=== PATIENT | female | born 1960 | race Caucasian/White ===

== ENCOUNTER 2016-09-16 15:59 | Emergency (ER) | payer BC, OTHER ==
[~2016-09-16] VITALS: Ht 162.6 cm; Wt 90.6 kg
[~2016-09-16 15:59] MED LIST: ACET-1256 PO; ASPI-390 PO; BACL10TA PO; CHOL1000 PO; GABA600T PO; LEVO112T4 PO; LIDO5DIS10 TOP; LINA1CAP2 PO; MISCCAP80 PO; ONDA4TAB46 PO; PANT40TA PO; POLY335025 PO; SERT100T PO; SIMV40TA2 PO
[2016-09-16 16:08] VITALS: TEMP 36.8; Ht 162.6 cm; Wt 90.6 kg
[2016-09-16] MEDS ORDERED: PROCHLORPERAZINE 5 MG/ML 2 ML VIAL IV STA (16:21)
[2016-09-16] MEDS ORDERED: SODIUM CHLORIDE 0.9% 1000ML 1,000 ML IV STA (16:21)
[2016-09-16] MEDS ORDERED: DiphenhydrAMINE HCL 50 MG/ML VIAL IV STA (16:21)
[2016-09-16 16:58] LABS: BASO % 0.4 %; BASO ABS # 0.02 K/uL (0-0.2); COMPLETE YES; EOS % 0.8 %; HEMATOCRIT 42.9 % (37-47); LYMPH % 49.4 %; LYMPH ABS # 2.41 K/uL (1.2-3.4); MEAN CELL VOLUME 85.3 fL (80-100); MEAN CORPUSCULAR HEMOGLOBIN 28.4 pg (25-34); MEAN CORPUSCULAR HGB CONC 33.3 g/dl (32-36); MEAN PLATELET VOLUME 10.4 fL (7.4-10.4); MONO % 5.7 %; NEUT % 43.7 %; PLATELET COUNT 183 K/uL (130-400); RED BLOOD COUNT 5.03 M/uL (4.2-5.4); WHITE BLOOD COUNT 4.88 K/uL (4.8-10.8)
[2016-09-16 17:08] LABS: BUN/CREATININE RATIO 8.7 (10-20); CALCIUM 9.6 mg/dl (8.5-10.1); CREATININE 1.1 mg/dl (0.60-1.20); POTASSIUM 4.1 mmol/L (3.5-5.1)
--- NOTE | 2016-09-16 17:45 | DIAGNOSTIC IMAGING REPORT ---
HEAD CT NONCONTRAST CT DOSE: 638.56 mGycm HISTORY: Headache. Right facial numbness. TECHNIQUE: Multiaxial CT images of the head were performed without the use of intravenous contrast. Automated exposure control was utilized for this study. Comparison: Head CT 03/22/2016. Findings: The paranasal sinuses and mastoid air cells are clear. The calvarium and skull base are intact. The ventricles and sulci are within normal limits. There is no mass, hematoma, midline shift, or acute infarct. Small chronic periventricular white matter lacunar infarcts remain unchanged. Impression: No significant change compared to the prior study. No acute intracranial abnormality. Electronically signed by: Matthew Owens M.D. 09/16/2016 5:44 PM Dictated Date/Time: 09/16/2016 5:41 PM
[2016-09-16] MEDS ORDERED: AMT/50 PO (17:47)
[2016-09-16] MEDS ORDERED: ABL/5 PO (17:47)
[2016-09-16] MEDS ORDERED: NF656 TP (17:47)
[2016-09-16] MEDS ORDERED: METH500T37 PO (17:47)
[2016-09-16] MEDS ORDERED: METO-157 PO (17:47)
[2016-09-16] MEDS ORDERED: CHOL100010 PO (17:47)
[2016-09-16] MEDS ORDERED: SENN-61 PO (17:47)
[2016-09-16] MEDS ORDERED: KETOROLAC TROMETHAMINE 30 MG/ML VIAL IV STA (17:56)
[2016-09-16] MEDS ORDERED: HALOPERIDOL LACTATE 5 MG/ML 1 ML VIAL IV STA (17:56)
[2016-09-16 18:08] VITALS: BP 99/46; PULSE 73; O2SAT 94
--- NOTE | 2016-09-16 19:42 | EMERGENCY ROOM VISIT NOTE ---
History Report prepared by Madyson: Amena Cisneros Under the Supervision of: Dr. Ilan Levine M.D. First contact with patient: 16:13 Chief Complaint: HEADACHE Stated Complaint: PAIN IN HEAD History of Present Illness The patient is a 55 year old female who presents to the Emergency Room with complaints of constant headache for the past 4 days. Her pain is located on the right side of her head. She describes her pain as stabbing and pounding. She rates her pain as a 10/10 in severity. Light exacerbates her pain. The patient is also experiencing nausea. Yesterday she developed numbness and tingling in the right side of her face and in her hands bilaterally. She denies fever and vomiting. She also denies any recent trauma or injury to her head. The patient saw her PCP today for these symptoms and was sent to the ED for a CT scan. The patient has a history of migraine headaches and states that this feels similar to her previous migraines. She tried taking her typical medications including Imitrex and Excedrin, but she has had no relief of her symptoms. Source of History: patient Onset: 4 days ago Position: head Symptom Intensity: 10/10 Quality: stabbing, other (pounding) Timing: constant Modifying Factors (Worsening): other (light) Associated Symptoms: + nausea, + numbness, No fevers, No vomiting Note: She also denies any recent trauma or injury to her head. Review of Systems See HPI for pertinent positives & negatives. A total of 10 systems reviewed and were otherwise negative. Past Medical & Surgical Medical Problems: (1) Constipation (2) Depressive Disorder Nec (3) Esophageal Reflux (4) Gastroparesis (5) Hypertension Nos (6) Migraine Unspecified W/O Intract Mgrn W/O Status Migrainosus (7) Pancreatitis (8) Pure Hypercholesterolem Surgical Problems: (1) Fixation hardware in spine (2) H/O lumbar hemilaminectomy (3) History of bowel resection (4) History of cholecystectomy (5) History of hysterectomy (6) S/P lumbar spinal fusion (7) S/P repair spinal fluid leak Family History Heart disease FATHER (ND, triple bypass) Social History Smoking Status: Never Smoker Marital Status: Housing Status: lives with family Occupation Status: disabled Current/Historical Medications Scheduled Amitriptyline HCl (Amitriptyline HCl), 50 MG PO DAILY Aripiprazole (Abilify), 5 MG PO DAILY Baclofen (Lioresal), 10 MG PO BID Cholecalciferol (Vitamin D), 1,000 MG PO DAILY Gabapentin (Neurontin), 600 MG PO QID Levothyroxine Sodium (Levothyroxine Sodium), 112 MCG PO QAM Lidocaine (Lidoderm Patch 5%), 1 PATCH TP DAILY Linaclotide (Linzess), 290 MCG PO QAM Methocarbamol (Robaxin), 500 MG PO QID Metoclopramide (Reglan), 10 MG PO TID Pantoprazole (Protonix), 40 MG PO QAM Probiotic Product (Probiotic), 4 TAB PO QAM Sertraline Hcl (Zoloft), 200 MG PO QAM Simvastatin (Zocor), 40 MG PO HS Scheduled PRN Acetaminophen (Tylenol), 500 MG PO QID PRN for Pain Ondansetron Hcl (Zofran), 4 MG PO Q6 PRN for Nausea Senna (Senokot), 17.2 MG PO DAILY PRN for Constipation Allergies Coded Allergies: Clarithromycin (Verified Allergy, Intermediate, RASH,DIARRHEA, 08/26/15) Sulfa Antibiotics (Verified Allergy, Intermediate, RASH, 08/26/15) Adhesives (Verified Allergy, Unknown, KBHB-FNRGETN-INEIL TAPE [place] OR COBAN , 08/26/15) Penicillins (Verified Allergy, Unknown, nosebleed,RASH, 08/26/15) Aspirin (Verified Adverse Reaction, Mild, NOSE BLEED, 08/26/15) Erythromycin (Verified Adverse Reaction, Mild, GI UPSET, 08/26/15) Orlistat (Verified Adverse Reaction, Mild, GI UPSET, 08/26/15) Physical Exam Vital Signs Date Time Temp Pulse Resp B/P (MAP) Pulse Ox O2 Delivery O2 Flow Rate FiO2 09/16/16 18:08 73 18 99/46 94 09/16/16 16:08 36.8 64 16 125/71 96 Room Air Physical Exam Constitutional: Vital signs reviewed. Eyes: Pupils are equal round reactive to light. Conjunctiva are noninjected. ENT: Pharynx is clear without erythema or exudate. Mucous membranes are moist. Neck supple without meningeal signs. Respiratory: Clear to auscultation bilaterally. Breath sounds are equal bilaterally. Cardiovascular: Regular rate and rhythm. No rubs or gallops. GI: Soft, nondistended and nontender. Bowel sounds are present. Musculoskeletal: No peripheral edema. No lower extremity tenderness. Integumentary: No cyanosis. Neurological: The patient is awake and alert. Cranial nerves II-XII are intact , except dysesthesia to the right side of her face. Motor is 5 out of 5 all extremities. Sensation is intact to light touch all extremities. Normal speech. No pronator drift. Psychiatric: Normal affect. Medical Decision & Procedures ER Provider Diagnostic Interpretation: Radiology results as stated below per my review and the radiologist's interpretation: HEAD CT NONCONTRAST CT DOSE: 638.56 mGycm HISTORY: Headache. Right facial numbness. TECHNIQUE: Multiaxial CT images of the head were performed without the use of intravenous contrast. Automated exposure control was utilized for this study. Comparison: Head CT 03/22/2016. Findings: The paranasal sinuses and mastoid air cells are clear. The calvarium and skull base are intact. The ventricles and sulci are within normal limits. There is no mass, hematoma, midline shift, or acute infarct. Small chronic periventricular white matter lacunar infarcts remain unchanged. Impression: No significant change compared to the prior study. No acute intracranial abnormality. Electronically signed by: Matthew Owens M.D. 09/16/2016 5:44 PM Dictated Date/Time: 09/16/2016 5:41 PM Laboratory Results 09/16/16 16:40 Red Blood Count 5.03, Mean Corpuscular Volume 85.3, Mean Corpuscular Hemoglobin 28.4, Mean Corpuscular Hemoglobin Concent 33.3, Mean Platelet Volume 10.4, Neutrophils (%) (Auto) 43.7, Lymphocytes (%) (Auto) 49.4, Monocytes (%) (Auto) 5.7, Eosinophils (%) (Auto) 0.8, Basophils (%) (Auto) 0.4, Neutrophils # (Auto) 2.13, Lymphocytes # (Auto) 2.41, Monocytes # (Auto) 0.28, Eosinophils # (Auto) 0.04, Basophils # (Auto) 0.02 09/16/16 16:40 Test 09/16/16 16:40 White Blood Count 4.88 K/uL (4.8-10.8) Red Blood Count 5.03 M/uL (4.2-5.4) Hemoglobin 14.3 g/dL (12.0-16.0) Hematocrit 42.9 % (37-47) Mean Corpuscular Volume 85.3 fL (80-100) Mean Corpuscular Hemoglobin 28.4 pg (25-34) Mean Corpuscular Hemoglobin Concent 33.3 g/dl (32-36) Platelet Count 183 K/uL (130-400) Mean Platelet Volume 10.4 fL (7.4-10.4) Neutrophils (%) (Auto) 43.7 % Lymphocytes (%) (Auto) 49.4 % Monocytes (%) (Auto) 5.7 % Eosinophils (%) (Auto) 0.8 % Basophils (%) (Auto) 0.4 % Neutrophils # (Auto) 2.13 K/uL (1.4-6.5) Lymphocytes # (Auto) 2.41 K/uL (1.2-3.4) Monocytes # (Auto) 0.28 K/uL (0.11-0.59) Eosinophils # (Auto) 0.04 K/uL (0-0.5) Basophils # (Auto) 0.02 K/uL (0-0.2) RDW Standard Deviation 44.3 fL (36.4-46.3) RDW Coefficient of Variation 14.3 % (11.5-14.5) Immature Granulocyte % (Auto) 0.0 % Immature Granulocyte # (Auto) 0.00 K/uL (0.00-0.02) Anion Gap 8.0 mmol/L (3-11) Est Creatinine Clear Calc Drug Dose 63.8 ml/min Estimated GFR () 65.9 Estimated GFR (Non- 56.9 BUN/Creatinine Ratio 8.7 (10-20) Calcium Level 9.6 mg/dl (8.5-10.1) Laboratory results as reviewed by me. Medications Administered Medications (Trade) Dose Ordered Sig/Ophelia Route Start Time Stop Time Status Last Admin Dose Admin Prochlorperazine Edisylate (Compazine Inj) 10 mg NOW STAT IV 09/16/16 16:21 09/16/16 16:23 DC 09/16/16 16:39 10 MG Diphenhydramine HCl (Benadryl Inj) 50 mg NOW STAT IV 09/16/16 16:21 09/16/16 16:23 DC 09/16/16 16:39 50 MG Sodium Chloride 1,000 ml @ 999 mls/hr Q1H1M STAT IV 09/16/16 16:21 09/16/16 17:21 DC 09/16/16 16:21 999 MLS/HR Haloperidol Lactate (Haldol Inj) 1 mg NOW STAT IV 09/16/16 17:56 09/16/16 17:57 DC 09/16/16 18:12 1 MG Ketorolac Tromethamine (Toradol Inj) 10 mg NOW STAT IV 09/16/16 17:56 09/16/16 17:57 DC 09/16/16 18:13 10 MG ED Course 1613: The patient was evaluated in room C7. A complete history and physical exam was performed. 162: NSS 1000 ml @ 999 mls/hr IV, Benadryl 50 mg IV, Compazine 10 mg IV 1754: I updated the patient on her results. She has had no improvement of her headache. 175: Toradol 10 mg IV, Haldol 1 mg IV 1842: I reassessed the patient at this time. She is feeling better and resting comfortably. I discussed the results and treatment plan with the patient. I answered all pertaining questions that she had. She expressed understanding and verbalized agreement. The patient will be discharged home. Medical Decision This is a 55-year-old female who presents with a headache and paresthesias to her fingers and face. Differential diagnosis includes migraine headache, tension headache, intracranial mass, intracranial hemorrhage, metabolic derangement. I did perform a limited focused review of portions of the patient' s old chart on the electronic medical record. The patient had an unremarkable head CT in February 2016. Medication Reconciliation: I attest that I have personally reviewed the patient' s current medication list. Blood Pressure Screening: Patient was found to have an elevated blood pressure and was referred to their primary doctor for recheck and further treatment. I did evaluate the patient as noted above. She is presenting with a migraine headache. She does have some paresthesias to her hands and right-sided her face and so was sent here by her PCP for a CAT scan to rule out stroke or bleed. She does state that the migraine is similar to her prior migraines. IV access was established. I did treat the patient with normal saline, Compazine and Benadryl IV. I did order and review the patient's blood work as noted in the electronic medical record. I did order a CT of the head. I did review the images myself as well as the radiology report as described above. There is no evidence of bleed or stroke. I did reassess the patient. She still has a headache and so I did treat her with IV Haldol and Toradol. On reevaluation the patient states she feels better and wishes to go home. She was advised follow up with her doctor. Impression Primary Impression: Acute headache Additional Impression: Paresthesia Scribe Attestation The scribe's documentation has been prepared under my direct and personally reviewed by me in its entirety. I confirm that the note above accurately reflects all work, treatment, procedures, and medical decision making performed by me. Departure Information Dispostion Home / Self-Care Referrals Keagan Sanchez M.D. Forms HOME CARE DOCUMENTATION FORM, IMPORTANT VISIT INFORMATION Patient Instructions ED Headache Migraine, ED Paraesthesias, My [facility] Additional Instructions You have been examined and treated today on an emergency basis only. This is not a substitute for, or an effort to provide, complete comprehensive medical care. It is impossible to recognize and treat all injuries or illnesses in a single emergency department visit. It is therefore important that you follow up closely with your physician. Call as soon as possible for an appointment. Return for worsening symptoms or if you develop fever, numbness or weakness on one side of your body, difficulties with your speech or walking, or any other concerning symptoms. Problem Qualifiers Primary Impression: Acute headache Headache type: unspecified Intractability: not intractable Qualified Codes : R51 - Headache
[2016-12-24] MEDS ORDERED: IBUP-1459 PO (09:38)
== END 2016-09-16 18:56 | disposition home or self-care (01) ==
LOC: C.EDC 16:26
DX: G43.909 Migraine, unspecified, not intractable, without status migrainosus (principal); R20.9 Unspecified disturbances of skin sensation; K59.00 Constipation, unspecified; F32.9 Major depressive disorder, single episode, unspecified; I10 Essential (primary) hypertension; E78.00 Pure hypercholesterolemia, unspecified; Z90.710 Acquired absence of both cervix and uterus; Z82.49 Family history of ischemic heart disease and other diseases of the circulatory system

== ENCOUNTER → 2016-11-01 | Outpatient (CLI) | payer BC ==
[~2016-11-01] MED LIST changes: +ABL/5 PO; +AMT/50 PO; -ASPI-390 PO; -CHOL1000 PO; +CHOL100010 PO; +IBUP-1459 PO; -LIDO5DIS10 TOP; +METH500T37 PO; +METO-157 PO; +NF656 TP; -POLY335025 PO; +SENN-61 PO
--- NOTE | 2016-11-01 15:15 | DIAGNOSTIC IMAGING REPORT ---
CERVICAL SPINE W/O CT DOSE: 285.65 mGy.cm HISTORY: Pain CERVICAL RADICULOPATHY, DJD, NUMBNESS TINGLING TECHNIQUE: Multiaxial CT images of the cervical spine were performed and reformatted in the sagittal and coronal plane without the use of contrast. A dose lowering technique was utilized adhering to the principles of ALARA. COMPARISON: None. FINDINGS: Straightening of normal cervical curvature. Vertebral body stature is unremarkable. Moderate degenerative disc changes throughout. This is most prominent from C5 through C7. Mild degenerative change of the lateral facets throughout the entire cervical region. No significant compromise of the bony spinal canal. No major neural foraminal narrowing. Moderate degenerative change of the C1-C2 complex. IMPRESSION: 1. Moderate degenerative change of the mid to lower cervical spine. 2. No major compromise of the spinal canal or neural foramina. 3. Moderate degenerative change of the C1-C2 complex The above report was generated using voice recognition software. It may contain grammatical, syntax or spelling errors. Electronically signed by: Sourav Arce M.D. 11/01/2016 3:13 PM Dictated Date/Time: 11/01/2016 3:09 PM
== END | disposition home or self-care (01) ==
LOC: C.CTS 13:22
PROVIDERS: ATTEND Family Medicine
DX: M54.12 Radiculopathy, cervical region (principal); M50.30 Other cervical disc degeneration, unspecified cervical region; R20.0 Anesthesia of skin; R20.2 Paresthesia of skin

== ENCOUNTER → 2017-02-24 | Outpatient (CLI) | payer BC ==
[~2017-02-24] MED LIST changes: -MISCCAP80 PO
--- NOTE | 2017-02-24 09:31 | DIAGNOSTIC IMAGING REPORT ---
THORACIC SPINE 3 VIEWS ROUTINE HISTORY: 56 years-old Female THORACIC FACET SYNDROME acute mid back pain for a few months. No reported trauma. COMPARISON: Lumbar spine radiographs 03/21/2015 TECHNIQUE: 3 views of the thoracic spine FINDINGS: Spinal stimulator leads are seen overlying the region of the central canal with distal tips at the level of T6-T7. The leads appear intact. Multilevel endplate spurring noted throughout the thoracic spine. Schmorl's node is seen involving the superior endplate of what appears to be the L2 vertebral body. No thoracic compression deformity or malalignment. Cholecystectomy clips noted within the right upper abdomen. IMPRESSION: 1. Degenerative changes of the thoracic spine without acute fracture or subluxation. 2. Spinal stimulator leads overlie the central canal with distal tips at the level of T6-T7. The above report was generated using voice recognition software. It may contain grammatical, syntax or spelling errors. Electronically signed by: Rasta Leonard M.D. 02/24/2017 9:30 AM Dictated Date/Time: 02/24/2017 9:28 AM
== END | disposition home or self-care (01) ==
LOC: C.RADBC 08:59
PROVIDERS: ATTEND Physician Assistant Medical
DX: G54.0 Brachial plexus disorders (principal)

== ENCOUNTER 2024-03-04 17:40 | Inpatient (IN) ==
[2024-03-04] MEDS ORDERED: MoRPHine SULFATE 2 MG/ML CARP IV PRN (17:47)
--- NOTE | 2024-03-04 17:52 | Emergency Department Note ---
Impression & Plan Hip fracture, Elbow fracture, Fall ED Provider Note NAME: LORRIANE WILL AGE: 63 SEX: F : 1960 ARRIVES VIA: Ambulance INFORMANT: Patient ED PROVIDER(S): Lm Ruiz DO CHIEF COMPLAINT: Fall HPI: Patient is a 63-year-old female with a past medical history of anxiety, depression, GERD and hyperlipidemia that presents to the ER following a fall. Patient notes that she was walking to his sister's house lost her balance and fell down several steps. She did hit the back of her head. She is complaining of right hip pain. She denies any blood thinners. No chest pain or shortness of breath. She admits to right elbow pain. No tingling numbness. No weakness. No other exacerbating or remitting factors. ADDITIONAL HISTORY OBTAINED: Per HPI Chronic Medical/Social Conditions Affecting Care: Per HPI PAST MEDICAL HISTORY:See Below PAST SURGICAL HISTORY:See Below FAMILY HISTORY:See Below SOCIAL HISTORY:See Below HOME MEDICATIONS:See Below ALLERGIES:See Below VITALS:See Below PHYSICAL EXAMINATION: GENERAL: alert, laying in bed cervical collar in place on [place] HEAD: normal cephalic, atraumatic EYE EXAM: normal conjunctiva, PERRL and EOM's grossly intact OROPHARYNX: no exudate, no erythema, lips, buccal mucosa, and tongue normal and mucous membranes are moist NECK: supple, no nuchal rigidity, no adenopathy, non-tender CHEST: stable to compression anteriorly and posteriorly LUNGS: clear to auscultation. Normal chest wall mechanics HEART: no murmurs, S1 normal and S2 normal ABDOMEN: abdomen soft, non-tender, normo-active bowel sounds, no masses, no rebound or guarding. PELVIS: stable to compression anteriorly and posteriorly BACK: Back is symmetrical on inspection and there is no deformity, no midline tenderness, no CVA tenderness. UPPER EXTREMITIES: full active and passive range of motion of all joints without tenderness to palpation LOWER EXTREMITIES: No tenderness over the left lower extremity with flexion extension of the left hip knee and ankle intact. DPs are 2 out of 4. Gross and station intact. Tenderness over the right hip with the right lower extremity shortened and externally rotated. No tenderness on palpation of distal femur, knee, tib-fib ankle or foot. Gross sensation intact. Skin is intact. NEURO EXAM: Normal sensorium, cranial nerves II-XII grossly intact, normal speech, no gross weakness of arms. GCS: 15. MEDICAL DECISION MAKING: Patient is a 63-year-old female who presents to the ER following a mechanical fall complaining of right elbow and right hip pain. IV was established and blood work was obtained. Labs show mild leukopenia 4.4. Mild anemia 11. INR unremarkable. BMP along with LFTs bilirubin lipase is unremarkable. CT of the head face cervical spine showed no acute pathology. Patient was updated bedside. Discussed case with the hospitalist for further evaluation management treatment. Patient was given IV morphine. Consults/Care Managements Discussions: Per [facility] Triage Nursing notes reviewed. Limited review of prior medical records performed Vital Signs: reviewed and remarkable for no significant abnormalities Differential diagnosis: Differential diagnoses include major intracranial, cervical, spinal, thoracic, abdominal, pelvic and neurologic injury. Fracture, contusion, sprain, strain, laceration, abrasions included as well. ER treatment provided: See below Diagnostics interpreted by me include EKG and cardiac monitoring as listed below: -Cardiac Monitoring: An order was placed for continuous cardiac monitoring. The monitor shows a rate of 80 with sinus rhythm. -ECG: none -Laboratory studies:Interpreted by me as stated above in MDM and shown below. Imaging studies: Xrays: As interpreted by me: Portable AP upright 1 view of the chest shows no focal infiltrate X-rays of the pelvis shows right hip fracture CTs show: CT of the head and cervical spine showed no acute pathologies Procedures:none Critical Care: None Past Med/Surg History Problem List (Updated 03/04/24 @ 21:40 by Lm Ruiz DO) Fall (Acute) Elbow fracture (Acute) Hip fracture (Acute) Fracture of right olecranon process Pathological fracture of right hip due to age-related osteoporosis Fall Battery end of life of spinal cord stimulator Encounter for pre-operative examination Anxiety (Chronic) Depression (Chronic) H/O heart artery stent 2019- stent 2020- stents Hx of myocardial infarction 2019 Hypothyroidism (Chronic) GERD (gastroesophageal reflux disease) (Chronic) Thoracic back pain (Chronic) Cervical facet syndrome (Chronic) Arachnoiditis (Chronic) Entered into PMHX 2018 by pain management Neurogenic bladder (Chronic) Lumbar postlaminectomy syndrome (Chronic) Cervical postlaminectomy syndrome (Chronic) Cervicalgia (Chronic) Lumbar radiculopathy, right (Chronic) Hyperlipidemia (Chronic) Constipation (Chronic) Medical History CAD (coronary artery disease) 2019- stent 2020- stents Follows with [facility] Osteoarthritis Urinary incontinence Anxiety Neuropathy Migraine Surgical History Family history of reaction to anesthesia Mother- slow to wake H/O shoulder replacement right History of esophagogastroduodenoscopy (EGD) History of appendectomy History of tooth extraction History of tonsillectomy and adenoidectomy H/O: hysterectomy S/P insertion of spinal cord stimulator 2014, [place] Patient aware to bring bring remote DOS Fusion of lumbar spine Social History Smoking Status: Never smoker Second Hand Exposure: No; Do You Dip or Chew Tobacco: No; Hx Alcohol Use: No Preferred Language: Ukrainian Communication Ability: Effective Visual Impairment: No Limitations Hearing Ability: Normal Yarder Boss Required: No Beliefs That Will Affect Care: None marital status: Current Living Situation: Spouse current occupational status: disabled Feels Safe at Home: Yes Assistive Devices: Denture - Upper, Denture - Lower and Glasses Allergies Allergies Allergy/AdvReac Type Severity Reaction Status Date / Time clarithromycin Allergy Intermediate Rash, Verified 06/10/23 14:04 diarrhea Sulfa (Sulfonamide Allergy Intermediate Rash Verified 06/10/23 14:04 Antibiotics) adhesive Allergy Unknown Tape- Verified 06/10/23 14:04 redness, paper tape/coban "ok" Penicillins Allergy Unknown Nose Verified 06/10/23 14:04 bleed, rash aspirin AdvReac Mild Nose bleed Verified 06/10/23 14:04 erythromycin base AdvReac Mild GI upset Verified 06/10/23 14:04 orlistat AdvReac Mild GI upset Verified 06/10/23 14:04 Home Meds Home Medications Medication Instructions Recorded Confirmed acetaminophen 500 mg tablet 500 mg PO QID PRN Pain 12/05/17 03/04/24 (Tylenol Extra Strength) levothyroxine 112 mcg capsule 112 mcg PO QAM 12/05/17 03/04/24 metoclopramide HCl 10 mg tablet 10 mg PO TID 12/05/17 03/04/24 (Reglan) ondansetron HCl 4 mg tablet 4 mg PO Q6H PRN Nausea 12/05/17 03/04/24 (Zofran) sertraline 100 mg tablet (Zoloft) 150 mg PO QAM 12/05/17 03/04/24 aspirin 81 mg tablet,delayed 81 mg PO QAM 03/31/23 03/04/24 release (Adult Aspirin Regimen) cholecalciferol (vitamin D3) 25 25 mcg PO QAM 03/31/23 03/04/24 mcg (1,000 unit) capsule tramadol 50 mg tablet 100 mg PO Q6H PRN Moderate Pain 03/31/23 03/04/24 (Scale Score 5-6) amlodipine 5 mg tablet 5 mg PO QAM 05/01/23 03/04/24 atorvastatin 80 mg tablet 80 mg PO QPM 05/01/23 03/04/24 ezetimibe 10 mg tablet 10 mg PO QAM 05/01/23 03/04/24 metoprolol succinate 25 mg 25 mg PO QAM 05/01/23 03/04/24 tablet,extended release 24 hr pantoprazole 40 mg tablet,delayed 40 mg PO QAM 05/01/23 03/04/24 release sucralfate 1 gram tablet 1 g PO BID 05/01/23 03/04/24 topiramate 25 mg sprinkle capsule 50 mg PO HS 05/01/23 03/04/24 baclofen 20 mg tablet 20 mg PO QID 06/03/23 03/04/24 metformin 500 mg tablet 500 mg PO BID 06/03/23 03/04/24 famotidine 20 mg tablet 40 mg PO HS 03/04/24 03/04/24 gabapentin 600 mg tablet 1,200 mg PO TID 03/04/24 03/04/24 Results & Data (ED) Vital Signs Vital Signs - 24 hr 03/04/24 17:52 03/04/24 18:10 Temperature 36.7 C Temperature Source Oral Pulse Rate 74 68 Respiratory Rate 18 Respiratory Effort / Characteristics Non-Labored Spontaneous Respiratory Depth Normal Blood Pressure 155/81 H Blood Pressure Mean 105 Blood Pressure Position Lying Pulse Oximetry 96 Oxygen Delivery Method Room Air Sepsis Recent Fever Within 48 Hours No Sepsis New/Unexplained Change in Mental Status No Sepsis Action Taken by Nursing No Action Required Laboratory Data 03/04/24 18:05 03/04/24 18:05 Lab Results 03/04/24 Range/Units 18:05 WBC 4.43 L (4.8-10.8) K/ul RBC 3.99 L (4.20-5.40) M/uL Hgb 11.1 L (12.0-16.0) g/dl Hct 33.9 L (37.0-47.0) % MCV 85.0 (80.0-100.0) fL MCH 27.8 (25.0-34.0) pg MCHC 32.7 (32.0-36.0) g/dL RDW Std Deviation 45.1 (36.4-46.3) fL RDW Coeff of James 14.5 (11.5-14.5) % Plt Count 172 (130-400) K/uL MPV 9.4 (9.4-12.4) fL Immature Gran % (Auto) 0.5 % Neut % (Auto) 54.5 % Lymph % (Auto) 34.8 % Sharkey % (Auto) 7.9 % Eos % (Auto) 1.6 % Baso % (Auto) 0.7 % Neut # (Auto) 2.42 (1.40-6.50) K/uL Lymph # (Auto) 1.54 (1.20-3.40) K/uL Sharkey # (Auto) 0.35 (0.11-0.59) K/uL Eos # (Auto) 0.07 (0.00-0.50) K/uL Baso # (Auto) 0.03 (0.00-0.20) K/uL Immature Gran # (Auto) 0.02 (0.01-0.20) K/uL PT 10.9 (9.0-12.0) Seconds INR 1.0 (0.9-1.1) APTT 24 (21-31) Seconds PTT Ratio 0.9 Sodium 137 (136-145) mmol/L Potassium 4.0 (3.5-5.1) mmol/L Chloride 105 (98-107) mmol/L Carbon Dioxide 25 (21-32) mmol/L Anion Gap 7 (3-11) BUN 13 (6-23) mg/dl Creatinine 0.90 (0.6-1.2) mg/dl Est Cr Clr Drug Dosing 66.9 ml/min eGFR 72.28 BUN/Creatinine Ratio 14.4 (10-20) Glucose 94 (70-99(Fasting)) mg/dl Calcium 8.7 (8.6-10.3) mg/dl Total Bilirubin 0.4 (0.2-1.0) mg/dl AST 26 (13-39) U/L ALT 25 (7-52) U/L Alkaline Phosphatase 68 (34-104) U/L Total Protein 6.7 (6.0-8.3) gm/dl Albumin 4.6 (3.4-5.0) gm/dl Globulin 2.1 L (2.5-4.0) gm/dl Albumin/Globulin Ratio 2.2 H (0.9-2) Lipase 37 (11-82) U/L Administered Medications Discontinued Medications Morphine Sulfate (Morphine Sulfate 4 Mg/Ml 1 Ml Carp\\Vial) 4 mg IV Q1H PRN PRN Reason: Severe Pain (Rating 7,8,9,10) Stop: 03/18/24 17:46 Last Admin: 03/04/24 18:40 Dose: 4 mg Documented By: Imaging Data Radiologist's Impression: Cervical Spine CT 03/04/24 17:47 EXAM: CT Cervical Spine Without Intravenous Contrast INDICATION: Trauma. TECHNIQUE: Axial computed tomography images of the cervical spine without intravenous contrast. Sagittal and coronal reformatted images were created and reviewed. This CT exam was performed using one or more of the following dose reduction techniques: automated exposure control, adjustment of the mA and/or kV according to patient size, and/or use of iterative reconstruction technique. COMPARISON: 11/01/2016 FINDINGS: Limitations: None. Vertebrae: There is stable mild diffuse facet arthrosis worse on the left. Stable partial anterior bridging C5-C6 and mild asymmetric left uncal spurring. No fracture or subluxation. Discs/spinal canal/neural foramina: Moderate to space narrowing C5-C6. Mild narrowing at other levels. No stenosis. Soft tissues: No significant abnormality noted. Lung apices: No significant abnormality noted. IMPRESSION: Stable mild multilevel degenerative changes without fracture. ACT 112: Negative or not required by law. Electronically signed by Janine Bolton 03-04-2024 6:17 PM Chest X-Ray 03/04/24 17:47 EXAM: Radiograph of the Chest 1 View INDICATION: Fall. TECHNIQUE: Frontal view of the chest. COMPARISON: 03/22/2016 FINDINGS: Lungs and pleural spaces: No consolidation or pulmonary edema. No pleural effusion or pneumothorax. Heart: Shape and configuration within normal limits allowing for technique. Mediastinum: Normal contour. Bones/joints: See below. Soft tissues: No abnormality noted. No radiopaque foreign body noted. Tubes, lines and devices: Stable dorsal column electrode terminating at the mid thoracic level. Visualized right reverse shoulder arthroplasty components well-seated. No acute fracture visible. Upper abdomen: Stable right diaphragmatic eventration and mild chronic interstitial scarring. IMPRESSION: No acute cardiopulmonary disease. ACT 112: Negative or not required by law. Electronically signed by Janine Bolton 03-04-2024 6:[address] 03/04/24 17:47 EXAM: CT Head Without Intravenous Contrast INDICATION: Trauma. TECHNIQUE: Axial computed tomography images of the head/brain without intravenous contrast. Sagittal and/or coronal reformats are provided. Sagittal and coronal reformatted images were created and reviewed. This CT exam was performed using one or more of the following dose reduction techniques: automated exposure control, adjustment of the mA and/or kV according to patient size, and/or use of iterative reconstruction technique. COMPARISON: 09/16/2016 FINDINGS: Limitations: None. Brain and extra-axial spaces: Stable bifrontal foci of encephalomalacia. Chronic appearing small looking noted in the right jeramie. No acute territorial infarct. No extra-axial fluid collection or hydrocephalus. No hemorrhage. Bones/joints: No acute changes. Soft tissues: No significant abnormality noted. Vasculature: No acute abnormality noted. Sinuses: No layering fluid in the visualized portions of the paranasal sinuses. Mastoid air cells: No mastoid effusion. Orbits: No significant abnormality noted. IMPRESSION: Stable chronic changes. No acute disease. ACT 112: Negative or not required by law. Electronically signed by Janine Bolton 03-04-2024 6:13 PM Hip/Pelvis X-Ray 03/04/24 17:47 Study: Pelvis, 1 view, right hip, 2 views History: Pain Comparison: None Findings/ Impression: Right comminuted intertrochanteric fracture with displacement of the greater and lesser trochanters, and foreshortening. The femoral acetabular joint spaces appear intact. No additional acute bony abnormalities are definitely seen. The bones are osteopenic. Left hip appears intact. There are fixation changes of the lumbar spine. Electronically signed by Domenico Cain 03-04-2024 8:07 PM Elbow X-Ray 03/04/24 17:51 Study: Right elbow 4 views History: Pain Comparison: None Findings/ Impression: There is an avulsion fracture of the olecranon process, which has avulsed by approximately 2 cm. There is extensive dorsal elbow soft tissue swelling. An elbow joint effusion is present. The radius and humerus appear intact. The bones are osteopenic. Electronically signed by Domenico Cain 03-04-2024 8:07 PM Discharge Plan Visit Data Chief Complaint: Fall Stated Complaint: INJURY ALERT, FALL ED Provider: Lm Ruiz Discharge Problem: Hip fracture, Elbow fracture, Fall Patient Disposition: Admitted As Inpatient Discharge Instructions Interventions: ED Discharge Assessment Last Done: 03/04/24 21:13 Discharge Problem: Hip fracture Qualifiers: Encounter type: initial encounter Fracture type: closed Laterality: right Q ualified Code(s): S72.001A - Fracture of unspecified part of neck of right femur, initial encounter for closed fracture Elbow fracture Qualifiers: Encounter type: initial encounter Fracture type: closed Laterality: right Q ualified Code(s): S42.401A - Unspecified fracture of lower end of right humerus, initial encounter for closed fracture Fall Qualifiers: Encounter type: initial encounter Qualified Code(s): W19.XXXA - Unspecified fall, initial encounter
--- NOTE | 2024-03-04 18:16 | CT Scan Report ---
EXAM: CT Head Without Intravenous Contrast INDICATION: Trauma. TECHNIQUE: Axial computed tomography images of the head/brain without intravenous contrast. Sagittal and/or coronal reformats are provided. Sagittal and coronal reformatted images were created and reviewed. This CT exam was performed using one or more of the following dose reduction techniques: automated exposure control, adjustment of the mA and/or kV according to patient size, and/or use of iterative reconstruction technique. COMPARISON: 09/16/2016 FINDINGS: Limitations: None. Brain and extra-axial spaces: Stable bifrontal foci of encephalomalacia. Chronic appearing small looking noted in the right jeramie. No acute territorial infarct. No extra-axial fluid collection or hydrocephalus. No hemorrhage. Bones/joints: No acute changes. Soft tissues: No significant abnormality noted. Vasculature: No acute abnormality noted. Sinuses: No layering fluid in the visualized portions of the paranasal sinuses. Mastoid air cells: No mastoid effusion. Orbits: No significant abnormality noted. IMPRESSION: Stable chronic changes. No acute disease. ACT 112: Negative or not required by law. Electronically signed by Janine Bolton 03-04-2024 6:13 PM
--- NOTE | 2024-03-04 18:17 | CT Scan Report ---
EXAM: CT Cervical Spine Without Intravenous Contrast INDICATION: Trauma. TECHNIQUE: Axial computed tomography images of the cervical spine without intravenous contrast. Sagittal and coronal reformatted images were created and reviewed. This CT exam was performed using one or more of the following dose reduction techniques: automated exposure control, adjustment of the mA and/or kV according to patient size, and/or use of iterative reconstruction technique. COMPARISON: 11/01/2016 FINDINGS: Limitations: None. Vertebrae: There is stable mild diffuse facet arthrosis worse on the left. Stable partial anterior bridging C5-C6 and mild asymmetric left uncal spurring. No fracture or subluxation. Discs/spinal canal/neural foramina: Moderate to space narrowing C5-C6. Mild narrowing at other levels. No stenosis. Soft tissues: No significant abnormality noted. Lung apices: No significant abnormality noted. IMPRESSION: Stable mild multilevel degenerative changes without fracture. ACT 112: Negative or not required by law. Electronically signed by Janine Bolton 03-04-2024 6:17 PM
[2024-03-04 18:28] LABS: Basophils # (auto) 0.03 K/uL (0.00-0.20); Basophils % (auto) 0.7 %; Eosinophils # (auto) 0.07 K/uL (0.00-0.50); Eosinophils % (auto) 1.6 %; Hematocrit (blood only) 33.9 % (37.0-47.0); Hemoglobin 11.1 g/dl (12.0-16.0); Immature Granulocytes # (auto) 0.02 K/uL (0.01-0.20); Immature Granulocytes % (auto) 0.5 %; Lymphocytes # (auto) 1.54 K/uL (1.20-3.40); Lymphocytes % (auto) 34.8 %; Mean Corpuscular Hemoglobin 27.8 pg (25.0-34.0); Mean Corpuscular Hgb Conc 32.7 g/dL (32.0-36.0); Mean Platelet Volume 9.4 fL (9.4-12.4); Monocytes # (auto) 0.35 K/uL (0.11-0.59); Monocytes % (auto) 7.9 %; Neutrophils # (auto) 2.42 K/uL (1.40-6.50); Neutrophils % (auto) 54.5 %; Platelet Count 172 K/uL (130-400); RDW Coefficient of Variation 14.5 % (11.5-14.5); RDW Standard Deviation 45.1 fL (36.4-46.3); Red Blood Count 3.99 M/uL (4.20-5.40); White Blood Count 4.43 K/ul (4.8-10.8)
--- NOTE | 2024-03-04 18:29 | XRay Report ---
EXAM: Radiograph of the Chest 1 View INDICATION: Fall. TECHNIQUE: Frontal view of the chest. COMPARISON: 03/22/2016 FINDINGS: Lungs and pleural spaces: No consolidation or pulmonary edema. No pleural effusion or pneumothorax. Heart: Shape and configuration within normal limits allowing for technique. Mediastinum: Normal contour. Bones/joints: See below. Soft tissues: No abnormality noted. No radiopaque foreign body noted. Tubes, lines and devices: Stable dorsal column electrode terminating at the mid thoracic level. Visualized right reverse shoulder arthroplasty components well-seated. No acute fracture visible. Upper abdomen: Stable right diaphragmatic eventration and mild chronic interstitial scarring. IMPRESSION: No acute cardiopulmonary disease. ACT 112: Negative or not required by law. Electronically signed by Janine Bolton 03-04-2024 6:29 PM
[2024-03-04] MEDS: MoRPHine SULFATE 4 MG/ML 1 ML CARP\\VIAL IV PRN ×2 (18:40→21:37)
[2024-03-04 18:43] LABS: Albumin Globulin Ratio 2.2 (0.9-2); Albumin Level 4.6 gm/dl (3.4-5.0); BUN Creatinine Ratio 14.4 (10-20); Bilirubin,Total 0.4 mg/dl (0.2-1.0); Calcium 8.7 mg/dl (8.6-10.3); Creatinine Clr Calc Pharmacy 66.9 ml/min; Globulin 2.1 gm/dl (2.5-4.0); Total Protein 6.7 gm/dl (6.0-8.3)
[2024-03-04 18:53] LABS: Partial Thromboplastin Ratio 0.9; Partial Thromboplastin Time 24 Seconds (21-31); Prothrombin Time 10.9 Seconds (9.0-12.0)
--- NOTE | 2024-03-04 19:02 | History & Physical Report ---
Date of Service March 04, 2024 Assessment & Plan (1) Fall: (2) Pathological fracture of right hip due to age-related osteoporosis: (3) Fracture of right olecranon process: (4) CAD (coronary artery disease): Plan This is a 63 yr old F who has a significant PMH of CAD with hx of coronary stent, HTN, HLD, hx of atrial flutter, Pre DM, Hypothyroidism, Gastroparesis, chronic superficial gastritis, Gerd, Osteoporosis, Depression with anxiety, DDD, neurostimulator device in situ who presents to ED after sustaining a fall. Mechanical Fall Pathologic fx of R hip due to age related osteoporosis Fracture of R olecranon process admit to med/surg consult orthopedics bedrest, ICE TID to elbow/hip, Splint ordered in ED for olecranon fx, currently NVI NPO after midnght EKG, CXR reviewed, medically stable to undergo surgical intervention if required RCRI score of 1, 6% risk of major cardiac event continue ASA and metoprolol uninterrupted CAD hx of LIZBETH x 3 (refer to HPI for details) HTN HLD follows [facility] Cards on asa, statin, metoprolol, amlodipine, statin no CP or SOB, ecg reviewed w/o ischemic change in the pre op setting Chronic Back pain/hx of lumbar surgery/neurostimulator device insitu: chronic pain management Pre DM: a1c 6.0, hold metformin, no indication for ISS at this time Hypothyroidism: continue levothyroxine Gastroparesis/Chronic superficial gastritis: continue PPI, sucralfate, reglan DVT ppx: SCDS for now, recommend chemical prophylaxis when ok with orthopedics FULL CODE PCP: Dr. Keagan Sanchez Dispo: admit to medical Pt was seen and examined in collaboration with Dr. Nails, please see addendum I spent a total of 65 minutes reviewing notes, outpatient records, labs, medication, coordinating, documenting and providing care for this patient excluding time spent in the performance of separately billed services. 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 Hx obtained from pt and outpt chart review. She was going into her sisters house and she has 2 concrete steps. She was trying to go up the steps when she lost footing and fell backwards.She reports hitting her head, back, Right elbow and R leg. She denies LOC or syncope. She reports significant pain to her R elbow, back and R hip. After she fell she instantly knew she broke something. She denies any f/c/s, chest pain, sob, n/v/d. Prior to todays events she denies any cardiopulmonary symptoms with exertion. She reports being able to do a flight of steps w/o chest pain or SOB. PT cardiac hx includes NSTEMI in 2019 resulting in [place]AUFFEUR of pLAD with 1 LIZBETH. 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 August 2020 unstable angina with EKG showing new anterior T wave inversions and underwent cardiac cath. Angiography revealed 80% stenosis of ostial and mid segments of 1st diagonal branch that was treated with 2 LIZBETH. Her last echo was August which showed EF 60-64%, no WMA, and proximal ascending aorta enlarged at 4.0cm. Allergies Allergy/AdvReac Type Severity Reaction Status Date / Time clarithromycin Allergy Intermediate Rash, Verified 06/10/23 14:04 diarrhea Sulfa (Sulfonamide Allergy Intermediate Rash Verified 06/10/23 14:04 Antibiotics) adhesive Allergy Unknown Tape- Verified 06/10/23 14:04 redness, paper tape/coban "ok" Penicillins Allergy Unknown Nose Verified 06/10/23 14:04 bleed, rash aspirin AdvReac Mild Nose bleed Verified 06/10/23 14:04 erythromycin base AdvReac Mild GI upset Verified 06/10/23 14:04 orlistat AdvReac Mild GI upset Verified 06/10/23 14:04 Home Medications Medication Instructions Recorded Confirmed Type acetaminophen 500 mg tablet 500 mg PO QID PRN Pain 12/05/17 03/04/24 History (Tylenol Extra Strength) levothyroxine 112 mcg capsule 112 mcg PO QAM 12/05/17 03/04/24 History metoclopramide HCl 10 mg tablet 10 mg PO TID 12/05/17 03/04/24 History (Reglan) ondansetron HCl 4 mg tablet 4 mg PO Q6H PRN Nausea 12/05/17 03/04/24 History (Zofran) sertraline 100 mg tablet (Zoloft) 150 mg PO QAM 12/05/17 03/04/24 History aspirin 81 mg tablet,delayed 81 mg PO QAM 03/31/23 03/04/24 History release (Adult Aspirin Regimen) cholecalciferol (vitamin D3) 25 25 mcg PO QAM 03/31/23 03/04/24 History mcg (1,000 unit) capsule tramadol 50 mg tablet 100 mg PO Q6H PRN Moderate Pain 03/31/23 03/04/24 History (Scale Score 5-6) amlodipine 5 mg tablet 5 mg PO QAM 05/01/23 03/04/24 History atorvastatin 80 mg tablet 80 mg PO QPM 05/01/23 03/04/24 History ezetimibe 10 mg tablet 10 mg PO QAM 05/01/23 03/04/24 History metoprolol succinate 25 mg 25 mg PO QAM 05/01/23 03/04/24 History tablet,extended release 24 hr pantoprazole 40 mg tablet,delayed 40 mg PO QAM 05/01/23 03/04/24 History release sucralfate 1 gram tablet 1 g PO BID 05/01/23 03/04/24 History topiramate 25 mg sprinkle capsule 50 mg PO HS 05/01/23 03/04/24 History baclofen 20 mg tablet 20 mg PO QID 06/03/23 03/04/24 History metformin 500 mg tablet 500 mg PO BID 06/03/23 03/04/24 History famotidine 20 mg tablet 40 mg PO HS 03/04/24 03/04/24 History gabapentin 600 mg tablet 1,200 mg PO TID 03/04/24 03/04/24 History Past Med/Surg History Problem List (Updated 03/04/24 @ 19:51 by Estela Aguilera PA-C) Fracture of right olecranon process Pathological fracture of right hip due to age-related osteoporosis Fall Battery end of life of spinal cord stimulator Encounter for pre-operative examination Anxiety (Chronic) Depression (Chronic) H/O heart artery stent 2019- stent 2020- stents Hx of myocardial infarction 2019 Hypothyroidism (Chronic) GERD (gastroesophageal reflux disease) (Chronic) Thoracic back pain (Chronic) Cervical facet syndrome (Chronic) Arachnoiditis (Chronic) Entered into PMX 2018 by pain management Neurogenic bladder (Chronic) Lumbar postlaminectomy syndrome (Chronic) Cervical postlaminectomy syndrome (Chronic) Cervicalgia (Chronic) Lumbar radiculopathy, right (Chronic) Hyperlipidemia (Chronic) Constipation (Chronic) Medical History CAD (coronary artery disease) 2019- stent 2020- stents Follows with S cardio Osteoarthritis Urinary incontinence Anxiety Neuropathy Migraine Surgical History Family history of reaction to anesthesia Mother- slow to wake H/O shoulder replacement right History of esophagogastroduodenoscopy (EGD) History of appendectomy History of tooth extraction History of tonsillectomy and adenoidectomy H/O: hysterectomy S/P insertion of spinal cord stimulator 2014, [employer] Patient aware to bring bring remote DOS Fusion of lumbar spine Social History Smoking Status: Never smoker Second Hand Exposure: No; Do You Dip or Chew Tobacco: No; Hx Alcohol Use: No Preferred Language: Ivorian Communication Ability: Effective Visual Impairment: No Limitations Hearing Ability: Normal Software Architect Required: No Beliefs That Will Affect Care: None marital status: Current Living Situation: Spouse current occupational status: disabled Feels Safe at Home: Yes Assistive Devices: Denture - Upper, Denture - Lower and Glasses Review of Systems Review of Systems: All systems reviewed & are unremarkable except as noted in HPI & below Physical Exam Physical Exam: please refer to Dr. Nails addendum for physical exam findings. Results & Data Results & Data Vital Signs (Past 12 Hours) Vital Signs Temp Pulse Resp BP Pulse Ox O2 Del Method 03/04/24 18:10 68 03/04/24 17:52 36.7 C 74 18 155/81 H 96 Room Air Laboratory Results I have independently reviewed and interpreted patient's admitting labs including CBC, CMP, PTT, PT/INR, lipase Diagnostic Findings Cervical Spine CT 03/04/24 17:47 EXAM: CT Cervical Spine Without Intravenous Contrast INDICATION: Trauma. TECHNIQUE: Axial computed tomography images of the cervical spine without intravenous contrast. Sagittal and coronal reformatted images were created and reviewed. This CT exam was performed using one or more of the following dose reduction techniques: automated exposure control, adjustment of the mA and/or kV according to patient size, and/or use of iterative reconstruction technique. COMPARISON: 11/01/2016 FINDINGS: Limitations: None. Vertebrae: There is stable mild diffuse facet arthrosis worse on the left. Stable partial anterior bridging C5-C6 and mild asymmetric left uncal spurring. No fracture or subluxation. Discs/spinal canal/neural foramina: Moderate to space narrowing C5-C6. Mild narrowing at other levels. No stenosis. Soft tissues: No significant abnormality noted. Lung apices: No significant abnormality noted. IMPRESSION: Stable mild multilevel degenerative changes without fracture. ACT 112: Negative or not required by law. Electronically signed by Janine Bolton 03-04-2024 6:17 PM Chest X-Ray 03/04/24 17:47 EXAM: Radiograph of the Chest 1 View INDICATION: Fall. TECHNIQUE: Frontal view of the chest. COMPARISON: 03/22/2016 FINDINGS: Lungs and pleural spaces: No consolidation or pulmonary edema. No pleural effusion or pneumothorax. Heart: Shape and configuration within normal limits allowing for technique. Mediastinum: Normal contour. Bones/joints: See below. Soft tissues: No abnormality noted. No radiopaque foreign body noted. Tubes, lines and devices: Stable dorsal column electrode terminating at the mid thoracic level. Visualized right reverse shoulder arthroplasty components well-seated. No acute fracture visible. Upper abdomen: Stable right diaphragmatic eventration and mild chronic interstitial scarring. IMPRESSION: No acute cardiopulmonary disease. ACT 112: Negative or not required by law. Electronically signed by Janine Bolton 03-04-2024 6:[address] 03/04/24 17:47 EXAM: CT Head Without Intravenous Contrast INDICATION: Trauma. TECHNIQUE: Axial computed tomography images of the head/brain without intravenous contrast. Sagittal and/or coronal reformats are provided. Sagittal and coronal reformatted images were created and reviewed. This CT exam was performed using one or more of the following dose reduction techniques: automated exposure control, adjustment of the mA and/or kV according to patient size, and/or use of iterative reconstruction technique. COMPARISON: 09/16/2016 FINDINGS: Limitations: None. Brain and extra-axial spaces: Stable bifrontal foci of encephalomalacia. Chronic appearing small looking noted in the right [place]am[place]. No acute territorial infarct. No extra-axial fluid collection or hydrocephalus. No hemorrhage. Bones/joints: No acute changes. Soft tissues: No significant abnormality noted. Vasculature: No acute abnormality noted. Sinuses: No layering fluid in the visualized portions of the paranasal sinuses. Mastoid air cells: No mastoid effusion. Orbits: No significant abnormality noted. IMPRESSION: Stable chronic changes. No acute disease. ACT 112: Negative or not required by law. Electronically signed by Janine Bolton 03-04-2024 6:13 PM Medications Administered Medication List Morphine Sulfate (Morphine Sulfate 4 Mg/Ml 1 Ml Carp\\Vial) 4 mg IV Q1H PRN PRN Reason: Severe Pain (Rating 7,8,9,10) Stop: 03/18/24 17:46 Last Admin: 03/04/24 18:40 Dose: 4 mg Documented By: HS ECG Additional Comments: I have independently reviewed and interpreted patient's admitting EKG which revealed: NSR [address] wave changes qtc 446ms COVID-19 Results Results COVID-19 Adm Lab Results: RBC 3.99 M/uL (4.20-5.40) L 03/04/24 WBC 4.43 K/ul (4.8-10.8) L 03/04/24 Hgb 11.1 g/dl (12.0-16.0) L 03/04/24 Hct 33.9 % (37.0-47.0) L 03/04/24 Plt Count 172 K/uL (130-400) 03/04/24 Neutrophils (%) (Auto) 54.5 % 03/04/24 Lymphocytes (%) (Auto) 34.8 % 03/04/24 Monocytes # (Auto) 0.35 K/uL (0.11-0.59) 03/04/24 Eosinophils # (Auto) 0.07 K/uL (0.00-0.50) 03/04/24 Immature Granulocyte % (Auto) 0.5 % 03/04/24 Neutrophils # (Auto) 2.42 K/uL (1.40-6.50) 03/04/24 Lymphocytes # (Auto) 1.54 K/uL (1.20-3.40) 03/04/24 Monocytes # (Auto) 0.35 K/uL (0.11-0.59) 03/04/24 Eosinophils # (Auto) 0.07 K/uL (0.00-0.50) 03/04/24 Basophils # (Auto) 0.03 K/uL (0.00-0.20) 03/04/24 Immature Granulocyte # (Auto) 0.02 K/uL (0.01-0.20) 4 Na 137 mmol/L (136-145) 03/04/24 K 4.0 mmol/L (3.5-5.1) 03/04/24 Cl 105 mmol/L (98-107) 03/04/24 CO2 25 mmol/L (21-32) 03/04/24 Anion Gap 7 (3-11) 03/04/24 BUN 13 mg/dl (6-23) 03/04/24 Creatinine 0.90 mg/dl (0.6-1.2) 03/04/24 BUN/Creatinine Ratio 14.4 (10-20) 03/04/24 Glucose Level 94 mg/dl (70-99(Fasting)) 03/04/24 Ca 8.7 mg/dl (8.6-10.3) 03/04/24 Total Bilirubin 0.4 mg/dl (0.2-1.0) 03/04/24 AST/SGOT 26 U/L (13-39) 03/04/24 ALT/SGPT 25 U/L (7-52) 03/04/24 Alkaline Phosphatase 68 U/L (34-104) 03/04/24 Total Protein 6.7 gm/dl (6.0-8.3) 03/04/24 Albumin 4.6 gm/dl (3.4-5.0) 03/04/24 Globulin 2.1 gm/dl (2.5-4.0) L 03/04/24 Albumin/Globulin Ratio 2.2 (0.9-2) H 03/04/24 PTT 24 Seconds (21-31) 03/04/24 INR 1.0 (0.9-1.1) 03/04/24 Chest X-Ray 03/04/24 Code Status & VTE Plan VTE Prophylaxis Plan VTE Prophylaxis will be ordered: No Supervising Physician Co-Signing Physician Notes Patient is a 63-year-old female with history of coronary artery disease, hypothyroidism, GERD, hyperlipidemia, gastroparesis and other medical problems presents with significant right hip, right elbow, back pain after sustaining a fall. Patient was trying to going to her sister's house and missed a step resulting in the fall backwards. She reports hitting her head but denies any loss of consciousness. She was unable to get up on the floor secondary to significant pain. Please review HPI for complete details of presentation. I personally reviewed blood work and imaging studies. Elbow x-ray suggestive of avulsion fracture of the olecranon process and also showed extensive soft tissue swelling, joint effusion. Hip x-ray suggestive of right comminuted intertrochanteric fracture with displacement of the greater and lesser troc hanters and foreshortening. Physical Exam: Vitals signs as noted above General Appearance: Obese, mild distress secondary to pain Head: normocephalic, Atraumatic Eyes: normal inspection, EOMI Neck: supple, Trachea midline Respiratory/Chest: Normal breath sounds, CTA, No accessory muscle use Cardiovascular: S1, S2, No murmur Abdomen/GI:Soft, Non tender, Bowel sounds present Extremities/Musculoskeletal:normal inspection, Trace, edema, right hip decreased ROM due to pain, tender, swelling, right elbow decreased ROM, swelling, tender Neurologic/Psych:AAOX3, grossly no focal neurological deficits Skin: normal color, warm Right hip comminuted intertrochanteric fracture with displacement Right elbow fracture Secondary to fall Fall precautions Pain control Orthopedics consulted NETWORK AND THREAT SUPPORT SPECIALIST after midnight PT OT when appropriate Bowel regimen to prevent constipation I personally interviewed and examined at bedside. Patient's care is coordinated with Estela Aguilera PA-C. I have reviewed the advanced practitioner's documentation, and I agree with plan of care. Please refer to the documentation above for details of patient's presentation and for discussion of other issues. I spent a total of25 minutes coordinating, documenting, and providing care for this patient excluding time spent in the performance of separately billed services.
--- NOTE | 2024-03-04 20:07 | XRay Report ---
Study: Right elbow 4 views History: Pain Comparison: None Findings/ Impression: There is an avulsion fracture of the olecranon process, which has avulsed by approximately 2 cm. There is extensive dorsal elbow soft tissue swelling. An elbow joint effusion is present. The radius and humerus appear intact. The bones are osteopenic. Electronically signed by Domenico Cain 03-04-2024 8:07 PM
--- NOTE | 2024-03-04 20:07 | XRay Report ---
Study: Pelvis, 1 view, right hip, 2 views History: Pain Comparison: None Findings/ Impression: Right comminuted intertrochanteric fracture with displacement of the greater and lesser trochanters, and foreshortening. The femoral acetabular joint spaces appear intact. No additional acute bony abnormalities are definitely seen. The bones are osteopenic. Left hip appears intact. There are fixation changes of the lumbar spine. Electronically signed by Domenico Cain 03-04-2024 8:07 PM
[2024-03-04] MEDS ORDERED: POLYETHYLENE (MIRALAX) 17 GM PACK PO PRN (21:26)
[2024-03-04] MEDS ORDERED: NALOXONE HCL 0.4 MG/1 ML VIAL/CARP IV PRN (21:26)
[2024-03-04] MEDS ORDERED: bisacodyL 10 MG SUPP PR PRN (21:26)
[2024-03-04] MEDS: ONDANSETRON INJ 2 MG/ML 2 ML VIAL IV PRN (21:37)
[2024-03-04] MEDS: oxyCODONE HCL IR 5 MG TAB (IMMEDIATE RELEASE) PO PRN (22:31)
[2024-03-04] MEDS: MELATONIN 3 MG TAB PO PRN (22:31)
[2024-03-04] MEDS: TOPIRAMATE 50 MG TAB PO SCH (22:34)
[2024-03-04] MEDS: FAMOTIDINE 40 MG TABLET PO SCH (22:35)
[2024-03-04] MEDS: BACLOFEN 20 MG TAB PO SCH (22:35)
[2024-03-04] MEDS: METOCLOPRAMIDE HCL 10 MG TABLET PO SCH (22:35)
[2024-03-04] MEDS: ATORVASTATIN 40 MG TAB PO SCH (22:35)
[2024-03-04] MEDS: SUCRALFATE 1 GM TAB PO SCH (22:35)
[2024-03-04] MEDS: GABAPENTIN 600 MG TAB PO SCH (22:35)
[2024-03-04] MEDS: DOCUSATE SODIUM/SENNA 50/8.6MG TAB PO SCH (22:36)
[2024-03-04] MEDS: POLYETHYLENE (MIRALAX) 17 GM PACK PO SCH (22:36)
--- NOTE | 2024-03-04 23:59 | CT Scan Report ---
Exam(s): CT T SPINE EXAM: CT Thoracic Spine Without Intravenous Contrast CLINICAL HISTORY: Reason for exam: fall pain. TECHNIQUE: Axial computed tomography images of the thoracic spine without intravenous contrast. CTDI is 39.37 mGy and DLP is 2127.36 mGy-cm. Automated exposure control was utilized for the study. A dose lowering technique was utilized adhering to the principles of ALARA. COMPARISON: Prior plain film images of the thoracic spine from May 26, 2018. FINDINGS: Vertebrae: Unremarkable. No acute fracture. Diffuse osteopenia throughout the visualized bones. Discs/spinal canal/neural foramina: No acute findings. There is a spinal cord stimulator with distal electrode array in the dorsal epidural space extending from T6-T9. No spinal canal stenosis. Soft tissues: Unremarkable. IMPRESSION: No evidence of acute thoracic spine pathology. Electronically signed by: Adriana Munguia MD 03/04/24 23:57 PM
--- NOTE | 2024-03-05 00:14 | CT Scan Report ---
Exam(s): CT L SPINE EXAM: CT Lumbar Spine Without Intravenous Contrast CLINICAL HISTORY: Reason for exam: fall, pain. TECHNIQUE: Axial computed tomography images of the lumbar spine without intravenous contrast. CTDI is 39.37 mGy and DLP is 2127.36 mGy-cm. Automated exposure control was utilized for the study. A dose lowering technique was utilized adhering to the principles of ALARA. COMPARISON: Prior plain film images of the lumbar spine from May 26, 2018. FINDINGS: Vertebrae: Remote superior endplate fracture deformities of the L1 and S1 segments. Status post posterior decompression of L3. Status post posterior fusion of L4-S1 with transpedicular screws and connecting rods in place. Diffuse osteopenia throughout the visualized bones. No acute fracture. Discs/spinal canal/neural foramina: There is a cord stimulator electrodes extend into the dorsal epidural space at L1-L2. No acute findings. No spinal canal stenosis. Soft tissues: There is a cord stimulator battery pack in the left subcutaneous tissues at the level of L1 and L2. IMPRESSION: No evidence of acute lumbar spine pathology. Electronically signed by: Adriana Munguia MD 03/05/24 00:13 AM
[2024-03-05] MEDS: oxyCODONE HCL IR 5 MG TAB (IMMEDIATE RELEASE) PO PRN (01:36)
[2024-03-05] MEDS: KETOROLAC TROMETHAMINE 15 MG/ML VIAL IV ONE (01:41)
[2024-03-05] MEDS: HYDROmorphone INJ 1 MG/ML SYRINGE IV PRN (05:07)
[2024-03-05] MEDS: LEVOTHYROXINE SODIUM 112 MCG TABLET PO SCH (05:07)
[2024-03-05 07:04] LABS: Basophils # (auto) 0.02 K/uL (0.00-0.20); Basophils % (auto) 0.4 %; Eosinophils # (auto) 0.02 K/uL (0.00-0.50); Eosinophils % (auto) 0.4 %; Hematocrit (blood only) 29.7 % (37.0-47.0); Hemoglobin 9.8 g/dl (12.0-16.0); Immature Granulocytes # (auto) 0.02 K/uL (0.01-0.20); Immature Granulocytes % (auto) 0.4 %; Lymphocytes # (auto) 1.78 K/uL (1.20-3.40); Lymphocytes % (auto) 32.3 %; Mean Corpuscular Hemoglobin 28.4 pg (25.0-34.0); Mean Corpuscular Volume 86.1 fL (80.0-100.0); Mean Platelet Volume 9.6 fL (9.4-12.4); Monocytes # (auto) 0.56 K/uL (0.11-0.59); Monocytes % (auto) 10.2 %; Neutrophils # (auto) 3.11 K/uL (1.40-6.50); Neutrophils % (auto) 56.3 %; Platelet Count 174 K/uL (130-400); RDW Coefficient of Variation 14.8 % (11.5-14.5); RDW Standard Deviation 46.1 fL (36.4-46.3); Red Blood Count 3.45 M/uL (4.20-5.40); White Blood Count 5.51 K/ul (4.8-10.8)
[2024-03-05 07:12] LABS: BUN Creatinine Ratio 17.7 (10-20); Calcium 8.3 mg/dl (8.6-10.3); Creatinine Clr Calc Pharmacy 77.6 ml/min; Potassium 4.3 mmol/L (3.5-5.1)
--- NOTE | 2024-03-05 07:37 | Orthopedic Consultation ---
Date of Consultation March 05, 2024 Assessment & Plan (1) Fracture of right olecranon process: Discussed the diagnosis and treatment options with the patient. Surgical management is recommended as she will have difficulty walking without surgery for the right femur fracture. Similarly, surgery is recommended for her right olecranon fracture if she would have difficulty supporting herself without a functioning triceps/extensor mechanism for her elbow. I reviewed the risks and benefits of the surgery is, alternatives to surgery, and expected outcomes. Surgical plan would be open reduction internal fixation of the right olecranon fracture and intramedullary jordan for the right intertrochanteric femur fracture. She understands that because of the multiple trauma nature of her injuries that she is at increased risk of complications and particularly we may have difficulty mobilizing her out of bed. After reviewing all of her options she elects to proceed with surgery. All questions were answered. Informed consent was signed. She has been n.p.o. since midnight last night. Plan to proceed to the operating room today. Readmit to internal medicine after surgery. (2) Fracture, subtrochanteric, right femur, closed: (3) S/P lumbar spinal fusion: (4) Obesity: History of Present Illness Attending Physician: James Donohue MD History of Present Illness This is a 63 yr old F who has a significant PMH of CAD with hx of coronary stent, HTN, HLD, hx of atrial flutter, Pre DM, Hypothyroidism, Gastroparesis, chronic superficial gastritis, Gerd, Osteoporosis, Depression with anxiety, DDD, neurostimulator device in situ who presents to ED after sustaining a fall. Hx obtained from pt and outpt chart review. She was going into her sisters house and she has 2 concrete steps. She was trying to go up the steps when she lost footing and fell backwards.She reports hitting her head, back, Right elbow and R leg. She denies LOC or syncope. She reports significant pain to her R elbow, back and R hip. After she fell she instantly knew she broke something. She denies any f/c/s, chest pain, sob, n/v/d. Prior to todays events she denies any cardiopulmonary symptoms with exertion. She reports being able to do a flight of steps w/o chest pain or SOB. She was brought to the emergency room where x-rays of her right hip and right elbow revealed a displaced olecranon fracture in her elbow and a displaced angulated comminuted intertrochanteric femur fracture with subtrochanteric extension. Orthopedics was consulted for evaluation and management. Patient was seen and examined on the floor this morning. Her father recently and the is tomorrow. Her mother is actually in the hospital with a hip fracture as well. This is been obviously difficult for the family who are grieving. Patient denies any numbness or tingling in her right arm or right leg. No prior history of injuries to the right leg. She does have a history of a shoulder replacement on the right side done at [facility]. Allergies Allergy/AdvReac Type Severity Reaction Status Date / Time clarithromycin Allergy Intermediate Rash, Verified 06/10/23 14:04 diarrhea Sulfa (Sulfonamide Allergy Intermediate Rash Verified 06/10/23 14:04 Antibiotics) adhesive Allergy Unknown Tape- Verified 06/10/23 14:04 redness, paper tape/coban "ok" Penicillins Allergy Unknown Nose Verified 06/10/23 14:04 bleed, rash aspirin AdvReac Mild Nose bleed Verified 06/10/23 14:04 erythromycin base AdvReac Mild GI upset Verified 06/10/23 14:04 orlistat AdvReac Mild GI upset Verified 06/10/23 14:04 Home Medications Medication Instructions Recorded Confirmed Type acetaminophen 500 mg tablet 500 mg PO QID PRN Pain 12/05/17 03/04/24 History (Tylenol Extra Strength) levothyroxine 112 mcg capsule 112 mcg PO QAM 12/05/17 03/04/24 History metoclopramide HCl 10 mg tablet 10 mg PO TID 12/05/17 03/04/24 History (Reglan) ondansetron HCl 4 mg tablet 4 mg PO Q6H PRN Nausea 12/05/17 03/04/24 History (Zofran) sertraline 100 mg tablet (Zoloft) 150 mg PO QAM 12/05/17 03/04/24 History aspirin 81 mg tablet,delayed 81 mg PO QAM 03/31/23 03/04/24 History release (Adult Aspirin Regimen) cholecalciferol (vitamin D3) 25 25 mcg PO QAM 03/31/23 03/04/24 History mcg (1,000 unit) capsule tramadol 50 mg tablet 100 mg PO Q6H PRN Moderate Pain 03/31/23 03/04/24 History (Scale Score 5-6) amlodipine 5 mg tablet 5 mg PO QAM 05/01/23 03/04/24 History atorvastatin 80 mg tablet 80 mg PO QPM 05/01/23 03/04/24 History ezetimibe 10 mg tablet 10 mg PO QAM 05/01/23 03/04/24 History metoprolol succinate 25 mg 25 mg PO QAM 05/01/23 03/04/24 History tablet,extended release 24 hr pantoprazole 40 mg tablet,delayed 40 mg PO QAM 05/01/23 03/04/24 History release sucralfate 1 gram tablet 1 g PO BID 05/01/23 03/04/24 History topiramate 25 mg sprinkle capsule 50 mg PO HS 05/01/23 03/04/24 History baclofen 20 mg tablet 20 mg PO QID 06/03/23 03/04/24 History metformin 500 mg tablet 500 mg PO BID 06/03/23 03/04/24 History famotidine 20 mg tablet 40 mg PO HS 03/04/24 03/04/24 History gabapentin 600 mg tablet 1,200 mg PO TID 03/04/24 03/04/24 History Patient History Medical History CAD (coronary artery disease) 2020- 1 stent 2020- stents Follows with [facility] Osteoarthritis Urinary incontinence Anxiety Neuropathy Migraine Surgical History Family history of reaction to anesthesia Mother- slow to wake H/O shoulder replacement right History of esophagogastroduodenoscopy (EGD) History of appendectomy History of tooth extraction History of tonsillectomy and adenoidectomy H/O: hysterectomy S/P insertion of spinal cord stimulator 2014, [employer] Patient aware to bring bring remote DOS Fusion of lumbar spine Social History Smoking Status: Never smoker Second Hand Exposure: No; Do You Dip or Chew Tobacco: No; Hx Alcohol Use: No Hx Substance Use: No Preferred Language: Yemeni Communication Ability: Effective Visual Impairment: No Limitations Hearing Ability: Normal Linux Systems Analyst Required: No Beliefs That Will Affect Care: None marital status: Current Living Situation: Spouse current occupational status: disabled Feels Safe at Home: Yes Safety Concerns: Feels Safe At This Time Assistive Devices: Denture - Upper, Denture - Lower and Glasses Physical Exam Physical Exam: In general she is resting comfortably in bed in no acute distress. Alert and oriented x 3. Right upper extremity exam reveals a well-healed incision for a deltopectoral approach over her anterior right shoulder. She has a splint in place at her right elbow which is flexed to 90 degrees. Her exposed hand is warm and well- perfused. Slight swelling in the hand. 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 Sensory intact to light touch in the median ulnar and radial nerve distributions. Right lower extremity exam reveals the right leg to be shortened and externally rotated. The skin is intact over the lateral aspect of the right hip and thigh. Skin is warm and well-perfused distally. She is sensory intact to light touch over the dorsal and plantar aspects of the foot. Results & Data Vital Signs (Past 12 Hours) Vital Signs Temp Pulse Resp BP Pulse Ox O2 Del Method 03/05/24 07:20 36.6 C 66 16 104/68 92 Room Air 03/04/24 23:00 Room Air 03/04/24 22:52 36.7 C 64 18 124/74 97 Room Air 03/04/24 20:35 70 18 132/74 93 Room Air Diagnostic Findings X-rays done in the emergency room demonstrated displaced olecranon fracture of the right elbow and a displaced angulated comminuted intertrochanteric femur fracture with subtrochanteric extension.
[2024-03-05] MEDS: ASPIRIN 81 MG ECTAB PO SCH (07:48)
[2024-03-05] MEDS: EZETIMIBE 10 MG TAB PO SCH (07:48)
[2024-03-05] MEDS: amLODIPine BESYLATE 5 MG TAB PO SCH (07:49)
[2024-03-05] MEDS: CHOLECALCIFEROL 25 MCG (1000 UNITS) TAB PO SCH (07:49)
[2024-03-05] MEDS: PANTOprazole 40 MG TAB PO SCH (07:49)
[2024-03-05] MEDS: SERTRALINE HCL 50 MG TABLET PO SCH (07:50)
[2024-03-05] MEDS: METOPROLOL SUCC 25MG EXT REL TAB PO SCH (07:50)
--- NOTE | 2024-03-05 08:50 | Electrocardiogram Report ---
Test Reason : Blood Pressure : */* mmHG Vent. Rate : 68 BPM Atrial Rate : 68 BPM P-R Int : 158 ms QRS Dur : 78 ms QT Int : 420 ms P-R-T Axes : 10 -33 37 degrees QTcB Int : 446 ms Normal sinus rhythm Left axis deviation Low voltage QRS Possible Old Anterior infarct (cited on or before 09-Oct-2012) Abnormal ECG When compared with ECG of 22-Mar-2016 20:14, Nonspecific ST and T wave abnormality no longer present Confirmed by Dmitry Mello ([id number]) on 03/05/2024 8:50:20 AM Referred By: REFERRED SELF Confirmed By: Dmitry Mello
[2024-03-05] MEDS: ACETAMINOPHEN 325 MG TAB PO PRN (11:41)
[2024-03-05] MEDS: HYDROmorphone HCL 2 MG TAB PO PRN (11:41)
[2024-03-05] MEDS ORDERED: fentaNYL citrate PF 100 MCG/2 ML VIAL ONE ×2 (13:34→17:01)
[2024-03-05] MEDS ORDERED: DEXAMETHASONE SOD INJ 4 MG/ML VIAL ONE (13:34)
[2024-03-05] MEDS ORDERED: LIDOCAINE 2% 2 ML VIAL/AMP(20MG/ML) INFIL ONE (13:34)
[2024-03-05] MEDS ORDERED: PROPOFOL IV EMULSION 10 MG/ML 20 ML VIAL IV ONE (13:34)
[2024-03-05] MEDS ORDERED: ROCURONIUM BROMIDE 10 MG/ML 5 ML VIAL IV ONE (13:34)
[2024-03-05] MEDS ORDERED: ONDANSETRON INJ 2 MG/ML 2 ML VIAL ONE (13:34)
--- NOTE | 2024-03-05 14:06 | Anesthesiology Consultation ---
Date of Service March 05, 2024 Assessment & Plan (1) Encounter for pre-operative examination: Chart Review Chart Review: Acceptable Risk for Surgery History Surgery Operation Date: 03/05/24 11:05 Proposed Procedures p Trochanteric Nail Right - Chandu Perry MD s Right Open Reduction Internal Fixation Olecranon Fracture - Chandu Perry MD Height/Weight Height: 5 ft 4 in Weight: 84.4 kg Allergies Allergy/AdvReac Type Severity Reaction Status Date / Time clarithromycin Allergy Intermediate Rash, Verified 06/10/23 14:04 diarrhea Sulfa (Sulfonamide Allergy Intermediate Rash Verified 06/10/23 14:04 Antibiotics) adhesive Allergy Unknown Tape- Verified 06/10/23 14:04 redness, paper tape/coban "ok" Penicillins Allergy Unknown Nose Verified 06/10/23 14:04 bleed, rash aspirin AdvReac Mild Nose bleed Verified 06/10/23 14:04 erythromycin base AdvReac Mild GI upset Verified 06/10/23 14:04 orlistat AdvReac Mild GI upset Verified 06/10/23 14:04 Medications Home Medications Medication Instructions Recorded Confirmed Last Taken acetaminophen 500 mg tablet 500 mg PO QID PRN Pain 12/05/17 03/04/24 05/27/23 04:00 (Tylenol Extra Strength) levothyroxine 112 mcg capsule 112 mcg PO QAM 12/05/17 03/04/24 05/27/23 04:00 metoclopramide HCl 10 mg tablet 10 mg PO TID 12/05/17 03/04/24 05/27/23 04:00 (Reglan) ondansetron HCl 4 mg tablet 4 mg PO Q6H PRN Nausea 12/05/17 03/04/24 Unknown (Zofran) sertraline 100 mg tablet (Zoloft) 150 mg PO QAM 12/05/17 03/04/24 05/27/23 04:00 aspirin 81 mg tablet,delayed 81 mg PO QAM 03/31/23 03/04/24 05/27/23 04:00 release (Adult Aspirin Regimen) cholecalciferol (vitamin D3) 25 25 mcg PO QAM 03/31/23 03/04/24 05/26/23 08:00 mcg (1,000 unit) capsule tramadol 50 mg tablet 100 mg PO Q6H PRN Moderate Pain 03/31/23 03/04/24 05/26/23 21:00 (Scale Score 5-6) amlodipine 5 mg tablet 5 mg PO QAM 05/01/23 03/04/24 05/27/23 04:00 atorvastatin 80 mg tablet 80 mg PO QPM 05/01/23 03/04/24 05/26/23 13:00 ezetimibe 10 mg tablet 10 mg PO QAM 05/01/23 03/04/24 05/27/23 04:00 metoprolol succinate 25 mg 25 mg PO QAM 05/01/23 03/04/24 05/27/23 04:00 tablet,extended release 24 hr pantoprazole 40 mg tablet,delayed 40 mg PO QAM 05/01/23 03/04/24 05/27/23 04:00 release sucralfate 1 gram tablet 1 g PO BID 05/01/23 03/04/24 05/26/23 21:00 topiramate 25 mg sprinkle capsule 50 mg PO HS 05/01/23 03/04/24 05/26/23 21:00 baclofen 20 mg tablet 20 mg PO QID 06/03/23 03/04/24 Unknown metformin 500 mg tablet 500 mg PO BID 06/03/23 03/04/24 Unknown famotidine 20 mg tablet 40 mg PO HS 03/04/24 03/04/24 Unknown gabapentin 600 mg tablet 1,200 mg PO TID 03/04/24 03/04/24 Unknown Active Medications Generic Name Dose Route Start Last Admin Trade Name Freq PRN Reason Stop Dose Admin Acetaminophen 650 mg 03/04/24 21:26 03/05/24 11:41 Acetaminophen 325 Mg Tab PO 04/03/24 21:25 650 mg Q4H PRN Administration pain/fever Amlodipine Besylate 5 mg 03/05/24 09:00 03/05/24 07:49 Amlodipine Besylate 5 Mg Tab PO 04/04/24 08:59 5 mg QAM ANNEL Administration Aspirin 81 mg 03/05/24 09:00 03/05/24 07:48 Aspirin 81 Mg Ectab PO 04/04/24 08:59 81 mg QAM ANNEL Administration Atorvastatin Calcium 80 mg 03/04/24 21:26 03/04/24 22:35 Atorvastatin 40 Mg Tab PO 04/03/24 21:25 80 mg QPM ANNEL Administration Baclofen 20 mg 03/04/24 21:26 03/05/24 07:51 Baclofen 20 Mg Tab PO 04/03/24 21:25 20 mg QID ANNEL Administration Ezetimibe 10 mg 03/05/24 09:00 03/05/24 07:48 Ezetimibe 10 Mg Tab PO 04/04/24 08:59 10 mg QAM ANNEL Administration Famotidine 40 mg 03/04/24 21:26 03/04/24 22:35 Famotidine 40 Mg Tablet PO 04/03/24 21:25 40 mg HS ANNEL Administration Gabapentin 1,200 mg 03/04/24 21:26 03/05/24 07:49 Gabapentin 600 Mg Tab PO 04/03/24 21:25 1,200 mg TID ANNEL Administration Hydromorphone HCl 1 mg 03/05/24 01:34 03/05/24 10:28 Hydromorphone Inj 1 Mg/Ml Syringe IV 03/19/24 01:33 1 mg Q4H PRN Administration Pain Hydromorphone HCl 2 mg 03/05/24 11:36 03/05/24 11:41 Hydromorphone Hcl 2 Mg Tab PO 03/19/24 11:35 2 mg Q8H PRN Administration Severe Pain (Scale 7, 8, 9,10) Levothyroxine Sodium 112 mcg 03/05/24 06:30 03/05/24 05:07 Levothyroxine Sodium 112 Mcg Tablet PO 04/04/24 06:29 112 mcg DAILYBB ANNEL Administration Melatonin 6 mg 03/04/24 21:26 03/04/24 22:31 Melatonin 3 Mg Tab PO 04/03/24 21:25 6 mg HS PRN Administration Sleep Metoclopramide HCl 10 mg 03/04/24 21:26 03/05/24 07:51 Metoclopramide Hcl 10 Mg Tablet PO 04/03/24 21:25 10 mg TID ANNEL Administration Metoprolol Succinate 25 mg 03/05/24 09:00 03/05/24 07:50 Metoprolol Succ 25mg Ext Rel Tab PO 04/04/24 08:59 25 mg QAM ANNEL Administration Ondansetron HCl 4 mg 03/04/24 21:26 03/04/24 21:37 Ondansetron Inj 2 Mg/Ml 2 Ml Vial IV 04/03/24 21:25 4 mg Q6H PRN Administration Nausea Oxycodone HCl 5 - 10 mg 03/05/24 01:33 03/05/24 07:53 Oxycodone Hcl Ir 5 Mg Tab (Immediate Release) PO 03/19/24 01:32 10 mg QID PRN Administration Pain Pantoprazole Sodium 40 mg 03/05/24 09:00 03/05/24 07:49 Pantoprazole 40 Mg Tab PO 04/04/24 08:59 40 mg QAM ANNEL Administration Polyethylene Glycol 17 gm 03/04/24 21:26 03/05/24 07:53 Polyethylene (Miralax) 17 Gm Pack PO 04/03/24 21:25 17 gm BID ANNEL Administration Senna/Docusate Sodium 2 tab 03/04/24 21:26 03/04/24 22:36 Docusate Sodium/Senna 50/8.6mg Tab PO 04/03/24 21:25 2 tab HS ANNEL Administration Sertraline HCl 150 mg 03/05/24 09:00 03/05/24 07:50 Sertraline Hcl 50 Mg Tablet PO 04/04/24 08:59 150 mg QAM ANNEL Administration Sucralfate 1 gm 03/04/24 21:26 03/05/24 07:48 Sucralfate 1 Gm Tab PO 04/03/24 21:25 1 gm BID ANNEL Administration Topiramate 50 mg 03/04/24 21:45 03/04/24 22:34 Topiramate 50 Mg Tab PO 04/03/24 21:44 50 mg HS ANNEL Administration Vitamin D 25 mcg 03/05/24 09:00 03/05/24 07:49 Cholecalciferol 25 Mcg (1000 Units) Tab PO 04/04/24 08:59 25 mcg QAM ANNEL Administration NPO Date Last Intake of Fluids: 03/05/24 Time Last Intake of Fluids: 00:00 Date Last Intake of Solids: 03/05/24 Time Last Intake of Solids: 00:00 Past Medical History Medical History (Updated 03/05/24 @ 14:03 by Clifton Peres MD) Hx of myocardial infarction 2019 CAD (coronary artery disease) 2020- 1 stent 2020- 2 stents Follows with [facility] Osteoarthritis Urinary incontinence Anxiety Neuropathy Migraine Past Surgical History Surgical History Family history of reaction to anesthesia Mother- slow to wake H/O shoulder replacement right History of esophagogastroduodenoscopy (EGD) History of appendectomy History of tooth extraction History of tonsillectomy and adenoidectomy H/O: hysterectomy S/P insertion of spinal cord stimulator 2014, [employer] Patient aware to bring bring remote DOS Fusion of lumbar spine Social History Smoking Status: Never smoker Do You Dip or Chew Tobacco: No Hx Alcohol Use: No Hx Substance Use: No substance use type: does not use Physical Exam Vital Signs Last Vital Signs Temp 36.9 C 03/05/24 12:50 Pulse 74 03/05/24 12:50 Resp 20 03/05/24 12:50 BP 119/60 03/05/24 12:50 Pulse Ox 91 03/05/24 12:50 O2 Del Method Room Air 03/05/24 12:50 Testing Laboratory Results 03/05/24 06:43 03/05/24 06:43 PT 10.9 Seconds (9.0-12.0) 03/04/24 18:05 INR 1.0 (0.9-1.1) 03/04/24 18:05 APTT 24 Seconds (21-31) 03/04/24 18:05 Blood Type A Positive 03/04/24 21:34 Antibody Screen NEGATIVE 03/04/24 21:34 Electrocardiogram Date: 03/04/24 Findings: + NSR @ (68) old anterior infarct Echocardiogram Date: 03/30/21 EF: 60-65% LV Function: normal Valvular Disease: + no significant valvular disease Stress Test Date: 01/11/22 No ischemia
[2024-03-05] MEDS ORDERED: ONDANSETRON INJ 2 MG/ML 2 ML VIAL IV PRN (14:14)
[2024-03-05] MEDS ORDERED: KETOROLAC 30 MG/ML VIAL IV PRN (14:14)
[2024-03-05] MEDS ORDERED: HYDROmorphone INJ 1 MG/ML SYRINGE IV PRN (14:14)
[2024-03-05] MEDS ORDERED: PROMETHAZINE HCL 6.25 MG in SODIUM CHLORIDE 0.9% 50 ML IV PRN (14:14)
[2024-03-05] MEDS ORDERED: ATROPINE SULFATE 0.1 MG/ML 10ML SYR IV PRN (14:14)
--- NOTE | 2024-03-05 14:27 | Hospitalist Progress Note ---
Date of Service March 05, 2024 Assessment & Plan (1) Fall: (2) Pathological fracture of right hip due to age-related osteoporosis: (3) Fracture of right olecranon process: (4) CAD (coronary artery disease): Plan 63 yr old F who has a significant PMH of CAD with hx of coronary stent, HTN, HLD, hx of atrial flutter, Pre DM, Hypothyroidism, Gastroparesis, chronic superficial gastritis, Gerd, Osteoporosis, Depression with anxiety, DDD, neurostimulator device in situ who presents to ED after sustaining a fall. Mechanical Fall Pathologic fx of R hip due to age related osteoporosis Fracture of R olecranon process Right elbow x-ray with avulsion fracture of olecranon process. Hip x-ray with right comminuted intertrochanteric fracture with displacement. Continue with pain management, bowel regimen. Patient is n.p.o. for orthopedic surgery today for hip repair. Orthopedics on board, appreciate recommendation. Continue ASA and metoprolol. Resume diet after Sx. CA, hx of LIZBETH x 3 HTN HLD follows [facility] Cards on asa, statin, metoprolol, amlodipine, statin no CP or SOB, admitting ecg reviewed w/o ischemic change Chronic Back pain/hx of lumbar surgery/neurostimulator device insitu: chronic pain management Pre DM: a1c 6.0, hold metformin, no indication for ISS at this time Hypothyroidism: continue levothyroxine Gastroparesis/Chronic superficial gastritis: continue PPI, sucralfate, reglan DVT ppx: SCDS for now, recommend chemical prophylaxis when ok with orthopedics FULL CODE PCP: Dr. Keagan Sanchez Dispo: admit to medical Admission and Anticipated Discharge Date Admission Date: March 04, 2024 Subjective Patient was seen and examined at bedside. Patient was lying in bed, on room air, reports pain at fracture site. Patient is n.p.o. for surgery later today. Patient denies any recent febrile illness or shortness of breath or chest pain or flulike illness. Physical Exam Physical Exam: General Appearance: Obese, mild distress secondary to pain Head: normocephalic, Atraumatic Eyes: normal inspection, EOMI Neck: supple, Trachea midline Respiratory/Chest: Normal breath sounds, CTA, No accessory muscle use Cardiovascular: S1, S2, No murmur Abdomen/GI:Soft, Non tender, Bowel sounds present Extremities/Musculoskeletal:normal inspection, Trace, edema, right hip decreased ROM due to pain, tender, swelling, right elbow in cast, swelling, tender Neurologic/Psych:AAOX3, grossly no focal neurological deficits Skin: normal color, warm Results & Data Results & Data Vital Signs (Past 12 Hours) Vital Signs Temp Pulse Resp BP Pulse Ox O2 Del Method 03/05/24 12:50 36.9 C 74 20 119/60 91 Room Air 03/05/24 07:20 36.6 C 66 16 104/68 92 Room Air
[2024-03-05] MEDS: ceFAZolin 2000MG 2,000 MG/15 ML SYR IV SCH (14:55)
[2024-03-05] MEDS ORDERED: TRANEXAMIC ACID / 0.7% NACL 1000MG/100ML BAG IV ONE (15:25)
[2024-03-05] MEDS: BUPIVACAINE 0.5 % 5 MG/1 ML MPF 30ML VIAL ONE (16:31)
[2024-03-05] MEDS: BUPIVACAINE/EPINEPHRINE 0.5% MPF 1:200,000 30 ML VIAL ONE (16:32)
[2024-03-05] MEDS ORDERED: NEOSTIGMINE METHYLSULFATE 1 MG/ML 10ML VIAL ONE ×2 (17:14)
[2024-03-05] MEDS ORDERED: diphenhydrAMINE 50 MG/ML VIAL ONE (17:23)
--- NOTE | 2024-03-05 18:41 | Operative Report ---
Post Operative Report Pre & Post Diagnosis Operation Date: 03/05/24 11:05 Pre-Op Diagnosis: Right hip fracture Right elbow fracture Post-Op Diagnosis: Right hip fracture Right elbow fracture I identified the patient and participated in the time-out.: Yes Procedure Operation Date: 03/05/24 11:05 Actual Procedures p Intermedullary Shaun for Trochanteric Fracture- Right(Right) - Chandu Perry MD s Right Excision Comminuted Olecranon Fracture, Triceps Tendon Advancement(Right) - Chandu Perry MD Surgeon Chandu Perry MD. Bottom Cager Raven Maria PA-C Estimated Blood Loss 75 Findings Consistent with Post-Op Diagnosis Specimens none Anesthesia Type General Regional Description of Procedure Patient was taken to the operating room, placed under general anesthesia. Time out performed, prepped and draped in routine sterile fashion. She was given 2 gm IV ancef for surgical prophylaxis. She was given 1 gm IV TXA preoperatively. I was present during the entire case, please see Dr. Perry's operative report for further details regarding today's procedure. Patient was awakened and taken to the recovery room in stable condition. I attest to the content of the Intraoperative Record and any orders documented therein. Any exceptions are noted below.
--- NOTE | 2024-03-05 18:55 | Operative Report ---
Post Operative Report Pre & Post Diagnosis Operation Date: 03/05/24 11:05 Pre-Op Diagnosis: Displaced, comminuted right intertrochanteric femur fracture with subtrochanteric extension Displaced, comminuted right olecranon fracture Post-Op Diagnosis: Displaced, comminuted right intertrochanteric femur fracture with subtrochanteric extension Displaced, comminuted right olecranon fracture I identified the patient and participated in the time-out.: Yes Procedure Operation Date: 03/05/24 11:05 Actual Procedures Intramedullary Shaun for displaced, comminuted right intertrochanteric femur fracture with subtrochanteric extension Excision of displaced, comminuted right olecranon fracture, Triceps Tendon Advancement(Right) Surgeon Chandu Perry MD Regulator Assembler Raven Maria PA-C. No resident or fellow was available to assist. Estimated Blood Loss 75 Findings Consistent with Post-Op Diagnosis Specimens None Anesthesia Type General Complications none Disposition Disposition: Recovery Room Indications 63-year-old female, fell backwards walking up steps yesterday landing onto her right side of her body. She had immediate onset of pain in her right elbow and her right hip. She was brought to the emergency room where x-rays were obtained. These demonstrated displaced comminuted right intertrochanteric femur fracture with subtrochanteric extension, and a displaced comminuted right olecranon fracture. She was admitted to the internal medicine service. She was kept n.p.o. after midnight last night. I saw this morning. I discussed the severe nature of these injuries as well as the complicating factor of having multitrauma on the same side of the body. Surgery is the recommended treatment to allow her to mobilize and regain the ability to walk and use her right arm. After reviewing the risks and benefits of surgery, alternatives, and expected outcomes she elected to proceed. All questions were answered. Informed consent was signed. Description of Procedure Patient was identified on the floor where her surgical sites were marked. She is brought down to the operating room where general anesthesia was administered on the hospital bed. She was then carefully transferred onto the fracture table, as we began by fixing her right intertrochanteric femur fracture. The nonoperative left hip was flexed and AB ducted to facilitate fluoroscopic imaging. The right foot was padded then placed into the traction boot. She was positioned against the perineal post. Fluoroscopy was brought in between the legs. Using a combination of traction and internal rotation of the leg I was able to achieve a near anatomic reduction of the intertrochanteric femur fracture. Surgical site was then prepped and draped in the usual sterile fashion. Prior to incision a multidisciplinary timeout was called. All in the room were in agreement. I began by making a 6 cm incision approximately 4 cm above the tip of the greater trochanter. I dissected down to subcutaneous tissues to level the fascia. The guidewire was inserted through the fascia and was optimally positioned on the tip of the greater trochanter under the AP fluoroscopic view. This was then driven down into the femur. Lateral fluoroscopy was checked. I placed a new wire just anterior to this to get a better starting point. Once her starting point was optimized I then incised the fascia on each side of the wire and placed the opening reamer directly down on the tip of the greater trochanter. Opening reamer was then drilled. A ball-tipped guidewire was then placed down the femur all the way to the level of the superior pole of the patella. We took our measurement which was 375 mm. I elected to use a 360 mm nail. We then sequentially reamed out the intramedullary canal with reamers. This was done to just past the isthmus in order to facilitate passage of an 11 mm diameter nail. The nail was opened up on the back table. The nail was then inserted over the top of the guidewire and tapped down under fluoroscopic guidance so that the helical blade would end up in the appropriate position in the femoral head. Once this was complete a small stab incision was made over the lateral aspect of the femur through the outrigger arm. The guide sleeve was placed down onto the bone. A guidewire was then drilled up into the center center position of the femoral head. This measured 97 mm. I elected to use a 90 mm length helical blade. The drill to open the cortex was used followed by the stepped reamer which was set at 95 mm. I then tapped the helical blade up into the femoral head. We slightly compressed the fracture but not a lot was required since we had a near anatomic reduction. I then advanced the setscrew from the top of the nail to statically locked the helical blade. Next, we turned our attention towards the distal cross locking screws. Traction was released off the leg and the leg was AB ducted to facilitate fluoroscopic imaging. Perfect circles technique was used to place to cross locking screws in the distal femur. 1 was placed through the dynamic hole and one was placed through the more proximal static hole. Once this was completed final fluoroscopic images were obtained. I was happy with the reduction of the fracture, position of the hardware, and all of our screw lengths. These images were saved to the system. Wounds were irrigated with copious amounts normal saline. The wound was closed in layers with 0 Vicryl for the fascia and deep subcutaneous layer, 2-0 Vicryl for the deep dermis, and brittanie for the skin. 30 cc of half percent Marcaine was injected in the incisions for postoperative pain control. Sterile dressings were applied. The drapes were completely taken down and the nonoperative leg was placed back down onto the fracture table so she was in the anatomic position with a pillow placed underneath the knees. The operative table was then rotated and we applied a hand table adjacent to the right arm. A nonsterile tourniquet was placed over the right upper arm. The right upper extremity then was prepped and draped in the usual sterile fashion. The right upper extremity was exsanguinated with an Esmarch bandage. Tourniquet was inflated to 250 mmHg. A 10 cm long incision was made centered over the olecranon fracture. She had a previous incision for a ulnar nerve surgery. I treated the incision a little bit more lateral so we had at least a 4 cm skin bridge between the 2 incisions. I dissected down to subcutaneous tissues to the level of the fascia. Significant amount of hematoma was encountered. This was evacuated with irrigation, suction, and a curette. The olecranon fracture was easily visible. This was inspected and was noted to be comminuted into approximately 5 pieces all of which were small. These pieces were unlikely to hold any plate and screw fixation, therefore the decision was made to excise the comminuted fragments and perform a triceps tendon advancement. 15. Blade was used to sharply excise the fragments. Suture tape was then run up and down the tendon x 2 giving us 4 tails of sutures and 2 pairs on each of the medial and lateral aspects of the triceps tendon. A drill was then used to make transosseous tunnels through the fractured end of the proximal ulna. A Hewson suture passer was used to pass the suture tapes through the tunnels. th e elbow was brought in full extension and the sutures were tied down over the bone bridge on the dorsal ulna. Excellent fixation was obtained. At this point 0 Vicryl sutures were used in interrupted fashion to close the remaining fascia over the top of the triceps tendon repair. The fascial split over the dorsal aspect of the ulna at the site of the suture tapes was also repaired. The wound was again irrigated out with copious amounts normal saline. We then tested our repair. I could easily flex her elbow to 90 degrees without any undue gapping at the triceps tendon repair site which I was very happy with. This point the deep dermal layer was closed with interrupted 2-0 Vicryl sutures. 30 cc of quarter percent Marcaine was injected in the subcutaneous tissues for postoperative pain control. The skin was closed with brittanie. The elbow was brought into full extension and a long-arm plaster cast was applied holding the elbow in full extension. Once this was dry the patient was awoke from anesthesia, transferred recovery room in stable condition. Postoperative course: Patient will be readmitted to the internal medicine service. She will be weightbearing as tolerated on the right lower extremity Using a walker and max assist. For her right upper extremity she can partially weight-bear through the right arm with a cast in place. Recommend she begin Lovenox tomorrow for DVT prophylaxis. We will plan on removing her cast 1 week from now and placing her into a hinged elbow brace locked in full extension while ambulating and with range of motion allowed from 0 to 90 degrees. After 6 weeks she will be allowed to flex past 90 degrees to progress towards full elbow flexion. I attest to the content of the Intraoperative Record and any orders documented therein. Any exceptions are noted below.
--- NOTE | 2024-03-05 20:13 | Anesthesiology Progress Note ---
Date of Service March 05, 2024 Anesthesia Post Procedure Vital Signs Vital Signs: Temp Pulse Pulse Resp BP BP Pulse Ox 03/05/24 19:50 97.5 F L 78 16 122/76 91 03/05/24 19:20 98.1 F 80 16 149/77 H 93 03/05/24 19:05 98.1 F 80 16 146/66 H 98 03/05/24 18:55 79 18 152/72 H 99 03/05/24 18:45 79 16 141/67 H 100 03/05/24 18:38 97.2 F L 77 18 143/75 H 99 03/05/24 12:50 98.4 F 74 20 119/60 91 03/05/24 07:20 97.9 F 66 16 104/68 92 03/04/24 23:00 03/04/24 22:52 98.1 F 64 18 124/74 97 03/04/24 20:35 70 18 132/74 93 O2 Del Method O2 Flow Rate 03/05/24 19:50 Room Air 03/05/24 19:20 Room Air 03/05/24 19:05 Nasal Cannula 2 03/05/24 18:55 Oxymask 4 03/05/24 18:45 Oxymask 4 03/05/24 18:38 Oxymask 6 03/05/24 12:50 Room Air 03/05/24 07:20 Room Air 03/04/24 23:00 Room Air 03/04/24 22:52 Room Air 03/04/24 20:35 Room Air Pain Intensity Right Hip: Pain Intensity: 10 Transfer of Care Handoff Completed per policy Notes Mental Status: alert / awake / arousable and participated in evaluation Patient Amnestic to Procedure: Yes Nausea / Vomiting: adequately controlled Pain: adequately controlled Airway Patency, RR, SpO2: stable & adequate BP & HR: stable & adequate Hydration State: stable & adequate Anesthetic Complications: no major complications apparent and Pt Satisfied with anesthetic care
[2024-03-05] MEDS: BUPIVACAINE 0.25% PF 30 ML VIAL ONE (21:18)
[2024-03-06] MEDS: TRANEXAMIC ACID / 0.7% NACL 1,000 MG/100 ML BAG IV SCH (00:58)
[2024-03-06] MEDS: ceFAZolin 2000MG 2,000 MG/15 ML SYR IV SCH (00:58)
[2024-03-06 07:07] LABS: Basophils # (auto) 0.02 K/uL (0.00-0.20); Basophils % (auto) 0.3 %; Eosinophils # (auto) 0.01 K/uL (0.00-0.50); Eosinophils % (auto) 0.1 %; Hematocrit (blood only) 28.2 % (37.0-47.0); Hemoglobin 9.1 g/dl (12.0-16.0); Immature Granulocytes # (auto) 0.02 K/uL (0.01-0.20); Immature Granulocytes % (auto) 0.3 %; Lymphocytes # (auto) 1.57 K/uL (1.20-3.40); Mean Corpuscular Hemoglobin 28.3 pg (25.0-34.0); Mean Corpuscular Hgb Conc 32.3 g/dL (32.0-36.0); Mean Corpuscular Volume 87.9 fL (80.0-100.0); Mean Platelet Volume 9.9 fL (9.4-12.4); Monocytes # (auto) 0.86 K/uL (0.11-0.59); Monocytes % (auto) 10.9 %; Neutrophils # (auto) 5.38 K/uL (1.40-6.50); Neutrophils % (auto) 68.4 %; Platelet Count 173 K/uL (130-400); RDW Coefficient of Variation 14.3 % (11.5-14.5); RDW Standard Deviation 46.7 fL (36.4-46.3); Red Blood Count 3.21 M/uL (4.20-5.40); White Blood Count 7.86 K/ul (4.8-10.8)
[2024-03-06 07:26] LABS: BUN Creatinine Ratio 20.6 (10-20); Calcium 8.4 mg/dl (8.6-10.3); Creatinine Clr Calc Pharmacy 90.2 ml/min; Magnesium 2.2 mg/dl (1.7-2.4); Phosphorus 4.7 mg/dl (2.5-4.9); Potassium 4.7 mmol/L (3.5-5.1)
--- NOTE | 2024-03-06 07:40 | Fluoroscopy Report ---
FL hip RT 2-3V CLINICAL HISTORY: RT TROCH NAIL COMPARISON STUDY: Pelvis and right hip radiographs March 04, 2024. FLUOROSCOPY TIME: 2 minutes and 54 seconds. Ka,r: 34.80 mGy FLUOROSCOPIC IMAGES: 5 FINDINGS: Fluoroscopy was provided during open reduction and internal fixation of the intertrochanter ic fracture of the right femur. Fracture alignment has significantly improved. There are no unexpecte d radiopaque foreign bodies. IMPRESSION: Fluoroscopy provided during open reduction and internal fixation of the intertrochanteri c fracture of the right femur. ACT 112: Negative or not required by law. Electronically signed by: Jamey Last M.D. 03/06/2024 7:39 AM
[2024-03-06] MEDS: ENOXAPARIN INJ 30 MG/0.3 ML SYR SQ SCH (07:42)
--- NOTE | 2024-03-06 07:42 | Fluoroscopy Report ---
FL elbow RT 2V CLINICAL HISTORY: ORIF RT ELBOW COMPARISON STUDY: Right elbow radiographs March 04, 2024. FLUOROSCOPY TIME: 5 seconds. Ka,r: 0.34 mGy FLUOROSCOPIC IMAGES: 2 FINDINGS: Fluoroscopy was provided during excision of the displaced right olecranon fracture with tri ceps tendon enhancement. There are no unexpected radiopaque foreign bodies. IMPRESSION: Fluoroscopy provided during fixation of the displaced right olecranon fracture with tric eps tendon enhancement. ACT 112: Negative or not required by law. Electronically signed by: Jmaey Last M.D. 03/06/2024 7:41 AM
--- OUTSIDE RECORDS SUMMARY | 2024-03-06 12:26 | External Medical Summary | Summary of Care ---
Author Name Unknown Organization [facility] Address [address] [place] [address] Phone [phone] Care Team Providers Care Distribution Analyst Name Role Phone Keagan Sanchez MD Primary Care Provider [phone] Reason for Visit * Reason Onset Date Comments Medication Refill 02/02/2024 Encounter Details Date Type Department Care Team ([facility] st Contact Info) Description 02/02/[address] [phone] Keagan Sanchez MD [address] [place] [id number] DDD (degenerative disc disease), cervical; Postlaminectomy syndrome, lumbar Allergies Active Allergy Reactions Criticality Noted Date Comments Adhesive Tape 03/31/2023 Other Reaction(s): Tape- redness, paper tape/coban "ok", SLEY-[id number] TAPE OK OR COBAN Clarithromycin High 03/31/2023 Other Reaction(s): Rash, diarrhea, RASH,DIARRHEA Duloxetine Hcl Flushing,Nausea/vomi tin g High 10/20/2019 Erythromycin Base Rash 03/14/2004 Orlistat Low 03/31/2023 Other Reaction(s): GI UPSET Penicillins Rash 03/14/2004 Prednisone Other (Please comment) High 10/10/2023 pancreatitis Sulfa Antibiotics Rash 03/14/2004 documented as of this encounter (statuses as of 02/04/2024) Medications Cholecalciferol (VITAMIN D) 1000 UNIT Capsule Take 1 Cap by mouth daily. 30 Cap 11 5 Active Aspirin 81 MG Oral Tablet Chewable Take 1 Tab by mouth daily. 30 Tab 11 0 Active Atorvastatin Calcium 80 MG Oral Tablet (Lipitor) TAKE ONE TABLET BY MOUTH EVERY EVENING 90 Tablet 3 11/29/2023 10:00 AM EDT 3 03/14/20 24 Active Nitroglycerin 0.4 MG Sublingual Tablet Sublingual (Nitrostat) Place 1 Tablet under the tongue every 5 minutes as needed for Pain, Chest. 25 Tablet 1 4 Active Additional Information Patient not taking.Reported on 12/22/2023 amLODIPine Besylate 5 MG Oral Tablet (Norvasc) TAKE ONE TABLET BY MOUTH IN THE MORNING 90 Tablet 3 11/17/2023 3:25 PM EDT 4 05/26/19 25 Active Levalbuterol HCl 1.25 MG/3ML Inhalation Nebulization Solution (Xopenex)Indicat ions:Acute cough,Shortness of breath,Bronchiti s Inhale 1 Ampule via nebulizer every 4 hours as needed for Wheezing. 72 mL 12 4 Active Additional Information Patient not taking.Reported on 01/08/2024 Metoprolol Succinate ER 25 MG Oral Tablet Extended Release 24 Hour (toPROL XL)Indications:A trial flutter, unspecified type (HCC) TAKE ONE TABLET BY MOUTH IN THE MORNING. 90 Tablet 3 11/26/2023 8:37 AM EDT 4 08/28/19 25 Active Levalbuterol Tartrate 45 MCG/ACT Inhalation Aerosol (Xopenex HFA)Indications: Shortness of breath,Bronchiti s, complicated Inhale 2 Puffs by mouth every 4 hours as needed for Wheezing. 15 g 12 4 Active Additional Information Patient not taking.Reported on 01/08/2024 hydrOXYzine HCl 50 MG Oral Tablet Take 1 Tablet by mouth 3 times a day as needed for Anxiety (hyperventilati on). 30 Tablet 4 Active Sertraline HCl 100 MG Oral Tablet (Zoloft) 4 Active metFORMIN HCl 500 MG Oral Tablet (Glucophage) Take 1 Tablet by mouth 2 times a day with morning and evening meals. 60 Tablet 4 4 Active Ezetimibe 10 MG Oral Tablet (Zetia)Indicatio ns:Coronary artery disease involving seneca-cayuga coronary artery of seneca-cayuga heart with unstable angina pectoris (HCC) TAKE ONE TABLET BY MOUTH EVERY MORNING 90 Tablet 3 01/23/2024 9:15 AM EDT 4 11/07/19 25 Active Levothyroxine Sodium 112 MCG Oral Tablet (Levoxyl) TAKE 1 TABLET BY MOUTH DAILY AT LEAST 30 MINUTES PRIOR TO FIRST MEAL OF THE DAY OR OTHER MEDICATIONS 90 Tablet 1 11/21/2023 3:18 PM EDT 4 11/21/19 25 Active Topiramate 25 MG Oral Tablet (topAMAX) Take 2 tablets by mouth nightly 180 Tablet 2 4 Active Amitriptyline HCl 50 MG Oral Tablet (Elavil) Take 1 Tablet by mouth at bedtime. Active Acetaminophen 500 MG Oral Tablet (Tylenol Extra Strength) Take 1 Tablet by mouth every 6 hours as needed. Active Ondansetron ODT 2 MG ON TONGUE TBDP Place 0.5 Tablets on tongue every 8 hours as needed for Nausea. dissolve on tongue. Active tiZANidine HCl 4 MG Oral Tablet (Zanaflex) Take 1 Tablet by mouth in the morning and 1 Tablet at noon and 1 Tablet before bedtime. 90 Tablet 2 4 Active Additional Information Patient not taking.Reported on 12/29/2023 Diclofenac Sodium 50 MG Oral Tablet Delayed Release (Voltaren) Take 1 Tablet by mouth in the morning and 1 Tablet before bedtime. 60 Tablet 2 4 Active Metoclopramide HCl 10 MG Oral Tablet (Reglan) Take 1 Tablet by mouth 3 times a day. 270 Tablet 01/06/2024 11:55 AM EDT 4 Active traMADol HCl 50 MG Oral Tablet (Ultram) Take 1 Tablet by mouth every 6 hours as needed for Pain, Moderate. 15 Tablet 4 Active Baclofen 20 MG Oral Tablet Take 1 Tablet by mouth 4 times a day. 360 Tablet 01/06/2024 11:55 AM EDT 4 Active Sucralfate 1 GM Oral Tablet (Carafate)Indica tions:Left lower quadrant pain,Chronic constipation,Gas troparesis,Gastr oesophageal reflux disease without esophagitis,Christal lcoholic fatty liver disease,Abnormal LFTs,Drug-induce d acute pancreatitis without infection or necrosis,Abdomin al pain, epigastric,Chron ic superficial gastritis without bleeding Take 1 Tablet by mouth in the morning and 1 Tablet at noon and 1 Tablet before bedtime. 180 Tablet 3 01/08/2024 4:35 PM EDT 4 Active Pantoprazole Sodium 40 MG Oral Tablet Delayed Release (Protonix)Indica tions:Left lower quadrant pain,Chronic constipation,Gas troparesis,Gastr oesophageal reflux disease without esophagitis,Christal lcoholic fatty liver disease,Abnormal LFTs,Drug-induce d acute pancreatitis without infection or necrosis,Abdomin al pain, epigastric,Chron ic superficial gastritis without bleeding Take 1 tablet by mouth twice per day for 14 days then reduce to 1 tablet daily 90 Tablet 3 02/02/2024 3:35 PM EST 4 Active Famotidine 20 MG Oral Tablet (Pepcid)Indicati ons:Left lower quadrant pain,Chronic constipation,Gas troparesis,Gastr oesophageal reflux disease without esophagitis,Christal lcoholic fatty liver disease,Abnormal LFTs,Drug-induce d acute pancreatitis without infection or necrosis,Abdomin al pain, epigastric,Chron ic superficial gastritis without bleeding Take 2 tablets by mouth at bedtime. 60 Tablet 11 01/29/2024 9:12 AM EST 4 Active traMADol HCl 50 MG Oral Tablet (Ultram)Indicati ons:Postlaminect stefany syndrome, lumbar Take 2 Tablets by mouth every 6 hours as needed for Pain, Moderate. 240 Tablet 4 Active documented as of this encounter (statuses as of 02/04/2024) Active Problems Problem Noted Date Diagnosed Date Atrial flutter 12/09/2023 Assessment & Plan (12/09/2023 10:51 AM EDT): Metoprolol 25mg daily Drug-induced acute pancreati tis without infection or necrosis 08/24/2023 Assessment & Plan (12/09/2023 10:52 AM EDT): Reglan 10mg daily TID Anxiety and depression 08/24/2023 Assessment & Plan (12/09/2023 10:56 AM EDT): Sertraline 100mg daily Hydroxyzine 50mg TID prn anxiety Coronary artery disease due to lipid rich plaque 08/24/2023 Neurostimulator device in situ 06/30/2023 Essential (primary) hypertension 06/16/2023 Hypothyroidism 06/16/2023 Assessment & Plan (12/09/2023 10:53 AM EDT): Levothyroxine 112mcg daily Prediabetes 03/03/2023 Overview: Per Prediabetes protocol Assessment & Plan (12/09/2023 11:04 AM EDT): Metformin 500mg BID Checks BSG twice per week. Never experiences lows Urinary retention 10/29/2022 Abdominal pain 10/28/2022 Diverticulitis 10/28/2022 Assessment & Plan (12/09/2023 10:57 AM EDT): Has upcoming GI appt Hypokalemia 10/28/2022 S/P reverse total shoulder arthroplasty, right 0 07/16/2022 Age-related osteoporosis wit hout current pathological fracture 03/05/2022 Assessment & Plan (12/09/2023 10:55 AM EDT): Cholecalciferol 1000mg daily Personal history of fall 06/11/2021 Assessment & Plan (06/11/2021 2:50 PM EDT): 60-year-old female who had fallen last week in her home (legs just gave out and was not using her walker at that time, fell on right side.). PCPs office ordered a C-spine thoracic spine and right shoulder imaging. These were all done on the 06 of June. Imaging demonstrated no acute findings. Patient's history is significant for multiple back surgeries and a nerve stimulator. Her PCP ordered an MRI of her lower back and she is scheduled on the of this month for that imaging and then an appointment with her neurosurgeon on the of this month. Patient was question whether not she needed an MRI of the thoracic spine. At this time I see no indication for an MRI of the thoracic spine. Plan: Recommend that the patient get the MRI that is scheduled of her lower lumbar area and follow-up with her neurosurgeon. She can continue to take her medicines of baclofen tramadol gabapentin and extra-strength Tylenol which she should review with her neurosurgeon. Recommend that she uses her walker when walking at all times to help try prevent future falls History of 2019 novel coronavirus disease (COVID -19) 05/01/2021 Other specified hypothyroidism 04/12/2021 Coronary artery disease invo lving seneca-cayuga coronary artery of seneca-cayuga heart without angina pectoris 09/27/2020 Assessment & Plan (12/09/2023 10:51 AM EDT): Has 3 stents (2 in LAD one in diagonal), placed at [facility] [address] Womack Followed by [facility] cardiology, Angela Littlejohn, next appt May 2024 Has current NTG On Metoprolol 25mg daily, Lipitor 80mg daily and ASA 81mg S/P angioplasty with stent 09/27/2020 Status post insertion of chari alvarenga-eluting stent into left anterior descending (LAD) artery 02/26/2020 Gastro-esophageal reflux disease without esophag itis 10/04/2019 Assessment & Plan (12/09/2023 10:54 AM EDT): Protonix 40mg daily Pepcid 20mg daily Carafate 1gm BID Mixed hyperlipidemia 10/04/2019 Major depressive disorder, single episode, unspe cified 10/04/2019 Lumbar radiculopathy 04/23/2019 Spinal stenosis of lumbar region 04/23/2019 MEDICATION USE AGREEMENT 03/01/2019 Chronic superficial gastritis without bleeding 0 06/06/2018 Hypotonic bladder 01/18/2014 Postlaminectomy syndrome, lumbar 07/31/2010 Dyslipidemia, goal to be determined 03/08/2009 Overview (03/08/2009): Per Lipid Taxonomy. Assessment & Plan (12/09/2023 10:52 AM EDT): Lipitor 80mg daily DDD (degenerative disc disease), cervical 2008 Degeneration of lumbosacral intervertebral disc 2008 Thoracic and lumbosacral neuritis 2008 Lumbosacral spondylosis 2008 Displacement of lumbar inter vertebral disc without myelopathy 2008 Gastroparesis 04/04/2008 Other specified gastritis without mention of hem orrhage 03/29/2008 Overview (04/06/2008): mod chronic gastritis Migraine with aura and witho ut status migrainosus, not intractable 03/14/2004 Adjustment disorder with depressed mood Anxiety states Overview (01/14/2017): ICD-10 update of inactive term documented as of this encounter (statuses as of 02/04/2024) Resolved Problems Problem Noted Date Diagnosed Date Resolved Date Dyslipidemia 08/24/2023 10/28/2023 Overview (10/28/2023): duplicate Recurrent major depressive disorder 12/15/2021 04/07/2023 Epigastric pain 05/01/2021 07/16/2022 Unstable angina 09/19/2020 06/16/2023 NSTEMI (non-ST elevated myoc ardial infarction) 02/26/2020 02/26/2020 Acute viral syndrome 06/06/2018 019 Overview (12/17/2018): Acute condition Cauda equina syndrome 06/05/20172019 Myalgia and myositis, unspecified 06/18/2012 07/16/2022 Inflammation of sacroiliac joint 07/31/2010 10/04/2019 Vertebral fracture, pathological 08/30/2009 12/17/2018 Overview (12/17/2018): No longer current Lumbago 2008 07/16/2022 Dyslipidemia, goal LDL below 160 04/04/2008 03/08/2009 Overview (03/08/2009): Per Lipid Taxonomy. Chest pain 02/27/2007 07/16/2022 Overview (12/17/2018): Acute condition ADVANCE DIRECTIVE INFORMATION 08/13/2005 09/27/2020 Overview (08/13/2005): No, Advance Directive brochure offered , patient declined. Mixed dyslipidemia 03/14/2004 9 Overview (02/15/2009): Per Lipid Taxonomy Hypothyroidism 03/14/2004 03/28/2023 Overview (03/28/2023): A more specified Dx is now on the PL Colitis, acute 07/16/2022 Overview (12/17/2018): Acute condition Ulcerative colitis, unspecified 04/21/2008 Herpetic vulvovaginitis 06/23 documented as of this encounter (statuses as of 02/04/2024) Immunizations Name Administration Dates Next Due COVID-19 mRNA, LNP-s, No Pre serve, 2-Dose Series (Moderna) 01/17/2021,05/23/2020,04/17/2020 COVID-19, MRNA-LNP, 24-25, P R, 30MCG/0.3ML, IM, 12YRS AND ABOVE ([facility]) 12/11/2023 COVID-19, mRNA, LNP-s, PF, B ooster, 100mcg/0.5mg (Moderna) 07/11/2021 Covid-19, Mrna, Lnp-s, Pf, B ivalent, 50 Mcg, IM, 12 yrs and above (Moderna) 12/24/2021 Seasonal Influenza Vac., MDV , IM, 0.5 mL (Fluzone) 12/08/2014,01/12/2013,11/26/2011, 011 Seasonal Influenza, MDCK, Tr ivalent, PF, (Flucelvax) 01/14/2014 Seasonal Influenza, PF, 6 M & above, IM , (FluLaval or Fluzone) 01/21/2023,12/03/2021,12/15/2020, 020,12/17/2018,04/28/2018 Seasonal Influenza, Quadriva lent, No Preserve, IM 12/18/2015 Seasonal Influenza, Quadriva lent, No Preserve, Mdck 12/05/2016 Seasonal Influenza, Trivalen t, (IIV3), PF, (Fluzone) 11/25/2023 TDAP (age 10 and older)(Boostrix) 10/10/2016 TDAP, Age 7 and older, IM (Adacel) 10/26/2005 documented as of this encounter Social History Tobacco Use Types Packs/Day Years Used Date Smoking Tobacco: Never Smokeless Tobacco: Never Alcohol Use Standard Drinks/Week Comments No 0 (1 standard drink = 0.6 oz pur e alcohol) PHQ-2 Answer Date Recorded PHQ Adult Total Score 0 03/05/2022 Hunger Vital Sign Answer Date Recorded Within the past 12 months, y ou worried that your food would run out before you got the money to buy more. Patient declined Within the past 12 months, t he food you bought just didn't last and you didn't have money to get more. Patient declined Childcare Answer Date Recorded Do you feel overwhelmed with taking care of a child, family member or friend? No 12/20/2023 Does your family need help f inding childcare? (Household - for ages 0-17 years) Not on file 12/20/2023 Clothing Answer Date Recorded Have you been unable to get clothing when it was really needed? No 12/20/2023 Is your family able to get c lothes or diapers when needed? (Household - for ages 0-17 years) Not on file 12/20/2023 Personal Safety Answer Date Recorded Do you feel unsafe or have concerns for your saf ety? No 12/20/2023 Do you have concerns for you r family's safety? (Household - for ages 0-17 years) Not on file 12/20/2023 Utilities Answer Date Recorded Do you have trouble paying y our heating, water, or electric bill? No 12/20/2023 Is your family able to pay t he heat, water, or electric bill? (Household - for ages 0-17 years) Not on file 12/20/2023 Does your family have access to good internet? (Household - for ages 0-17 years) Not on file 12/20/2023 Employment Status Answer Date Recorded Are you unemployed or without regular income? No 12/20/2023 Does the household have a re gular source of income? (Household - for ages 0-17 years) Not on file 12/20/2023 Social Connections Answer Date Recorded How often do you feel lonely or isolated from th ose around you? Never 12/20/2023 Financial Resource Strain Answer Date R ecorded Do you have any trouble payi ng for your medications, or do you think you might in the future? No 12/20/2023 Does your family have troubl e paying for medicine? (Household - for ages 0-17 years) Not on file 12/20/2023 Transportation Needs Answer Date Record ed READ ONLY Do you have troubl e getting a ride to medical visits or work? Never True 12/20/2023 Does your family have a hard time getting a ride to doctors visits? (Household - for ages 0-17 years) Not on file 12/20/2023 Has lack of transportation k ept you from medical appointments, meetings, work, or from getting things needed for daily living? Check all that apply. No 12/20/2023 Do you (or your family) have trouble finding or paying for a ride (transportation)? (Household - for ages 0-17 years) Not on file 12/20/2023 Housing Stability Answer Date Recorded Do you currently live in a s helter or have no steady place to sleep at night? No 12/20/2023 READ ONLY Do you think you a re at risk of becoming homeless? No 12/20/2023 Does your family worry about paying for your home or becoming homeless? (Household - for ages 0-17 years) Not on file 0 12/20/2023 Are you homeless or worried that you might be in the future? No 12/20/2023 Are you (or your family) jeffrey eless or worried that you might be in the future? (Household - for ages 0-17 years) Not on file Food Insecurity Answer Date Recorded Do you need food for this week? No 12/20/2023 Are you able to get enough f ood for your family? (Household - for ages 0-17 years) Not on file 12/20/2023 Does your family need food t his week? (Household - for ages 0-17 years) Not on file 12/20/2023 Do you always have enough fo od for your family? (Household - for ages 0-17 years) Not on file 12/20/2023 Comments No Sex and Gender Information Value Date Recorded Sex Assigned at Female 05/17/2020 2:50 PM EST Legal Sex Female 7:02 AM EST Gender Identity Female 05/17/2020 2:50 PM EST Sexual Orientation Straight 05/17/2020 2: 50 PM EST documented as of this encounter Functional Status * Are you deaf or do you have serious difficulty hearing? Answer Date of Assessment Author No 08/24/2023 2:26 AM Dejuan Ybarra RN * Are you blind or do you have serious difficulty seeing, even when wearing glasses? Answer Date of Assessment Author No 08/24/2023 2:26 AM Dejuan Ybarra RN * Do you have serious difficulty walking or climbing stairs? (5 years old or older) Answer Date of Assessment Author Yes 08/24/2023 2:26 AM Dejuan Ybarra RN * Do you have difficulty dressing or bathing? (5 years old or older) Answer Date of Assessment Author No 08/24/2023 2:26 AM Dejuan Ybarra RN * Because of a physical, mental, or emotional condition, do you have difficulty doing errands alone such as visiting a doctors office or shopping? (15 years old or older) Answer Date of Assessment Author Yes 08/24/2023 2:26 AM Dejuan Ybarra RN documented as of this encounter Mental Status * Because of a physical, mental, or emotional condition, do you have serious difficulty concentrating, remembering, or making decisions? (5 years old or older) Answer Entry Date Author No 08/24/2023 2:26 AM Dejuan Ybarra RN documented in this encounter Miscellaneous Notes * Telephone Encounter - James Sinclair [facility] - 02/04/2024 11:07 AM EST Refused Prescriptions: Disp Refills Gabapentin 600 MG Oral Tablet (Neurontin) 180 Ta*5 Sig: Take 2 tabs in morning, 2 tabs at lunch and 2 tabs at nightRefused By: JAMES SINCLAIR for Refusal: Duplicate Request documented in this encounter Plan of Treatment Upcoming Encounters Date Type Department Care Team ([facility] Contact Info) Description 06/07/2024 11:00 AM EDT Office Visit Cardiology [facility] [address] [place] [phone] Angela Littlejohn CRNP [address] [place] [address] 06/21/2024 10:40 AM EDT Office Visit Family Practice [facility] [address] [place] [address] Keagan Sanchez MD [address] [place] [address] 08/09/2024 10:00 AM EDT Office Visit Orth[facility]edics [facility] [address] [place] [address] Sami Angelo DO [address] [place] [address] 10/07/2024 2:40 PM EDT Office Visit Dermatology [facility] [address] [place] [phone] Alden Ann PA-C [address] [place] [address] 11/25/2024 11:00 AM EDT Office Visit Neurology [facility] [address] [place] [address] Kelly Waddell PA-C [address] [place] [address] Scheduled Procedures Name Priority Associated Diagnoses Date/Ti me COLONOSCOPY FLEXIBLE PROXIMA L DIAGNOSTIC Recall Family history of colonic polyps Health Maintenance Due Date Last Done Comments HIV Screening 1976 Cologuard 2006 Sigmoidoscopy 2006 Zoster Vaccines (1 of 2) 10/15/2011 Fecal Occult Blood Test 08/03/2014 08/03/2013, 01/06 Depression Monitoring 03/05/2023 03/05/2022 *BISPHONATE OR OTHER ACCEPTABLE MEDICATION NEEDED FOR OSTEOPOROSIS (REFER TO SMARTSET #1146) 07/23/2023 DXA Scan 01/02/2024 01/01/2022, 02/22, 12/09/2011, Additional history exists COVID-19 Vaccine ( season) 2024 12/11/2023, 12/24/2021, 07/11/2021, Additional history exists Mammogram 04/24/2024 04/24/2023, 020 03/2023, 04/24/2023, Additional history exists HbA1c 07/16/2024 07/17/2023, 01/23, 09/20/2020, Additional history exists GFR 01/01/2025 01/02/2024, 10/0 06/2023, 12/24/2023, Additional history exists TSH 01/07/2025 01/08/2024, 100 04/2023, 07/17/2023, Additional history exists DTap/Tdap Vaccines (3 - Td or Tdap) 10/10/2026 10/10/2016, 10/26/2005 Albumin/Creatinine Ratio 12/21/2026 12/22/2023 Colonoscopy 04/18/2027 04/18/2022, 03/25, 08/10/2013, Additional history exists Colorectal Cancer Screening 04/18/2027 VITAMIN D LEVEL ONCE IN A LIFETIME-USE SMARTSET# 95511 Completed 01/28/2022, 02/21/2015, 12/30/2011 RETIRED - COLONOSCOPY-EVERY 5 YRS AGES 18-100 Discontinued 04/18/2022, 04/18/2022, 08/10/2013, Additional history exists Influenza Vaccine (FLU shot) Completed 11/25/2023, 01/21/2023, 12/03/2021, Additional history exists HPV (Gardasil) Vaccine Aged Out No lo nger eligible based on patient's age to complete this topic Hepatitis B Vaccine Aged Out No longe r eligible based on patient's age to complete this topic MENINGOCOCCAL (MENACTRA/MENVEO) Aged Out No longer eligible based on patient's age to complete this topic Pneumococcal Vaccine: Pediatrics (0 to 5 Years) and At-Risk Patients (6 to 64 Years) Aged Out No longer eligible based on patient's age to complete this topic documented as of this encounter Medical Devices Implanted Type Area Vineyard Worker Device Identifier Shelf Expiration Date Model / Serial / Lot Medtronic-05/27/2023 Implanted: (Quantity not on file) Neurostimulator [employer] : NEUROLOGIC PAIN 05/26/2049 [id number] / / [id number] Screw Jami Lacie 3 Ti Set - [id number] Implanted:Qt y: 6 on 03/10/2012 at OR [facility] Bilateral : Spine Lumbar LEVON : SPINE [id number] / / Screw Lacie Pa Ti 6.5x50mm - [id number] Implanted:Qt y: 4 on 03/10/2012 at OR [facility] Bilateral : Spine Lumbar LEVON : SPINE [id number] / / [place] Xia3 7.0 X 40mm Screws Implanted:Qt y: 2 on 03/10/2012 at OR [facility] Bilateral : Spine Lumbar [id number] / / Shaun Lacie 3 Ti 6x70mm - [id number] Implanted:Qt y: 1 on 03/10/2012 at OR [facility] N/A: Spine Lumbar LEVON : SPINE [id number] / / Shaun Lacie 3 Ti Max 6x80mm - [id number] Implanted:Qt y: 1 on 03/10/2012 at OR [facility] N/A: Spine Lumbar LEVON : SPINE [id number] / / 9 X 25 X 4 - 8 Avs Wedge Nose Cage Implanted:Qt y: 1 on 03/10/2012 at OR [facility] N/A: Spine Lumbar [id number] / / Stent Synergy Xd Mr 2.71y78wy - [id number] Implanted:Qt y: 1 on 09/20/2020 at CARDIAC LABS [facility] [employer] [id number] 04/18/2022 [id number] / / [id number] Stent Synergy Xd Mr 2.24w57gh - [id number] Implanted:Qt y: 1 on 09/20/2020 at CARDIAC LABS [facility] [employer] [id number] 04/25/2022 [id number] / / [id number] Screw Locking 4.5mm 15mm - [id number] Implanted:Qt y: 1 on 07/11/2022 by Sami Angelo DO at OR [facility] Right: Shoulder [employer] 11/22/2025 [id number] / / [id number] Bseplate Jasmeet Cmntlss W Scrw - [id number] Implanted:Qt y: 1 on 07/11/2022 by Sami Angelo DO OR [facility] Right: Shoulder [employer] 03/24/2027 105-0029 / / [id number] Glenosphere Rev Thee W Scrw - [id number] Implanted:Qt y: 1 on 07/11/2022 by Sami Angelo DO OR [facility] Right: Shoulder [employer] 04/24/2027 [id number] / / [id number] Screw Locking 4.5mm 15mm - [id number] Implanted:Qt y: 1 on 07/11/2022 by Sami Angelo DO at OR [facility] Right: Shoulder [employer] 03/24/2027 108-4515 / / [id number] Screw Locking 4.5mm 20mm - [id number] Implanted:Qt y: 1 on 07/11/2022 by Sami Angelo DO at OR [facility] Right: Shoulder [employer] 03/24/2027 [id number] / / [id number] [place] Ii Stem Ta6v Size 12 Cementless Implanted:Qt y: 1 on 07/11/2022 by Sami Angelo DO at [place] [facility] Right: Shoulder [employer] 10/22/2026 [id number] / / [id number] Cortical Screw Ta6v, 5mm, L. 24mm Implanted:Qt y: 1 on 07/11/2022 by Sami Aneglo, DO at OR [facility] Right: Shoulder [employer] 09/22/2023 [id number] / / [id number] Humeral Cup 135/145 Degree, Standard, 36/+6 Implanted:Qt y: 1 on 07/11/2022 by Sami Angelo, DO at OR [facility] Right: Shoulder 02/21/2025 [id number] / / [id number] Screw Locking 4.5mm 20mm - [id number] Implanted:Qt y: 1 on 07/11/2022 by Sami Angelo, DO at OR [facility] Right: Shoulder [employer] 03/24/2027 108-4520 / / [id number] documented as of this encounter Visit Diagnoses Diagnosis Personal history of fall- Primary Coronary artery disease involving [place] coronary artery of [place] heart without angina pectoris- Primary Atrial flutter, unspecified type (HCC) Drug-induced acute pancreatitis without infection or necrosis Diverticulitis Diverticulitis of colon (without mention of hemorrhage) DYSLIPIDEMIA, GOAL TO BE DETERMINED Other and unspecified hyperlipidemia Hypothyroidism, unspecified type Gastro-esophageal reflux disease without esophagitis Esophageal reflux Age-related osteoporosis without current pathological fracture Senile osteoporosis Degeneration of lumbosacral intervertebral disc Degeneration of lumbar or lumbosacral intervertebral disc Adjustment disorder with depressed mood Anxiety and depression Dysthymic disorder Prediabetes Other abnormal glucose DDD (degenerative disc disease), cervical Degeneration of cervical intervertebral disc Postlaminectomy syndrome, lumbar Postlaminectomy syndrome, lumbar region documented in this encounter Advance Directives * Full Code (Latest Code Status on File) Date Activated Date Inactivated Comments 08/24/2023 2:03 AM 08/25/2023 2:02 PM This order ref lects the patients wishes and were consensually agreed upon. Question Answer Comments Discussion of Advance Directives occurred with: Patient Does the patient have a Living Will? No Does the patient have Health Care Power of Attor toñito? No * Full Code Date Activated Date Inactivated Comments 10/28/2022 11:04 PM 10/29/2022 9:55 PM This order re flects the patients wishes and were consensually agreed upon. Question Answer Comments Discussion of Advance Directives occurred with: Patient Does the patient have a Living Will? No Does the patient have Health Care Power of Attor toñito? No * Full Code Date Activated Date Inactivated Comments 07/11/2022 3:38 PM 07/13/2022 12:54 PM This order reflects the patients wishes and were consensually agreed upon. Question Answer Comments Discussion of Advance Direct tucker occurred with: Not Discussed due to patient's condition * Full Code Date Activated Date Inactivated Comments 03/29/2021 5:57 PM 04/03/2021 3:12 PM This order re flects the patients wishes and were consensually agreed upon. Question Answer Comments Discussion of Advance Directives occurred with: Patient Does the patient have a Living Will? No Does the patient have Health Care Power of Attor toñito? No * Full Code Date Activated Date Inactivated Comments 09/19/2020 9:11 PM 09/21/2020 4:20 PM This order re flects the patients wishes and were consensually agreed upon. Question Answer Comments Discussion of Advance Directives occurred with: Patient Healthcare Agents on File Name Relationship Healthcare Agent [facility] p Communication Donny Pace Spouse Health Care Agent Care Teams Distribution Analyst Relationship Specialty Start Date End Date Keagan Sanchez MD [address] [place] [address] PCP - General Family Medicine 10/07/23 documented as of this encounter
--- OUTSIDE RECORDS SUMMARY | 2024-03-06 12:26 | External Medical Summary | Summary of Care ---
Author Name Unknown Organization [facility] Address [address] [place] [address] Phone [phone] Care Team Providers Care Timber Grader Name Role Phone Keagan Jalloh MD Primary Care Provider [phone] Reason for Visit * Reason Onset Date Comments Medication Refill 03/02/2024 Encounter Details Date Type Department Care Team ([facility] st Contact Info) Description 03/02/[address] [phone] Shane Morales PA-C [address] [place] [phone] Allergies Active Allergy Reactions Criticality Noted Date Comments Adhesive Tape 03/31/2023 Other Reaction(s): Tape- redness, paper tape/coban "ok", [id number] TAPE OK OR COBAN Clarithromycin High 03/31/2023 Other Reaction(s): Rash, diarrhea, RASH,DIARRHEA Duloxetine Hcl Flushing,Nausea/vomi tin g High 10/20/2019 Erythromycin Base Rash 03/14/2004 Orlistat Low 03/31/2023 Other Reaction(s): GI UPSET Penicillins Rash 03/14/2004 Prednisone Other (Please comment) High 10/10/2023 pancreatitis Sulfa Antibiotics Rash 03/14/2004 documented as of this encounter (statuses as of 03/03/2024) Medications Cholecalciferol (VITAMIN D) 1000 UNIT Capsule Take 1 Cap by mouth daily. 30 Cap 11 03/09/20 15 Active Aspirin 81 MG Oral Tablet Chewable Take 1 Tab by mouth daily. 30 Tab 11 02/27/20 20 Active Atorvastatin Calcium 80 MG Oral Tablet (Lipitor) TAKE ONE TABLET BY MOUTH EVERY EVENING 90 Tablet 3 11/29/2023 10:00 AM EDT 03/15/20 23 024 Active Nitroglycerin 0.4 MG Sublingual Tablet Sublingual (Nitrostat) Place 1 Tablet under the tongue every 5 minutes as needed for Pain, Chest. 25 Tablet 1 03/27/19 24 Active Additional Information Patient not taking.Reported on 12/22/2023 amLODIPine Besylate 5 MG Oral Tablet (Norvasc) TAKE ONE TABLET BY MOUTH IN THE MORNING 90 Tablet 3 02/07/2024 12:31 PM EST 05/26/19 24 025 Active Levalbuterol HCl 1.25 MG/3ML Inhalation Nebulization Solution (Xopenex)Indicat ions:Acute cough,Shortness of breath,Bronchiti s Inhale 1 Ampule via nebulizer every 4 hours as needed for Wheezing. 72 mL 12 08/15/19 24 Active Additional Information Patient not taking.Reported on 01/08/2024 Metoprolol Succinate ER 25 MG Oral Tablet Extended Release 24 Hour (toPROL XL)Indications:A trial flutter, unspecified type (HCC) TAKE ONE TABLET BY MOUTH IN THE MORNING. 90 Tablet 3 03/03/2024 10:54 AM EST 08/28/19 24 025 Active Levalbuterol Tartrate 45 MCG/ACT Inhalation Aerosol (Xopenex HFA)Indications: Shortness of breath,Bronchiti s, complicated Inhale 2 Puffs by mouth every 4 hours as needed for Wheezing. 15 g 12 09/09/19 24 Active Additional Information Patient not taking.Reported on 01/08/2024 hydrOXYzine HCl 50 MG Oral Tablet Take 1 Tablet by mouth 3 times a day as needed for Anxiety (hyperventilati on). 30 Tablet 09/12/19 24 Active Sertraline HCl 100 MG Oral Tablet (Zoloft) 09/23/19 24 Active Ezetimibe 10 MG Oral Tablet (Zetia)Indicatio ns:Coronary artery disease involving [place] coronary artery of [place] heart with unstable angina pectoris (HCC) TAKE ONE TABLET BY MOUTH EVERY MORNING 90 Tablet 3 01/23/2024 9:15 AM EDT 11/07/19 24 025 Active Levothyroxine Sodium 112 MCG Oral Tablet (Levoxyl) TAKE 1 TABLET BY MOUTH DAILY AT LEAST 30 MINUTES PRIOR TO FIRST MEAL OF THE DAY OR OTHER MEDICATIONS 90 Tablet 1 02/24/2024 1:40 PM EST 11/21/19 24 025 Active Topiramate 25 MG Oral Tablet (topAMAX) Take 2 tablets by mouth nightly 180 Tablet 2 02/18/2024 11:49 AM EST 11/25/19 24 Active Amitriptyline HCl 50 MG Oral Tablet [...] 1 Tablet before bedtime. 90 Tablet 2 12/19/19 24 Active Additional Information Patient not taking.Reported on 12/29/2023 Metoclopramide HCl 10 MG Oral Tablet (Reglan) Take 1 Tablet by mouth 3 times a day. 270 Tablet 01/06/2024 11:55 AM EDT 01/04/20 24 Active Baclofen 20 MG Oral Tablet Take 1 Tablet by mouth 4 times a day. 360 Tablet 01/06/2024 11:55 AM EDT 01/04/20 24 Active Sucralfate 1 GM Oral Tablet (Carafate)Indica tions:Left lower quadrant pain,Chronic constipation,Gas troparesis,Gastr oesophageal reflux disease without esophagitis,Christal lcoholic fatty liver disease,Abnormal LFTs,Drug-induce d acute pancreatitis without infection or necrosis,Abdomin al pain, epigastric,Chron ic superficial gastritis without bleeding Take 1 Tablet by mouth in the morning and 1 Tablet at noon and 1 Tablet before bedtime. 180 Tablet 3 01/08/2024 4:35 PM EDT 01/08/20 24 Active Pantoprazole Sodium 40 MG Oral Tablet [...] 90 Tablet 3 02/02/2024 3:35 PM EST 01/08/20 24 Active Famotidine 20 MG Oral Tablet (Pepcid)Indicati ons:Left lower quadrant pain,Chronic constipation,Gas troparesis,Gastr oesophageal reflux disease without esophagitis,Christal lcoholic fatty liver disease,Abnormal LFTs,Drug-induce d acute pancreatitis without infection or necrosis,Abdomin al pain, epigastric,Chron ic superficial gastritis without bleeding Take 2 tablets by mouth at bedtime. 60 Tablet 11 01/29/2024 9:12 AM EST 01/08/20 24 Active traMADol HCl 50 MG Oral Tablet (Ultram)Indicati ons:Postlaminect stefany syndrome, lumbar Take 2 Tablets by mouth every 6 hours as needed for Pain, Moderate. 240 Tablet 01/31/20 24 Active Polyethylene Glycol 3350 17 GM/SCOOP Oral Powder (MiraLax) Take 17 g by mouth in the morning. One cap full in juice, to effect 1 stool per day. .. 02/03/20 24 Active Gabapentin 600 MG Oral Tablet (Neurontin)Indic ations:DDD (degenerative disc disease), cervical,Postlam inectomy syndrome, lumbar Take 2 tabs in morning, 2 tabs at lunch and 2 tabs at night 540 Tablet 02/03/2024 6:01 PM EST 02/03/20 24 Active Diclofenac Sodium 50 MG Oral Tablet Delayed Release (Voltaren) Take 1 Tablet by mouth in the morning and 1 Tablet before bedtime. 60 Tablet 02/24/20 24 Active metFORMIN HCl 500 MG Oral Tablet (Glucophage) Take 1 Tablet by mouth 2 times a day with morning and evening meals. 60 Tablet 4 03/03/20 24 Active metFORMIN HCl 500 MG Oral Tablet (Glucophage) Take 1 Tablet by mouth 2 times a day with morning and evening meals. 60 Tablet 4 11/06/19 24 024 Discontin ued(Refil l) documented as of this encounter (statuses as of 03/03/2024) Active Problems Problem Noted Date Diagnosed Date [...] hypothyroidism 04/12/2021 Coronary artery disease invo lving [place] coronary artery of [place] heart without angina pectoris 09/27/2020 Assessment & Plan (12/09/2023 10:51 AM EDT): Has 3 stents (2 in LAD one in diagonal), [place] [facility] [place] [address] Womack Followed by [facility] cardiology, Angela Littlejohn, next appt May 2024 Has current NTG On Metoprolol 25mg daily, Lipitor 80mg daily and ASA 81mg S/P angioplasty with stent 09/27/2020 Status post insertion of chari g-eluting stent into left anterior descending (LAD) artery [...] as of this encounter (statuses as of 03/03/2024) Resolved Problems Problem Noted Date Diagnosed Date [...] as of this encounter (statuses as of 03/03/2024) Immunizations Name Administration Dates Next Due COVID-19 mRNA, LNP-s, No Pre serve, 2-Dose Series (Moderna) 01/17/2021,05/23/2020,04/17/2020 COVID-19, MRNA-LNP, 24-25, P R, 30MCG/0.3ML, IM, 12YRS AND ABOVE (Pfizer-Comirnaty) 12/11/2023 COVID-19, mRNA, LNP-s, PF, B ooster, [...] No 12/20/2023 Does the household have a [facility] income? (Household - for ages [...] of Assessment Author Yes 08/24/2023 2:26 AM EDT Poust, Al vaughn, RN documented as of this encounter Mental Status * Because of a physical, mental, or emotional condition, do you have serious difficulty concentrating, remembering, or making decisions? (5 years old or older) Answer Entry Date Author No 08/24/2023 2:26 AM EDT Dejuan Rodrigues RN documented in this encounter Miscellaneous Notes * Telephone Encounter - [facility] - 03/03/2024 4:22 PM ESTSigned Prescriptions: Disp Refills metFORMIN HCl 500 MG Oral Tablet (Glucopha*60 Tab*4 Sig: Take 1 Tablet by mouth 2 times a day with morning and evening meals.Authorizing Provider: Amirah JALLOH User: [facility] Electronically signed by [facility] at 03/03/2024 4:22 PM EST documented in this encounter Plan of Treatment Upcoming Encounters Date Type Department Care Team (Late st Contact Info) Description 06/07/2024 11:00 AM EDT Office Visit Cardiology [address] [phone] Angela Littlejohn CRNP [address] [place] [address] 06/21/2024 10:40 AM EDT Office Visit Family Practice [address] [phone] Keagan Jalloh MD [address] [place] [address] 08/09/2024 10:00 AM EDT Office Visit Orthopaedics [facility] [phone] Sami Angelo DO [address] [place] [address] 10/07/2024 2:40 PM EDT Office Visit Dermatology [facility] [address] [place] [phone] Alden Ann PA-C [address] [facility] [place] [address] 11/25/2024 11:00 AM EDT Office Visit Neurology [facility] [place] [address] [place] [address] Kelly Waddell PA-C [address] [place] [phone] Scheduled Procedures Name Priority Associated Diagnoses Date/Ti [...] 07/11/2021, Additional history exists Mammogram 04/24/2024 04/24/2023, 03/2023, 04/24/2023, Additional history exists HbA1c 07/16/2024 07/17/2023, 01/23, 09/20/2020, Additional history exists GFR 01/01/2025 01/02/2024, 06/2023, 12/24/2023, Additional history exists TSH 01/07/2025 01/08/2024, 04/2023, 07/17/2023, Additional history exists DTap/Tdap Vaccines (3 - Td or Tdap) 10/10/2026 10/10/2016, 10/26/2005 Albumin/Creatinine Ratio 12/21/2026 12/22/2023 Colonoscopy 04/18/2027 04/18/2022, 03/25, 08/10/2013, Additional history exists Colorectal Cancer Screening 04/18/2027 VITAMIN D LEVEL ONCE IN A LIFETIME-USE SMARTSET# [id number] Completed 01/28/2022, 02/21/2015, 12/30/2011 RETIRED - COLONOSCOPY-EVERY [...] this encounter Medical Devices Implanted Type Area Solar Systems Designer Device Identifier Shelf Expiration Date Model / Serial / Lot Medtronic-05/27/2023 Implanted: (Quantity not on file) Neurostimulator [employer] : NEUROLOGIC PAIN 05/26/2049 [id number] / / [id number] Screw Jami Lacie 3 Ti Set - [id number] Implanted:Qt y: 6 on 03/10/2012 at [place] [facility] Bilateral : Spine Lumbar LEVON : SPINE [id number] / / Screw Lacie Pa Ti 6.5x50mm - [id number] Implanted:Qt y: 4 on 03/10/2012 at [place] [facility] Bilateral : Spine Lumbar LEVON : SPINE [id number] / / Levon Xia3 7.0 X 40mm Screws Implanted:Qt y: 2 on 03/10/2012 at [place] [facility] Bilateral : Spine Lumbar [id number] / / Shaun Lacie 3 Ti 6x70mm - [id number] Implanted:Qt y: 1 on 03/10/2012 at [place] [facility] N/A: Spine Lumbar LEVON : SPINE [id number] / / Shaun Lacie 3 Ti Max 6x80mm - [id number] Implanted:Qt y: 1 on 03/10/2012 at [place] [facility] N/A: Spine Lumbar LEVON : SPINE [id number] / / 9 X 25 X 4 - 8 Avs Wedge Nose Cage Implanted:Qt y: 1 on 03/10/2012 at [place] [facility] N/A: Spine Lumbar [id number] / / Stent Synergy Xd Mr 2.36t95mp - [id number] Implanted:Qt y: 1 on 09/20/2020 at [facility] [employer] [id number] 04/18/2022 [id number] / / [id number] Stent Synergy Xd Mr 2.27j98pu - [id number] Implanted:Qt y: 1 on 09/20/2020 at [facility] [employer] [id number] 04/25/2022 [id number] / / [id number] Screw Locking 4.5mm 15mm - [id number] Implanted:Qt y: 1 on 07/11/2022 by Sami Angelo DO at [place] [facility] Right: Shoulder [employer] 11/22/2025 108-4515 / / [id number] Bseplate Jasmeet Cmntlss W Scrw - [id number] Implanted:Qt y: 1 on 07/11/2022 by Sami Angelo DO at [place] [facility] Right: Shoulder [employer] 03/24/2027 105-0029 / / [id number] [employer] Rev Thee W Scrw - [id number] Implanted:Qt y: 1 on 07/11/2022 by Sami Angelo DO at [place] [facility] Right: Shoulder [employer] 04/24/2027 105-3610 / / [id number] Screw Locking 4.5mm 15mm - [id number] Implanted:Qt y: 1 on 07/11/2022 by Sami Angelo DO at [place] [facility] Right: Shoulder [employer] 03/24/2027 108-4515 / / [id number] Screw Locking 4.5mm 20mm - [id number] Implanted:Qt y: 1 on 07/11/2022 by Sami Angelo DO at [place] [facility] Right: Shoulder [employer] 03/24/2027 108-4520 / / [id number] Humelock Ii Stem Ta6v Size 12 Cementless Implanted:Qt y: 1 on 07/11/2022 by Sami Angelo DO at [place] [facility] Right: Shoulder [employer] 10/22/2026 [id number] / / [id number] Cortical Screw Ta6v, 5mm, L. 24mm Implanted:Qt y: 1 on 07/11/2022 by Sami Angelo DO at [place] [facility] Right: Shoulder [employer] 09/22/2023 107-4524 / / [id number] Humeral Cup 135/145 Degree, Standard, 36/+6 Implanted:Qt y: 1 on 07/11/2022 by Sami Angelo DO at [place] [facility] Right: Shoulder 02/21/2025 [id number] / / [id number] Screw Locking 4.5mm 20mm - [id number] Implanted:Qt y: 1 on 07/11/2022 by Sami Angelo DO at [place] [facility] Right: Shoulder [employer] 03/24/2027 108-4520 / / [id number] documented as of this encounter Advance Directives * Full Code [...] Agents on File Name Relationship Healthcare Agent Relationshi p Communication Donny Pace Spouse Health Care Agent Care Teams Timber Grader Relationship Specialty Start Date End Date Keagan Jalloh MD [address] [place] [phone] PCP - General Family Medicine 10/07/23 documented as of this encounter
--- OUTSIDE RECORDS SUMMARY | 2024-03-06 12:26 | External Medical Summary | Summary of Care ---
Author Name Unknown Organization [facility] Address [address] [place] [address] Phone [phone] Care Team Providers Care Table Games Supervisor Name Role Phone Keagan Jalloh MD Primary Care Provider [phone] Reason for Visit * Reason Onset Date Comments Med Request 01/29/2024 Sent My G 02/01 Encounter Details Date Type Department Care Team ([facility] Contact Info) Description 01/29/[address] [address] Keagan Jalloh MD [address] [place] [id number] Med Request (Sent My G 02/01) Allergies Active Allergy Reactions Criticality Noted Date Comments Adhesive Tape 03/31/2023 Other Reaction(s): Tape- redness, paper tape/coban "ok", [id number]-[id number]-[id number] TAPE OK OR COBAN Clarithromycin High 03/31/2023 Other Reaction(s): Rash, diarrhea, RASH,DIARRHEA Duloxetine Hcl Flushing,Nausea/vomi tin g High 10/20/2019 Erythromycin Base Rash 03/14/2004 Orlistat Low 03/31/2023 Other Reaction(s): GI UPSET Penicillins Rash 03/14/2004 Prednisone Other (Please comment) High 10/10/2023 pancreatitis Sulfa Antibiotics Rash 03/14/2004 documented as of this encounter (statuses as of 02/02/2024) Medications Cholecalciferol (VITAMIN D) 1000 UNIT Capsule [...] Oral Tablet (Zetia)Indicatio ns:Coronary artery disease involving chefornak coronary 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 60 Tablet 2 4 Active Gabapentin 600 MG Oral Tablet (Neurontin)Indic ations:DDD (degenerative disc disease), cervical,Postlam inectomy syndrome, lumbar Take 2 tabs in morning, 2 tabs at lunch and 2 tabs at night 180 Tablet 5 4 Active Metoclopramide HCl 10 MG Oral [...] 3 01/08/2024 4:35 PM EDT 4 Active Lubiprostone 24 MCG Oral Capsule (Amitiza)Indicat ions:Left lower quadrant pain,Chronic constipation,Gas troparesis,Gastr oesophageal reflux disease without esophagitis,Christal lcoholic fatty liver disease,Abnormal LFTs,Drug-induce d acute pancreatitis without infection or necrosis,Abdomin al pain, epigastric,Chron ic superficial gastritis without bleeding Take 1 Capsule by mouth 2 times a day with morning and evening meals. 200 Capsule 3 01/08/2024 4:35 PM EDT 4 Active [...] to 1 tablet daily 90 Tablet 3 4 Active Famotidine 20 MG Oral Tablet [...] as needed for Pain, Moderate. 240 Tablet Active documented as of this encounter (statuses as of 02/02/2024) Active Problems Problem Noted Date Diagnosed Date [...] hypothyroidism 04/12/2021 Coronary artery disease invo lving chefornak coronary artery of chefornak heart without angina pectoris 09/27/2020 Assessment & Plan (12/09/2023 10:51 AM EDT): Has 3 stents (2 in LAD one in diagonal), placed at [facility] [place] [address] Womack Followed by [facility] cardiology, Angela Littlejohn, next appt May 2024 [...] as of this encounter (statuses as of 02/02/2024) Resolved Problems Problem Noted Date Diagnosed Date [...] as of this encounter (statuses as of 02/02/2024) Immunizations Name Administration Dates Next Due COVID-19 mRNA, LNP-s, No Pre serve, 2-Dose Series (Moderna) 01/17/2021,05/23/2020,04/17/2020 COVID-19, MRNA-LNP, 24-25, P R, 30MCG/0.3ML, IM, 12YRS AND ABOVE ([facility]) 12/11/2023 COVID-19, mRNA, LNP-s, PF, B ooster, [...] 12/20/2023 Does the household have a re lar source of income? (Household - for ages [...] Assessment Author Yes 08/24/2023 2:26 AM EDT Dejuan Rodrigues RN documented as of this encounter Mental Status * Because of a physical, mental, or emotional condition, do you have serious difficulty concentrating, remembering, or making decisions? (5 years old or older) Answer Entry Date Author No 08/24/2023 2:26 AM EDT Dejuan Rodrigues RN documented in this encounter Miscellaneous Notes * Telephone Encounter - Bekah Concepcion MED ASSIST - 02/02/2024 10:53 AM EST Sent pt My G. * Telephone Encounter - Keagan Jalloh MD - 01/31/2024 11:57 AM EST Please call in the prescription to patients pharmacy and close encounter. Signed Prescriptions: Disp Refills traMADol HCl 50 MG Oral Tablet (Ultram) 240 Ta*0 Sig: Take 2 Tablets by mouth every 6 hours as needed for Pain, Moderate. Authorizing Provider: KEAGAN JALLOH * Telephone Encounter - Jyoti Perry OSA - 01/31/2024 11:21 AM EST Patient calling in to check on the status of previous message. Patient Called after 48 hour timeframe and escalation e-mail was sent to clinic leadership. Patient only has 1 pill left and needs script sent to pharmacy. * Telephone Encounter - Bekah Concepcion MED ASSIST - 01/29/2024 4:03 PM EST Please see below and advise. * Telephone Encounter - Hilary Childress CPhT - 01/29/2024 3:49 PM EST Pt is going to be out of medication on Friday. Patient calling requesting refills for traMADol HCl 50 MG Oral Tablet (Ultram) . Upon chart review,medication was last prescribed by emergency room. Pt did not schedule a hospital follow up visit. Please advise if you wish to continue this therapy for the patient. Thank you, Sarah Childress CPhT Senior Mechanical Technician II [facility] 01/29/2024,3:49 PM documented in this encounter Plan of Treatment Upcoming Encounters Date Type Department Care Team (Late st Contact Info) Description 02/02/2024 12:30 PM EST Home Visit [facility] [address] [place] [address] Nika Guevara RN [address] [place] [address] 02/11/2024 10:30 AM EST Telemedicine [facility] [address] [place] [address] Oriana Isaacs PA-C [address] [place] [address] Edith Garcia, Community Health Sales Promotion Coordinator [address] [place] [address] 06/07/2024 11:00 AM EDT Office Visit Cardiology [address] [place] [address] Angela Littlejonh CRNP [address] [place] [address] 06/21/2024 10:40 AM EDT Office Visit Family [address] [phone] Keagan Jalloh MD [address] [place] [address] 08/09/2024 10:00 AM EDT Office Visit Orthopaedics Andrez Alejandre [address] [place] [address] Sami Angelo DO [address] [place] [address] 10/07/2024 2:40 PM EDT Office Visit Dermatology [facility] [address] [place] [phone] Alden Ann PA-C [address] [place], [place] [id number] 11/25/2024 11:00 AM EDT Office Visit Neurology [facility] [address] [place] [address] Kelly Waddell PA-C [address] [place] [address] Scheduled Procedures Name Priority Associated Diagnoses Date/Ti [...] 07/11/2021, Additional history exists Mammogram 04/24/2024 04/24/2023, 0203/2023, 04/24/2023, Additional history exists HbA1c 07/16/2024 07/17/2023, 01/23, 09/20/2020, Additional history exists GFR 01/01/2025 01/02/2024, 06/2023, 12/24/2023, Additional history exists TSH 01/07/2025 01/08/2024, 04/2023, 07/17/2023, Additional history exists DTap/Tdap Vaccines (3 - Td or Tdap) 10/10/2026 10/10/2016, 10/26/2005 Albumin/Creatinine Ratio 12/21/2026 12/22/2023 Colonoscopy 04/18/2027 04/18/2022, 03/25, 08/10/2013, Additional history exists Colorectal Cancer Screening 04/18/2027 VITAMIN D LEVEL ONCE IN A LIFETIME-USE SMARTSET# 92220 Completed 01/28/2022, 02/21/2015, 12/30/2011 RETIRED - COLONOSCOPY-EVERY [...] this encounter Medical Devices Implanted Type Area Radio Tower Technician Device Identifier Shelf Expiration Date Model / Serial / Lot Medtronic-05/27/2023 Implanted: (Quantity not on file) Neurostimulator MEDTRONIC : NEUROLOGIC PAIN 05/26/2049 [id number] / / [id number] Screw Ajmi Lacie 3 Ti Set - [id number] Implanted:Qt y: 6 on 03/10/2012 at OR [facility] Bilateral : Spine Lumbar LEVON : SPINE [id number] / / Screw Lacie Pa Ti 6.5x50mm - [id number] Implanted:Qt y: 4 on 03/10/2012 at OR [facility] Bilateral : Spine Lumbar LEVON : SPINE [id number] / / Galloway Xia3 7.0 X 40mm Screws Implanted:Qt y: 2 on 03/10/2012 at [facility] Bilateral : Spine Lumbar [id number] / / Shaun Lacie 3 Ti 6x70mm - [id number] Implanted:Qt y: 1 on 03/10/2012 at OR [facility] N/A: Spine Lumbar LEVON : SPINE [id number] / / Shaun Lacie 3 Ti Max 6x80mm - [id number] Implanted:Qt y: 1 on 03/10/2012 at OR [facility] N/A: Spine Lumbar LEVON : SPINE [id number] / / 9 X 25 X 4 - 8 Avs Wedge Nose Cage Implanted:Qt y: 1 on 03/10/2012 at OR [facility] N/A: Spine Lumbar [id number] / / Stent Synergy Xd Mr 2.50d74re - [id number] Implanted:Qt y: 1 on 09/20/2020 at [facility] [employer] [id number] 04/18/2022 [id number] / / [id number] Stent Synergy Xd Mr 2.99c04ui - [id number] Implanted:Qt y: 1 on 09/20/2020 at [facility] [employer] [id number] 04/25/2022 [id number] / / [id number] Screw Locking 4.5mm 15mm - [id number] Implanted:Qt y: 1 on 07/11/2022 by Sami Angelo DO at OR [facility] Right: Shoulder [employer] 11/22/2025 108-4515 / / [id number] Bseplate Jasmeet Cmntlss W Scrw - [id number] Implanted:Qt y: 1 on 07/11/2022 by Sami Angelo DO at OR [facility] Right: Shoulder [employer] 03/24/2027 105-0029 / / [id number] Glenosphere Rev Thee W Scrw - [id number] Implanted:Qt y: 1 on 07/11/2022 by Sami Angelo DO at OR [facility] Right: Shoulder [employer] 04/24/2027 105-3610 / / [id number] Screw Locking 4.5mm 15mm - [id number] Implanted:Qt y: 1 on 07/11/2022 by Sami Angelo DO OR [facility] Right: Shoulder [employer] 03/24/2027 108-4515 / / [id number] Screw Locking 4.5mm 20mm - [id number] Implanted:Qt y: 1 on 07/11/2022 by Sami Angelo DO OR [facility] Right: Shoulder [employer] 03/24/2027 108-4520 / / [id number] Humelock Ii Stem Ta6v Size 12 Cementless Implanted:Qt y: 1 on 07/11/2022 by Sami Angelo DO OR [facility] Right: Shoulder [employer] 10/22/2026 311-0212 / / [id number] Cortical Screw Ta6v, 5mm, L. 24mm Implanted:Qt y: 1 on 07/11/2022 by Sami Angelo DO OR [facility] Right: Shoulder [employer] 09/22/2023 107-4524 / / [id number] Humeral Cup 135/145 Degree, Standard, 36/+6 Implanted:Qt y: 1 on 07/11/2022 by Sami Angelo DO OR [facility] Right: Shoulder 02/21/2025 313-0706 / / [id number] Screw Locking 4.5mm 20mm - [id number] Implanted:Qt y: 1 on 07/11/2022 by Sami Angelo DO OR [facility] Right: Shoulder [employer] 03/24/2027 108-4520 / / [id number] documented as of this encounter Visit Diagnoses Diagnosis Personal history of fall- Primary Coronary artery disease involving chefornak coronary artery of chefornak heart without angina pectoris- Primary Atrial flutter, [...] depression Dysthymic disorder Prediabetes Other abnormal glucose Postlaminectomy syndrome, lumbar Postlaminectomy syndrome, lumbar region [...] Agents on File Name Relationship Healthcare Agent [facility] p Communication Donny Pace Spouse Health Care Agent Care Teams Table Games Supervisor Relationship Specialty Start Date End Date Keagan Jalloh MD [address] [place] [address] PCP - General Family Medicine 10/07/23 documented as of this encounter
--- OUTSIDE RECORDS SUMMARY | 2024-03-06 12:26 | External Medical Summary | Summary of Care ---
Author Name Unknown Organization [facility] Address [address] [place] [address] Phone [phone] Care Team Providers Care Rn Shift Mgr Name Role Phone Keagan Sanchez MD Primary Care Provider [phone] Encounter Details Date Type Department Care Team (Late st Contact Info) Description 02/02/2024 12:30 PM [facility] [place] [address] [place] [address] Nika Guevara RN [address] [place] [address] Allergies Active Allergy Reactions Criticality Noted Date Comments Adhesive Tape 03/31/2023 Other Reaction(s): Tape- redness, paper tape/coban "ok", [id number]-OSCOU TAPE OK OR COBAN Clarithromycin High 03/31/2023 [...] Oral Tablet (Zetia)Indicatio ns:Coronary artery disease involving chilkat coronary artery of chilkat heart with unstable angina pectoris (HCC) TAKE [...] day. 360 Tablet 01/06/2024 11:55 AM EDT Active Sucralfate 1 GM Oral Tablet (Carafate)Indica [...] 3 01/08/2024 4:35 PM EDT 4 Active Additional Information Patient not taking.Reported on 02/02/2024 Pantoprazole Sodium 40 MG Oral Tablet Delayed [...] 60 Tablet 11 01/29/2024 9:12 AM EST Active traMADol HCl 50 MG Oral Tablet [...] hypothyroidism 04/12/2021 Coronary artery disease invo lving chilkat coronary artery of chilkat heart without angina pectoris 09/27/2020 Assessment & Plan (12/09/2023 10:51 AM EDT): Has 3 stents (2 in LAD one in diagonal), placed at [facility] [place] [address] Womack Followed by [facility] cardiology, Angela Littlejohn, next appt May 2024 [...] P R, 30MCG/0.3ML, IM, 12YRS AND ABOVE [facility] 12/11/2023 COVID-19, mRNA, LNP-s, PF, B ooster, [...] PM EST documented as of this encounter Last Filed Vital Signs Vital Sign Reading Time Taken Comments Blood Pressure 118/70 02/02/2024 2:47 PM EST Pulse 63 02/02/2024 2:47 PM EST Temperature - - Respiratory Rate - - Oxygen Saturation 96% 02/02/2024 2:47 PM EST room air Inhaled Oxygen Concentration - - Weight - - Height - - Body Mass Index - - documented in this encounter Functional Status * Are you deaf or do you have serious difficulty hearing? Answer Date of Assessment Author No 08/24/2023 2:26 AM EDDejuan Lee RN * Are you blind or do you have serious difficulty seeing, even when wearing glasses? Answer Date of Assessment Author No 08/24/2023 2:26 AM EDDejuan Lee RN * Do you have serious difficulty [...] Dejuan Ybarra RN documented in this encounter Progress Notes * Nika Guevara RN - 02/02/2024 2:30 PM EST Current Concerns: Shalini is a 63 y/o female being seen in her home for a routine [facility] visit. She is sitting at table during visit. No distress. No acute needs. She is in good spirits. She was seen by GI 01.08.24. She does not feel she needs [facility] services any longer r/t feeling better. She is aware to call PCP office for future needs. She wishes to cx up coming [facility] provider on 02.11.24 Physical Exam: Physical Exam Constitutional: General: She is awake. Appearance: Normal appearance. HENT: Mouth/Throat: Mouth: Mucous membranes are moist. Neck: Vascular: No hepatojugular reflux or JVD. Cardiovascular: Rate and Rhythm: Normal rate. Pulmonary: Effort: Pulmonary effort is normal. Breath sounds: Normal breath sounds. Comments: unlabored Abdominal: General: Bowel sounds are normal. Palpations: Abdomen is soft. Musculoskeletal: General: Normal range of motion. Cervical back: Full passive range of motion without pain and normal range of motion. Right lower leg: No edema. Left lower leg: No edema. Right foot: Normal range of motion. Left foot: Normal range of motion. Skin: General: Skin is warm and dry. Neurological: Mental Status: She is alert and oriented to person, place, and time. Mental status is at baseline. GCS: GCS eye subscore is 4. GCS verbal subscore is 5. GCS motor subscore is 6. Psychiatric: Attention and Perception: Attention and perception normal. Mood and Affect: Mood and affect normal. Speech: Speech normal. Behavior: Behavior normal. Behavior is cooperative. Thought Content: Thought content normal. Cognition and Memory: Cognition normal. Judgment: Judgment normal. Review of Systems: Review of Systems HENT: Positive for postnasal drip (at night - chronic). Eyes: Wears glasses Gastrointestinal: Negative for constipation (chronic). Does not tolerate sauces or greasy foods irritate her pancreatitis & gastritis. LBM yesterday Takes miralax every other day Drinks prune juice every other day Genitourinary: Has neurogenic bladder Musculoskeletal: Positive for arthralgias, back pain (chronic) and neck pain. Neuro stimulator implanted in right back above hip follows up with pain management Dr. Esteves & Dr. Daly [facility]. F/u with neurospine Skin: Negative. Care Plan Goal Progress: Patient will remain free of falls. (Progressing) Start: 12/29/23 Expected End: 03/30/24 Goal Note No falls since last visit Orders Placed: No orders of the defined types were placed in this encounter. Medications Given: Care Gaps: Care Gaps Care gaps closed this contact:: Home based procedures (02/02/24 1504) Type of education: Clinical/disease (02/02/24 144) Procedure performed: ([facility] graduation) (02/02/24 1504) Type of medication care gap: Medication adherence;Medication optimization (02/02/24 144) Type of plan of care (POC) care gap: Adjustment of plan of care (POC) and/or Integrated Care Plan (ICP) (02/02/24 1444) documented in this encounter Plan of Treatment Upcoming Encounters Date Type Department Care Team ([facility] Contact Info) Description 06/07/2024 11:00 AM EDT Office Visit Cardiology [facility] [place] [place] [address] Angela Littlejohn CRNP [address] [place] [phone] 06/21/2024 10:40 AM EDT Office Visit Family Practice [facility] [address] [place] [phone] Keagan Sanchez MD [address] [place] [address] 08/09/2024 10:00 AM EDT Office Visit Orthopaedics [facility] [address] [place] [address] Sami Angelo DO [address] [place] [address] 10/07/2024 2:40 PM EDT Office Visit Dermatology [facility] [address] [place] [address] Alden Ann PA-C [address] [place] [address] 11/25/2024 11:00 AM EDT Office Visit Neurology [facility] [address] [place] [address] Kelly Waddell PA-C [address] [place] [address] Scheduled Procedures Name Priority Associated Diagnoses Date/Ti [...] SMARTSET #1146) 07/23/2023 DXA Scan 01/02/2024 01/01/2022, 12/03/2016, 12/09/2011, Additional history exists COVID-19 Vaccine ( [...] D LEVEL ONCE IN A LIFETIME-USE SMARTSET# [id number] Completed 01/28/2022, 02/21/2015, 12/30/2011 RETIRED - COLONOSCOPY-EVERY [...] this encounter Medical Devices Implanted Type Area Final Rail Cutter Device Identifier Shelf Expiration Date Model / Serial / Lot Medtronic-05/27/2023 Implanted: (Quantity not on file) Neurostimulator MEDTRONIC : NEUROLOGIC PAIN 05/26/2049 [id number] / / [id number] Screw Jami Lacie 3 Ti Set - [id number] Implanted:Qt y: 6 on 03/10/2012 at [place] [facility] Bilateral : Spine Lumbar LEVON : SPINE [id number] / / Screw Lacie Pa Ti 6.5x50mm - [id number] Implanted:Qt y: 4 on 03/10/2012 at OR [facility] Bilateral : Spine Lumbar LEVON : SPINE [id number] / / Levon Xia3 7.0 X 40mm Screws Implanted:Qt y: 2 on 03/10/2012 at [facility] Bilateral : Spine Lumbar [id number] / / Shaun Lacie 3 Ti 6x70mm - [id number] Implanted:Qt y: 1 on 03/10/2012 at OR [facility] N/A: Spine Lumbar LEVON : SPINE [id number] / / Shaun Lacie 3 Ti Max 6x80mm - [id number] Implanted:Qt y: 1 on 03/10/2012 at OR [facility] N/A: Spine Lumbar LEVON : SPINE [id number] / / 9 X 25 X 4 - 8 Avs Wedge Nose Cage Implanted:Qt y: 1 on 03/10/2012 at OR [facility] N/A: Spine Lumbar [id number] / / Stent Synergy Xd Mr 2.69n15id - [id number] Implanted:Qt y: 1 on 09/20/2020 at [facility] [employer] [id number] 04/18/2022 [id number] / / [id number] Stent Synergy Xd Mr 2.20n73pg - [id number] Implanted:Qt y: 1 on 09/20/2020 at [facility] [employer] [id number] 04/25/2022 [id number] 2220 / / [id number] Screw Locking 4.5mm 15mm - [id number] Implanted:Qt y: 1 on 07/11/2022 by Sami Angelo DO at [facility] Right: Shoulder [employer] 11/22/2025 108-4515 / / [id number] Bseplate Jasmeet Cmntlss W Scrw - [id number] Implanted:Qt y: 1 on 07/11/2022 by Sami Angelo DO at [facility] Right: Shoulder [employer] 03/24/2027 105-0029 / / [id number] Glenosphere Rev Thee W Scrw - [id number] Implanted:Qt y: 1 on 07/11/2022 by Sami Angelo DO at [facility] Right: Shoulder [employer] 04/24/2027 105-3610 / / [id number] Screw Locking 4.5mm 15mm - [id number] Implanted:Qt y: 1 on 07/11/2022 by Sami Angelo DO at [facility] Right: Shoulder [employer] 03/24/2027 108-4515 / / [id number] Screw Locking 4.5mm 20mm - [id number] Implanted:Qt y: 1 on 07/11/2022 by Sami Angelo DO at [facility] Right: Shoulder [employer] 03/24/2027 108-4520 / / [id number] Humelock Ii Stem Ta6v Size 12 Cementless Implanted:Qt y: 1 on 07/11/2022 by Sami Angelo DO at [facility] Right: Shoulder [employer] 10/22/2026 311-0212 / / [id number] Cortical Screw Ta6v, 5mm, L. 24mm Implanted:Qt y: 1 on 07/11/2022 by Sami Angelo DO at [facility] Right: Shoulder [employer] 09/22/2023 107-4524 / / [id number] Humeral Cup 135/145 Degree, Standard, 36/+6 Implanted:Qt y: 1 on 07/11/2022 by Sami Angelo DO at OR [facility] Right: Shoulder 02/21/2025 313-0706 / / [id number] Screw Locking 4.5mm 20mm - [id number] Implanted:Qt y: 1 on 07/11/2022 by Sami Angelo DO at OR [facility] Right: Shoulder [employer] 03/24/2027 108-4520 [...] Agents on File Name Relationship Healthcare Agent [facility] p Communication Donny Pace Spouse Health Care Agent Care Teams Rn Shift Mgr Relationship Specialty Start Date End Date Keagan Sanchez MD [address] [place] [id number] PCP - General Family Medicine 10/07/23 documented as of this encounter
--- OUTSIDE RECORDS SUMMARY | 2024-03-06 12:26 | External Medical Summary | Summary of Care ---
Author Name Unknown Organization [facility] Address [address] [place] [address] Phone [phone] Care Team Providers Care Counter Intelligence Agent Name Role Phone Keagan Jalloh MD Primary Care Provider [phone] Reason for Visit * Reason Onset Date Comments Med Request 01/29/2024 Sent My G 02/01 Encounter Details Date Type Department Care Team ([facility] Contact Info) Description 01/29/[address] [phone] Keagan Jalloh MD [address] [place] [id number] Med Request (Sent My G 02/01) Allergies Active Allergy Reactions Criticality Noted Date Comments Adhesive Tape 03/31/2023 Other Reaction(s): Tape- redness, paper tape/coban "ok", ENWQ-VOYDONT-WNBEN TAPE OK OR COBAN Clarithromycin High 03/31/2023 [...] Oral Tablet (Zetia)Indicatio ns: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 Womack Followed by [facility] [place] cardiology, Angela Littlejohn, next appt May 2024 [...] P R, 30MCG/0.3ML, IM, 12YRS AND ABOVE ([facility]) 12/11/2023 COVID-19, mRNA, LNP-s, PF, B [...] the patient. Thank you, Sarah Childress CPhT Management Scientist II [facility] ([facility]) 01/29/2024,3:49 PM documented in this encounter Plan of Treatment Upcoming Encounters Date Type Department Care Team (Late st Contact Info) Description 02/02/2024 12:30 PM EST Home Visit [facility] [address] [place] [address] Nika Guevara RN [address] [place] [address] 02/11/2024 10:30 AM EST Telemedicine [facility] [address] [place] [address] Oriana Isaacs PA-C [address] [place] [address] Edith Garcia, Community Health Manufacturing Teacher [address] [place] [address] 06/07/2024 11:00 AM EDT Office Visit Cardiology [address] [place] [address] Angela Littlejohn CRNP [address] [place] [address] 06/21/2024 10:40 AM EDT Office Visit Family [address] [phone] Keagan Jalloh MD [address] [place] [address] 08/09/2024 10:00 AM EDT Office Visit Orthopaedics Andrez Alejandre [address] [place] [address] Sami Angelo DO [address] [place] [address] 10/07/2024 2:40 PM EDT Office Visit Dermatology [facility] [address] [place] [phone] Alden Ann PA-C [address] [place], [place] [phone] 11/25/2024 11:00 AM EDT Office Visit Neurology [facility] [address] [place] [address] Kelly Waddell PA-C [address] [place] [address] Scheduled Procedures Name Priority Associated Diagnoses Date/Ti [...] D LEVEL ONCE IN A LIFETIME-USE SMARTSET# [id number] Completed 01/28/2022, 02/21/2015, 12/30/2011 RETIRED - COLONOSCOPY-EVERY [...] this encounter Medical Devices Implanted Type Area Special Crimes Investigator Device Identifier Shelf Expiration Date Model / Serial / Lot Medtronic-05/27/2023 Implanted: (Quantity not on file) Neurostimulator [employer] : NEUROLOGIC PAIN 05/26/2049 [id number] / / [id number] Screw Jami Lacie 3 Ti Set - [id number] Implanted:Qt y: 6 on 03/10/2012 at [place] [facility] [place] Bilateral : Spine Lumbar LEVON : SPINE [id number] / / Screw Lacie Pa Ti 6.5x50mm - [id number] Implanted:Qt y: 4 on 03/10/2012 at [place] [facility] [place] Bilateral : Spine Lumbar LEVON : SPINE [id number] / / [place] Xia3 7.0 X 40mm Screws Implanted:Qt y: 2 on 03/10/2012 at [facility] Bilateral : Spine Lumbar [id number] / / Shaun Lacie 3 Ti 6x70mm - [id number] Implanted:Qt y: 1 on 03/10/2012 at OR [facility] N/A: Spine Lumbar LEVON : SPINE [id number] / / Shaun Lacie 3 Ti Max 6x80mm - [id number] Implanted:Qt y: 1 on 03/10/2012 at [place] [facility] N/A: Spine Lumbar LEVON : SPINE [id number] / / 9 X 25 X 4 - 8 Avs Wedge Nose Cage Implanted:Qt y: 1 on 03/10/2012 at [place] [facility] [place] [place] N/A: Spine Lumbar [id number] / / Stent Synergy Xd Mr 2.82y94lo - [id number] Implanted:Qt y: 1 on 09/20/2020 at [facility]AC [facility] [employer] [id number] 04/18/2022 [id number] / / [id number] Stent Synergy Xd Mr 2.07o88go - [id number] Implanted:Qt y: 1 on 09/20/2020 at [facility]ARDIAC [facility] [employer] [id number] 04/25/2022 [id number] / / [id number] Screw Locking 4.5mm 15mm - [id number] Implanted:Qt y: 1 on 07/11/2022 by Sami Angelo DO at [place] [facility] [place] Right: Shoulder [employer] 11/22/2025 108-4515 / / [id number] Bseplate Jasmeet Cmntlss W Scrw - [id number] Implanted:Qt y: 1 on 07/11/2022 by Sami Angelo DO at [place] [facility] Right: Shoulder [employer] 03/24/2027 105-0029 / / [id number] [place] Rev Thee W Scrw - [id number] Implanted:Qt y: 1 on 07/11/2022 by Sami Angelo DO at [place] [facility] [place] Right: Shoulder [employer] 04/24/2027 105-3610 / / [id number] Screw Locking 4.5mm 15mm - [id number] Implanted:Qt y: 1 on 07/11/2022 by Sami Angelo DO OR [facility] Right: Shoulder [employer] 03/24/2027 108-4515 / / [id number] Screw Locking 4.5mm 20mm - [id number] Implanted:Qt y: 1 on 07/11/2022 by Sami Angelo DO OR [facility] [place] [place] Right: Shoulder [employer] 03/24/2027 108-4520 / / [id number] [place] Ii Stem Ta6v Size 12 Cementless Implanted:Qt y: 1 on 07/11/2022 by Sami Angelo DO OR [facility] Right: Shoulder [employer] 10/22/2026 [id number] / / [id number] Cortical Screw Ta6v, 5mm, L. 24mm Implanted:Qt y: 1 on 07/11/2022 by Sami Angelo DO OR [facility] [place] Right: Shoulder [employer] 09/22/2023 107-4524 / / [id number] Humeral Cup 135/145 Degree, Standard, 36/+6 Implanted:Qt y: 1 on 07/11/2022 by Sami Angelo DO OR [facility] Right: Shoulder 02/21/2025 [id number] / / [id number] Screw Locking 4.5mm 20mm - [id number] Implanted:Qt y: 1 on 07/11/2022 by Sami Angelo DO OR [facility] Right: Shoulder [employer] 03/24/2027 108-4520 / / [id number] documented as of this encounter Visit Diagnoses Diagnosis Personal history of fall- Primary Coronary artery disease involving chenega coronary artery of chenega heart without angina pectoris- Primary Atrial flutter, [...] Agents on File Name Relationship Healthcare Agent [facility] p Communication Donny Pace Spouse Health Care Agent Care Teams Counter Intelligence Agent Relationship Specialty Start Date End Date Keagan Jalloh MD [address] [place] [address] PCP - General Family Medicine 10/07/23 documented as of this encounter
--- OUTSIDE RECORDS SUMMARY | 2024-03-06 12:27 | External Medical Summary | Summary of Care ---
Author Name Unknown Organization [facility] Address [address] [place] [address] Phone [phone] Care Team Providers Care Supply Planner Name Role Phone Keagan Sanchez MD Primary Care Provider [phone] Reason for Visit * Reason Comments Outpatient Testing Encounter Details Date Type Department Care Team (Late st Contact Info) Description 01/08/2024 2:00 PM EDT Laboratory Laboratory, [facility] [address] [place] [phone] [facility] [address] [place] [address] Left lower quadrant pain; Chronic constipation; Gastroparesis; Gastroesophageal reflux disease without esophagitis; Nonalcoholic fatty liver disease; Abnormal LFTs; Drug-induced acute pancreatitis without infection or necrosis; Abdominal pain, epigastric; Chronic superficial gastritis without bleeding Allergies Active Allergy Reactions Criticality Noted Date Comments Adhesive Tape 03/31/2023 Other Reaction(s): Tape- redness, paper tape/coban "ok", [id number] TAPE OK OR COBAN Clarithromycin High 03/31/2023 Other Reaction(s): Rash, diarrhea, RASH,DIARRHEA Duloxetine Hcl Flushing,Nausea/vomi tin g High 10/20/2019 Erythromycin Base Rash 03/14/2004 Orlistat Low 03/31/2023 Other Reaction(s): GI UPSET Penicillins Rash 03/14/2004 Prednisone Other (Please comment) High 10/10/2023 pancreatitis Sulfa Antibiotics Rash 03/14/2004 documented as of this encounter (statuses as of 01/08/2024) Medications Medication Sig Dispensed Refills Start Date End Date Status Cholecalciferol (VITAMIN D) 1000 UNIT Capsule Take 1 Cap by mouth daily. 30 Cap 11 03/09/2015 Active Aspirin 81 MG Oral Tablet Chewable Take 1 Tab by mouth daily. 30 Tab 11 02/27/2020 Active Atorvastatin Calcium 80 MG Oral Tablet (Lipitor) TAKE ONE TABLET BY MOUTH EVERY EVENING 90 Tablet 3 03/15/2023 03/14/2024 Active Nitroglycerin 0.4 MG Sublingual Tablet Sublingual (Nitrostat) Place 1 Tablet under the tongue every 5 minutes as needed for Pain, Chest. 25 Tablet 1 03/27/2023 Active Additional Information Patient not taking.Reported on 12/22/2023 amLODIPine Besylate 5 MG Oral Tablet (Norvasc) TAKE ONE TABLET BY MOUTH IN THE MORNING 90 Tablet 3 05/26/2023 05/25/2024 Active Levalbuterol HCl 1.25 MG/3ML Inhalation Nebulization Solution (Xopenex)Indicatio ns:Acute cough,Shortness of breath,Bronchitis Inhale 1 Ampule via nebulizer every 4 hours as needed for Wheezing. 72 mL 12 08/15/2023 Active Additional Information Patient not taking.Reported on 01/08/2024 Metoprolol Succinate ER 25 MG Oral Tablet Extended Release 24 Hour (toPROL XL)Indications:Atr ial flutter, unspecified type (HCC) TAKE ONE TABLET BY MOUTH IN THE MORNING. 90 Tablet 3 08/28/2023 08/27/2024 Active Levalbuterol Tartrate 45 MCG/ACT Inhalation Aerosol (Xopenex HFA)Indications:Sh ortness of breath,Bronchitis, complicated Inhale 2 Puffs by mouth every 4 hours as needed for Wheezing. 15 g 12 09/09/2023 Active Additional Information Patient not taking.Reported on 01/08/2024 hydrOXYzine HCl 50 MG Oral Tablet Take 1 Tablet by mouth 3 times a day as needed for Anxiety (hyperventilation ). 30 Tablet 09/12/2023 Active Sertraline HCl 100 MG Oral Tablet (Zoloft) 09/23/2023 Active metFORMIN HCl 500 MG Oral Tablet (Glucophage) Take 1 Tablet by mouth 2 times a day with morning and evening meals. 60 Tablet 4 11/06/2023 Active Ezetimibe 10 MG Oral Tablet (Zetia)Indications :Coronary artery disease involving mashpee coronary artery of mashpee heart with unstable angina pectoris (HCC) TAKE ONE TABLET BY MOUTH EVERY MORNING 90 Tablet 3 11/07/2023 11/06/2024 Active Levothyroxine Sodium 112 MCG Oral Tablet (Levoxyl) TAKE 1 TABLET BY MOUTH DAILY AT LEAST 30 MINUTES PRIOR TO FIRST MEAL OF THE DAY OR OTHER MEDICATIONS 90 Tablet 1 11/21/2023 11/20/2024 Active Topiramate 25 MG Oral Tablet (topAMAX) Take 2 tablets by mouth nightly 180 Tablet 2 11/25/2023 Active Amitriptyline HCl 50 MG Oral Tablet [...] 1 Tablet before bedtime. 90 Tablet 2 12/19/2023 Active Additional Information Patient not taking.Reported on 12/29/2023 Diclofenac Sodium 50 MG Oral Tablet Delayed Release (Voltaren) Take 1 Tablet by mouth in the morning and 1 Tablet before bedtime. 60 Tablet 2 12/19/2023 Active Gabapentin 600 MG Oral Tablet (Neurontin)Indicat ions:DDD (degenerative disc disease), cervical,Postlamin ectomy syndrome, lumbar Take 2 tabs in morning, 2 tabs at lunch and 2 tabs at night 180 Tablet 5 12/25/2023 Active Metoclopramide HCl 10 MG Oral Tablet (Reglan) Take 1 Tablet by mouth 3 times a day. 270 Tablet 01/04/2024 Active traMADol HCl 50 MG Oral Tablet (Ultram) Take 1 Tablet by mouth every 6 hours as needed for Pain, Moderate. 15 Tablet 01/02/2024 Active Baclofen 20 MG Oral Tablet Take 1 Tablet by mouth 4 times a day. 360 Tablet 01/04/2024 Active Sucralfate 1 GM Oral Tablet (Carafate)Indicati ons:Left lower quadrant pain,Chronic constipation,Gastr oparesis,Gastroeso phageal reflux disease without esophagitis,Nonalc oholic fatty liver disease,Abnormal LFTs,Drug-induced acute pancreatitis without infection or necrosis,Abdominal pain, epigastric,Chronic superficial gastritis without bleeding Take 1 Tablet by mouth in the morning and 1 Tablet at noon and 1 Tablet before bedtime. 180 Tablet 3 01/08/2024 Active Lubiprostone 24 MCG Oral Capsule (Amitiza)Indicatio ns:Left lower quadrant pain,Chronic constipation,Gastr oparesis,Gastroeso phageal reflux disease without esophagitis,Nonalc oholic fatty liver disease,Abnormal LFTs,Drug-induced acute pancreatitis without infection or necrosis,Abdominal pain, epigastric,Chronic superficial gastritis without bleeding Take 1 Capsule by mouth 2 times a day with morning and evening meals. 200 Capsule 3 01/08/2024 Active Pantoprazole Sodium 40 MG Oral Tablet Delayed Release (Protonix)Indicati ons:Left lower quadrant pain,Chronic constipation,Gastr oparesis,Gastroeso phageal reflux disease without esophagitis,Nonalc oholic fatty liver disease,Abnormal LFTs,Drug-induced acute pancreatitis without infection or necrosis,Abdominal pain, epigastric,Chronic superficial gastritis without bleeding Take 1 tablet by mouth twice per day for 14 days then reduce to 1 tablet daily 90 Tablet 3 01/08/2024 Active Famotidine 20 MG Oral Tablet (Pepcid)Indication s:Left lower quadrant pain,Chronic constipation,Gastr oparesis,Gastroeso phageal reflux disease without esophagitis,Nonalc oholic fatty liver disease,Abnormal LFTs,Drug-induced acute pancreatitis without infection or necrosis,Abdominal pain, epigastric,Chronic superficial gastritis without bleeding Take 2 Tablets by mouth at bedtime. 60 Tablet 11 01/08/2024 Active documented as of this encounter (statuses as of 01/08/2024) Active Problems Problem Noted Date Diagnosed Date Atrial flutter 12/09/2023 Last Assessment & Plan: Metoprolol 25mg daily Drug-induced acute pancreati tis without infection or necrosis 08/24/2023 Last Assessment & Plan: Reglan 10mg daily TID Anxiety and depression 08/24/2023 Last Assessment & Plan: Sertraline 100mg daily Hydroxyzine 50mg TID prn anxiety Coronary artery disease due to lipid rich plaque 08/24/2023 Neurostimulator device in situ 06/30/2023 Essential (primary) hypertension 06/16/2023 Hypothyroidism 06/16/2023 Last Assessment & Plan: Levothyroxine 112mcg daily Prediabetes 03/03/2023 Overview: Per Prediabetes protocol Last Assessment & Plan: Metformin 500mg BID Checks BSG twice per week. Never experiences lows Urinary retention 10/29/2022 Abdominal pain 10/28/2022 Diverticulitis 10/28/2022 Last Assessment & Plan: Has upcoming GI appt Hypokalemia 10/28/2022 S/P reverse total shoulder arthroplasty, right 0 07/16/2022 Age-related osteoporosis wit hout current pathological fracture 03/05/2022 Last Assessment & Plan: Cholecalciferol 1000mg daily Personal history of fall 06/11/2021 Last Assessment & Plan: 60-year-old female who had fallen last week [...] hypothyroidism 04/12/2021 Coronary artery disease invo lving mashpee coronary artery of mashpee heart without angina pectoris 09/27/2020 Last Assessment & Plan: Has 3 stents (2 in LAD one in diagonal), placed at [facility] [address] Womack Followed by [facility] cardiology, Angela Littlejohn, next appt May 2024 Has current NTG On Metoprolol 25mg daily, Lipitor 80mg daily and ASA 81mg S/P angioplasty with stent 09/27/2020 Status post insertion of chari g-eluting stent into left anterior descending (LAD) artery 02/26/2020 Gastro-esophageal reflux disease without esophag itis 10/04/2019 Last Assessment & Plan: Protonix 40mg daily Pepcid 20mg daily Carafate 1gm BID Mixed hyperlipidemia 10/04/2019 Major depressive disorder, single episode, unspe cified 10/04/2019 Lumbar radiculopathy 04/23/2019 Spinal stenosis of lumbar region 04/23/2019 MEDICATION USE AGREEMENT 03/01/2019 Chronic superficial gastritis without bleeding 0 06/06/2018 Hypotonic bladder 01/18/2014 Postlaminectomy syndrome, lumbar 07/31/2010 Dyslipidemia, goal to be determined 03/08/2009 Overview: Per Lipid Taxonomy. Last Assessment & Plan: Lipitor 80mg daily DDD (degenerative disc disease), cervical 2008 Degeneration of lumbosacral intervertebral disc 2008 Thoracic and lumbosacral neuritis 2008 Lumbosacral spondylosis 2008 Displacement of lumbar inter vertebral disc without myelopathy 2008 Gastroparesis 04/04/2008 Other specified gastritis without mention of hem orrhage 03/29/2008 Overview: mod chronic gastritis Migraine with aura and witho ut status migrainosus, not intractable 03/14/2004 Adjustment disorder with depressed mood Anxiety states Overview: ICD-10 update of inactive term documented as of this encounter (statuses as of 01/08/2024) Resolved Problems Problem Noted Date Diagnosed Date Resolved Date Dyslipidemia 08/24/2023 10/28/2023 Overview: duplicate Recurrent major depressive disorder 12/15/2021 04/07/2023 Epigastric pain 05/01/2021 07/16/2022 Unstable angina 09/19/2020 06/16/2023 NSTEMI (non-ST elevated myoc ardial infarction) 02/26/2020 02/26/2020 Acute viral syndrome 06/06/2018 019 Overview: Acute condition Cauda equina syndrome 06/05/20172019 Myalgia and myositis, unspecified 06/18/2012 07/16/2022 Inflammation of sacroiliac joint 07/31/2010 10/04/2019 Vertebral fracture, pathological 08/30/2009 12/17/2018 Overview: No longer current Lumbago 2008 07/16/2022 Dyslipidemia, goal LDL below 160 04/04/2008 03/08/2009 Overview: Per Lipid Taxonomy. Chest pain 02/27/2007 07/16/2022 Overview: Acute condition ADVANCE DIRECTIVE INFORMATION 08/13/2005 09/27/2020 Overview: No, Advance Directive brochure offered , patient declined. Mixed dyslipidemia 03/14/2004 9 Overview: Per Lipid Taxonomy Hypothyroidism 03/14/2004 03/28/2023 Overview: A more specified Dx is now on the PL Colitis, acute 07/16/2022 Overview: Acute condition Ulcerative colitis, unspecified 04/21/2008 Herpetic vulvovaginitis 06/23 documented as of this encounter (statuses as of 01/08/2024) Immunizations Name Administration Dates Next Due COVID-19 [...] ages 0-17 years) Not on file 12/20/2023 Sex and Gender Information Value Date Recorded Sex Assigned at Female 05/17/2020 2:50 PM EST Gender Identity Female 05/17/2020 2:50 PM EST Sexual Orientation Straight 05/17/2020 2: 50 PM EST Job Start Date Occupation Industry Not on file Not on file Not on file documented as of this encounter Functional Status Functional Status Response Date of Assess ment Are you deaf or do you have serious difficulty hearing? No 08/24/2023 Are you blind or do you have serious difficulty seeing, even when wearing glasses? No 08/24/19 Do you have serious difficul ty walking or climbing stairs? (5 years old or older) Yes-stairs 08/24/2023 Do you have difficulty dress ing or bathing? (5 years old or older) No 08/24/2023 Because of a physical, menta l, or emotional condition, do you have difficulty doing errands alone such as visiting a doctor s office or shopping? (15 years old or older) Yes-pt doesnt drive 08/24/19 24 Cognitive Status Response Date of Assessm ent Because of a physical, menta l, or emotional condition, do you have serious difficulty concentrating, remembering, or making decisions? (5 years old or older) No 08/24/2023 documented as of this encounter Plan of Treatment Upcoming Encounters Date Type Department Care Team (Late st Contact Info) Description 01/14/2024 10:30 AM EDT Appointment Radiology, [facility] [address] [place] [phone] 01/22/2024 1:00 PM EDT Appointment Radiology [address] [place] [address] [address] [place] [address] 02/02/2024 12:30 PM EST Home Visit [facility], [facility] [address] [place] [address] Nika Guevara RN [address] [place] [address] 02/05/2024 1:30 PM EST Office Visit [facility], [facility] [address] [facility] [place] [place] [address] Rachael Tavarez CRNP [address] [place] [address] 02/11/2024 10:30 AM EST Telemedicine [facility], [facility] [address] [place] [address] Oriana Isaacs PA-C [address] [place] [address] Edith Garcia, Community Health Psychology Assistant [address] [place] [address] 06/07/2024 11:00 AM EDT Office Visit Cardiology [facility] [address] [facility] [address] [place] [address] Angela Littlejohn CRNP [address] [place] [address] 06/21/2024 10:40 AM EDT Office Visit Family Practice [facility] [address] [place] [phone] Keagan Sanchez MD [address] [place] [address] 08/09/2024 10:00 AM EDT Office Visit Orthopaedics [facility] [address] [place] [address] Sami Angelo DO [address] [place] [address] 10/07/2024 2:40 PM EDT Office Visit Dermatology [facility] [address] [place] [address] Alden Ann PA-C [address] [place] [address] 11/25/2024 11:00 AM EDT Office Visit Neurology [facility] [address] [place] [address] Kelly Waddell PA-C [address] [facility] [address] [place] [phone] Pending Results Name Type Priority Associated Diagnoses Date /Time MAGNESIUM Lab Routine Left lower quadrant pain Chronic constipation Gastroparesis Gastroesophageal reflux disease without esophagitis Nonalcoholic fatty liver disease Abnormal LFTs Drug-induced acute pancreatitis without infection or necrosis Abdominal pain, epigastric Chronic superficial gastritis without bleeding 01/08/2024 1:51 PM EDT VITAMIN B12 Lab Routine Left lower quadrant pain Chronic constipation Gastroparesis Gastroesophageal reflux disease without esophagitis Nonalcoholic fatty liver disease Abnormal LFTs Drug-induced acute pancreatitis without infection or necrosis Abdominal pain, epigastric Chronic superficial gastritis without bleeding 01/08/2024 1:51 PM EDT TISSUE TRANSGLUTAMINASE IGA ANTIBODY Lab Routine Left lower quadrant pain Chronic constipation Gastroparesis Gastroesophageal reflux disease without esophagitis Nonalcoholic fatty liver disease Abnormal LFTs Drug-induced acute pancreatitis without infection or necrosis Abdominal pain, epigastric Chronic superficial gastritis without bleeding 01/08/2024 1:51 PM EDT IGA Lab Routine Left lower quadrant pain Chronic constipation Gastroparesis Gastroesophageal reflux disease without esophagitis Nonalcoholic fatty liver disease Abnormal LFTs Drug-induced acute pancreatitis without infection or necrosis Abdominal pain, epigastric Chronic superficial gastritis without bleeding 01/08/2024 1:51 PM EDT TSH WITH FREE T4 IF INDICATED Lab Routine Left lower quadrant pain Chronic constipation Gastroparesis Gastroesophageal reflux disease without esophagitis Nonalcoholic fatty liver disease Abnormal LFTs Drug-induced acute pancreatitis without infection or necrosis Abdominal pain, epigastric Chronic superficial gastritis without bleeding 01/08/2024 1:51 PM EDT Scheduled Procedures Name Priority Associated Diagnoses Date/Ti [...] 01/02/2024 01/01/2022, 02/22, 12/09/2011, Additional history exists Mammogram 04/24/2024 04/24/2023, 03/2023, 04/24/2023, Additional history exists HbA1c 07/16/2024 07/17/2023, 01/23, 09/20/2020, Additional history exists TSH 12/23/2024 12/24/2023, 06/23, 10/30/2022, Additional history exists GFR 01/01/2025 01/02/2024, 06/2023, 12/24/2023, Additional history exists DTap/Tdap Vaccines (3 - Td or Tdap) 10/10/2026 10/10/2016, 10/26/2005 Albumin/Creatinine Ratio 12/21/2026 12/22/2023 Colonoscopy 04/18/2027 04/18/2022, 03/25, 08/10/2013, Additional history exists Colorectal Cancer Screening 04/18/2027 VITAMIN D LEVEL ONCE IN A LIFETIME-USE SMARTSET# [id number] Completed 01/28/2022, 02/21/2015, 12/30/2011 RETIRED - COLONOSCOPY-EVERY 5 YRS AGES 18-100 Discontinued 04/18/2022, 04/18/2022, 08/10/2013, Additional history exists Influenza Vaccine (FLU shot) Completed 11/25/2023, 01/21/2023, 12/03/2021, Additional history exists COVID-19 Vaccine Completed 12/11/2023, 05/2021, 07/11/2021, Additional history exists HPV (Gardasil) Vaccine Aged [...] this encounter Medical Devices Implanted Type Area Reliability Specialist Device Identifier Shelf Expiration Date Model / Serial / Lot Medtronic-05/27/2023 Implanted: (Quantity not on file) Neurostimulator [employer] : NEUROLOGIC PAIN 05/26/2049 [id number] / / [id number] Screw Jami Lacie 3 Ti Set - [id number] Implanted:Qt y: 6 on 03/10/2012 at OR [facility] Bilateral : Spine Lumbar LEVON : SPINE [id number] / / Screw Lacie Pa Ti 6.5x50mm - [id number] Implanted:Qt y: 4 on 03/10/2012 at OR [facility] Bilateral : Spine Lumbar LEVON : SPINE [id number] / / [place] Xia3 7.0 X 40mm Screws Implanted:Qt y: 2 on 03/10/2012 at OR [facility] Bilateral : Spine Lumbar [id number] / / Shaun Lacie 3 Ti 6x70mm - [id number] Implanted:Qt y: 1 on 03/10/2012 at OR [facility] N/A: Spine Lumbar LEVON : SPINE [id number] / / Shaun Lacie 3 Ti Max 6x80mm - [id number] Implanted:Qt y: 1 on 03/10/2012 at OR [facility] N/A: Spine Lumbar LEVON : SPINE [id number] / / 9 X 25 X 4 - 8 Avs Wedge Nose Cage Implanted:Qt y: 1 on 03/10/2012 at OR [facility] N/A: Spine Lumbar [id number] / / Stent Synergy Xd Mr 2.95w83mp - [id number] Implanted:Qt y: 1 on 09/20/2020 at CARDIAC LABS [facility] IQuum [id number] 04/18/2022 [id number] / / [id number] Stent Synergy Xd Mr 2.56z83lw - [id number] Implanted:Qt y: 1 on 09/20/2020 at [facility]ARDI[facility]S [facility] IQuum [id number] 04/25/2022 [id number] / / [id number] Screw Locking 4.5mm 15mm - [id number] Implanted:Qt y: 1 on 07/11/2022 by Sami Angelo DO at OR [facility] Right: Shoulder [employer] 11/22/2025 108-4515 / / [id number] Bseplate Jasmeet Cmntlss W Scrw - [id number] Implanted:Qt y: 1 on 07/11/2022 by Sami Angelo DO at OR [facility] Right: Shoulder [employer] 03/24/2027 105-0029 / / [id number] Glenosphere Rev Thee W Scrw - [id number] Implanted:Qt y: 1 on 07/11/2022 by Sami Angelo DO at OR [facility] Right: Shoulder [employer] 04/24/2027 105-3610 / / [id number] Screw Locking 4.5mm 15mm - [id number] Implanted:Qt y: 1 on 07/11/2022 by Sami Angelo DO at OR [facility] Right: Shoulder [employer] 03/24/2027 108-4515 / / [id number] Screw Locking 4.5mm 20mm - [id number] Implanted:Qt y: 1 on 07/11/2022 by Sami Angelo DO at OR [facility] Right: Shoulder [employer] 03/24/2027 108-4520 / / [id number] Humelock Ii Stem Ta6v Size 12 Cementless Implanted:Qt y: 1 on 07/11/2022 by Sami Angelo DO at OR [facility] Right: Shoulder [employer] 10/22/2026 [id number] / / [id number] Cortical Screw Ta6v, 5mm, L. 24mm Implanted:Qt y: 1 on 07/11/2022 by Sami Angelo DO at OR [facility] Right: Shoulder [employer] 09/22/2023 107-4524 / / [id number] Humeral Cup 135/145 Degree, Standard, 36/+6 Implanted:Qt y: 1 on 07/11/2022 by Sami Angelo DO at OR [facility] Right: Shoulder 02/21/2025 313-0706 / / [id number] Screw Locking 4.5mm 20mm - [id number] Implanted:Qt y: 1 on 07/11/2022 by Sami Angelo DO at OR [facility] Right: Shoulder [employer] 03/24/2027 108-4520 / / [id number] documented as of this encounter Visit Diagnoses Diagnosis Left lower quadrant pain Abdominal pain, left lower quadrant Chronic constipation Unspecified constipation Gastroparesis Gastroesophageal reflux disease without esophagitis Esophageal reflux Nonalcoholic fatty liver disease Other chronic nonalcoholic liver disease Abnormal LFTs Other abnormal blood chemistry Drug-induced acute pancreatitis without infection or necrosis Abdominal pain, epigastric Chronic superficial gastritis without bleeding Atrophic gastritis without mention of hemorrhage documented in this encounter Advance Directives * [...] Agents on File Name Relationship Healthcare Agent [facility] p Communication Donny Pace Spouse Health Care Agent Care Teams Supply Planner Relationship Specialty Start Date End Date Keagan Sanchez MD [address] [place] [id number] PCP - General Family Medicine 10/07/23 documented as of this encounter
--- OUTSIDE RECORDS SUMMARY | 2024-03-06 12:27 | External Medical Summary ---
Author Name Unknown Address Unknown Organization [id number]:[facility] [address] [address] Laboratory Report Ordering Provider Test Date Status HILARIA HERNANDEZ 01/08/2024 13:51:32 Final Observation Date Value Abnormality Reference (Units ) Status Tissue transglutaminase IgA Ab [Presence] in Serum by Immunoassay 01/08/2024 13:51:32 Negative Negative Final Tissue transglutaminase IgA Ab [Units/volume] in Serum by Immunoassay 01/08/2024 13:51:32 <0.2 <7 (U/mL) Final Performing Location [facility] [place] [address] [place] [address]
--- OUTSIDE RECORDS SUMMARY | 2024-03-06 12:27 | External Medical Summary ---
Author Name Unknown Address Unknown Organization [id number]:[facility]ORATORY [facility] [place] [address] [place] [address] Laboratory Report Ordering Provider Test Date Status HILARIA HERNANDEZ 01/08/2024 13:51:32 Final Observation Date Value Abnormality Reference (Units ) Status Magnesium 01/08/2024 13:51:32 2.2 1.5-2.6 (m g/dL) Final Performing Location LABORATORY [facility] - [address] [place] [address]
--- OUTSIDE RECORDS SUMMARY | 2024-03-06 12:27 | External Medical Summary ---
Author Name Unknown Address Unknown Organization [id number]:[facility] [place] [address] [place] [address] Laboratory Report Ordering Provider Test Date Status DAVIDHILARIA MARIE 01/08/2024 13:51:32 Final Observation Date Value Abnormality Reference (Units ) Status TSH 01/08/2024 13:51:32 1.82 0.27-4.20 (uIU/mL) Final Performing Location LABORATORY [facility] - [address] [place] [address]
--- OUTSIDE RECORDS SUMMARY | 2024-03-06 12:27 | External Medical Summary ---
Author Name Unknown Address Unknown Organization [id number]:LAB[facility]ATORY [facility] [place] - [address] [place] [address] Laboratory Report Ordering Provider Test Date Status HILARIA HERNANDEZ 01/09/2024 09:29:02 Final Observation Date Value Abnormality Reference (Units) Status Source 01/09/2024 09:29:02 Semi-liquid Final Clostridioides difficile toxin and [id number] strain DNA panel - Stool by JYOTI with probe detection 01/09/2024 09:29:02 Negative. No C. difficile toxin B gene DNA detected by PCR (Amplified Probe). Negative Final Performing Location LAB[facility]ATORY [facility] [place] - [address] [place] [address]
--- OUTSIDE RECORDS SUMMARY | 2024-03-06 12:27 | External Medical Summary | Summary of Care ---
Author Name Unknown Organization [facility] Address [address] [place] [address] Phone [phone] Care Team Providers Care Property Caretaker Name Role Phone Keagan Sanchez MD Primary Care Provider [phone] Reason for Visit * Reason Comments Outpatient Testing Encounter Details Date Type Department Care Team ([facility] st Contact Info) Description 01/09/2024 9:30 AM EDT [facility] [phone] [address] Left lower quadrant pain; Chronic constipation; Gastroparesis; Gastroesophageal reflux disease without esophagitis; Nonalcoholic fatty liver disease; Abnormal LFTs; Drug-induced acute pancreatitis without infection or necrosis; Abdominal pain, epigastric; Chronic superficial gastritis without bleeding Allergies Active Allergy Reactions Criticality Noted Date Comments Adhesive Tape 03/31/2023 Other Reaction(s): Tape- redness, paper tape/coban "ok", DWTW-LALAPVR-YBSOU TAPE OK OR COBAN Clarithromycin High 03/31/2023 Other Reaction(s): Rash, diarrhea, RASH,DIARRHEA Duloxetine Hcl Flushing,Nausea/vomi tin g High 10/20/2019 Erythromycin Base Rash 03/14/2004 Orlistat Low 03/31/2023 Other Reaction(s): GI UPSET Penicillins Rash 03/14/2004 Prednisone Other (Please comment) High 10/10/2023 pancreatitis Sulfa Antibiotics Rash 03/14/2004 documented as of this encounter (statuses as of 01/09/2024) Medications Medication Sig Dispensed Refills Start Date [...] Oral Tablet (Zetia)Indications :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 Womack Followed by [facility] [place]ology, Angela Littlejohn, next appt May 2024 [...] as of this encounter (statuses as of 01/09/2024) Resolved Problems Problem Noted Date Diagnosed Date [...] brochure offered , patient declined. Mixed dyslipidemia 03/14/200402/15/200 9 Overview: Per Lipid Taxonomy Hypothyroidism 03/14/2004 03/28/2023 Overview: A more specified Dx is now on the PL Colitis, acute 07/16/2022 Overview: Acute condition Ulcerative colitis, unspecified 04/21/2008 Herpetic vulvovaginitis 06/23 documented as of this encounter (statuses as of 01/09/2024) Immunizations Name Administration Dates Next Due COVID-19 mRNA, LNP-s, No Pre serve, 2-Dose Series (Moderna) 01/17/2021,05/23/2020,04/17/2020 COVID-19, MRNA-LNP, 24-25, P R, 30MCG/0.3ML, IM, 12YRS AND ABOVE [facility] 12/11/2023 COVID-19, mRNA, LNP-s, PF, B ooster, [...] Description 01/14/2024 10:30 AM EDT Appointment Radiology, [facility] [address] [place] [phone] 01/22/2024 1:00 PM EDT Appointment Radiology [address] [place] [address] [address] [place] [address] 02/02/2024 12:30 PM EST Home Visit [facility] [address] [place] [address] Nika Guevara RN [address] [facility] [place] [address] 02/05/2024 1:30 PM EST Office Visit Gastroenterology, [facility] [address] [facility] [place] [address] Rachael Tavarez CRNP [address] [place] [address] 02/11/2024 10:30 AM EST Telemedicine [facility] [address] [place] [address] Oriana Isaacs PA-C [address] [place] [address] Edith Garcia, Community Health Hides Inspector [address] [facility] [place] [address] 06/07/2024 11:00 AM EDT Office Visit Cardiology [facility] [address] [facility] [address] [place] [phone] Angela Littlejohn CRNP [address] [place] [address] 06/21/2024 10:40 AM EDT Office Visit Family Practice [facility] [address] [place] [phone] Keagan Sanchez MD [address] [place] [address] 08/09/2024 10:00 AM EDT Office Visit Orthopaedics [facility] [address] [place] [address] Sami Angelo DO [address] [place] [address] 10/07/2024 2:40 PM EDT Office Visit Dermatology [facility] [address] [place] [phone] Alden Ann PA-C [address] [place], [place] [id number] 11/25/2024 11:00 AM EDT Office Visit Neurology [facility] [address] [place] [address] Kelly Waddell PA-C [address] [facility] [id number] Pending Results Name Type Priority Associated Diagnoses Date /Time CLOSTRIDIUM DIFFICILE, PCR Lab Routine Left lower quadrant pain Chronic constipation Gastroparesis Gastroesophageal reflux disease without esophagitis Nonalcoholic fatty liver disease Abnormal LFTs Drug-induced acute pancreatitis without infection or necrosis Abdominal pain, epigastric Chronic superficial gastritis without bleeding 01/09/2024 9:29 AM EDT GASTROINTESTINAL PATHOGEN PANEL, STOOL Lab Routine Left lower quadrant pain Chronic constipation Gastroparesis Gastroesophageal reflux disease without esophagitis Nonalcoholic fatty liver disease Abnormal LFTs Drug-induced acute pancreatitis without infection or necrosis Abdominal pain, epigastric Chronic superficial gastritis without bleeding 01/09/2024 9:29 AM EDT GASTROINTESTINAL PATHOGEN PANEL PCR Lab Routine Left lower quadrant pain Chronic constipation Gastroparesis Gastroesophageal reflux disease without esophagitis Nonalcoholic fatty liver disease Abnormal LFTs Drug-induced acute pancreatitis without infection or necrosis Abdominal pain, epigastric Chronic superficial gastritis without bleeding 01/09/2024 9:29 AM EDT GASTROINTESTINAL PATHOGEN PANEL CULTURE Lab Routine Left lower quadrant pain Chronic constipation Gastroparesis Gastroesophageal reflux disease without esophagitis Nonalcoholic fatty liver disease Abnormal LFTs Drug-induced acute pancreatitis without infection or necrosis Abdominal pain, epigastric Chronic superficial gastritis without bleeding 01/09/2024 9:29 AM EDT Scheduled Procedures Name Priority Associated Diagnoses [...] D LEVEL ONCE IN A LIFETIME-USE SMARTSET# [id number] Completed 01/28/2022, 02/21/2015, 12/30/2011 RETIRED - COLONOSCOPY-EVERY [...] this encounter Medical Devices Implanted Type Area Senior Datastage Developer Device Identifier Shelf Expiration Date Model / Serial / Lot Medtronic-05/27/2023 Implanted: (Quantity not on file) Neurostimulator [employer] : NEUROLOGIC PAIN 05/26/2049 [id number] / / [id number] Screw Jami Alcie 3 Ti Set - [id number] Implanted:Qt y: 6 on 03/10/2012 at [facility] Bilateral : Spine Lumbar LEVON : SPINE [id number] / / Screw Lacie Pa Ti 6.5x50mm - [id number] Implanted:Qt y: 4 on 03/10/2012 at [place] [facility] Bilateral : Spine Lumbar LEVON : SPINE [id number] / / [place] Xia3 7.0 X 40mm Screws Implanted:Qt y: 2 on 03/10/2012 at [place] [facility] Bilateral : Spine Lumbar [id number] / / Shaun Lacie 3 Ti 6x70mm - [id number] Implanted:Qt y: 1 on 03/10/2012 at [place] [facility] N/A: Spine Lumbar LEVON : SPINE [id number] / / Shaun Lacie 3 Ti Max 6x80mm - [id number] Implanted:Qt y: 1 on 03/10/2012 at [place] [facility] N/A: Spine Lumbar LEVON : SPINE [id number] / / 9 X 25 X 4 - 8 Avs Wedge Nose Cage Implanted:Qt y: 1 on 03/10/2012 at [place] [facility] N/A: Spine Lumbar [id number] / / Stent Synergy Xd Mr 2.79k88ln - [id number] Implanted:Qt y: 1 on 09/20/2020 at [facility] Vantrix [id number] 04/18/2022 [id number] / / [id number] Stent Synergy Xd Mr 2.17c41bc - [id number] Implanted:Qt y: 1 on 09/20/2020 at [facility] V[employer] [id number] 04/25/2022 [id number] 2220 / / [id number] Screw Locking 4.5mm 15mm - [id number] Implanted:Qt y: 1 on 07/11/2022 by Sami Angelo DO at [facility] Right: Shoulder [employer] 11/22/2025 108-4515 / / [id number] Bseplate Jasmeet Cmntlss W Scrw - [id number] Implanted:Qt y: 1 on 07/11/2022 by Sami Angelo DO at [facility] Right: Shoulder [employer] 03/24/2027 105-0029 / / [id number] Glenosphere Rev Thee W Scrw - [id number] Implanted:Qt y: 1 on 07/11/2022 by Sami Angelo DO at [facility] Right: Shoulder [employer] 04/24/2027 105-3610 / / [id number] Screw Locking 4.5mm 15mm - [id number] Implanted:Qt y: 1 on 07/11/2022 by Sami Angelo DO at [place] [facility] Right: Shoulder [employer] 03/24/2027 108-4515 / / [id number] Screw Locking 4.5mm 20mm - [id number] Implanted:Qt y: 1 on 07/11/2022 by Sami Angelo DO at [facility] Right: Shoulder [employer] 03/24/2027 108-4520 / / [id number] Humelock Ii Stem Ta6v Size 12 Cementless Implanted:Qt y: 1 on 07/11/2022 by Sami Angelo DO at [facility] Right: Shoulder [employer] 10/22/2026 [id number] / / [id number] Cortical Screw Ta6v, 5mm, L. 24mm Implanted:Qt y: 1 on 07/11/2022 by Sami Angelo DO at [place] [facility] Right: Shoulder [employer] 09/22/2023 107-4524 / / [id number] Humeral Cup 135/145 Degree, Standard, 36/+6 Implanted:Qt y: 1 on 07/11/2022 by Sami Angelo DO at [facility] Right: Shoulder 02/21/2025 313-0706 / / [id number] Screw Locking 4.5mm 20mm - [id number] Implanted:Qt y: 1 on 07/11/2022 by Sami Angelo DO at [place] [facility] Right: Shoulder [employer] 03/24/2027 108-4520 [...] mention of hemorrhage documented in this encounter Additional Health Concerns Infection Onset Date Last Indicated Resolved Time C. difficile Rule-Out 01/09/2024 01/09/2024 Gastrointestinal Rule-Out 01/09/2024 01/09/2024 documented as of this encounter Advance Directives [...] Agents on File Name Relationship Healthcare Agent [facility] Communication Donny Pace Spouse Health Care Agent Care Teams Property Caretaker Relationship Specialty Start Date End Date Keagan Sanchez MD [address] [place] [address] PCP - General Family Medicine 10/07/23 documented as of this encounter
--- OUTSIDE RECORDS SUMMARY | 2024-03-06 12:27 | External Medical Summary ---
Author Name Unknown Address Unknown Organization K01:[facility] [address] [place] [address] Laboratory Report Ordering Provider Test Date Status HILARIA HERNANDEZ 01/08/2024 13:51:32 Final Observation Date Value Abnormality Reference (Units ) Status IgA 01/08/2024 13:51:32 116 70-400 (mg /dL) Final Performing Location [facility] [address] [place] [address]
--- OUTSIDE RECORDS SUMMARY | 2024-03-06 12:27 | External Medical Summary ---
Author Name Unknown Address Unknown Organization K01:[facility] [address] [facility] [address] [place] [address] Laboratory Report Ordering Provider Test Date Status CORINNE HERNANDEZISO 01/09/2024 09:29:09 Final Observation Date Value Abnormality Reference (Units) Status Bacteria identified in Specimen by Culture 01/09/2024 09:29:09 No Aeromonas species or Plesiomonas species isolated. Final Test: Gastrointestinal Patho gen Panel Culture
Specimen Source: Stool
Specimen Type: Stool
Specimen Date: 01/09/2024928
Result Date: 01/11/20241321
Result Status: Final result
Resulting Lab: [facility]
[address]
[place] [id number]

CULTURE

No Aeromonas species or Plesiomonas species isolated.

null Performing Location [facility] - [address] [place] [id number]
--- OUTSIDE RECORDS SUMMARY | 2024-03-06 12:27 | External Medical Summary | Summary of Care ---
Author Name Unknown Organization [facility] Address [address] [place] [address] Phone [phone] Care Team Providers Care Attorney Name Role Phone Keagan Sanchez MD Primary Care Provider [phone] Reason for Referral * Precert (Within 10 days (routine)) - Authorized Specialty Diagnoses / Procedures Referred By Lynn helton Referred To Contact Radiology Diagnoses Left lower quadrant pain Chronic constipation Gastroparesis Gastroesophageal reflux disease without esophagitis Nonalcoholic fatty liver disease Abnormal LFTs Drug-induced acute pancreatitis without infection or necrosis Abdominal pain, epigastric Chronic superficial gastritis without bleeding Procedures CT ABD/PELVIS W IV AND W ORAL CONTRAST Rachael Tavarez CRNP [address] [place] [address] Referral ID Status Reason Start Date Expiration Date V isits Requested Visits Authorized [id number] Authorized 01/08/2024 999 999 Reason for Visit * Reason Comments NEW PATIENT New pt ref by Dr Ariel dalal for LLQ pain. Pt states LLQ pain has subsided. Now having epigastric pain. Pt was in ED 11/[address] scan done and was dx with gastritis. Pt also having difficulty moving bowels.No bleeding/straining. Pt has neurogenic bladder. Can't feel when she urinates or has BM's. On Miralax and prune juice daily. Pt recently dx w/ ankylosing spondylitis. Pt currently has 8th R rib fracture due to a fall. * Evaluate & Treat - Unlimited Visits (Within 30 days (routine)) - Authorized Specialty Diagnoses / Procedures Referred By Lynn t Referred To Contact Gastroenterology Diagnoses Left lower quadrant abdominal pain Keagan Sanchez MD [address] [place] [address] Referral ID Status Reason Start Date Expiration Date Visits Requested Visits Authorized [id number] Authorized Specialty Services Required 11/28/2023 999 [id number] Encounter Details Date Type Department Care Team (Late st Contact Info) Description 01/08/2024 1:00 PM EDT Office Visit [facility], [facility] [address] [facility] [place] [id number] Rachael Tavarez CRNP [address] [place] [address] Nonalcoholic fatty liver disease*; Left lower quadrant pain; Chronic constipation; Gastroparesis; Gastroesophageal reflux disease without esophagitis; Abnormal LFTs; Drug-induced acute pancreatitis without infection or necrosis; Abdominal pain, epigastric; Chronic superficial gastritis without bleeding Allergies Active Allergy Reactions Criticality Noted Date Comments Adhesive Tape 03/31/2023 Other Reaction(s): Tape- redness, paper tape/coban "ok", [id number] TAPE OK OR COBAN Clarithromycin High 03/31/2023 [...] BY MOUTH EVERY EVENING 90 Tablet 3 3 03/14/20 24 Active Nitroglycerin 0.4 MG Sublingual Tablet Sublingual (Nitrostat) Place 1 Tablet under the tongue every 5 minutes as needed for Pain, Chest. 25 Tablet 1 4 Active Additional Information Patient not taking.Reported on 12/22/2023 amLODIPine Besylate 5 MG Oral Tablet (Norvasc) TAKE ONE TABLET BY MOUTH IN THE MORNING 90 Tablet 3 4 05/26/19 25 Active Levalbuterol HCl 1.25 [...] MOUTH IN THE MORNING. 90 Tablet 3 4 08/28/19 25 Active Levalbuterol Tartrate 45 MCG/ACT Inhalation Aerosol (Xopenex HFA)Indications: Shortness of breath,Bronchiti s, complicated Inhale 2 Puffs by mouth every 4 hours as needed for Wheezing. 15 g 12 4 Active Additional Information Patient not taking.Reported on 01/08/2024 hydrOXYzine HCl 50 MG Oral Tablet Take 1 Tablet by mouth 3 times a day as needed for Anxiety (hyperventilatio n). 30 Tablet 4 Active Sertraline HCl 100 MG Oral Tablet (Zoloft) 4 Active metFORMIN HCl 500 MG Oral Tablet (Glucophage) Take 1 Tablet by mouth 2 times a day with morning and evening meals. 60 Tablet 4 4 Active Ezetimibe 10 MG Oral Tablet (Zetia)Indicatio ns:Coronary artery disease involving [place] coronary artery of [place] heart with unstable angina pectoris (HCC) TAKE ONE TABLET BY MOUTH EVERY MORNING 90 Tablet 3 4 11/07/19 25 Active Levothyroxine Sodium 112 MCG Oral Tablet (Levoxyl) TAKE 1 TABLET BY MOUTH DAILY AT LEAST 30 MINUTES PRIOR TO FIRST MEAL OF THE DAY OR OTHER MEDICATIONS 90 Tablet 1 4 11/21/19 25 Active Topiramate 25 MG [...] mouth 3 times a day. 270 Tablet 4 Active traMADol HCl 50 MG Oral Tablet (Ultram) Take 1 Tablet by mouth every 6 hours as needed for Pain, Moderate. 15 Tablet 4 Active Baclofen 20 MG Oral Tablet Take 1 Tablet by mouth 4 times a day. 360 Tablet 4 Active Sucralfate 1 GM Oral Tablet (Carafate)Indica tions:Left lower quadrant pain,Chronic constipation,Gas troparesis,Gastr oesophageal reflux disease without esophagitis,Christal lcoholic fatty liver disease,Abnormal LFTs,Drug-induce d acute pancreatitis without infection or necrosis,Abdomin al pain, epigastric,Chron ic superficial gastritis without bleeding Take 1 Tablet by mouth in the morning and 1 Tablet at noon and 1 Tablet before bedtime. 180 Tablet 3 4 Active Lubiprostone 24 MCG Oral Capsule (Amitiza)Indicat ions:Left lower quadrant pain,Chronic constipation,Gas troparesis,Gastr oesophageal reflux disease without esophagitis,Christal lcoholic fatty liver disease,Abnormal LFTs,Drug-induce d acute pancreatitis without infection or necrosis,Abdomin al pain, epigastric,Chron ic superficial gastritis without bleeding Take 1 Capsule by mouth 2 times a day with morning and evening meals. 200 Capsule 3 4 Active Pantoprazole Sodium 40 MG Oral [...] ic superficial gastritis without bleeding Take 2 Tablets by mouth at bedtime. 60 Tablet 11 4 Active Sennosides (SENNA) 8.6 MG Tablet TAKE 2 TABLETS BY MOUTH DAILY NEEDED FOR CONSTIPATION. 60 Tab 5 6 01/08/20 24 Discontinued(Me dication/Dose Changed) Pantoprazole Sodium 40 MG Oral Tablet Delayed Release (Protonix) TAKE ONE TABLET BY MOUTH EVERY DAY 30 MNUTES PRIOR TO FIRST MEAL OF THE DAY, DO NOT CRUSH SPLIT OR CHEW TABLET 90 Tablet 3 3 01/08/20 24 Discontinued(Re fill) Sucralfate 1 GM Oral Tablet (Carafate) TAKE ONE TABLET BY MOUTH IN THE MORNING AND TAKE ONE TABLET BEFORE BEDTIME 180 Tablet 3 4 01/08/20 24 Discontinued Famotidine 20 MG Oral Tablet (Pepcid)Indicati ons:Abdominal pain, epigastric,Chron ic superficial gastritis without bleeding Take 1 Tablet by mouth in the morning and 1 Tablet before bedtime. 60 Tablet 11 4 01/08/20 24 Discontinued Lactulose 10 GM/15ML Oral Solution (Constulose) Take 15 mL by mouth 2 times a day as needed for Constipation. severe constipation 237 mL 1 4 01/08/20 24 Discontinued(Me dication List Clean Up) Polyethylene Glycol 3350 17 GM Oral Packet (MiraLax) Take 1 Packet by mouth in the morning. 01/08/20 24 Discontinued(Me dication/Dose Changed) documented as of this encounter (statuses as [...] hypothyroidism 04/12/2021 Coronary artery disease invo lving [place] coronary artery of [place] heart without angina pectoris 09/27/2020 Last Assessment & Plan: Has 3 stents (2 in LAD one in diagonal), placed at [facility] [address] Womack Followed by [facility] cardiology, Angela Littlejohn, next appt [...] P R, 30MCG/0.3ML, IM, 12YRS AND ABOVE (Pfizer-Comirnat) 12/11/2023 COVID-19, mRNA, LNP-s, PF, B ooster, [...] on file documented as of this encounter Last Filed Vital Signs Vital Sign Reading Time Taken Comments Blood Pressure 130/72 01/08/2024 12:46 PM EDT Pulse 60 01/08/2024 12:46 PM EDT Temperature 36.7 C (98.1 F) 01/08/2024 12:46 PM E DT Respiratory Rate - - Oxygen Saturation - - Inhaled Oxygen Concentration - - Weight 81.2 kg (179 lb) 01/08/2024 12:46 PM EDT Height 162.6 cm (5' 4") 01/08/2024 12:46 PM EDT Body Mass Index 30.73 01/08/2024 12:46 PM EDT documented in this encounter Functional Status Functional Status Response [...] old or older) Yes-pt doesnt drive 08/24/19 Cognitive Status Response Date of Assessm ent Because of a physical, menta l, or emotional condition, do you have serious difficulty concentrating, remembering, or making decisions? (5 years old or older) No 08/24/2023 documented as of this encounter Patient Instructions * Patient Instructions* Rachael Tavarez CRNP - 01/08/2024 12:46 PM EDT MED CHANGES STOP Miralax STOP Senna STOP Prune Juice Start Amitiza 24 mcg (1 tablet) twice per day Pantoprazole: Take 1 tablet twice per day x14 days then reduce to 1 tablet daily. Okay to continue Pepcid -- Switch to 40 mg nightly Okay to continue Carafate twice per day Lifestyle and dietary modification: Selective limitation of dietary triggers - Common dietary triggers include carbonated beverages, spicy foods, fatty or fried foods, excess coffee, and peppermint Behavioral changes for nocturnal symptoms Avoid late meals - Patients with symptoms when recumbent should maintain a three-hour interval between a meal and lying down. Sleeping in the left side moves the puddle of gastric contents away from the gastroesophageal junction and may minimize reflux that occurs while supine Elevation of the head of the bed - Elevation of the head end of the bed may improve nocturnal reflux-like symptoms.Patients can use six- to eight-inch blocks under the legs at the head of the bed or a foam wedge under the mattress. Weight loss - We encourage weight loss for individuals with overweight or obesity and those who have recently gained weight. Evidence suggests that weight loss reduces reflux-like symptoms Smoking cessation - We encourage all individuals who smoke tobacco to quit. Tobacco smoking increases the risk of reflux-like symptoms by reducing lower esophageal sphincter pressure, triggering coughing, and diminishing salivation. Avoidance of alcohol-- which reduces lower esophageal sphincter pressure Avoidance of tight-fitting garments to prevent increases in intragastric pressure and the gastroesophageal pressure gradient (see "Pathophysiology of gastroesophageal reflux disease", section on 'Theantireflux barrier') documented in this encounter Progress Notes * Rachael Tavarez CRNP - 01/08/2024 1:00 PM EDT Gastroenterology Outpatient Visit 01/08/2024 Referring physician:Keagan Sanchez MD PCP: Keagan Sanchez MD Past medical history: History of drug-induced/steroid-induced pancreatitis, 08/24/2023 (CTAP) Gastroparesis GERD Fatty liver disease History of cholecystectomy Spinal stenosis with chronic low back pain Status post multiple lumbar spine surgeries by Neurosurgery Spinal cord stimulator implanted Coronary artery disease History of NSTEMI status post PCI to pLAD, 02/2020 Repeat catheterization due to T-wave changes, Status post PCI to the ostial and mid 1st diagonal branches, x2 LIZBETH, 08/2020 Hyperlipidemia Type 2 diabetes Hypothyroidism CC: Left lower quadrant pain HPI: Very pleasant 63-year-old female presents today to the gastroenterology office as a new patient. Referred by her PCP following an emergency department visit at [facility] with ongoing symptoms of left-sided groin/abdominal pain, bloating, and acid reflux. Patient was seen at the [facility] on 11/21/2023 due to back and abdominal pain primarily in the epigastric region. Blood work showed mild stable anemia, mild leukopenia. LFTs were mildly abnormal but appeared to be at baseline. Renal function was stable with moderate hyponatremia. CT of the abdomen/pelvis was unremarkable. Since this visit at the end of October she had was seen in the emergency department an additional 2 times. 12/24/2023: Concerns with dizziness, lethargy, and weakness. Presyncopal episodes. Symptoms were felt to be due to tizanidine which was a new medication prescribed by her orthopedic doctor. She was also found to have a UTI and was treated with Keflex. 01/02/2024: Back and neck pain after a fall. Found to have a closed rib fracture- treated with tramadol and discharged. Today the patient presents with her main concern being epigastric discomfort. She has 2 separate types: Epigastric pain at the end of her esophagus described as a burning sensation. Occurs if she eats ordrinks too fast. Symptoms are intermittent. She did have an episode of dysphagia yesterday while eating. Coughed up undigested food. Was not able to drink any liquids. Similar location/slightly lower epigastric area-- becomes swollen and hard. Radiates to the right upper quadrant. Described as sharp and stabbing. Lasts about 10 minutes and goes away on own. Takes breath away. Sometimes has to lay down. Questioning if it was due to constipation. Previously had left lower quadrant pain which has resolved after being treated with antibiotics fora UTI. Stools are described as loose/diarrhea. Takes MiraLax, prune juice, and Senokot daily. If she does not take these medications she does not have a bowel movement. Can go upwards of one-week and has significant bloating because of it. Denies any blood in the stool. Patient is compliant with all medications, and offers no side effects. Wondering if she is on too many medications- and would like to consolidate. Notes that she eat a diet high in fatty/fried foods as well as acidic foods. Previous GI workup: Colonoscopy: 03/2022--end-to-side colocolonic anastomosis with healthy mucosa, diverticulosis of the sigmoid colon. No specimens collected. Repeat due 03/2027 Endoscopy: 06/26/2023--gastritis, multiple fundic polyps (benign); biopsies unremarkable CT: 10/2023--fatty infiltration, status post cholecystectomy. Fecal loading without obstruction. Pancreas unremarkable. Appendix unremarkable. Overall no acute findings Social history: Tobacco use: None ETOH use: None Illicit drug use: None Family Hx: No known family history of inflammatory bowel disease or colorectal cancer. Current Outpatient Medications Medication Sig Dispense Refill Cholecalciferol (VITAMIN D) 1000 UNIT Capsule Take 1 Cap by mouth daily. 30 Cap 11 Aspirin 81 MG Oral Tablet Chewable Take 1 Tab by mouth daily. 30 Tab 11 Atorvastatin Calcium 80 MG Oral Tablet (Lipitor) TAKE ONE TABLET BY MOUTH EVERY EVENING 90 Tablet 3 amLODIPine Besylate 5 MG Oral Tablet (Norvasc) TAKE ONE TABLET BY MOUTH IN THE MORNING 90 Tablet 3 Metoprolol Succinate ER 25 MG Oral Tablet Extended Release 24 Hour (toPROL XL) TAKE ONE TABLET BY MOUTH IN THE MORNING. 90 Tablet 3 hydrOXYzine HCl 50 MG Oral Tablet Take 1 Tablet by mouth 3 times a day as needed for Anxiety (hyperventilation). 30 Tablet 0 Sertraline HCl 100 MG Oral Tablet (Zoloft) metFORMIN HCl 500 MG Oral Tablet (Glucophage) Take 1 Tablet by mouth 2 times a day with morning andevening meals. 60 Tablet 4 Ezetimibe 10 MG Oral Tablet (Zetia) TAKE ONE TABLET BY MOUTH EVERY MORNING 90 Tablet 3 Levothyroxine Sodium 112 MCG Oral Tablet (Levoxyl) TAKE 1 TABLET BY MOUTH DAILY AT LEAST 30 MINUTESPRIOR TO FIRST MEAL OF THE DAY OR OTHER MEDICATIONS 90 Tablet 1 Topiramate 25 MG Oral Tablet (topAMAX) Take 2 tablets by mouth nightly 180 Tablet 2 Amitriptyline HCl 50 MG Oral Tablet (Elavil) Take 1 Tablet by mouth at bedtime. Ondansetron ODT 2 MG ON TONGUE TBDP Place 0.5 Tablets on tongue every 8 hours as needed for Nausea.dissolve on tongue. Diclofenac Sodium 50 MG Oral Tablet Delayed Release (Voltaren) Take 1 Tablet by mouth in the morning and 1 Tablet before bedtime. 60 Tablet 2 Gabapentin 600 MG Oral Tablet (Neurontin) Take 2 tabs in morning, 2 tabs at lunch and 2 tabs at night 180 Tablet 5 Metoclopramide HCl 10 MG Oral Tablet (Reglan) Take 1 Tablet by mouth 3 times a day. 270 Tablet 0 traMADol HCl 50 MG Oral Tablet (Ultram) Take 1 Tablet by mouth every 6 hours as needed for Pain, Moderate. 15 Tablet 0 Baclofen 20 MG Oral Tablet Take 1 Tablet by mouth 4 times a day. 360 Tablet 0 Sucralfate 1 GM Oral Tablet (Carafate) Take 1 Tablet by mouth in the morning and 1 Tablet at noon and 1 Tablet before bedtime. 180 Tablet 3 Lubiprostone 24 MCG Oral Capsule (Amitiza) Take 1 Capsule by mouth 2 times a day with morning and evening meals. 200 Capsule 3 Pantoprazole Sodium 40 MG Oral Tablet Delayed Release (Protonix) Take 1 tablet twice per day x14 days then reduce to 1 tablet daily 90 Tablet 3 Famotidine 20 MG Oral Tablet (Pepcid) Take 2 Tablets by mouth at bedtime. 60 Tablet 11 Nitroglycerin 0.4 MG Sublingual Tablet Sublingual (Nitrostat) Place 1 Tablet under the tongue every5 minutes as needed for Pain, Chest. (Patient not taking: Reported on 12/22/2023) 25 Tablet 1 Levalbuterol HCl 1.25 MG/3ML Inhalation Nebulization Solution (Xopenex) Inhale 1 Ampule via nebulizer every 4 hours as needed for Wheezing. (Patient not taking: Reported on 01/08/2024) 72 mL 12 Levalbuterol Tartrate 45 MCG/ACT Inhalation Aerosol (Xopenex HFA) Inhale 2 Puffs by mouth every 4 hours as needed for Wheezing. (Patient not taking: Reported on 01/08/2024) 15 g 12 Comirnaty 30 MCG/0.3ML Intramuscular Suspension Prefilled Syringe (COVID-19 mRNA Vaccine 12 years and above Share Some Style) Inject into a large muscle. (Patient not taking: Reported on 12/22/2023) 0.3 mL 0 Acetaminophen 500 MG Oral Tablet (Tylenol Extra Strength) Take 1 Tablet by mouth every 6 hours as needed. tiZANidine HCl 4 MG Oral Tablet (Zanaflex) Take 1 Tablet by mouth in the morning and 1 Tablet at noon and 1 Tablet before bedtime. (Patient not taking: Reported on 12/29/2023) 90 Tablet 2 No current facility-administered medications for this visit. Past Medical History: Diagnosis Date Acute viral syndrome 06/06/2018 Acute condition Adjustment disorder with depressed mood Ankylosing spondylitis (HCC) Colitis, acute Acute condition Diverticulitis of colon Epigastric pain 05/01/2021 Family history of colonic polyps Gastritis Herpetic vulvovaginitis Hypothyroidism Lumbago 2008 Migraine with aura Mixed dyslipidemia Myalgia and myositis, unspecified 06/18/2012 Other anxiety states Other chest pain 02/27/2007 Acute condition Other specified gastritis without mention of hemorrhage 03/29/2008 mod chronic gastritis Vertebral fracture, pathological 08/30/2009 No longer current Past Surgical History: Procedure Laterality Date ABD/PELVIS CT W/ IV AND W/ PO CONTRAST 03/27/2008 ANORECTAL EXAM ,DIAG, REQUIRING ANESTHESIA N/A 10/20/2015 ANORECTAL EXAM UNDER ANESTHESIA performed by Domenico Barraza DO at OR [facility] AUTOGRAFT, SPINE SURGERY, LOCAL 03/10/2012 OBTAIN BONE GRAFT FOR SPINE SURGERY LOCAL performed by Norm Billings DO at OR [facility] CHEMODENERVATION INTERNAL ANAL SPHINCTER N/A 10/20/2015 CHEMODENERVATION INTERNAL ANAL SPHINCTER performed by Domenico Barraza DO at OR [facility] COLONOSCOPY, DIAGNOSTIC (RECTUM) 01/19/2007 COLONOSCOPY, DIAGNOSTIC (RECTUM) 08/10/2013 normal, repeat 5 yrs/COLONOSCOPY FLEXIBLE PROXIMAL DIAGNOSTIC performed by Tete Cr DO at ENDOSCOPY [facility] COLONOSCOPY, DIAGNOSTIC (RECTUM) 04/18/2022 end to end colo-colonic anastomosis, diverticulosis in sigmoid / no specimens collected / 5 year recall / COLONOSCOPY FLEXIBLE PROXIMAL DIAGNOSTIC performed by Tete Cr DO at [facility]COPY [facility] CORONARY ANGIOGRAPHY W/LEFT HEART CATH Left 02/25/2020 CORONARY ANGIOGRAPHY W/LEFT HEART CATH performed by Ilan Plascencia DO at [facility]ARDI[facility]S [facility] CORONARY ANGIOGRAPHY W/LEFT HEART CATH Right 02/25/2020 CORONARY ANGIOGRAPHY W/LEFT HEART CATH performed by Jerrica Barboza MD at [facility] CORONARY ANGIOGRAPHY W/LEFT HEART CATH Right 09/20/2020 CORONARY ANGIOGRAPHY W/LEFT HEART CATH performed by Kelton Womack MD at [facility] EGD, FLEXIBLE, DIAGNOSTIC 07/21/2014 mild gastritis/ESOPHAGOGASTRODUODENOSCOPY (EGD), FLEXIBLE, TRANSORAL, DIAGNOSTIC performed by Lalitha Cr DO at [facility] EGD, FLEXIBLE, DIAGNOSTIC 04/17/2021 fundic gastric polyp / ESOPHAGOGASTRODUODENOSCOPY (EGD), FLEXIBLE, TRANSORAL, DIAGNOSTIC performed by Rosario Pope DO at [facility]COPY [facility] EGD, FLEXIBLE, DIAGNOSTIC N/A 06/26/2023 gastritis/multiple gastric polyps/biopsies show fundic polyps/EGD EGD, FLEXIBLE, DIAGNOSTIC 06/26/2023 ESOPHAGOGASTRODUODENOSCOPY (EGD), FLEXIBLE, TRANSORAL, DIAGNOSTIC performed by Rosario Pope DOat [facility]OSCOPY [facility] EGD, FLEXIBLE, W/BIOPSY 03/29/2008 mod chronic gastritis EXCLUSION SM.BOWEL FROM PELVIS 03/24/2001 13 inches removed INFORMATION 10/15/2011 laparoscopic ventral hernia repair with mesh [facility] - Dr. Sourav Wood INJECT DX/THER SUBSTANCE INTERLAMINAR CERVICAL/THORACIC W IMAGE GUIDE 04/08/2022 INJECTION SPINE LUMBAR CERVICAL OR THORACIC performed by Anuj Pierce DO at [facility] LUMBAR HEMILAMINECTOMY 03/13/2009 LAMINOTOMY DECOMPRESSION NERVE ROOT LUMBAR performed by NORM BILLINGS [facility] LUMBAR SPINE FUSION, POST INTERBODY 03/10/2012 ARTHRODESIS SPINE POSTERIOR INTERBODY WITH LAMINECTOMY LUMBAR performed by Norm Billings DO [facility] LUMBAR SPINE FUSION, POSTEROLATERAL 03/10/2012 ARTHRODESIS SPINE POSTERIOR LUMBAR performed by Norm Billings DO at OR [facility] MICROSURGERY ADD-ON 07/06/2012 MICROSURGICAL SURGERY REQUIRING MICROSCOPE LISTED SEPARATELY performed by Norm Billings DO at OR [facility] NM GASTRIC EMPTYING STUDY SOLID 03/31/2008 T 1/2= 103 minutes REMOVE ADDED SPINE LAMINA, 1 SEG 03/10/2012 LAMINECTOMY FACETECTOMY AND FORAMINOTOMY ADDITIONAL LEVELS performed by Norm Billings DO at [facility] REMOVE GALLBLADDER REMOVE LUMBAR SPINE LAMINA, 1 SEG 03/10/2012 LAMINECTOMY FACETECTOMY AND FORAMINOTOMY POSTERIOR LUMBAR performed by Norm Billings DO at OR [facility] REMOVE LUMBAR SPINE LAMINA, 1 SEG N/A 04/23/2019 LAMINECTOMY FACETECTOMY AND FORAMINOTOMY LUMBAR performed by Lm Valle MD at OR [facility] REPAIR SPINAL FLUID LEAK,W/LAMINECT 07/06/2012 REPAIR SPINAL CEREBROSPINAL FLUID LEAK WITH POSTERIOR LAMINECTOMY performed by Norm Billings DO at OR [facility] REVERSE TOTAL SHOULDER ARTHROPLASTY Right 07/11/2022 REVERSE TOTAL SHOULDER ARTHROPLASTY performed by Sami Angelo DO at OR [facility] REVISION OF ULNAR NERVE AT ELBOW SPINE FIXATION, POSTERIOR, (ELDER) 03/10/2012 POSTERIOR SPINE INSTRUMENTATION NON SEGMENTAL performed by Norm Billings DO at OR [facility] TOTAL HYSTERECTOMY 03/24/1981 Social History Tobacco Use Smoking status: Never Smokeless tobacco: Never Vaping Use Vaping status: Never Used Substance Use Topics Alcohol use: No Drug use: Never Review of patient's allergies indicates: Allergen Reactions Clarithromycin Other Reaction(s): Rash, diarrhea, RASH,DIARRHEA Duloxetine Hcl Flushing and Nausea/vomiting Prednisone Other (Please comment) pancreatitis Adhesive Tape Other Reaction(s): Tape- redness, paper tape/coban "ok", [id number] TAPE OK OR COBAN Erythromycin Base Rash Penicillins Rash Sulfa Antibiotics Rash Orlistat Other Reaction(s): GI UPSET Review of Systems: See HPI for pertinent positives. All others negative, other than those noted in HPI. Physical Exam: BP 130/72 | Pulse 60 | Temp 36.7 C (98.1 F) | Ht 1.626 m (5' 4") | Wt 81.2 kg (179 lb) | BMI 30.73 kg/m | BSA 1.92 m GENERAL: Well developed and well nourished in no acute distress. SKIN: No rashes, ulcers, jaundice or spider angiomata. HEENT: Normocephalic, sclera clear, pharynx normal. NECK: Supple, no lymphadenopathy, no masses or thyroid enlargement. LUNGS: Clear to auscultation bilaterally, no respiratory distress or accessory muscles used. HEART: Regular rate & rhythm, no murmurs and no gallops. ABDOMEN: Normal bowel sounds, soft. Epigastric sensitivity. no masses or hepatosplenomegaly. EXTREMITIES: No palmar erythema, no ankle edema, no skin discoloration, no clubbing, no cyanosis. NEURO: No lateralizing findings. Sensory/Motor grossly normal. Lab data/imaging study review: EGD 06/2023 Impression: - Normal esophagus. - Z-line regular, 35 cm from the incisors. - Gastritis. Biopsied. - Multiple gastric polyps. Biopsied. - Normal examined duodenum. Colonoscopy 03/2022 Impression: - Patent end-to-side colo-colonic anastomosis, characterized by healthy appearing mucosa. - Diverticulosis in the sigmoid colon. - The distal rectum and anal verge are normal on retroflexion view. - No specimens collected. Recommendation: - Repeat colonoscopy in 5 years for screening purposes. Impression/Plan: This is a(n) 63 year old female who is being evaluated in the office for ongoing care/risk management for the below diagnoses. 1. Left lower quadrant pain 2. Chronic constipation Left lower quadrant pain has since resolved however she has been having issues with constipation. Symptoms likely exacerbated due to chronic back pain and immobility. Takes multiple medications including MiraLax, prune juice, and Senokot. Because of this she has diarrhea daily. He does not take these medications she can go upwards of one-week without a bowel movement. I am wondering if her diarrhea is the cause of her hyponatremia. Stool viral studies + CDIFF rule out to rule out infection Blood work ordered including: TTG and IGA (rule out celiacs), repeat TSH plus free T4, recent TSH was elevated. CTAP with IV and oral contrast ordered for further assessment. Stop MiraLax, prune juice, and Senokot. Start Amitiza 24 mcg twice daily, may need to reduce dose. If ineffective consider re-trialing of Linzess. If symptoms persist or worsen despite medication adjustments may need to consider repeat colonoscopy. 2. Gastroparesis On Reglan 10 mg three times daily 3. Gastroesophageal reflux disease without esophagitis + Gastritis on recent imaging. Patient with epigastric discomfort. Gastritis confirmed on EGD 06/2023 Recommend dietary and lifestyle modifications: Avoid dietary triggers. Typical triggers include: carbonated beverages, spicy foods, fatty or friedfoods, excess coffee, and peppermint. Encouraged weight loss. Patient should try elevating the head of the bed some, refrain from lying flat after meals and avoid meals 2-3 hours before bedtime. Recommend smoking cessation and avoidance of alcohol. Peppermint can also make reflux symptoms worse. These substances reduce lower esophageal sphincter pressure. Discontinue/avoid all NSAID use Encouraged strict compliance with PPI therapy. Currently on pantoprazole 40 mg daily, will increaseto twice daily. Medication should be taking 30 minutes prior to 1st meal of the day and 30 minutes prior to dinner-- she is to do this for 14 days and reduced back down to 40 mg daily thereafter. Continue Pepcid 20 mg daily. Mag and B12 level ordered. Continue Carafate twice daily. Given recent dysphagia will obtain a barium swallow. Future considerations for manometry. 4. Nonalcoholic fatty liver disease 5. Abnormal LFTs Fatty infiltration noted on recent CTAP 10/2023 Mild elevation in LFTs (AST/ALT) FIB-4 Calculation: 2.12 at 01/02/2024 9:53 AM Calculated from: SGOT/AST: 43 U/L at 01/02/2024 9:53 AM SGPT/ALT: 65 U/L at 01/02/2024 9:53 AM Platelets: 156 K/uL at 01/02/2024 9:53 AM Age: 63 years Advised lifestyle modifications w dietary changes, exercise for healthy weight loss (at least 10% body weight), tight control of blood sugar, cholesterol especially triglyceride levels, maintain healthy BP. No ETOH >1 serving a day, APAP no more than 2g a day We will need to consider further blood work +/- FibroScan. Can discuss at follow up 6. Drug-induced acute pancreatitis without infection or necrosis History of drug-induced/steroid-induced pancreatitis, 08/24/2023 (CTAP) The patient agrees to the above plan and will call with additional questions or concerns. ER with all emergencies advised. Follow-up: Return in about 4 weeks (around 02/05/2024). | Check-out note: - Schedule CT scan -Schedule Barium swallow -Labs today -Print instructions I spent a total of Greater than 55 mins (exact time 60 mins) on the date of service in preparation,delivery, and documentation of the care provided to Shalini Pace excluding any time spent in the performance of separately billed services or time spent by another provider/QHP. SHEN De Guzman [facility] Gastroenterology, [facility] This chart was completed in part utilizing [employer] Speech Voice Recognition Software. Grammatical errors, random word insertions, prounoun errors, and incomplete sentences are an occasional consequence of this system due to software limitations, ambient noise, and hardware issues. Any formal questions or concerns about the content, text, or information contained within the body of this dictation should be directly addressed to the provider for clarification. documented in this encounter Nursing Notes * Brook Noguera CMA - 01/08/2024 12:49 PM EDT Chief Complaint Patient presents with NEW PATIENT New pt ref by Dr Sanchez for LLQ pain. Pt states LLQ pain has subsided. Now having epigastric pain. Pt was in ED 11/[address] scan done and was dx with gastritis. Pt also having difficulty moving bowels.No bleeding/straining. Pt has neurogenic bladder. Can't feel when she urinates or has BM's. On Miralax and prune juice daily. Pt recently dx w/ ankylosing spondylitis. Pt currently has 8th R rib fracture due to a fall. documented in this encounter Plan of Treatment Upcoming Encounters Date Type Department Care Team (Late st Contact Info) Description 01/08/2024 2:00 PM EDT Laboratory Laboratory, [facility] [address] [place] [id number] [facility] [address] [place] [address] Left lower quadrant pain; Chronic constipation; Gastroparesis; Gastroesophageal reflux disease without esophagitis; Nonalcoholic fatty liver disease; Abnormal LFTs; Drug-induced acute pancreatitis without infection or necrosis; Abdominal pain, epigastric; Chronic superficial gastritis without bleeding 01/14/2024 10:30 AM EDT Appointment Radiology, [facility] [address] [place] [address] 01/22/2024 1:00 PM EDT Appointment Radiology [facility], [address] [address] 02/02/2024 12:30 PM EST Home Visit [facility] [address] [place] [address] Nika Guevara RN [address] [place] [address] 02/05/2024 1:30 PM EST Office Visit [facility]astroenterology, [facility] [address] [facility] [place] [address] Rachael Tavarez CRNP [address] [facility] [place] [address] 02/11/2024 10:30 AM EST Telemedicine [facility] [address] [place] [address] Oriana Isaacs PA-C [address] [place] [address] Edith Garcia, [facility] [address] [place] [address] 06/07/2024 11:00 AM EDT Office Visit Cardiology [facility] [address] [phone] Angela Littlejohn CRNP [facility] [place] [address] 06/21/2024 10:40 AM EDT Office Visit Family Practice [facility] [address] [place] [phone] Keagan Sanchez MD [address] [place] [address] 08/09/2024 10:00 AM EDT Office Visit Orthopaedics [facility] [address] [place] [address] Sami Angelo, DO [address] [place] [address] 10/07/2024 2:40 PM EDT Office Visit Dermatology [facility] [address] [place] [phone] Alden Ann PA-C [address] [place] [address] 11/25/2024 11:00 AM EDT Office Visit Neurology [facility] [address] [place] [address] Kelly Waddell PA-C [address] [place] [address] Pending Results Name Type Priority Associated Diagnoses [...] without bleeding 01/08/2024 1:51 PM EDT Scheduled Orders Name Type Priority Associated Diagnoses Orde r Schedule MAGNESIUM Lab Routine Left lower quadrant pain Chronic constipation Gastroparesis Gastroesophageal reflux disease without esophagitis Nonalcoholic fatty liver disease Abnormal LFTs Drug-induced acute pancreatitis without infection or necrosis Abdominal pain, epigastric Chronic superficial gastritis without bleeding Expected: 01/08/2024, Expires: 01/07/2025 VITAMIN B12 Lab Routine Left lower quadrant pain Chronic constipation Gastroparesis Gastroesophageal reflux disease without esophagitis Nonalcoholic fatty liver disease Abnormal LFTs Drug-induced acute pancreatitis without infection or necrosis Abdominal pain, epigastric Chronic superficial gastritis without bleeding Expected: 01/08/2024, Expires: 01/07/2025 CT ABD/PELVIS W IV AND W ORAL CONTRAST Medical Imaging Routine Left lower quadrant pain Chronic constipation Gastroparesis Gastroesophageal reflux disease without esophagitis Nonalcoholic fatty liver disease Abnormal LFTs Drug-induced acute pancreatitis without infection or necrosis Abdominal pain, epigastric Chronic superficial gastritis without bleeding Expected: 01/08/2024, Expires: 02/07/2025 FLUORO ESOPHAGRAM ENTIRE Medical Imaging Routine Left lower quadrant pain Chronic constipation Gastroparesis Gastroesophageal reflux disease without esophagitis Nonalcoholic fatty liver disease Abnormal LFTs Drug-induced acute pancreatitis without infection or necrosis Abdominal pain, epigastric Chronic superficial gastritis without bleeding Ordered: 01/08/2024 GASTROINTESTINAL PATHOGEN PANEL, STOOL Lab Routine Left lower quadrant pain Chronic constipation Gastroparesis Gastroesophageal reflux disease without esophagitis Nonalcoholic fatty liver disease Abnormal LFTs Drug-induced acute pancreatitis without infection or necrosis Abdominal pain, epigastric Chronic superficial gastritis without bleeding Expected: 01/08/2024, Expires: 01/07/2025 CLOSTRIDIUM DIFFICILE, PCR Lab Routine Left lower quadrant pain Chronic constipation Gastroparesis Gastroesophageal reflux disease without esophagitis Nonalcoholic fatty liver disease Abnormal LFTs Drug-induced acute pancreatitis without infection or necrosis Abdominal pain, epigastric Chronic superficial gastritis without bleeding Expected: 01/08/2024, Expires: 01/07/2025 TISSUE TRANSGLUTAMINASE IGA ANTIBODY Lab Routine Left lower quadrant pain Chronic constipation Gastroparesis Gastroesophageal reflux disease without esophagitis Nonalcoholic fatty liver disease Abnormal LFTs Drug-induced acute pancreatitis without infection or necrosis Abdominal pain, epigastric Chronic superficial gastritis without bleeding Expected: 01/08/2024, Expires: 01/07/2025 IGA Lab Routine Left lower quadrant pain Chronic constipation Gastroparesis Gastroesophageal reflux disease without esophagitis Nonalcoholic fatty liver disease Abnormal LFTs Drug-induced acute pancreatitis without infection or necrosis Abdominal pain, epigastric Chronic superficial gastritis without bleeding Expected: 01/08/2024, Expires: 01/07/2025 TSH WITH FREE T4 IF INDICATED Lab Routine Left lower quadrant pain Chronic constipation Gastroparesis Gastroesophageal reflux disease without esophagitis Nonalcoholic fatty liver disease Abnormal LFTs Drug-induced acute pancreatitis without infection or necrosis Abdominal pain, epigastric Chronic superficial gastritis without bleeding Expected: 01/08/2024, Expires: 01/07/2025 Scheduled Procedures Name Priority Associated Diagnoses Date/Ti [...] D LEVEL ONCE IN A LIFETIME-USE SMARTSET# [id number] Completed 01/28/2022, 02/21/2015, 12/30/2011 RETIRED - COLONOSCOPY-EVERY [...] this encounter Medical Devices Implanted Type Area Workgroup Leader Device Identifier Shelf Expiration Date Model / Serial / Lot Medtronic-05/27/2023 Implanted: (Quantity not on file) Neurostimulator [employer] : NEUROLOGIC PAIN 05/26/2049 [id number] / / [id number] Screw Jami Lacie 3 Ti Set - [id number] Implanted:Qt y: 6 on 03/10/2012 at [place] [facility] Bilateral : Spine Lumbar LEVON : SPINE [id number] / / Screw Lacie Pa Ti 6.5x50mm - [id number] Implanted:Qt y: 4 on 03/10/2012 at [place] [facility] Bilateral : Spine Lumbar LEVON : SPINE [id number] / / Levon Xia3 7.0 X 40mm Screws Implanted:Qt y: 2 on 03/10/2012 at [place] [facility] Bilateral : Spine Lumbar [id number] / / Shaun Lacie 3 Ti 6x70mm - [id number] Implanted:Qt y: 1 on 03/10/2012 at [place] [facility] N/A: Spine Lumbar LEVON : SPINE [id number] / / Shaun Lacie 3 Ti Max 6x80mm - [id number] Implanted:Qt y: 1 on 03/10/2012 at [place] [facility] N/A: Spine Lumbar LEVON : SPINE [id number] / / 9 X 25 X 4 - 8 Avs Wedge Nose Cage Implanted:Qt y: 1 on 03/10/2012 at [place] [facility] N/A: Spine Lumbar [id number] / / Stent Synergy Xd Mr 2.21k64fi - [id number] Implanted:Qt y: 1 on 09/20/2020 at [facility] [email or web address] [id number] 04/18/2022 [id number] / / [id number] Stent Synergy Xd Mr 2.84i14rp - [id number] Implanted:Qt y: 1 on 09/20/2020 at [facility] [email or web address] [id number] 04/25/2022 [id number] / / [id number] Screw Locking 4.5mm 15mm - [id number] Implanted:Qt y: 1 on 07/11/2022 by Sami Angleo DO at [place] [facility] Right: Shoulder [employer] 11/22/2025 108-4515 / / [id number] Bseplate Jasmeet Cmntlss W Scrw - [id number] Implanted:Qt y: 1 on 07/11/2022 by Sami Angelo DO at [place] [facility] Right: Shoulder [employer] 03/24/2027 105-0029 / / [id number] Glenosphere Rev Thee W Scrw - [id number] Implanted:Qt y: 1 on 07/11/2022 by Sami Angelo DO at [place] [facility] Right: Shoulder [employer] 04/24/2027 105-3610 / / [id number] Screw Locking 4.5mm 15mm - [id number] Implanted:Qt y: 1 on 07/11/2022 by Sami Angelo DO at [place] [facility] Right: Shoulder [employer] 03/24/2027 108-4515 / / [id number] Screw Locking 4.5mm 20mm - [id number] Implanted:Qt y: 1 on 07/11/2022 by Sami Angelo DO at [place] [facility] Right: Shoulder [employer] 03/24/2027 108-4520 / / [id number] Humelock Ii Stem Ta6v Size 12 Cementless Implanted:Qt y: 1 on 07/11/2022 by Sami Angelo, DO at [place] [facility] Right: Shoulder [employer] 10/22/2026 [id number] / / [id number] Cortical Screw Ta6v, 5mm, L. 24mm Implanted:Qt y: 1 on 07/11/2022 by Sami Angelo, DO at [place] [facility] Right: Shoulder [employer] 09/22/2023 107-4524 / / [id number] Humeral Cup 135/145 Degree, Standard, 36/+6 Implanted:Qt y: 1 on 07/11/2022 by Sami Angelo DO at [place] [facility] Right: Shoulder 02/21/2025 [id number] / / [id number] Screw Locking 4.5mm 20mm - [id number] Implanted:Qt y: 1 on 07/11/2022 by Sami Angelo, DO at [place] [facility] Right: Shoulder [employer] 03/24/2027 108-4520 / / [id number] documented as of this encounter Visit Diagnoses Diagnosis Nonalcoholic fatty liver disease- Primary Other chronic nonalcoholic liver disease Left lower quadrant pain Abdominal pain, left lower quadrant Chronic constipation Unspecified constipation Gastroparesis Gastroesophageal reflux disease without esophagitis Esophageal reflux Abnormal LFTs Other abnormal blood chemistry Drug-induced acute pancreatitis without infection or necrosis Abdominal pain, epigastric Chronic superficial gastritis without bleeding Atrophic gastritis without mention of hemorrhage Left lower quadrant pain Abdominal pain, left [...] Pace Spouse Health Care Agent Care Teams Attorney Relationship Specialty Start Date End Date Keagan Sanchez MD [address] [place] [id number] PCP - General Family Medicine 10/07/23 documented as of this encounter
--- OUTSIDE RECORDS SUMMARY | 2024-03-06 12:27 | External Medical Summary | Summary of Care ---
Author Name Unknown Organization [facility] Address [address] [place] [address] Phone [phone] Care Team Providers Care Health Science Instructor Name Role Phone Keagan Sanchez MD Primary Care Provider [phone] Reason for Referral * Precert (Within 10 [...] CONTRAST Rachael Tavarez CRNP [address] [place] [address] Referral ID Status Reason Start Date Expiration Date V isits Requested Visits Authorized [id number] Authorized 01/08/2024 999 999 Reason for Visit [...] quadrant abdominal pain Keagan Sanchez MD [address] [place] [address] Referral ID Status Reason Start Date Expiration Date Visits Requested Visits Authorized [id number] Authorized Specialty Services Required 11/28/2023 999 999 Encounter Details Date Type Department Care Team (Late st Contact Info) Description 01/08/2024 1:00 PM EDT Office Visit [facility]astroenterology, [facility] [place] [address] Rachael Tavarez CRNP [address] [place] [address] Nonalcoholic fatty liver disease*; Left lower quadrant pain; Chronic constipation; Gastroparesis; Gastroesophageal reflux disease without esophagitis; Abnormal LFTs; Drug-induced acute pancreatitis without infection or necrosis; Abdominal pain, epigastric; Chronic superficial gastritis without bleeding Allergies Active Allergy Reactions Criticality Noted Date Comments Adhesive Tape 03/31/2023 Other Reaction(s): Tape- redness, paper tape/coban "ok", [id number] TAPE OK OR COBAN Clarithromycin High 03/31/2023 [...] Oral Tablet (Zetia)Indicatio ns:Coronary artery disease involving [place] coronary artery of [place] heart with unstable angina pectoris (HCC) TAKE [...] superficial gastritis without bleeding Take 1 tablet twice per day x14 [...] hypothyroidism 04/12/2021 Coronary artery disease invo lving [place] coronary artery of [place] heart without angina pectoris 09/27/2020 Last Assessment & Plan: Has 3 stents (2 in LAD one in diagonal), placed at [facility] [place] [address] Womack Followed by [facility] cardiology, Angela Littlejohn, next appt May 2024 [...] PCP following an emergency department visit at [facility] with ongoing symptoms of left-sided groin/abdominal pain, bloating, and acid reflux. Patient was seen at the [facility] Emergency Department on 11/21/2023 due to back [...] (COVID-19 mRNA Vaccine 12 years and above Photofy) Inject into a large muscle. (Patient not [...] performed by Domenico Barraza DO at OR [facility] AUTOGRAFT, SPINE SURGERY, LOCAL 03/10/2012 OBTAIN BONE GRAFT FOR SPINE SURGERY LOCAL performed by Norm Billings DO at OR [facility] CHEMODENERVATION INTERNAL ANAL SPHINCTER N/A 10/20/2015 CHEMODENERVATION INTERNAL ANAL SPHINCTER performed by Domenico Barraza DO at OR [facility] COLONOSCOPY, DIAGNOSTIC (RECTUM) 01/19/2007 COLONOSCOPY, DIAGNOSTIC (RECTUM) 08/10/2013 normal, repeat 5 yrs/COLONOSCOPY FLEXIBLE PROXIMAL DIAGNOSTIC performed by Tete Cr DO at ENDOSCOPY [facility] COLONOSCOPY, DIAGNOSTIC (RECTUM) 04/18/2022 end to end colo-colonic anastomosis, diverticulosis in sigmoid / no specimens collected / 5 year recall / COLONOSCOPY FLEXIBLE PROXIMAL DIAGNOSTIC performed by Tete Cr DO at ENDOSCOPY [facility] CORONARY ANGIOGRAPHY W/LEFT HEART CATH Left 02/25/2020 CORONARY ANGIOGRAPHY W/LEFT HEART CATH performed by Ilan Plascencia DO at CARDIAC LABS [facility] CORONARY ANGIOGRAPHY W/LEFT HEART CATH Right 02/25/2020 CORONARY ANGIOGRAPHY W/LEFT HEART CATH performed by Jerrica Barboza MD at CARDIAC LABS [facility] CORONARY ANGIOGRAPHY W/LEFT HEART CATH Right 09/20/2020 CORONARY ANGIOGRAPHY W/LEFT HEART CATH performed by Kelton Womack MD at CARDIAC LABS [facility] EGD, FLEXIBLE, DIAGNOSTIC 07/21/2014 mild gastritis/ESOPHAGOGASTRODUODENOSCOPY (EGD), FLEXIBLE, TRANSORAL, DIAGNOSTIC performed by Lalitha Cr DO at ENDOSCOPY [facility] EGD, FLEXIBLE, DIAGNOSTIC 04/17/2021 fundic gastric polyp / ESOPHAGOGASTRODUODENOSCOPY (EGD), FLEXIBLE, TRANSORAL, DIAGNOSTIC performed by Rosario Pope DO at ENDOSCOPY [facility] EGD, FLEXIBLE, DIAGNOSTIC N/A 06/26/2023 gastritis/multiple gastric polyps/biopsies show fundic polyps/EGD EGD, FLEXIBLE, DIAGNOSTIC 06/26/2023 ESOPHAGOGASTRODUODENOSCOPY (EGD), FLEXIBLE, TRANSORAL, DIAGNOSTIC performed by Rosario Pope DOat ENDOSCOPY [facility] EGD, FLEXIBLE, W/BIOPSY 03/29/2008 mod chronic gastritis EXCLUSION SM.BOWEL FROM PELVIS 03/24/2001 13 inches removed INFORMATION 10/15/2011 laparoscopic ventral hernia repair with mesh [facility] - Dr. Sourav Wood INJECT DX/THER SUBSTANCE INTERLAMINAR CERVICAL/THORACIC W IMAGE GUIDE 04/08/2022 INJECTION SPINE LUMBAR CERVICAL OR THORACIC performed by Anuj Pierce DO at [facility] LUMBAR HEMILAMINECTOMY 03/13/2009 LAMINOTOMY DECOMPRESSION NERVE ROOT LUMBAR performed by NORM BILLINGS [facility] LUMBAR SPINE FUSION, POST INTERBODY 03/10/2012 ARTHRODESIS SPINE POSTERIOR INTERBODY WITH LAMINECTOMY LUMBAR performed by Norm Billings DO atOR [facility] LUMBAR SPINE FUSION, POSTEROLATERAL 03/10/2012 ARTHRODESIS SPINE POSTERIOR LUMBAR performed by Norm Billings DO at OR [facility] MICROSURGERY ADD-ON 07/06/2012 MICROSURGICAL SURGERY REQUIRING MICROSCOPE LISTED SEPARATELY performed by Norm Billings DO at OR [facility] NM GASTRIC EMPTYING STUDY SOLID 03/31/2008 T 1/2= 103 minutes REMOVE ADDED SPINE LAMINA, 1 SEG 03/10/2012 LAMINECTOMY FACETECTOMY AND FORAMINOTOMY ADDITIONAL LEVELS performed by Norm Billings DO at [facility] REMOVE GALLBLADDER REMOVE LUMBAR SPINE LAMINA, 1 SEG 03/10/2012 LAMINECTOMY FACETECTOMY AND FORAMINOTOMY POSTERIOR LUMBAR performed by Norm Billings DO at OR [facility] REMOVE LUMBAR SPINE LAMINA, 1 SEG N/A 04/23/2019 LAMINECTOMY FACETECTOMY AND FORAMINOTOMY LUMBAR performed by Lm Valle MD at OR [facility] REPAIR SPINAL FLUID LEAK,W/LAMINECT 07/06/2012 REPAIR SPINAL CEREBROSPINAL FLUID LEAK WITH POSTERIOR LAMINECTOMY performed by Norm Billings DO at [facility] REVERSE TOTAL SHOULDER ARTHROPLASTY Right 07/11/2022 REVERSE TOTAL SHOULDER ARTHROPLASTY performed by Sami Angelo DO at OR [facility] REVISION OF ULNAR NERVE AT ELBOW SPINE FIXATION, POSTERIOR, (ELDER) 03/10/2012 POSTERIOR SPINE INSTRUMENTATION NON SEGMENTAL performed by Norm Billings DO at OR [facility] TOTAL HYSTERECTOMY 03/24/1981 Social History Tobacco Use Smoking status: Never Smokeless tobacco: Never Vaping Use Vaping status: Never Used Substance Use Topics Alcohol use: No Drug use: Never Review of patient's allergies indicates: Allergen Reactions Clarithromycin Other Reaction(s): Rash, diarrhea, RASH,DIARRHEA Duloxetine Hcl Flushing and Nausea/vomiting Prednisone Other (Please comment) pancreatitis Adhesive Tape Other Reaction(s): Tape- redness, paper tape/coban "ok", [id number] TAPE OK OR COBAN Erythromycin Base Rash [...] spent by another provider/QHP. SHEN De Guzman [facility] Gastroenterology, [facility] This chart was completed in part utilizing [employer] Speech Voice Recognition Software. Grammatical errors, random [...] Description 01/08/2024 2:00 PM EDT Laboratory Laboratory, [facility] [address] [facility] [place] [phone] [facility] 132 [place] [address] 01/14/2024 10:30 AM EDT Appointment Radiology, [facility] [address] [place] [address] 01/22/2024 1:00 PM EDT Appointment Radiology [facility], [facility] [address] [place] [address] 02/02/2024 12:30 PM EST Home Visit [facility] at [address] [phone] Nika Guevara RN [address] [place] [address] 02/05/2024 1:30 PM EST Office Visit Gastroenterology, [facility] [address] [place] [address] Rachael Tavarez CRNP [address] [place] [address] 02/11/2024 10:30 AM EST Telemedicine [facility] [place] [address] [place] [address] Oriana Isaacs PA-C [address] [place] [address] Edith Garcia, Community [facility] [employer] [address] [place] [address] 06/07/2024 11:00 AM EDT Office Visit Cardiology [address] [place] [phone] Angela Littlejohn CRNP [address] [place] [address] 06/21/2024 10:40 AM EDT Office Visit Family Practice [facility] [address] [place] [address] Keagan Sanchez MD [address] [place] [address] 08/09/2024 10:00 AM EDT Office Visit Orthopaedics [facility] [address] [place] [phone] Sami Angelo DO [address] [place] [address] 10/07/2024 2:40 PM EDT Office Visit Dermatology [facility] [address] [place] [phone] Alden Ann PA-C [address] [place] [address] 11/25/2024 11:00 AM EDT Office Visit Neurology [facility] Katherine Baskin [address] [place] [address] Kelly Waddell PA-C [address] [facility] [place] [address] Scheduled Orders Name Type Priority Associated Diagnoses [...] D LEVEL ONCE IN A LIFETIME-USE SMARTSET# 26103 Completed 01/28/2022, 02/21/2015, 12/30/2011 RETIRED - COLONOSCOPY-EVERY [...] this encounter Medical Devices Implanted Type Area Ceramic Mold Designer Device Identifier Shelf Expiration Date Model / Serial / Lot Medtronic-05/27/2023 Implanted: (Quantity not on file) Neurostimulator MEDTRONIC : NEUROLOGIC PAIN 05/26/2049 [id number] / / [id number] Screw Jami Lacie 3 Ti Set - [id number] Implanted:Qt y: 6 on 03/10/2012 at OR [facility] Bilateral : Spine Lumbar LEVON : SPINE [id number] / / Screw Lacie Pa Ti 6.5x50mm - [id number] Implanted:Qt y: 4 on 03/10/2012 at OR [facility] Bilateral : Spine Lumbar LEVON : SPINE [id number] / / Levon Xia3 7.0 X 40mm Screws Implanted:Qt y: 2 on 03/10/2012 at [facility] Bilateral : Spine Lumbar [id number] / / Shaun Lacie 3 Ti 6x70mm - [id number] Implanted:Qt y: 1 on 03/10/2012 at OR [facility] N/A: Spine Lumbar LEVON : SPINE [id number] / / Shaun Lacie 3 Ti Max 6x80mm - [id number] Implanted:Qt y: 1 on 03/10/2012 at OR [facility] N/A: Spine Lumbar LEVON : SPINE [id number] / / 9 X 25 X 4 - 8 Avs Wedge Nose Cage Implanted:Qt y: 1 on 03/10/2012 at OR [facility] N/A: Spine Lumbar [id number] / / Stent Synergy Xd Mr 2.00u43di - [id number] Implanted:Qt y: 1 on 09/20/2020 at CARDIAC LABS [facility] [employer] [id number] 04/18/2022 [id number] / / [id number] Stent Synergy Xd Mr 2.66g57iz - [id number] Implanted:Qt y: 1 on 09/20/2020 at CARDIAC LABS [facility] [employer] [id number] 04/25/2022 [id number] 2220 / / [id number] Screw Locking 4.5mm 15mm - [id number] Implanted:Qt y: 1 on 07/11/2022 by Sami Angelo DO at OR [facility] Right: Shoulder [employer] 11/22/2025 108-4515 / / [id number] Bseplate Jasmeet Cmntlss W Scrw - [id number] Implanted:Qt y: 1 on 07/11/2022 by Sami Angelo DO at [facility] Right: Shoulder [employer] 03/24/2027 105-0029 / / [id number] Glenosphere Rev Thee W Scrw - [id number] Implanted:Qt y: 1 on 07/11/2022 by Sami Angelo DO at [facility] Right: Shoulder [employer] 04/24/2027 105-3610 / / [id number] Screw Locking 4.5mm 15mm - [id number] Implanted:Qt y: 1 on 07/11/2022 by Sami Angelo DO at OR [facility] Right: Shoulder [employer] 03/24/2027 108-4515 / / [id number] Screw Locking 4.5mm 20mm - [id number] Implanted:Qt y: 1 on 07/11/2022 by Sami Angelo DO at OR [facility] Right: Shoulder [employer] 03/24/2027 108-4520 / / [id number] Humelock Ii Stem Ta6v Size 12 Cementless Implanted:Qt y: 1 on 07/11/2022 by Sami Angelo DO at OR [facility] Right: Shoulder [employer] 10/22/2026 311-0212 / / [id number] Cortical Screw Ta6v, 5mm, L. 24mm Implanted:Qt y: 1 on 07/11/2022 by Sami Angelo DO at OR [facility] Right: Shoulder [employer] 09/22/2023 107-4524 / / [id number] Humeral Cup 135/145 Degree, Standard, 36/+6 Implanted:Qt y: 1 on 07/11/2022 by Sami Angelo DO at OR [facility] Right: Shoulder 02/21/2025 313-0706 / / [id number] Screw Locking 4.5mm 20mm - [id number] Implanted:Qt y: 1 on 07/11/2022 by Sami Angelo DO at OR [facility] Right: Shoulder [employer] 03/24/2027 108-4520 [...] Agents on File Name Relationship Healthcare Agent [facility] p Communication Donny Pace Spouse Health Care Agent Care Teams Health Science Instructor Relationship Specialty Start Date End Date Keagan Sanchez MD [address] [place] [id number] PCP - General Family Medicine 10/07/23 documented as of this encounter
--- OUTSIDE RECORDS SUMMARY | 2024-03-06 12:27 | External Medical Summary ---
Author Name Unknown Address Unknown Organization K01:[facility] [place] [address] [address] [facility] [address] Laboratory Report Ordering Provider Test Date Status HIALRIA HERNANDEZ 01/09/2024 09:29:09 Final Observation Date Value Abnormality Reference (Units ) Status Campylobacter sp DNA.diarrheagenic [Presence] in Stool by JYOTI with probe detection 01/09/2024 09:29:09 Negative Negative Final Salmonella sp rpoD gene [Presence] in Stool by JYOTI with probe detection 01/09/2024 09:29:09 Negative Negative Final Shigella species+EIEC invasion plasmid antigen H ipaH gene [Presence] in Stool by JYOTI with probe detection 01/09/2024 09:29:09 Negative Negative Final Vibrio sp DNA [Identifier] in Specimen by JYOTI with probe detection 01/09/2024 09:29:09 Negative Negative Final Yersinia enterocolitica recN gene [Presence] in Stool by JYOTI with probe detection 01/09/2024 09:29:09 Negative Negative Final Escherichia coli Stx1 toxin stx1 gene [Presence] in Stool by JYOTI with probe detection 01/09/2024 09:29:09 Negative Negative Final Escherichia coli Stx2 toxin stx2 gene [Presence] in Stool by JYOTI with probe detection 01/09/2024 09:29:09 Negative Negative Final Norovirus genogroups I and II RNA panel - Stool by JYOTI with probe detection 01/09/2024 09:29:09 Negative Negative Final Rotavirus A RNA [Presence] in Stool by JYOTI with probe detection 01/09/2024 09:29:09 Negative Negative Final Performing Location [facility] [place] [address] [address] [facility] [address]
--- OUTSIDE RECORDS SUMMARY | 2024-03-06 12:27 | External Medical Summary | Summary of Care ---
Author Name Unknown Organization [facility] Address [address] [place] [address] Phone [phone] Care Team Providers Care Channel Director Name Role Phone Keagan Sanchez MD Primary Care Provider [phone] Reason for Visit * Reason Onset Date Comments Appointment 01/08/2024 Barium swallow Encounter Details Date Type Department Care Team (Late st Contact Info) Description 01/08/2024 Telephone Gastroenterology, [address] [address] Specified, Zz No Resource [address] [place] [address] Appointment (Barium swallow ) Allergies Active Allergy Reactions Criticality Noted Date Comments Adhesive Tape 03/31/2023 Other Reaction(s): Tape- redness, paper tape/coban "ok", [id number] TAPE OK OR COBAN Clarithromycin High 03/31/2023 [...] Oral Tablet (Zetia)Indications :Coronary artery disease involving [place] coronary artery of [place] heart with unstable angina pectoris (HCC) TAKE [...] hypothyroidism 04/12/2021 Coronary artery disease invo lving [place] coronary artery of [place] heart without angina pectoris 09/27/2020 Last Assessment & Plan: Has 3 stents (2 in LAD one in diagonal), placed at [facility] [address] Womack Followed by [facility] cardiology, Angela Littlejohn, next appt May 2024 [...] brochure offered , patient declined. Mixed dyslipidemia 03/14/200402/15/ 9 Overview: Per Lipid Taxonomy Hypothyroidism 03/14/2004 [...] No 12/20/2023 Does the household have a [facility] source of income? (Household - for ages [...] No 08/24/2023 documented as of this encounter Miscellaneous Notes * Telephone Encounter - Melissa Moore OSA - 01/08/2024 1:41 PM EDT Pt saw leonard tavarez in the office today and ordered a barium swallow please call pt to schedule [place]. documented in this encounter Plan of Treatment Upcoming Encounters Date Type Department Care Team (Late st Contact Info) Description 01/08/2024 2:00 PM EDT Laboratory Laboratory, [facility] [address] [place] [phone] [facility] [address] [place] [address] Left lower quadrant pain; Chronic constipation; Gastroparesis; Gastroesophageal reflux disease without esophagitis; Nonalcoholic fatty liver disease; Abnormal LFTs; Drug-induced acute pancreatitis without infection or necrosis; Abdominal pain, epigastric; Chronic superficial gastritis without bleeding 01/14/2024 10:30 AM EDT Appointment Radiology, [facility] [address] [place] [address] 01/22/2024 1:00 PM EDT Appointment Radiology [facility], [facility] [address] [place], [place] [phone] 02/02/2024 12:30 PM EST Home Visit [facility] [address] [place] [address] Nika Guevara RN [address] [place] [address] 02/05/2024 1:30 PM EST Office Visit Gastroenterology, [facility] [address] [place] [address] Leonard Tavarez CRNP [address] [place] [address] 02/11/2024 10:30 AM EST Telemedicine [facility] [place] [facility] [address] [place] [address] Oriana Isaacs PA-C [address] [place] [address] Edith Garcia, Community Health Demolition Worker [address] [place] [address] 06/07/2024 11:00 AM EDT Office Visit Cardiology [address] [place] [phone] Angela Littlejohn CRNP [address] [place] [address] 06/21/2024 10:40 AM EDT Office Visit Family Practice [facility] [address] [place] [phone] Keagan Sanchez MD [address] [place] [address] 08/09/2024 10:00 AM EDT Office Visit Orthopaedics [place] [facility] [address] [place] [address] Sami Angelo DO [address] [place] [address] 10/07/2024 2:40 PM EDT Office Visit Dermatology [facility] [address] [place] [phone] Alden Ann PA-C [address] [place] [address] 11/25/2024 11:00 AM EDT Office Visit Neurology [facility] [place] [address] [place] [address] Kelly Waddell PA-C [address] [place] [address] Scheduled Procedures Name Priority Associated Diagnoses Date/Ti [...] D LEVEL ONCE IN A LIFETIME-USE SMARTSET# 90652 Completed 01/28/2022, 02/21/2015, 12/30/2011 RETIRED - COLONOSCOPY-EVERY [...] this encounter Medical Devices Implanted Type Area Desktop Analyst Device Identifier Shelf Expiration Date Model / Serial / Lot Medtronic-05/27/2023 Implanted: (Quantity not on file) Neurostimulator MEDTR[employer]IC : NEUROLOGIC PAIN 05/26/2049 [id number] / / [id number] Screw Jami Lacie 3 Ti Set - [id number] Implanted:Qt y: 6 on 03/10/2012 at OR [facility] Bilateral : Spine Lumbar LEVON : SPINE [id number] / / Screw Lacie Pa Ti 6.5x50mm - [id number] Implanted:Qt y: 4 on 03/10/2012 at OR [facility] Bilateral : Spine Lumbar LEVON : SPINE [id number] / / Levon Xia3 7.0 X 40mm Screws Implanted:Qt y: 2 on 03/10/2012 at OR [facility] Bilateral : Spine Lumbar [id number] / / Shaun Lacie 3 Ti 6x70mm - [id number] Implanted:Qt y: 1 on 03/10/2012 at OR [facility] N/A: Spine Lumbar LEVON : SPINE [id number] / / Shaun Lacie 3 Ti Max 6x80mm - [id number] Implanted:Qt y: 1 on 03/10/2012 at OR [facility] N/A: Spine Lumbar LEVON : SPINE [id number] / / 9 X 25 X 4 - 8 Avs Wedge Nose Cage Implanted:Qt y: 1 on 03/10/2012 at OR [facility] N/A: Spine Lumbar [id number] / / Stent Synergy Xd Mr 2.12r44cn - [id number] Implanted:Qt y: 1 on 09/20/2020 at CARDIAC LABS [facility] [employer] Options [id number] 04/18/2022 [id number] / / [id number] Stent Synergy Xd Mr 2.10f75uh - [id number] Implanted:Qt y: 1 on 09/20/2020 at CARDIAC LABS [facility] [employer] [id number] 04/25/2022 [id number] 2220 / / [id number] Screw Locking 4.5mm 15mm - [id number] Implanted:Qt y: 1 on 07/11/2022 by Sami Angelo DO at OR [facility] Right: Shoulder [employer] 11/22/2025 108-4515 / / [id number] Bseplate Jasmeet Cmntlss W Scrw - [id number] Implanted:Qt y: 1 on 07/11/2022 by Sami Angelo DO at OR [facility] Right: Shoulder [employer] 03/24/2027 105-0029 / / [id number] Glenosphere Rev Thee W Scrw - [id number] Implanted:Qt y: 1 on 07/11/2022 by Sami Angelo DO at OR [facility] Right: Shoulder [employer] 04/24/2027 105-3610 / / [id number] Screw Locking 4.5mm 15mm - [id number] Implanted:Qt y: 1 on 07/11/2022 by Sami Angelo DO at OR [facility] Right: Shoulder [employer] 03/24/2027 108-4515 / / [id number] Screw Locking 4.5mm 20mm - [id number] Implanted:Qt y: 1 on 07/11/2022 by Sami Angelo DO at OR [facility] Right: Shoulder [employer] 03/24/2027 108-4520 / / [id number] Humelock Ii Stem Ta6v Size 12 Cementless Implanted:Qt y: 1 on 07/11/2022 by Sami Angelo, DO at OR [facility] Right: Shoulder [employer] 10/22/2026 311-0212 / / [id number] Cortical Screw Ta6v, 5mm, L. 24mm Implanted:Qt y: 1 on 07/11/2022 by Sami Angelo, DO at OR [facility] Right: Shoulder [employer] 09/22/2023 107-4524 / / [id number] Humeral Cup 135/145 Degree, Standard, 36/+6 Implanted:Qt y: 1 on 07/11/2022 by Sami Angelo, DO at OR [facility] Right: Shoulder 02/21/2025 313-0706 / / [id number] Screw Locking 4.5mm 20mm - [id number] Implanted:Qt y: 1 on 07/11/2022 by Sami Angelo, DO at OR [facility] Right: Shoulder [employer] 03/24/2027 108-4520 [...] Agents on File Name Relationship Healthcare Agent [facility] Communication Donny Pace Spouse Health Care Agent Care Teams Channel Director Relationship Specialty Start Date End Date Keagan Sanchez MD [address] [place] [address] PCP - General Family Medicine 10/07/23 documented as of this encounter
--- OUTSIDE RECORDS SUMMARY | 2024-03-06 12:27 | External Medical Summary ---
Author Name Unknown Address Unknown Organization K01:[facility] [address] [place] [address] Laboratory Report Ordering Provider Test Date Status HILARIA HERNANDEZ 01/08/2024 13:51:32 Final Observation Date Value Abnormality Reference (Units ) Status Vitamin B12 01/08/2024 13:51:32 [phone] (pg/mL) Final Performing Location [facility] [address] [place] [address]
--- OUTSIDE RECORDS SUMMARY | 2024-03-06 12:27 | External Medical Summary | Summary of Care ---
Author Name Unknown Organization [facility] Address [address] [place] [address] Phone [phone] Care Team Providers Care Materials Planning Manager Name Role Phone Keagan Jalloh MD Primary Care Provider [phone] Reason for Visit * Reason Comments eRx-Medication Refill Encounter Details Date Type Department Care Team ([facility] st Contact Info) Description 01/31/[address] [address] Keagan Jalloh MD [address] [place] [address] Allergies Active Allergy Reactions Criticality Noted Date Comments Adhesive Tape 03/31/2023 Other Reaction(s): Tape- redness, paper tape/coban "ok", [id number] TAPE OK OR COBAN Clarithromycin High 03/31/2023 Other Reaction(s): Rash, diarrhea, RASH,DIARRHEA Duloxetine Hcl Flushing,Nausea/vomi tin g High 10/20/2019 Erythromycin Base Rash 03/14/2004 Orlistat Low 03/31/2023 Other Reaction(s): GI UPSET Penicillins Rash 03/14/2004 Prednisone Other (Please comment) High 10/10/2023 pancreatitis Sulfa Antibiotics Rash 03/14/2004 documented as of this encounter (statuses as of 01/31/2024) Medications Cholecalciferol (VITAMIN D) 1000 UNIT Capsule [...] Oral Tablet (Zetia)Indicatio ns:Coronary artery disease involving [place] coronary artery of [place] heart with unstable angina pectoris (HCC) TAKE [...] 11 01/29/2024 9:12 AM EST 4 Active documented as of this encounter (statuses as of 01/31/2024) Active Problems Problem Noted Date Diagnosed Date [...] help try prevent future falls History of 2018 novel coronavirus disease (COVID -19) 05/01/2021 Other specified hypothyroidism 04/12/2021 Coronary artery disease invo lving [place] coronary artery of [place] heart without angina pectoris 09/27/2020 Assessment & Plan (12/09/2023 10:51 AM EDT): Has 3 stents (2 in LAD one in diagonal), placed at [facility] [address] Womack Followed by [facility] cardiology, Angela Littlejohn, next [...] as of this encounter (statuses as of 01/31/2024) Resolved Problems Problem Noted Date Diagnosed Date [...] as of this encounter (statuses as of 01/31/2024) Immunizations Name Administration Dates Next Due COVID-19 [...] encounter Miscellaneous Notes * Telephone Encounter - Keagan Jalloh MD - 01/31/2024 11:55 AM ESTRefused Prescriptions: Disp Refills traMADol HCl 50 MG Oral Tablet [Pharmacy M*90 Tab*0 Sig: Take 2Tablets by mouth every 6 hours as needed for moderate painRefused By: Tray JALLOH for Refusal: Other (comment below) documented in this encounter Plan of Treatment Upcoming Encounters Date Type Department Care Team (Late st Contact Info) Description 02/02/2024 12:30 PM EST [facility] Visit [facility], [facility] [address] [place] [address] Nika Guevara RN [address] [place] [address] 02/11/2024 10:30 AM EST Telemedicine [facility] [place], [facility] [address] [place] [address] Oriana Isaacs PA-C [address] [place] [address] Edith Garcia, Community Health Art Director [address], [place] [id number] 06/07/2024 11:00 AM EDT Office Visit Cardiology [facility], [address] [place] [address] Angela Littlejohn CRNP [address] [place] [address] 06/21/2024 10:40 AM EDT Office Visit Family Practice [facility] [address] [place] [phone] Keagan Jalloh MD [address] [place] [address] 08/09/2024 10:00 AM EDT Office Visit Orthopaedics [facility] [address] [place] [address] Sami Angelo DO [address] [place] [address] 10/07/2024 2:40 PM EDT Office Visit Dermatology [address] [phone] Alden Ann PA-C [address] [place] [address] 11/25/2024 11:00 AM EDT Office Visit Neurology [facility] [address] [place] [address] Kelly Waddell PA-C 21 [facility] [place] [address] Scheduled Procedures Name Priority Associated Diagnoses Date/Ti [...] SMARTSET #1146) 07/23/2023 DXA Scan 01/02/2024 01/01/2022, 1203/2016, 12/09/2011, Additional history exists COVID-19 Vaccine ( season) 2024 12/11/2023, 12/24/2021, 07/11/2021, Additional history exists Mammogram 04/24/2024 04/24/2023, 03/2023, 04/24/2023, Additional history exists HbA1c 07/16/2024 07/17/2023, 01/23, 09/20/2020, Additional history exists GFR 01/01/2025 01/02/2024, 0 06/2023, 12/24/2023, Additional history exists TSH 01/07/2025 01/08/2024, 04/2023, 07/17/2023, Additional history exists DTap/Tdap Vaccines (3 - Td or Tdap) 10/10/2026 10/10/2016, 10/26/2005 Albumin/Creatinine Ratio 12/21/2026 12/22/2023 Colonoscopy 04/18/2027 04/18/2022, 03/25, 08/10/2013, Additional history exists Colorectal Cancer Screening 04/18/2027 VITAMIN D LEVEL ONCE IN A LIFETIME-USE SMARTSET# [id number] Completed 01/28/2022, 02/21/2015, 12/30/2011 RETIRED - COLONOSCOPY-EVERY [...] this encounter Medical Devices Implanted Type Area Boom Pump Operator Device Identifier Shelf Expiration Date Model / Serial / Lot Medtronic-05/27/2023 Implanted: (Quantity not on file) Neurostimulator MEDTRONIC : NEUROLOGIC PAIN 05/26/2049 [id number] / / [id number] Screw Jami Lacie 3 Ti Set - [id number] Implanted:Qt y: 6 on 03/10/2012 at [place] [facility] Bilateral : Spine Lumbar LEVON : SPINE [id number] / / Screw Lacie Pa Ti 6.5x50mm - [id number] Implanted:Qt y: 4 on 03/10/2012 at OR [facility] Bilateral : Spine Lumbar LEVON : SPINE [id number] / / Levon Xia3 7.0 X 40mm Screws Implanted:Qt y: 2 on 03/10/2012 at OR [facility] Bilateral : Spine Lumbar [id number] / / Shaun Lacie 3 Ti 6x70mm - [id number] Implanted:Qt y: 1 on 03/10/2012 at OR [facility] N/A: Spine Lumbar LEVON : SPINE [id number] / / Shaun Lacie 3 Ti Max 6x80mm - [id number] Implanted:Qt y: 1 on 03/10/2012 at OR [facility] N/A: Spine Lumbar LEVON : SPINE [id number] / / 9 X 25 X 4 - 8 Avs Wedge Nose Cage Implanted:Qt y: 1 on 03/10/2012 at OR [facility] N/A: Spine Lumbar [id number] / / Stent Synergy Xd Mr 2.34j09hm - [id number] Implanted:Qt y: 1 on 09/20/2020 at [facility] GHash.IO [id number] 04/18/2022 [id number] 6220 / / [id number] Stent Synergy Xd Mr 2.78f76bn - [id number] Implanted:Qt y: 1 on 09/20/2020 at [facility] GHash.IO [id number] 04/25/2022 [id number] 2220 / / [id number] Screw Locking 4.5mm 15mm - [id number] Implanted:Qt y: 1 on 07/11/2022 by Sami Angelo DO at OR [facility] Right: Shoulder [employer] 11/22/2025 108-4515 / / [id number] Bseplate Jasmeet Cmntlss W Scrw - [id number] Implanted:Qt y: 1 on 07/11/2022 by Sami Angelo DO at OR [facility] Right: Shoulder [employer] 03/24/2027 105-0029 / / [id number] Glenosphere Rev Thee W Scrw - [id number] Implanted:Qt y: 1 on 07/11/2022 by Sami Angelo DO at OR [facility] Right: Shoulder [employer] 04/24/2027 105-3610 / / [id number] Screw Locking 4.5mm 15mm - [id number] Implanted:Qt y: 1 on 07/11/2022 by Sami Angelo DO at OR [facility] Right: Shoulder [employer] 03/24/2027 108-4515 / / [id number] Screw Locking 4.5mm 20mm - [id number] Implanted:Qt y: 1 on 07/11/2022 by Sami Angelo DO at OR [facility] Right: Shoulder [employer] 03/24/2027 108-4520 / / [id number] Humelock Ii Stem Ta6v Size 12 Cementless Implanted:Qt y: 1 on 07/11/2022 by Sami Angelo DO at OR [facility] Right: Shoulder [employer] 10/22/2026 [id number] / / [id number] Cortical Screw Ta6v, 5mm, L. 24mm Implanted:Qt y: 1 on 07/11/2022 by Sami Angelo DO at OR [facility] Right: Shoulder [employer] 09/22/2023 107-4524 / / [id number] Humeral Cup 135/145 Degree, Standard, 36/+6 Implanted:Qt y: 1 on 07/11/2022 by Sami Angelo DO at OR [facility] Right: Shoulder 02/21/2025 313-0706 / / [id number] Screw Locking 4.5mm 20mm - [id number] Implanted:Qt y: 1 on 07/11/2022 by Sami Angelo DO at OR [facility] Right: Shoulder FX SOLUTIONS [...] Agents on File Name Relationship Healthcare Agent [facility] p Communication Donny Pace Spouse Health Care Agent Care Teams Materials Planning Manager Relationship Specialty Start Date End Date Keagan Jalloh MD [address] [place] [address] PCP - General Family Medicine 10/07/23 documented as of this encounter
--- OUTSIDE RECORDS SUMMARY | 2024-03-06 12:28 | External Medical Summary | Summary of Care ---
Author Name Unknown Organization [facility] Address [address] [facility] [place] [address] Phone [phone] Care Team Providers Care Refrigerator Tester Name Role Phone Keagan Sanchez MD Primary Care Provider [phone] Reason for Visit * Reason Onset Date Comments [facility]: Maintenance 01/03/2024 Encounter Details Date Type Department Care Team (Late st Contact Info) Description 01/03/2024 12:00 PM EDT Scheduled Telephone [facility], [facility] [address] [place] [address] [facility], Nurse [address] [address] Allergies Active Allergy Reactions Criticality Noted Date Comments Adhesive Tape 03/31/2023 Other Reaction(s): Tape- redness, paper tape/coban "ok", [id number] TAPE OK OR COBAN Clarithromycin High 03/31/2023 Other Reaction(s): Rash, diarrhea, RASH,DIARRHEA Duloxetine Hcl Flushing,Nausea/vomi tin g High 10/20/2019 Erythromycin Base Rash 03/14/2004 Orlistat Low 03/31/2023 Other Reaction(s): GI UPSET Penicillins Rash 03/14/2004 Prednisone Other (Please comment) High 10/10/2023 pancreatitis Sulfa Antibiotics Rash 03/14/2004 documented as of this encounter (statuses as of 01/03/2024) Medications Medication Sig Dispensed Refills Start Date End Date Status Cholecalciferol (VITAMIN D) 1000 UNIT Capsule Take 1 Cap by mouth daily. 30 Cap 11 03/09/2015 Active Sennosides (SENNA) 8.6 MG Tablet TAKE 2 TABLETS BY MOUTH DAILY NEEDED FOR CONSTIPATION. 60 Tab 5 02/13/2016 Active Aspirin 81 MG Oral Tablet Chewable Take 1 Tab by mouth daily. 30 Tab 11 02/27/2020 Active Pantoprazole Sodium 40 MG Oral Tablet Delayed Release (Protonix) TAKE ONE TABLET BY MOUTH EVERY DAY 30 MNUTES PRIOR TO FIRST MEAL OF THE DAY, DO NOT CRUSH SPLIT OR CHEW TABLET 90 Tablet 3 03/07/2023 03/06/2024 Active Atorvastatin Calcium 80 MG Oral Tablet [...] MORNING 90 Tablet 3 05/26/2023 05/25/2024 Active Sucralfate 1 GM Oral Tablet (Carafate) TAKE ONE TABLET BY MOUTH IN THE MORNING AND TAKE ONE TABLET BEFORE BEDTIME 180 Tablet 3 07/25/2023 07/24/2024 Active Levalbuterol HCl 1.25 MG/3ML Inhalation Nebulization Solution (Xopenex)Indicatio ns:Acute cough,Shortness of breath,Bronchitis Inhale 1 Ampule via nebulizer every 4 hours as needed for Wheezing. 72 mL 12 08/15/2023 Active Metoprolol Succinate ER 25 MG Oral Tablet Extended Release 24 Hour (toPROL XL)Indications:Atr ial flutter, unspecified type (HCC) TAKE ONE TABLET BY MOUTH IN THE MORNING. 90 Tablet 3 08/28/2023 08/27/2024 Active Levalbuterol Tartrate 45 MCG/ACT Inhalation Aerosol (Xopenex HFA)Indications:Sh ortness of breath,Bronchitis, complicated Inhale 2 Puffs by mouth every 4 hours as needed for Wheezing. 15 g 12 09/09/2023 Active hydrOXYzine HCl 50 MG Oral Tablet Take 1 Tablet by mouth 3 times a day as needed for Anxiety (hyperventilation) . 30 Tablet 09/12/2023 Active Baclofen 20 MG Oral Tablet TAKE ONE TABLET BY MOUTH FOUR TIMES A DAY (MORNING, NOON, EVENING AND BEDTIME) 360 Tablet 09/26/2023 Active Metoclopramide HCl 10 MG Oral Tablet (Reglan) TAKE ONE TABLET BY MOUTH THREE TIMES A DAY THIRTY MINUTES BEFORE MEALS 270 Tablet 09/26/2023 09/25/2024 Active Sertraline HCl 100 MG Oral Tablet (Zoloft) 09/23/2023 Active Famotidine 20 MG Oral Tablet (Pepcid)Indication s:Abdominal pain, epigastric,Chronic superficial gastritis without bleeding Take 1 Tablet by mouth in the morning and 1 Tablet before bedtime. 60 Tablet 11 10/10/2023 Active Lactulose 10 GM/15ML Oral Solution (Constulose) Take 15 mL by mouth 2 times a day as needed for Constipation. severe constipation 237 mL 1 11/03/2023 Active metFORMIN HCl 500 MG Oral Tablet (Glucophage) Take 1 Tablet by mouth 2 times a day with morning and evening meals. 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 15 Tablet 01/02/2024 Active documented as of this encounter (statuses as of 01/03/2024) Active Problems Problem Noted Date Diagnosed Date [...] shoulder arthroplasty, right 0 07/16/2022 Age-related osteoporosis jorge van current pathological fracture 03/05/2022 Last Assessment & [...] hypothyroidism 04/12/2021 Coronary artery disease invo lving [place] coronary artery of [place] heart without angina pectoris 09/27/2020 Last Assessment & Plan: Has 3 stents (2 in LAD one in diagonal), placed [place] [facility] [place] [address] Womack Followed by [facility] cardiology, Angela Littlejohn, next appt May 2024 [...] as of this encounter (statuses as of 01/03/2024) Resolved Problems Problem Noted Date Diagnosed Date [...] offered , patient declined. Mixed dyslipidemia 03/14/2004 Overview: Per Lipid Taxonomy Hypothyroidism 03/14/2004 03/28/2023 Overview: A more specified Dx is now on the PL Colitis, acute 07/16/2022 Overview: Acute condition Ulcerative colitis, unspecified 04/21/2008 Herpetic vulvovaginitis 06/23 documented as of this encounter (statuses as of 01/03/2024) Immunizations Name Administration Dates Next Due COVID-19 mRNA, LNP-s, No Pre serve, 2-Dose Series (Moderna) 01/17/2021,05/23/2020,04/17/2020 COVID-19, MRNA-LNP, 24-25, P R, 30MCG/0.3ML, IM, 12YRS AND ABOVE (Pfizer-Comirnaty) 12/11/2023 COVID-19, mRNA, LNP-s, PF, B ooster, 100mcg/0.5mg (Moderna) 07/11/2021 Covid-19, Mrna, Lnp-s, Pf, B ivalent, 50 Mcg, IM, 12 yrs and above (Moderna) 12/24/2021 Seasonal Influenza Vac., MDV , IM, 0.5 mL (Fluzone) 12/08/2014,01/12/2013,11/26/2011,10/19/2 011 Seasonal Influenza, MDCK, Tr ivalent, PF, [...] encounter Miscellaneous Notes * Telephone Encounter - Nika Guevara RN - 01/03/2024 10:23 AM EDT F/u ED PC; LMOM to call [facility] with any urgent concerns documented in this encounter Plan of Treatment Upcoming Encounters Date Type Department Care Team (Late st Contact Info) Description 01/08/2024 1:00 PM EDT Office Visit Gastroenterology, [facility] [address] [place] [address] Rachael Tavarez CRNP [address] [place] [address] 02/02/2024 12:30 PM EST [facility] Visit [facility], [facility] [address] [place] [address] Nika Guevara RN [address] [place] [address] 02/11/2024 10:30 AM EST Telemedicine [facility], [facility] [address] [place] [address] Oriana Isaacs PA-C [address] [place] [address] Edith Garcia, Community Health Dipper And Drier [address] [place] [address] 06/07/2024 11:00 AM EDT Office Visit Cardiology [address] [address] Angela Littlejohn CRNP [address] [place] [address] 06/21/2024 10:40 AM EDT Office Visit Family Practice [facility] [address] [place] [address] Keagan Sanchez MD [address] [place] [address] 08/09/2024 10:00 AM EDT Office Visit Orthopaedics [facility] [address] [place] [address] Sami Angelo DO [address] [place], [place] [address] 10/07/2024 2:40 PM EDT Office Visit Dermatology [facility] [address] [place] [phone] Alden Ann PA-C [address] [place], [place] [phone] 11/25/2024 11:00 AM EDT Office Visit Neurology [facility] [address] [place] [address] Kelly Waddell PA-C [address] [place] [address] Scheduled Procedures Name Priority Associated Diagnoses Date/Ti [...] D LEVEL ONCE IN A LIFETIME-USE SMARTSET# [id number] Completed 01/28/2022, 02/21/2015, 12/30/2011 RETIRED - COLONOSCOPY-EVERY [...] this encounter Medical Devices Implanted Type Area Network Support Specialist Device Identifier Shelf Expiration Date Model / Serial / Lot Medtronic-05/27/2023 Implanted: (Quantity not on file) Neurostimulator MEDTRONIC : NEUROLOGIC PAIN 05/26/2049 [id number] / / [id number] Screw Jami Lacie 3 Ti Set - [id number] Implanted:Qt y: 6 on 03/10/2012 at [place] [facility] Bilateral : Spine Lumbar LEVON : SPINE [id number] / / Screw Lacie Pa Ti 6.5x50mm - [id number] Implanted:Qt y: 4 on 03/10/2012 at OR [facility] Bilateral : Spine Lumbar LEVON : SPINE [id number] / / [place] Xia3 7.0 X 40mm Screws Implanted:Qt y: 2 on 03/10/2012 at OR [facility] Bilateral : Spine Lumbar [id number] / / Shaun Lacie 3 Ti 6x70mm - [id number] Implanted:Qt y: 1 on 03/10/2012 at [place] [facility] N/A: Spine Lumbar LEVON : SPINE [id number] / / Shaun Lacie 3 Ti Max 6x80mm - [id number] Implanted:Qt y: 1 on 03/10/2012 at OR [facility] N/A: Spine Lumbar LEVON : SPINE [id number] / / 9 X 25 X 4 - 8 Avs Wedge Nose Cage Implanted:Qt y: 1 on 03/10/2012 at OR [facility] N/A: Spine Lumbar [id number] / / Stent Synergy Xd Mr 2.87l76rj - [id number] Implanted:Qt y: 1 on 09/20/2020 at [facility] Spunkmobile [id number] 04/18/2022 [id number] / / [id number] Stent Synergy Xd Mr 2.67r24ix - [id number] Implanted:Qt y: 1 on 09/20/2020 at [facility] [employer] [id number] 04/25/2022 [id number] 2220 / / [id number] Screw Locking 4.5mm 15mm - [id number] Implanted:Qt y: 1 on 07/11/2022 by Sami Angelo DO at [place] [facility] Right: Shoulder [employer] 11/22/2025 108-4515 / / [id number] Bseplate Jasmeet Cmntlss W Scrw - [id number] Implanted:Qt y: 1 on 07/11/2022 by Sami Angelo DO at OR [facility] Right: Shoulder [employer] 03/24/2027 105-0029 / / [id number] [place] Rev Thee W Scrw - [id number] Implanted:Qt y: 1 on 07/11/2022 by Sami Angelo DO at [facility] Right: Shoulder [employer] 04/24/2027 105-3610 / / [id number] Screw Locking 4.5mm 15mm - [id number] Implanted:Qt y: 1 on 07/11/2022 by Sami Angelo DO at [place] [facility] Right: Shoulder [employer] 03/24/2027 108-4515 / / [id number] Screw Locking 4.5mm 20mm - [id number] Implanted:Qt y: 1 on 07/11/2022 by Sami Angelo DO at [place] [facility] Right: Shoulder [employer] 03/24/2027 108-4520 / / [id number] Humelock Ii Stem Ta6v Size 12 Cementless Implanted:Qt y: 1 on 07/11/2022 by Sami Angelo DO at [place] [facility] Right: Shoulder [employer] 10/22/2026 311-0212 / / [id number] Cortical Screw Ta6v, 5mm, L. 24mm Implanted:Qt y: 1 on 07/11/2022 by Sami Angelo DO at [place] [facility] Right: Shoulder [employer] 09/22/2023 107-4524 / / [id number] Humeral Cup 135/145 Degree, Standard, 36/+6 Implanted:Qt y: 1 on 07/11/2022 by Sami Angelo DO at [place] [facility] Right: Shoulder 02/21/2025 313-0706 / / [id number] Screw Locking 4.5mm 20mm - [id number] Implanted:Qt y: 1 on 07/11/2022 by Sami Angelo DO at [place] [facility] Right: Shoulder [employer] 03/24/2027 108-4520 [...] File Name Relationship Healthcare Agent [facility] p Communication Donny Pace Spouse Health Care Agent Care Teams Refrigerator Tester Relationship Specialty Start Date End Date Keagan Sanchez MD [address] [place] [phone] PCP - General Family Medicine 10/07/23 documented as of this encounter
--- OUTSIDE RECORDS SUMMARY | 2024-03-06 12:28 | External Medical Summary | Summary of Care ---
Author Name Unknown Organization [facility] Address [address] [place] [address] Phone [phone] Care Team Providers Care Rn Mobile Name Role Phone Keagan Sanchez MD Primary Care Provider [phone] Encounter Details Date Type Department Care Team (Late st Contact Info) Description 01/05/2024 Population Health External Data Unspecified Department Allergies Active Allergy Reactions Criticality Noted Date Comments Adhesive Tape 03/31/2023 Other Reaction(s): Tape- redness, paper tape/coban "ok", [id number] TAPE OK OR COBAN Clarithromycin High 03/31/2023 Other Reaction(s): Rash, diarrhea, RASH,DIARRHEA Duloxetine Hcl Flushing,Nausea/vomi tin g High 10/20/2019 Erythromycin Base Rash 03/14/2004 Orlistat Low 03/31/2023 Other Reaction(s): GI UPSET Penicillins Rash 03/14/2004 Prednisone Other (Please comment) High 10/10/2023 pancreatitis Sulfa Antibiotics Rash 03/14/2004 documented as of this encounter (statuses as of 01/05/2024) Medications Medication Sig Dispensed Refills Start Date [...] Anxiety (hyperventilation) . 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 Womack Followed by [facility] cardiology, Angela Littlejohn, next appt May 2024 [...] as of this encounter (statuses as of 01/05/2024) Resolved Problems Problem Noted Date Diagnosed Date [...] as of this encounter (statuses as of 01/05/2024) Immunizations Name Administration Dates Next Due COVID-19 [...] 01/08/2024 1:00 PM EDT Office Visit Gastroenterology, [facility] [address] [address] Rachael Tavarez CRNP [address] [address] 02/02/2024 12:30 PM EST Home Visit [facility] [place], [facility] [address] [place] [address] Nika Guevara RN [address] [place] [address] 02/11/2024 10:30 AM EST Telemedicine [facility] [place] [address] [place] [address] Oriana Isaacs PA-C [address] [place] [address] Edith Garcia, [facility] [address] [place] [address] 06/07/2024 11:00 AM EDT Office Visit Cardiology [facility] [address] [facility] [address] [place] [phone] Angela Littlejohn CRNP [address] [place] [address] 06/21/2024 10:40 AM EDT Office Visit Family [facility] [address] [place] [phone] Keagan Sanchez MD [address] [place] [address] 08/09/2024 10:00 AM EDT Office Visit Orthopaedics [facility] [address] [place] [phone] Sami Angelo DO [address] [place] [address] 10/07/2024 2:40 PM EDT Office Visit Dermatology [facility] [address] [place] [phone] Alden Ann PA-C [address] [place] [address] 11/25/2024 11:00 AM EDT Office Visit Neurology [facility] [place] [address] [facility] [place] [address] Kelly Waddell PA-C [address] [facility] [address] [place] [address] Scheduled Procedures Name Priority Associated Diagnoses Date/Ti [...] D LEVEL ONCE IN A LIFETIME-USE SMARTSET# [id number] Completed 01/28/2022, 02/21/2015, 12/30/2011 RETIRED - COLONOSCOPY-EVERY [...] this encounter Medical Devices Implanted Type Area Distillery Miller Device Identifier Shelf Expiration Date Model / Serial / Lot Medtronic-05/27/2023 Implanted: (Quantity not on file) Neurostimulator MED[employer] : NEUROLOGIC PAIN 05/26/2049 [id number] / / [id number] Screw Jami Lacie 3 Ti Set - [id number] Implanted:Qt y: 6 on 03/10/2012 at [facility] Bilateral : Spine Lumbar LEVON : SPINE [id number] / / Screw Lacie Pa Ti 6.5x50mm - [id number] Implanted:Qt y: 4 on 03/10/2012 at [facility] Bilateral : Spine Lumbar LEVON : SPINE [id number] / / [place] Xia3 7.0 X 40mm Screws Implanted:Qt y: 2 on 03/10/2012 at OR [facility] Bilateral : Spine Lumbar [id number] / / Shaun Lacie 3 Ti 6x70mm - [id number] Implanted:Qt y: 1 on 03/10/2012 at [facility] N/A: Spine Lumbar LEVON : SPINE [id number] / / Shaun Lacie 3 Ti Max 6x80mm - [id number] Implanted:Qt y: 1 on 03/10/2012 at OR [facility] N/A: Spine Lumbar LEVON : SPINE [id number] / / 9 X 25 X 4 - 8 Avs Wedge Nose Cage Implanted:Qt y: 1 on 03/10/2012 at OR [facility] N/A: Spine Lumbar [id number] / / Stent Synergy Xd Mr 2.63c15qw - [id number] Implanted:Qt y: 1 on 09/20/2020 at [facility] [employer] [id number] 04/18/2022 [id number] / / [id number] Stent Synergy Xd Mr 2.44v08vm - [id number] Implanted:Qt y: 1 on 09/20/2020 at [facility] [employer] [id number] 04/25/2022 [id number] / / [id number] Screw Locking 4.5mm 15mm - [id number] Implanted:Qt y: 1 on 07/11/2022 by Sami Angelo DO at OR [facility] Right: Shoulder [employer] 11/22/2025 108-4515 / / [id number] Bseplate Jasmeet Cmntlss W Scrw - [id number] Implanted:Qt y: 1 on 07/11/2022 by Sami Angelo DO at OR [facility] Right: Shoulder [employer] 03/24/2027 105-0029 / / [id number] Glenosphere Rev Thee W Scrw - [id number] Implanted:Qt y: 1 on 07/11/2022 by Sami Angelo DO at OR [facility] Right: Shoulder [employer] 04/24/2027 105-3610 / / [id number] Screw Locking 4.5mm 15mm - [id number] Implanted:Qt y: 1 on 07/11/2022 by Sami Angelo DO at OR [facility] Right: Shoulder [employer] 03/24/2027 108-4515 / / [id number] Screw Locking 4.5mm 20mm - [id number] Implanted:Qt y: 1 on 07/11/2022 by Sami Angelo DO at OR [facility] Right: Shoulder [employer] 03/24/2027 108-4520 / / [id number] [place] Ii Stem Ta6v Size 12 Cementless Implanted:Qt y: 1 on 07/11/2022 by Sami Angelo DO at OR [facility] Right: Shoulder [employer] 10/22/2026 [id number] / / [id number] Cortical Screw Ta6v, 5mm, L. 24mm Implanted:Qt y: 1 on 07/11/2022 by aSmi Angelo DO at OR [facility] Right: Shoulder [employer] 09/22/2023 107-4524 / / [id number] Humeral Cup 135/145 Degree, Standard, 36/+6 Implanted:Qt y: 1 on 07/11/2022 by Sami Angelo, at [facility] Right: Shoulder 02/21/2025 [id number] / / [id number] Screw Locking 4.5mm 20mm - [id number] Implanted:Qt y: 1 on 07/11/2022 by Sami Angelo, at OR [facility] Right: Shoulder [employer] 03/24/2027 108-4520 [...] 5:57 PM 04/03/2021 3:12 PM This order r eflects the patients wishes and were consensually agreed upon. Question Answer Comments Discussion of Advance Directives occurred with: Patient Does the patient have a Living Will? No Does the patient have Health Care Power of Attor toñito? No * Full Code Date Activated Date Inactivated Comments 09/19/2020 9:11 PM 09/21/2020 4:20 PM This order r eflects the patients wishes and were consensually agreed upon. Question Answer Comments Discussion of Advance Directives occurred with: Patient Healthcare Agents on File Name Relationship Healthcare Agent Relationshi p Communication Donny Pace Spouse Health Care Agent Care Teams Rn Mobile Relationship Specialty Start Date End Date Keagan Sanchez MD [address] [place] [id number] PCP - General Family Medicine 10/07/23 documented as of this encounter
--- OUTSIDE RECORDS SUMMARY | 2024-03-06 12:28 | External Medical Summary | Summary of Care ---
Author Name Unknown Organization [facility] Address [address] [place] [address] Phone [phone] Care Team Providers Care Gold Miner Name Role Phone Keagan Sanchez MD Primary Care Provider [phone] Reason for Visit * Reason Comments Pain Fell Friday afternoo n * Auth/Cert Specialty Diagnoses / Procedures Referred By Lynn t Referred To Contact [facility] [address] [place] [address] Phone: [phone] Emergency Medicine [facility] [address] [place] [address] Referral ID Status Reason Start Date Expiration Date Visits Re quested Visits Authorized [id number] Encounter Details Date Type Department Care Team (Late st Contact Info) Description 01/02/2024 9:33 AM EDT - 01/02/2024 11:54 AM EDT Emergency [facility] ([facility]) [address] [place] [address] Mario Mckeon MD [address] [place] [id number] Closed fracture of one rib, unspecified laterality, initial encounter (Primary Dx) Discharge Disposition: Home - Self Care Allergies Active Allergy Reactions Criticality Noted Date Comments Adhesive Tape 03/31/2023 Other Reaction(s): Tape- redness, paper tape/coban "ok", [id number] TAPE OK OR COBAN Clarithromycin High 03/31/2023 Other Reaction(s): Rash, diarrhea, RASH,DIARRHEA Duloxetine Hcl Flushing,Nausea/vomi tin g High 10/20/2019 Erythromycin Base Rash 03/14/2004 Orlistat Low 03/31/2023 Other Reaction(s): GI UPSET Penicillins Rash 03/14/2004 Prednisone Other (Please comment) High 10/10/2023 pancreatitis Sulfa Antibiotics Rash 03/14/2004 documented as of this encounter (statuses as of 01/02/2024) Medications Medication Sig Dispensed Refills Start Date [...] OR CHEW TABLET 90 Tablet 3 03/07/2023 4 Active Atorvastatin Calcium 80 MG Oral Tablet (Lipitor) TAKE ONE TABLET BY MOUTH EVERY EVENING 90 Tablet 3 03/15/2023 4 Active Nitroglycerin 0.4 MG Sublingual Tablet Sublingual (Nitrostat) Place 1 Tablet under the tongue every 5 minutes as needed for Pain, Chest. 25 Tablet 1 03/27/2023 Active Additional Information Patient not taking.Reported on 12/22/2023 amLODIPine Besylate 5 MG Oral Tablet (Norvasc) TAKE ONE TABLET BY MOUTH IN THE MORNING 90 Tablet 3 05/26/2023 5 Active Sucralfate 1 GM Oral Tablet (Carafate) TAKE ONE TABLET BY MOUTH IN THE MORNING AND TAKE ONE TABLET BEFORE BEDTIME 180 Tablet 3 07/25/2023 5 Active Levalbuterol HCl 1.25 MG/3ML Inhalation Nebulization Solution (Xopenex)Indicati ons:Acute cough,Shortness of breath,Bronchitis Inhale 1 Ampule via nebulizer every 4 hours as needed for Wheezing. 72 mL 12 08/15/2023 Active Metoprolol Succinate ER 25 MG Oral Tablet Extended Release 24 Hour (toPROL XL)Indications:At rial flutter, unspecified type (HCC) TAKE ONE TABLET BY MOUTH IN THE MORNING. 90 Tablet 3 08/28/2023 5 Active Levalbuterol Tartrate 45 MCG/ACT Inhalation Aerosol (Xopenex HFA)Indications:S hortness of breath,Bronchitis , complicated Inhale 2 Puffs by mouth every 4 hours as needed for Wheezing. 15 g 12 09/09/2023 Active hydrOXYzine HCl 50 MG Oral Tablet Take 1 Tablet by mouth 3 times a day as needed for Anxiety (hyperventilation ). 30 Tablet 09/12/2023 Active Baclofen 20 MG Oral Tablet TAKE ONE TABLET BY MOUTH FOUR TIMES A DAY (MORNING, NOON, EVENING AND BEDTIME) 360 Tablet 09/26/2023 Active Metoclopramide HCl 10 MG Oral Tablet (Reglan) TAKE ONE TABLET BY MOUTH THREE TIMES A DAY THIRTY MINUTES BEFORE MEALS 270 Tablet 09/26/2023 5 Active Sertraline HCl 100 MG Oral Tablet (Zoloft) 09/23/2023 Active Famotidine 20 MG Oral Tablet (Pepcid)Indicatio ns:Abdominal pain, epigastric,Chroni c superficial gastritis without bleeding Take 1 Tablet [...] 11/06/2023 Active Ezetimibe 10 MG Oral Tablet (Zetia)Indication s:Coronary artery disease involving [place] coronary artery of [place] heart with unstable angina pectoris (HCC) TAKE ONE TABLET BY MOUTH EVERY MORNING 90 Tablet 3 11/07/2023 5 Active Levothyroxine Sodium 112 MCG Oral Tablet (Levoxyl) TAKE 1 TABLET BY MOUTH DAILY AT LEAST 30 MINUTES PRIOR TO FIRST MEAL OF THE DAY OR OTHER MEDICATIONS 90 Tablet 1 11/21/2023 5 Active Topiramate 25 MG Oral Tablet (topAMAX) [...] 12/19/2023 Active Gabapentin 600 MG Oral Tablet (Neurontin)Indica tions:DDD (degenerative disc disease), cervical,Postlami nectomy syndrome, lumbar Take 2 tabs in morning, 2 tabs at lunch and 2 tabs at night 180 Tablet 5 12/25/2023 Active traMADol HCl 50 MG Oral Tablet (Ultram) Take 1 Tablet by mouth every 6 hours as needed for Pain, Moderate. 15 Tablet 01/02/2024 Active traMADol HCl 50 MG Oral Tablet (Ultram)Indicatio ns:Postlaminectom y syndrome, lumbar Take 2 Tablets by mouth every 6 hours as needed for moderate pain. Refill on or after 12/30/2023 240 Tablet 12/22/2023 Discontinue d(Refill) documented as of this encounter (statuses as of 01/02/2024) Active Problems Problem Noted Date Diagnosed Date [...] hypothyroidism 04/12/2021 Coronary artery disease invo lving [place] coronary artery of [place] heart without angina pectoris 09/27/2020 Last Assessment & Plan: Has 3 stents (2 in LAD one in diagonal), placed at [facility] [address] Womack Followed by [facility] cardiology, Angela Littlejohn, [...] as of this encounter (statuses as of 01/02/2024) Resolved Problems Problem Noted Date Diagnosed Date [...] as of this encounter (statuses as of 01/02/2024) Immunizations Name Administration Dates Next Due COVID-19 [...] No 12/20/2023 Does the household have a [facility] source of income? (Household - for ages [...] Sign Reading Time Taken Comments Blood Pressure 125/60 01/02/2024 11:00 AM EDT Pulse 53 01/02/2024 11:00 AM EDT Temperature 37 C (98.6 F) 01/02/2024 9:35 AM EDT Respiratory Rate 12 01/02/2024 11:00 AM EDT Oxygen Saturation 97% 01/02/2024 11:00 AM EDT Inhaled Oxygen Concentration - - Weight 78.9 kg (174 lb) 01/02/2024 9:35 AM EDT Height 162.6 cm (5' 4") 01/02/2024 9:35 AM EDT Body Mass Index 29.87 01/02/2024 9:35 AM EDT documented in this encounter Functional Status [...] No 08/24/2023 documented as of this encounter ED Notes * Mario Mckeon MD - 01/02/2024 9:50 AM EDT HISTORY OF PRESENT ILLNESS Shalini Pace is a 63 year old female who presents to the ED for evaluation of Pain (). The patient was seen at 01/02/24 0944. Patient had a fall 2 days ago complaining of back neck and side pain has gotten progressively worse over the last few days Back Pain Location: Thoracic spine and lumbar spine Quality: Aching Pain severity: Moderate Onset quality: Gradual Timing: Constant Chronicity: New Relieved by: Being still Worsened by: Movement Ineffective treatments: None tried Review of Systems Musculoskeletal: Positive for back pain. All other systems reviewed and are negative. The patient's allergies, past history, and medications were reviewed. PHYSICAL EXAM Initial Vitals (see all): BP 130/68 | Pulse 55 | Resp 18 | Temp 98.6 | O2 99 %Weight 78.93 kg | Height 162.6 cm | BMI 29.87 kg/m2 Initial Pain Assessment (see all): 10 (severe pain)/10, Stabbing , Sharp, location: right side ([facility] Scale 0-10) Physical Exam Vitals and nursing note reviewed. Constitutional: General: She is not in acute distress. Appearance: She is well-developed. HENT: Head: Normocephalic and atraumatic. Eyes: Conjunctiva/sclera: Conjunctivae normal. Cardiovascular: Rate and Rhythm: Normal rate and regular rhythm. Heart sounds: No murmur heard. Pulmonary: Effort: Pulmonary effort is normal. No respiratory distress. Breath sounds: Normal breath sounds. Abdominal: Palpations: Abdomen is soft. Tenderness: There is no abdominal tenderness. Musculoskeletal: General: Swelling and tenderness present. Cervical back: Neck supple. Skin: General: Skin is warm and dry. Capillary Refill: Capillary refill takes less than 2 seconds. Neurological: Mental Status: She is alert. Psychiatric: Mood and Affect: Mood normal. PROCEDURES AND TREATMENTS ED Orders | ED Results MEDICAL DECISION MAKING Nursing notes and vital signs were reviewed. Amount and/or Complexity of Data Reviewed External Data Reviewed: labs. Labs: ordered. Radiology: ordered. Risk Prescription drug management. Clinical Impressions Closed fracture of one rib, unspecified laterality, initial encounter Disposition Discharged. The patient's condition at disposition was: stable. Discharge Medications Disp Refills Start End traMADol HCl 50 MG Oral Tablet (Ultram) 15 Tablet 0 01/02/2024 -- Sig - Route: Take 1 Tablet by mouth every 6 hours as needed for Pain, Moderate. - Oral Class: No Print Notes to Pharmacy: Discharge Order: No prior authorization was found for this prescription. Found prior authorization for another prescription for the same medication: Closed - Prior Authorization not required for patient/medication Renewals Renewal requests to authorizing provider (Mario Mckeon MD) <b>prohibited</b> Mario Mckeon * Char Ortega RN - 01/02/2024 9:36 AM EDT Patient A&Ox4, arrived after trying to get in to see PCP today but no appointments today and sent here for evaluation. Patient stated she fell Friday, was dusting, stood on the bed to dust the ceiling fan, lost balance, and fell backwards onto right side. Known if she LOC. Since has been havinglower back pain, right side pain, right shoulder pain, lower neck pain, increased numbness in b/l arms but does have a history of neuropathy. documented in this encounter Miscellaneous Notes * Pt Handout (on AVS) - Mario Mckeon MD - 01/02/2024 11:30 AM EDT Images from the original note were not included. [id number] Rib Fracture You broke 1 or more ribs. This is called a rib fracture. Rib fractures don't need a cast like otherbones. They will heal by themselves in about 4 to 6 weeks. The first 3 to 4 weeks will be the most painful. During this time deep breathing, coughing, or changing position from sitting to lying down,may cause the broken ends to move slightly. Home care Rest. Don't do any heavy lifting or strenuous exertion until the pain goes away. It hurts to breathe when you have a broken rib. This puts you at risk of getting pneumonia from poor airflow through your lungs. To prevent this: o Take a few very deep breaths once an hour while you're awake. Breathe out through pursed lips as if you are blowing up a balloon. If possible, actually blow up a balloon or a rubber glove. This exercise builds up pressure inside the lung and prevents collapse of the small air sacs of the lung. This exercise may cause some pain at the site of injury. This is normal. o You may have gotten a breathing exercise device called an incentive spirometer. Use it at least 4times a day, or as directed. Apply an ice pack over the injured area for 15 to 20 minutes every 1 to 2 hours. Do this for thefirst 24 to 48 hours. To make an ice pack, put ice cubes in a plastic bag that seals at the top. Wrap the bag in a clean, thin towel or cloth. Never put ice or an ice pack directly on your skin. Keepusing ice packs as needed to ease pain and swelling. You may use mkan-xwz-hdwcikc pain medicine to control pain, unless another pain medicine was prescribed. If you have chronic liver or kidney disease or ever had a stomach ulcer, gastrointestinal bleeding, or take a blood thinner, talk with your healthcare provider before using these medicines. If your pain is not controlled, contact your provider. Sometimes a stronger pain medicine may beneeded. A nerve block can be done in case of severe pain. It will numb the nerve between the ribs. Follow-up care Follow up with your healthcare provider, or as advised. In rare cases, a broken rib will cause complications in the first few days that may not be clearly seen during your initial exam. This can include collapsed lung, bleeding around the lung or into the belly (abdomen), or pneumonia. So watch forthe signs below. If X-rays were taken, you will be told of any new findings that may affect your care. Call 911 Call 911 if you have: Dizziness, weakness or fainting Shortness of breath with or without chest discomfort New or worsening abdominal pain Discomfort in other areas of your upper body such as your shoulders, jaw, neck, or arms When to get medical advice Call your healthcare provider right away if any of these occur: Increasing chest pain with breathing Fever of 100.4F (38C) or above, or as directed by your provider Chills Congested cough, nausea, or vomiting Last Reviewed Date: 2021 00:00:00 [id number] [employer]. All rights reserved. This information is not intended as a substitute for professional medical care. Always follow your healthcare professional's instructions. documented in this encounter Plan of Treatment Upcoming Encounters Date Type Department Care Team (Late st Contact Info) Description 01/03/2024 12:00 PM EDT Scheduled Telephone [facility] [address] [place] [address] [facility], Nurse [facility] [address] [place] [address] 01/08/2024 1:00 PM EDT Office Visit Gastroenterology, [address] [place] [address] Rachael Tavarez CRNP [address] [facility] [address] 02/02/2024 12:30 PM EST Home Visit [facility] [address] [place] [address] Nika Guevara RN [address] [place] [address] 02/11/2024 10:30 AM EST Telemedicine [facility] [address] [place] [address] Oriana Isaacs PA-C [address] [place] [address] Edith Garcia, [facility] Liaison [address] [place] [address] 06/07/2024 11:00 AM EDT Office Visit Cardiology [address] [place] [phone] Angela Littlejohn CRNP [address] [place] [address] 06/21/2024 10:40 AM EDT Office Visit Family Practice [facility] [address] [place] [address] Keagan Sanchez MD [address] [place] [address] 08/09/2024 10:00 AM EDT Office Visit Orthopaedics [facility] [address] [place] [phone] Sami Angelo DO [address] [place] [address] 10/07/2024 2:40 PM EDT Office Visit Dermatology [facility] [address] [place] [phone] Alden Ann PA-C [address] [place] [address] 11/25/2024 11:00 AM EDT Office Visit Neurology [facility] [address] [place] [address] Kelly Waddell PA-C [address] [place] [address] Scheduled Procedures Name Priority Associated Diagnoses Date/Ti [...] D LEVEL ONCE IN A LIFETIME-USE SMARTSET# 61006 Completed 01/28/2022, 02/21/2015, 12/30/2011 RETIRED - COLONOSCOPY-EVERY [...] this encounter Medical Devices Implanted Type Area Pneumatic Riveter Device Identifier Shelf Expiration Date Model / Serial / Lot Medtronic-05/27/2023 Implanted: (Quantity not on file) Neurostimulator MED[employer] : NEUROLOGIC PAIN 05/26/2049 [id number] / / [id number] Screw Jami Lacie 3 Ti Set - [id number] Implanted:Qt y: 6 on 03/10/2012 at [facility] Bilateral : Spine Lumbar LEVON : SPINE [id number] / / Screw Lacie Pa Ti 6.5x50mm - [id number] Implanted:Qt y: 4 on 03/10/2012 at OR [facility] Bilateral : Spine Lumbar LEVON : SPINE [id number] / / Levon Xia3 7.0 X 40mm Screws Implanted:Qt y: 2 on 03/10/2012 at OR [facility] Bilateral : Spine Lumbar [id number] / / Shaun Lacie 3 Ti 6x70mm - [id number] Implanted:Qt y: 1 on 03/10/2012 at OR [facility] N/A: Spine Lumbar LEVON : SPINE [id number] / / Shaun Lacie 3 Ti Max 6x80mm - [id number] Implanted:Qt y: 1 on 03/10/2012 at OR [facility] N/A: Spine Lumbar LEVON : SPINE [id number] / / 9 X 25 X 4 - 8 Avs Wedge Nose Cage Implanted:Qt y: 1 on 03/10/2012 at OR [facility] N/A: Spine Lumbar [id number] / / Stent Synergy Xd Mr 2.74d54xg - [id number] Implanted:Qt y: 1 on 09/20/2020 at CARDIAC LABS [facility] Bookmate [id number] 04/18/2022 [id number] / / [id number] Stent Synergy Xd Mr 2.40v11sf - [id number] Implanted:Qt y: 1 on 09/20/2020 at CARDIAC LABS [facility] Bookmate [id number] 04/25/2022 [id number] / / [id number] Screw Locking 4.5mm 15mm - [id number] Implanted:Qt y: 1 on 07/11/2022 by Sami Angelo DO at OR [facility] Right: Shoulder [employer] 11/22/2025 108-4515 / / [id number] Bseplate Jasmeet Cmntlss W Scrw - [id number] Implanted:Qt y: 1 on 07/11/2022 by Sami Angelo DO at OR [facility] Right: Shoulder [employer] 03/24/2027 105-0029 / / [id number] Glenosphere Rev Thee W Scrw - [id number] Implanted:Qt y: 1 on 07/11/2022 by Sami Angelo DO at OR [facility] Right: Shoulder [employer] 04/24/2027 105-3610 / / [id number] Screw Locking 4.5mm 15mm - [id number] Implanted:Qt y: 1 on 07/11/2022 by Sami Angelo DO at OR [facility] Right: Shoulder [employer] 03/24/2027 108-4515 / / [id number] Screw Locking 4.5mm 20mm - [id number] Implanted:Qt y: 1 on 07/11/2022 by Sami Angelo DO at OR [facility] Right: Shoulder [employer] 03/24/2027 108-4520 / / [id number] Humelock Ii Stem Ta6v Size 12 Cementless Implanted:Qt y: 1 on 07/11/2022 by Sami Angelo DO at OR [facility] Right: Shoulder [employer] 10/22/2026 [id number] / / [id number] Cortical Screw Ta6v, 5mm, L. 24mm Implanted:Qt y: 1 on 07/11/2022 by Sami Angelo DO at OR [facility] Right: Shoulder [employer] 09/22/2023 107-4524 / / [id number] Humeral Cup 135/145 Degree, Standard, 36/+6 Implanted:Qt y: 1 on 07/11/2022 by Sami Angelo DO at OR [facility] Right: Shoulder 02/21/2025 [id number] / / [id number] Screw Locking 4.5mm 20mm - [id number] Implanted:Qt y: 1 on 07/11/2022 by Sami Angelo DO at OR [facility] Right: Shoulder [employer] 03/24/2027 108-4520 / / [id number] documented as of this encounter Procedures Procedure Name Priority Date/Time Associated Diagnosis Comments CT CHEST/ABDOMEN/PELVIS WITHOUT IV CONTRAST WITHOUT ORAL CONTRAST Routine 01/02/2024 10:[address] C SPINE WO CONTRAST STAT 10:[address] HEAD/BRAIN WO CONTRAST STAT 01/02/2024 10:11 AM EDT XR SHOULDER, 2 OR MORE VIEWS STAT 01/02/2024 10:08 AM EDT DIFFERENTIAL, AUTOMATED STAT 01/02/2024 9:53 AM EDT COMPREHENSIVE METABOLIC PANEL STAT 01/02/2024 9:53 AM EDT CBC STAT 01/02/2024 9:53 AM EDT CBC STAT 01/02/2024 9:53 AM EDT documented in this encounter Results * CT CHEST/ABDOMEN/PELVIS WO IV CONTRAST WO ORAL CONTRAST (01/02/2024 10:16 AM EDT) Anatomical Region Laterality Modality Body, Chest, Abdomen, Pelvis, Cardio Computed Tomography 01/02/2024 10:1 1 AM EDT Impressions 01/02/2024 11:03 AM EDT IMPRESSION: 1. No evidence of intrathoracic injury. 2. Acute nondisplaced right lateral 8th rib fracture. PROCEDURE INFORMATION: Exam: CT Abdomen And Pelvis Without Contrast Exam date and time: 01/02/2024 10:11 AM Age: 63 years old Clinical indication: Injury or trauma; Fall; Additional info: Tra TECHNIQUE: Imaging protocol: Computed tomography of the abdomen and pelvis without contrast. 3D rendering (Not supervised by radiologist): MIP and/or 3D reconstructed images were created by the technologist. Radiation optimization: All CT scans at this facility use at least one of these dose optimization techniques: automated exposure control; mA and/or kV adjustment per patient size (includes targeted exams where dose is matched to clinical indication); or iterative reconstruction. COMPARISON: CT ABD/PELVIS W IV CONTRAST - WO ORAL CONTRAST 11/21/2023 5:45 PM FINDINGS: Liver: Unremarkable and intact. No cystic or solid lesion is identified on this limited study without intravenous contrast. Gallbladder and biliary ducts: There has been prior cholecystectomy. There is no intra or extrahepatic biliary ductal dilatation. Pancreas: Unremarkable. The main pancreatic duct is not dilated. Spleen: Unremarkable and intact. No splenomegaly. Adrenal glands: Unremarkable. Kidneys and ureters: Unremarkable. No hydronephrosis or renal calculi. Stomach and bowel: No abnormal bowel wall thickening or enhancement is seen. Moderate amount of fecal material is seen in the colon, particularly on the right. There is no evidence bowel obstruction. Appendix: No evidence of acute appendicitis. Intraperitoneal space: No free fluid or free intraperitoneal air. Vasculature: Very mild vascular calcifications are seen. No abdominal aortic aneurysm. Lymph nodes: No enlarged lymph nodes are seen. Urinary bladder: Unremarkable as visualized. Reproductive: Unremarkable as visualized. Bones/joints: There is stable mild compression deformity of the superior endplate the L1 vertebral body, with associated Schmorl's node. Surgical hardware is visualized within the L4 through S1 levels, in appropriate alignment, with no evidence of hardware failure. Degenerative changes are seen in the spine. Soft tissues: Unremarkable. IMPRESSION: No evidence of intra-abdominal or pelvic injury. THIS DOCUMENT HAS BEEN ELECTRONICALLY SIGNED BY FRANCISCO JAVIER MANUEL DO Narrative 01/02/2024 11:03 AM EDT PROCEDURE INFORMATION: Exam: CT Chest Without Contrast; Diagnostic Exam date and time: 01/02/2024 10:11 AM Age: 63 years old Clinical indication: Injury or trauma; Fall; Additional info: Tra TECHNIQUE: Imaging protocol: Diagnostic computed tomography of the chest without contrast. 3D rendering (Not supervised by radiologist): MIP and/or 3D reconstructed images were created by the technologist. Radiation optimization: All CT scans at this facility use at least one of these dose optimization techniques: automated exposure control; mA and/or kV adjustment per patient size (includes targeted exams where dose is matched to clinical indication); or iterative reconstruction. COMPARISON: CT CHEST WO CONTRAST 09/12/2023 9:57 AM FINDINGS: Lungs: No interval focal consolidation, mass, or new discrete pulmonary nodule is seen. The 0.5 cm nodule in the left lower lobe on image 68, series 2 is stable. Pleural spaces: No pleural effusion or pneumothorax. Heart: No cardiomegaly. No pericardial effusion. Moderate coronary artery calcifications are seen. Lymph nodes: No enlarged mediastinal or hilar lymph nodes. Vasculature: Mild calcification is seen in the thoracic aorta. No aortic aneurysm. Bones/joints: There is an acute nondisplaced lateral right 8th rib fracture. Degenerative changes are seen in the spine. Neuro lung in the stimulating leads are visualized within the thoracic spine. Right shoulder arthroplasty is partially included. Soft tissues: Unremarkable. Procedure Note Francisco Javier Manuel DO - 01/02/2024 PROCEDURE INFORMATION: Exam: CT Chest Without Contrast; Diagnostic Exam date and time: 01/02/2024 10:11 AM Age: 63 years old Clinical indication: Injury or trauma; Fall; Additional info: Tra TECHNIQUE: Imaging protocol: Diagnostic computed tomography of the chest withoutcontrast. 3D rendering (Not supervised by radiologist): MIP and/or 3D reconstructed images were created by the technologist. Radiation optimization: All CT scans at this facility use at least one ofthese dose optimization techniques: automated exposure control; mA and/or kV adjustment per patient size (includes targeted exams where dose is matchedto clinical indication); or iterative reconstruction. COMPARISON: CT CHEST WO CONTRAST 09/12/2023 9:57 AM FINDINGS: Lungs: No interval focal consolidation, mass, or new discrete pulmonarynodule is seen. The 0.5 cm nodule in the left lower lobe on image 68, series 2is stable. Pleural spaces: No pleural effusion or pneumothorax. Heart: No cardiomegaly. No pericardial effusion. Moderate coronaryartery calcifications are seen. Lymph nodes: No enlarged mediastinal or hilar lymph nodes. Vasculature: Mild calcification is seen in the thoracic aorta. No aortic aneurysm. Bones/joints: There is an acute nondisplaced lateral right 8th ribfracture. Degenerative changes are seen in the spine. Neuro lung in the stimulatingleads are visualized within the thoracic spine. Right shoulder arthroplasty is partially included. Soft tissues: Unremarkable. IMPRESSION IMPRESSION: 1. No evidence of intrathoracic injury. 2. Acute nondisplaced right lateral 8th rib fracture. PROCEDURE INFORMATION: Exam: CT Abdomen And Pelvis Without Contrast Exam date and time: 01/02/2024 10:11 AM Age: 63 years old Clinical indication: Injury or trauma; Fall; Additional info: Tra TECHNIQUE: Imaging protocol: Computed tomography of the abdomen and pelvis without contrast. 3D rendering (Not supervised by radiologist): MIP and/or 3D reconstructed images were created by the technologist. Radiation optimization: All CT scans at this facility use at least one ofthese dose optimization techniques: automated exposure control; mA and/or kV adjustment per patient size (includes targeted exams where dose is matchedto clinical indication); or iterative reconstruction. COMPARISON: CT ABD/PELVIS W IV CONTRAST - WO ORAL CONTRAST 11/21/2023 5:45 PM FINDINGS: Liver: Unremarkable and intact. No cystic or solid lesion is identified onthis limited study without intravenous contrast. Gallbladder and biliary ducts: There has been prior cholecystectomy.There is no intra or extrahepatic biliary ductal dilatation. Pancreas: Unremarkable. The main pancreatic duct is not dilated. Spleen: Unremarkable and intact. No splenomegaly. Adrenal glands: Unremarkable. Kidneys and ureters: Unremarkable. No hydronephrosis or renal calculi. Stomach and bowel: No abnormal bowel wall thickening or enhancement isseen. Moderate amount of fecal material is seen in the colon, particularly onthe right. There is no evidence bowel obstruction. Appendix: No evidence of acute appendicitis. Intraperitoneal space: No free fluid or free intraperitoneal air. Vasculature: Very mild vascular calcifications are seen. No abdominalaortic aneurysm. Lymph nodes: No enlarged lymph nodes are seen. Urinary bladder: Unremarkable as visualized. Reproductive: Unremarkable as visualized. Bones/joints: There is stable mild compression deformity of the superior endplate the L1 vertebral body, with associated Schmorl's node. Surgical hardware is visualized within the L4 through S1 levels, in appropriate alignment, with no evidence of hardware failure. Degenerative changes areseen in the spine. Soft tissues: Unremarkable. IMPRESSION: No evidence of intra-abdominal or pelvic injury. THIS DOCUMENT HAS BEEN ELECTRONICALLY SIGNED BY FRANCISCO JAVIER MANUEL DO Mario Mckeon MD RAD CT * CT C SPINE WO CONTRAST (01/02/2024 10:13 AM EDT) Anatomical Region Laterality Modality Cspine, Spine, Neck, Vertebra Co mputed Tomography 01/02/2024 10:0 8 AM EDT Impressions 01/02/2024 10:42 AM EDT IMPRESSION: No acute cervical spine pathology. THIS DOCUMENT HAS BEEN ELECTRONICALLY SIGNED BY DAVONTE RICHARDSON MD Narrative 01/02/2024 10:42 AM EDT PROCEDURE INFORMATION: Exam: CT Cervical Spine Without Contrast Exam date and time: 01/02/2024 10:08 AM Age: 63 years old Clinical indication: Injury or trauma; Fall; Additional info: Tr TECHNIQUE: Imaging protocol: Computed tomography of the cervical spine without contrast. Total images: 1646 Radiation optimization: All CT scans at this facility use at least one of these dose optimization techniques: automated exposure control; mA and/or kV adjustment per patient size (includes targeted exams where dose is matched to clinical indication); or iterative reconstruction. COMPARISON: MRI C SPINE WO CONTRAST 02/12/2022 12:02 PM FINDINGS: Bones: Mild scattered degenerative changes of the spine. Vertebral body heights are maintained. No evidence of spondylolisthesis. Prevertebral and retropharyngeal spaces: No prevertebral soft tissue swelling. Lungs: Lung apices are normal. Soft tissues: Unremarkable. Other findings: Posterior elements are unremarkable. Procedure Note Davonte Richardson III, MD - 01/02/2024 PROCEDURE INFORMATION: Exam: CT Cervical Spine Without Contrast Exam date and time: 01/02/2024 10:08 AM Age: 63 years old Clinical indication: Injury or trauma; Fall; Additional info: Tr TECHNIQUE: Imaging protocol: Computed tomography of the cervical spine withoutcontrast. Total images: 1646 Radiation optimization: All CT scans at this facility use at least one ofthese dose optimization techniques: automated exposure control; mA and/or kV adjustment per patient size (includes targeted exams where dose is matchedto clinical indication); or iterative reconstruction. COMPARISON: MRI C SPINE WO CONTRAST 02/12/2022 12:02 PM FINDINGS: Bones: Mild scattered degenerative changes of the spine. Vertebral bodyheights are maintained. No evidence of spondylolisthesis. Prevertebral and retropharyngeal spaces: No prevertebral soft tissueswelling. Lungs: Lung apices are normal. Soft tissues: Unremarkable. Other findings: Posterior elements are unremarkable. IMPRESSION IMPRESSION: No acute cervical spine pathology. THIS DOCUMENT HAS BEEN ELECTRONICALLY SIGNED BY DAVONTE RICHARDSON MD Mario Mckeon MD RAD CT * CT HEAD/BRAIN WO CONTRAST (01/02/2024 10:11 AM EDT) Anatomical Region Laterality Modality Head Computed Tomogra phy 01/02/2024 10:0 6 AM EDT Impressions 01/02/2024 10:22 AM EDT IMPRESSION: No acute intracranial pathology detected. THIS DOCUMENT HAS BEEN ELECTRONICALLY SIGNED BY DAVONTE RICHARDSON MD Narrative 01/02/2024 10:22 AM EDT PROCEDURE INFORMATION: Exam: CT Head Without Contrast Exam date and time: 01/02/2024 10:06 AM Age: 63 years old Clinical indication: Injury or trauma; Fall; Blunt trauma (contusions or hematomas); Additional info: Tr TECHNIQUE: Imaging protocol: Computed tomography of the head without contrast. Total images: 587 Radiation optimization: All CT scans at this facility use at least one of these dose optimization techniques: automated exposure control; mA and/or kV adjustment per patient size (includes targeted exams where dose is matched to clinical indication); or iterative reconstruction. COMPARISON: CTA HEAD/CTA NECK 12/24/2023 6:26 PM FINDINGS: Brain: Chronic white matter ischemic changes are present. Cerebral ventricles: No ventriculomegaly. Paranasal sinuses: Visualized sinuses are unremarkable. No fluid levels. Mastoid air cells: Visualized mastoid air cells are well aerated. Bones: Unremarkable. No acute fracture. Soft tissues: Unremarkable. Procedure Note Davonte Richardson III, MD - 01/02/2024 PROCEDURE INFORMATION: Exam: CT Head Without Contrast Exam date and time: 01/02/2024 10:06 AM Age: 63 years old Clinical indication: Injury or trauma; Fall; Blunt trauma (contusions or hematomas); Additional info: Tr TECHNIQUE: Imaging protocol: Computed tomography of the head without contrast. Total images: 587 Radiation optimization: All CT scans at this facility use at least one ofthese dose optimization techniques: automated exposure control; mA and/or kV adjustment per patient size (includes targeted exams where dose is matchedto clinical indication); or iterative reconstruction. COMPARISON: CTA HEAD/CTA NECK 12/24/2023 6:26 PM FINDINGS: Brain: Chronic white matter ischemic changes are present. Cerebral ventricles: No ventriculomegaly. Paranasal sinuses: Visualized sinuses are unremarkable. No fluid levels. Mastoid air cells: Visualized mastoid air cells are well aerated. Bones: Unremarkable. No acute fracture. Soft tissues: Unremarkable. IMPRESSION IMPRESSION: No acute intracranial pathology detected. THIS DOCUMENT HAS BEEN ELECTRONICALLY SIGNED BY DAVONTE RICHARDSON MD Mario Mckeon MD RAD CT * XR SHOULDER, 2 OR MORE VIEWS (01/02/2024 10:08 AM EDT) Anatomical Region Laterality Modality Upper Extremity, Shoulder Comput ed Radiography 01/02/2024 10:0 3 AM EDT Impressions 01/02/2024 11:04 AM EDT IMPRESSION: 1. Acute nondisplaced right lateral 8th rib fracture. 2. Right shoulder arthroplasty which is in stable alignment, with no evidence of hardware failure. THIS DOCUMENT HAS BEEN ELECTRONICALLY SIGNED BY DO Marci VALLES 01/02/2024 11:04 AM EDT PROCEDURE INFORMATION: Exam: XR Right Shoulder Exam date and time: 01/02/2024 10:03 AM Age: 63 years old Clinical indication: Injury or trauma; Fall; Blunt trauma (contusions or hematomas); Right; Prior surgery; Surgery date: 6+ months; Patient HX: Total shoulder years ago, fell 5 days ago, ongoing pain in shoulder and RT ribs. TECHNIQUE: Imaging protocol: Radiologic exam of the right shoulder. Views: 2 or more views. COMPARISON: DX XR SHOULDER, 2 OR MORE VIEWS 08/11/2023 10:40 AM FINDINGS: Bones/joints: There is an acute fracture of the right lateral 8th rib. Right shoulder arthroplasty is visualized, in near anatomic alignment, with no evidence of hardware failure or loosening. No dislocation. Mild degenerative changes are seen within the right acromioclavicular joint. Soft tissues: No significant soft tissue swelling. Procedure Note Francisco Javier Manuel DO - 01/02/2024 PROCEDURE INFORMATION: Exam: XR Right Shoulder Exam date and time: 01/02/2024 10:03 AM Age: 63 years old Clinical indication: Injury or trauma; Fall; Blunt trauma (contusions or hematomas); Right; Prior surgery; Surgery date: 6+ months; Patient HX:Total shoulder years ago, fell 5 days ago, ongoing pain in shoulder and RT ribs. TECHNIQUE: Imaging protocol: Radiologic exam of the right shoulder. Views: 2 or more views. COMPARISON: DX XR SHOULDER, 2 OR MORE VIEWS 08/11/2023 10:40 AM FINDINGS: Bones/joints: There is an acute fracture of the right lateral 8th rib.Right shoulder arthroplasty is visualized, in near anatomic alignment, with no evidence of hardware failure or loosening. No dislocation. Milddegenerative changes are seen within the right acromioclavicular joint. Soft tissues: No significant soft tissue swelling. IMPRESSION IMPRESSION: 1. Acute nondisplaced right lateral 8th rib fracture. 2. Right shoulder arthroplasty which is in stable alignment, with noevidence of hardware failure. THIS DOCUMENT HAS BEEN ELECTRONICALLY SIGNED BY FRANCISCO JAVIER MANUEL DO Mario Mckeon MD RADIOLOGY ([facility]) * DIFFERENTIAL, AUTOMATED (01/02/2024 9:53 AM EDT) WBC 5.50 4.00 - 10.80 K/uL 01/02/2024 10:11 AM EDT [facility] Neutrophils % 50.8 40.0 - 75.0 % 01/02/2024 10:11 AM EDT [facility] Lymphocytes % 37.6 18.0 - 42.0 % 01/02/2024 10:11 AM EDT [facility] Monocytes % 8.9 1.0 - 11.0 % 01/02/2024 10:11 AM EDT [facility] Eosinophils % 2.5 0.0 - 6.0 % 01/02/2024 10:11 AM EDT [facility] Basophils % 0.2 0.0 - 2.0 % 01/02/2024 10:11 AM EDT [facility] Absolute Neutrophils 2.79 1.80 - 7.70 K/uL 01/02/2024 10:11 AM EDT [facility] Absolute Lymphocytes 2.07 1.00 - 4.80 K/ul 01/02/2024 10:11 AM EDT [facility] Absolute Monocytes 0.49 0.00 - 1.10 K/uL 01/02/2024 10:11 AM EDT [facility] Absolute Eosinophils 0.14 0.00 - 0.70 K/uL 01/02/2024 10:11 AM EDT [facility] Absolute Basophils 0.01 0.00 - 0.20 K/uL 01/02/2024 10:11 AM EDT [facility] Blood Venous blood specimen / Unknown Venipuncture / Unknown 01/02/2024 9:53 AM EDT 01/02/2024 10:09 AM EDT Mario Mckeon MD LAB BLOOD ORDERABLES [facility] [id number] [place] [address] * (ABNORMAL) CBC (01/02/2024 9:53 AM EDT) WBC 5.50 4.00 - 10.80 K/uL 01/02/2024 10:11 AM EDT [facility] RBC 3.94 3.85 - 5.15 M/uL 01/02/2024 10:11 AM EDT [facility] HGB 11.1(L) 12.0 - 15.3 g/dL 01/02/2024 10:11 AM EDT [facility] HCT 34.7(L) 36.0 - 45.2 % 01/02/2024 10:11 AM EDT [facility] MCV 88.1 81.5 - 97.5 fL 01/02/2024 10:11 AM EDT [facility] MCH 28.2 27.0 - 34.0 pg 01/02/2024 10:11 AM EDT [facility] MCHC 32.0 32.0 - 36.0 g/dL 01/02/2024 10:11 AM EDT [facility] RDW 15.8 11.5 - 15.5 % 01/02/2024 10:11 AM EDT [facility] PLT 156 140 - 400 K/uL 01/02/2024 10:11 AM EDT [facility] MPV 9.4 6.6 - 11.1 fL 01/02/2024 10:11 AM EDT [facility] Blood Venous blood specimen / Unknown Venipuncture / Unknown 01/02/2024 9:53 AM EDT 01/02/2024 10:09 AM EDT Mario Mckeon MD LAB BLOOD ORDERABLES LABORATORY [address] [address] * (ABNORMAL) COMPREHENSIVE METABOLIC PANEL (01/02/2024 9:53 AM EDT) BUN 13 6 - 20 mg/dL 01/02/2024 10:30 AM EDT [facility] CREATININE 0.9 0.5 - 1.0 mg/dL 01/02/2024 10:30 AM EDT [facility] EGFR 74 >=60 mL/min 01/02/2024 10:30 AM EDT [facility] Comment:eGFR is calculated b ased on the CKD-EPI 2020 equation. SODIUM 130(L) 135 - 146 mmol/L 01/02/2024 10:30 AM EDT [facility] POTASSIUM 4.3 3.5 - 5.1 mmol/L 01/02/2024 10:30 AM EDT [facility] CHLORIDE 96(L) 98 - 107 mmol/L 01/02/2024 10:30 AM EDT [facility] CO2 24 22 - 32 mmol/L 01/02/2024 10:30 AM EDT [facility] ANION GAP 10 7 - 15 mmol/L 01/02/2024 10:30 AM EDT [facility] GLUCOSE 89 70 - 120 mg/dL 01/02/2024 10:30 AM EDT [facility] Albumin 4.2 3.8 - 5.0 g/dL 01/02/2024 10:30 AM EDT [facility] AST 43(H) 10 - 35 U/L 01/02/2024 10:30 AM EDT [facility] Alkaline Phosphatase 62 35 - 130 U/L 01/02/2024 10:30 AM EDT [facility] Bilirubin, Total 0.2 <=1.2 mg/dL 01/02/2024 10:30 AM EDT [facility] CALCIUM 8.9 8.4 - 10.2 mg/dL 01/02/2024 10:30 AM EDT [facility] Protein 6.8 6.0 - 8.3 g/dL 01/02/2024 10:30 AM EDT [facility] ALT 65(H) 10 - 35 U/L 01/02/2024 10:30 AM EDT [facility] Blood Venous blood specimen / Unknown Venipuncture / Unknown 01/02/2024 9:53 AM EDT 01/02/2024 10:09 AM EDT Mario Mckeon MD LAB BLOOD ORDERABLES Performing Organization Address City/State/[facility] Co de Phone Number [facility] [id number] [place] [address] documented in this encounter Visit Diagnoses Diagnosis Closed fracture of one rib, unspecified laterality, initial encounter- Primary documented in this encounter Administered Medications Inactive Administered Medications - up to 3 most recent administrations Medication Order MAR Action Action Date Dose Rate Site morphine sulfate inj 2 mg 2 mg, Intravenous, ONCE, On Fri01/02/24 at 1030, For 1 dose Given 01/02/2024 9:58 AM EDT 2 mg ondansetron (Zofran) inj 4 mg 4 mg, IV Push, ONCE, On Fri01/02/24 at 1030, For 1 dose Given 01/02/2024 9:58 AM EDT 4 mg documented in this encounter Active and Recently Administered Medications Times are shown in EDT. Scheduled Medication Order 12/31/2023 01/01/2024 01/02/2024 morphine sulfate inj 2 mg (COMPLETED) 2 mg, Intravenous, ONCE, On Fri01/02/24 at 1030, For 1 dose 0958 (Given - Provid er: Antwan Quinones RN) ondansetron (Zofran) inj 4 mg (COMPLETED) 4 mg, IV Push, ONCE, On Fri01/02/24 at 1030, For 1 dose 0958 (Given - Provid er: Antwan Quinones RN) documented in this encounter Advance Directives * [...] Agents on File Name Relationship Healthcare Agent [facility] p Communication Donny Pace Spouse Health Care Agent Care Teams Gold [employer]er Relationship Specialty Start Date End Date Keagan Sanchez MD [address] [place] [address] PCP - General Family Medicine 10/07/23 documented as of this encounter
--- OUTSIDE RECORDS SUMMARY | 2024-03-06 12:28 | External Medical Summary | Summary of Care ---
Author Name Unknown Organization [facility] Address [address] [place] [address] Phone [phone] Care Team Providers Care Director Of Sustainable Design Name Role Phone Keagan Sanchez MD Primary Care Provider [phone] Reason for Visit * Reason Onset Date Comments Medication Refill Status Check 01/02/2024 Encounter Details Date Type Department Care Team ([facility] Contact Info) Description 12/24/[address] [address] Keagan Sanchez MD [address] [place] [address] [phone] Allergies Active Allergy Reactions Criticality Noted Date Comments Adhesive Tape 03/31/2023 Other Reaction(s): Tape- redness, paper tape/coban "ok", [id number] TAPE OK OR COBAN Clarithromycin High 03/31/2023 [...] Oral Tablet (Zetia)Indication s: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 Do all this for 5 days. 10 Capsule 12/24/2023 4 documented as of this encounter (statuses as [...] hypothyroidism 04/12/2021 Coronary artery disease invo lving knik coronary artery of knik heart without angina pectoris 09/27/2020 Last Assessment & Plan: Has 3 stents (2 in LAD one in diagonal), placed at [facility] [place] [address] Womack Followed by [facility] cardiology, Angela Littlejohn, [...] P R, 30MCG/0.3ML, IM, 12YRS AND ABOVE ([facility] 12/11/2023 COVID-19, mRNA, LNP-s, PF, B ooster, [...] encounter Miscellaneous Notes * Telephone Encounter - Brian Bucio LPN - 01/03/2024 8:54 AM EDTPending Prescriptions: Disp Refills Metoclopramide HCl 10 MG Oral Tablet (Regl*270 Ta*0 Sig: Take 1Tablet by mouth 3 times a day. Baclofen 20 MG Oral Tablet 360 Ta*0 Sig: Take 1 Tablet by mouth 4 times a day. * Addendum Note - Brian Bucio LPN - 01/03/2024 8:54 AM EDTAddended by: BRIAN BUCIO on: 01/03/2024 08:54 AM Modules accepted: Orders * Telephone Encounter - Alber Rogers it infrastructure consultant - 01/02/2024 1:10 PM EDT Patient calling to check on status of refill request. Pt will be out of medication after tomorrow. Thank you, Alber Rogers Data Analysis Manager [facility]) 01/02/2024,1:10 PM * Addendum Note - Earnestine Mckeon CPhT - 12/29/2023 8:45 AM EDTAddended by: EARNESTINE MCKEON on: 12/29/2023 08:45 AM Modules accepted: Orders * Telephone Encounter - Earnestine Mckeon CPhT - 12/29/2023 8:44 AM EDT Did you pend patient's preferred pharmacy and medication before forwarding?yes Pharmacy: [facility] Pending Prescriptions: Disp Refills Metoclopramide HCl 10 MG Oral Tablet (Reg*270 Ta*0 Sig: Take 1 Tablet by mouth 3 times a day. Last Visit: 12/22/2023 (in office), 10/31/2023 (telemedicine) Next Visit: 06/21/2024 If no future appointments scheduled, and last appointment is greater than a year ago, please schedule patient for a follow-up appointment Last date the medication was ordered: 09/26/23 Is this request for a controlled substance?No Urine Drug Screen: Results for orders placed or performed in visit on 12/22/23 PAIN MANAGEMENT DRUG PANEL, URINE W/ INTERPRETATION Result Value Compliance Interpretation Based on the medication information provided: The presence of tramadol and o-desmethyltramadol is CONSISTENT with tramadol use. Amphetamines Screen, U Negative Benzodiazepines Screen, U Negative Cannabinoids Screen, U Negative Cocaine Metabolite Screen, U Negative Fentanyl Screen, U Negative Hydrocodone Screen, U Negative Methadone Metabolite Screen, U Negative Morphine/Codeine Screen, U Negative Oxycodone Screen, U Negative Valid Interpretation Normal Creatinine, U 33 Narrative Cutoff Concentrations: Drug Level Amphetamines 500 ng/mL Benzodiazepines 100 ng/mL Cannabinoids 50 ng/mL Cocaine Metabolite 150 ng/mL Fentanyl 1 ng/mL Hydrocodone / Hydromorphone 300 ng/mL Methadone Metabolite 100 ng/mL Morphine / Codeine 300 ng/mL Oxycodone / Oxymorphone 100 ng/mL Screening results are presumptive and can only be used for medical purposes. Confirmatory testing is available upon request. *Note: Due to a large number of results and/or encounters for the requested time period, some results have not been displayed. A complete set of results can be found in Results Review. Patient Phone Numbers Labs: Lab Results Component Value Date/Time CREAT 0.9 12/26/2023 10:01 AM CREAT 1.0 02/26/2020 09:17 AM POTASSIUM 4.8 12/26/2023 10:01 AM POTASSIUM 3.9 02/26/2020 09:17 AM TSH 5.00 (H) 12/24/2023 06:19 PM TSH 2.74 10/20/2019 08:59 AM LDL 40 08/24/2023 12:22 AM LDL 120 10/20/2019 08:59 AM LDL NOT APPLICABLE 10/20/2019 08:59 AM ALT 76 (H) 12/26/2023 10:01 AM ALT 32 10/20/2019 08:59 AM HGBA1C 6.0 (H) 07/17/2023 09:07 AM HGBA1C 5.2 06/23/2014 09:27 AM * Telephone Encounter - Earnestine Mckeon CPhT - 12/29/2023 8:43 AM EDTNo prescriptions requested or ordered in this encounter * Telephone Encounter - Earnestine Mckeon CPhT - 12/29/2023 8:43 AM EDTNo prescriptions requested or ordered in this encounter * Telephone Encounter - Pati Roberts, it infrastructure consultant - 12/25/2023 12:03 PM EDT Did you pend patient's preferred pharmacy and medication before forwarding?yes Pharmacy: [facility] Pending Prescriptions: Disp Refills Metoclopramide HCl 10 MG Oral Tablet (Reg*270 Ta*0 Sig: TAKE ONE TABLET BY MOUTH THREE TIMES A DAY THIRTY MINUTES BEFORE MEALS Last Visit: 12/22/2023 (in office), 10/31/2023 (telemedicine) Next Visit: 06/21/2024 If no future appointments scheduled, and last appointment is greater than a year ago, please schedule patient for a follow-up appointment Last date the medication was ordered: 09/26/23 Is this request for a controlled substance?No Urine Drug Screen: Results for orders placed or performed in visit on 12/22/23 PAIN MANAGEMENT DRUG PANEL, URINE W/ INTERPRETATION Result Value Compliance Interpretation Amphetamines Screen, U Negative Benzodiazepines Screen, U Negative Cannabinoids Screen, U Negative Cocaine Metabolite Screen, U Negative Fentanyl Screen, U Negative Hydrocodone Screen, U Negative Methadone Metabolite Screen, U Negative Morphine/Codeine Screen, U Negative Oxycodone Screen, U Negative Valid Interpretation Normal Creatinine, U 33 Narrative Cutoff Concentrations: Drug Level Amphetamines 500 ng/mL Benzodiazepines 100 ng/mL Cannabinoids 50 ng/mL Cocaine Metabolite 150 ng/mL Fentanyl 1 ng/mL Hydrocodone / Hydromorphone 300 ng/mL Methadone Metabolite 100 ng/mL Morphine / Codeine 300 ng/mL Oxycodone / Oxymorphone 100 ng/mL Screening results are presumptive and can only be used for medical purposes. Confirmatory testing is available upon request. *Note: Due to a large number of results and/or encounters for the requested time period, some results have not been displayed. A complete set of results can be found in Results Review. Patient Phone Numbers Labs: Lab Results Component Value Date/Time CREAT 1.0 12/24/2023 06:19 PM CREAT 1.0 02/26/2020 09:17 AM POTASSIUM 3.4 (L) 12/24/2023 06:19 PM POTASSIUM 3.9 02/26/2020 09:17 AM TSH 5.00 (H) 12/24/2023 06:19 PM TSH 2.74 10/20/2019 08:59 AM LDL 40 08/24/2023 12:22 AM LDL 120 10/20/2019 08:59 AM LDL NOT APPLICABLE 10/20/2019 08:59 AM ALT 83 (H) 12/24/2023 06:19 PM ALT 32 10/20/2019 08:59 AM HGBA1C 6.0 (H) 07/17/2023 09:07 AM HGBA1C 5.2 06/23/2014 09:27 AM * Telephone Encounter - HussainAlma - 12/24/2023 11:05 PM EDTPending Prescriptions: Disp Refills Metoclopramide HCl 10 MG Oral Tablet (Regl*270 Ta*0 Sig: TAKE ONE TABLET BY MOUTH THREE TIMES A DAY THIRTY MINUTES BEFORE MEALS documented in this encounter Plan of Treatment Upcoming Encounters Date Type Department Care Team (Late st Contact Info) Description 01/03/2024 12:00 PM EDT Scheduled Telephone [facility], [facility] [address] [place] [address] [facility], Nurse [facility] [address] [place] [address] 01/08/2024 1:00 PM EDT Office Visit Gastroenterology, [facility] [address] [facility] [place] [address] Rachael Tavarez CRNP [address] [facility] [place] [address] 02/02/2024 12:30 PM EST Home Visit [facility], [facility] [address] [place] [address] Nika Guevara RN [address] [place] [address] 02/11/2024 10:30 AM EST Telemedicine [facility], [facility] [address] [place] [address] Oriana Isaacs PA-C [address] [place] [address] Edith Garcia, Community Health Electrical Unit Rebuilder [address] [place] [address] 06/07/2024 11:00 AM EDT Office Visit Cardiology [facility] 68 [facility] [address] [place] [address] Angela Littlejohn CRNP [address] [place] [address] 06/21/2024 10:40 AM EDT Office Visit Family Practice [facility] [address] [place] [address] Keagan Sanchez MD 68 [place] [address] 08/09/2024 10:00 AM EDT [facility] [address] [place] [address] Sami Angelo DO 16 [place] [address] 10/07/2024 2:40 PM EDT Office Visit Dermatology [facility] [address] [place] [address] Alden Ann PA-C 68 [place] [address] 11/25/2024 11:00 AM EDT Office Visit Neurology [facility] [address] [facility] [place] [address] Kelly Waddell PA-C [address] [place] [address] Scheduled Procedures Name Priority Associated Diagnoses Date/Ti [...] D LEVEL ONCE IN A LIFETIME-USE SMARTSET# [id number] Completed 01/28/2022, 02/21/2015, 12/30/2011 RETIRED - COLONOSCOPY-EVERY [...] this encounter Medical Devices Implanted Type Area Microbiology Technician Device Identifier Shelf Expiration Date Model / Serial / Lot Medtronic-05/27/2023 Implanted: (Quantity not on file) Neurostimulator MEDTRONIC : NEUROLOGIC PAIN 05/26/2049 [id number] / / [id number] Screw Jami Lacie 3 Ti Set - [id number] Implanted:Qt y: 6 on 03/10/2012 at [place] [facility] Bilateral : Spine Lumbar LEVON : SPINE [id number] / / Screw Lacie Pa Ti 6.5x50mm - [id number] Implanted:Qt y: 4 on 03/10/2012 at [facility] Bilateral : Spine Lumbar LEVON : SPINE [id number] / / [place] Xia3 7.0 X 40mm Screws Implanted:Qt y: 2 on 03/10/2012 at OR [facility] Bilateral : Spine Lumbar [id number] / / Shaun Lacie 3 Ti 6x70mm - [id number] Implanted:Qt y: 1 on 03/10/2012 at OR [facility] N/A: Spine Lumbar LEVON : SPINE [id number] / / Shaun Lacie 3 Ti Max 6x80mm - [id number] Implanted:Qt y: 1 on 03/10/2012 at OR [facility] N/A: Spine Lumbar LEVON : SPINE [id number] / / 9 X 25 X 4 - 8 Avs Wedge Nose Cage Implanted:Qt y: 1 on 03/10/2012 at [facility] N/A: Spine Lumbar [id number] / / Stent Synergy Xd Mr 2.11m13nr - [id number] Implanted:Qt y: 1 on 09/20/2020 at [facility] MAINtag [id number] 04/18/2022 [id number] / / [id number] Stent Synergy Xd Mr 2.06f28fg - [id number] Implanted:Qt y: 1 on 09/20/2020 at [facility] MAINtag [id number] 04/25/2022 [id number] 2220 / / [id number] Screw Locking 4.5mm 15mm - [id number] Implanted:Qt y: 1 on 07/11/2022 by Sami Angelo DO at OR [facility] Right: Shoulder [employer] 11/22/2025 108-4515 / / [id number] Bseplate Jasmeet Cmntlss W Scrw - [id number] Implanted:Qt y: 1 on 07/11/2022 by Sami Angelo DO at OR [facility] Right: Shoulder [employer] 03/24/2027 105-0029 / / [id number] Glenosphere Rev Thee W Scrw - [id number] Implanted:Qt y: 1 on 07/11/2022 by Sami Angelo DO at [place] [facility] Right: Shoulder [employer] 04/24/2027 105-3610 / / [id number] Screw Locking 4.5mm 15mm - [id number] Implanted:Qt y: 1 on 07/11/2022 by Sami Angelo DO at [place] [facility] Right: Shoulder [employer] 03/24/2027 108-4515 / / [id number] Screw Locking 4.5mm 20mm - [id number] Implanted:Qt y: 1 on 07/11/2022 by Sami Angelo DO at [place] [facility] Right: Shoulder [employer] 03/24/2027 108-4520 / / [id number] Humelock Ii Stem Ta6v Size 12 Cementless Implanted:Qt y: 1 on 07/11/2022 by Sami Angelo DO at [place] [facility] Right: Shoulder [employer] 10/22/2026 311-0212 / / [id number] Cortical Screw Ta6v, 5mm, L. 24mm Implanted:Qt y: 1 on 07/11/2022 by Sami Angelo DO at [place] [facility] Right: Shoulder [employer] 09/22/2023 107-4524 / / [id number] Humeral Cup 135/145 Degree, Standard, 36/+6 Implanted:Qt y: 1 on 07/11/2022 by Sami Angelo DO at OR [facility] Right: Shoulder 02/21/2025 313-0706 / / [id number] Screw Locking 4.5mm 20mm - [id number] Implanted:Qt y: 1 on 07/11/2022 by Sami Angelo DO at [place] [facility] Right: Shoulder FX [...] Agents on File Name Relationship Healthcare Agent [facility] p Communication Donny Pace Spouse Health Care Agent [phone] (Mobile) Care Teams Director Of Sustainable Design Relationship Specialty Start Date End Date Keagan Sanchez MD [address] [place] [phone] PCP - General Family Medicine 10/07/23 documented as of this encounter
--- OUTSIDE RECORDS SUMMARY | 2024-03-06 12:28 | External Medical Summary | Summary of Care ---
Author Name Unknown Organization [facility] Address [address] [place] [address] Phone [phone] Care Team Providers Care Supervisor Coke Handling Name Role Phone Keagan Sanchez MD Primary Care Provider [phone] Reason for Visit * Reason Onset Date Comments Medication Refill Status Check 01/02/2024 Encounter Details Date Type Department Care Team ([facility] Contact Info) Description 12/24/[address] [address] Keagan Sanchez MD [address] [place] [address] [phone] Allergies Active Allergy Reactions Criticality Noted Date Comments Adhesive Tape 03/31/2023 Other Reaction(s): Tape- redness, paper tape/coban "ok", [id number] TAPE OK OR COBAN Clarithromycin High 03/31/2023 [...] Oral Tablet (Zetia)Indication s:Coronary artery disease involving [place] coronary artery of [place] heart with unstable angina pectoris (HCC) TAKE [...] hypothyroidism 04/12/2021 Coronary artery disease invo lving [place] coronary artery of [place] heart without angina pectoris 09/27/2020 Last Assessment & Plan: Has 3 stents (2 in LAD one in diagonal), placed at [facility] [place] [address] Womack Followed by [facility] cardiology, Angela Littlejohn, next appt May 2024 [...] P R, 30MCG/0.3ML, IM, 12YRS AND ABOVE ([facility] 12/11/2023 COVID-19, mRNA, LNP-s, PF, B ooster, [...] encounter Miscellaneous Notes * Telephone Encounter - Alber Rogers, coroner/medical examiner - 01/02/2024 1:10 PM EDT Patient calling to check on status of refill request. Pt will be out of medication after tomorrow. Thank you, Alber Rogers Postmaster [facility] 01/02/2024,1:10 PM * Addendum Note - Earnestine Mckeon CPhT - 12/29/2023 8:45 AM EDTAddended by: EARNESTINE MCKEON on: 12/29/2023 08:45 AM Modules accepted: Orders * Telephone Encounter - Earnestine Mckeon CPhT - 12/29/2023 8:44 AM EDT Did you pend patient's preferred pharmacy and medication before forwarding?yes Pharmacy: [facility] Pending Prescriptions: Disp Refills [...] encounter * Telephone Encounter - Pati Roberts, coroner/medical examiner - 12/25/2023 12:03 PM EDT Did you pend patient's preferred pharmacy and medication before forwarding?yes Pharmacy: [facility] Pending Prescriptions: Disp Refills [...] 06/23/2014 09:27 AM * Telephone Encounter - Alma Nixon - 12/24/2023 11:05 PM EDTPending Prescriptions: Disp Refills Metoclopramide HCl 10 MG Oral Tablet (Regl*270 Ta*0 Sig: TAKE ONE TABLET BY MOUTH THREE TIMES A DAY THIRTY MINUTES BEFORE MEALS documented in this encounter Plan of Treatment Upcoming Encounters Date Type Department Care Team (Late st Contact Info) Description 01/03/2024 12:00 PM EDT Scheduled Telephone [facility], [facility] [address] [place] [address] [facility], Nurse [facility] [address] [phone] 01/08/2024 1:00 PM EDT Office Visit Gastroenterology, [facility] [address] [facility] [place] [address] Rachael Tavarez CRNP [address] [place] [address] 02/02/2024 12:30 PM EST Home Visit [facility], [facility] [address] [place] [address] Nika Guevara RN [address] [place] [address] 02/11/2024 10:30 AM EST Telemedicine [facility], [facility] [address] [place] [address] Oriana Isaacs PA-C [address] [place] [address] Edith Garcia, Community Health Engineering Recruiter [address] [place] [address] 06/07/2024 11:00 AM EDT Office Visit Cardiology [facility] [address] [address] Angela Littlejohn CRNP [address] [place] [address] 06/21/2024 10:40 AM EDT Office Visit Family Practice [facility] [address] [place] [address] Keagan Sanchez MD [address] [place] [address] 08/09/2024 10:00 AM EDT Office Visit [place] [place] 16 [place] [address] Sami Angelo DO [address] [place] [address] 10/07/2024 2:40 PM EDT Office Visit Dermatology [facility] [address] [place] [address] Alden Ann PA-C 68 [place] [address] 11/25/2024 11:00 AM EDT Office Visit Neurology [facility] [address] [place] [address] Kelly Waddell PA-C [address] [place] [address] Scheduled Procedures Name Priority Associated Diagnoses Date/Ti [...] D LEVEL ONCE IN A LIFETIME-USE SMARTSET# [id number] Completed 01/28/2022, 02/21/2015, 12/30/2011 RETIRED - COLONOSCOPY-EVERY [...] this encounter Medical Devices Implanted Type Area Asbestos Siding Mechanic Device Identifier Shelf Expiration Date Model / Serial / Lot Medtronic-05/27/2023 Implanted: (Quantity not on file) Neurostimulator MEDTRONIC : NEUROLOGIC PAIN 05/26/2049 [id number] / / [id number] Screw Jami Lacie 3 Ti Set - [id number] Implanted:Qt y: 6 on 03/10/[address] [facility] Bilateral : Spine Lumbar LEVON : SPINE [id number] / / Screw Lacie Pa Ti 6.5x50mm - [id number] Implanted:Qt y: 4 on 03/10/[address] [facility] Bilateral : Spine Lumbar LEVON : SPINE [id number] / / Levon Xia3 7.0 X 40mm Screws Implanted:Qt y: 2 on 03/10/[address] [facility] Bilateral : Spine Lumbar [id number] / / Shaun Lacie 3 Ti 6x70mm - [id number] Implanted:Qt y: 1 on 03/10/[address] [facility] N/A: Spine Lumbar LEVON : SPINE [id number] / / Shaun Lacie 3 Ti Max 6x80mm - [id number] Implanted:Qt y: 1 on 03/10/[address] [facility] N/A: Spine Lumbar LEVON : SPINE [id number] / / 9 X 25 X 4 - 8 Avs Wedge Nose Cage Implanted:Qt y: 1 on 03/10/[address] [facility] N/A: Spine Lumbar [id number] / / Stent Synergy Xd Mr 2.41w02hi - [id number] Implanted:Qt y: 1 on 09/20/[address] [facility] OX FACTORY [id number] 04/18/2022 [id number] 6220 / / [id number] Stent Synergy Xd Mr 2.20f24ws - [id number] Implanted:Qt y: 1 on 09/20/[address] [facility] OX FACTORY [id number] 04/25/2022 [id number] 2220 / / [id number] Screw Locking 4.5mm 15mm - [id number] Implanted:Qt y: 1 on 07/11/2022 by Sami Angelo DO at OR [facility] Right: Shoulder [employer] 11/22/2025 108-4515 / / [id number] Bseplate Jasmeet Cmntlss W Scrw - [id number] Implanted:Qt y: 1 on 07/11/2022 by Sami Angelo DO at OR [facility] Right: Shoulder [employer] 03/24/2027 105-0029 / / [id number] Glenosphere Rev Thee W Scrw - [id number] Implanted:Qt y: 1 on 07/11/2022 by Sami Angelo DO at OR [facility] Right: Shoulder [employer] 04/24/2027 105-3610 / / [id number] Screw Locking 4.5mm 15mm - [id number] Implanted:Qt y: 1 on 07/11/2022 by Sami Angelo DO at OR [facility] Right: Shoulder [employer] 03/24/2027 108-4515 / / [id number] Screw Locking 4.5mm 20mm - [id number] Implanted:Qt y: 1 on 07/11/2022 by Sami Angelo DO at OR [facility] Right: Shoulder [employer] 03/24/2027 108-9820 / / [id number] Humelock Ii Stem Ta6v Size 12 Cementless Implanted:Qt y: 1 on 07/11/2022 by Sami Angelo DO at OR [facility] Right: Shoulder [employer] 10/22/2026 311-0212 / / [id number] Cortical Screw Ta6v, 5mm, L. 24mm Implanted:Qt y: 1 on 07/11/2022 by Sami Angelo DO at OR [facility] Right: Shoulder [employer] 09/22/2023 107-4524 / / [id number] Humeral Cup 135/145 Degree, Standard, 36/+6 Implanted:Qt y: 1 on 07/11/2022 by Sami Angelo DO at OR [facility] Right: Shoulder 02/21/2025 313-0706 / / [id number] Screw Locking 4.5mm 20mm - [id number] Implanted:Qt y: 1 on 07/11/2022 by Sami Angelo DO at OR [facility] Right: Shoulder [employer] 03/24/2027 108-4520 [...] Pace Spouse Health Care Agent Care Teams Supervisor Coke Handling Relationship Specialty Start Date End Date Keagan Sanchez MD [address] [place] [phone] PCP - General Family Medicine 10/07/23 documented as of this encounter
--- OUTSIDE RECORDS SUMMARY | 2024-03-06 12:28 | External Medical Summary | Summary of Care ---
Author Name Unknown Organization [facility] Address [address] [place] [address] Phone [phone] Care Team Providers Care Health Information Administrator Name Role Phone Keagan Sanchez MD Primary Care Provider [phone] Reason for Visit * Reason Onset Date Comments Medication Refill Status Check 01/02/2024 Encounter Details Date Type Department Care Team ([facility] Contact Info) Description 12/28/[address] [address] Keagan Sanchez MD [address] [place] [address] [phone] Allergies Active Allergy Reactions Criticality Noted Date Comments Adhesive Tape 03/31/2023 Other Reaction(s): Tape- redness, paper tape/coban "ok", [id number] TAPE OK OR COBAN Clarithromycin High 03/31/2023 [...] Oral Tablet (Zetia)Indication s: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 Womack Followed by [facility] cardiology, Angela Littlejohn, next appt May 2024 [...] P R, 30MCG/0.3ML, IM, 12YRS AND ABOVE ([facility]) 12/11/2023 COVID-19, mRNA, LNP-s, PF, B ooster, [...] encounter Miscellaneous Notes * Telephone Encounter - Pretty Bucio LPN - 01/03/2024 9:20 AM EDTNo prescriptions requested or ordered in this encounter * Telephone Encounter - Alber Rogers furnace room supervisor - 01/02/2024 1:08 PM EDT Patient calling to check on status of refill request. Thank you, Alber Rogers Solar Energy Advisor [facility]) 01/02/2024,1:08 PM * Addendum Note - Earnestine Mckeon CPhT - 12/29/2023 8:45 AM EDTAddended by: EARNESTINE MCKEON on: 12/29/2023 08:45 AM Modules accepted: Orders * Telephone Encounter - Earnestine Mckeon CPhT - 12/29/2023 8:45 AM EDT Did you pend patient's preferred pharmacy and medication before forwarding?yes Pharmacy: [facility] Pending Prescriptions: Disp Refills Baclofen 20 MG Oral Tablet 360 Ta*0 Sig: Take 1 Tablet by mouth 4 times a day. Last Visit: 12/22/2023 (in [...] in this encounter * Telephone Encounter - Alma Nixon - 12/28/2023 10:15 PM EDTPending Prescriptions: Disp Refills Baclofen 20 MG Oral Tablet 360 Ta*0 Sig: TAKE ONE TABLET BY MOUTH FOUR TIMES A DAY (MORNING, NOON, EVENING AND BEDTIME) documented in this encounter Plan of Treatment Upcoming Encounters Date Type Department Care Team (Late st Contact Info) Description 01/03/2024 12:00 PM EDT Scheduled Telephone [facility], [facility] [address] [place] [address] Region, Nurse [facility] [address] [place] [address] 01/08/2024 1:00 PM EDT Office Visit Gastroenterology, [facility] [address] [address] Rachael Tavarez CRNP [address] [place] [address] 02/02/2024 12:30 PM EST Home Visit [facility], [facility] [address] [place] [address] Nika Guevara RN [address] [place] [address] 02/11/2024 10:30 AM EST Telemedicine [facility] [address] [place] [address] Oriana Isaacs PA-C [address] [place] [address] Edith Garcia, Community Health It Security Analyst [address] [place] [address] 06/07/2024 11:00 AM EDT Office Visit Cardiology [facility] [address] [facility] [address] [place] [address] Angela Littlejohn CRNP [address] [place] [address] 06/21/2024 10:40 AM EDT Office Visit Family Practice [facility] [address] [place] [address] Keagan Sanchez MD 68 [place] [address] 08/09/2024 10:00 AM EDT Office Visit Orthopaedics [facility] 16 [place] [address] Sami Angelo DO 16 [place] [address] 10/07/2024 2:40 PM EDT Office Visit Dermatology [facility] [address] [place] [address] Alden Ann PA-C [address] [place] [address] 11/25/2024 11:00 AM EDT Office Visit Neurology [facility] [place] [address] [place] [address] Kelly Waddell PA-C [address] [place] [address] Scheduled Procedures Name Priority Associated Diagnoses Date/Ti [...] D LEVEL ONCE IN A LIFETIME-USE SMARTSET# 49128 Completed 01/28/2022, 02/21/2015, 12/30/2011 RETIRED - COLONOSCOPY-EVERY [...] this encounter Medical Devices Implanted Type Area Fish Stringer Assembler Device Identifier Shelf Expiration Date Model / Serial / Lot Medtronic-05/27/2023 Implanted: (Quantity not on file) Neurostimulator MEDTRONIC : NEUROLOGIC PAIN 05/26/2049 [id number] / / [id number] Screw Jami Lacie 3 Ti Set - [id number] Implanted:Qt y: 6 on 03/10/2012 at OR [facility] Bilateral : Spine Lumbar LEVON : SPINE [id number] / / Screw Lacie Pa Ti 6.5x50mm - [id number] Implanted:Qt y: 4 on 03/10/2012 at OR [facility] Bilateral : Spine Lumbar LEVON : SPINE [id number] / / Rew Xia3 7.0 X 40mm Screws Implanted:Qt y: 2 on 03/10/2012 at OR [facility] Bilateral : Spine Lumbar [id number] / / Shaun Lacie 3 Ti 6x70mm - [id number] Implanted:Qt y: 1 on 03/10/2012 at OR [facility] N/A: Spine Lumbar LEVON : SPINE [id number] / / Shaun Lacie 3 Ti Max 6x80mm - [id number] Implanted:Qt y: 1 on 03/10/2012 at OR [facility] N/A: Spine Lumbar LEVON : SPINE [id number] / / 9 X 25 X 4 - 8 Avs Wedge Nose Cage Implanted:Qt y: 1 on 03/10/2012 at OR [facility] N/A: Spine Lumbar [id number] / / Stent Synergy Xd Mr 2.93v17zl - [id number] Implanted:Qt y: 1 on 09/20/2020 at [facility] [employer] [id number] 04/18/2022 [id number] / / [id number] Stent Synergy Xd Mr 2.22z28mg - [id number] Implanted:Qt y: 1 on 09/20/2020 at [facility] [employer] [id number] 04/25/2022 [id number] 2220 / / [id number] Screw Locking 4.5mm 15mm - [id number] Implanted:Qt y: 1 on 07/11/2022 by Sami Angelo DO at OR [facility] Right: Shoulder [employer] 11/22/2025 108-4515 / / [id number] Bseplate Jasmeet Cmntlss W Scrw - [id number] Implanted:Qt y: 1 on 07/11/2022 by Sami Angelo DO at OR [facility] Right: Shoulder [employer] 03/24/2027 105-0029 / / [id number] Glenosphere Rev Thee W Scrw - [id number] Implanted:Qt y: 1 on 07/11/2022 by Sami Angelo DO OR [facility] Right: Shoulder [employer] 04/24/2027 105-3610 / / [id number] Screw Locking 4.5mm 15mm - [id number] Implanted:Qt y: 1 on 07/11/2022 by Sami Angelo DO at OR [facility] Right: Shoulder [employer] 03/24/2027 108-4515 / / [id number] Screw Locking 4.5mm 20mm - [id number] Implanted:Qt y: 1 on 07/11/2022 by Sami Angelo DO at OR [facility] Right: Shoulder [employer] 03/24/2027 108-4520 / / [id number] Humelock Ii Stem Ta6v Size 12 Cementless Implanted:Qt y: 1 on 07/11/2022 by Sami Angelo DO at OR [facility] Right: Shoulder [employer] 10/22/2026 311-0212 / / [id number] Cortical Screw Ta6v, 5mm, L. 24mm Implanted:Qt y: 1 on 07/11/2022 by Sami Angelo, DO at OR [facility] Right: Shoulder [employer] 09/22/2023 107-4524 / / [id number] Humeral Cup 135/145 Degree, Standard, 36/+6 Implanted:Qt y: 1 on 07/11/2022 by Sami Angelo, DO at OR [facility] Right: Shoulder 02/21/2025 313-0706 / / [id number] Screw Locking 4.5mm 20mm - [id number] Implanted:Qt y: 1 on 07/11/2022 by Sami Angelo, DO at OR [facility] Right: Shoulder [employer] 03/24/2027 108-4520 [...] Agents on File Name Relationship Healthcare Agent [employer] p Communication Donny Pace Spouse Health Care Agent Care Teams Health Information Administrator Relationship Specialty Start Date End Date Keagan Sanchez MD [address] [place] [address] PCP - General Family Medicine 10/07/23 documented as of this encounter
--- OUTSIDE RECORDS SUMMARY | 2024-03-06 12:28 | External Medical Summary | Summary of Care ---
Author Name Unknown Organization [facility] Address [address] [place] [address] Phone [phone] Care Team Providers Care Machine Crater Name Role Phone Keagan Sanchez MD Primary Care Provider [phone] Reason for Visit * Reason Onset Date Comments Medication Refill Status Check 01/02/2024 Encounter Details Date Type Department Care Team ([facility] Contact Info) Description 12/28/[address] [address] Keagan Sanchez MD [address] [place] [address] [phone] Allergies Active Allergy Reactions Criticality Noted Date Comments Adhesive Tape 03/31/2023 Other Reaction(s): Tape- redness, paper tape/coban "ok", SCED-[id number]-[id number] TAPE OK OR COBAN Clarithromycin High 03/31/2023 [...] Oral Tablet (Zetia)Indication s:Coronary artery disease involving [place] coronary artery of [place] heart with unstable angina pectoris (HCC) TAKE [...] 04/12/2021 Coronary artery disease invo lving [place] coronary artery of [place] heart without angina pectoris 09/27/2020 Last Assessment & Plan: Has 3 stents (2 in LAD one in diagonal), placed at [facility] [place] [address] Womack Followed by [facility] cardiology, Angela Littlejohn, next appt May 2024 [...] P R, 30MCG/0.3ML, IM, 12YRS AND ABOVE ([facility]) 12/11/2023 COVID-19, mRNA, LNP-s, PF, B [...] Notes * Telephone Encounter - Alber Rogers, market manager - 01/02/2024 1:08 PM EDT Patient calling to check on status of refill request. Thank you, Alber Rogers Cardiology Consultant [facility]) 01/02/2024,1:08 PM * Addendum Note - Earnestine Barney CPhT - 12/29/2023 8:45 AM EDTAddended by: EARNESTINE BARNEY on: 12/29/2023 08:45 AM Modules accepted: Orders * Telephone Encounter - Earnestine Barney CPhT - 12/29/2023 8:45 AM EDT Did you pend patient's preferred pharmacy and medication before forwarding?yes Pharmacy: [facility] Pending Prescriptions: Disp Refills [...] 09:27 AM * Telephone Encounter - Earnestine Barney CPhT - 12/29/2023 8:43 AM EDTNo prescriptions [...] PM EDT Scheduled Telephone [facility], [facility] [address] [place] [address] [facility], Nurse [facility] [address] [place] [address] 01/08/2024 1:00 PM EDT Office Visit Gastroenterology, [facility] [address] [place] [address] Rachael Tavarez CRNP [address] [facility] [place] [address] 02/02/2024 12:30 PM EST Home Visit [facility], [facility] [address] [place] [address] Nika Guevara RN [address] [place] [address] 02/11/2024 10:30 AM EST Telemedicine [facility], [facility] [address] [place] [address] Oriana Isaacs PA-C [address] [place] [address] Edith Garcia, Community Health Pressure Tester [facility] [address] [place], [place] [phone] 06/07/2024 11:00 AM EDT Office Visit Cardiology [facility] [address] [facility] [address] [place] [address] Angela Littlejohn CRNP [address] [place] [address] 06/21/2024 10:40 AM EDT Office Visit Family Practice [facility] [address] [place] [address] Keagan Sanchez MD 68 [place] [address] 08/09/2024 10:00 AM EDT Office Visit Orthopaedics [facility] 16 [place] [address] Sami Angelo DO 16 [place] [address] 10/07/2024 2:40 PM EDT Office Visit Dermatology [facility] [address] [place] [address] Alden Ann PA-C 68 [place], [place] [phone] 11/25/2024 11:00 AM EDT Office Visit Neurology [facility] [address] [place] [address] Kelly Waddell PA-C [address] [place] [address] Scheduled Procedures Name Priority Associated Diagnoses Date/Ti [...] D LEVEL ONCE IN A LIFETIME-USE SMARTSET# 25522 Completed 01/28/2022, 02/21/2015, 12/30/2011 RETIRED - COLONOSCOPY-EVERY [...] this encounter Medical Devices Implanted Type Area Technical Communicator Device Identifier Shelf Expiration Date Model / Serial / Lot Medtronic-05/27/2023 Implanted: (Quantity not on file) Neurostimulator MEDTRONIC : NEUROLOGIC PAIN 05/26/2049 19793 / / [id number] Screw Jami Lacie 3 Ti Set - [id number] Implanted:Qt y: 6 on 03/10/2012 at OR [facility] Bilateral : Spine Lumbar LEVON : SPINE [id number] / / Screw Lacie Pa Ti 6.5x50mm - [id number] Implanted:Qt y: 4 on 03/10/2012 at [facility] Bilateral : Spine Lumbar LEVON : SPINE [id number] / / Vulcan Xia3 7.0 X 40mm Screws Implanted:Qt y: 2 on 03/10/2012 at [facility] Bilateral : Spine Lumbar [id number] / / Shaun Lacie 3 Ti 6x70mm - [id number] Implanted:Qt y: 1 on 03/10/2012 at OR [facility] N/A: Spine Lumbar LEVON : SPINE [id number] / / Shaun Lacie 3 Ti Max 6x80mm - [id number] Implanted:Qt y: 1 on 03/10/2012 at OR [facility] N/A: Spine Lumbar LEVON : SPINE [id number] / / 9 X 25 X 4 - 8 Avs Wedge Nose Cage Implanted:Qt y: 1 on 03/10/2012 at OR [facility] N/A: Spine Lumbar [id number] / / Stent Synergy Xd Mr 2.75r77vl - [id number] Implanted:Qt y: 1 on 09/20/2020 at [facility] [employer] [id number] 04/18/2022 [id number] 6220 / / [id number] Stent Synergy Xd Mr 2.65m98cf - [id number] Implanted:Qt y: 1 on 09/20/2020 at [facility] [employer] [id number] 04/25/2022 [id number] 2220 / / [id number] Screw Locking 4.5mm 15mm - [id number] Implanted:Qt y: 1 on 07/11/2022 by Sami Angelo DO at OR [facility] Right: Shoulder [employer] 11/22/2025 108-4515 / / [id number] Bseplate Jasmeet Cmntlss W Scrw - [id number] Implanted:Qt y: 1 on 07/11/2022 by Sami Angelo DO at OR [facility] Right: Shoulder [employer] 03/24/2027 105-0029 / / [id number] Glenosphere Rev Thee W Scrw - [id number] Implanted:Qt y: 1 on 07/11/2022 by Sami Angelo DO at OR [facility] Right: Shoulder [employer] 04/24/2027 105-3610 / / [id number] Screw Locking 4.5mm 15mm - [id number] Implanted:Qt y: 1 on 07/11/2022 by Sami Angelo DO at OR [facility] Right: Shoulder [employer] 03/24/2027 108-4515 / / [id number] Screw Locking 4.5mm 20mm - [id number] Implanted:Qt y: 1 on 07/11/2022 by Sami Angelo DO at OR [facility] Right: Shoulder [employer] 03/24/2027 108-4520 / / [id number] Humelock Ii Stem Ta6v Size 12 Cementless Implanted:Qt y: 1 on 07/11/2022 by Sami Angelo DO at OR [facility] Right: Shoulder [employer] 10/22/2026 311-0212 / / [id number] Cortical Screw Ta6v, 5mm, L. 24mm Implanted:Qt y: 1 on 07/11/2022 by Sami Angelo DO at OR [facility] Right: Shoulder [employer] 09/22/2023 107-4524 / / [id number] Humeral Cup 135/145 Degree, Standard, 36/+6 Implanted:Qt y: 1 on 07/11/2022 by Sami Angelo DO at OR [facility] Right: Shoulder 02/21/2025 313-0706 / / [id number] Screw Locking 4.5mm 20mm - [id number] Implanted:Qt y: 1 on 07/11/2022 by Sami Angelo DO at OR [facility] Right: Shoulder [employer] 03/24/2027 108-4520 [...] Agents on File Name Relationship Healthcare Agent [facility] p Communication Donny Pace Spouse Health Care Agent Care Teams Machine Crater Relationship Specialty Start Date End Date Keagan Sanchez MD [address] [place] [address] PCP - General Family Medicine 10/07/23 documented as of this encounter
--- OUTSIDE RECORDS SUMMARY | 2024-03-06 12:29 | External Medical Summary ---
Author Name Unknown Address Unknown Organization K1G:[facility] - [address] [place] [phone] Laboratory Report Ordering Provider Test Date Status ALAN PAINTING 01/02/2024 09:53:24 Final Observation Date Value Abnormality Reference (Units ) Status SYNC LEUKOCYTES IN BLOOD BY AUTOMATED COUNT 01/02/2024 09:53:24 5.50 4.00-10.80 (K/uL) Final Segs 01/02/2024 09:53:24 50.8 40.0-75.0 (%) Final Lymphs % 01/02/2024 09:53:24 37.6 18.0-42.0 (%) Final Monos 01/02/2024 09:53:24 8.9 1.0-11.0 (%) Final Eosinophils 01/02/2024 09:53:24 2.5 0.0-6.0 (%) Final Basos 01/02/2024 09:53:24 0.2 0.0-2.0 (%) Final Absolute Segs 01/02/2024 09:53:24 2.79 1.80-7.70 (K/uL) Final Lymphs, absolute 01/02/2024 09:53:24 2.07 1.00-4.80 (K/ul) Final Monos, Abs 01/02/2024 09:53:24 0.49 0.00-1.10 (K/uL) Final Eos, Abs 01/02/2024 09:53:24 0.14 0.00-0.70 (K/uL) Final Basos, Abs 01/02/2024 09:53:24 0.01 0.00-0.20 (K/uL) Final Performing Location [facility] - [address] [facility] [phone]
--- OUTSIDE RECORDS SUMMARY | 2024-03-06 12:29 | External Medical Summary | Summary of Care ---
Author Name Unknown Organization [facility] Address [address] [place] [facility] [place] [address] Phone [phone] Care Team Providers Care Quartz Orientator Name Role Phone Keagan Sanchez MD Primary Care Provider [phone] Reason for Visit * Reason Onset Date Comments [facility]: Maintenance 01/02/2024 Encounter Details Date Type Department Care Team (Late st Contact Info) Description 01/02/2024 Telephone [facility] [address] [facility] [place] [address] Brenda Smith, [place] [address] [place] [facility] [place] [address] [facility]: Maintenance Allergies Active Allergy Reactions Criticality Noted Date Comments Adhesive Tape 03/31/2023 Other Reaction(s): Tape- redness, paper tape/coban "ok", [id number] TAPE OK OR COBAN Clarithromycin High 03/31/2023 [...] Oral Tablet (Zetia)Indication s:Coronary artery disease involving duckwater coronary artery of duckwater heart with unstable angina pectoris (HCC) TAKE [...] hypothyroidism 04/12/2021 Coronary artery disease invo lving duckwater coronary artery of duckwater heart without angina pectoris 09/27/2020 Last Assessment & Plan: Has 3 stents (2 in LAD one in diagonal), placed at [facility] [place] [address] Womack Followed by [facility] cardiology, Angela Littlejohn, next appt May 2024 [...] encounter Miscellaneous Notes * Telephone Encounter - Gaviota Barry RN - 01/02/2024 11:59 AM EDT [facility] ED [facility] Notification Date: 01/02/2024 Time: 11:59 AM [facility] Subprogram: Short-Term Management (less than 3 months) [facility] Episode Start Date: No linked episodes [facility] Enrollment Status: Currently Enrolled Action Taken on [employer] Alert and Outcome of ED Visit: Review ONLY: Phone Call Follow Up ONLY Scheduled Gaviota Barry RN * Telephone Encounter - Brenda Smith RN - 01/02/2024 9:33 AM EDT TT alert for pt arrival to ED. No diagnosis or disposition at this time. F/u call scheduled. documented in this encounter Plan of Treatment Upcoming Encounters Date Type Department Care Team (Late st Contact Info) Description 01/03/2024 12:00 PM EDT Scheduled Telephone [facility], [facility] [address] [place] [address] Region, Nurse [facility] [address] [place] [address] 01/08/2024 1:00 PM EDT Office Visit Gastroenterology, [facility] [address] [facility] [place] [address] Rachael Tavarez CRNP [address] [facility] [place] [address] 02/02/2024 12:30 PM EST Home Visit [facility], [facility] [address] [place] [address] Nika Guevara RN [address] [place] [address] 02/11/2024 10:30 AM EST Telemedicine [facility], [facility] [address] [place] [address] Oriana Isaacs PA-C [address] [place] [address] Edith Garcia, Community Health Manager Ethics [address] [place] [address] 06/07/2024 11:00 AM EDT Office Visit Cardiology [facility] [address] [facility] [address] [place] [phone] Angela Littlejohn CRNP [address] [place] [address] 06/21/2024 10:40 AM EDT Office Visit Family [facility] [address] [place] [phone] Keagan Sanchez MD [address] [place] [address] 08/09/2024 10:00 AM EDT Office Visit Orthopaedics [facility] [address] [place] [phone] Sami Angelo DO [address] [place] [address] 10/07/2024 2:40 PM EDT Office Visit Dermatology [facility] [address] [place] [phone] Alden Ann PA-C [address] [place] [address] 11/25/2024 11:00 AM EDT Office Visit [facility] [address] [facility] [address] Kelyl Waddell PA-C [address] [facility] [place] [address] Scheduled Procedures Name Priority Associated Diagnoses Date/Ti [...] D LEVEL ONCE IN A LIFETIME-USE SMARTSET# [id number] Completed 01/28/2022, 02/21/2015, 12/30/2011 RETIRED - COLONOSCOPY-EVERY [...] this encounter Medical Devices Implanted Type Area Sheet Layer Device Identifier Shelf Expiration Date Model / Serial / Lot Medtronic-05/27/2023 Implanted: (Quantity not on file) Neurostimulator [employer] : NEUROLOGIC PAIN 05/26/2049 [id number] / / [id number] Screw Jami Lacie 3 Ti Set - [id number] Implanted:Qt y: 6 on 03/10/2012 at [place] [facility] Bilateral : Spine Lumbar LEVON : SPINE [id number] / / Screw Lacie Pa Ti 6.5x50mm - [id number] Implanted:Qt y: 4 on 03/10/2012 at OR [facility] Bilateral : Spine Lumbar LEVON : SPINE [id number] / / Levon Xia3 7.0 X 40mm Screws Implanted:Qt y: 2 on 03/10/2012 at OR [facility] Bilateral : Spine Lumbar [id number] / / Shaun Lacie 3 Ti 6x70mm - [id number] Implanted:Qt y: 1 on 03/10/2012 at OR [facility] N/A: Spine Lumbar LEVON : SPINE [id number] / / Shaun Lacie 3 Ti Max 6x80mm - [id number] Implanted:Qt y: 1 on 03/10/2012 at OR [facility] N/A: Spine Lumbar LEVON : SPINE [id number] / / 9 X 25 X 4 - 8 Avs Wedge Nose Cage Implanted:Qt y: 1 on 03/10/2012 at OR [facility] N/A: Spine Lumbar [id number] / / Stent Synergy Xd Mr 2.09a53dw - [id number] Implanted:Qt y: 1 on 09/20/2020 at [facility] Focus IP [id number] 04/18/2022 [id number] / / [id number] Stent Synergy Xd Mr 2.92n26yp - [id number] Implanted:Qt y: 1 on 09/20/2020 at [facility] Focus IP [id number] 04/25/2022 [id number] / / [id number] Screw Locking 4.5mm 15mm - [id number] Implanted:Qt y: 1 on 07/11/2022 by Sami Angelo DO at OR [facility] Right: Shoulder [employer] 11/22/2025 108-4515 / / [id number] Bseplate Jasmeet Cmntlss W Scrw - [id number] Implanted:Qt y: 1 on 07/11/2022 by Sami Angelo DO at OR [facility] Right: Shoulder [employer] 03/24/2027 105-0029 / / [id number] Glenosphere Rev Thee W Scrw - [id number] Implanted:Qt y: 1 on 07/11/2022 by Sami Angelo DO at OR [facility] Right: Shoulder [employer] 04/24/2027 105-3610 / / [id number] Screw Locking 4.5mm 15mm - [id number] Implanted:Qt y: 1 on 07/11/2022 by Sami Angelo DO at OR [facility] Right: Shoulder [employer] 03/24/2027 108-4515 / / [id number] Screw Locking 4.5mm 20mm - [id number] Implanted:Qt y: 1 on 07/11/2022 by Sami Angelo DO at OR [facility] Right: Shoulder [employer] 03/24/2027 108-4520 / / [id number] Humelock Ii Stem Ta6v Size 12 Cementless Implanted:Qt y: 1 on 07/11/2022 by Sami Angelo DO at OR [facility] Right: Shoulder [employer] 10/22/2026 [id number] / / [id number] Cortical Screw Ta6v, 5mm, L. 24mm Implanted:Qt y: 1 on 07/11/2022 by Sami Angelo DO at OR [facility] Right: Shoulder [employer] 09/22/2023 107-4524 / / [id number] Humeral Cup 135/145 Degree, Standard, 36/+6 Implanted:Qt y: 1 on 07/11/2022 by Sami Angelo, DO at OR [facility] Right: Shoulder 02/21/2025 [id number] / / [id number] Screw Locking 4.5mm 20mm - [id number] Implanted:Qt y: 1 on 07/11/2022 by Sami Angelo, DO at OR [facility] Right: Shoulder [employer] 03/24/2027 108-4520 [...] Agents on File Name Relationship Healthcare Agent [facility] p Communication Donny Wecristysloan Spouse Health Care Agent Care Teams Quartz Orientator Relationship Specialty Start Date End Date Keagan Sanchez MD [address] [place] [id number] PCP - General Family Medicine 10/07/23 documented as of this encounter
--- OUTSIDE RECORDS SUMMARY | 2024-03-06 12:29 | External Medical Summary | Summary of Care ---
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 Role Phone Keagan Sanchez MD Primary Care Provider [phone] Reason for Referral * Evaluate & Treat - Unlimited Visits (Within 30 days (routine)) - Authorized Specialty Diagnoses / Procedures Referred By Lynn helton Referred To Contact Urology Diagnoses Osteoarthritis of spine with radiculopathy, lumbosacral region Niranjan Brown MD [address] [place] [address] Referral ID Status Reason Start Date Expiration Date Visits Requested Visits Authorized [id number] Authorized Specialty Services Required 12/30/[phone] Question Answer Referral Priority Within 30 days (routine) Where should this appointment be scheduled[facility] What is the patient being referred for? Urinary Concerns Reason for Visit * Evaluate & Treat - Unlimited Visits (Within 10 days (routine)) - Authorized Specialty Diagnoses / Procedures Referred By Contvon t Referred To Contact Neuro/Ortho Surgery - Spine. / Neurological Surgery Diagnoses Low back pain, unspecified back pain laterality, unspecified chronicity, unspecified whether sciatica present DDD (degenerative disc disease), lumbar Lumbar radiculopathy Failed back syndrome Kosta Thomas MD [address] [place] [address] Josesito Martinez MD [address] [place] [address] Referral ID Status Reason Start Date Expiration Date Visits Requested Visits Authorized [id number] Authorized Specialty Services Required 12/19/[phone] Encounter Details Date Type Department Care Team (Latest Contact Info) Description 12/30/2023 10:00 AM EDT Office Visit Neurosurgery, [place] [address] [place] [address] Niranjan Borwn MD [address] [place] [address] Osteoarthritis of spine with radiculopathy, lumbosacral region* Allergies Active Allergy Reactions Criticality Noted Date Comments Adhesive Tape 03/31/2023 Other Reaction(s): Tape- redness, paper tape/coban "ok", [id number] TAPE OK OR COBAN Clarithromycin High 03/31/2023 Other Reaction(s): Rash, diarrhea, RASH,DIARRHEA Duloxetine Hcl Flushing,Nausea/vomi tin g High 10/20/2019 Erythromycin Base Rash 03/14/2004 Orlistat Low 03/31/2023 Other Reaction(s): GI UPSET Penicillins Rash 03/14/2004 Prednisone Other (Please comment) High 10/10/2023 pancreatitis Sulfa Antibiotics Rash 03/14/2004 documented as of this encounter (statuses as of 12/30/2023) Medications Medication Sig Dispensed Refills Start Date [...] Oral Tablet (Zetia)Indications :Coronary artery disease involving [place] coronary artery of [place] heart with unstable angina pectoris (HCC) TAKE [...] before bedtime. 60 Tablet 2 12/19/2023 Active traMADol HCl 50 MG Oral Tablet (Ultram)Indication s:Postlaminectomy syndrome, lumbar Take 2 Tablets by mouth every 6 hours as needed for moderate pain. Refill on or after 12/30/2023 240 Tablet 12/22/2023 Active Gabapentin 600 MG Oral Tablet (Neurontin)Indicat ions:DDD (degenerative disc disease), cervical,Postlamin ectomy syndrome, lumbar Take 2 tabs in morning, 2 tabs at lunch and 2 tabs at night 180 Tablet 5 12/25/2023 Active documented as of this encounter (statuses as of 12/30/2023) Active Problems Problem Noted Date Diagnosed Date [...] hypothyroidism 04/12/2021 Coronary artery disease invo lving [place] coronary artery of [place] heart without angina pectoris 09/27/2020 Last Assessment & Plan: Has 3 stents (2 in LAD one in diagonal), placed at [facility] [address] Womack Followed by [facility] cardiology, Angela Littlejohn, next appt May 2024 [...] as of this encounter (statuses as of 12/30/2023) Resolved Problems Problem Noted Date Diagnosed Date [...] as of this encounter (statuses as of 12/30/2023) Immunizations Name Administration Dates Next Due COVID-19 [...] No 08/24/2023 documented as of this encounter Progress Notes * Niranjan Brown MD - 12/30/2023 10:56 AM EDT PROGRESS NOTE - Neurosurgery [facility] [place] [address] Name: Shalini Pace Date: 12/30/2023 Time: 10:57 AM 63-year-old woman I am meeting for the 1st time. She has had multiple previous lumbar surgeries culminating in an L4-S1 fusion. She also has a spinal cord stimulator. 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 She has been having years of bladder dysfunction. She has been evaluated by a urologistwho diagnosed her with a neurogenic bladder. She has never followed up. She has ongoing radiculopathies down the legs, worse on the left, sounds like L5. On exam I do not detect any weakness. She does ambulate with a limp and a cane. On exam there was no weakness or pathologic reflexes. Gait is antalgic. MRI demonstrates widely decompressed central canal, I do not see any active compression of any neural element all there is some adjacent segment degenerative changes effacing the left L3 foramen. Clinically she has no left L3 radiculopathy. There is some clumping of the roots centrally interpreted as potential arachnoiditis which may be the cause of the bladder stuff. Right now I do not see any role for additional surgery. She says she had a recent fall and the backpain has been a little bit more than typical. Plan to get EMG of the bilateral lower extremities, Iwould like to have a re-engage with Urology, we will also get a DEXA scan as she has relatively lowHounsfield units diffusely an old compression fractures. I think she probably has osteoporosis. I do not think she would benefit from any additional surgery at [place] of these are chronic issues and arachnoiditis. I will follow up with her once all these additional tests are complete. She voices understanding requests to proceed. All questions answered. PAST MEDICAL HISTORY: Past Medical History: Diagnosis Date Acute viral syndrome 06/06/2018 Acute condition Adjustment disorder with depressed mood Colitis, acute Acute condition Diverticulitis of colon Epigastric pain 05/01/2021 Family history of colonic polyps Herpetic vulvovaginitis Hypothyroidism Lumbago 2008 Migraine with aura Mixed dyslipidemia Myalgia and myositis, unspecified 06/18/2012 Other anxiety states Other chest pain 02/27/2007 Acute condition Other specified gastritis without mention of hemorrhage 03/29/08 mod chronic gastritis Vertebral fracture, pathological 08/30/2009 No longer current PAST SURGICAL HISTORY: Past Surgical History: Procedure Laterality Date ABD/PELVIS CT W/ IV AND W/ PO CONTRAST 03/27/2008 ANORECTAL EXAM ,DIAG, REQUIRING ANESTHESIA N/A 10/20/2015 ANORECTAL EXAM UNDER ANESTHESIA performed by Domenico Barraza DO at OR [facility] AUTOGRAFT, SPINE SURGERY, LOCAL 03/10/2012 OBTAIN BONE GRAFT FOR SPINE SURGERY LOCAL performed by Norm Billings DO at OR [facility] CHEMODENERVATION INTERNAL ANAL SPHINCTER N/A 10/20/2015 CHEMODENERVATION INTERNAL ANAL SPHINCTER performed by Domenico Barraza DO at OR [facility] COLONOSCOPY, DIAGNOSTIC (RECTUM) 01/19/2007 COLONOSCOPY, DIAGNOSTIC (RECTUM) 08/10/2013 normal, repeat 5 yrs/COLONOSCOPY FLEXIBLE PROXIMAL DIAGNOSTIC performed by Tete Cr DO at ENDOSCOPY [facility] COLONOSCOPY, DIAGNOSTIC (RECTUM) 04/18/2022 end to end colo-colonic anastomosis, diverticulosis in sigmoid / no specimens collected / 5 year recall / COLONOSCOPY FLEXIBLE PROXIMAL DIAGNOSTIC performed by Tete Cr DO at ENDOSCOPY [facility] CORONARY ANGIOGRAPHY W/LEFT HEART CATH Left 02/25/2020 CORONARY ANGIOGRAPHY W/LEFT HEART CATH performed by Ilan Plascencia DO at [facility]ARDIAC LABS [facility] CORONARY ANGIOGRAPHY W/LEFT HEART CATH Right 02/25/2020 CORONARY ANGIOGRAPHY W/LEFT HEART CATH performed by Jerrica Barboza MD at [facility] CORONARY ANGIOGRAPHY W/LEFT HEART CATH Right 09/20/2020 CORONARY ANGIOGRAPHY W/LEFT HEART CATH performed by Kelton Womack MD at [facility] EGD, FLEXIBLE, DIAGNOSTIC 07/21/2014 mild gastritis/ESOPHAGOGASTRODUODENOSCOPY (EGD), FLEXIBLE, TRANSORAL, DIAGNOSTIC performed by Lalitha Cr DO at ENDOSCOPY [facility] EGD, FLEXIBLE, DIAGNOSTIC 04/17/2021 fundic gastric polyp / ESOPHAGOGASTRODUODENOSCOPY (EGD), FLEXIBLE, TRANSORAL, DIAGNOSTIC performed by Rosario Pope DO at ENDOSCOPY [facility] EGD, FLEXIBLE, DIAGNOSTIC N/A 06/26/2023 gastritis/multiple gastric polyps/biopsies show fundic polyps/EGD EGD, FLEXIBLE, DIAGNOSTIC 06/26/2023 ESOPHAGOGASTRODUODENOSCOPY (EGD), FLEXIBLE, TRANSORAL, DIAGNOSTIC performed by Rosario Pope DOat ENDOSCOPY [facility] EGD, FLEXIBLE, W/BIOPSY 03/29/2008 mod chronic gastritis EXCLUSION SM.BOWEL FROM PELVIS 03/24/2001 13 inches removed INFORMATION 10/15/2011 laparoscopic ventral hernia repair with mesh [facility] - Dr. Sourav Wood INJECT DX/THER SUBSTANCE INTERLAMINAR CERVICAL/THORACIC W IMAGE GUIDE 04/08/2022 INJECTION SPINE LUMBAR CERVICAL OR THORACIC performed by Anuj Pierce DO at OR [facility] LUMBAR HEMILAMINECTOMY 03/13/2009 LAMINOTOMY DECOMPRESSION NERVE ROOT LUMBAR performed by NORM BILLINGS at [facility] LUMBAR SPINE FUSION, POST INTERBODY 03/10/2012 ARTHRODESIS SPINE POSTERIOR INTERBODY WITH LAMINECTOMY LUMBAR performed by Norm Billings DO [facility] LUMBAR SPINE FUSION, POSTEROLATERAL 03/10/2012 ARTHRODESIS SPINE POSTERIOR LUMBAR performed by Norm Billings DO at [facility] MICROSURGERY ADD-ON 07/06/2012 MICROSURGICAL SURGERY REQUIRING MICROSCOPE LISTED SEPARATELY performed by Norm Billings DO at [facility] NM GASTRIC EMPTYING STUDY SOLID 03/31/2008 T 1/2= 103 minutes REMOVE ADDED SPINE LAMINA, 1 SEG 03/10/2012 LAMINECTOMY FACETECTOMY AND FORAMINOTOMY ADDITIONAL LEVELS performed by Norm Billings DO at [facility] REMOVE GALLBLADDER REMOVE LUMBAR SPINE LAMINA, 1 SEG 03/10/2012 LAMINECTOMY FACETECTOMY AND FORAMINOTOMY POSTERIOR LUMBAR performed by Norm Billings DO at [facility] REMOVE LUMBAR SPINE LAMINA, 1 SEG N/A 04/23/2019 LAMINECTOMY FACETECTOMY AND FORAMINOTOMY LUMBAR performed by Lm Valle MD at [facility] REPAIR SPINAL FLUID LEAK,W/LAMINECT 07/06/2012 REPAIR SPINAL CEREBROSPINAL FLUID LEAK WITH POSTERIOR LAMINECTOMY performed by Norm Billings DO at [facility] REVERSE TOTAL SHOULDER ARTHROPLASTY Right 07/11/2022 REVERSE TOTAL SHOULDER ARTHROPLASTY performed by Sami Angelo DO at [facility] REVISION OF ULNAR NERVE AT ELBOW SPINE FIXATION, POSTERIOR, (ELDER) 03/10/2012 POSTERIOR SPINE INSTRUMENTATION NON SEGMENTAL performed by Norm Billings DO at [facility] TOTAL HYSTERECTOMY 03/24/1981 FAMILY HISTORY: Family History Problem Relation Name Age of Onset Heart Disorder Father NC--triple bipass SOCIAL HISTORY: Social History Tobacco Use Smoking status: Never Smokeless tobacco: Never Vaping Use Vaping status: Never Used Substance Use Topics Alcohol use: No Drug use: Never Current Outpatient Medications: Gabapentin 600 MG Oral Tablet (Neurontin), Take 2 tabs in morning, 2 tabs at lunch and 2 tabs at night, Disp: 180 Tablet, Rfl: 5 traMADol HCl 50 MG Oral Tablet (Ultram), Take 2 Tablets by mouth every 6 hours as needed for moderate pain. Refill on or after 12/30/2023, Disp: 240 Tablet, Rfl: 0 Acetaminophen 500 MG Oral Tablet (Tylenol Extra Strength), Take 1 Tablet by mouth every 6 hours as needed., Disp: , Rfl: Amitriptyline HCl 50 MG Oral Tablet (Elavil), Take 1 Tablet by mouth at bedtime., Disp: , Rfl: Diclofenac Sodium 50 MG Oral Tablet Delayed Release (Voltaren), Take 1 Tablet by mouth in the morning and 1 Tablet before bedtime., Disp: 60 Tablet, Rfl: 2 Ondansetron ODT 2 MG ON TONGUE TBDP, Place 0.5 Tablets on tongue every 8 hours as needed for Nausea. dissolve on tongue., Disp: , Rfl: tiZANidine HCl 4 MG Oral Tablet (Zanaflex), Take 1 Tablet by mouth in the morning and 1 Tablet at noon and 1 Tablet before bedtime. (Patient not taking: Reported on 12/29/2023), Disp: 90 Tablet, Rfl: 2 Comirnaty 30 MCG/0.3ML Intramuscular Suspension Prefilled Syringe (COVID-19 mRNA Vaccine 12 years and above [employer]), Inject into a large muscle. (Patient not taking: Reported on 12/22/2023), Disp: 0.3mL, Rfl: 0 Topiramate 25 MG Oral Tablet (topAMAX), Take 2 tablets by mouth nightly, Disp: 180 Tablet, Rfl: 2 Levothyroxine Sodium 112 MCG Oral Tablet (Levoxyl), TAKE 1 TABLET BY MOUTH DAILY AT LEAST 30 MINUTES PRIOR TO FIRST MEAL OF THE DAY OR OTHER MEDICATIONS, Disp: 90 Tablet, Rfl: 1 Ezetimibe 10 MG Oral Tablet (Zetia), TAKE ONE TABLET BY MOUTH EVERY MORNING, Disp: 90 Tablet, Rfl: 3 metFORMIN HCl 500 MG Oral Tablet (Glucophage), Take 1 Tablet by mouth 2 times a day with morning and evening meals., Disp: 60 Tablet, Rfl: 4 Lactulose 10 GM/15ML Oral Solution (Constulose), Take 15 mL by mouth 2 times a day as needed for Constipation. severe constipation, Disp: 237 mL, Rfl: 1 Famotidine 20 MG Oral Tablet (Pepcid), Take 1 Tablet by mouth in the morning and 1 Tablet before bedtime., Disp: 60 Tablet, Rfl: 11 Sertraline HCl 100 MG Oral Tablet (Zoloft), , Disp: , Rfl: Baclofen 20 MG Oral Tablet, TAKE ONE TABLET BY MOUTH FOUR TIMES A DAY (MORNING, NOON, EVENING AND BEDTIME), Disp: 360 Tablet, Rfl: 0 Metoclopramide HCl 10 MG Oral Tablet (Reglan), TAKE ONE TABLET BY MOUTH THREE TIMES A DAY THIRTY MINUTES BEFORE MEALS, Disp: 270 Tablet, Rfl: 0 hydrOXYzine HCl 50 MG Oral Tablet, Take 1 Tablet by mouth 3 times a day as needed for Anxiety (hyperventilation)., Disp: 30 Tablet, Rfl: 0 Levalbuterol Tartrate 45 MCG/ACT Inhalation Aerosol (Xopenex HFA), Inhale 2 Puffs by mouth every 4 hours as needed for Wheezing., Disp: 15 g, Rfl: 12 Metoprolol Succinate ER 25 MG Oral Tablet Extended Release 24 Hour (toPROL XL), TAKE ONE TABLET BY MOUTH IN THE MORNING., Disp: 90 Tablet, Rfl: 3 Levalbuterol HCl 1.25 MG/3ML Inhalation Nebulization Solution (Xopenex), Inhale 1 Ampule via nebulizer every 4 hours as needed for Wheezing., Disp: 72 mL, Rfl: 12 Sucralfate 1 GM Oral Tablet (Carafate), TAKE ONE TABLET BY MOUTH IN THE MORNING AND TAKE ONE TABLETBEFORE BEDTIME, Disp: 180 Tablet, Rfl: 3 amLODIPine Besylate 5 MG Oral Tablet (Norvasc), TAKE ONE TABLET BY MOUTH IN THE MORNING, Disp: 90 Tablet, Rfl: 3 Nitroglycerin 0.4 MG Sublingual Tablet Sublingual (Nitrostat), Place 1 Tablet under the tongue every 5 minutes as needed for Pain, Chest. (Patient not taking: Reported on 12/22/2023), Disp: 25 Tablet,Rfl: 1 Atorvastatin Calcium 80 MG Oral Tablet (Lipitor), TAKE ONE TABLET BY MOUTH EVERY EVENING, Disp: 90 Tablet, Rfl: 3 Pantoprazole Sodium 40 MG Oral Tablet Delayed Release (Protonix), TAKE ONE TABLET BY MOUTH EVERY DAY 30 MNUTES PRIOR TO FIRST MEAL OF THE DAY, DO NOT CRUSH SPLIT OR CHEW TABLET, Disp: 90 Tablet, Rfl:3 Aspirin 81 MG Oral Tablet Chewable, Take 1 Tab by mouth daily., Disp: 30 Tab, Rfl: 11 Sennosides (SENNA) 8.6 MG Tablet, TAKE 2 TABLETS BY MOUTH DAILY NEEDED FOR CONSTIPATION., Disp: 60 Tab, Rfl: 5 Cholecalciferol (VITAMIN D) 1000 UNIT Capsule, Take 1 Cap by mouth daily., Disp: 30 Cap, Rfl: 11 ALLERGIES: Clarithromycin, Duloxetine hcl, Prednisone, Adhesive tape, Erythromycin base, Penicillins, Sulfa antibiotics, and Orlistat VITALS: There were no vitals taken for this visit. Niranjan Gorman Neurosurgery This document was dictated using voice recognition software. Please excuse any errors. documented in this encounter Plan of Treatment Upcoming Encounters Date Type Department Care Team (Late st Contact Info) Description 01/08/2024 1:00 PM EDT Office Visit Gastroenterology, [facility] [address] [facility] [place] [address] Rachael Tavarez CRNP [address] [facility] [place] [address] 02/02/2024 12:30 PM EST Home Visit [facility] [address] [place] [address] Nika Guevara RN [address] [place] [address] 02/11/2024 10:30 AM EST Telemedicine [facility] [address] [place] [address] Oriana Isaacs PA-C [address] [place] [address] Edith Garcia, [facility] Photo [employer]orer [address] [place] [address] 06/07/2024 11:00 AM EDT Office Visit Cardiology [address] [place] [address] Angela Littlejohn CRNP [address] [place] [address] 06/21/2024 10:40 AM EDT Office Visit Family Practice [address] [phone] Keagan Sanchez MD [address] [place] [address] 08/09/2024 10:00 AM EDT [facility] [address] [place] [address] Sami Angelo DO [address] [place] [address] 10/07/2024 2:40 PM EDT Office Visit Dermatology [facility] [address] [place] [phone] Alden Ann PA-C [address] [place] [address] 11/25/2024 11:00 AM EDT Office Visit Neurology [facility] [address] [place] [address] Kelly Waddell PA-C [address] [place] [address] Scheduled Orders Name Type Priority Associated Diagnoses Orde r Schedule DEXA SCAN/BONE MINERAL AXIAL Medical Imaging Routine Osteoarthritis of spine with radiculopathy, lumbosacral region Ordered: 12/30/2023 XR SPINE SCOLIOSIS T AND L 1 VIEW Medical Imaging Routine Osteoarthritis of spine with radiculopathy, lumbosacral region Ordered: 12/30/2023 Scheduled Procedures Name Priority Associated Diagnoses Date/Ti me COLONOSCOPY FLEXIBLE PROXIMA L DIAGNOSTIC Recall Family history of colonic polyps Scheduled Referrals Name Type Priority Associated Diagnoses Orde r Schedule ADULT/PEDS UROLOGY REFERRAL OP Referral Within 30 days (routine) Osteoarthritis of spine with radiculopathy, lumbosacral region Ordered: 12/30/2023 Health Maintenance Due Date Last Done Comments [...] 12/24/2023, 06/23, 10/30/2022, Additional history exists GFR 12/25/2024 12/26/2023, 04/2023, 12/22/2023, Additional history exists DTap/Tdap Vaccines (3 - Td or Tdap) 10/10/2026 10/10/2016, 10/26/2005 Albumin/Creatinine Ratio 12/21/2026 12/22/2023 Colonoscopy 04/18/2027 04/18/2022, 03/25, 08/10/2013, Additional history exists Colorectal Cancer Screening 04/18/2027 VITAMIN D LEVEL ONCE IN A LIFETIME-USE SMARTSET# 11595 Completed 01/28/2022, 02/21/2015, 12/30/2011 RETIRED - COLONOSCOPY-EVERY [...] this encounter Medical Devices Implanted Type Area Business Mail Entry Clerk Device Identifier Shelf Expiration Date Model / Serial / Lot Medtronic-05/27/2023 Implanted: (Quantity not on file) Neurostimulator [employer] : NEUROLOGIC PAIN 05/26/2049 [id number] / / [id number] Screw Jami Lacie 3 Ti Set - [id number] Implanted:Qt y: 6 on 03/10/2012 at [place] [facility] Bilateral : Spine Lumbar LEVON : SPINE [id number] / / Screw Lacie Pa Ti 6.5x50mm - [id number] Implanted:Qt y: 4 on 03/10/2012 at [facility] Bilateral : Spine Lumbar LEVON : SPINE [id number] / / Levon Xia3 7.0 X 40mm Screws Implanted:Qt y: 2 on 03/10/2012 at OR [facility] Bilateral : Spine Lumbar [id number] / / Shaun Lacie 3 Ti 6x70mm - [id number] Implanted:Qt y: 1 on 03/10/2012 at OR [facility] N/A: Spine Lumbar LEVON : SPINE [id number] / / Shaun Lacie 3 Ti Max 6x80mm - [id number] Implanted:Qt y: 1 on 03/10/2012 at OR [facility] N/A: Spine Lumbar LEVON : SPINE [id number] / / 9 X 25 X 4 - 8 Avs Wedge Nose Cage Implanted:Qt y: 1 on 03/10/2012 at OR [facility] N/A: Spine Lumbar [id number] / / Stent Synergy Xd Mr 2.53l20lz - [id number] Implanted:Qt y: 1 on 09/20/2020 at [facility] wali [id number] 04/18/2022 [id number] / / [id number] Stent Synergy Xd Mr 2.42v89vc - [id number] Implanted:Qt y: 1 on 09/20/2020 at [facility] wali [id number] 04/25/2022 [id number] / / [id number] Screw Locking 4.5mm 15mm - [id number] Implanted:Qt y: 1 on 07/11/2022 by Sami Angelo DO at [facility] Right: Shoulder [employer] 11/22/2025 [id number] / / [id number] Bseplate Jasmeet Cmntlss W Scrw - [id number] Implanted:Qt y: 1 on 07/11/2022 by Sami Angelo DO at OR [facility] Right: Shoulder [employer] 03/24/2027 105-0029 / / [id number] Glenosphere Rev Thee W Scrw - [id number] Implanted:Qt y: 1 on 07/11/2022 by Sami Angelo DO at OR [facility] Right: Shoulder [employer] 04/24/2027 105-3610 / / [id number] Screw Locking 4.5mm 15mm - [id number] Implanted:Qt y: 1 on 07/11/2022 by Sami Angelo DO at [facility] Right: Shoulder [employer] 03/24/2027 108-4515 / / [id number] Screw Locking 4.5mm 20mm - [id number] Implanted:Qt y: 1 on 07/11/2022 by Sami Angelo DO at OR [facility] Right: Shoulder [employer] 03/24/2027 [id number] / / [id number] Humelock Ii Stem Ta6v Size 12 Cementless Implanted:Qt y: 1 on 07/11/2022 by Sami Angelo DO at [facility] Right: Shoulder [employer] 10/22/2026 [id number] / / [id number] Cortical Screw Ta6v, 5mm, L. 24mm Implanted:Qt y: 1 on 07/11/2022 by Sami Angelo DO at [facility] Right: Shoulder [employer] 09/22/2023 107-4524 / / [id number] Humeral Cup 135/145 Degree, Standard, 36/+6 Implanted:Qt y: 1 on 07/11/2022 by Sami Angelo DO at OR [facility] Right: Shoulder 02/21/2025 [id number] / / [id number] Screw Locking 4.5mm 20mm - [id number] Implanted:Qt y: 1 on 07/11/2022 by Sami Angelo DO at OR [facility] Right: Shoulder [employer] 03/24/2027 108-4520 / / [id number] documented as of this encounter Visit Diagnoses Diagnosis Osteoarthritis of spine with radiculopathy, lumbosacral region- Primary documented in this encounter Advance Directives * [...] Agents on File Name Relationship [facility] Donny Pace Spouse Health Care Agent Care Teams 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
--- OUTSIDE RECORDS SUMMARY | 2024-03-06 12:29 | External Medical Summary | Summary of Care ---
Author Name Unknown Organization [facility] Address [address] [place] [address] Phone [phone] Care Team Providers Care Application Trainer Name Role Phone Keagan Sanchez MD Primary Care Provider [phone] Reason for Visit * Reason Onset Date Comments Appointment 12/30/2023 I called to sche pamelae emg appt, patient is not sure she wants to have testing done. Will call if she decides to have it completed. Encounter Details Date Type Department Care Team (Late st Contact Info) Description 12/30/2023 Telephone Neurophysiology [address] [place] [address] Ced Ross No Resource [address] [place] [address] Appointment (I called to schedule emg appt... Allergies Active Allergy Reactions Criticality Noted Date Comments Adhesive Tape 03/31/2023 Other Reaction(s): Tape- redness, paper tape/coban "ok", [id number] TAPE OK OR COBAN Clarithromycin High 03/31/2023 [...] Oral Tablet (Zetia)Indications :Coronary artery disease involving ass[place] and sioux coronary artery of assiniboine and sioux heart with unstable angina pectoris (HCC) TAKE [...] hypothyroidism 04/12/2021 Coronary artery disease invo lving ass[place] and sioux coronary artery of assiniboine and sioux heart without angina pectoris 09/27/2020 Last Assessment & Plan: Has 3 stents (2 in LAD one in diagonal), placed at [facility] [address] Womack Followed by [facility] cardiology, Angela Littlejohn, next appt May 2024 [...] P R, 30MCG/0.3ML, IM, 12YRS AND ABOVE (Pf[facility]) 12/11/2023 COVID-19, mRNA, LNP-s, PF, B ooster, [...] encounter Miscellaneous Notes * Telephone Encounter - Oriana Hernandez OSA - 12/30/2023 11:13 AM EDT I called to schedule emg appt, patient is not sure she wants to have testing done. Will call if shedecides to have it completed. documented in this encounter Plan of Treatment Upcoming Encounters Date Type Department Care Team (Late st Contact Info) Description 01/08/2024 1:00 PM EDT Office Visit Gastroenterology, [facility] [address] [facility] [place] [address] Rachael Tavarez CRNP [address] [place] [address] 02/02/2024 12:30 PM EST [facility] [address] [place] [address] Nika Guevara RN [address] [place] [address] 02/11/2024 10:30 AM EST Telemedicine [facility] [address] [place] [address] Oriana Isaacs PA-C [address] [place] [address] Edith Garcia, Community Health Forming Machine Adjuster [address] [place] [address] 06/07/2024 11:00 AM EDT Office Visit Cardiology [address] [place] [address] Angela Littlejohn CRNP [address] [place] [address] 06/21/2024 10:40 AM EDT Office Visit Family Practice [address] [address] Keagan Sanchez MD [address] [place] [address] 08/09/2024 10:00 AM EDT Office Visit Orthopaedics Andrez Alejandre [address] [place] [address] Sami Angelo DO [address] [place] [address] 10/07/2024 2:40 PM EDT Office Visit Dermatology [facility] [address] [place] [address] Alden Ann PA-C [address] [place] [address] 11/25/2024 11:00 AM EDT Office Visit Neurology [facility] [address] [facility] [place] [address] Kelly Waddell PA-C [address] [place] [address] Scheduled Procedures Name Priority Associated Diagnoses Date/Ti [...] 12/09/2011, Additional history exists Mammogram 04/24/2024 04/24/2023, 02/0 03/2023, 04/24/2023, Additional history exists HbA1c 07/16/2024 07/17/2023, 01/23, 09/20/2020, Additional history exists TSH 12/23/2024 12/24/2023, 06/23, 10/30/2022, Additional history exists GFR 12/25/2024 12/26/2023, 04/2023, 12/22/2023, Additional history exists DTap/Tdap Vaccines (3 - Td or Tdap) 10/10/2026 10/10/2016, 10/26/2005 Albumin/Creatinine Ratio 12/21/2026 12/22/2023 Colonoscopy 04/18/2027 04/18/2022, 03/25, 08/10/2013, Additional history exists Colorectal Cancer Screening 04/18/2027 VITAMIN D LEVEL ONCE IN A LIFETIME-USE SMARTSET# 95394 Completed 01/28/2022, 02/21/2015, 12/30/2011 RETIRED - COLONOSCOPY-EVERY [...] this encounter Medical Devices Implanted Type Area Pipe And Test Supervisor Device Identifier Shelf Expiration Date Model / Serial / Lot Medtronic-05/27/2023 Implanted: (Quantity not on file) Neurostimulator MEDTRONIC : NEUROLOGIC PAIN 05/26/2049 [id number] / / [id number] Screw Jami Lacie 3 Ti Set - [id number] Implanted:Qt y: 6 on 03/10/2012 at OR [facility] Bilateral : Spine Lumbar LEVON : SPINE [id number] / / Screw Lacie Pa Ti 6.5x50mm - [id number] Implanted:Qt y: 4 on 03/10/2012 at OR [facility] Bilateral : Spine Lumbar LEVON : SPINE [id number] / / Levon Xia3 7.0 X 40mm Screws Implanted:Qt y: 2 on 03/10/2012 at OR [facility] Bilateral : Spine Lumbar [id number] / / Shaun Lacie 3 Ti 6x70mm - [id number] Implanted:Qt y: 1 on 03/10/2012 at OR [facility] N/A: Spine Lumbar LEVON : SPINE [id number] / / Shaun Lacie 3 Ti Max 6x80mm - [id number] Implanted:Qt y: 1 on 03/10/2012 at OR [facility] N/A: Spine Lumbar LEVON : SPINE [id number] / / 9 X 25 X 4 - 8 Avs Wedge Nose Cage Implanted:Qt y: 1 on 03/10/2012 at OR [facility] N/A: Spine Lumbar [id number] / / Stent Synergy Xd Mr 2.02n74nw - [id number] Implanted:Qt y: 1 on 09/20/2020 at [facility] Neonode [id number] 04/18/2022 [id number] / / [id number] Stent Synergy Xd Mr 2.83g50gb - [id number] Implanted:Qt y: 1 on 09/20/2020 at [facility] Neonode [id number] 04/25/2022 [id number] 2220 / / [id number] Screw Locking 4.5mm 15mm - [id number] Implanted:Qt y: 1 on 07/11/2022 by Sami Angelo DO at OR [facility] Right: Shoulder [employer] 11/22/2025 108-4515 / / [id number] Bseplate Jasmeet Cmntlss W Scrw - [id number] Implanted:Qt y: 1 on 07/11/2022 by Sami Angelo DO at OR [facility] Right: Shoulder [employer] 03/24/2027 105-0029 / / [id number] Glenosphere Rev Thee W Scrw - [id number] Implanted:Qt y: 1 on 07/11/2022 by Sami Angelo DO at OR [facility] Right: Shoulder [employer] 04/24/2027 105-3610 / / [id number] Screw Locking 4.5mm 15mm - [id number] Implanted:Qt y: 1 on 07/11/2022 by Sami Angelo DO at OR [facility] Right: Shoulder [employer] 03/24/2027 108-4515 / / [id number] Screw Locking 4.5mm 20mm - [id number] Implanted:Qt y: 1 on 07/11/2022 by Sami Angelo DO at OR [facility] Right: Shoulder [employer] 03/24/2027 108-4520 / / [id number] Humelock Ii Stem Ta6v Size 12 Cementless Implanted:Qt y: 1 on 07/11/2022 by Sami Angelo DO at OR [facility] Right: Shoulder [employer] 10/22/2026 311-0212 / / [id number] Cortical Screw Ta6v, 5mm, L. 24mm Implanted:Qt y: 1 on 07/11/2022 by Sami Angelo DO at OR [facility] Right: Shoulder [employer] 09/22/2023 107-4524 / / [id number] Humeral Cup 135/145 Degree, Standard, 36/+6 Implanted:Qt y: 1 on 07/11/2022 by Sami Angelo DO at OR [facility] Right: Shoulder 02/21/2025 313-0706 / / [id number] Screw Locking 4.5mm 20mm - [id number] Implanted:Qt y: 1 on 07/11/2022 by Sami Angelo DO at OR [facility] Right: Shoulder [employer] 03/24/2027 108-4520 [...] Pace Spouse Health Care Agent Care Teams Application Trainer Relationship Specialty Start Date End Date Keagan Sanchez MD [address] [place] [phone] PCP - General Family Medicine 10/07/23 documented as of this encounter
--- OUTSIDE RECORDS SUMMARY | 2024-03-06 12:29 | External Medical Summary | Summary of Care ---
Author Name Unknown Organization [facility] Address [address] [place] [address] Phone [phone] Care Team Providers Care Trailer Technician Name Role Phone Keagan Sanchez MD Primary Care Provider Encounter Details Date Type Department Care Team (Late st Contact Info) Description 12/29/2023 12:30 PM EDT [facility] [place] [facility] [address] [place] [address] Nika Guevara RN [address] [place] [address] Allergies Active Allergy Reactions Criticality Noted Date Comments Adhesive Tape 03/31/2023 Other Reaction(s): Tape- redness, paper tape/coban "ok", [id number] TAPE OK OR COBAN Clarithromycin High 03/31/2023 Other Reaction(s): Rash, diarrhea, RASH,DIARRHEA Duloxetine Hcl Flushing,Nausea/vomi tin g High 10/20/2019 Erythromycin Base Rash 03/14/2004 Orlistat Low 03/31/2023 Other Reaction(s): GI UPSET Penicillins Rash 03/14/2004 Prednisone Other (Please comment) High 10/10/2023 pancreatitis Sulfa Antibiotics Rash 03/14/2004 documented as of this encounter (statuses as of 12/29/2023) Medications Medication Sig Dispensed Refills Start Date [...] Oral Tablet (Zetia)Indications :Coronary artery disease involving [place] coronary artery of [place] heart with unstable angina pectoris (HCC) TAKE [...] or after 12/30/2023 240 Tablet 12/22/2023 Active Cephalexin 500 MG Oral Capsule (Keflex) Take 1 Capsule by mouth in the morning and 1 Capsule before bedtime. Do all this for 5 days. 10 Capsule 12/24/2023 12/29/2023 Active Gabapentin 600 MG Oral Tablet (Neurontin)Indicat ions:DDD (degenerative disc disease), cervical,Postlamin ectomy syndrome, lumbar Take 2 tabs in morning, 2 tabs at lunch and 2 tabs at night 180 Tablet 5 12/25/2023 Active documented as of this encounter (statuses as of 12/29/2023) Active Problems Problem Noted Date Diagnosed Date [...] hypothyroidism 04/12/2021 Coronary artery disease invo lving [place] coronary artery of [place] heart without angina pectoris 09/27/2020 Last Assessment & Plan: Has 3 stents (2 in LAD one in diagonal), placed at [facility] [place] [address] Womack Followed by [facility] cardiology, Angela Littlejohn, next appt [...] as of this encounter (statuses as of 12/29/2023) Resolved Problems Problem Noted Date Diagnosed Date [...] as of this encounter (statuses as of 12/29/2023) Immunizations Name Administration Dates Next Due COVID-19 mRNA, LNP-s, No Pre serve, 2-Dose Series (Moderna) 01/17/2021,05/23/2020,04/17/2020 COVID-19, MRNA-LNP, 24-25, P R, 30MCG/0.3ML, IM, 12YRS AND ABOVE ([facility]) 12/11/2023 COVID-19, mRNA, LNP-s, PF, B [...] as of this encounter Progress Notes * Nika Guevara RN - 12/29/2023 1:40 PM EDT Current Concerns: Shalini is a 63 yo female being seen in her home for routine [facility] visit. Pt sitting at table. No distress today Reports last abx dose is this evening. Reports yesterday she was standing on bed cleaning ceiling fan & her legs gave out & she fell. She fell onto her right side. She is mobile today & wearing back brace. She has chronic neck & back pain. She has a neuorstimulator in her lower back. She has ROM in her extremities. Sent TT to Oriana Isaacs PA-C; pt sees neurospine tomorrow ok to see what they say Physical Exam: Physical Exam Constitutional: General: She is awake. Appearance: Normal appearance. HENT: Mouth/Throat: Mouth: Mucous membranes are moist. Neck: Vascular: No hepatojugular reflux or JVD. Cardiovascular: Rate and Rhythm: Normal rate. Pulmonary: Effort: Pulmonary effort is normal. Breath sounds: Normal breath sounds. Comments: unlabored Abdominal: General: Bowel sounds are normal. Palpations: Abdomen is soft. Musculoskeletal: General: Tenderness (lower back, neck & right arm pain) present. Normal range of motion. Cervical back: Full [...] pancreatitis & gastritis. LBM yesterday Takes miralax Drinks prune juice Genitourinary: Urinating without issues Musculoskeletal: Positive for arthralgias, back pain (Complained pain back & radiated around toher groin & down her leg. reports this has been going on since eusebio - she thinks it happened when she lifted a basket of tomatoes. she reports she was told before September her discs are bad.) and neck pain. Wearing back brace today Taking tramadol every 4 hours. Neuro stimulator implanted in right back above hip follows up with pain management Dr. Esteves & Dr. Daly [facility]. F/u with neurospine Skin: Negative. Neurological: Positive for headaches. Care Plan Goal Progress: Patient will remain free of falls. (Progressing) Start: 12/29/23 Expected End: 03/30/24 Orders Placed: No orders of the defined types were placed in this encounter. Medications Given: Care Gaps: Care Gaps Care gaps closed this contact:: Education;Medications;Plan of Care (POC) (12/29/23 1358) Type of education: Clinical/disease (12/29/23 1358) Type of plan of care (POC) care gap: Creation of plan of care (POC) and/or Integrated Care Plan (ICP) (12/29/23 1358) documented in this encounter Plan of Treatment Upcoming Encounters Date Type Department Care Team (Late st Contact Info) Description 12/30/2023 10:00 AM EDT Office Visit Neurosurgery, [place] [address] [place] [address] Niranjan Brown MD [address] [place] [address] 01/08/2024 1:00 PM EDT Office Visit Gastroenterology, [facility] [address] [place] [address] Rachael Tavarez CRNP [address] [place] [address] 02/02/2024 12:30 PM EST Home Visit [facility] [place] [address] [place] [address] Nika Guevara RN [address] [place] [address] 02/11/2024 10:30 AM EST Telemedicine [facility] [address] [place] [address] Oriana Isaacs PA-C [address] [place] [address] Edith Garcia, Community Health Employment Service Specialist [address] [place] [address] 06/07/2024 11:00 AM EDT Office Visit Cardiology [facility] [address] [facility] [address] [place] [address] Angela Littlejohn CRNP [address] [place] [address] 06/21/2024 10:40 AM EDT Office Visit Family Practice [facility] [address] [place] [address] Keagan Sanchez MD [address] [place] [address] 08/09/2024 10:00 AM EDT Office Visit Orthopaedics [facility] [address] [place] [address] Sami Angelo DO [address] [place] [address] 10/07/2024 2:40 PM EDT Office Visit Dermatology [facility] [address] [place] [address] Alden Ann PA-C [address] [place] [address] 11/25/2024 11:00 AM EDT Office Visit Neurology [facility] [place] [address] [place] [address] Kelly Waddell PA-C [address] [place] [address] Scheduled Procedures Name Priority Associated Diagnoses Date/Ti [...] D LEVEL ONCE IN A LIFETIME-USE SMARTSET# [id number] Completed 01/28/2022, 02/21/2015, 12/30/2011 RETIRED - COLONOSCOPY-EVERY [...] this encounter Medical Devices Implanted Type Area Nicker And Breaker Device Identifier Shelf Expiration Date Model / Serial / Lot Medtronic-05/27/2023 Implanted: (Quantity not on file) Neurostimulator MEDTRONIC : NEUROLOGIC PAIN 05/26/2049 [id number] / / [id number] Screw Jami Lacie 3 Ti Set - [id number] Implanted:Qt y: 6 on 03/10/2012 at OR [facility] Bilateral : Spine Lumbar LEVON : SPINE [id number] / / Screw Lacie Pa Ti 6.5x50mm - [id number] Implanted:Qt y: 4 on 03/10/2012 at OR [facility] Bilateral : Spine Lumbar LEVON : SPINE [id number] / / [place] Xia3 7.0 X 40mm Screws Implanted:Qt y: 2 on 03/10/2012 at OR [facility] Bilateral : Spine Lumbar [id number] / / Shaun Lacie 3 Ti 6x70mm - [id number] Implanted:Qt y: 1 on 03/10/2012 at OR [facility] N/A: Spine Lumbar LEVON : SPINE [id number] / / Shaun Lacie 3 Ti Max 6x80mm - [id number] Implanted:Qt y: 1 on 03/10/2012 at OR [facility] N/A: Spine Lumbar LEVON : SPINE [id number] / / 9 X 25 X 4 - 8 Avs Wedge Nose Cage Implanted:Qt y: 1 on 03/10/2012 at OR [facility] N/A: Spine Lumbar [id number] / / Stent Synergy Xd Mr 2.87t64sh - [id number] Implanted:Qt y: 1 on 09/20/2020 at [facility] SourceDNA [id number] 04/18/2022 [id number] / / [id number] Stent Synergy Xd Mr 2.95y50yz - [id number] Implanted:Qt y: 1 on 09/20/2020 at [facility] Source[employer] [id number] 04/25/2022 [id number] 2220 / / [id number] Screw Locking 4.5mm 15mm - [id number] Implanted:Qt y: 1 on 07/11/2022 by Sami Angelo DO at OR [facility] Right: Shoulder [employer] 11/22/2025 108-4515 / / [id number] Bseplate Jasmeet Cmntlss W Scrw - [id number] Implanted:Qt y: 1 on 07/11/2022 by Sami Angelo DO at OR [facility] Right: Shoulder [employer] 03/24/2027 105-0029 / / [id number] Glenosphere Rev Thee W Scrw - [id number] Implanted:Qt y: 1 on 07/11/2022 by Sami Angelo DO OR [facility] Right: Shoulder [employer] 04/24/2027 105-3610 / / [id number] Screw Locking 4.5mm 15mm - [id number] Implanted:Qt y: 1 on 07/11/2022 by Sami Angelo DO at OR [facility] Right: Shoulder [employer] 03/24/2027 108-4515 / / [id number] Screw Locking 4.5mm 20mm - [id number] Implanted:Qt y: 1 on 07/11/2022 by Sami Angelo DO at OR [facility] Right: Shoulder [employer] 03/24/2027 108-4520 / / [id number] Humelock Ii Stem Ta6v Size 12 Cementless Implanted:Qt y: 1 on 07/11/2022 by Sami Angelo DO at OR [facility] Right: Shoulder [employer] 10/22/2026 311-0212 / / [id number] Cortical Screw Ta6v, 5mm, L. 24mm Implanted:Qt y: 1 on 07/11/2022 by Sami Angelo, DO at OR [facility] Right: Shoulder [employer] 09/22/2023 107-4524 / / [id number] Humeral Cup 135/145 Degree, Standard, 36/+6 Implanted:Qt y: 1 on 07/11/2022 by Sami Angelo, DO at OR [facility] Right: Shoulder 02/21/2025 313-0706 / / [id number] Screw Locking 4.5mm 20mm - [id number] Implanted:Qt y: 1 on 07/11/2022 by Sami Angelo, DO at OR [facility] Right: Shoulder [employer] [...] patient have Health Care Power of Attor tñoito? No * Full Code Date Activated Date Inactivated Comments 09/19/2020 9:11 PM 09/21/2020 4:20 PM This order re flects the patients wishes and were consensually agreed upon. Question Answer Comments Discussion of Advance Directives occurred with: Patient Healthcare Agents on File Name Relationship Healthcare Agent [facility] p Communication Donny Pace Spouse Health Care Agent Care Teams Trailer Technician Relationship Specialty Start Date End Date Keagan Sanchez MD [address] [place] [address] PCP - General Family Medicine 10/07/23 documented as of this encounter
--- OUTSIDE RECORDS SUMMARY | 2024-03-06 12:29 | External Medical Summary | Summary of Care ---
Author Name Unknown Organization [facility] Address [address] [place] [address] Phone [phone] Care Team Providers Care Yard Assistant Name Role Phone Keagan Sanchez MD Primary Care Provider [phone] Reason for Visit * Reason Comments Medication Refill Encounter Details Date Type Department Care Team ([facility] Contact Info) Description 12/28/[address] [address] Keagan Sanchez MD [address] [place] [address] Allergies Active Allergy Reactions Criticality Noted Date Comments Adhesive Tape 03/31/2023 Other Reaction(s): Tape- redness, paper tape/coban "ok", [id number] TAPE OK OR COBAN Clarithromycin High 03/31/2023 [...] Oral Tablet (Zetia)Indications :Coronary artery disease involving tejon coronary artery of tejon heart with unstable angina pectoris (HCC) TAKE [...] before bedtime. 90 Tablet 2 12/19/2023 Active Diclofenac Sodium 50 MG Oral Tablet [...] hypothyroidism 04/12/2021 Coronary artery disease invo lving tejon coronary artery of tejon heart without angina pectoris 09/27/2020 Last Assessment & Plan: Has 3 stents (2 in LAD one in diagonal), placed at [facility] [place] [address] Womack Followed by [facility] cardiology, Angela Littlejohn, next appt May 2024 [...] as of this encounter Miscellaneous Notes * Addendum Note - Earnestine Barney CPhT - 12/29/2023 8:45 AM EDTAddended by: EARNESTINE BARNEY on: 12/29/2023 08:45 AM Modules accepted: Orders * Telephone Encounter - Earnestine Barney CPhT - 12/29/2023 8:45 AM EDT Did you pend patient's preferred pharmacy and medication before forwarding?yes Pharmacy: [facility] Pending Prescriptions: Disp Refills Baclofen [...] Description 12/29/2023 12:30 PM EDT [facility] Visit [facility] [address] [place] [address] Nika Guevara RN [address] [place] [address] 12/30/2023 10:00 AM EDT Office Visit Neurosurgery, [facility] [address] [place] [address] Niranjan Brown MD [address] [place] [address] 01/08/2024 1:00 PM EDT Office Visit Gastroenterology, [facility] 132 [place] [address] Rachael Tavarez CRNP 132 [facility] [address] 02/11/2024 10:30 AM EST Telemedicine [facility] [address] [place] [address] Oriana Isaacs PA-C [address] [place] [address] Edith Garcia, Community Health Electric Range Assembler [address] [place] [address] 06/07/2024 11:00 AM EDT Office Visit Cardiology [address] [place] [address] Angela Littlejohn CRNP [address] [place] [address] 06/21/2024 10:40 AM EDT Office Visit Family Practice [facility] [address] [place] [address] Keagan Sanchez MD [address] [place] [address] 08/09/2024 10:00 AM EDT Office [facility] [address] Sami Angelo DO 16 [place] [address] 10/07/2024 2:40 PM EDT Office Visit Dermatology [facility] [address] [place] [address] Alden Ann PA-C [address] [place] [address] 11/25/2024 11:00 AM EDT Office Visit Neurology [facility] [address] [facility] [place] [address] Kelly Waddell PA-C [address] [place] [address] Scheduled Procedures Name Priority Associated Diagnoses Date/Ti [...] D LEVEL ONCE IN A LIFETIME-USE SMARTSET# 57713 Completed 01/28/2022, 02/21/2015, 12/30/2011 RETIRED - COLONOSCOPY-EVERY [...] this encounter Medical Devices Implanted Type Area Reheater Helper Device Identifier Shelf Expiration Date Model / Serial / Lot Medtronic-05/27/2023 Implanted: (Quantity not on file) Neurostimulator MEDTRONIC : NEUROLOGIC PAIN 05/26/2049 [id number] / / [id number] Screw Jami Lacie 3 Ti Set - [id number] Implanted:Qt y: 6 on 03/10/2012 at [place] [facility] Bilateral : Spine Lumbar LEVON : SPINE [id number] / / Screw Lacie Pa Ti 6.5x50mm - [id number] Implanted:Qt y: 4 on 03/10/2012 at OR [facility] Bilateral : Spine Lumbar LEVON : SPINE [id number] / / Levon Xia3 7.0 X 40mm Screws Implanted:Qt y: 2 on 03/10/2012 at [facility] Bilateral : Spine Lumbar [id number] / / Shaun Lacie 3 Ti 6x70mm - [id number] Implanted:Qt y: 1 on 03/10/2012 at OR [facility] N/A: Spine Lumbar LEVON : SPINE [id number] / / Shaun Lacie 3 Ti Max 6x80mm - [id number] Implanted:Qt y: 1 on 03/10/2012 at OR [facility] N/A: Spine Lumbar LEVON : SPINE [id number] / / 9 X 25 X 4 - 8 Avs Wedge Nose Cage Implanted:Qt y: 1 on 03/10/2012 at OR [facility] N/A: Spine Lumbar [id number] / / Stent Synergy Xd Mr 2.89j26yd - [id number] Implanted:Qt y: 1 on 09/20/2020 at [facility] [employer] [id number] 04/18/2022 [id number] / / [id number] Stent Synergy Xd Mr 2.03g56gn - [id number] Implanted:Qt y: 1 on 09/20/2020 at [facility] [employer] [id number] 04/25/2022 [id number] 2220 / / [id number] Screw Locking 4.5mm 15mm - [id number] Implanted:Qt y: 1 on 07/11/2022 by Sami Angelo DO at OR [facility] Right: Shoulder [employer] 11/22/2025 108-4515 / / [id number] Bseplate Jasmeet Cmntlss W Scrw - [id number] Implanted:Qt y: 1 on 07/11/2022 by Sami Angelo DO at [facility] Right: Shoulder [employer] 03/24/2027 105-0029 / / [id number] Glenosphere Rev Thee W Scrw - [id number] Implanted:Qt y: 1 on 07/11/2022 by Sami Angelo DO at [facility] Right: Shoulder [employer] 04/24/2027 105-3610 / / [id number] Screw Locking 4.5mm 15mm - [id number] Implanted:Qt y: 1 on 07/11/2022 by Saim Angelo DO at OR [facility] Right: Shoulder [employer] 03/24/2027 108-4515 / / [id number] Screw Locking 4.5mm 20mm - [id number] Implanted:Qt y: 1 on 07/11/2022 by Sami Angelo DO at OR [facility] Right: Shoulder [employer] 03/24/2027 108-4520 / / [id number] Humelock Ii Stem Ta6v Size 12 Cementless Implanted:Qt y: 1 on 07/11/2022 by Sami Angelo DO at OR [facility] Right: Shoulder [employer] 10/22/2026 311-0212 / / [id number] Cortical Screw Ta6v, 5mm, L. 24mm Implanted:Qt y: 1 on 07/11/2022 by Sami Angelo DO at OR [facility] Right: Shoulder [employer] 09/22/2023 107-4524 / / [id number] Humeral Cup 135/145 Degree, Standard, 36/+6 Implanted:Qt y: 1 on 07/11/2022 by Sami Angelo DO at OR [facility] Right: Shoulder 02/21/2025 313-0706 / / [id number] Screw Locking 4.5mm 20mm - [id number] Implanted:Qt y: 1 on 07/11/2022 by Sami Angelo DO at OR [facility] Right: Shoulder [employer] 03/24/2027 108-4520 [...] Pace Spouse Health Care Agent Care Teams Yard Assistant Relationship Specialty Start Date End Date Keagan Sanchez MD [address] [place] [address] PCP - General Family Medicine 10/07/23 documented as of this encounter
--- OUTSIDE RECORDS SUMMARY | 2024-03-06 12:29 | External Medical Summary ---
Author Name Unknown Address Unknown Organization K1G:[facility] - [address] [place] [id number] Laboratory Report Ordering Provider Test Date Status ALAN PAINTING 01/02/2024 09:53:24 Final Observation Date Value Abnormality Reference (Units ) Status BUN 01/02/2024 09:53:24 13 6-20 (mg/dL) Final Creatinine 01/02/2024 09:53:24 0.9 0.5-1.0 (mg/dL) Final Glomerular filtration rate/1.73 sq M.predicted [Volume Rate/Area] in Serum, Plasma or Blood by Creatinine-based formula (CKD-EPI) 01/02/2024 09:53:24 74 >=60 (mL/min) Final eGFR is calculated based on the CKD-EPI 2020 equation. Sodium 01/02/2024 09:53:24 130 Below low normal 135 -146 (mmol/L) Final Potassium 01/02/2024 09:53:24 4.3 3.5-5.1 (m mol/L) Final Cl 01/02/2024 09:53:24 96 Below low normal 98- 107 (mmol/L) Final CO2 01/02/2024 09:53:24 24 22-32 (mmo l/L) Final Anion gap 01/02/2024 09:53:24 10 7-15 (mmol /L) Final Glucose 01/02/2024 09:53:24 89 70-120 (mg /dL) Final Albumin 01/02/2024 09:53:24 4.2 3.8-5.0 (g /dL) Final AST (Aspartate aminotransferase) 01/02/2024 09:53:24 43 Above high normal 10-35 (U/L) Final Alk Phos 01/02/2024 09:53:24 62 35-130 (U/ L) Final Bilirubin, Total 01/02/2024 09:53:24 0.2 <=1 .2 (mg/dL) Final Calcium 01/02/2024 09:53:24 8.9 8.4-10.2 ( mg/dL) Final Protein 01/02/2024 09:53:24 6.8 6.0-8.3 (g /dL) Final ALT (Alanine aminotransferase) 01/02/2024 09:53:24 65 Above high normal 10-35 (U/L) Final Performing Location [facility] - [address] [place] [phone]
--- OUTSIDE RECORDS SUMMARY | 2024-03-06 12:29 | External Medical Summary | Summary of Care ---
Author Name Unknown Organization [facility] Address [address] [place] [address] Phone [phone] Care Team Providers Care Rope Cleaner Name Role Phone Keagan Sanchez MD Primary Care Provider [phone] Reason for Visit * Reason Comments Medication Refill Encounter Details Date Type Department Care Team (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 Womack Followed by [facility] cardiology, Angela Littlejohn, next appt [...] Miscellaneous Notes * Addendum Note - Earnestine Mckeon CPhT - 12/29/2023 8:45 AM EDTAddended by: EARNESTINE MCKEON on: 12/29/2023 08:45 AM Modules accepted: Orders * Telephone Encounter - Earnestine Mckeon CPhT - 12/29/2023 8:44 AM EDT Did you pend patient's preferred pharmacy and medication before forwarding?yes Pharmacy: [facility] Pending Prescriptions: Disp Refills [...] encounter * Telephone Encounter - Pati Roberts, business relations manager - 12/25/2023 12:03 PM EDT Did you [...] Description 12/29/2023 12:30 PM EDT Home Visit [facility], [facility] [address] [place] [address] Nika Guevara RN [address] [facility] [place] [address] 12/30/2023 10:00 AM EDT Office Visit Neurosurgery, [place] [address] [place] [address] Niranjan Brown MD [address] [place] [address] 01/08/2024 1:00 PM EDT Office Visit Gastroenterology, [facility] [address] [address] Rachael Tavarez CRNP [address] [place] [address] 02/11/2024 10:30 AM EST Telemedicine [facility] [address] [place] [address] Oriana Isaacs PA-C [address] [place] [address] Edith Garcia, Community Health Cigarette Packing Machine Operator [address] [place] [address] 06/07/2024 11:00 AM EDT Office Visit Cardiology [facility] [address] [facility] [address] [place] [address] Angela Littlejohn CRNP [address] [place] [address] 06/21/2024 10:40 AM EDT Office Visit Family Practice [facility] [address] [place] [address] Keagan Sanchez MD [address] [place] [address] 08/09/2024 10:00 AM EDT Office Visit Orthopaedics [facility] [address] [place] [phone] Sami Angelo DO 16 [place] [address] 10/07/2024 2:40 PM EDT Office Visit Dermatology [facility] [address] [place] [address] Alden Ann PA-C [address] [place], [place] [address] 11/25/2024 11:00 AM EDT Office Visit Neurology [facility] [place] 200 [place] [address] Kelly Waddell PA-C [address] [place] [address] Scheduled Procedures Name Priority Associated Diagnoses Date/Ti [...] D LEVEL ONCE IN A LIFETIME-USE SMARTSET# 94074 Completed 01/28/2022, 02/21/2015, 12/30/2011 RETIRED - COLONOSCOPY-EVERY [...] this encounter Medical Devices Implanted Type Area Physical Sciences Instructor Device Identifier Shelf Expiration Date Model / Serial / Lot Medtronic-05/27/2023 Implanted: (Quantity not on file) Neurostimulator MED[employer] : NEUROLOGIC PAIN 05/26/2049 [id number] / / [id number] Screw Jami Lacie 3 Ti Set - [id number] Implanted:Qt y: 6 on 03/10/2012 at [place] [facility] Bilateral : Spine Lumbar LEVON : SPINE [id number] / / Screw Lacie Pa Ti 6.5x50mm - [id number] Implanted:Qt y: 4 on 03/10/2012 at [place] [facility] Bilateral : Spine Lumbar LEVON : SPINE [id number] / / [place] Xia3 7.0 X 40mm Screws Implanted:Qt y: 2 on 03/10/2012 at [place] [facility] Bilateral : Spine Lumbar [id number] / / Shaun Lacie 3 Ti 6x70mm - [id number] Implanted:Qt y: 1 on 03/10/2012 at [place] [facility] N/A: Spine Lumbar LEVON : SPINE [id number] / / Shaun Lacie 3 Ti Max 6x80mm - [id number] Implanted:Qt y: 1 on 03/10/2012 at [place] [facility] N/A: Spine Lumbar LEVON : SPINE [id number] / / 9 X 25 X 4 - 8 Avs Wedge Nose Cage Implanted:Qt y: 1 on 03/10/2012 at [place] [facility] N/A: Spine Lumbar [id number] / / Stent Synergy Xd Mr 2.39e62am - [id number] Implanted:Qt y: 1 on 09/20/2020 at [facility] C-nario [id number] 04/18/2022 [id number] 6220 / / [id number] Stent Synergy Xd Mr 2.45g85ne - [id number] Implanted:Qt y: 1 on 09/20/2020 at [facility] C-nario [id number] 04/25/2022 [id number] 2220 / / [id number] Screw Locking 4.5mm 15mm - [id number] Implanted:Qt y: 1 on 07/11/2022 by Sami Angelo DO at [place] [facility] Right: Shoulder [employer] 11/22/2025 108-4515 / / [id number] Bseplate Jasmeet Cmntlss W Scrw - [id number] Implanted:Qt y: 1 on 07/11/2022 by Sami Angelo DO OR [facility] Right: Shoulder [employer] 03/24/2027 105-0029 / / [id number] Glenosphere Rev Thee W Scrw - [id number] Implanted:Qt y: 1 on 07/11/2022 by Sami Angelo DO OR [facility] Right: Shoulder [employer] 04/24/2027 105-3610 / / T1980 Screw Locking 4.5mm 15mm - [id number] Implanted:Qt y: 1 on 07/11/2022 by Sami Angelo DO OR [facility] Right: Shoulder [employer] 03/24/2027 108-4515 / / [id number] Screw Locking 4.5mm 20mm - [id number] Implanted:Qt y: 1 on 07/11/2022 by Sami Angelo DO OR [facility] Right: Shoulder [employer] 03/24/2027 108-4520 / / [id number] Humelock Ii Stem Ta6v Size 12 Cementless Implanted:Qt y: 1 on 07/11/2022 by Sami Angelo DO OR [facility] Right: Shoulder [employer] 10/22/2026 311-0212 / / [id number] Cortical Screw Ta6v, 5mm, L. 24mm Implanted:Qt y: 1 on 07/11/2022 by Sami Angelo DO at [place] [facility] Right: Shoulder [employer] 09/22/2023 107-4524 / / [id number] Humeral Cup 135/145 Degree, Standard, 36/+6 Implanted:Qt y: 1 on 07/11/2022 by Sami Angelo, DO at [place] [facility] Right: Shoulder 02/21/2025 313-0706 / / [id number] Screw Locking 4.5mm 20mm - [id number] Implanted:Qt y: 1 on 07/11/2022 by Sami Angelo DO at [place] [facility] Right: Shoulder [employer] [...] Pace Spouse Health Care Agent Care Teams Rope Cleaner Relationship Specialty Start Date End Date Keagan Sanchez MD [address] [place] [address] PCP - General Family Medicine 10/07/23 documented as of this encounter
--- OUTSIDE RECORDS SUMMARY | 2024-03-06 12:29 | External Medical Summary ---
Author Name Unknown Address Unknown Organization K1G:[facility] - [address] [place] [id number] Laboratory Report Ordering Provider Test Date Status ALAN PAINTING 01/02/2024 09:53:24 Final Observation Date Value Abnormality Reference (Units ) Status WBC, Total 01/02/2024 09:53:24 5.50 4.00-10.8 0 (K/uL) Final RBC 01/02/2024 09:53:24 3.94 3.85-5.15 (M/uL) Final Hemoglobin 01/02/2024 09:53:24 11.1 Below low normal 12 .0-15.3 (g/dL) Final HCT 01/02/2024 09:53:24 34.7 Below low normal 36. 0-45.2 (%) Final MCV 01/02/2024 09:53:24 88.1 81.5-97.5 (fL) Final MCH 01/02/2024 09:53:24 28.2 27.0-34.0 (pg) Final MCHC 01/02/2024 09:53:24 32.0 32.0-36.0 (g/dL) Final RDW 01/02/2024 09:53:24 15.8 11.5-15.5 (%) Final Platelets 01/02/2024 09:53:24 156 140-400 (K /uL) Final MPV 01/02/2024 09:53:24 9.4 6.6-11.1 ( fL) Final Performing Location [facility] - [address] [place] [phone]
--- OUTSIDE RECORDS SUMMARY | 2024-03-06 12:29 | External Medical Summary | Summary of Care ---
Author Name Unknown Organization [facility] Address [address] [facility] [place] [address] Phone [phone] Care Team Providers Care Curriculum Consultant Name Role Phone Keagan Sanchez MD Primary Care Provider [phone] Reason for Visit * Reason Onset Date Comments [facility]: Maintenance 01/02/2024 Encounter Details Date Type Department Care Team (Late st Contact Info) Description 01/02/2024 Telephone [facility] [address] [facility] [place] [address] Brenda Smith, [place] [address] [place] [facility] [place] [address] [facility]: Maintenance Allergies Active Allergy Reactions Criticality Noted Date Comments Adhesive Tape 03/31/2023 Other Reaction(s): Tape- redness, paper tape/coban "ok", [id number] TAPE OK OR COBAN Clarithromycin High 03/31/2023 [...] Oral Tablet (Zetia)Indications :Coronary artery disease involving crow coronary artery of crow heart with unstable angina pectoris (HCC) TAKE [...] hypothyroidism 04/12/2021 Coronary artery disease invo lving crow coronary artery of crow heart without angina pectoris 09/27/2020 Last Assessment & Plan: Has 3 stents (2 in LAD one in diagonal), placed at [facility] [place] [address] Womack Followed by [facility] cardiology, Angela Littlejohn, next appt May 2024 [...] encounter Miscellaneous Notes * Telephone Encounter - Brenda Smith RN - 01/02/2024 9:33 AM EDT TT alert for pt arrival to ED. No diagnosis or disposition at this time. F/u call scheduled. documented in this encounter Plan of Treatment Upcoming Encounters Date Type Department Care Team ([facility] st Contact Info) Description 01/03/2024 12:00 PM EDT Scheduled Telephone [facility], [facility] [address] [place] [address] [facility], Nurse [facility] [address] [place] [address] 01/08/2024 1:00 PM EDT Office Visit Gastroenterology, [facility] [address] [address] Rachael Tavarez CRNP [address] [place] [address] 02/02/2024 12:30 PM EST Home Visit [facility], [facility] [address] [place] [address] Nika Guevara RN [address] [address] 02/11/2024 10:30 AM EST Telemedicine [facility], [facility] [address] [place] [address] Oriana Isaacs PA-C [address] [place] [address] Edith Garcia, Community Health Nuclear Medicine Technologist [address] [place] [address] 06/07/2024 11:00 AM EDT Office Visit Cardiology [facility], [address] [place] [address] Angela Littlejohn CRNP [facility] [place] [address] 06/21/2024 10:40 AM EDT Office Visit Family Practice [facility] [address] [place] [address] Keagan Sanchez MD 68 [place] [address] 08/09/2024 10:00 AM EDT Office Visit Orthopaedics [facility] [place] 16 [place] [address] Sami Angelo DO 16 [place], [place] [address] 10/07/2024 2:40 PM EDT Office Visit Dermatology [facility] [address] [place] [address] Alden Ann PA-C [address] [place] [address] 11/25/2024 11:00 AM EDT Office Visit Neurology [facility] 200 [place] [address] Kelly Waddell PA-C 21 [place] [address] Scheduled Procedures Name Priority Associated Diagnoses Date/Ti [...] D LEVEL ONCE IN A LIFETIME-USE SMARTSET# 59730 Completed 01/28/2022, 02/21/2015, 12/30/2011 RETIRED - COLONOSCOPY-EVERY [...] this encounter Medical Devices Implanted Type Area Wood Piler Device Identifier Shelf Expiration Date Model / Serial / Lot Medtronic-05/27/2023 Implanted: (Quantity not on file) Neurostimulator MEDTRONIC : NEUROLOGIC PAIN 05/26/2049 [id number] / / [id number] Screw Jami Lacie 3 Ti Set - [id number] Implanted:Qt y: 6 on 03/10/2012 at [place] [facility] Bilateral : Spine Lumbar LEVON : SPINE [id number] / / Screw Lacie Pa Ti 6.5x50mm - [id number] Implanted:Qt y: 4 on 03/10/2012 at [facility] Bilateral : Spine Lumbar LEVON : SPINE [id number] / / Levon Xia3 7.0 X 40mm Screws Implanted:Qt y: 2 on 03/10/2012 at OR [facility] Bilateral : Spine Lumbar [id number] / / Shaun Lacie 3 Ti 6x70mm - [id number] Implanted:Qt y: 1 on 03/10/2012 at OR [facility] N/A: Spine Lumbar LEVON : SPINE [id number] / / Shaun Lacie 3 Ti Max 6x80mm - [id number] Implanted:Qt y: 1 on 03/10/2012 at OR [facility] N/A: Spine Lumbar LEVON : SPINE [id number] / / 9 X 25 X 4 - 8 Avs Wedge Nose Cage Implanted:Qt y: 1 on 03/10/2012 at OR [facility] N/A: Spine Lumbar [id number] / / Stent Synergy Xd Mr 2.87g11hl - [id number] Implanted:Qt y: 1 on 09/20/2020 at [facility] [employer] [id number] 04/18/2022 [id number] / / [id number] Stent Synergy Xd Mr 2.81p52gd - [id number] Implanted:Qt y: 1 on 09/20/2020 at [facility] [employer] [id number] 04/25/2022 [id number] 2220 / / [id number] Screw Locking 4.5mm 15mm - [id number] Implanted:Qt y: 1 on 07/11/2022 by Sami Angelo DO at OR [facility] Right: Shoulder [employer] 11/22/2025 108-4515 / / [id number] Bseplate Jasmeet Cmntlss W Scrw - [id number] Implanted:Qt y: 1 on 07/11/2022 by Sami Angelo DO at OR [facility] Right: Shoulder [employer] 03/24/2027 105-0029 / / [id number] Glenosphere Rev Thee W Scrw - [id number] Implanted:Qt y: 1 on 07/11/2022 by Sami Angelo DO at OR [facility] Right: Shoulder [employer] 04/24/2027 105-3610 / / [id number] Screw Locking 4.5mm 15mm - [id number] Implanted:Qt y: 1 on 07/11/2022 by Sami Angelo DO at OR [facility] Right: Shoulder [employer] 03/24/2027 108-4515 / / [id number] Screw Locking 4.5mm 20mm - [id number] Implanted:Qt y: 1 on 07/11/2022 by Sami Angelo DO at OR [facility] Right: Shoulder [employer] 03/24/2027 108-4520 / / [id number] Humelock Ii Stem Ta6v Size 12 Cementless Implanted:Qt y: 1 on 07/11/2022 by Sami Angelo DO at OR [facility] Right: Shoulder [employer] 10/22/2026 311-0212 / / [id number] Cortical Screw Ta6v, 5mm, L. 24mm Implanted:Qt y: 1 on 07/11/2022 by Sami Angelo DO at OR [facility] Right: Shoulder [employer] 09/22/2023 107-4524 / / [id number] Humeral Cup 135/145 Degree, Standard, 36/+6 Implanted:Qt y: 1 on 07/11/2022 by Sami Angelo DO at OR [facility] Right: Shoulder 02/21/2025 313-0706 / / [id number] Screw Locking 4.5mm 20mm - [id number] Implanted:Qt y: 1 on 07/11/2022 by Sami Angelo DO at OR [facility] Right: Shoulder [employer] 03/24/2027 108-4520 [...] File Name Relationship [facility] Communication Donny Pace Spouse Health Care Agent Care Teams Curriculum Consultant Relationship Specialty Start Date End Date Keagan Sanchez MD [address] [place] [address] PCP - General Family Medicine 10/07/23 documented as of this encounter
--- OUTSIDE RECORDS SUMMARY | 2024-03-06 12:30 | External Medical Summary | Summary of Care ---
Author Name Unknown Organization [facility] Address [address] [place] [address] Phone [phone] Care Team Providers Care Complaint Investigator Name Role Phone Keagan Sanchez MD Primary Care Provider [phone] Reason for Visit * Reason Comments Outpatient Testing Encounter Details Date Type Department Care Team ([facility] st Contact Info) Description 12/26/2023 10:10 AM EDT Laboratory [facility] [phone] [place], Lab [address] [address] Serum phosphate elevated; Elevated liver enzymes Allergies Active Allergy Reactions Criticality Noted Date Comments Adhesive Tape 03/31/2023 Other Reaction(s): Tape- redness, paper tape/coban "ok", [id number] TAPE OK OR COBAN Clarithromycin High 03/31/2023 Other Reaction(s): Rash, diarrhea, RASH,DIARRHEA Duloxetine Hcl Flushing,Nausea/vomi tin g High 10/20/2019 Erythromycin Base Rash 03/14/2004 Orlistat Low 03/31/2023 Other Reaction(s): GI UPSET Penicillins Rash 03/14/2004 Prednisone Other (Please comment) High 10/10/2023 pancreatitis Sulfa Antibiotics Rash 03/14/2004 documented as of this encounter (statuses as of 12/26/2023) Medications Medication Sig Dispensed Refills Start Date [...] Oral Tablet (Zetia)Indications :Coronary artery disease involving iqugmiut coronary artery of iqugmiut heart with unstable angina pectoris (HCC) TAKE [...] as of this encounter (statuses as of 12/26/2023) Active Problems Problem Noted Date Diagnosed Date [...] hypothyroidism 04/12/2021 Coronary artery disease invo lving iqugmiut coronary artery of iqugmiut heart without angina pectoris 09/27/2020 Last Assessment & Plan: Has 3 stents (2 in LAD one in diagonal), placed at [facility] [address] Womack Followed by [facility] cardiology, Angela Littlejohn, next [...] as of this encounter (statuses as of 12/26/2023) Resolved Problems Problem Noted Date Diagnosed Date [...] as of this encounter (statuses as of 12/26/2023) Immunizations Name Administration Dates Next Due COVID-19 [...] Description 12/29/2023 12:30 PM EDT Home Visit [facility], [place] [facility] [address] [place] [address] Nika Guevara RN [address] [place] [address] 12/30/2023 10:00 AM EDT Office Visit Neurosurgery, [place] [address] [place] [address] Niranjan Brown MD [address] [place] [address] 01/08/2024 1:00 PM EDT Office Visit Gastroenterology, [facility] [address] [facility] [place] [address] Rachael Tavarez CRNP 132 [place] [address] 02/11/2024 10:30 AM EST Telemedicine [facility], [facility] [address] [place] [address] Oriana Isaacs PA-C [address] [place] [address] Edith Garcia, Community Health Sociology Instructor [address] [place] [address] 06/07/2024 11:00 AM EDT Office Visit Cardiology [address] [place] [address] Angela Littlejohn CRNP [address] [place] [address] 06/21/2024 10:40 AM EDT Office Visit Family Practice [address] [address] Keagan Sanchez MD [address] [place] [address] 08/09/2024 10:00 AM EDT Office Visit Orthopaedics Andrez Alejandre 16 [facility] [place] [address] Sami Angelo DO 16 [place] [address] 10/07/2024 2:40 PM EDT Office Visit Dermatology [facility] 68 [place] [address] Alden Ann PA-C 68 [place] [address] 11/25/2024 11:00 AM EDT Office Visit Neurology [facility] 200 [place] [address] Kelly Waddell PA-C 21 [place] [address] Pending Results Name Type Priority Associated Diagnoses Date /Time RENAL FUNCTION PANEL Lab Routine Serum phosphate elevated 12/26/2023 10:01 AM EDT PTH Lab Routine Serum phosphate elevated 12/26/2023 10:01 AM EDT HEPATIC FUNCTION PANEL Lab Routine Elevated liver enzymes 12/26/2023 10:01 AM EDT Scheduled Procedures Name Priority Associated [...] 12/09/2011, Additional history exists Mammogram 04/24/2024 04/24/2023, 0203/2023, 04/24/2023, Additional history exists HbA1c 07/16/2024 07/17/2023, 01/23, 09/20/2020, Additional history exists GFR 12/23/2024 12/24/2023, 11/24, 11/21/2023, Additional history exists TSH 12/23/2024 12/24/2023, 06/23, 10/30/2022, Additional history exists DTap/Tdap Vaccines (3 - Td or Tdap) 10/10/2026 10/10/2016, 10/26/2005 Albumin/Creatinine Ratio 12/21/2026 12/22/2023 Colonoscopy 04/18/2027 04/18/2022, 03/25, 08/10/2013, Additional history exists Colorectal Cancer Screening 04/18/2027 VITAMIN D LEVEL ONCE IN A LIFETIME-USE SMARTSET# [id number] Completed 01/28/2022, 02/21/2015, 12/30/2011 RETIRED - COLONOSCOPY-EVERY [...] this encounter Medical Devices Implanted Type Area Department Operations Manager Device Identifier Shelf Expiration Date Model / Serial / Lot Medtronic-05/27/2023 Implanted: (Quantity not on file) Neurostimulator MED[employer] : NEUROLOGIC PAIN 05/26/2049 [id number] / / [id number] Screw Jami Lacie 3 Ti Set - [id number] Implanted:Qt y: 6 on 03/10/2012 at OR [facility] Bilateral : Spine Lumbar LEVON : SPINE [id number] / / Screw Lacie Pa Ti 6.5x50mm - [id number] Implanted:Qt y: 4 on 03/10/2012 at [facility] [address] [address] [address] Bilateral : Spine Lumbar LEVON : SPINE [id number] / / [place] Xia3 7.0 X 40mm Screws Implanted:Qt y: 2 on 03/10/2012 at [facility] [address] [address] [address] Bilateral : Spine Lumbar [id number] / / Shaun Lacie 3 Ti 6x70mm - [id number] Implanted:Qt y: 1 on 03/10/2012 at OR [facility] N/A: Spine Lumbar LEVON : SPINE [id number] / / Shaun Lacie 3 Ti Max 6x80mm - [id number] Implanted:Qt y: 1 on 03/10/2012 at OR [facility] N/A: Spine Lumbar LEVON : SPINE [id number] / / 9 X 25 X 4 - 8 Avs Wedge Nose Cage Implanted:Qt y: 1 on 03/10/2012 at OR [facility] N/A: Spine Lumbar [id number] / / Stent Synergy Xd Mr 2.80n43gu - [id number] Implanted:Qt y: 1 on 09/20/2020 at [facility] [employer]@ [id number] 04/18/2022 [id number] 6220 / / [id number] Stent Synergy Xd Mr 2.03i24ta - [id number] Implanted:Qt y: 1 on 09/20/2020 at [facility] [employer]@ [id number] 04/25/2022 [id number] 2220 / / [id number] Screw Locking 4.5mm 15mm - [id number] Implanted:Qt y: 1 on 07/11/2022 by Sami Angelo DO at OR [facility] Right: Shoulder [employer] 11/22/2025 108-4515 / / [id number] Bseplate Jasmeet Cmntlss W Scrw - [id number] Implanted:Qt y: 1 on 07/11/2022 by Sami Angelo DO at OR [facility] Right: Shoulder [employer] 03/24/2027 105-0029 / / [id number] Glenosphere Rev Thee W Scrw - [id number] Implanted:Qt y: 1 on 07/11/2022 by Sami Angelo DO at OR [facility] Right: Shoulder [employer] 04/24/2027 105-3610 / / T1980 Screw Locking 4.5mm 15mm - [id number] Implanted:Qt y: 1 on 07/11/2022 by Sami Angelo DO at OR [facility] Right: Shoulder [employer] 03/24/2027 108-4515 / / [id number] Screw Locking 4.5mm 20mm - [id number] Implanted:Qt y: 1 on 07/11/2022 by Sami Angelo DO at OR [facility] Right: Shoulder [employer] 03/24/2027 108-4520 / / [id number] Humelock Ii Stem Ta6v Size 12 Cementless Implanted:Qt y: 1 on 07/11/2022 by Sami Angelo DO at OR [facility] Right: Shoulder [employer] 10/22/2026 311-0212 / / [id number] Cortical Screw Ta6v, 5mm, L. 24mm Implanted:Qt y: 1 on 07/11/2022 by Sami Angelo DO at OR [facility] Right: Shoulder [employer] 09/22/2023 107-4524 / / [id number] Humeral Cup 135/145 Degree, Standard, 36/+6 Implanted:Qt y: 1 on 07/11/2022 by Sami Angelo DO at OR [facility] Right: Shoulder 02/21/2025 313-0706 / / [id number] Screw Locking 4.5mm 20mm - [id number] Implanted:Qt y: 1 on 07/11/2022 by Sami Angelo DO at OR [facility] Right: Shoulder [employer] 03/24/2027 108-4520 / / [id number] documented as of this encounter Visit Diagnoses Diagnosis Serum phosphate elevated Disorders of phosphorus metabolism Elevated liver enzymes Nonspecific elevation of levels of transaminase or lactic acid dehydrogenase (LDH) documented in this encounter Advance Directives * [...] Pace Spouse Health Care Agent Care Teams Complaint Investigator Relationship Specialty Start Date End Date Keagan Sanchez MD [address] [place] [address] PCP - General Family Medicine 10/07/23 documented as of this encounter
--- OUTSIDE RECORDS SUMMARY | 2024-03-06 12:30 | External Medical Summary | Summary of Care ---
Author Name Unknown Organization [facility] Address [address] [facility] [place] [address] Phone [phone] Care Team Providers Care Electronic Semiconductor Processor Name Role Phone Keagan Sanchez MD Primary Care Provider [phone] Encounter Details Date Type Department Care Team (Late st Contact Info) Description 12/26/2023 Orders Only PATIENT PORTAL DO NOT DELETE THIS DEPT USED BY LEIA DEE [id number] Allergies Active Allergy Reactions Criticality Noted Date Comments Adhesive Tape 03/31/2023 Other Reaction(s): Tape- redness, paper tape/coban "ok", [id number] TAPE OK OR COBAN Clarithromycin High 03/31/2023 [...] Oral Tablet (Zetia)Indications :Coronary artery disease involving [place] coronary artery of [place] heart with unstable angina pectoris (HCC) TAKE [...] hypothyroidism 04/12/2021 Coronary artery disease invo lving [place] coronary artery of [place] heart without angina pectoris 09/27/2020 Last Assessment [...] Care Team (Late st Contact Info) Description 12/26/2023 10:10 AM EDT Laboratory Laboratory Patient Service [place], [address] [address] [place], Lab Lock [address] [place] [address] 12/29/2023 12:30 PM EDT [facility] Visit [facility] [place] [facility] [address] [place] [address] Nika Guevara RN [address] [place] [address] 12/30/2023 10:00 AM EDT Office Visit Neurosurgery, [place] [address] [place] [address] Niranjan Brown MD [address] [place] [address] 01/08/2024 1:00 PM EDT Office Visit Gastroenterology, [facility] 132 [place] [address] Rachael Tavarez CRNP 132 [place] [address] 02/11/2024 10:30 AM EST Telemedicine [facility], [facility] [address] [place] [address] Oriana Isaacs PA-C [address] [place] [address] Edith Garcia, Community Health Manager In Home [address] [place] [address] 06/07/2024 11:00 AM EDT Office Visit Cardiology [address] [place] [address] Angela Littlejohn CRNP [address] [place], [place] [address] 06/21/2024 10:40 AM EDT Office Visit Family Practice [facility] 68 [place] [address] Keagan Sanchez MD [address] [place] [address] 08/09/2024 10:00 AM EDT Office Visit Orthopaedics Andrez Alejandre 16 [place] [address] JuanSami alcantar DO 16 [place] [address] 10/07/2024 2:40 PM EDT Office Visit Dermatology [facility] 68 [place] [address] Alden Ann PA-C 68 [place] [address] 11/25/2024 11:00 AM EDT Office Visit Neurology [facility] 200 [place] [address] Kelly Waddell PA-C [facility] [place] [address] Scheduled Procedures Name Priority Associated Diagnoses Date/Ti [...] D LEVEL ONCE IN A LIFETIME-USE SMARTSET# 49003 Completed 01/28/2022, 02/21/2015, 12/30/2011 RETIRED - COLONOSCOPY-EVERY [...] this encounter Medical Devices Implanted Type Area Wholesaler Device Identifier Shelf Expiration Date Model / Serial / Lot Medtronic-05/27/2023 Implanted: (Quantity not on file) Neurostimulator MEDTR[employer] : NEUROLOGIC PAIN 05/26/2049 00654 / / [id number] Screw Jami Lacie 3 Ti Set - [id number] Implanted:Qt y: 6 on 03/10/2012 at OR [facility] Bilateral : Spine Lumbar LEVON : SPINE [id number] / / Screw Lacie Pa Ti 6.5x50mm - [id number] Implanted:Qt y: 4 on 03/10/2012 at OR [facility] Bilateral : Spine Lumbar LEVON : SPINE [id number] / / Levon Xia3 7.0 X 40mm Screws Implanted:Qt y: 2 on 03/10/2012 at [facility] Bilateral : Spine Lumbar [id number] / / Shaun Lacie 3 Ti 6x70mm - [id number] Implanted:Qt y: 1 on 03/10/2012 at OR [facility] N/A: Spine Lumbar LEVON : SPINE [id number] / / Shaun Lacie 3 Ti Max 6x80mm - [id number] Implanted:Qt y: 1 on 03/10/2012 at OR [facility] N/A: Spine Lumbar LEVON : SPINE [id number] / / 9 X 25 X 4 - 8 Avs Wedge Nose Cage Implanted:Qt y: 1 on 03/10/2012 at OR [facility] N/A: Spine Lumbar [id number] / / Stent Synergy Xd Mr 2.17o28kt - [id number] Implanted:Qt y: 1 on 09/20/2020 at [facility] [employer] [id number] 04/18/2022 [id number] 6220 / / [id number] Stent Synergy Xd Mr 2.79g48ek - [id number] Implanted:Qt y: 1 on 09/20/2020 at [facility] [employer] [id number] 04/25/2022 [id number] 2220 / / [id number] Screw Locking 4.5mm 15mm - [id number] Implanted:Qt y: 1 on 07/11/2022 by Sami Angelo DO at OR [facility] Right: Shoulder [employer] 11/22/2025 108-4515 / / [id number] Bseplate Jasmeet Cmntlss W Scrw - [id number] Implanted:Qt y: 1 on 07/11/2022 by Sami Angelo DO at [facility] Right: Shoulder [employer] 03/24/2027 105-0029 / / [id number] Glenosphere Rev Thee W Scrw - [id number] Implanted:Qt y: 1 on 07/11/2022 by Sami Angelo DO at [facility] Right: Shoulder [employer] 04/24/2027 105-3610 / / T1980 Screw Locking 4.5mm 15mm - [id number] Implanted:Qt y: 1 on 07/11/2022 by Sami Angelo DO at OR [facility] Right: Shoulder [employer] 03/24/2027 108-4515 / / [id number] Screw Locking 4.5mm 20mm - [id number] Implanted:Qt y: 1 on 07/11/2022 by Sami [...] / [id number] Screw Locking 4.5mm 20mm - [id number] Implanted:Qt y: 1 on 07/11/2022 by Sami [...] Agents on File Name Relationship Healthcare Agent [facility] p Communication Donny Pace Spouse Health Care Agent Care Teams Electronic Semiconductor Processor Relationship Specialty Start Date End Date Keagan Sanchez MD [address] [place] [address] PCP - General Family Medicine 10/07/23 documented as of this encounter
--- OUTSIDE RECORDS SUMMARY | 2024-03-06 12:30 | External Medical Summary | Summary of Care ---
Author Name Unknown Organization [facility] Address [address] [place] [address] Phone [phone] Care Team Providers Care Mortgage Loan Assistant Name Role Phone Keagan Sanchez MD Primary Care Provider [phone] Reason for Visit * Reason Comments Medication Refill Encounter Details Date Type Department Care Team ([facility] Contact Info) Description 12/24/[address] [address] Keagan Sanchez MD [address] [place] [address] Allergies Active Allergy Reactions Criticality Noted Date Comments Adhesive Tape 03/31/2023 Other Reaction(s): Tape- redness, paper tape/coban "ok", FTXB-STIITHG-XEOCN TAPE OK OR COBAN Clarithromycin High 03/31/2023 [...] Oral Tablet (Zetia)Indications :Coronary artery disease involving kake coronary artery of kake heart with unstable angina pectoris (HCC) TAKE [...] hypothyroidism 04/12/2021 Coronary artery disease invo lving kake coronary artery of kake heart without angina pectoris 09/27/2020 Last Assessment & Plan: Has 3 stents (2 in LAD one in diagonal), [place] [facility] [place] [address] Womack Followed by [facility] cardiology, Angela Littlejohn, next appt May 2024 [...] preferred pharmacy and medication before forwarding?yes [facility] Pending Prescriptions: Disp Refills [...] encounter * Telephone Encounter - Pati Roberts, furnace setter - 12/25/2023 12:03 PM EDT Did you [...] Description 12/29/2023 12:30 PM EDT Home Visit [facility], [facility] [address] [place] [address] Nika Guevara RN [address] [facility] [place] [address] 12/30/2023 10:00 AM EDT Office Visit Neurosurgery, [place] [address] [place] [address] Niranjan Brown MD [address] [place] [address] 01/08/2024 1:00 PM EDT Office Visit Gastroenterology, [facility] [address] [address] Rachael Tavarez CRNP [address] [place] [address] 02/11/2024 10:30 AM EST Telemedicine [facility] [address] [place] [address] Oriana Isaacs PA-C [address] [place] [address] Edith Garcia, Community Health Vrt Mechanic [address] [place] [address] 06/07/2024 11:00 AM EDT Office Visit Cardiology [facility] [address] [facility] [address] [place] [address] Angela Littlejohn CRNP [address] [place] [address] 06/21/2024 10:40 AM EDT Office Visit Family Practice [facility] [address] [place] [address] Keagan Sanchez MD [address] [place] [address] 08/09/2024 10:00 AM EDT Office Visit Orthopaedics [facility] [address] [place] [phone] Sami Angelo DO 16 [place] [address] 10/07/2024 2:40 PM EDT Office Visit Dermatology [facility] 68 [place] [address] lAden Ann PA-C [address] [place], [place] [id number] 11/25/2024 11:00 AM EDT Office Visit Neurology [facility] Katherine Guilford [address] [place] [address] Kelly Waddell PA-C [address] [place] [address] Scheduled Procedures Name Priority Associated Diagnoses Date/Ti [...] D LEVEL ONCE IN A LIFETIME-USE SMARTSET# 48315 Completed 01/28/2022, 02/21/2015, 12/30/2011 RETIRED - COLONOSCOPY-EVERY [...] this encounter Medical Devices Implanted Type Area Admissions Specialist Device Identifier Shelf Expiration Date Model / Serial / Lot Medtronic-05/27/2023 Implanted: (Quantity not on file) Neurostimulator MEDTRONIC : NEUROLOGIC PAIN 05/26/2049 [id number] / / [id number] Screw Jami Lacie 3 Ti Set - [id number] Implanted:Qt y: 6 on 03/10/2012 at [place] [facility] Bilateral : Spine Lumbar LEVON : SPINE [id number] / / Screw Lacie Pa Ti 6.5x50mm - [id number] Implanted:Qt y: 4 on 03/10/2012 at [place] [facility] Bilateral : Spine Lumbar LEVON : SPINE [id number] / / [place] Xia3 7.0 X 40mm Screws Implanted:Qt y: 2 on 03/10/2012 at [place] [facility] Bilateral : Spine Lumbar [id number] / / Shaun Lacie 3 Ti 6x70mm - [id number] Implanted:Qt y: 1 on 03/10/2012 at [place] [facility] N/A: Spine Lumbar LEVON : SPINE [id number] / / Shaun Lacie 3 Ti Max 6x80mm - [id number] Implanted:Qt y: 1 on 03/10/2012 at [place] [facility] N/A: Spine Lumbar LEVON : SPINE [id number] / / 9 X 25 X 4 - 8 Avs Wedge Nose Cage Implanted:Qt y: 1 on 03/10/2012 at [place] [facility] N/A: Spine Lumbar [id number] / / Stent Synergy Xd Mr 2.42k11zu - [id number] Implanted:Qt y: 1 on 09/20/2020 at [facility] [email or web address] [id number] 04/18/2022 [id number] 6220 / / [id number] Stent Synergy Xd Mr 2.81c48ww - [id number] Implanted:Qt y: 1 on 09/20/2020 at [facility] [email or web address] [id number] 04/25/2022 [id number] 2220 / / [id number] Screw Locking 4.5mm 15mm - [id number] Implanted:Qt y: 1 on 07/11/2022 by Sami Angelo DO at [place] [facility] Right: Shoulder [employer] 11/22/2025 108-4515 / / [id number] Bseplate Jasmeet Cmntlss W Scrw - [id number] Implanted:Qt y: 1 on 07/11/2022 by Sami Angelo DO OR [facility] Right: Shoulder [employer] 03/24/2027 105-0029 / / [id number] Glenosphere Rev Thee W Scrw - [id number] Implanted:Qt y: 1 on 07/11/2022 by Sami Angelo DO OR [facility] Right: Shoulder [employer] 04/24/2027 105-3610 / / [id number] Screw Locking 4.5mm 15mm - [id number] Implanted:Qt y: 1 on 07/11/2022 by Sami Angelo DO OR [facility] Right: Shoulder [employer] 03/24/2027 108-4515 / / [id number] Screw Locking 4.5mm 20mm - [id number] Implanted:Qt y: 1 on 07/11/2022 by Sami Angelo DO OR [facility] Right: Shoulder [employer] 03/24/2027 [id number] / / [id number] [place] Ii Stem Ta6v Size 12 Cementless Implanted:Qt y: 1 on 07/11/2022 by Sami Angelo DO [facility] Right: Shoulder [employer] 10/22/2026 [id number] / / [id number] Cortical Screw Ta6v, 5mm, L. 24mm Implanted:Qt y: 1 on 07/11/2022 by Sami Angelo DO at [place] [facility] Right: Shoulder [employer] 09/22/2023 [id number] / / [id number] Humeral Cup 135/145 Degree, Standard, 36/+6 Implanted:Qt y: 1 on 07/11/2022 by Sami Angelo, DO at [place] [facility] Right: Shoulder 02/21/2025 [id number] / / [id number] Screw Locking 4.5mm 20mm - [id number] Implanted:Qt y: 1 on 07/11/2022 by Sami Angelo DO at [place] [facility] Right: Shoulder [employer] 03/24/2027 108-4520 [...] Pace Spouse Health Care Agent Care Teams Mortgage Loan Assistant Relationship Specialty Start Date End Date Keagan Sanchez MD [address] [place] [address] PCP - General Family Medicine 10/07/23 documented as of this encounter
--- OUTSIDE RECORDS SUMMARY | 2024-03-06 12:30 | External Medical Summary | Summary of Care ---
Author Name Unknown Organization [facility] Address [address] [place] [address] Phone [phone] Care Team Providers Care Ict Sales Representative Name Role Phone Keagan Sanchez MD Primary Care Provider [phone] Reason for Referral * Evaluate & Treat - Unlimited Visits (Within 10 days (routine)) - Authorized Specialty Diagnoses / Procedures Referred By Lynn t Referred To Contact Neuro/Ortho Surgery - Spine. / Neurological Surgery Diagnoses Low back pain, unspecified back pain laterality, unspecified chronicity, unspecified whether sciatica present DDD (degenerative disc disease), lumbar Lumbar radiculopathy Failed back syndrome Kosta Thomas MD [address] [place] [address] Josesito Martinez MD [address] [place] [address] Referral ID Status Reason Start Date Expiration Date Visits Requested Visits Authorized [id number] Authorized Specialty Services Required 12/19/[phone] Question Answer Referral Priority Within 10 days (routine) Where should this appointment be scheduled? [facility]: Back - Thoracic/Lumbar Do you have any recent complete loss of bladder or bowel function? No Comments Per Dr Thomas, pt needs to see either Dr Martinez, Dr Marcus, or Dr Tom. This pt is a past Dr Concepcion/Dr Valle pt. Reason for Visit * Reason Comments NEW PATIENT Low back pain * Evaluate & Treat - Unlimited Visits (Within 3 days (urgent)) - Authorized Specialty Diagnoses / Procedures Referred By Lynn t Referred To Contact Neuro/Ortho Surgery - Spine. / Neurological Surgery Diagnoses Postlaminectomy syndrome, lumbar Abnormal MRI, lumbar spine Jamarcus Carreno PA-C [address] [place] [address] Referral ID Status Reason Start Date Expiration Date Visits Requested Visits Authorized [id number] Authorized Specialty Services Required 12/05/2023 999 999 Encounter Details Date Type Department Care Team (Late st Contact Info) Description 12/19/2023 10:30 AM EDT Office Visit Orthopaedics Spine Surgery, [facility] [address] [place] [address] Kosta Thomas MD [address] [place], [place] [phone] Low back pain, unspecified back pain laterality, unspecified chronicity, unspecified whether sciatica present*; DDD (degenerative disc disease), lumbar; Lumbar radiculopathy; Failed back syndrome Allergies Active Allergy Reactions Criticality Noted Date Comments Adhesive Tape 03/31/2023 Other Reaction(s): Tape- redness, paper tape/coban "ok", [id number] TAPE OK OR COBAN Clarithromycin High 03/31/2023 Other Reaction(s): Rash, diarrhea, RASH,DIARRHEA Duloxetine Hcl Flushing,Nausea/vomi tin g High 10/20/2019 Erythromycin Base Rash 03/14/2004 Orlistat Low 03/31/2023 Other Reaction(s): GI UPSET Penicillins Rash 03/14/2004 Prednisone Other (Please comment) High 10/10/2023 pancreatitis Sulfa Antibiotics Rash 03/14/2004 documented as of this encounter (statuses as of 12/28/2023) Medications Medication Sig Dispensed Refills Start Date End Date Status Cholecalciferol (VITAMIN D) 1000 UNIT Capsule Take 1 Cap by mouth daily. 30 Cap 11 5 Active Sennosides (SENNA) 8.6 MG Tablet TAKE 2 TABLETS BY MOUTH DAILY NEEDED FOR CONSTIPATION. 60 Tab 5 6 Active Aspirin 81 MG Oral Tablet Chewable Take 1 Tab by mouth daily. 30 Tab 11 0 Active Pantoprazole Sodium 40 MG Oral Tablet Delayed Release (Protonix) TAKE ONE TABLET BY MOUTH EVERY DAY 30 MNUTES PRIOR TO FIRST MEAL OF THE DAY, DO NOT CRUSH SPLIT OR CHEW TABLET 90 Tablet 3 3 03/06/20 24 Active Atorvastatin Calcium 80 MG Oral Tablet [...] 90 Tablet 3 4 05/26/19 25 Active Sucralfate 1 GM Oral Tablet (Carafate) TAKE ONE TABLET BY MOUTH IN THE MORNING AND TAKE ONE TABLET BEFORE BEDTIME 180 Tablet 3 4 07/25/19 25 Active Levalbuterol HCl 1.25 MG/3ML Inhalation Nebulization Solution (Xopenex)Indicat ions:Acute cough,Shortness of breath,Bronchiti s Inhale 1 Ampule via nebulizer every 4 hours as needed for Wheezing. 72 mL 12 4 Active Metoprolol Succinate ER 25 MG Oral [...] for Wheezing. 15 g 12 4 Active hydrOXYzine HCl 50 MG Oral Tablet Take 1 Tablet by mouth 3 times a day as needed for Anxiety (hyperventilatio n). 30 Tablet 4 Active Baclofen 20 MG Oral Tablet TAKE ONE TABLET BY MOUTH FOUR TIMES A DAY (MORNING, NOON, EVENING AND BEDTIME) 360 Tablet 4 Active Metoclopramide HCl 10 MG Oral Tablet (Reglan) TAKE ONE TABLET BY MOUTH THREE TIMES A DAY THIRTY MINUTES BEFORE MEALS 270 Tablet 4 09/26/19 25 Active Sertraline HCl 100 MG Oral Tablet (Zoloft) 4 Active Famotidine 20 MG Oral Tablet (Pepcid)Indicati ons:Abdominal pain, epigastric,Chron ic superficial gastritis without bleeding Take 1 Tablet by mouth in the morning and 1 Tablet before bedtime. 60 Tablet 11 4 Active Lactulose 10 GM/15ML Oral Solution (Constulose) Take 15 mL by mouth 2 times a day as needed for Constipation. severe constipation 237 mL 1 4 Active metFORMIN HCl 500 MG Oral Tablet (Glucophage) Take 1 Tablet by mouth 2 times a day with morning and evening meals. 60 Tablet 4 4 Active Ezetimibe 10 MG Oral Tablet (Zetia)Indicatio ns:Coronary artery disease involving [place] coronary artery of [place] heart with unstable angina pectoris (HCC) TAKE [...] before bedtime. 90 Tablet 2 4 Active Diclofenac Sodium 50 MG Oral Tablet Delayed Release (Voltaren) Take 1 Tablet by mouth in the morning and 1 Tablet before bedtime. 60 Tablet 2 4 Active Gabapentin 800 MG Oral Tablet (Neurontin)Indic ations:DDD (degenerative disc disease), cervical Take 1 Tablet by mouth in the morning and 1 Tablet at noon and 1 Tablet before bedtime. 270 Tablet 1 4 12/25/19 24 Discontinued traMADol HCl 50 MG Oral Tablet (Ultram)Indicati ons:Postlaminect stefany syndrome, lumbar Take 2 Tablets by mouth every 6 hours as needed for Pain, Moderate. 90 Tablet 4 12/22/19 24 Discontinued(Re fill) documented as of this encounter (statuses as of 12/28/2023) Active Problems Problem Noted Date Diagnosed Date [...] hypothyroidism 04/12/2021 Coronary artery disease invo lving [place] coronary artery of [place] heart without angina pectoris 09/27/2020 Last Assessment [...] as of this encounter (statuses as of 12/28/2023) Resolved Problems Problem Noted Date Diagnosed Date [...] as of this encounter (statuses as of 12/28/2023) Immunizations Name Administration Dates Next Due COVID-19 [...] Sign Reading Time Taken Comments Blood Pressure - - Pulse - - Temperature - - Respiratory Rate - - Oxygen Saturation - - Inhaled Oxygen Concentration - - Weight 82.7 kg (182 lb 6.4 oz) 12/19/2023 10:22 AM EDT Height 165.1 cm (5' 5") 12/19/2023 10:22 AM EDT Body Mass Index 30.35 12/19/2023 10:22 AM EDT documented in this encounter Functional [...] as of this encounter Progress Notes * Kosta Thomas MD - 12/28/2023 3:15 PM EDT Please see dictated note for documentation on this encounter. [facility] Kosta Thomas MD 12/28/2023 3:15 PM CLINIC NOTES Orthopaedics Spine Surgery, [address] [address] NAME: Shalini Pace : 1960 ORTHOPAEDIC SURGERY OUTPATIENT NOTE 12/19/2023 CHIEF COMPLAINT: Low back and bilateral leg pain HISTORY: The patient is a 63-year-old retired woman who is here for evaluation of her back and legs. She has had a total of 4 low back surgeries by Neurosurgery by Dr. Hurt and Dr. Valle. The mostrecent surgery was a spinal cord stimulator implantation. She had it adjusted about 3 months ago. Patient rates her pain as 10 excruciating at its best and worst. It is primarily a stabbing pain inthe low back with pins and needles and numbness down the left leg. She has some numbness in both feet. CURRENT MEDICATIONS: Per [facility] ALLERGIES: Clarithromycin, Duloxetine hcl, Prednisone, Adhesive tape, Erythromycin base, Penicillins, Sulfa antibiotics, and Orlistat REVIEW OF SYSTEMS: A 10 system review of systems was done. Her problem list was displayed in her Epic snapshot FAMILY AND SOCIAL HISTORY: The patient is retired. She is not a smoker. She does not drink any alcoholic beverages. PHYSICAL EXAM: The patient is a well-developed well-nourished woman in no apparent distress. She is5 ft 5 in tall and weighs 182 lb. Her BMI is 29. Examination of the lumbar spine reveals well-healed surgical scars. She has a scar from her spinal cord stimulator implantation. She has decreased range of motion secondary to low back pain. She has nondermatomal numbness on the left side. She has some decreased sensation in both feet. LABORATORY AND XRAY DATA: MRI of the lumbar spine from 12/03/2023 was reviewed by me personally along with the report. I showed the patient the images. My interpretation is that her upper lumbar spine has only minor degenerative changes. At L3-4 thereare pars defects on the right and left. IMPRESSION: 1. Lumbago 2. Lumbar degenerative disc disease 3. Bilateral lumbar radiculopathy 4. Failed back syndrome 5. Chronic arachnoiditis RECOMMENDATIONS: Based on her current condition I feel patient has chronic back and leg pain problems in his association with multiple surgeries that were done by Neurosurgery. At this time from the symptomatic standpoint I gave her tizanidine 4 mg 1 p.o. TID with her pain medicine to see if it would work better. I gave her Cataflam 50 mg 1 p.o. TID after food. I gave her 2 refills but if these medicines are helpful she can get them from her PCP. I put in a Neurosurgery referral to 1 of the Neurosurgery spine specialists for ongoing continuing care for this patient who has had f4 Neurosurgeries Kosta Thomas MD 12/28/2023 3:16 PM * Kosta Thomas MD - 12/19/2023 11:18 AM EDT Please see dictated note for documentation on this encounter. [facility] Kosta Thomas MD 12/19/2023 11:18 AM documented in this encounter Plan of Treatment Upcoming Encounters Date Type Department Care Team (Late st Contact Info) Description 12/29/2023 12:30 PM EDT [facility] [place] [address] [address] Nika Guevara RN [address] [facility] [place] [address] 12/30/2023 10:00 AM EDT [facility] [address] [facility] [place] [address] Niranjan Brown MD [address] [facility] [place] [address] 01/08/2024 1:00 PM EDT Office Visit Gastroenterology, [facility] [address] [place] [address] Rachael Tavarez CRNP [address] [place] [address] 02/11/2024 10:30 AM EST Telemedicine [facility] [address] [place] [address] Oriana Isaacs PA-C [address] [place] [address] Edith Garcia, Community Health Fur Blowing Machine Attendant [address] [place] [address] 06/07/2024 11:00 AM EDT Office Visit Cardiology [facility] [address] [address] Angela Littlejohn CRNP [address] [place] [address] 06/21/2024 10:40 AM EDT Office Visit Family Practice [address] [phone] Keagan Sanchez MD [address] [place] [address] 08/09/2024 10:00 AM EDT Office Visit Orthopaedics [facility] 16 [place] [phone] Sami Angelo DO 16 [place] [address] 10/07/2024 2:40 PM EDT Office Visit Dermatology [facility] [address] [place] [address] Alden Ann PA-C [address] [place] [address] 11/25/2024 11:00 AM EDT Office Visit Neurology [facility] [place] [address] [facility], [place] [address] Kelly Waddell PA-C [address] [place] [address] Scheduled Procedures Name Priority Associated Diagnoses Date/Ti me COLONOSCOPY FLEXIBLE PROXIMA L DIAGNOSTIC Recall Family history of colonic polyps Scheduled Referrals Name Type Priority Associated Diagnoses Orde r Schedule SPINE SURGERY REFERRAL OP Referral Within 10 days (routine) Low back pain, unspecified back pain laterality, unspecified chronicity, unspecified whether sciatica present DDD (degenerative disc disease), lumbar Lumbar radiculopathy Failed back syndrome Ordered: 12/19/2023 Health Maintenance Due Date Last Done Comments [...] D LEVEL ONCE IN A LIFETIME-USE SMARTSET# 57322 Completed 01/28/2022, 02/21/2015, 12/30/2011 RETIRED - COLONOSCOPY-EVERY [...] this encounter Medical Devices Implanted Type Area Spud Grader Device Identifier Shelf Expiration Date Model / Serial / Lot Medtronic-05/27/2023 Implanted: (Quantity not on file) Neurostimulator [employer] : NEUROLOGIC PAIN 05/26/2049 [id number] / / [id number] Screw Jami Lacie 3 Ti Set - [id number] Implanted:Qt y: 6 on 03/10/2012 at [place] [facility] Bilateral : Spine Lumbar LEVON : SPINE [id number] / / Screw Lacie Pa Ti 6.5x50mm - [id number] Implanted:Qt y: 4 on 03/10/2012 at [place] [facility] Bilateral : Spine Lumbar LEVON : SPINE [id number] / / Browns Xia3 7.0 X 40mm Screws Implanted:Qt y: 2 on 03/10/2012 at [place] [facility] Bilateral : Spine Lumbar [id number] / / Shaun Lacie 3 Ti 6x70mm - [id number] Implanted:Qt y: 1 on 03/10/2012 at [place] [facility] N/A: Spine Lumbar LEVON : SPINE [id number] / / Shaun Lacie 3 Ti Max 6x80mm - [id number] Implanted:Qt y: 1 on 03/10/2012 at [place] [facility] N/A: Spine Lumbar LEVON : SPINE [id number] / / 9 X 25 X 4 - 8 Avs Wedge Nose Cage Implanted:Qt y: 1 on 03/10/2012 at [place] [facility] N/A: Spine Lumbar [id number] / / Stent Synergy Xd Mr 2.49c39dx - [id number] Implanted:Qt y: 1 on 09/20/2020 at [facility] Tencent [id number] 04/18/2022 [id number] / / [id number] Stent Synergy Xd Mr 2.22m67kt - [id number] Implanted:Qt y: 1 on 09/20/2020 at [facility] [employer] [id number] 04/25/2022 [id number] 2220 / / [id number] Screw Locking 4.5mm 15mm - [id number] Implanted:Qt y: 1 on 07/11/2022 by Sami Angelo DO at [place] [facility] Right: Shoulder [employer] 11/22/2025 108-4515 / / [id number] Bseplate Jasmeet Cmntlss W Scrw - [id number] Implanted:Qt y: 1 on 07/11/2022 by Sami Angelo DO at [place] [facility] Right: Shoulder [employer] 03/24/2027 105-0029 / / [id number] Glenosphere Rev Thee W Scrw - [id number] Implanted:Qt y: 1 on 07/11/2022 by Sami Angelo DO at [facility] Right: Shoulder [employer] 04/24/2027 105-3610 / / [id number] Screw Locking 4.5mm 15mm - [id number] Implanted:Qt y: 1 on 07/11/2022 by Sami Angelo DO at [facility] Right: Shoulder [employer] 03/24/2027 108-4515 / / [id number] Screw Locking 4.5mm 20mm - [id number] Implanted:Qt y: 1 on 07/11/2022 by Sami [...] [facility] Right: Shoulder 02/21/2025 313-0706 / / [id number] Screw Locking 4.5mm 20mm - [id number] Implanted:Qt y: 1 on 07/11/2022 by Sami Angelo DO at [facility] Right: Shoulder [employer] 03/24/2027 108-4520 / / [id number] documented as of this encounter Visit Diagnoses Diagnosis Low back pain, unspecified back pain laterality, unspecified chronicity, unspecified whether sciatica present- Primary DDD (degenerative disc disease), lumbar Degeneration of lumbar or lumbosacral intervertebral disc Lumbar radiculopathy Thoracic or lumbosacral neuritis or radiculitis, unspecified Failed back syndrome Other unspecified back disorder documented in this encounter Advance Directives * [...] Agents on File Name Relationship Healthcare Agent [facility] Communication Donny Pace Spouse Health Care Agent Care Teams Ict Sales Representative Relationship Specialty Start Date End Date Keagan Sanchez MD [address] [place] [address] PCP - General Family Medicine 10/07/23 documented as of this encounter
--- OUTSIDE RECORDS SUMMARY | 2024-03-06 12:30 | External Medical Summary | Summary of Care ---
Author Name Unknown Organization [facility] Address [address] [place] [address] Phone [phone] Care Team Providers Care Analysis Director Name Role Phone Keagan Sanchez MD Primary Care Provider [phone] Reason for Visit * Reason Comments Medication Refill Encounter Details Date Type Department Care Team ([facility] Contact Info) Description 12/28/[address] [address] Keagan Sanchez MD [address] [place] [address] Allergies Active Allergy Reactions Criticality Noted Date Comments Adhesive Tape 03/31/2023 Other Reaction(s): Tape- redness, paper tape/coban "ok", [id number] TAPE OK OR COBAN Clarithromycin High 03/31/2023 [...] Oral Tablet (Zetia)Indications :Coronary artery disease involving [place] coronary artery of [place]vak heart with unstable angina pectoris (HCC) TAKE [...] hypothyroidism 04/12/2021 Coronary artery disease invo lving chev[place] coronary artery of chevak heart without angina pectoris 09/27/2020 Last Assessment & Plan: Has 3 stents (2 in LAD one in diagonal), placed at [facility] [place] [address] Womack Followed by [facility] cardiology, Angela Littlejohn, next appt May 2024 [...] preferred pharmacy and medication before forwarding?yes Pharmacy: [email or web address] Pending Prescriptions: Disp Refills Baclofen [...] 12:30 PM EDT [facility] Visit [facility] [address] [place] [address] Nika Guevara RN [address] [place] [address] 12/30/2023 10:00 AM EDT Office Visit Neurosurgery, [place] [address] [place] [address] Niranjan Brown MD [address] [place] [address] 01/08/2024 1:00 PM EDT Office Visit Gastroenterology, [facility] 132 [place] [address] Rachael Tavarez CRNP 132 [place] [address] 02/11/2024 10:30 AM EST Telemedicine [facility] [address] [place] [address] Oraina Isaacs PA-C [address] [place] [address] Edith Garcia, Community Health Campus Supervisor [address] [place] [address] 06/07/2024 11:00 AM EDT Office Visit Cardiology [address] [place] [address] Angela Littlejohn CRNP [address] [place] [address] 06/21/2024 10:40 AM EDT Office Visit Family Practice [facility] [address] [place] [address] Keagan Sanchez MD [address] [place] [address] 08/09/2024 10:00 AM EDT Office Visit [facility]ed[facility] [address] Sami Angelo DO 16 [place] [address] 10/07/2024 2:40 PM EDT Office Visit Dermatology [facility] [address] [place] [address] Alden Ann PA-C [address] [place] [address] 11/25/2024 11:00 AM EDT Office Visit Neurology [facility] [address] [facility] [place] [address] Kelly Waddell PA-C [address] [place] [address] Scheduled Procedures Name Priority Associated Diagnoses Date/Ti [...] D LEVEL ONCE IN A LIFETIME-USE SMARTSET# 45663 Completed 01/28/2022, 02/21/2015, 12/30/2011 RETIRED - COLONOSCOPY-EVERY [...] this encounter Medical Devices Implanted Type Area Timekeeper Supervisor Device Identifier Shelf Expiration Date Model / Serial / Lot Medtronic-05/27/2023 Implanted: (Quantity not on file) Neurostimulator MEDTRONIC : NEUROLOGIC PAIN 05/26/2049 [id number] / / [id number] Screw Jami Lacie 3 Ti Set - [id number] Implanted:Qt y: 6 on 03/10/2012 at [place] [facility] Bilateral : Spine Lumbar ELVON : SPINE [id number] / / Screw Lacie Pa Ti 6.5x50mm - [id number] Implanted:Qt y: 4 on 03/10/2012 at OR [facility] Bilateral : Spine Lumbar LEVON : SPINE [id number] / / Levon Xia3 7.0 X 40mm Screws Implanted:Qt y: 2 on 03/10/2012 at [facility] Bilateral : Spine Lumbar [id number] / / Shaun Lacie 3 Ti 6x70mm - [id number] Implanted:Qt y: 1 on 03/10/2012 at OR [facility] N/A: Spine Lumbar LEVON : SPINE [id number] / / Shaun Lacie 3 Ti Max 6x80mm - [id number] Implanted:Qt y: 1 on 03/10/2012 at OR [facility] N/A: Spine Lumbar LEVON : SPINE [id number] / / 9 X 25 X 4 - 8 Avs Wedge Nose Cage Implanted:Qt y: 1 on 03/10/2012 at OR [facility] N/A: Spine Lumbar [id number] / / Stent Synergy Xd Mr 2.08h33sc - [id number] Implanted:Qt y: 1 on 09/20/2020 at [facility] [employer] [id number] 04/18/2022 [id number] / / [id number] Stent Synergy Xd Mr 2.17z77an - [id number] Implanted:Qt y: 1 on 09/20/2020 at [facility] [employer] [id number] 04/25/2022 [id number] 2220 / / [id number] Screw Locking 4.5mm 15mm - [id number] Implanted:Qt y: 1 on 07/11/2022 by Sami Angelo DO at OR [facility] Right: Shoulder [employer] 11/22/2025 108-4515 / / [id number] Bseplate Jasmeet Cmntlss W Scrw - [id number] Implanted:Qt y: 1 on 07/11/2022 by Sami Angelo DO at [facility] Right: Shoulder [employer] 03/24/2027 105-0029 / / [id number] Glenosphere Rev Thee W Scrw - [id number] Implanted:Qt y: 1 on 07/11/2022 by Sami Angelo DO at [facility] Right: Shoulder [employer] 04/24/2027 105-3610 / / [id number] Screw Locking 4.5mm 15mm - [id number] Implanted:Qt y: 1 on 07/11/2022 by Sami Angelo DO at OR [facility] Right: Shoulder [employer] 03/24/2027 108-4515 / / [id number] Screw Locking 4.5mm 20mm - [id number] Implanted:Qt y: 1 on 07/11/2022 by Sami Angelo DO at OR [facility] Right: Shoulder [employer] 03/24/2027 108-4520 / / [id number] Humelock Ii Stem Ta6v Size 12 Cementless Implanted:Qt y: 1 on 07/11/2022 by Sami Angelo DO at OR [facility] Right: Shoulder [employer] 10/22/2026 [id number] / / [id number] Cortical Screw Ta6v, 5mm, L. 24mm Implanted:Qt y: 1 on 07/11/2022 by Sami Angelo DO at OR [facility] Right: Shoulder [employer] 09/22/2023 107-4524 / / [id number] Humeral Cup 135/145 Degree, Standard, 36/+6 Implanted:Qt y: 1 on 07/11/2022 by Sami Angelo DO at OR [facility] Right: Shoulder 02/21/2025 [id number] / / [id number] Screw Locking 4.5mm 20mm - [id number] Implanted:Qt y: 1 on 07/11/2022 by Sami Angelo DO at OR [facility] Right: Shoulder [employer] 03/24/2027 108-4520 [...] Pace Spouse Health Care Agent Care Teams Analysis Director Relationship Specialty Start Date End Date Keagan Sanchez MD [address] [place] [address] PCP - General Family Medicine 10/07/23 documented as of this encounter
--- OUTSIDE RECORDS SUMMARY | 2024-03-06 12:30 | External Medical Summary | Summary of Care ---
Author Name Unknown Organization [facility] Address [address] [place] [address] Phone [phone] Care Team Providers Care Director Process Name Role Phone Keagan Sanchez MD Primary Care Provider [phone] Reason for Visit * Reason Comments Follow Up Patient is here toda y for a 6 month follow upPatient would like to discuss left sided painShe is also completely numb in her crotch area and has no idea when she goes to the bathroomStates she also doesn't have the sensation to goStates she sees neurosurgery on the 8thAlso having back pain that goes down into her legs and causes numbness sometimesNo other concerns today Encounter Details Date Type Department Care Team (Latest Contact Info) Description 12/22/2023 1:40 PM EDT Office Visit [address] [address] Keagan Sanchez MD [address] [place] [address] Postlaminectomy syndrome, lumbar*; Abnormal MRI, lumbar spine; Elevated liver enzymes; Coronary artery disease involving [place] coronary artery of [place] heart without angina pectoris Allergies Active Allergy Reactions Criticality Noted Date Comments Adhesive Tape 03/31/2023 Other Reaction(s): Tape- redness, paper tape/coban "ok", [id number] TAPE OK OR COBAN Clarithromycin High 03/31/2023 [...] Oral Tablet (Zetia)Indicatio ns:Coronary artery disease involving [place] coronary artery of [place] heart with unstable angina pectoris (HCC) TAKE [...] before bedtime. 60 Tablet 2 4 Active traMADol HCl 50 MG Oral Tablet (Ultram)Indicati ons:Postlaminect stefany syndrome, lumbar Take 2 Tablets by mouth every 6 hours as needed for moderate pain. Refill on or after 12/30/2023 240 Tablet 4 Active Gabapentin 800 MG Oral Tablet [...] hypothyroidism 04/12/2021 Coronary artery disease invo lving [place] coronary artery of [place]ag[place] heart without angina pectoris 09/27/2020 Last Assessment & Plan: Has 3 stents (2 in LAD one in diagonal), placed at [facility] [address] Womack Followed by [facility] cardiology, Angela Littlejohn, next appt May 2024 [...] No 12/20/2023 Does the household have a [facility] hospital[facility] source of income? (Household - for [...] Sign Reading Time Taken Comments Blood Pressure 104/68 12/22/2023 1:34 PM EDT Pulse 68 12/22/2023 1:34 PM EDT Temperature 37.1 C (98.7 F) 12/22/2023 1:34 PM ED T Respiratory Rate 18 12/22/2023 1:34 PM EDT Oxygen Saturation 95% 12/22/2023 1:34 PM EDT Inhaled Oxygen Concentration - - Weight 84.5 kg (186 lb 3.2 oz) 12/22/2023 1:34 P M EDT Height - - Body Mass Index 30.99 12/19/2023 10:22 AM EDT documented in this [...] as of this encounter Progress Notes * Keagan Sanchez MD - 12/28/2023 3:08 PM EDT Images from the original note were not included. History of Present Illness Shalini Pace is a 63 year old female that presents for Follow Up (Patient is here today for a 6month follow up/Patient would like to discuss left sided pain/She is also completely numb in her crotch area and has no idea when she goes to the bathroom/States she also doesn't have the sensation to go/States she sees neurosurgery on the /Also having back pain that goes down into her legs and causes numbness sometimes/No other concerns today) Seen with She continues to have moderate to severe lower back pain radiating to left abdominal region/left hip region She vero any urinary or bowel incontinence-says she has good control over them but does mention decreased sensation in the "crotch:" region Reviewed last labs,medications,vaccinations,MRI lumbar spine in detail CT abdomen and pelvis from 11/21/23 reviewed I have had a lengthy discussion with patient that if she ever has any incontinence symptoms she needs to call 911 immediately. She was recently seen by orthopedic spine surgery and has neurosurgery appointment coming up on 12/30/23 To help with pain control she is taking tramadol max 6-8/day-we can also increase gabapentin to 1200 mg TID is needed-max doze-she will send me a message on what she is taking and then we can adjust the dose CAD stable-medications compliant no fever,cough vomiting diarrhea,rash,neck stiffness,chest pain,pnd,orthopnea,pedal edema,shortnessof breath,abdominal pain,dysuria,hematuria or melena She is also followed by [facility] Liver enzymes noted-needs follow up labs to monitor this Physical Exam Vitals: 12/22/23 1334 Temp: 37.1 C (98.7 F) Pulse: 68 Resp: 18 SpO2: 95% BP: 104/68 Ht Readings from Last 3 Encounters: 12/19/23 1.651 m (5' 5") 11/19/23 1.626 m (5' 4") 10/03/23 1.626 m (5' 4") Physical Exam Constitutional: Comments: Chronic pain Cardiovascular: Rate and Rhythm: Normal rate and regular rhythm. Pulses: Normal pulses. Heart sounds: Normal heart sounds. Pulmonary: Effort: Pulmonary effort is normal. Breath sounds: Normal breath sounds. Musculoskeletal: General: Tenderness (chronic b/l lower back pain radiating to left lower back,abdominal region) present. Cervical back: Normal range of motion. Neurological: Mental Status: She is alert and oriented to person, place, and time. Psychiatric: Comments: Anxiety + I have reviewed the following results: MRI lumbar spine, CMP, and CBC Ct abdomen and pelvis Assessment and Plan Postlaminectomy syndrome, lumbar - traMADol HCl 50 MG Oral Tablet (Ultram); Take 2 Tablets by mouth every 6 hours as needed for moderate pain. Refill on or after 12/30/2023 - PAIN MANAGEMENT DRUG PANEL, URINE W/ INTERPRETATION; Future Abnormal MRI, lumbar spine Reviewed MRI Lumbar spine Elevated liver enzymes - HEPATIC FUNCTION PANEL; Future Coronary artery disease involving [place] coronary artery of [place] heart without angina pectoris Compliant with metoprolol,atorvastatin Call back if symptoms worsen 911 if any incontinence Wrap-Up Follow Up: Return in about 6 months (around 06/20/2024), or if symptoms worsen or fail to improve, for Return with Physician. | For: Return with Physician | Check-out note: See romaine 3 months Labs today Urine tox today Time: I spent a total of 40-54 minutes (exact time 46 mins) on the date of service in preparation, delivery, and documentation of the care provided to Shalini Pace excluding any time spent in the performance of separately billed services. documented in this encounter Nursing Notes * Zhane Brice CCMA - 12/22/2023 1:33 PM EDT The patient has been properly identified by confirmation of name and date of . Chief Complaint Patient presents with Follow Up Patient is here today for a 6 month follow up Patient would like to discuss left sided pain She is also completely numb in her crotch area and has no idea when she goes to the bathroom States she also doesn't have the sensation to go States she sees neurosurgery on the Also having back pain that goes down into her legs and causes numbness sometimes No other concerns today documented in this encounter Plan of Treatment Upcoming Encounters Date Type Department Care Team (Late st Contact Info) Description 12/29/2023 12:30 PM EDT Home Visit [facility] at [place] [place] [address] [place] [address] Nika Guevara RN [address] [place] [address] 12/30/2023 10:00 AM EDT Office Visit Neurosurgery, [place] [address] [place] [address] Niranjan Brown MD [address] [place] [address] 01/08/2024 1:00 PM EDT Office Visit [facility]enterology, [facility] [place] [address] Rachael Tavarez CRNP 132 [facility] [place] [address] 02/11/2024 10:30 AM EST Telemedicine [facility] [place] [address] [place] [address] Oriana Isaacs PA-C [address] [place] [address] Edith Garcia, Community Health Customs Appraiser [address] [place] [address] 06/07/2024 11:00 AM EDT Office Visit Cardiology [facility] [address] [address] Angela Littlejohn CRNP [address] [place] [address] 06/21/2024 10:40 AM EDT Office Visit Family Practice [facility] [address] [place] [address] Keagan Sanchez MD 68 [place] [address] 08/09/2024 10:00 AM EDT Office Visit Orthopaedics [facility] 16 [place] [address] Sami Angelo DO 16 [place] [address] 10/07/2024 2:40 PM EDT Office Visit Dermatology [facility] [address] [place] [address] Alden Ann PA-C [address] [place], [place] [address] 11/25/2024 11:00 AM EDT Office Visit Neurology [facility] 200 [facility] [place] [address] Kelly Waddell PA-C [facility] [place] [address] Scheduled Procedures Name Priority Associated Diagnoses Date/Ti [...] D LEVEL ONCE IN A LIFETIME-USE SMARTSET# 51452 Completed 01/28/2022, 02/21/2015, 12/30/2011 RETIRED - COLONOSCOPY-EVERY [...] this encounter Medical Devices Implanted Type Area Sales Team Leader Device Identifier Shelf Expiration Date Model / Serial / Lot Medtronic-05/27/2023 Implanted: (Quantity not on file) Neurostimulator [employer] : NEUROLOGIC PAIN 05/26/2049 [id number] / / [id number] Screw Jami Lacie 3 Ti Set - [id number] Implanted:Qt y: 6 on 03/10/2012 at OR [facility] Bilateral : Spine Lumbar LEVON : SPINE [id number] / / Screw Lacie Pa Ti 6.5x50mm - [id number] Implanted:Qt y: 4 on 03/10/2012 at OR [facility] Bilateral : Spine Lumbar LEVON : SPINE [id number] / / Levon Xia3 7.0 X 40mm Screws Implanted:Qt y: 2 on 03/10/2012 at OR [facility] Bilateral : Spine Lumbar [id number] / / Shaun Lacie 3 Ti 6x70mm - [id number] Implanted:Qt y: 1 on 03/10/2012 at OR [facility] N/A: Spine Lumbar LEVON : SPINE [id number] / / Shaun Lacie 3 Ti Max 6x80mm - [id number] Implanted:Qt y: 1 on 03/10/2012 at OR [facility] N/A: Spine Lumbar LEVON : SPINE [id number] / / 9 X 25 X 4 - 8 Avs Wedge Nose Cage Implanted:Qt y: 1 on 03/10/2012 at OR [facility] N/A: Spine Lumbar [id number] / / Stent Synergy Xd Mr 2.36y85yo - [id number] Implanted:Qt y: 1 on 09/20/2020 at [facility] [employer] [id number] 04/18/2022 [id number] / / [id number] Stent Synergy Xd Mr 2.15w86qm - [id number] Implanted:Qt y: 1 on 09/20/2020 at [facility] [employer] [id number] 04/25/2022 [id number] 2220 / / [id number] Screw Locking 4.5mm 15mm - [id number] Implanted:Qt y: 1 on 07/11/2022 by Sami Angelo DO at OR [facility] Right: Shoulder [employer] 11/22/2025 108-4515 / / [id number] Bseplate Jasmeet Cmntlss W Scrw - [id number] Implanted:Qt y: 1 on 07/11/2022 by Sami Angelo DO OR [facility] Right: Shoulder [employer] 03/24/2027 105-0029 / / [id number] Glenosphere Rev Thee W Scrw - [id number] Implanted:Qt y: 1 on 07/11/2022 by Sami Angelo DO OR [facility] Right: Shoulder [employer] 04/24/2027 105-3610 / / [id number] Screw Locking 4.5mm 15mm - [id number] Implanted:Qt y: 1 on 07/11/2022 by Sami Angelo DO at OR [facility] Right: Shoulder [employer] 03/24/2027 108-4515 / / [id number] Screw Locking 4.5mm 20mm - [id number] Implanted:Qt y: 1 on 07/11/2022 by Sami Angelo DO at OR [facility] Right: Shoulder [employer] 03/24/2027 108-4520 / / [id number] Humelock Ii Stem Ta6v Size 12 Cementless Implanted:Qt y: 1 on 07/11/2022 by Sami Angelo DO at OR [facility] Right: Shoulder [employer] 10/22/2026 311-0212 / / [id number] Cortical Screw Ta6v, 5mm, L. 24mm Implanted:Qt y: 1 on 07/11/2022 by Sami Angelo DO at OR [facility] Right: Shoulder [employer] 09/22/2023 107-4524 / / [id number] Humeral Cup 135/145 Degree, Standard, 36/+6 Implanted:Qt y: 1 on 07/11/2022 by Sami Angelo DO at OR [facility] Right: Shoulder 02/21/2025 313-0706 / / [id number] Screw Locking 4.5mm 20mm - [id number] Implanted:Qt y: 1 on 07/11/2022 by Sami Angelo DO at OR [facility] Right: Shoulder [employer] 03/24/2027 108-4520 / / [id number] documented as of this encounter Results * PAIN MANAGEMENT DRUG PANEL, URINE W/ INTERPRETATION (12/22/2023 2:27 PM EDT) Compliance Interpretation Based on the medication information provided: The presence of tramadol and o-desmethyltra madol is CONSISTENT with tramadol use. 12/25/2023 2:35 PM EDT LABORATORY [facility] Comment:Changed Report: Prev iously reported on 12/23/2023 at 1557 EDT. See Results History in [facility] for previous versions of the report. Amphetamines Screen, U Negative Negative 12/25/2023 2:35 PM EDT LABORATORY [facility] Benzodiazepines Screen, U Negative Negative 12/25/2023 2:35 PM EDT LABORATORY C Cannabinoids Screen, U Negative Negative 12/25/2023 2:35 PM EDT LABORATORY C Cocaine Metabolite Screen, U Negative Negative 12/25/2023 2:35 PM EDT LABORATORY C Fentanyl Screen, U Negative Negative 2023 2:35 PM EDT LABORATORY [facility] Hydrocodone Screen, U Negative Negative 12/25/2023 2:35 PM EDT LABORATORY [facility] Methadone Metabolite Screen, U Negative Negative 12/25/2023 2:35 PM EDT LABORATORY [facility] Morphine/Codeine Screen, U Negative Negative 12/25/2023 2:35 PM EDT LABORATORY [facility] Oxycodone Screen, U Negative Negative 12/25/2023 2:35 PM EDT LABORATORY C Valid Interpretation Normal 12/25/2023 2:35 PM EDT LABORATORY [facility] Creatinine, U 33 mg/dL 12/25/2023 2:35 PM EDT LABORATORY [facility] Urine Urine specimen obtained by clean catch procedure / Unknown Non-blood Collection / Unknown 12/22/2023 2:27 PM EDT 12/22/2023 2:27 PM EDT Narrative LABORATORY [facility] - 12/25/2023 2:35 PM EDT Cutoff Concentrations: Drug Level Amphetamines 500 ng/mL Benzodiazepines 100 ng/mL Cannabinoids 50 ng/mL Cocaine Metabolite 150 ng/mL Fentanyl 1 ng/mL Hydrocodone / Hydromorphone 300 ng/mL Methadone Metabolite 100 ng/mL Morphine / Codeine 300 ng/mL Oxycodone / Oxymorphone 100 ng/mL Screening results are presumptive and can only be used for medical purposes. Confirmatory testing is available upon request. Keagan Sanchez MD LAB URINE ORDERABLES LABORATORY [facility] [address] [place] [address] * (ABNORMAL) HEPATIC FUNCTION PANEL (12/22/2023 2:27 PM EDT) [facility] Albumin 4.7 3.8 - 5.0 g/dL 12/23/2023 3:50 AM EDT LABORATORY [facility] AST 54(H) 10 - 35 U/L 12/23/2023 3:50 AM EDT LABORATORY [facility] Alkaline Phosphatase 62 35 - 130 U/L 12/23/2023 3:50 AM EDT LABORATORY [facility] ALT 73(H) 10 - 35 U/L 12/23/2023 3:50 AM EDT LAB[facility]ATORY [facility] Bilirubin, Total 0.3 <=1.2 mg/dL 12/23/2023 3:50 AM EDT LAB[facility]ATORY [facility] Bilirubin, Direct <0.2 0.0 - 0.3 mg/dL 12/23/2023 3:50 AM EDT LAB[facility]ATORY [facility] Protein 6.4 6.0 - 8.3 g/dL 12/23/2023 3:50 AM EDT LABORATORY [facility] Blood Venous blood specimen / Unknown Venipuncture / Unknown 12/22/2023 2:27 PM EDT 12/22/2023 2:27 PM EDT Keagan Sanchez MD LAB BLOOD ORDERABLES LABORATORY [facility] [address] [place] [address] documented in this encounter Visit Diagnoses Diagnosis Postlaminectomy syndrome, lumbar- Primary Postlaminectomy syndrome, lumbar region Abnormal MRI, lumbar spine Nonspecific (abnormal) findings on radiological and other examination of musculoskeletal system Elevated liver enzymes Nonspecific elevation of levels of transaminase or lactic acid dehydrogenase (LDH) Coronary artery disease involving [place] coronary artery of [place] heart without angina pectoris documented in this encounter Advance Directives * [...] on File Name Relationship Healthcare Agent [facility] Communication Donny Pace Spouse Health Care Agent Care Teams Director Process Relationship Specialty Start Date End Date Keagan Sanchez MD [address] [place] [address] PCP - General Family Medicine 10/07/23 documented as of this encounter
--- OUTSIDE RECORDS SUMMARY | 2024-03-06 12:30 | External Medical Summary ---
Author Name Unknown Address Unknown Organization K01:LABORATORY [facility] - [address] [place] [id number] Laboratory Report Ordering Provider Test Date Status YEIMI NICHOLS 12/26/2023 10:01:13 Final Observation Date Value Abnormality Reference (Units ) Status BUN 12/26/2023 10:01:13 10 6-20 (mg/dL) Final Creatinine 12/26/2023 10:01:13 0.9 0.5-1.0 (mg/dL) Final Glomerular filtration rate/1.73 sq M.predicted [Volume Rate/Area] in Serum, Plasma or Blood by Creatinine-based formula (CKD-EPI) 12/26/2023 10:01:13 77 >=60 (mL/min) Final eGFR is calculated based on the CKD-EPI 2020 equation. Sodium 12/26/2023 10:01:13 134 Below low normal 135 -146 (mmol/L) Final Potassium 12/26/2023 10:01:13 4.8 3.5-5.1 (m mol/L) Final Cl 12/26/2023 10:01:13 100 98-107 (mm ol/L) Final CO2 12/26/2023 10:01:13 27 22-32 (mmo l/L) Final Anion gap 12/26/2023 10:01:13 7 7-15 (mmol /L) Final Glucose 12/26/2023 10:01:13 100 70-120 (mg /dL) Final Calcium 12/26/2023 10:01:13 9.0 8.4-10.2 ( mg/dL) Final Albumin 12/26/2023 10:01:13 4.5 3.8-5.0 (g /dL) Final Phosphate 12/26/2023 10:01:13 3.8 2.5-4.8 (m g/dL) Final Performing Location LABORATORY C - [address] [place] [address]
--- OUTSIDE RECORDS SUMMARY | 2024-03-06 12:31 | External Medical Summary ---
Author Name Unknown Address Unknown Organization K01:[facility] [place] - [address] [address] Laboratory Report Ordering Provider Test Date Status YEIMI NICHOLS 12/26/2023 10:01:44 Final Observation Date Value Abnormality Reference (Units ) Status Albumin 12/26/2023 10:01:44 4.5 3.8-5.0 (g/dL) Final AST (Aspartate aminotransferase) 12/26/2023 10:01:44 51 Above high normal 10-35 (U/L) Final Alk Phos 12/26/2023 10:01:44 59 35-130 (U/L) Final ALT (Alanine aminotransferase) 12/26/2023 10:01:44 76 Above high normal 10-35 (U/L) Final Bilirubin, Total 12/26/2023 10:01:44 0.2 <=1.2 (mg/dL) Final Bilirubin, Direct 12/26/2023 10:01:44 <0.2 0.0-0.3 (mg/dL) Final Protein 12/26/2023 10:01:44 6.4 6.0-8.3 (g/dL) Final Performing Location [facility] [place] - [address] [address]
--- OUTSIDE RECORDS SUMMARY | 2024-03-06 12:31 | External Medical Summary | Summary of Care ---
Author Name Unknown Organization [facility] Address [address] [facility] [place] [address] Phone [phone] Care Team Providers Care Him Tech Name Role Phone Keagan Sanchez MD Primary Care Provider [phone] Reason for Visit * Reason Onset Date Comments [facility]: Maintenance 12/25/2023 Encounter Details Date Type Department Care Team (Late st Contact Info) Description 12/25/2023 12:15 PM EDT Scheduled Telephone [facility], [place] [address] [place] [address] Coordinator, [facility] [address] [place] [address] Allergies Active Allergy Reactions Criticality Noted Date Comments Adhesive Tape 03/31/2023 Other Reaction(s): Tape- redness, paper tape/coban "ok", [id number] TAPE OK OR COBAN Clarithromycin High 03/31/2023 Other Reaction(s): Rash, diarrhea, RASH,DIARRHEA Duloxetine Hcl Flushing,Nausea/vomi tin g High 10/20/2019 Erythromycin Base Rash 03/14/2004 Orlistat Low 03/31/2023 Other Reaction(s): GI UPSET Penicillins Rash 03/14/2004 Prednisone Other (Please comment) High 10/10/2023 pancreatitis Sulfa Antibiotics Rash 03/14/2004 documented as of this encounter (statuses as of 12/25/2023) Medications Medication Sig Dispensed Refills Start Date [...] Oral Tablet (Zetia)Indications :Coronary artery disease involving [place] coronary artery of [place] heart with unstable angina pectoris (HCC) TAKE [...] as of this encounter (statuses as of 12/25/2023) Active Problems Problem Noted Date Diagnosed Date [...] hypothyroidism 04/12/2021 Coronary artery disease invo lving [place] coronary artery of [place] heart without angina pectoris 09/27/2020 Last Assessment & Plan: Has 3 stents (2 in LAD one in diagonal), placed at [facility] [place] [address] Womack Followed by [facility] cardiology, Angela Littlejohn, next appt May 2024 [...] as of this encounter (statuses as of 12/25/2023) Resolved Problems Problem Noted Date Diagnosed Date [...] as of this encounter (statuses as of 12/25/2023) Immunizations Name Administration Dates Next Due COVID-19 [...] encounter Miscellaneous Notes * Telephone Encounter - Rachna Gama RN - 12/25/2023 10:49 AM EDT [facility] ED Follow Up Patient Overview: Patient Name: Shalini Pace Discharging Facility: [facility] Current [facility] Status: Currently Enrolled - Short Term Management Outpatient Risk of Hospital Admission and ED Visit: 26 % ED Clinical Background: ED Discharge Diagnosis: Other: Dizziness/lethargy related to adverse effect of drug Objective Data 12/24/2023 8:30 PM 12/24/2023 7:30 PM 12/24/2023 7:00 PM 12/24/2023 6:44 PM 12/24/2023 6:38 PM VITALS ACROSS ENCOUNTERS BP 131/67 118/65 118/61 112/63 126/66 Pulse 56 72 59 56 56 Disposition Overview: Remote Patient Monitoring Given: NO Remote Patient Monitoring Oxygen Requirements: NO supplemental oxygen needs identified with status of: NO DME needs identified DME Needs: NO DME needs identified with status of: NO DME needs identified Medication Review: New medication(s) added: Keflex BID Current Concerns: Received VM.Message left to call back [facility]. Scheduled follow-up includes: ED to Home follow up complete with appropriate follow up scheduled. Future Visits Scheduled: Future Appointments-next 60 days Date/Time Provider Specialty Dept Phone 12/25/2023 12:15 PM Coordinator, [facility] [phone] 12/29/2023 12:30 PM Nika Guevara RN [facility] [phone] 12/30/2023 10:00 AM (Arrive by 9:45 AM) Niranjan Brown MD Neurological Surgery [phone] 01/08/2024 1:00 PM (Arrive by 12:45 PM) Rachael Tavarez CRNP Gastroenterology [phone] 02/11/2024 10:30 AM Edith Garcia [facility] Health Topographical Engineer; Oriana Isaacs PA-C [facility] Arrive at: Patient's Home [phone] 06/07/2024 11:00 AM (Arrive by 10:45 AM) Angela Littlejohn CRNP Cardiology [phone] 06/21/2024 10:40 AM (Arrive by 10:25 AM) Keagan Sanchez MD Family Medicine [phone] 08/09/2024 10:00 AM Sami Angelo DO Orthopedics [phone] 10/07/2024 2:40 PM (Arrive by 2:25 PM) Alden Ann PA-C Dermatology [phone] 11/25/2024 11:00 AM (Arrive by 10:45 AM) Kelly Waddell PA-C Neurology [phone] Rachna Gama RN Telehealth Scheduling Guidelines Current Health Monitor Ordering Guidelines documented in this encounter Plan of Treatment Upcoming Encounters Date Type Department Care Team (Late st Contact Info) Description 12/29/2023 12:30 PM EDT Home Visit [facility], [facility] [address] [place] [address] Nika Guevara RN [address] [place] [address] 12/30/2023 10:00 AM EDT Office Visit Neurosurgery, [place] [address] [facility] [place] [address] Niranjan Brown MD [address] [place] [address] 01/08/2024 1:00 PM EDT Office Visit Gastroenterology, [facility] [address] [facility] [place] [address] Rachael Tavarez CRNP [address] [place] [address] 02/11/2024 10:30 AM EST Telemedicine [facility], [facility] [address] [place] [address] Oriana Isaacs PA-C [address] [place] [address] Edith Garcia, Community Health Topographical Engineer [address] [place] [address] 06/07/2024 11:00 AM EDT Office Visit Cardiology [facility] [address] [facility] [address] [place] [address] Angela Littlejohn CRNP [address] [place] [address] 06/21/2024 10:40 AM EDT Office Visit Family Practice [facility] [address] [place] [address] Keagan Sanchez MD [address] [place] [address] 08/09/2024 10:00 AM EDT Office [place] [facility] [place] [address] [place] [address] Sami Angelo DO [address] [place] [address] 10/07/2024 2:40 PM EDT Office Visit Dermatology [facility] [address] [place] [address] Alden Ann PA-C [address] [place] [address] 11/25/2024 11:00 AM EDT Office Visit Neurology [facility] [address] [facility] [place] [address] Kelly Waddell PA-C [address] [place] [address] Scheduled Procedures Name Priority Associated Diagnoses Date/Ti [...] D LEVEL ONCE IN A LIFETIME-USE SMARTSET# [id number] Completed 01/28/2022, 02/21/2015, 12/30/2011 RETIRED - COLONOSCOPY-EVERY [...] this encounter Medical Devices Implanted Type Area Pan Reclaim Processor Device Identifier Shelf Expiration Date Model / Serial / Lot Medtronic-05/27/2023 Implanted: (Quantity not on file) Neurostimulator MEDTRONIC : NEUROLOGIC PAIN 05/26/2049 [id number] / / [id number] Screw Jami Lacie 3 Ti Set - [id number] Implanted:Qt y: 6 on 03/10/2012 at OR [facility] Bilateral : Spine Lumbar LEVON : SPINE [id number] / / Screw Lacie Pa Ti 6.5x50mm - [id number] Implanted:Qt y: 4 on 03/10/2012 at OR [facility] Bilateral : Spine Lumbar LEVON : SPINE [id number] / / Dover Xia3 7.0 X 40mm Screws Implanted:Qt y: 2 on 03/10/2012 at OR [facility] Bilateral : Spine Lumbar [id number] / / Shaun Lacie 3 Ti 6x70mm - [id number] Implanted:Qt y: 1 on 03/10/2012 at OR [facility] N/A: Spine Lumbar LEVON : SPINE [id number] / / Shaun Lacie 3 Ti Max 6x80mm - [id number] Implanted:Qt y: 1 on 03/10/2012 at OR [facility] N/A: Spine Lumbar LEVON : SPINE [id number] / / 9 X 25 X 4 - 8 Avs Wedge Nose Cage Implanted:Qt y: 1 on 03/10/2012 at OR [facility] N/A: Spine Lumbar [id number] / / Stent Synergy Xd Mr 2.93i81rg - [id number] Implanted:Qt y: 1 on 09/20/2020 at CARDIAC LABS [facility] [employer] [id number] 04/18/2022 [id number] / / [id number] Stent Synergy Xd Mr 2.30d15rk - [id number] Implanted:Qt y: 1 on 09/20/2020 at [facility]S [facility] [employer] [id number] 04/25/2022 [id number] 2220 / / [id number] Screw Locking 4.5mm 15mm - [id number] Implanted:Qt y: 1 on 07/11/2022 by Sami Angelo DO at OR [facility] Right: Shoulder [employer] 11/22/2025 108-4515 / / [id number] Bseplate Jasmeet Cmntlss W Scrw - [id number] Implanted:Qt y: 1 on 07/11/2022 by Sami Angelo DO at OR [facility] Right: Shoulder [employer] 03/24/2027 105-0029 / / [id number] Glenosphere Rev Thee W Scrw - [id number] Implanted:Qt y: 1 on 07/11/2022 by Sami Angelo DO OR [facility] Right: Shoulder [employer] 04/24/2027 105-3610 / / [id number] Screw Locking 4.5mm 15mm - [id number] Implanted:Qt y: 1 on 07/11/2022 by Sami Angelo DO at OR [facility] Right: Shoulder [employer] 03/24/2027 108-4515 / / [id number] Screw Locking 4.5mm 20mm - [id number] Implanted:Qt y: 1 on 07/11/2022 by Sami Angelo DO OR [facility] Right: Shoulder [employer] 03/24/2027 108-4520 / / [id number] Humelock Ii Stem Ta6v Size 12 Cementless Implanted:Qt y: 1 on 07/11/2022 by Sami Angelo DO at OR [facility] Right: Shoulder [employer] 10/22/2026 311-0212 / / [id number] Cortical Screw Ta6v, 5mm, L. 24mm Implanted:Qt y: 1 on 07/11/2022 by Sami Angelo DO at OR [facility] Right: Shoulder [employer] 09/22/2023 107-4524 / / [id number] Humeral Cup 135/145 Degree, Standard, 36/+6 Implanted:Qt y: 1 on 07/11/2022 by Sami Angelo DO at OR [facility] Right: Shoulder 02/21/2025 313-0706 / / [id number] Screw Locking 4.5mm 20mm - [id number] Implanted:Qt y: 1 on 07/11/2022 by Sami Angelo DO at OR [facility] Right: Shoulder [employer] 03/24/2027 108-4520 [...] Pace Spouse Health Care Agent Care Teams Him Tech Relationship Specialty Start Date End Date Keagan Sanchez MD [address] [place] [address] PCP - General Family Medicine 10/07/23 documented as of this encounter
--- OUTSIDE RECORDS SUMMARY | 2024-03-06 12:31 | External Medical Summary | Summary of Care ---
Author Name Unknown Organization [facility] Address [address] [place] [address] Phone [phone] Care Team Providers [facility] Director Name Role Phone Keagan Sanchez MD Primary Care Provider [phone] Reason for Visit * Reason Onset Date Comments [facility]: Maintenance 12/24/2023 Encounter Details Date Type Department Care Team (Late st Contact Info) Description 12/24/2023 Telephone [facility], [place] [address] [place] [address] Raven Velazco RN [address] [place] [address] [facility]: Maintenance Allergies Active Allergy Reactions Criticality Noted Date Comments Adhesive Tape 03/31/2023 Other Reaction(s): Tape- redness, paper tape/coban "ok", [id number] TAPE OK OR COBAN Clarithromycin High 03/31/2023 [...] BEFORE MEALS 270 Tablet 09/26/2023 09/25/2024 Active Gabapentin 800 MG Oral Tablet (Neurontin)Indicat ions:DDD (degenerative disc disease), cervical Take 1 Tablet by mouth in the morning and 1 Tablet at noon and 1 Tablet before bedtime. 270 Tablet 1 10/07/2023 Active Sertraline HCl 100 MG Oral Tablet [...] Oral Tablet (Zetia)Indications :Coronary artery disease involving chilkoot coronary artery of chilkoot heart with unstable angina pectoris (HCC) TAKE [...] or after 12/30/2023 240 Tablet 12/22/2023 Active documented as of this encounter (statuses [...] hypothyroidism 04/12/2021 Coronary artery disease invo lving chilkoot coronary artery of chilkoot heart without angina pectoris 09/27/2020 Last Assessment & Plan: Has 3 stents (2 in LAD one in diagonal), placed at [facility] [place] [address] Womack Followed by [facility] cardiology, Angela Littlejohn, next appt May [...] encounter Miscellaneous Notes * Telephone Encounter - Lawanda Otoole, FLOR - 12/25/2023 6:53 AM EDT [facility] ED [facility] Notification Date: 12/25/2023 Time: 6:53 AM Ga Subprogram: Short-Term Management (less than 3 months) Ga Episode Start Date: No linked episodes [facility] Enrollment Status: Currently Enrolled Action Taken on [employer] Alert and Outcome of ED Visit: Review ONLY: Phone Call Follow Up ONLY Scheduled Lawanda Otoole, RN * Telephone Encounter - Raven Velazco RN - 12/24/2023 5:15 PM EDT TT ED notification received Patient currently in ED No disposition or notes at this time Scheduled follow up calls Raven Velazco RN [facility] Psychiatric Orderly documented in this encounter Plan of Treatment Upcoming Encounters Date Type Department Care Team (Late st Contact Info) Description 12/25/2023 12:15 PM EDT Scheduled Telephone [facility], [place] [id number] [place] [address] Coordinator, [facility] [address] [place] [address] 12/29/2023 12:30 PM EDT Home Visit [facility], [facility] [address] [place] [address] Nika Guevara RN [address] [place] [address] 12/30/2023 10:00 AM EDT Office Visit Neurosurgery, [place] [address] [place] [address] Niranjan Brown MD [address] [place] [address] 01/08/2024 1:00 PM EDT Office Visit Gastroenterology, [facility] [address] [place] [address] Rachael Tavarez CRNP [address] [place] [address] 02/11/2024 10:30 AM EST Telemedicine [facility] [place] [address] [place] [address] Oriana Isaacs PA-C [address] [place] [address] Edith Garcia, [facility] Health Aide [address] [place] [address] 06/07/2024 11:00 AM EDT Office Visit Cardiology [facility] [address] [place] [address] Angela Littlejohn CRNP [address] [place] [address] 06/21/2024 10:40 AM EDT Office Visit Family Practice [facility] [address] [place] [address] Keagan Sanchez MD [address] [place] [address] 08/09/2024 10:00 AM EDT Office Visit Orthopaedics [facility] [address] [place] [address] Sami Angelo DO [address] [place] [address] 10/07/2024 2:40 PM EDT Office Visit Dermatology [facility] [address] [place] [address] Alden Ann PA-C [address] [place] [address] 11/25/2024 11:00 AM EDT Office Visit [facility]rology [facility] [place] [address] [facility] [address] Kelly Waddell PA-C [address] [place] [address] Scheduled Procedures Name Priority Associated Diagnoses Date/Ti [...] D LEVEL ONCE IN A LIFETIME-USE SMARTSET# [id number] Completed 01/28/2022, 02/21/2015, 12/30/2011 RETIRED - COLONOSCOPY-EVERY [...] this encounter Medical Devices Implanted Type Area Coal Washer Device Identifier Shelf Expiration Date Model / Serial / Lot Medtronic-05/27/2023 Implanted: (Quantity not on file) Neurostimulator MED[employer] : NEUROLOGIC PAIN 05/26/2049 [id number] / / [id number] Screw Jami Lacie 3 Ti Set - [id number] Implanted:Qt y: 6 on 03/10/2012 at OR [facility] Bilateral : Spine Lumbar LEVON : SPINE [id number] / / Screw Lacie Pa Ti 6.5x50mm - [id number] Implanted:Qt y: 4 on 03/10/2012 at OR [facility] Bilateral : Spine Lumbar LEVON : SPINE [id number] / / Micanopy Xia3 7.0 X 40mm Screws Implanted:Qt y: 2 on 03/10/2012 at OR [facility] Bilateral : Spine Lumbar [id number] / / Shaun Lacie 3 Ti 6x70mm - [id number] Implanted:Qt y: 1 on 03/10/2012 at OR [facility] N/A: Spine Lumbar LEVON : SPINE [id number] / / Shaun Lacie 3 Ti Max 6x80mm - [id number] Implanted:Qt y: 1 on 03/10/2012 at OR [facility] N/A: Spine Lumbar LEVON : SPINE [id number] / / 9 X 25 X 4 - 8 Avs Wedge Nose Cage Implanted:Qt y: 1 on 03/10/2012 at OR [facility] N/A: Spine Lumbar [id number] / / Stent Synergy Xd Mr 2.59d49va - [id number] Implanted:Qt y: 1 on 09/20/2020 at [facility]ARD[facility]S [facility] Compario [id number] 04/18/2022 [id number] / / [id number] Stent Synergy Xd Mr 2.13n25gw - [id number] Implanted:Qt y: 1 on 09/20/2020 at [facility] Compario [id number] 04/25/2022 [id number] 2220 / / [id number] Screw Locking 4.5mm 15mm - [id number] Implanted:Qt y: 1 on 07/11/2022 by Sami Angelo DO at OR [facility] Right: Shoulder [employer] 11/22/2025 108-4515 / / [id number] Bseplate Jasmeet Cmntlss W Scrw - [id number] Implanted:Qt y: 1 on 07/11/2022 by Sami Angelo DO OR [facility] Right: Shoulder [employer] 03/24/2027 105-0029 / / [id number] Glenosphere Rev Thee W Scrw - [id number] Implanted:Qt y: 1 on 07/11/2022 by Sami Angelo DO OR [facility] Right: Shoulder [employer] 04/24/2027 105-3610 / / [id number] Screw Locking 4.5mm 15mm - [id number] Implanted:Qt y: 1 on 07/11/2022 by Sami Angelo DO at OR [facility] Right: Shoulder [employer] 03/24/2027 108-4515 / / [id number] Screw Locking 4.5mm 20mm - [id number] Implanted:Qt y: 1 on 07/11/2022 by Sami Angelo DO at OR [facility] Right: Shoulder [employer] 03/24/2027 108-4520 / / [id number] Humelock Ii Stem Ta6v Size 12 Cementless Implanted:Qt y: 1 on 07/11/2022 by Sami Angelo DO at OR [facility] Right: Shoulder [employer] 10/22/2026 311-0212 / / [id number] Cortical Screw Ta6v, 5mm, L. 24mm Implanted:Qt y: 1 on 07/11/2022 by Sami Angelo, DO at OR [facility] Right: Shoulder [employer] 09/22/2023 107-4524 / / [id number] Humeral Cup 135/145 Degree, Standard, 36/+6 Implanted:Qt y: 1 on 07/11/2022 by Sami Angelo, DO at OR [facility] Right: Shoulder 02/21/2025 313-0706 / / [id number] Screw Locking 4.5mm 20mm - [id number] Implanted:Qt y: 1 on 07/11/2022 by Sami Angelo, DO at OR [facility] Right: Shoulder [employer] 03/24/2027 108-4520 / / [id number] documented as of this encounter Advance Directives * Full Code (Latest Code Status on File) Date Activated Date Inactivated Comments 08/24/2023 2:03 AM 08/25/2023 2:02 PM This order re flects the patients [...] Agents on File Name Relationship [facility] Donny Pace Spouse Health Care Agent Care Teams Medical Center Director Relationship Specialty Start Date End Date Keagan Sanchez MD [address] [place] [address] PCP - General Family Medicine 10/07/23 documented as of this encounter
--- OUTSIDE RECORDS SUMMARY | 2024-03-06 12:31 | External Medical Summary | Summary of Care ---
Author Name Unknown Organization [facility] Address [address] [place] [address] Phone [phone] Care Team Providers Care Patient Account Liaison Name Role Phone Keagan Sanchez MD Primary Care Provider [phone] Reason for Visit * Reason Comments Dizziness * Auth/Cert Specialty Diagnoses / Procedures Referred By Lynn helton Referred To Contact [facility] [address] [place] [address] Phone: [phone] Emergency Medicine [facility] [address] [id number] Referral ID Status Reason Start Date Expiration Date Visits Re quested Visits Authorized [id number] Encounter Details Date Type Department Care Team (Late st Contact Info) Description 12/24/2023 5:58 PM EDT - 12/24/2023 8:31 PM EDT Emergency [facility] Emergency Department ([facility]) [address] [place] [address] Kenya Meek [address] [place] [address] Dizziness (Primary Dx); Screening for cardiovascular condition; Adverse effect of drug, initial encounter Discharge Disposition: Home - Self Care Allergies Active Allergy Reactions Criticality Noted Date Comments Adhesive Tape 03/31/2023 Other Reaction(s): Tape- redness, paper tape/coban "ok", [id number] TAPE OK OR COBAN Clarithromycin High 03/31/2023 [...] Oral Tablet (Zetia)Indications :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 10 Capsule 12/24/2023 12/29/2023 Active documented as of this encounter (statuses [...] hypothyroidism 04/12/2021 Coronary artery disease invo lving pit river coronary artery of pit river heart without angina pectoris 09/27/2020 Last Assessment [...] Sign Reading Time Taken Comments Blood Pressure 131/67 12/24/2023 8:30 PM EDT Pulse 56 12/24/2023 8:30 PM EDT Temperature 35.6 C (96.1 F) 12/24/2023 5:55 PM ED T Respiratory Rate 16 12/24/2023 8:30 PM EDT Oxygen Saturation 96% 12/24/2023 8:30 PM EDT Inhaled Oxygen Concentration - - Weight 78.9 kg (174 lb) 12/24/2023 5:55 PM EDT Height - - Body Mass Index 28.96 12/19/2023 10:22 AM EDT documented in this encounter Functional Status Functional Status Response Date of Assess ment Are you deaf or do you have serious difficulty hearing? No 08/24/2023 Are you blind or do you have serious difficulty seeing, even when wearing glasses? No 08/24/19 24 Do you have serious difficul ty walking [...] No 08/24/2023 documented as of this encounter Discharge Instructions * Discharge Instructions* Arthur Hernandez PA-C - 12/24/2023 8:21 PM EDT You have been seen and evaluated in the Emergency Department of [facility]. Please readthe discharge instructions below regarding your care. Summary Of Today's Visit: You were seen today for an evaluation of dizziness and generalized fatigue. Your workup was overall reassuring against any acute findings. However you did appear that you weremildly dehydrated. It appears most likely that the tizanidine is causing your increased drowsiness/dizziness present. Your urine was also slightly suspicious for infection. You will be prescribed Keflex for this possible infection. If your urine culture does not show any significant growth you may discontinue the antibiotic. New Prescriptions/Medication Changes: Please discontinue tizanidine as this is likely causing your drowsiness/dizziness. Discharge Medications Disp Refills Start End Cephalexin 500 MG Oral Capsule (Keflex) 10 Capsule 0 12/24/2023 12/29/2023 Sig - Route: Take 1 Capsule by mouth in the morning and 1 Capsule before bedtime. Do all this for 5days. - Oral Class: ePrescribing Renewals Renewal requests to authorizing provider (Arthur Hernandez PA-C) <b>prohibited</b> Follow Up/Continuation Of Care: Follow up with your family doctor as needed. Thank you for allowing us to care for you. Our goal is to provide you the best care. If you have any emergency needs in the future we will be glad to help you again. We are here to serve you! documented in this encounter ED Notes * Wanda Armstrong RN - 12/24/2023 5:59 PM EDT Patient states that around 2pm today she started feeling dizzy and out of it. She was also having some low blood pressures. documented in this encounter Plan of Treatment Upcoming Encounters Date Type Department Care Team (Late st Contact Info) Description 12/25/2023 12:15 PM EDT Scheduled Telephone [facility] [address] [place] [address] Coordinator, [facility] [address] [place] [address] 12/29/2023 12:30 PM EDT Home Visit [facility] [address] [place] [address] Nika Guevara RN [address] [place] [address] 12/30/2023 10:00 AM EDT Office Visit Neurosurgery, [facility] [address] [place] [address] Niranjan Brown MD [address], [place] [id number] 01/08/2024 1:00 PM EDT Office Visit Gastroenterology, [facility] [address] [facility] [place] [address] Rachael Tavarez CRNP [address] [place] [address] 02/11/2024 10:30 AM EST Telemedicine [facility] [address] [place] [address] Oriana Isaacs PA-C [address] [place] [address] Edith Garcia, Community Health Inspector [employer] [address] [place] [address] 06/07/2024 11:00 AM EDT Office Visit Cardiology [facility] [address] [address] Angela Littlejohn CRNP [address] [place] [address] 06/21/2024 10:40 AM EDT Office Visit Family Practice [facility] [address] [place] [phone] Keagan Sanchez MD [address] [place] [id number] 08/09/2024 10:00 AM EDT Office Visit Orthopaedics [facility] [address] [place] [address] Sami Angelo DO [address] [place] [address] 10/07/2024 2:40 PM EDT Office Visit Dermatology [facility] [address] [place] [phone] Alden Ann PA-C [address] [place] [address] 11/25/2024 11:00 AM EDT Office Visit Neurology [facility] [address] [facility] [place] [address] Kelly Waddell PA-C [address] [place] [address] Pending Results Name Type Priority Associated Diagnoses Date /Time CULTURE, URINE, QUANTITATIVE Lab Add-on 12/24/2023 7:10 PM EDT Scheduled Orders Name Type Priority Associated Diagnoses Orde r Schedule CULTURE, URINE, QUANTITATIVE Lab Add-on Perform Now for 1 Occurrences starting 12/24/2023 until 12/24/2023 EKG EKG STAT Screening for cardiovascular condition Perform Now for 1 Occurrences starting 12/24/2023 until 12/24/2023 Scheduled Procedures Name Priority Associated Diagnoses Date/Ti [...] D LEVEL ONCE IN A LIFETIME-USE SMARTSET# [id number] Completed 01/28/2022, 02/21/2015, 12/30/2011 RETIRED - COLONOSCOPY-EVERY [...] this encounter Medical Devices Implanted Type Area Associate Director Financial Aid Device Identifier Shelf Expiration Date Model / Serial / Lot Medtronic-05/27/2023 Implanted: (Quantity not on file) Neurostimulator [employer] : NEUROLOGIC PAIN 05/26/2049 [id number] / / [id number] Screw Jami Lacie 3 Ti Set - [id number] Implanted:Qt y: 6 on 03/10/2012 at [place] [facility] Bilateral : Spine Lumbar LEVON : SPINE [id number] / / Screw Lacie Pa Ti 6.5x50mm - [id number] Implanted:Qt y: 4 on 03/10/2012 at [place] [facility] Bilateral : Spine Lumbar LEVON : SPINE [id number] / / Levon Xia3 7.0 X 40mm Screws Implanted:Qt y: 2 on 03/10/2012 at [place] [facility] Bilateral : Spine Lumbar [id number] / / Shaun Lacie 3 Ti 6x70mm - [id number] Implanted:Qt y: 1 on 03/10/2012 at [place] [facility] N/A: Spine Lumbar LEVON : SPINE [id number] / / Shaun Lacie 3 Ti Max 6x80mm - [id number] Implanted:Qt y: 1 on 03/10/2012 at [place] [facility] N/A: Spine Lumbar LEVON : SPINE [id number] / / 9 X 25 X 4 - 8 Avs Wedge Nose Cage Implanted:Qt y: 1 on 03/10/2012 at [place] [facility] N/A: Spine Lumbar [id number] / / Stent Synergy Xd Mr 2.82i99wh - [id number] Implanted:Qt y: 1 on 09/20/2020 at [facility] Metabar [id number] 04/18/2022 [id number] / / [id number] Stent Synergy Xd Mr 2.97r59kf - [id number] Implanted:Qt y: 1 on 09/20/2020 at [facility] Metabar [id number] 04/25/2022 [id number] / / [id number] Screw Locking 4.5mm 15mm - [id number] Implanted:Qt y: 1 on 07/11/2022 by Sami Angelo DO at [place] [facility] Right: Shoulder [employer] 11/22/2025 [id number] / / [id number] Bseplate Jasmeet Cmntlss W Scrw - [id number] Implanted:Qt y: 1 on 07/11/2022 by Sami Angelo DO at [place] [facility] Right: Shoulder [employer] 03/24/2027 105-0029 / / [id number] Glenosphere Rev Thee W Scrw - [id number] Implanted:Qt y: 1 on 07/11/2022 by Sami Angelo DO at [place] [facility] Right: Shoulder [employer] 04/24/2027 105-3610 / / [id number] Screw Locking 4.5mm 15mm - [id number] Implanted:Qt y: 1 on 07/11/2022 by Sami Angelo DO at [place] [facility] Right: Shoulder [employer] 03/24/2027 108-4515 / / [id number] Screw Locking 4.5mm 20mm - [id number] Implanted:Qt y: 1 on 07/11/2022 by Sami [...] / [id number] Screw Locking 4.5mm 20mm - [id number] Implanted:Qt y: 1 on 07/11/2022 by Sami Angelo DO at [place] [facility] Right: Shoulder [employer] 03/24/2027 108-4520 / / [id number] documented as of this encounter Procedures Procedure Name Priority Date/Time Associated Diagnosis Comments EXTRA URINE FAIR TOP Routine 12/24/2023 7:10 PM EDT EXTRA TUBES Routine 12/24/2023 7:10 PM EDT URINALYSIS WITH MICROSCOPIC EXAM STAT 12/24/2023 7:10 PM EDT CTA HEAD/CTA NECK Routine 12/24/2023 6:3 1 PM EDT DIFFERENTIAL, AUTOMATED STAT 12/24/2023 6:19 PM EDT TROPONIN T, HIGH SENSITIVITY STAT 12/24/2023 6:19 PM EDT COMPREHENSIVE METABOLIC PANEL STAT 12/24/2023 6:19 PM EDT CBC STAT 12/24/2023 6:19 PM EDT LACTATE,WHOLE BLOOD Routine 12/24/2023 6 :19 PM EDT CBC STAT 12/24/2023 6:19 PM EDT TSH STAT 12/24/2023 6:19 PM EDT documented in this encounter Results * EXTRA URINE FAIR TOP (12/24/2023 7:10 PM EDT) Urine Urine specimen / Unknown 12/24/2023 7:10 PM EDT 12/24/2023 7:17 PM EDT Kenya Meek DO LAB URINE ORDERABL ES LAB[facility]AT[facility] [address] [place] [address] * (ABNORMAL) URINALYSIS WITH MICROSCOPIC EXAM (12/24/2023 7:10 PM EDT) Color, Urine Yellow Light Yellow, Yellow, Dark Yellow 12/24/2023 7:25 PM EDT LABORATORY [facility] Clarity, Urine Clear Clear 12/24/2023 7:25 PM EDT LABORATORY [facility] Glucose, Urine Negative Negative mg/dL 12/24/2023 7:25 PM EDT LABORATORY [facility] Bilirubin, Urine Negative Negative 12/24/2023 7:25 PM EDT LABORATORY [facility] Ketone, Urine Negative Negative mg/dL 12/24/2023 7:25 PM EDT LABORATORY [facility] Specific [place], Urine 1.012 1.003 - 1.030 12/24/2023 7:25 PM EDT LABORATORY [facility] Blood, Urine Negative Negative 12/24/2023 7:25 PM EDT LABORATORY [facility] pH, Urine 6.0 5.0 - 7.5 Units 12/24/2023 7:25 PM EDT LABORATORY [facility] Protein, Urine Negative Negative mg/dL 12/24/2023 7:25 PM EDT LABORATORY [facility] Urobilinogen, Urine 0.2 0.2, 1.0 mg/dL 12/24/2023 7:25 PM EDT LABORATORY [facility] Nitrite, Urine Negative Negative 12/24/2023 7:25 PM EDT LABORATORY [facility] Esterase, Urine Trace(A) Negative 12/24/2023 7:25 PM EDT LABORATORY [facility] RBC, Urine 0-2 0 - 2 /HPF 12/24/2023 7:25 PM EDT LABORATORY [facility] WBC, Urine 3-5(A) 0 - 2 /HPF 12/24/2023 7:25 PM EDT LABORATORY [facility] Bacteria, Urine 151-200(A) 0 - 25 /HPF 12/24/2023 7:25 PM EDT LABORATORY [facility] Urine Non-blood Collection / Unknown 12/24/2023 7:10 PM EDT 12/24/2023 7:17 PM EDT Arthur Hernandez PA-C LAB URINE ORDERA BLES [facility] [address] [place] [address] * CTA HEAD/CTA NECK (12/24/2023 6:31 PM EDT) Anatomical Region Laterality Modality Neck, Head, Cspine, Spine Comput ed Tomography 12/24/2023 6:26 PM EDT Impressions 12/24/2023 7:09 PM EDT IMPRESSION: No acute findings identified. PROCEDURE INFORMATION: Exam: CTA Neck Without And With Contrast Exam date and time: 12/24/2023 6:26 PM Age: 63 years old Clinical indication: Dizziness and giddiness TECHNIQUE: Imaging protocol: Computed tomographic angiography of the neck without and with contrast. Exam focused on the cervical segments of the vasculature. 3D rendering (Not supervised by radiologist): MIP and/or 3D reconstructed images were created by the technologist. Radiation optimization: All CT scans at this facility use at least one of these dose optimization techniques: automated exposure control; mA and/or kV adjustment per patient size (includes targeted exams where dose is matched to clinical indication); or iterative reconstruction. Contrast material: ISOVUE 370; Contrast volume: 80 ml; Contrast route: INTRAVENOUS (IV); COMPARISON: MRI C SPINE WO CONTRAST 02/12/2022 12:02 PM FINDINGS: Right common carotid artery: No stenosis. No dissection or occlusion. Right internal carotid artery: No stenosis of the extracranial segment. No dissection or occlusion. Right external carotid artery: No occlusion or stenosis of the origin. Left common carotid artery: No stenosis. No dissection or occlusion. Left internal carotid artery: No stenosis of the extracranial segment. No dissection or occlusion. Left external carotid artery: No occlusion or stenosis of the origin. Right vertebral artery: No stenosis. No dissection or occlusion. Left vertebral artery: No stenosis. No dissection or occlusion. Thyroid: Nonspecific heterogeneous density of the thyroid gland is noted. Soft tissues: Normal. No significant soft tissue swelling. Bones/joints: No acute fracture. Other findings: Minimal plaque carotid bulbs without stenosis. IMPRESSION: No acute findings identified. REFERENCES: NASCET CRITERIA. The degree of stenosis in the cervical segment of the internal carotid artery is based on NASCET criteria. Normal is no stenosis. Mild is less than 50% stenosis. Moderate is 50-69% stenosis. Severe is 70% to 99% stenosis. Total occlusion is no detectable patent lumen. THIS DOCUMENT HAS BEEN ELECTRONICALLY SIGNED BY BOBO MENCHACA MD Narrative 12/24/2023 7:09 PM EDT PROCEDURE INFORMATION: Exam: CTA Head Without And With Contrast, Arteriography Exam date and time: 12/24/2023 6:26 PM Age: 63 years old Clinical indication: Dizziness and giddiness TECHNIQUE: Imaging protocol: Computed tomographic angiography of the head without and with contrast. Exam focused on the arteries. 3D rendering (Not supervised by radiologist): MIP and/or 3D reconstructed images were created by the technologist. Radiation optimization: All CT scans at this facility use at least one of these dose optimization techniques: automated exposure control; mA and/or kV adjustment per patient size (includes targeted exams where dose is matched to clinical indication); or iterative reconstruction. Contrast material: ISOVUE 370; Contrast volume: 80 ml; Contrast route: INTRAVENOUS (IV); COMPARISON: MRI BRAIN W WO CONTRAST 11/02/2019 7:34 AM FINDINGS: ANTERIOR CIRCULATION: Right internal carotid artery: Intracranial segment is patent with no significant stenosis or occlusion. No aneurysm. Right middle cerebral artery: No occlusion or significant stenosis. No aneurysm. Right anterior cerebral artery: No occlusion or significant stenosis. No aneurysm. Left internal carotid artery: Intracranial segment is patent with no significant stenosis. No aneurysm. Left middle cerebral artery: No occlusion or significant stenosis. No aneurysm. Left anterior cerebral artery: No occlusion or significant stenosis. No aneurysm. POSTERIOR CIRCULATION: Right vertebral artery: No occlusion or significant stenosis. No aneurysm. Left vertebral artery: No occlusion or significant stenosis. No aneurysm. Basilar artery: No occlusion or significant stenosis. No aneurysm. Right posterior cerebral artery: No occlusion or significant stenosis. No aneurysm. Left posterior cerebral artery: No occlusion or significant stenosis. No aneurysm. Other arteries: Small amount of atherosclerotic plaque carotid siphons. HEAD: Brain: Normal. No hemorrhage. Unremarkable white matter. No mass effect. Cerebral ventricles: Normal. No ventriculomegaly. Bones: Unremarkable. No acute fracture. Paranasal sinuses: Visualized sinuses are normal. No fluid levels. Mastoid air cells: Visualized mastoids are normal. No mastoid effusion. Soft tissues: Unremarkable. Procedure Note Bobo Menchaca MD - 12/24/2023 PROCEDURE INFORMATION: Exam: CTA Head Without And With Contrast, Arteriography Exam date and time: 12/24/2023 6:26 PM Age: 63 years old Clinical indication: Dizziness and giddiness TECHNIQUE: Imaging protocol: Computed tomographic angiography of the head without andwith contrast. Exam focused on the arteries. 3D rendering (Not supervised by radiologist): MIP and/or 3D reconstructed images were created by the technologist. Radiation optimization: All CT scans at this facility use at least one ofthese dose optimization techniques: automated exposure control; mA and/or kV adjustment per patient size (includes targeted exams where dose is matchedto clinical indication); or iterative reconstruction. Contrast material: ISOVUE 370; Contrast volume: 80 ml; Contrast route: INTRAVENOUS (IV); COMPARISON: MRI BRAIN W WO CONTRAST 11/02/2019 7:34 AM FINDINGS: ANTERIOR CIRCULATION: Right internal carotid artery: Intracranial segment is patent with no significant stenosis or occlusion. No aneurysm. Right middle cerebral artery: No occlusion or significant stenosis. No aneurysm. Right anterior cerebral artery: No occlusion or significant stenosis. No aneurysm. Left internal carotid artery: Intracranial segment is patent with no significant stenosis. No aneurysm. Left middle cerebral artery: No occlusion or significant stenosis. Noaneurysm. Left anterior cerebral artery: No occlusion or significant stenosis. No aneurysm. POSTERIOR CIRCULATION: Right vertebral artery: No occlusion or significant stenosis. No aneurysm. Left vertebral artery: No occlusion or significant stenosis. No aneurysm. Basilar artery: No occlusion or significant stenosis. No aneurysm. Right posterior cerebral artery: No occlusion or significant stenosis. No aneurysm. Left posterior cerebral artery: No occlusion or significant stenosis. No aneurysm. Other arteries: Small amount of atherosclerotic plaque carotid siphons. HEAD: Brain: Normal. No hemorrhage. Unremarkable white matter. No mass effect. Cerebral ventricles: Normal. No ventriculomegaly. Bones: Unremarkable. No acute fracture. Paranasal sinuses: Visualized sinuses are normal. No fluid levels. Mastoid air cells: Visualized mastoids are normal. No mastoid effusion. Soft tissues: Unremarkable. IMPRESSION IMPRESSION: No acute findings identified. PROCEDURE INFORMATION: Exam: CTA Neck Without And With Contrast Exam date and time: 12/24/2023 6:26 PM Age: 63 years old Clinical indication: Dizziness and giddiness TECHNIQUE: Imaging protocol: Computed tomographic angiography of the neck without andwith contrast. Exam focused on the cervical segments of the vasculature. 3D rendering (Not supervised by radiologist): MIP and/or 3D reconstructed images were created by the technologist. Radiation optimization: All CT scans at this facility use at least one ofthese dose optimization techniques: automated exposure control; mA and/or kV adjustment per patient size (includes targeted exams where dose is matchedto clinical indication); or iterative reconstruction. Contrast material: ISOVUE 370; Contrast volume: 80 ml; Contrast route: INTRAVENOUS (IV); COMPARISON: MRI C SPINE WO CONTRAST 02/12/2022 12:02 PM FINDINGS: Right common carotid artery: No stenosis. No dissection or occlusion. Right internal carotid artery: No stenosis of the extracranial segment. No dissection or occlusion. Right external carotid artery: No occlusion or stenosis of the origin. Left common carotid artery: No stenosis. No dissection or occlusion. Left internal carotid artery: No stenosis of the extracranial segment. No dissection or occlusion. Left external carotid artery: No occlusion or stenosis of the origin. Right vertebral artery: No stenosis. No dissection or occlusion. Left vertebral artery: No stenosis. No dissection or occlusion. Thyroid: Nonspecific heterogeneous density of the thyroid gland is noted. Soft tissues: Normal. No significant soft tissue swelling. Bones/joints: No acute fracture. Other findings: Minimal plaque carotid bulbs without stenosis. IMPRESSION: No acute findings identified. REFERENCES: NASCET CRITERIA. The degree of stenosis in the cervical segment of theinternal carotid artery is based on NASCET criteria. Normal is no stenosis. Mild isless than 50% stenosis. Moderate is 50-69% stenosis. Severe is 70% to 99%stenosis. Total occlusion is no detectable patent lumen. THIS DOCUMENT HAS BEEN ELECTRONICALLY SIGNED BY BOBO MENCHACA MD Arthur DUPREE-Bianca RAD CT * (ABNORMAL) DIFFERENTIAL, AUTOMATED (12/24/2023 6:19 PM EDT) WBC 4.54 4.00 - 10.80 K/uL 12/24/2023 6:28 PM EDT LABORATORY [facility] Neutrophils % 34.8(L) 40.0 - 75.0 % 12/24/2023 6:28 PM EDT LABORATORY [facility] Lymphocytes % 52.4(H) 18.0 - 42.0 % 12/24/2023 6:28 PM EDT LABORATORY [facility] Monocytes % 11.5(H) 1.0 - 11.0 % 12/24/2023 6:28 PM EDT LABORATORY [facility] Eosinophils % 1.1 0.0 - 6.0 % 12/24/2023 6:28 PM EDT LABORATORY [facility] Basophils % 0.2 0.0 - 2.0 % 12/24/2023 6:28 PM EDT LABORATORY [facility] Absolute Neutrophils 1.58(L) 1.80 - 7.70 K/uL 12/24/2023 6:28 PM EDT LABORATORY [facility] Absolute Lymphocytes 2.38 1.00 - 4.80 K/ul 12/24/2023 6:28 PM EDT LABORATORY [facility] Absolute Monocytes 0.52 0.00 - 1.10 K/uL 12/24/2023 6:28 PM EDT LABORATORY [facility] Absolute Eosinophils 0.05 0.00 - 0.70 K/uL 12/24/2023 6:28 PM EDT LABORATORY [facility] Absolute Basophils 0.01 0.00 - 0.20 K/uL 12/24/2023 6:28 PM EDT LABORATORY [facility] Blood Venous blood specimen / Unknown Venipuncture / Unknown 12/24/2023 6:19 PM EDT 12/24/2023 6:24 PM EDT Arthur Hernandez PA-C LAB BLOOD ORDERA BLES Performing Organization Address City/[facility]/ZIP Co de Phone Number LABORATORY [address] [address] * (ABNORMAL) CBC (12/24/2023 6:19 PM EDT) [facility] WBC 4.54 4.00 - 10.80 K/uL 12/24/2023 6:28 PM EDT LABORATORY [facility] RBC 4.18 3.85 - 5.15 M/uL 12/24/2023 6:28 PM EDT LABORATORY [facility] HGB 11.7(L) 12.0 - 15.3 g/dL 12/24/2023 6:28 PM EDT LABORATORY [facility] HCT 36.0 36.0 - 45.2 % 12/24/2023 6:28 PM EDT LABORATORY [facility] MCV 86.1 81.5 - 97.5 fL 12/24/2023 6:28 PM EDT LABORATORY [facility] MCH 28.0 27.0 - 34.0 pg 12/24/2023 6:28 PM EDT LABORATORY [facility] MCHC 32.5 32.0 - 36.0 g/dL 12/24/2023 6:28 PM EDT LABORATORY [facility] RDW 15.7 11.5 - 15.5 % 12/24/2023 6:28 PM EDT LABORATORY [facility] PLT 168 140 - 400 K/uL 12/24/2023 6:28 PM EDT LABORATORY [facility] MPV 9.3 6.6 - 11.1 fL 12/24/2023 6:28 PM EDT LABORATORY [facility] Blood Venous blood specimen / Unknown Venipuncture / Unknown 12/24/2023 6:19 PM EDT 12/24/2023 6:24 PM EDT Arthur Hernandez PA-C LAB BLOOD ORDERA BLES LABORATORY [address] [address] * (ABNORMAL) LACTATE,WHOLE BLOOD (12/24/2023 6:19 PM EDT) Pathologist [facility] Lactate, Whole Blood 2.6(H) 0.4 - 2.0 mmol/L 12/24/2023 6:25 PM EDT LABORATORY [facility] Blood Venous blood specimen / Unknown Venipuncture / Unknown 12/24/2023 6:19 PM EDT 12/24/2023 6:24 PM EDT Arthur Arzolader PA-C LAB BLOOD ORDERA BLES Performing Organization Address City/[facility]/ZIP Co de Phone Number LABORATORY [address] [address] * (ABNORMAL) TSH (12/24/2023 6:19 PM EDT) [facility] TSH 5.00(H) 0.27 - 4.20 uIU/mL 12/24/2023 6:55 PM EDT LABORATORY [facility] Blood Venous blood specimen / Unknown Venipuncture / Unknown 12/24/2023 6:19 PM EDT 12/24/2023 6:24 PM EDT Arthur Hernandez PA-C LAB BLOOD ORDERA BLES Performing Organization Address [facility] Co de Phone Number LABORATORY [address] [address] [address] * TROPONIN T, HIGH SENSITIVITY (12/24/2023 6:19 PM EDT) [facility] Troponin T, High Sensitivity 11 <=14 ng/L 12/24/2023 6:55 PM EDT LABORATORY [facility] Blood Venous blood specimen / Unknown Venipuncture / Unknown 12/24/2023 6:19 PM EDT 12/24/2023 6:24 PM EDT Arthur Kush Mary PA-C LAB BLOOD ORDERA BLES Performing Organization Address City/[facility]/ZIP Co de Phone Number LABORATORY [address] [address] * (ABNORMAL) COMPREHENSIVE METABOLIC PANEL (12/24/2023 6:19 PM EDT) [facility] BUN 12 6 - 20 mg/dL 12/24/2023 6:57 PM EDT LABORATORY [facility] CREATININE 1.0 0.5 - 1.0 mg/dL 12/24/2023 6:57 PM EDT LABORATORY [facility] EGFR 66 >=60 mL/min 12/24/2023 6:57 PM EDT LABORATORY [facility] Comment:eGFR is calculated b ased on the CKD-EPI 2020 equation. SODIUM 128(L) 135 - 146 mmol/L 12/24/2023 6:57 PM EDT LABORATORY [facility] POTASSIUM 3.4(L) 3.5 - 5.1 mmol/L 12/24/2023 6:57 PM EDT LABORATORY [facility] CHLORIDE 93(L) 98 - 107 mmol/L 12/24/2023 6:57 PM EDT LABORATORY [facility] CO2 21(L) 22 - 32 mmol/L 12/24/2023 6:57 PM EDT LABORATORY [facility] ANION GAP 14 7 - 15 mmol/L 12/24/2023 6:57 PM EDT LABORATORY [facility] GLUCOSE 74 70 - 120 mg/dL 12/24/2023 6:57 PM EDT LAB[facility]ATORY [facility] Albumin 4.4 3.8 - 5.0 g/dL 12/24/2023 6:57 PM EDT LAB[facility]ATORY [facility] AST 63(H) 10 - 35 U/L 12/24/2023 6:57 PM EDT LABORATORY [facility] Alkaline Phosphatase 64 35 - 130 U/L 12/24/2023 6:57 PM EDT LABORATORY [facility] Bilirubin, Total 0.3 <=1.2 mg/dL 12/24/2023 6:57 PM EDT LABORATORY [facility] CALCIUM 8.6 8.4 - 10.2 mg/dL 12/24/2023 6:57 PM EDT LABORATORY [facility] Protein 6.8 6.0 - 8.3 g/dL 12/24/2023 6:57 PM EDT LABORATORY [facility] ALT 83(H) 10 - 35 U/L 12/24/2023 6:57 PM EDT LAB[facility]ATORY [facility] Blood Venous blood specimen / Unknown Venipuncture / Unknown 12/24/2023 6:19 PM EDT 12/24/2023 6:24 PM EDT Arthur Hernandez PA-C LAB BLOOD ORDERA BLES LABORATORY [place] [address] [place] [address] documented in this encounter Visit Diagnoses Diagnosis Dizziness- Primary Dizziness and giddiness Screening for cardiovascular condition Screening for other and unspecified cardiovascular conditions Adverse effect of drug, initial encounter documented in this encounter Administered Medications Inactive Administered Medications - up to 3 most recent administrations Medication Order MAR Action Action Date Dose Rate Site Cephalexin (Keflex) cap 500 mg 500 mg, Oral, ONCE, On Fri12/24/23 at 2015, For 1 dose Given 12/24/2023 7:40 PM EDT 500 mg droPERidol (Inapsine) inj 2.5 mg 2.5 mg, IV Push, ONCE, On Fri12/24/23 at 1900, For 1 dose Given 12/24/2023 6:38 PM EDT 2.5 mg Iopamidol (Isovue 370) inj 80 mL 80 mL, Intravenous, ONCE, On Fri12/24/23 at 1915, For 1 dose, Radiology Medication Routing (Non-IR) Given 12/24/2023 6:31 PM EDT 80 mL NSS 0.9% 1,000 mL bolus infusion Intravenous, at 1,000 mL/hr Administer over 60 Minutes, Administer entire volume within 60 minutes or less., ONCE, 1 dose, On Fri12/24/23 at 1900 Rate Verify 12/24/2023 7:36 PM EDT 1000 mL/hr Restarted 12/24/2023 7:09 PM EDT 1000 mL/hr New Bag 12/24/2023 6:38 PM EDT 1,000 mL 1000 mL/hr ondansetron (Zofran) inj 4 mg 4 mg, IV Push, ONCE, On Fri12/24/23 at 2000, For 1 dose Given 12/24/2023 7:42 PM EDT 4 mg potassium chloride ER tab 20 mEq 20 mEq, Oral, ONCE, On Fri12/24/23 at 1945, For 1 dose, This med should NOT be Crushed or Chewed Given 12/24/2023 7:09 PM EDT 20 mEq documented in this encounter Active and Recently Administered Medications Times are shown in EDT. Scheduled Medication Order 12/22/2023 12/23/2023 12/24/2023 Cephalexin (Keflex) cap 500 mg (COMPLETED) 500 mg, Oral, ONCE, On Fri12/24/23 at 2015, For 1 dose 1940 (Given - Provid er: Sheri Tenorio LPN) droPERidol (Inapsine) inj 2.5 mg (COMPLETED) 2.5 mg, IV Push, ONCE, On Fri12/24/23 at 1900, For 1 dose 183 (Given - Provid er: Talia Álvarez RN) Iopamidol (Isovue 370) inj 80 mL (COMPLETED) 80 mL, Intravenous, ONCE, On Fri12/24/23 at 1915, For 1 dose, Radiology Medication Routing (Non-IR) 183 (Given - Provid er: Power Melissa, RT (R)) NSS 0.9% 1,000 mL bolus infusion (COMPLETED) Intravenous, at 1,000 mL/hr Administer over 60 Minutes, Administer entire volume within 60 minutes or less., ONCE, 1 dose, On Fri12/24/23 at 1900 183 (New Bag - Prov ider: Talia Álvarez RN)190 (Paused - Provider: Sheri Tenorio LPN)190 (Restarted - Provider: Sheri Tenorio LPN)193 (Rate Verify - Provider: Sheri Tenorio LPN)194 (Stopped - Provider: Sheri Tenorio LPN) ondansetron (Zofran) inj 4 mg (COMPLETED) 4 mg, IV Push, ONCE, On Fri12/24/23 at 2000, For 1 dose 194 (Given - Provid er: Raúl Briseno RN) potassium chloride ER tab 20 mEq (COMPLETED) 20 mEq, Oral, ONCE, On Fri12/24/23 at 194, For 1 dose, This med should NOT be Crushed or Chewed 1908 (Given - Provid er: Sheri Tenorio LPN) documented in this encounter Advance Directives * [...] Pace Spouse Health Care Agent Care Teams Patient Account Liaison Relationship Specialty Start Date End Date Keagan Sanchez MD [address] [place] [address] PCP - General Family Medicine 10/07/23 documented as of this encounter
--- OUTSIDE RECORDS SUMMARY | 2024-03-06 12:31 | External Medical Summary ---
Author Name Unknown Address Unknown Organization K01:LABORATORY [facility] - [facility] [address] [place] [id number] Laboratory Report Ordering Provider Test Date Status YEIMI NICHOLS 12/26/2023 10:01:13 Final Observation Date Value Abnormality Reference (Units ) Status Parathyrin.intact [Mass/volume] in Serum or Plasma 12/26/2023 10:01:13 33 15-65 (pg/mL) Final Performing Location LABORATORY [facility] - [address] [place] [address]
--- OUTSIDE RECORDS SUMMARY | 2024-03-06 12:31 | External Medical Summary | Summary of Care ---
Author Name Unknown Organization [facility] Address [address] [place] [facility] [place] [address] Phone [phone] Care Team Providers Care Machine Cage Maker Name Role Phone Keagan Sanchez MD Primary Care Provider [phone] Reason for Visit * Reason Onset Date Comments [facility]: Acute 12/24/2023 Encounter Details Date Type Department Care Team (Late st Contact Info) Description 12/24/2023 Telephone [facility], [facility] [address] [facility] [place] [address] Berta Gurrola, [place] [address] [facility] [place] [address] [facility]: Acute Allergies Active Allergy Reactions Criticality Noted Date Comments Adhesive Tape 03/31/2023 Other Reaction(s): Tape- redness, paper tape/coban "ok", [id number] TAPE OK OR COBAN Clarithromycin High 03/31/2023 Other Reaction(s): Rash, diarrhea, RASH,DIARRHEA Duloxetine Hcl Flushing,Nausea/vomi tin g High 10/20/2019 Erythromycin Base Rash 03/14/2004 Orlistat Low 03/31/2023 Other Reaction(s): GI UPSET Penicillins Rash 03/14/2004 Prednisone Other (Please comment) High 10/10/2023 pancreatitis Sulfa Antibiotics Rash 03/14/2004 documented as of this encounter (statuses as of 12/24/2023) Medications Medication Sig Dispensed Refills Start Date [...] Oral Tablet (Zetia)Indications :Coronary artery disease involving [place] coronary artery of [place] heart with unstable angina pectoris (HCC) [...] as of this encounter (statuses as of 12/24/2023) Active Problems Problem Noted Date Diagnosed Date [...] hypothyroidism 04/12/2021 Coronary artery disease invo lving [place] coronary artery of [place] heart without angina pectoris 09/27/2020 Last Assessment & Plan: Has 3 stents (2 in LAD one in diagonal), placed at [facility] [address] Womack Followed by [facility] cardiology, Angela Littlejohn, next appt May 2024 [...] as of this encounter (statuses as of 12/24/2023) Resolved Problems Problem Noted Date Diagnosed Date [...] as of this encounter (statuses as of 12/24/2023) Immunizations Name Administration Dates Next Due COVID-19 [...] encounter Miscellaneous Notes * Telephone Encounter - Berta Gurrola RN - 12/24/2023 4:23 PM EDT Communication Note Name: Shalini Pace Situation: 63 yo female in [place] Background: LAD stent, CAD, HTN, Aflutter Assessment: The pt is reporting low BP on and off for the past week. Today and yesterday it has been worse. She c/o being lightheaded and dizzy. Her chin is numb. BP at time of call is 72/40 left armP 56, right arm 80/41 P 54.m She has been taking all medications as prescribed. New meds: Voltaren and Tizanidine. Denies chest pain. She reports "a little heaviness" with breathing. C/o weakness andfatigue. C/o a little nausea. Denies recent vomiting or diarrhea. Denies URI symptoms. Recommendation: acute HV Care team availability: TT sent Janes Shah RN- not able to accommodate- not in vicinity - Joanne Bonilla [facility]- not able to accommodate- not in vicinity 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 HPI: Shalini Pace is a 63 year old female that is calling [employer] [facility] to report hypotension, dizziness. Nursing Assessment: Patient's chief complaint for this call: Weakness/dizziness The pt is reporting low BP on and off for the past week. Today and yesterday it has been worse. She c/o being lightheaded and dizzy.She states that she feels 'out of it'. Her chin is numb. BP at time of call is 72/40 left arm P 56, right arm 80/41 P 54.m She has been taking all medications as prescribed. New meds: Voltaren and Tizanidine. Denies chest pain. She reports "a little heaviness" with breathing. C/o weakness and fatigue. C/o a little nausea. Denies recent vomiting or diarrhea. Denies URI symptoms. BP earlier today was 67/41 P 53. Pain Denies pain Baseline Assessment Able to performing ADLs at baseline (walking, daily tasks, etc.): No Chief Complaint is related to a chronic condition: Unknown Patient prescribed oxygen? No Patient has been ordered DME equipment (assistive devices, respiratory equipment, etc.): Unknown Medication Reconciliation: (See medication list) Received flu shot this season: Unknown Taking medication as ordered: Yes Medications ordered/taking to treat reason for call: Unknown Heart failure symptoms: No COPD exacerbation symptoms: No Reinforcement Education: Drink 2 glasses of water now Lie down now and elevate feet higher than heart level Call 911, have EMS transport to the ED. This import/export freight forwarder did offer to call 911 for the pt- she declined. Pt declines calling 911, states that she will have her daughter drive her in the car. Advised that is not [place] as she can become worse and in need of medical attention during the ride which her daughter would not be able to help. Advised if she worsens at all between now and the time that her dtr comes to pick her up then to call 911 as it is the safest option for her. Treatment/Plan: (need to report) TT to Dr Arauz about pt's status, he replied: "ED would be safest disposition given the cardiac hxand vague possible anginal equivalent sx and hypotension". Level of call: Emergent, EMS contacted EMS not contacted as the pt declined Outgoing call to transfer center, gave verbal report to Dr Meek Call back instructions provided to patient. Berta RAPP, RN [facility] Intake Nurse Navigator Triage documented in this encounter Plan of Treatment Upcoming Encounters Date Type Department Care Team (Late st Contact Info) Description 12/25/2023 12:15 PM EDT Scheduled Telephone [facility] [place], [facility] [address] [place] [address] Coordinator, [facility] [address] [place] [address] 12/29/2023 12:30 PM EDT Home Visit [facility], [facility] [address] [place] [address] Nika Guevara RN [address] [place] [address] 12/30/2023 10:00 AM EDT [address] [address] Niranjan Brown MD [address] [place] [address] 01/08/2024 1:00 PM EDT Office Visit Gastroenterology, [facility] [address] [place] [place] [address] Rachael Tavarez CRNP [address] [place] [address] 02/11/2024 10:30 AM EST Telemedicine [facility], [place] [facility] [address] [place] [address] Oriana Isaacs PA-C [address] [place] [address] Edith Garcia, [employer] Technology Manager [address] [place] [address] 06/07/2024 11:00 AM EDT Office Visit Cardiology [facility] [address] [address] Angela Littlejohn CRNP [address] [place] [address] 06/21/2024 10:40 AM EDT Office Visit Family Practice [facility] [address] [place] [address] Keagan Sanchez MD [address] [place] [address] 08/09/2024 10:00 AM EDT Office Visit Orthopaedics [facility] [address] [place] [id number] Sami Angelo DO [address] [place] [address] 10/07/2024 2:40 PM EDT Office Visit Dermatology [facility] [address] [place] [address] Alden Ann PA-C [address] [facility] [place] [address] 11/25/2024 11:00 AM EDT Office Visit Neurology [facility] [address] [place] [address] Kelly Waddell PA-C [address] [place] [address] Scheduled Procedures Name Priority Associated Diagnoses Date/Ti [...] 07/17/2023, 01/23, 09/20/2020, Additional history exists TSH 07/16/2024 07/17/2023, 080 11/2022, 09/10/2022, Additional history exists GFR 12/21/2024 12/22/2023, 10/24, 10/31/2023, Additional history exists DTap/Tdap Vaccines (3 - Td or Tdap) 10/10/2026 10/10/2016, 10/26/2005 Albumin/Creatinine Ratio 12/21/2026 12/22/2023 Colonoscopy 04/18/2027 04/18/2022, 03/25, 08/10/2013, Additional history exists Colorectal Cancer Screening 04/18/2027 VITAMIN D LEVEL ONCE IN A LIFETIME-USE SMARTSET# [id number] Completed 01/28/2022, 02/21/2015, 12/30/2011 RETIRED - COLONOSCOPY-EVERY [...] this encounter Medical Devices Implanted Type Area Director Of Casework Services Device Identifier Shelf Expiration Date Model / Serial / Lot Medtronic-05/27/2023 Implanted: (Quantity not on file) Neurostimulator [employer] : NEUROLOGIC PAIN 05/26/2049 13615 / / [id number] Screw Jami Lacie 3 Ti Set - [id number] Implanted:Qt y: 6 on 03/10/2012 at OR [facility] Bilateral : Spine Lumbar LEVON : SPINE [id number] / / Screw Lacie Pa Ti 6.5x50mm - [id number] Implanted:Qt y: 4 on 03/10/2012 at OR [facility] Bilateral : Spine Lumbar LEVON : SPINE [id number] / / Levon Xia3 7.0 X 40mm Screws Implanted:Qt y: 2 on 03/10/2012 at OR [facility] Bilateral : Spine Lumbar [id number] / / Shaun Lacie 3 Ti 6x70mm - [id number] Implanted:Qt y: 1 on 03/10/2012 at OR [facility] N/A: Spine Lumbar LEVON : SPINE [id number] / / Shaun Lacie 3 Ti Max 6x80mm - [id number] Implanted:Qt y: 1 on 03/10/2012 at OR [facility] N/A: Spine Lumbar LVEON : SPINE [id number] / / 9 X 25 X 4 - 8 Avs Wedge Nose Cage Implanted:Qt y: 1 on 03/10/2012 at OR [facility] N/A: Spine Lumbar [id number] / / Stent Synergy Xd Mr 2.89b39ld - [id number] Implanted:Qt y: 1 on 09/20/2020 at [facility] [employer] [id number] 04/18/2022 [id number] / / [id number] Stent Synergy Xd Mr 2.72p03tl - [id number] Implanted:Qt y: 1 on 09/20/2020 at [facility] [employer] [id number] 04/25/2022 [id number] 2220 / / [id number] Screw Locking 4.5mm 15mm - [id number] Implanted:Qt y: 1 on 07/11/2022 by Sami Angelo DO at OR [facility] Right: Shoulder [employer] 11/22/2025 108-4515 / / [id number] Bseplate Jasmeet Cmntlss W Scrw - [id number] Implanted:Qt y: 1 on 07/11/2022 by Sami Angelo DO at OR [facility] Right: Shoulder [employer] 03/24/2027 105-0029 / / [id number] Glenosphere Rev Thee W Scrw - [id number] Implanted:Qt y: 1 on 07/11/2022 by Sami Angelo DO at OR [facility] Right: Shoulder [employer] 04/24/2027 105-3610 / / [id number] Screw Locking 4.5mm 15mm - [id number] Implanted:Qt y: 1 on 07/11/2022 by Sami Angelo DO at OR [facility] Right: Shoulder [employer] 03/24/2027 108-4515 / / [id number] Screw Locking 4.5mm 20mm - [id number] Implanted:Qt y: 1 on 07/11/2022 by Sami Angelo, DO at OR [facility] Right: Shoulder [employer] 03/24/2027 108-4520 / / [id number] Humelock Ii Stem Ta6v Size 12 Cementless Implanted:Qt y: 1 on 07/11/2022 by Sami Angelo, DO at OR [facility] Right: Shoulder [employer] 10/22/2026 [id number] / / [id number] Cortical Screw Ta6v, 5mm, L. 24mm Implanted:Qt y: 1 on 07/11/2022 by Sami Angelo DO at OR [facility] Right: Shoulder [employer] 09/22/2023 107-4524 / / [id number] Humeral Cup 135/145 Degree, Standard, 36/+6 Implanted:Qt y: 1 on 07/11/2022 by Sami Angelo DO at OR [facility] Right: Shoulder 02/21/2025 313-0706 / / [id number] Screw Locking 4.5mm 20mm - [id number] Implanted:Qt y: 1 on 07/11/2022 by Sami Angelo DO at OR [facility] Right: Shoulder [employer] 03/24/2027 108-4520 [...] Agents on File Name Relationship Healthcare [facility] Communication Donny Pace Spouse Health Care Agent Care Teams Machine Cage Maker Relationship Specialty Start Date End Date Keagan Sanchez MD [address] [place] [address] PCP - General Family Medicine 10/07/23 documented as of this encounter
--- OUTSIDE RECORDS SUMMARY | 2024-03-06 12:31 | External Medical Summary | Summary of Care ---
Author Name Unknown Organization [facility] Address [address] [place] [address] Phone [phone] Care Team Providers Care Concrete Technician Name Role Phone Keagan Sanchez MD Primary Care Provider [phone] Encounter Details Date Type Department Care Team (Late st Contact Info) Description 12/25/2023 Population Health External Data Unspecified Department Allergies Active Allergy Reactions Criticality Noted Date Comments Adhesive Tape 03/31/2023 Other Reaction(s): Tape- redness, paper tape/coban "ok", IDFU-TZTLPVY-DUEHT TAPE OK OR COBAN Clarithromycin High 03/31/2023 [...] Oral Tablet (Zetia)Indications :Coronary artery disease involving ute coronary artery of ute heart with unstable angina pectoris (HCC) TAKE [...] hypothyroidism 04/12/2021 Coronary artery disease invo lving ute coronary artery of ute heart without angina pectoris 09/27/2020 Last Assessment & Plan: Has 3 stents (2 in LAD one in diagonal), placed at [facility] [place] [address] Womack Followed by [facility] cardiology, Angela Littlejohn, next appt May 2024 [...] EDT Scheduled Telephone [facility], [facility] [address] [place] [address] Coordinator, [facility] [address] [place] [address] 12/29/2023 12:30 PM EDT Home Visit [facility], [facility] [address] [place] [address] Nika Guevara RN [address] [place] [address] 12/30/2023 10:00 AM EDT Office Visit Neurosurgery, [place] [address] [place] [address] Niranjan Brown MD [address] [place] [address] 01/08/2024 1:00 PM EDT Office Visit Gastroenterology, [facility] [address] [facility] [place] [address] Rachael Tavarez CRNP [address] [place] [address] 02/11/2024 10:30 AM EST Telemedicine [facility], [facility] [address] [place] [address] Oriana Isaacs PA-C [address] [place] [address] Edith Garcia, Community [facility] Automation Test Engineer [address] [place] [address] 06/07/2024 11:00 AM EDT Office Visit Cardiology [address] [place] [address] Angela Littlejohn CRNP [address] [place] [address] 06/21/2024 10:40 AM EDT Office Visit Family Practice [address] [address] Keagan Sanchez MD [address] [place] [address] 08/09/2024 10:00 AM EDT Office Visit Orthopaedics Andrez Alejandre [address] [place], [place] [address] Sami Angelo DO 16 [place] [address] 10/07/2024 2:40 PM EDT Office Visit Dermatology [facility] 68 [place] [phone] lAden Ann PA-C 68 [place] [address] 11/25/2024 11:00 AM EDT Office Visit Neurology [facility] [address] [place] [address] Kelly Waddell PA-C [address] [facility] [place] [address] Scheduled Procedures Name Priority Associated Diagnoses Date/Ti [...] D LEVEL ONCE IN A LIFETIME-USE SMARTSET# 56693 Completed 01/28/2022, 02/21/2015, 12/30/2011 RETIRED - COLONOSCOPY-EVERY [...] this encounter Medical Devices Implanted Type Area Matzo Forming Machine Operator Device Identifier Shelf Expiration Date Model / Serial / Lot Medtronic-05/27/2023 Implanted: (Quantity not on file) Neurostimulator MEDTRONIC : NEUROLOGIC PAIN 05/26/2049 [id number] / / [id number] Screw Jami Lacie 3 Ti Set - [id number] Implanted:Qt y: 6 on 03/10/2012 at [place] [facility] Bilateral : Spine Lumbar LEVON : SPINE [id number] / / Screw Lacie Pa Ti 6.5x50mm - [id number] Implanted:Qt y: 4 on 03/10/2012 at OR [facility] Bilateral : Spine Lumbar LEVON : SPINE [id number] / / Levon Xia3 7.0 X 40mm Screws Implanted:Qt y: 2 on 03/10/2012 at OR [facility] Bilateral : Spine Lumbar [id number] / / Shaun Lacie 3 Ti 6x70mm - [id number] Implanted:Qt y: 1 on 03/10/2012 at OR [facility] N/A: Spine Lumbar LEVON : SPINE [id number] / / Shaun Lacie 3 Ti Max 6x80mm - [id number] Implanted:Qt y: 1 on 03/10/2012 at OR [facility] N/A: Spine Lumbar LEVON : SPINE [id number] / / 9 X 25 X 4 - 8 Avs Wedge Nose Cage Implanted:Qt y: 1 on 03/10/2012 at OR [facility] N/A: Spine Lumbar [id number] / / Stent Synergy Xd Mr 2.70z39pc - [id number] Implanted:Qt y: 1 on 09/20/2020 at [facility] [employer] [id number] 04/18/2022 [id number] / / [id number] Stent Synergy Xd Mr 2.57d99zr - [id number] Implanted:Qt y: 1 on 09/20/2020 at [facility] [employer] [id number] 04/25/2022 [id number] 2220 / / [id number] Screw Locking 4.5mm 15mm - [id number] Implanted:Qt y: 1 on 07/11/2022 by Sami Angelo DO at OR [facility] Right: Shoulder [employer] 11/22/2025 108-4515 / / [id number] Bseplate Jasmeet Cmntlss W Scrw - [id number] Implanted:Qt y: 1 on 07/11/2022 by Sami Angelo DO at OR [facility] Right: Shoulder [employer] 03/24/2027 105-0029 / / [id number] Glenosphere Rev Thee W Scrw - [id number] Implanted:Qt y: 1 on 07/11/2022 by Sami Angelo DO at OR [facility] Right: Shoulder [employer] 04/24/2027 105-3610 / / [id number] Screw Locking 4.5mm 15mm - [id number] Implanted:Qt y: 1 on 07/11/2022 by Sami Angelo DO at OR [facility] Right: Shoulder [employer] 03/24/2027 108-4515 / / [id number] Screw Locking 4.5mm 20mm - [id number] Implanted:Qt y: 1 on 07/11/2022 by Sami Angelo DO at OR [facility] Right: Shoulder [employer] 03/24/2027 108-4520 / / [id number] Humelock Ii Stem Ta6v Size 12 Cementless Implanted:Qt y: 1 on 07/11/2022 by Sami Angelo DO at OR [facility] Right: Shoulder [employer] 10/22/2026 311-0212 / / [id number] Cortical Screw Ta6v, 5mm, L. 24mm Implanted:Qt y: 1 on 07/11/2022 by Sami Angelo DO at OR [facility] Right: Shoulder [employer] 09/22/2023 107-4524 / / [id number] Humeral Cup 135/145 Degree, Standard, 36/+6 Implanted:Qt y: 1 on 07/11/2022 by Sami Angelo DO at OR [facility] Right: Shoulder 02/21/2025 313-0706 / / [id number] Screw Locking 4.5mm 20mm - [id number] Implanted:Qt y: 1 on 07/11/2022 by Sami Angelo DO at OR [facility] Right: Shoulder [employer] 03/24/2027 108-4520 [...] Agents on File Name Relationship Healthcare [facility] Communication Donny Pace Spouse Health Care Agent Care Teams Concrete Technician Relationship Specialty Start Date End Date Keagan Sanchez MD [address] [place] [address] PCP - General Family Medicine 10/07/23 documented as of this encounter
--- OUTSIDE RECORDS SUMMARY | 2024-03-06 12:31 | External Medical Summary | Summary of Care ---
Author Name Unknown Organization [facility] Address [address] [place] [address] Phone [phone] Care Team Providers Care Air Conditioning Supervisor Name Role Phone Keagan Sanchez MD Primary Care Provider [phone] Reason for Visit * Reason Onset Date Comments [facility]: Maintenance 12/24/2023 Encounter Details Date Type Department Care Team (Late st Contact Info) Description 12/24/2023 Telephone [facility], [place] [address] [place] [address] Raven Velazco RN [address] [place] [address] [facility]: Maintenance Allergies Active Allergy Reactions Criticality Noted Date Comments Adhesive Tape 03/31/2023 Other Reaction(s): Tape- redness, paper tape/coban "ok", UFMC-COCWCXD-ISQNS TAPE OK OR COBAN Clarithromycin High 03/31/2023 [...] Oral Tablet (Zetia)Indications :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 (HCC) [...] hypothyroidism 04/12/2021 Coronary artery disease invo lving skull valley coronary artery of skull valley heart without angina pectoris 09/27/2020 Last [...] encounter Miscellaneous Notes * Telephone Encounter - Raven Velazco RN - 12/24/2023 5:15 PM EDT TT ED notification received Patient currently in ED No disposition or notes at this time Scheduled follow up calls Raven Velazco RN [facility] Senior Qa Automation Engineer documented in this encounter Plan of Treatment Upcoming Encounters Date Type Department Care Team (Late st Contact Info) Description 12/25/2023 12:15 PM EDT Scheduled Telephone [facility], [facility] [address] [place] [address] Coordinator, [facility] [address] [facility] [place] [address] 12/29/2023 12:30 PM EDT Home Visit [facility], [facility] [address] [place] [address] Nika Guevara RN [address] [place] [address] 12/30/2023 10:00 AM EDT Office Visit Neurosurgery, [place] [address] [place] [address] Niranjan Brown MD [address] [place] [address] 01/08/2024 1:00 PM EDT Office Visit Gastroenterology, [facility] [address] [facility] [place] [address] Rachael Tavarez CRNP [address] [place] [address] 02/11/2024 10:30 AM EST Telemedicine [facility], [facility] [address] [place] [address] Oriana Isaacs PA-C [address] [facility] [place] [address] Edith Garcia, Community [facility] Enamel Buffer [address] [place] [address] 06/07/2024 11:00 AM EDT Office Visit Cardiology [facility] [address] [facility] [address] [place] [phone] Angela Littlejohn CRNP [address] [place] [address] 06/21/2024 10:40 AM EDT Office Visit Family Practice [facility] [address] [place] [phone] Keagan Sanchez MD 68 [place] [address] 08/09/2024 10:00 AM EDT Office Visit Orthopaedics [facility] 16 [place] [address] Sami Angelo DO 16 [place], [place] [address] 10/07/2024 2:40 PM EDT Office Visit Dermatology [facility] [address] [place] [phone] Alden Ann PA-C [address] [place] [address] 11/25/2024 11:00 AM EDT Office Visit Neurology [facility] [address] [place] [address] Kelly Waddell PA-C [address] [facility] [place] [address] Scheduled Procedures Name Priority Associated Diagnoses Date/Ti [...] 09/20/2020, Additional history exists TSH 07/16/2024 07/17/2023, 08/0 11/2022, 09/10/2022, Additional history exists GFR 12/21/2024 12/22/2023, 10/24, 10/31/2023, Additional history exists DTap/Tdap Vaccines (3 - Td or Tdap) 10/10/2026 10/10/2016, 10/26/2005 Albumin/Creatinine Ratio 12/21/2026 12/22/2023 Colonoscopy 04/18/2027 04/18/2022, 03/25, 08/10/2013, Additional history exists Colorectal Cancer Screening 04/18/2027 VITAMIN D LEVEL ONCE IN A LIFETIME-USE SMARTSET# [id number] Completed 01/28/2022, 02/21/2015, 12/30/2011 RETIRED - COLONOSCOPY-EVERY [...] this encounter Medical Devices Implanted Type Area Permit Agent Device Identifier Shelf Expiration Date Model / Serial / Lot Medtronic-05/27/2023 Implanted: (Quantity not on file) Neurostimulator MEDTRONIC : NEUROLOGIC PAIN 05/26/2049 [id number] / / [id number] Screw Jami Lacie 3 Ti Set - [id number] Implanted:Qt y: 6 on 03/10/2012 at OR [facility] Bilateral : Spine Lumbar LEVON : SPINE [id number] / / Screw Lacie Pa Ti 6.5x50mm - [id number] Implanted:Qt y: 4 on 03/10/2012 at [facility] Bilateral : Spine Lumbar LEVON : SPINE [id number] / / Levon Xia3 7.0 X 40mm Screws Implanted:Qt y: 2 on 03/10/2012 at OR [facility] Bilateral : Spine Lumbar [id number] / / Shaun Lacie 3 Ti 6x70mm - [id number] Implanted:Qt y: 1 on 03/10/2012 at OR [facility] N/A: Spine Lumbar LEVON : SPINE [id number] / / Shaun Lacie 3 Ti Max 6x80mm - [id number] Implanted:Qt y: 1 on 03/10/2012 at OR [facility] N/A: Spine Lumbar LEVON : SPINE [id number] / / 9 X 25 X 4 - 8 Avs Wedge Nose Cage Implanted:Qt y: 1 on 03/10/2012 at OR [facility] N/A: Spine Lumbar [id number] / / Stent Synergy Xd Mr 2.83a58km - [id number] Implanted:Qt y: 1 on 09/20/2020 at [facility] [employer] [id number] 04/18/2022 [id number] 6220 / / [id number] Stent Synergy Xd Mr 2.82x46qj - [id number] Implanted:Qt y: 1 on 09/20/2020 at [facility] [employer] [id number] 04/25/2022 [id number] 2220 / / [id number] Screw Locking 4.5mm 15mm - [id number] Implanted:Qt y: 1 on 07/11/2022 by Sami Angelo DO at OR [facility] Right: Shoulder [employer] 11/22/2025 108-4515 / / [id number] Bseplate Jasmeet Cmntlss W Scrw - [id number] Implanted:Qt y: 1 on 07/11/2022 by Sami Angelo DO at OR [facility] Right: Shoulder [employer] 03/24/2027 105-0029 / / [id number] Glenosphere Rev Thee W Scrw - [id number] Implanted:Qt y: 1 on 07/11/2022 by Sami Angelo DO at OR [facility] Right: Shoulder [employer] 04/24/2027 105-3610 / / [id number] Screw Locking 4.5mm 15mm - [id number] Implanted:Qt y: 1 on 07/11/2022 by Sami Angelo DO at OR [facility] Right: Shoulder [employer] 03/24/2027 108-4515 / / [id number] Screw Locking 4.5mm 20mm - [id number] Implanted:Qt y: 1 on 07/11/2022 by Sami [...] / [id number] Screw Locking 4.5mm 20mm - [id number] Implanted:Qt y: 1 on 07/11/2022 by Sami [...] Spouse Health Care Agent Care Teams Air Conditioning Supervisor Relationship Specialty Start Date End Date Keagan Sanchez MD [address] [place] [id number] PCP - General Family Medicine 10/07/23 documented as of this encounter
--- OUTSIDE RECORDS SUMMARY | 2024-03-06 12:32 | External Medical Summary | Summary of Care ---
Author Name Unknown Organization [facility] Address [address] [place] [address] Phone [phone] Care Team Providers Care Photonics Engineer Name Role Phone Keagan Sanchez MD Primary Care Provider [phone] Reason for Visit * Reason Comments Outpatient Testing Encounter Details Date Type Department Care Team ([facility] st Contact Info) Description 12/22/2023 2:30 PM EDT Laboratory [facility] [phone] [address] Essential (primary) hypertension; Elevated liver enzymes; Postlaminectomy syndrome, lumbar; Shortness of breath Allergies Active Allergy Reactions Criticality Noted Date Comments Adhesive Tape 03/31/2023 Other Reaction(s): Tape- redness, paper tape/coban "ok", KICL-BRPDROD-TEMTK TAPE OK OR COBAN Clarithromycin High 03/31/2023 Other Reaction(s): Rash, diarrhea, RASH,DIARRHEA Duloxetine Hcl Flushing,Nausea/vomi tin g High 10/20/2019 Erythromycin Base Rash 03/14/2004 Orlistat Low 03/31/2023 Other Reaction(s): GI UPSET Penicillins Rash 03/14/2004 Prednisone Other (Please comment) High 10/10/2023 pancreatitis Sulfa Antibiotics Rash 03/14/2004 documented as of this encounter (statuses as of 12/22/2023) Medications Medication Sig Dispensed Refills Start Date [...] Oral Tablet (Zetia)Indications :Coronary artery disease involving klawock coronary artery of klawock heart with unstable angina pectoris (HCC) TAKE [...] as of this encounter (statuses as of 12/22/2023) Active Problems Problem Noted Date Diagnosed Date [...] arthroplasty, right 0 07/16/2022 Age-related osteoporosis wit rehan current pathological fracture 03/05/2022 Last Assessment & [...] hypothyroidism 04/12/2021 Coronary artery disease invo lving klawock coronary artery of klawock heart without angina pectoris 09/27/2020 Last Assessment & Plan: Has 3 stents (2 in LAD one in diagonal), placed [place] [facility] [address] Womack Followed by [facility] cardiology, Angela Littlejohn, next appt May 2024 [...] as of this encounter (statuses as of 12/22/2023) Resolved Problems Problem Noted Date Diagnosed Date [...] as of this encounter (statuses as of 12/22/2023) Immunizations Name Administration Dates Next Due COVID-19 mRNA, LNP-s, No Pre serve, 2-Dose Series (Moderna) 01/17/2021,05/23/2020,04/17/2020 COVID-19, MRNA-LNP, 24-25, P R, 30MCG/0.3ML, IM, 12YRS AND ABOVE (Pfizer-Comirnat) 12/11/2023 COVID-19, mRNA, LNP-s, PF, B ooster, 100mcg/0.5mg (Moderna) 07/11/2021 Covid-19, Mrna, Lnp-s, Pf, Bivalent, 50 Mcg, IM, 12 yrs and above (Moderna) 12/24/2021 Seasonal Influenza, MDCK, Trivalent, PF, (Flucelvax) 01/14/2014 Seasonal Influenza, PF, 6 M & above, IM , (FluLaval or Fluzone) 01/21/2023,12/03/2021,12/15/2020, 0 20,12/17/2018,04/28/2018 Seasonal Influenza, Quadriva lent, No Preserve, IM 12/18/2015 Seasonal Influenza, Quadriva lent, No Preserve, Mdck 12/05/2016 Seasonal Influenza, Trivalen t, (IIV3), PF, (Fluzone) 11/25/2023 Seasonal Influenza, Trivalen t, (IIV3), with Preserv, (Fluzone) 12/08/2014,01/12/2013,11/26/2011, 0 11 TDAP (age 10 and older)(Boostrix) 10/10/2016 TDAP, [...] PM EDT Home Visit [facility], [place] [address] [place] [address] Nika Guevara RN [address] [place] [address] 12/30/2023 10:00 AM EDT Office Visit Neurosurgery, [place] [address] [place] [address] Niranjan Brown MD [address] [place] [address] 01/08/2024 1:00 PM EDT Office Visit Gastroenterology, [facility] [address] [facility] [address] Rachael Tavarez CRNP [address] [place] [address] 02/11/2024 10:30 AM EST Telemedicine [facility], [place] [address] [place] [address] Oriana Isaacs PA-C [address] [place] [address] Edith Garcia, Community Health Dye Mixer [address] [place] [address] 06/07/2024 11:00 AM EDT Office Visit Cardiology [facility] [address] [phone] Angela Littlejohn CRNP [address] [place] [address] 06/21/2024 10:40 AM EDT Office Visit Family Practice [facility] [address] [place] [address] Keagan Sanchez MD [address] [place] [address] 08/09/2024 10:00 AM EDT Office Visit Orthopaedics [facility] 16 [place] [address] Sami Angelo DO [address] [place], [place] [address] 10/07/2024 2:40 PM EDT Office Visit Dermatology [facility] [address] [place] [phone] Alden Ann PA-C [address] [place] [address] 11/25/2024 11:00 AM EDT Office Visit Neurology [facility] [address] [place] [address] Kelly Waddell PA-C [address] [place] [address] Pending Results Name Type Priority Associated Diagnoses Date /Time ALBUMIN / CREATININE RATIO, URINE Lab Routine Essential (primary) hypertension 12/22/2023 2:27 PM EDT HEPATIC FUNCTION PANEL Lab Routine Elevated liver enzymes 12/22/2023 2:27 PM EDT PAIN MANAGEMENT DRUG PANEL, URINE W/ INTERPRETATION Lab Routine Postlaminectomy syndrome, lumbar 12/22/2023 2:27 PM EDT RENAL FUNCTION PANEL Lab Routine Shortness of breath 12/22/2023 2:27 PM EDT Scheduled Procedures Name Priority Associated Diagnoses Date/Ti me COLONOSCOPY FLEXIBLE PROXIMA L DIAGNOSTIC Recall Family history of colonic polyps Health Maintenance Due Date Last Done Comments HIV Screening 1976 Albumin/Creatinine Ratio 10/15/1979 Cologuard 2006 Sigmoidoscopy 2006 Zoster Vaccines (1 of 2) 10/15/2011 Fecal Occult Blood Test 08/03/2014 08/03/2013, 01/06 Depression Monitoring 03/05/2023 03/05/2022 *BISPHONATE OR OTHER ACCEPTABLE MEDICATION NEEDED FOR OSTEOPOROSIS (REFER TO SMARTSET #1146) 07/23/2023 DXA Scan 01/02/2024 01/01/2022, 1203/2016, 12/09/2011, Additional history exists Mammogram 04/24/2024 04/24/2023, 2024, 04/24/2023, Additional history exists HbA1c 07/16/2024 07/17/2023, 01/23, 09/20/2020, Additional history exists TSH 07/16/2024 07/17/2023, 08/0 11/2022, 09/10/2022, Additional history exists GFR 11/20/2024 11/21/2023, 08/0 11/2023, 08/25/2023, Additional history exists DTap/Tdap Vaccines (3 - Td or Tdap) 10/10/2026 10/10/2016, 10/26/2005 Colonoscopy 04/18/2027 04/18/2022, 03/25, 08/10/2013, Additional history exists Colorectal Cancer Screening 04/18/2027 VITAMIN D LEVEL ONCE IN A LIFETIME-USE SMARTSET# 99737 Completed 01/28/2022, 02/21/2015, 12/30/2011 RETIRED - COLONOSCOPY-EVERY [...] this encounter Medical Devices Implanted Type Area Rn Team Leader Device Identifier Shelf Expiration Date Model / Serial / Lot Medtronic-05/27/2023 Implanted: (Quantity not on file) Neurostimulator [employer] : NEUROLOGIC PAIN 05/26/2049 [id number] / / [id number] Screw Jami Lacie 3 Ti Set - [id number] Implanted:Qt y: 6 on 03/10/2012 at [place] [facility] Bilateral : Spine Lumbar LEVON : SPINE [id number] / / Screw Lacie Pa Ti 6.5x50mm - [id number] Implanted:Qt y: 4 on 03/10/2012 at [facility] Bilateral : Spine Lumbar LEVON : SPINE [id number] / / [place] Xia3 7.0 X 40mm Screws Implanted:Qt y: 2 on 03/10/2012 at [place] [facility] Bilateral : Spine Lumbar [id number] / / Shaun Lacie 3 Ti 6x70mm - [id number] Implanted:Qt y: 1 on 03/10/2012 at [place] [facility] N/A: Spine Lumbar LEVON : SPINE [id number] / / Shaun Lacie 3 Ti Max 6x80mm - [id number] Implanted:Qt y: 1 on 03/10/2012 at [place] [facility] N/A: Spine Lumbar LEVON : SPINE [id number] / / 9 X 25 X 4 - 8 Avs Wedge Nose Cage Implanted:Qt y: 1 on 03/10/2012 at OR [facility] N/A: Spine Lumbar [id number] / / Stent Synergy Xd Mr 2.27t16zw - [id number] Implanted:Qt y: 1 on 09/20/2020 at [facility] [employer] [id number] 04/18/2022 [id number] 6220 / / [id number] Stent Synergy Xd Mr 2.34y74sp - [id number] Implanted:Qt y: 1 on 09/20/2020 at [facility] [employer] [id number] 04/25/2022 [id number] 2220 / / [id number] Screw Locking 4.5mm 15mm - [id number] Implanted:Qt y: 1 on 07/11/2022 by Sami Angelo DO at [place] [facility] Right: Shoulder [employer] 11/22/2025 108-4515 / / [id number] Bseplate Jasmeet Cmntlss W Scrw - [id number] Implanted:Qt y: 1 on 07/11/2022 by Sami Angelo DO at [place] [facility] Right: Shoulder [employer] 03/24/2027 105-0029 / / [id number] Glenosphere Rev Thee W Scrw - [id number] Implanted:Qt y: 1 on 07/11/2022 by Sami Angelo DO at [place] [facility] Right: Shoulder [employer] 04/24/2027 105-3610 / / [id number] Screw Locking 4.5mm 15mm - [id number] Implanted:Qt y: 1 on 07/11/2022 by Sami Angelo DO at [place] [facility] Right: Shoulder [employer] 03/24/2027 108-4515 / / [id number] Screw Locking 4.5mm 20mm - [id number] Implanted:Qt y: 1 on 07/11/2022 by Sami Angelo DO at [place] [facility] Right: Shoulder [employer] 03/24/2027 108-4520 / / [id number] Humelock Ii Stem Ta6v Size 12 Cementless Implanted:Qt y: 1 on 07/11/2022 by Sami Angelo DO at [place] [facility] Right: Shoulder [employer] 10/22/2026 311-0212 / / [id number] Cortical Screw Ta6v, 5mm, L. 24mm Implanted:Qt y: 1 on 07/11/2022 by Sami Angelo DO at [place] [facility] Right: Shoulder [employer] 09/22/2023 107-4524 / / [id number] Humeral Cup 135/145 Degree, Standard, 36/+6 Implanted:Qt y: 1 on 07/11/2022 by Sami Angelo DO at [place] [facility] Right: Shoulder 02/21/2025 313-0706 / / [id number] Screw Locking 4.5mm 20mm - [id number] Implanted:Qt y: 1 on 07/11/2022 by Sami Angelo DO at OR [facility] Right: Shoulder [employer] 03/24/2027 108-4520 / / [id number] documented as of this encounter Visit Diagnoses Diagnosis Essential (primary) hypertension Unspecified essential hypertension Elevated liver enzymes Nonspecific elevation of levels of transaminase or lactic acid dehydrogenase (LDH) Postlaminectomy syndrome, lumbar Postlaminectomy syndrome, lumbar region Shortness of breath documented in this encounter Advance Directives * [...] File Name Relationship Healthcare Agent [facility] p Communication Donny Pace Spouse Health Care Agent Care Teams Photonics Engineer Relationship Specialty Start Date End Date Keagan Sanchez MD [address] [place] [address] PCP - General Family Medicine 10/07/23 documented as of this encounter
--- OUTSIDE RECORDS SUMMARY | 2024-03-06 12:32 | External Medical Summary ---
Author Name Unknown Address Unknown Organization [id number]:[facility] [place] [facility] [address] [place] [address] Laboratory Report Ordering Provider Test Date Status SIMONE,YEIMI 12/22/2023 14:27:04 Final Cutoff Concentrations:
D rug \X09\\X09\ Level
Tramadol 50 ng/mL
O- Desmethyltramadol 50 ng/mL

This test was developed and its performance characteristics determined by [employer]. It has not been cleared or approved by the [place] Food and Drug Administration.
null Observation Date Value Abnormality Reference (Units ) Status METHODOLOGY 12/22/2023 14:27:04 LC-MS/MS Final traMADol [Mass/volume] in Urine by Confirmatory method 12/22/2023 14:27:04 >4000 Above high normal Negative (ng/mL) Final O-nortramadol [Mass/volume] in Urine by Confirmatory method 12/22/2023 14:27:04 >50 Above high normal Negative (ng/mL) Final Performing Location [facility] [place] [facility] [address] [place] [address]
--- OUTSIDE RECORDS SUMMARY | 2024-03-06 12:32 | External Medical Summary ---
Author Name Unknown Address Unknown Organization K1G:LABORATORY [facility] - [address] [place] [id number] Laboratory Report Ordering Provider Test Date Status MERRILL ZARATE 12/24/2023 18:19:04 Final Observation Date Value Abnormality Reference (Units ) Status SYNC LEUKOCYTES IN BLOOD BY AUTOMATED COUNT 12/24/2023 18:19:04 4.54 4.00-10.80 (K/uL) Final Segs 12/24/2023 18:19:04 34.8 Below low normal 40.0-75.0 (%) Final Lymphs % 12/24/2023 18:19:04 52.4 Above high normal 18.0-42.0 (%) Final Monos 12/24/2023 18:19:04 11.5 Above high normal 1.0-11.0 (%) Final Eosinophils 12/24/2023 18:19:04 1.1 0.0-6.0 (%) Final Basos 12/24/2023 18:19:04 0.2 0.0-2.0 (%) Final Absolute Segs 12/24/2023 18:19:04 1.58 Below low normal 1.80-7.70 (K/uL) Final Lymphs, absolute 12/24/2023 18:19:04 2.38 1.00-4.80 (K/ul) Final Monos, Abs 12/24/2023 18:19:04 0.52 0.00-1.10 (K/uL) Final Eos, Abs 12/24/2023 18:19:04 0.05 0.00-0.70 (K/uL) Final Basos, Abs 12/24/2023 18:19:04 0.01 0.00-0.20 (K/uL) Final Performing Location LABORATORY [facility] - [address] [facility] [address]
--- OUTSIDE RECORDS SUMMARY | 2024-03-06 12:32 | External Medical Summary ---
Author Name Unknown Address Unknown Organization K01:LABORATORY [facility] [place] [address] [place] [address] Laboratory Report Ordering Provider Test Date Status YEIMI NICHOLS 12/22/2023 14:27:04 Final Observation Date Value Abnormality Reference (Units ) Status Albumin 12/22/2023 14:27:04 4.7 3.8-5.0 (g/dL) Final AST (Aspartate aminotransferase) 12/22/2023 14:27:04 54 Above high normal 10-35 (U/L) Final Alk Phos 12/22/2023 14:27:04 62 35-130 (U/L) Final ALT (Alanine aminotransferase) 12/22/2023 14:27:04 73 Above high normal 10-35 (U/L) Final Bilirubin, Total 12/22/2023 14:27:04 0.3 <=1.2 (mg/dL) Final Bilirubin, Direct 12/22/2023 14:27:04 <0.2 0.0-0.3 (mg/dL) Final Protein 12/22/2023 14:27:04 6.4 6.0-8.3 (g/dL) Final Performing Location LABORATORY [facility] [place] - [address] [place] [address]
--- OUTSIDE RECORDS SUMMARY | 2024-03-06 12:32 | External Medical Summary | Summary of Care ---
Author Name Unknown Organization [facility] Address [address] [place] [address] Phone [phone] Care Team Providers Care Prime Minister Name Role Phone Keagan Sanchez MD Primary Care Provider [phone] Reason for Visit * Reason Comments Outpatient Testing Encounter Details Date Type Department Care Team ([facility] st Contact Info) Description 12/22/2023 2:30 PM EDT Laboratory [facility] [phone] [address] Essential (primary) hypertension; Elevated liver enzymes; Postlaminectomy syndrome, lumbar; Shortness of breath Allergies Active Allergy Reactions Criticality Noted Date Comments Adhesive Tape 03/31/2023 Other Reaction(s): Tape- redness, paper tape/coban "ok", [id number] TAPE OK OR COBAN Clarithromycin High 03/31/2023 Other Reaction(s): Rash, diarrhea, RASH,DIARRHEA Duloxetine Hcl Flushing,Nausea/vomi tin g High 10/20/2019 Erythromycin Base Rash 03/14/2004 Orlistat Low 03/31/2023 Other Reaction(s): GI UPSET Penicillins Rash 03/14/2004 Prednisone Other (Please comment) High 10/10/2023 pancreatitis Sulfa Antibiotics Rash 03/14/2004 documented as of this encounter (statuses as of 12/23/2023) Medications Medication Sig Dispensed Refills Start Date [...] Oral Tablet (Zetia)Indications :Coronary artery disease involving [place] coronary artery of [place] heart with unstable angina pectoris (HCC) TAKE [...] as of this encounter (statuses as of 12/23/2023) Active Problems Problem Noted Date Diagnosed Date [...] hypothyroidism 04/12/2021 Coronary artery disease invo lving [place] coronary artery of [place] heart without angina pectoris 09/27/2020 Last Assessment & Plan: Has 3 stents (2 in LAD one in diagonal), placed at [facility] [address] Womack Followed by [facility] cardiology, Angela Littlejohn, next appt May 2024 [...] as of this encounter (statuses as of 12/23/2023) Resolved Problems Problem Noted Date Diagnosed Date [...] as of this encounter (statuses as of 12/23/2023) Immunizations Name Administration Dates Next Due COVID-19 [...] encounter Miscellaneous Notes * Addendum Note - Heriberto Whitfield MT - 12/23/2023 3:57 PM EDTAddended by: HERIBERTO WHITFIELD on: 12/23/2023 03:57 PM Modules accepted: Orders documented in this encounter Plan of Treatment Upcoming Encounters Date Type Department Care Team (Late st Contact Info) Description 12/29/2023 12:30 PM EDT Home Visit [facility] [address] [place] [address] Nika Guevara RN [address] [place] [address] 12/30/2023 10:00 AM EDT Office Visit Neurosurgery, [facility] [address] [place] [address] Niranjan Brown MD [address] [place] [address] 01/08/2024 1:00 PM EDT Office Visit Gastroenterology, [facility] [address] [facility] [address] Rachael Tavarez CR[facility] [address] 02/11/2024 10:30 AM EST Telemedicine [facility] [address] [place] [address] Oriana Isaacs PA-C [address] [place] [address] Edith Garcia, [facility] Glycerin Operator [address] [place] [address] 06/07/2024 11:00 AM EDT Office Visit Cardiology [address] [place] [phone] Angela Littlejohn CRNP [address] [place] [address] 06/21/2024 10:40 AM EDT Office Visit Family Practice [facility] [address] [place] [phone] Keagan Sanchez MD [address] [place] [address] 08/09/2024 10:00 AM EDT Office Visit [place] [facility] [place] [address] [place] [phone] Sami Angelo DO [address] [place], [place] [phone] 10/07/2024 2:40 PM EDT Office Visit Dermatology [facility] [address] [place] [phone] Alden Ann PA-C [address] [place], [place] [phone] 11/25/2024 11:00 AM EDT Office Visit Neurology [facility] [address] [place] [address] Kelly Waddell PA-C [address] [place] [address] Pending Results Name Type Priority Associated Diagnoses Date /Time PAIN MANAGEMENT DRUG PANEL, URINE W/ INTERPRETATION Lab Routine Postlaminectomy syndrome, lumbar 12/22/2023 2:27 PM EDT TRAMADOL, URINE CONFIRMATION Lab Routine Postlaminectomy syndrome, lumbar 12/22/2023 2:27 PM EDT Scheduled Orders Name Type Priority Associated Diagnoses Orde r Schedule TRAMADOL, URINE CONFIRMATION Lab Routine Postlaminectomy syndrome, lumbar Expected: 12/23/2023, Expires: 12/22/2024 Scheduled Procedures Name Priority Associated Diagnoses Date/Ti [...] D LEVEL ONCE IN A LIFETIME-USE SMARTSET# [id number] Completed 01/28/2022, 02/21/2015, 12/30/2011 RETIRED - COLONOSCOPY-EVERY [...] this encounter Medical Devices Implanted Type Area Painter Chassis Device Identifier Shelf Expiration Date Model / Serial / Lot Medtronic-05/27/2023 Implanted: (Quantity not on file) Neurostimulator [employer] : NEUROLOGIC PAIN 05/26/2049 [id number] / / [id number] Screw Jami Lacie 3 Ti Set - [id number] Implanted:Qt y: 6 on 03/10/2012 at OR [facility] Bilateral : Spine Lumbar LEVON : SPINE [id number] / / Screw Lacie Pa Ti 6.5x50mm - [id number] Implanted:Qt y: 4 on 03/10/2012 at OR [facility] Bilateral : Spine Lumbar LEVON : SPINE [id number] / / Levon Xia3 7.0 X 40mm Screws Implanted:Qt y: 2 on 03/10/2012 at OR [facility] Bilateral : Spine Lumbar [id number] / / Shaun Lacie 3 Ti 6x70mm - [id number] Implanted:Qt y: 1 on 03/10/2012 at OR [facility] N/A: Spine Lumbar LEVON : SPINE [id number] / / Shaun Lacie 3 Ti Max 6x80mm - [id number] Implanted:Qt y: 1 on 03/10/2012 at OR [facility] N/A: Spine Lumbar LEVON : SPINE [id number] / / 9 X 25 X 4 - 8 Avs Wedge Nose Cage Implanted:Qt y: 1 on 03/10/2012 at OR [facility] N/A: Spine Lumbar [id number] / / Stent Synergy Xd Mr 2.83h02aa - [id number] Implanted:Qt y: 1 on 09/20/2020 at CARDIAC LABS [facility] Trigence [id number] 04/18/2022 [id number] / / [id number] Stent Synergy Xd Mr 2.53d88ry - [id number] Implanted:Qt y: 1 on 09/20/2020 at CARDIAC LABS [facility] Trigence [id number] 04/25/2022 [id number] / / [id number] Screw Locking 4.5mm 15mm - [id number] Implanted:Qt y: 1 on 07/11/2022 by Sami Angelo DO at OR [facility] Right: Shoulder [employer] 11/22/2025 108-4515 / / [id number] Bseplate Jasmeet Cmntlss W Scrw - [id number] Implanted:Qt y: 1 on 07/11/2022 by Sami Angelo DO at [facility] Right: Shoulder [employer] 03/24/2027 105-0029 / / [id number] Glenosphere Rev Thee W Scrw - [id number] Implanted:Qt y: 1 on 07/11/2022 by Sami Angelo DO OR [facility] Right: Shoulder [employer] 04/24/2027 105-3610 / / [id number] Screw Locking 4.5mm 15mm - [id number] Implanted:Qt y: 1 on 07/11/2022 by Sami Angelo DO at OR [facility] Right: Shoulder [employer] 03/24/2027 108-4515 / / [id number] Screw Locking 4.5mm 20mm - [id number] Implanted:Qt y: 1 on 07/11/2022 by Sami Angelo DO OR [facility] Right: Shoulder [employer] 03/24/2027 108-4520 / / [id number] Humelock Ii Stem Ta6v Size 12 Cementless Implanted:Qt y: 1 on 07/11/2022 by Sami Angelo DO OR [facility] Right: Shoulder [employer] 10/22/2026 [id number] / / [id number] Cortical Screw Ta6v, 5mm, L. 24mm Implanted:Qt y: 1 on 07/11/2022 by Sami Angelo DO at OR [facility] Right: Shoulder [employer] 09/22/2023 107-4524 / / [id number] Humeral Cup 135/145 Degree, Standard, 36/+6 Implanted:Qt y: 1 on 07/11/2022 by Sami Angelo DO at OR [facility] Right: Shoulder 02/21/2025 313-0706 / / [id number] Screw Locking 4.5mm 20mm - [id number] Implanted:Qt y: 1 on 07/11/2022 by Sami Angelo DO at OR [facility] Right: Shoulder [employer] 03/24/2027 108-4520 / / [id number] documented as of this encounter Procedures Procedure Name Priority Date/Time Associated Diagnosis Comments RENAL FUNCTION PANEL Routine 12/22/2023 2:27 PM EDT Shortness of breath HEPATIC FUNCTION PANEL Routine 12/22/2023 2:27 PM EDT Elevated liver enzymes ALBUMIN / CREATININE RATIO, URINE Routine 12/22/2023 2:27 PM EDT Essential (primary) hypertension documented in this encounter Results * (ABNORMAL) RENAL FUNCTION PANEL (12/22/2023 2:27 PM EDT) BUN 13 6 - 20 mg/dL 12/23/2023 3:47 AM EDT [facility] CREATININE 0.9 0.5 - 1.0 mg/dL 12/23/2023 3:47 AM EDT [facility] EGFR 71 >=60 mL/min 12/23/2023 3:47 AM EDT [facility] Comment:eGFR is calculated b ased on the CKD-EPI 2020 equation. SODIUM 132(L) 135 - 146 mmol/L 12/23/2023 3:47 AM EDT [facility] POTASSIUM 4.3 3.5 - 5.1 mmol/L 12/23/2023 3:47 AM EDT [facility] CHLORIDE 95(L) 98 - 107 mmol/L 12/23/2023 3:47 AM EDT [facility] CO2 24 22 - 32 mmol/L 12/23/2023 3:47 AM EDT [facility] ANION GAP 13 7 - 15 mmol/L 12/23/2023 3:47 AM EDT [facility] GLUCOSE 84 70 - 120 mg/dL 12/23/2023 3:47 AM EDT [facility] CALCIUM 9.0 8.4 - 10.2 mg/dL 12/23/2023 3:47 AM EDT [facility] Albumin 4.5 3.8 - 5.0 g/dL 12/23/2023 3:47 AM EDT [facility] Phosphorus 5.8(H) 2.5 - 4.8 mg/dL 12/23/2023 3:47 AM EDT [facility] Blood Venous blood specimen / Unknown Venipuncture / Unknown 12/22/2023 2:27 PM EDT 12/22/2023 2:27 PM EDT Keagan Sanchez MD LAB BLOOD ORDERABLES Performing Organization Address [facility] Co de Phone Number LABORATORY [facility] [address] [place] [address] * (ABNORMAL) HEPATIC FUNCTION PANEL (12/22/2023 2:27 PM EDT) Albumin 4.7 3.8 - 5.0 g/dL 12/23/2023 3:50 AM EDT [facility] AST 54(H) 10 - 35 U/L 12/23/2023 [...] 8.3 g/dL 12/23/2023 3:50 AM EDT LABORATORY C Blood Venous blood specimen / Unknown Venipuncture / Unknown 12/22/2023 2:27 PM EDT 12/22/2023 2:27 PM EDT Keagan Sanchez MD LAB BLOOD ORDERABLES Performing Organization Address [facility]/ZIP Co de Phone Number LABORATORY [facility] [address] [place] [address] * ALBUMIN / CREATININE RATIO, URINE (12/22/2023 2:27 PM EDT) Albumin, Random Urine <1.20 mg/dL 12/22/2023 10:55 PM EDT [facility] Creatinine, Random Urine 32 mg/dL 12/22/2023 10:55 PM EDT [facility] Albumin / Creatinine Ratio, Urine Uninterpretable Albumin/Creatinine ratio due to very low albumin and creatinine values. <30 mg/g Creat 12/22/2023 10:55 PM EDT LABORATORY [facility] Urine Urine specimen / Unknown Non-blood Collection / Unknown 12/22/2023 2:27 PM EDT 12/22/2023 2:27 PM EDT Narrative LABORATORY [facility] - 12/22/2023 10:55 PM EDT Normal: <30 mg/g creatinine High: 30-300 mg/g creatinine Very High: >300 mg/g creatinine Nephrotic: >2200 mg/g creatinine Keagan Sanchez MD LAB URINE ORDERABLES LABORATORY [facility] [address] [place] [address] documented in this encounter Visit Diagnoses Diagnosis Essential (primary) [...] Pace Spouse Health Care Agent Care Teams Prime Minister Relationship Specialty Start Date End Date Keagan Sanchez MD [address] [place] [id number] PCP - General Family Medicine 10/07/23 documented as of this encounter
--- OUTSIDE RECORDS SUMMARY | 2024-03-06 12:32 | External Medical Summary ---
Author Name Unknown Address Unknown Organization K1G:LABORATORY [facility] - [address] [place] [id number] Laboratory Report Ordering Provider Test Date Status TESSAMERRILL 12/24/2023 18:19:04 Final Observation Date Value Abnormality Reference (Units ) Status TSH 12/24/2023 18:19:04 5.00 Above high normal 0. 27-4.20 (uIU/mL) Final Performing Location [facility] [address] [facility] [address]
--- OUTSIDE RECORDS SUMMARY | 2024-03-06 12:32 | External Medical Summary ---
Author Name Unknown Address Unknown Organization K1G:LABORATORY [facility] - [address] [place] [phone] Laboratory Report Ordering Provider Test Date Status MERRILL ZARATE 12/24/2023 19:10:51 Final Observation Date Value Abnormality Reference (Units ) Status Color of Urine by Auto 12/24/2023 19:10:51 Yellow Light Yellow, Yellow, Dark Yellow Final Clarity, Urine 12/24/2023 19:10:51 Clear Clear Final Glucose [Mass/volume] in Urine by Automated test strip 12/24/2023 19:10:51 Negative Negative (mg/dL) Final Bilirubin.total [Presence] in Urine by Automated test strip 12/24/2023 19:10:51 Negative Negative Final Ketones [Mass/volume] in Urine by Automated test strip 12/24/2023 19:10:51 Negative Negative (mg/dL) Final Specific gravity, Urine 12/24/2023 19:10:51 1.012 1.003-1.030 Final Hemoglobin [Presence] in Urine by Automated test strip 12/24/2023 19:10:51 Negative Negative Final pH, Urine 12/24/2023 19:10:51 6.0 5.0-7.5 (Units) Final Protein [Mass/volume] in Urine by Automated test strip 12/24/2023 19:10:51 Negative Negative (mg/dL) Final Urobilinogen [Mass/volume] in Urine by Automated test strip 12/24/2023 19:10:51 0.2 0.2, 1.0 (mg/dL) Final Nitrite [Presence] in Urine by Automated test strip 12/24/2023 19:10:51 Negative Negative Final Leukocyte esterase [Presence] in Urine by Automated test strip 12/24/2023 19:10:51 Trace Abnormal Negative Final RBC, Urine 12/24/2023 19:10:51 0-2 0-2 (/HPF) Final WBC, Urine 12/24/2023 19:10:51 3-5 Abnormal 0-2 (/HPF) Final Bacteria [#/area] in Urine sediment by Microscopy high power field 12/24/2023 19:10:51 151-200 Abnormal 0-25 (/HPF) Final Performing Location LABORATORY [facility] - [address] [facility] [phone]
--- OUTSIDE RECORDS SUMMARY | 2024-03-06 12:32 | External Medical Summary | Summary of Care ---
Author Name Unknown Organization [facility] Address [address] [place] [address] Phone [phone] Care Team Providers Care Machine Lay Out Worker Name Role Phone Keagan Sanchez MD Primary Care Provider [phone] Reason for Visit * Reason Onset Date Comments Advice 12/19/2023 Encounter Details Date Type Department Care Team (Late st Contact Info) Description 12/19/2023 Telephone [facility], [place] [address] [place] [address] Services, [facility] [address] [place] [address] Advice Allergies Active Allergy Reactions Criticality Noted Date Comments Adhesive Tape 03/31/2023 Other Reaction(s): Tape- redness, paper tape/coban "ok", [id number] TAPE OK OR COBAN Clarithromycin High 03/31/2023 Other Reaction(s): Rash, diarrhea, RASH,DIARRHEA Duloxetine Hcl Flushing,Nausea/vomi tin g High 10/20/2019 Erythromycin Base Rash 03/14/2004 Orlistat Low 03/31/2023 Other Reaction(s): GI UPSET Penicillins Rash 03/14/2004 Prednisone Other (Please comment) High 10/10/2023 pancreatitis Sulfa Antibiotics Rash 03/14/2004 documented as of this encounter (statuses as of 12/19/2023) Medications Medication Sig Dispensed Refills Start Date [...] Pain, Chest. 25 Tablet 1 03/27/2023 Active amLODIPine Besylate 5 MG Oral Tablet (Norvasc) [...] Active Additional Information Patient not taking.Reported on 12/19/2023 Metoprolol Succinate ER 25 MG Oral Tablet [...] Active Additional Information Patient not taking.Reported on 12/19/2023 hydrOXYzine HCl 50 MG Oral Tablet Take 1 Tablet by mouth 3 times a day as needed for Anxiety (hyperventilation) . 30 Tablet 09/12/2023 Active Additional Information Patient not taking.Reported on 12/19/2023 Baclofen 20 MG Oral Tablet TAKE ONE [...] severe constipation 237 mL 1 11/03/2023 Active Additional Information Patient not taking.Reported on 11/19/2023 metFORMIN HCl 500 MG Oral Tablet (Glucophage) Take 1 Tablet by mouth 2 times a day with morning and evening meals. 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 90 Tablet 12/19/2023 Active Amitriptyline HCl 50 MG Oral Tablet [...] before bedtime. 60 Tablet 2 12/19/2023 Active documented as of this encounter (statuses as of 12/19/2023) Active Problems Problem Noted Date Diagnosed Date [...] hypothyroidism 04/12/2021 Coronary artery disease invo lving ninilchik coronary artery of ninilchik heart without angina pectoris 09/27/2020 Last Assessment & Plan: Has 3 stents (2 in LAD one in diagonal), placed at [facility] [place] [address] Womack Followed by [facility] cardiology, Angela Littlejohn, next appt May 2024 [...] as of this encounter (statuses as of 12/19/2023) Resolved Problems Problem Noted Date Diagnosed Date [...] as of this encounter (statuses as of 12/19/2023) Immunizations Name Administration Dates Next Due COVID-19 [...] you got the money to buy more. Never true 03/05/20 22 Within the past 12 months, t he food you bought just didn't last and you didn't have money to get more. Never true 03/05/2022 Personal Safety Answer Date Recorded Do you feel unsafe or have concerns for your saf ety? No 08/24/2023 Do you have concerns for you r family's safety? (Household - for ages 0-17 years) Not on file 08/24/2023 Utilities Answer Date Recorded Do you have trouble paying y our heating, water, or electric bill? No 08/24/2023 Is your family able to pay t he heat, water, or electric bill? (Household - for ages 0-17 years) Not on file 08/24/2023 Does your family have access to good internet? (Household - for ages 0-17 years) Not on file 08/24/2023 Social Connections Answer Date Recorded How often do you feel lonely or isolated from those around you? (Adult - for ages 18 years and over) Not on file 09/09/2023 Transportation Needs Answer Date Record ed READ ONLY Do you have troubl e getting a ride to medical visits or work? Never True 08/24/2023 Does your family have a hard time getting a ride to doctors visits? (Household - for ages 0-17 years) Not on file 08/24/2023 Has lack of transportation k ept you from medical appointments, meetings, work, or from getting things needed for daily living? Check all that apply. (Adult - for ages 18 years and over) Not on file 08/24/2023 Do you (or your family) have trouble finding or paying for a ride (transportation)? (Household - for ages 0-17 years) Not on file 08/24/2023 Housing Stability Answer Date Recorded Do you currently live in a s helter or have no steady place to sleep at night? (Adult - for ages 18 years and over) Not on file 08/24/2023 READ ONLY Do you think you a re at risk of becoming homeless? No 08/24/2023 Does your family worry about paying for your home or becoming homeless? (Household - for ages 0-17 years) Not on file 0 08/24/2023 Are you homeless or worried that you might be in the future? (Adult - for ages 18 years and over) Not on file Are you (or your family) jeffrey eless or worried that you might be in the future? (Household - for ages 0-17 years) Not on file Food Insecurity Answer Date Recorded Do you need food for this week? No 08/24/2023 Are you able to get enough f ood for your family? (Household - for ages 0-17 years) Not on file 08/24/2023 Does your family need food t his week? (Household - for ages 0-17 years) Not on file 08/24/2023 Do you always have enough fo od for your family? (Household - for ages 0-17 years) Not on file 08/24/2023 Sex and Gender Information Value Date Recorded [...] encounter Miscellaneous Notes * Telephone Encounter - Irasema Lin OSA - 12/19/2023 3:11 PM EDT Outgoing call to patient, spoke with Shalini and advised that we rescheduled her appointment to 12/30/23 at 10am. Shalini was appreciative and thanked us for getting back to her so quickly. * Telephone Encounter - Consuelo Neal OSA - 12/19/2023 2:01 PM EDT Neuroscience Phone Call Form- Requested Information from caller: Who is calling patient Provider patient is established with: Juan What is the concern or issue they are having: Pt calling to get a sooner appt from her ref. Pt also stated that she is having bladder issues and constipation that is not listed on her ref. Asking for sooner appt she has 1st avail on [facility]. How long has the issue been going on: Any additional details to add: no Phone number for nurse to call back: [phone] Are forms needed? no Medication Refill? no Verify Pharmacy information is correct. Form to be used for established patients only (not new patients) Clinic has 24-48 hours to respond to caller. If caller is calling back before timeframe with any changes in condition/issues reported, update TEand re-route to appropriate pool If caller is calling back before timeframe- update TE- no need to re-route Peds Neurology Pool- [facility] Neuro Community Program Assistant- [phone] (All messages get sent to the [facility]) Neurology Pool Numbers- [place] patients - follow normal process Ops req [facility] Neurology ([place])- [id number] Ops req [place] Neurology ([place]- [facility] and [facility] clinics Only)- [id number] Neurosurgery Pool Numbers- [place] patients- follow normal process Ops req Neurosurgery [facility] ([place])- [id number] Ops req Neurosurgery [facility] ([place] Only) [id number] documented in this encounter Plan of Treatment Upcoming Encounters Date Type Department Care Team (Late st Contact Info) Description 12/22/2023 1:40 PM EDT Office Visit [address] [address] Keagan Sanchez MD [address] [place] [address] 12/29/2023 12:30 PM EDT Home Visit [facility] [address] [place] [address] Nika Guevara RN [address] [place] [address] 12/30/2023 10:00 AM EDT Office Visit Neurosurgery, [place] [address] [place] [address] Niranjan Brown MD [address] [place] [address] 01/08/2024 1:00 PM EDT Office Visit Gastroenterology, [facility] [address] [facility] [place] [address] Rachael Tavarez CRNP [address] [facility] [place] [address] 02/11/2024 10:30 AM EST Telemedicine [facility] [place] [address] [place] [address] Oriana Isaacs PA-C [address] [place] [address] Edith Garcia, Community Health Ssrs Developer [address] [place] [address] 06/07/2024 11:00 AM EDT Office Visit Cardiology [facility] 68 [facility] [address] [place] [address] Angela Littlejohn CRNP [address] [place] [address] 08/09/2024 10:00 AM EDT [facility] [address] [place] [address] Sami Angelo DO [address] [place] [address] 10/07/2024 2:40 PM EDT Office Visit Dermatology [facility] 68 [place] [address] Alden Ann PA-C [address] [place] [address] 11/25/2024 11:00 AM EDT Office Visit Neurology [facility] [address] [facility] [place] [address] Kelly Waddell PA-C [facility] [place] [address] Scheduled Procedures Name Priority Associated Diagnoses Date/Ti [...] D LEVEL ONCE IN A LIFETIME-USE SMARTSET# 13382 Completed 01/28/2022, 02/21/2015, 12/30/2011 RETIRED - COLONOSCOPY-EVERY [...] this encounter Medical Devices Implanted Type Area Wheel Setter Device Identifier Shelf Expiration Date Model / Serial / Lot Medtronic-05/27/2023 Implanted: (Quantity not on file) Neurostimulator MEDTRONIC : NEUROLOGIC PAIN 05/26/2049 [id number] / / [id number] Screw Jami Lacie 3 Ti Set - [id number] Implanted:Qt y: 6 on 03/10/2012 at [place] [facility] Bilateral : Spine Lumbar LEVON : SPINE [id number] / / Screw Lacie Pa Ti 6.5x50mm - [id number] Implanted:Qt y: 4 on 03/10/2012 at OR [facility] Bilateral : Spine Lumbar LEVON : SPINE [id number] / / Baldwin Xia3 7.0 X 40mm Screws Implanted:Qt y: 2 on 03/10/2012 at OR [facility] Bilateral : Spine Lumbar [id number] / / Shaun Lacie 3 Ti 6x70mm - [id number] Implanted:Qt y: 1 on 03/10/2012 at OR [facility] N/A: Spine Lumbar LEVON : SPINE [id number] / / Shaun Lacie 3 Ti Max 6x80mm - [id number] Implanted:Qt y: 1 on 03/10/2012 at OR [facility] N/A: Spine Lumbar LEVON : SPINE [id number] / / 9 X 25 X 4 - 8 Avs Wedge Nose Cage Implanted:Qt y: 1 on 03/10/2012 at OR [facility] N/A: Spine Lumbar [id number] / / Stent Synergy Xd Mr 2.44x20gf - [id number] Implanted:Qt y: 1 on 09/20/2020 at [facility] Sunpreme [id number] 04/18/2022 [id number] / / [id number] Stent Synergy Xd Mr 2.60j20ut - [id number] Implanted:Qt y: 1 on 09/20/2020 at [facility] Sunpreme [id number] 04/25/2022 [id number] 2220 / / [id number] Screw Locking 4.5mm 15mm - [id number] Implanted:Qt y: 1 on 07/11/2022 by Sami Angelo DO at OR [facility] Right: Shoulder [employer] 11/22/2025 108-4515 / / [id number] Bseplate Jasmeet Cmntlss W Scrw - [id number] Implanted:Qt y: 1 on 07/11/2022 by Sami Angelo DO at OR [facility] Right: Shoulder [employer] 03/24/2027 105-0029 / / [id number] Glenosphere Rev Thee W Scrw - [id number] Implanted:Qt y: 1 on 07/11/2022 by Sami Angelo DO OR [facility] Right: Shoulder [employer] 04/24/2027 105-3610 / / [id number] Screw Locking 4.5mm 15mm - [id number] Implanted:Qt y: 1 on 07/11/2022 by Sami Angelo DO at OR [facility] Right: Shoulder [employer] 03/24/2027 108-4515 / / [id number] Screw Locking 4.5mm 20mm - [id number] Implanted:Qt y: 1 on 07/11/2022 by Sami Angelo DO at OR [facility] Right: Shoulder [employer] 03/24/2027 108-4520 / / [id number] Humelock Ii Stem Ta6v Size 12 Cementless Implanted:Qt y: 1 on 07/11/2022 by Sami Angelo DO at OR [facility] Right: Shoulder [employer] 10/22/2026 [id number] / / [id number] Cortical Screw Ta6v, 5mm, L. 24mm Implanted:Qt y: 1 on 07/11/2022 by Sami Angelo DO at OR [facility] Right: Shoulder [employer] 09/22/2023 107-4524 / / [id number] Humeral Cup 135/145 Degree, Standard, 36/+6 Implanted:Qt y: 1 on 07/11/2022 by Sami Angelo, DO at OR [facility] Right: Shoulder 02/21/2025 313-0706 / / [id number] Screw Locking 4.5mm 20mm - [id number] Implanted:Qt y: 1 on 07/11/2022 by Sami Angelo, DO at OR [facility] Right: Shoulder [employer] 03/24/2027 108-4520 [...] Agents on File Name Relationship Healthcare Agent [facility] p Communication Donny Pace Spouse Health Care Agent Care Teams Machine Lay Out Worker Relationship Specialty Start Date End Date Keagan Sanchez MD [address] [place] [address] [place] [id number] PCP - General Family Medicine 10/07/23 documented as of this encounter
--- OUTSIDE RECORDS SUMMARY | 2024-03-06 12:32 | External Medical Summary ---
Author Name Unknown Address Unknown Organization K01:[facility] - [address] [facility] [address] Laboratory Report Ordering Provider Test Date Status MERRILL ZARATE 12/24/2023 19:10:00 Final <10,000 colonies/ml mixed no rmal siobhan Observation Date Value Abnormality Reference (Units ) Status Bacteria identified in Specimen by Culture 12/24/2023 19:10:00 [id number]^KLEBSIELL A PNEUMONIAE Abnormal Final >100,000 colonies/mL Klebsie lla pneumoniae Performing Location [facility] - [address] [facility] [address] Ordering Provider Test Date Status MERRILL ZARATE 12/24/2023 19:10:00 Final Observation Date Value Abnormality Reference (Units ) Status Ampicillin + Sulbactam 12/24/2023 19:10:00 4 Susceptible Final Cefazolin 12/24/2023 19:10:00 <=4 Susceptible Final Cefepime susceptibility 12/24/2023 19:10:00 <=1 Susceptible Final Ceftriaxone suceptibility 12/24/2023 19:10:00 <=1 Susceptible Final Ciprofloxacin 12/24/2023 19:10:00 <=0.25 Susceptible Final Due to serious side effects, the FDA has advised against using Ciprofloxacin to treat uncomplicated UTIs and respiratory tract infections unless there are no alternative treatment options. Gentamicin susceptibility 12/24/2023 19:10:00 <=1 Susc eptible Final Nitrofurantoin susceptibility 12/24/2023 19:10:00 64 Intermediate Final Piperacillin + Tazobactamsusceptibility 12/24/2023 19:10:00 <=4 Susceptible Final TMP-SMZ susceptibility 12/24/2023 19:10:00 <=20 Suscept ible Final Test: Culture, Urine, Quanti tative
Specimen Source: Urine, Unspecified
Specimen Type: Urine
Specimen Date: 12/24/2023 191
Result Date: 12/27/2023 1353
Result Status: Final result
Abnormal: Yes
Resulting Lab: [facility]
[address]
[facility] [address]

CULTURE

>100,000 colonies/mL Klebsiella pneumoniae (Abnormal)

<10,000 colonies/ml mixed normal siobhan

SUSCEPTIBILITY

Klebsiella
pneumoniae
METHOD MICROBROTH DILUTIONS

AMPICILLIN/SULBACTAM 4 Susceptible
CEFAZOLIN <=4 Susceptible
CEFEPIME <=1 Susceptible
CEFTRIAXONE <=1 Susceptible
CIPROFLOXACIN <=0.25 Susceptible
[1]
GENTAMICIN <=1 Susceptible
NITROFURANTOIN 64 Intermediate
PIPERACILLIN TAZOBACTAM <=4 Susceptible
TRIMETH/SULFAMETHOXAZOLE <=20 Susceptible

[1] Due to serious side effects, the FDA has advised against using
Ciprofloxacin to treat uncomplicated UTIs and respiratory tract infections
unless there are no alternative treatment options.

null Performing Location [facility]ORY [facility] - [address] [facility] [address]
--- OUTSIDE RECORDS SUMMARY | 2024-03-06 12:32 | External Medical Summary | Summary of Care ---
Author Name Unknown Organization [facility] Address [address] [place] [address] Phone [phone] Care Team Providers Care Pill Packer Name Role Phone Keagan Sanchez MD Primary Care Provider [phone] Reason for Visit * Reason Onset Date Comments Advice 12/19/2023 Encounter Details Date Type Department Care Team (Late st Contact Info) Description 12/19/2023 Telephone [facility] [place] [address] [place] [address] Services, [facility] [address] [place] [address] Advice Allergies Active Allergy Reactions Criticality Noted Date Comments Adhesive Tape 03/31/2023 Other Reaction(s): Tape- redness, paper tape/coban "ok", [id number] TAPE OK OR COBAN Clarithromycin High 03/31/2023 [...] Oral Tablet (Zetia)Indications :Coronary artery disease involving algaaciq coronary artery of algaaciq heart with unstable angina pectoris (HCC) TAKE [...] hypothyroidism 04/12/2021 Coronary artery disease invo lving algaaciq coronary artery of algaaciq heart without angina pectoris 09/27/2020 Last Assessment [...] encounter Miscellaneous Notes * Telephone Encounter - Consuelo Neal OSA [...] Phone number for nurse to call back: [phone] Are forms needed? no Medication Refill? no Verify Pharmacy information is correct. Form to be used for established patients only (not new patients) Clinic has 24-48 hours to respond to caller. If caller is calling back before timeframe with any changes in condition/issues reported, update TEand re-route to appropriate pool If caller is calling back before timeframe- update TE- no need to re-route Ped Neurology Pool- [facility] Neuro Superintendent [place]- [phone] (All messages get sent to the [facility]) Neurology Pool Numbers- [place] and [facility] patients - follow normal process Ops req [facility] ([place])- [id number] Ops req [place] Neurology ([place]- [facility] and [facility] clinics Only)- [id number] Neurosurgery Pool Numbers- [place] patients- follow normal process Ops req Neurosurgery [facility] ([place])- [id number] Ops req Neurosurgery [facility] ([place] Only) [id number] documented in this encounter Plan of Treatment Upcoming Encounters Date Type Department Care Team ([facility] st Contact Info) Description 12/22/2023 1:40 PM EDT Office Visit [facility] [address] [place] [address] Keagan Sanchez MD [address] [place] [address] 12/29/2023 12:30 PM EDT Home Visit [facility], [facility] [address] [place] [address] Nika Guevara RN [address] [place] [address] 01/08/2024 1:00 PM EDT Office Visit Gastroenterology, [facility] [address] [facility] [place] [address] Rachael Tavarez CRNP [address] [facility] [place] [address] 02/11/2024 10:30 AM EST Telemedicine [facility], [facility] [address] [place] [address] Oriana Isaacs PA-C [address] [facility] [place] [address] Edith Garcia, Community Health Flight Kitchen Manager [address] [place] [address] 02/12/2024 2:45 PM EST Office Visit Neurosurgery, [place] [address] [place] [address] Josesito Martinez MD [address] [place] [address] 06/07/2024 11:00 AM EDT Office Visit Cardiology [facility] [address] [facility] [address] [place] [address] Angela Littlejohn CRNP [address] [place] [address] 08/09/2024 10:00 AM EDT Office Visit Orthopaedics [facility] [address] [place] [address] Sami Angelo DO [address] [place] [address] 10/07/2024 2:40 PM EDT Office Visit Dermatology [facility] [address] [place] [address] Alden Ann PA-C [address] [place] [address] 11/25/2024 11:00 AM EDT Office Visit Neurology [facility] [address] [facility] [place] [address] Kelly Waddell PA-C [address] [place] [address] Scheduled Procedures Name Priority Associated Diagnoses Date/Ti [...] D LEVEL ONCE IN A LIFETIME-USE SMARTSET# 15610 Completed 01/28/2022, 02/21/2015, 12/30/2011 RETIRED - COLONOSCOPY-EVERY [...] this encounter Medical Devices Implanted Type Area Brokerage Purchase And Sale Clerk Device Identifier Shelf Expiration Date Model / Serial / Lot Medtronic-05/27/2023 Implanted: (Quantity not on file) Neurostimulator MEDTRONIC : NEUROLOGIC PAIN 05/26/2049 [id number] / / [id number] Screw Jami Lacie 3 Ti Set - [id number] Implanted:Qt y: 6 on 03/10/2012 at OR [facility] Bilateral : Spine Lumbar LEVON : SPINE [id number] / / Screw Lacie Pa Ti 6.5x50mm - [id number] Implanted:Qt y: 4 on 03/10/2012 at OR [facility] Bilateral : Spine Lumbar LEVON : SPINE [id number] / / [place] Xia3 7.0 X 40mm Screws Implanted:Qt y: 2 on 03/10/2012 at OR [facility] Bilateral : Spine Lumbar [id number] / / Shaun Lacie 3 Ti 6x70mm - [id number] Implanted:Qt y: 1 on 03/10/2012 at OR [facility] N/A: Spine Lumbar LEVON : SPINE [id number] / / Shaun Lacie 3 Ti Max 6x80mm - [id number] Implanted:Qt y: 1 on 03/10/2012 at OR [facility] N/A: Spine Lumbar LEVON : SPINE [id number] / / 9 X 25 X 4 - 8 Avs Wedge Nose Cage Implanted:Qt y: 1 on 03/10/2012 at OR [facility] N/A: Spine Lumbar [id number] / / Stent Synergy Xd Mr 2.03g10si - [id number] Implanted:Qt y: 1 on 09/20/2020 at [facility] Solio [id number] 04/18/2022 [id number] / / [id number] Stent Synergy Xd Mr 2.78k17hz - [id number] Implanted:Qt y: 1 on 09/20/2020 at [facility] Solio [id number] 04/25/2022 [id number] 2220 / / [id number] Screw Locking 4.5mm 15mm - [id number] Implanted:Qt y: 1 on 07/11/2022 by Sami Angelo DO at OR [facility] Right: Shoulder [employer] 11/22/2025 108-4515 / / [id number] Bseplate Jasmeet Cmntlss W Scrw - [id number] Implanted:Qt y: 1 on 07/11/2022 by Sami Angelo DO at OR [facility] Right: Shoulder [employer] 03/24/2027 105-0029 / / [id number] Glenosphere Rev Thee W Scrw - [id number] Implanted:Qt y: 1 on 07/11/2022 by Sami Angelo DO at OR [facility] Right: Shoulder [employer] 04/24/2027 105-3610 / / [id number] Screw Locking 4.5mm 15mm - [id number] Implanted:Qt y: 1 on 07/11/2022 by Sami Angelo DO at OR [facility] Right: Shoulder [employer] 03/24/2027 108-4515 / / [id number] Screw Locking 4.5mm 20mm - [id number] Implanted:Qt y: 1 on 07/11/2022 by Sami [...] / [id number] Screw Locking 4.5mm 20mm - [id number] Implanted:Qt y: 1 on 07/11/2022 by Sami [...] Communication Donny Pace Spouse Health Care Agent [phone] (Mobile) Care Teams Pill Packer Relationship Specialty Start Date End Date Keagan Sanchez MD [address] [place] [address] PCP - General Family Medicine 10/07/23 documented as of this encounter
--- OUTSIDE RECORDS SUMMARY | 2024-03-06 12:32 | External Medical Summary ---
Author Name Unknown Address Unknown Organization [id number]:LABORATORY [facility] [place] - [facility] [address] [address] Laboratory Report Ordering Provider Test Date Status YEIMI NICHOLS 12/22/2023 14:27:12 Final Observation Date Value Abnormality Reference (Units ) Status BUN 12/22/2023 14:27:12 13 6-20 (mg/dL) Final Creatinine 12/22/2023 14:27:12 0.9 0.5-1.0 (mg/dL) Final Glomerular filtration rate/1.73 sq M.predicted [Volume Rate/Area] in Serum, Plasma or Blood by Creatinine-based formula (CKD-EPI) 12/22/2023 14:27:12 71 >=60 (mL/min) Final eGFR is calculated based on the CKD-EPI 2020 equation. Sodium 12/22/2023 14:27:12 132 Below low normal 135 -146 (mmol/L) Final Potassium 12/22/2023 14:27:12 4.3 3.5-5.1 (m mol/L) Final Cl 12/22/2023 14:27:12 95 Below low normal 98- 107 (mmol/L) Final CO2 12/22/2023 14:27:12 24 22-32 (mmo l/L) Final Anion gap 12/22/2023 14:27:12 13 7-15 (mmol /L) Final Glucose 12/22/2023 14:27:12 84 70-120 (mg /dL) Final Calcium 12/22/2023 14:27:12 9.0 8.4-10.2 ( mg/dL) Final Albumin 12/22/2023 14:27:12 4.5 3.8-5.0 (g /dL) Final Phosphate 12/22/2023 14:27:12 5.8 Above high normal 2. 5-4.8 (mg/dL) Final Performing Location LABORATORY C - [address] [place] [address]
--- OUTSIDE RECORDS SUMMARY | 2024-03-06 12:32 | External Medical Summary ---
Author Name Unknown Address Unknown Organization [id number]:LAB[facility]ATORY [facility] [place] [address] [address] Laboratory Report Ordering Provider Test Date Status YEIMI NICHOLS 12/22/2023 14:27:04 Final Normal: <30 mg/g creatinine< br/>High: 30-300 mg/g creatinine
Very High: >300 mg/g creatinine
Nephrotic: >2200 mg/g creatinine Observation Date Value Abnormality Reference (Units) Status Albumin, Urine 12/22/2023 14:27:04 <1.20 (mg/dL) Final Creatinine, Urine 12/22/2023 14:27:04 32 (mg/dL) Final ALBUMIN/CREATININE RATIO, HIDE 12/22/2023 14:27:04 Uninterpretable Albumin/Creatinine ratio due to very low albumin and creatinine values. <30 (mg/g Creat) Final Performing Location LABORATORY [facility] [place] - [address] [place] [address]
--- OUTSIDE RECORDS SUMMARY | 2024-03-06 12:32 | External Medical Summary ---
Author Name Unknown Address Unknown Organization K1G:LABORATORY [facility] - [address] [place] [phone] Laboratory Report Ordering Provider Test Date Status MERRILL ZARATE 12/24/2023 18:19:04 Final Observation Date Value Abnormality Reference (Units ) Status BUN 12/24/2023 18:19:04 12 6-20 (mg/dL) Final Creatinine 12/24/2023 18:19:04 1.0 0.5-1.0 (mg/dL) Final Glomerular filtration rate/1.73 sq M.predicted [Volume Rate/Area] in Serum, Plasma or Blood by Creatinine-based formula (CKD-EPI) 12/24/2023 18:19:04 66 >=60 (mL/min) Final eGFR is calculated based on the CKD-EPI 2020 equation. Sodium 12/24/2023 18:19:04 128 Below low normal 135 -146 (mmol/L) Final Potassium 12/24/2023 18:19:04 3.4 Below low normal 3.5 -5.1 (mmol/L) Final Cl 12/24/2023 18:19:04 93 Below low normal 98- 107 (mmol/L) Final CO2 12/24/2023 18:19:04 21 Below low normal 22- 32 (mmol/L) Final Anion gap 12/24/2023 18:19:04 14 7-15 (mmol /L) Final Glucose 12/24/2023 18:19:04 74 70-120 (mg /dL) Final Albumin 12/24/2023 18:19:04 4.4 3.8-5.0 (g /dL) Final AST (Aspartate aminotransferase) 12/24/2023 18:19:04 63 Above high normal 10-35 (U/L) Final Alk Phos 12/24/2023 18:19:04 64 35-130 (U/ L) Final Bilirubin, Total 12/24/2023 18:19:04 0.3 <=1 .2 (mg/dL) Final Calcium 12/24/2023 18:19:04 8.6 8.4-10.2 ( mg/dL) Final Protein 12/24/2023 18:19:04 6.8 6.0-8.3 (g /dL) Final ALT (Alanine aminotransferase) 12/24/2023 18:19:04 83 Above high normal 10-35 (U/L) Final Performing Location LABORATORY [facility] - [address] [place] [phone]
--- OUTSIDE RECORDS SUMMARY | 2024-03-06 12:32 | External Medical Summary ---
Author Name Unknown Address Unknown Organization K1G:LABORATORY [facility] - [address] [place] [id number] Laboratory Report Ordering Provider Test Date Status TESSA,MERRILL 12/24/2023 18:19:04 Final Observation Date Value Abnormality Reference (Units ) Status Troponin T 12/24/2023 18:19:04 11 <=14 (ng/ L) Final Performing Location LABORATORY [facility] - [address] [place] [address] [place] [phone]
--- OUTSIDE RECORDS SUMMARY | 2024-03-06 12:32 | External Medical Summary ---
Author Name Unknown Address Unknown Organization K1G:LABORATORY [facility] - [address] [place] [id number] Laboratory Report Ordering Provider Test Date Status MERRILL ZARATE 12/24/2023 18:19:04 Final Observation Date Value Abnormality Reference (Units ) Status Lactic Acid, Whole Blood 12/24/2023 18:19:04 2.6 Above high normal 0.4-2.0 (mmol/L) Final Performing Location LABORATORY [facility] - [address] [place] [phone]
--- OUTSIDE RECORDS SUMMARY | 2024-03-06 12:32 | External Medical Summary ---
Author Name Unknown Address Unknown Organization K01:LABORATORY [facility] [place] - [address] [address] Laboratory Report Ordering Provider Test Date Status SIMONE,JALLOH 12/22/2023 14:27:04 Final Drugs that require complianc e testing:

Opioids:
Tramadol 50 mg - take 2 pills every 4-6 hours

Benzodiazepines
Other none

Cutoff Concentrations:
Drug Level
Amphetamines 500 ng/mL
Benzodiazepines 100 ng/mL
Cannabinoids 50 ng/mL
Cocaine Metabolite 150 ng/mL
Fentanyl 1 ng/mL
Hydrocodone / Hydromorphone 300 ng/mL
Methadone Metabolite 100 ng/mL
Morphine / Codeine 300 ng/mL
Oxycodone / Oxymorphone 100 ng/mL

Screening results are presumptive and can only be used for medical purposes. Confirmatory testing is available upon request. Observation Date Value Abnormality Reference (Units) Status COMPLIANCE INTERPRETATION 12/22/2023 14:27:04 Based on the medication information provided: Final COMPLIANCE INTERPRETATION 12/22/2023 14:27:04 The presence of tramadol and o-desmethyltramado l is CONSISTENT with tramadol use. Final Changed Report: Previously r eported on 12/23/2023 at 1557 EDT. See Results History in EPIC for previous versions of the report. Amphetamines, Urine screen 12/22/2023 14:27:04 Negative Negative Final Benzodiazepines, Urine screen 12/22/2023 14:27:04 Negative Negative Final Cannabinoids, Urine screen 12/22/2023 14:27:04 Negative Negative Final Cocaine Metabolite, Urine screen 12/22/2023 14:27:04 Negativ e Negative Final fentaNYL [Presence] in Urine by Screen method 12/22/2023 14:27:04 Negative Negative Final HYDROcodone [Presence] in Ur ine by Screen method 12/22/2023 14:27:04 Negative Negative Final 0-Pwqkfpflpw-4,2-Fehgqpcv-9, 3-Diphenylp yrrolidine (EDDP) [Presence] in Urine 12/22/2023 14:27:04 Negative Negative Final Opiates, Urine screen 12/22/2023 14:27:04 Negative Negative Final oxyCODONE [Presence] in Urin e by Screen method 12/22/2023 14:27:04 Negative Negative Final FORENSIC VALID INTERPRETATION 12/22/2023 14:27:04 Normal Final Creatinine, Urine 12/22/2023 14:27:04 33 (m g/dL) Final Performing Location LABORATORY [facility] [place] - [facility] [address] [facility] [address]
--- OUTSIDE RECORDS SUMMARY | 2024-03-06 12:33 | External Medical Summary | Summary of Care ---
Author Name Unknown Organization [facility] Address [address] [place] [address] Phone [phone] Care Team Providers Care Security Incident Handler Name Role Phone Keagan Sanchez MD Primary Care Provider [phone] Reason for Referral * Precert (Within 10 days (routine)) - Pending Review Specialty Diagnoses / Procedures Referred By Contac t Referred To Contact Radiology Diagnoses Postlaminectomy syndrome, lumbar Acute left-sided low back pain with left-sided sciatica Procedures MRI L SPINE WO CONTRAST Jamarcus Carreno PA-C [address] [place] [address] Referral ID Status Reason Start Date Expiration Date V isits Requested Visits Authorized [id number] Pending Review 11/20/2023 999 999 Reason for Visit * Precert (Within 10 days (routine)) - Pending Review Specialty Diagnoses / Procedures Referred By Contac t Referred To Contact Radiology Diagnoses Postlaminectomy syndrome, lumbar Acute left-sided low back pain with left-sided sciatica Procedures MRI L SPINE WO CONTRAST Jamarcus Carreno PA-C [address] [place] [address] Referral ID Status Reason Start Date Expiration Date V isits Requested Visits Authorized [id number] Pending Review 11/20/2023 999 999 Encounter Details Date Type Department Care Team (Latest Contact Info) Description 12/03/2023 7:40 AM EDT - 12/03/2023 11:59 PM EDT [facility] [place] [address] [place] [address] Arrived Discharge Disposition: Home - Self Care Allergies Active Allergy Reactions Criticality Noted Date Comments Adhesive Tape 03/31/2023 Other Reaction(s): Tape- redness, paper tape/coban "ok", [id number] TAPE OK OR COBAN Clarithromycin High 03/31/2023 Other Reaction(s): Rash, diarrhea, RASH,DIARRHEA Duloxetine Hcl Flushing,Nausea/vomi tin g High 10/20/2019 Erythromycin Base Rash 03/14/2004 Orlistat Low 03/31/2023 Other Reaction(s): GI UPSET Penicillins Rash 03/14/2004 Prednisone Other (Please comment) High 10/10/2023 pancreatitis Sulfa Antibiotics Rash 03/14/2004 documented as of this encounter (statuses as of 12/04/2023) Medications Medication Sig Dispensed Refills Start Date [...] BEDTIME 180 Tablet 3 07/25/2023 07/24/2024 Active Torsemide 10 MG Oral Tablet (Demadex)Indicatio ns:Shortness of breath Take 1 Tablet by mouth in the morning. 30 Tablet 1 08/14/2023 Active Levalbuterol HCl 1.25 MG/3ML Inhalation Nebulization [...] Oral Tablet (Zetia)Indications :Coronary artery disease involving [place] coronary artery of [place] heart with unstable angina pectoris (HCC) TAKE [...] as needed for Pain, Moderate. 90 Tablet 12/03/2023 Active documented as of this encounter (statuses as of 12/04/2023) Active Problems Problem Noted Date Diagnosed Date Drug-induced acute pancreati tis without infection or necrosis 08/24/2023 Anxiety and depression 08/24/2023 Coronary artery disease due to lipid rich plaque 08/24/2023 Neurostimulator device in situ 06/30/2023 Essential (primary) hypertension 06/16/2023 Hypothyroidism 06/16/2023 Prediabetes 03/03/2023 Overview: Per Prediabetes protocol Urinary retention 10/29/2022 Abdominal pain 10/28/2022 Diverticulitis 10/28/2022 Hypokalemia 10/28/2022 S/P reverse total shoulder arthroplasty, right 0 07/16/2022 Age-related osteoporosis wit hout current pathological fracture 03/05/2022 Personal history of fall 06/11/2021 Last Assessment [...] hypothyroidism 04/12/2021 Coronary artery disease invo lving tuluks[place] coronary artery of [place] heart without angina pectoris 09/27/2020 S/P angioplasty with stent 09/27/2020 Status post insertion of chari g-eluting stent into left anterior descending (LAD) artery 02/26/2020 Gastro-esophageal reflux disease without esophag itis 10/04/2019 Mixed hyperlipidemia 10/04/2019 Major depressive disorder, single episode, unspe cified 10/04/2019 Lumbar radiculopathy 04/23/2019 Spinal stenosis of lumbar region 04/23/2019 MEDICATION USE AGREEMENT 03/01/2019 Chronic superficial gastritis without bleeding 0 06/06/2018 Hypotonic bladder 01/18/2014 Postlaminectomy syndrome, lumbar 07/31/2010 DYSLIPIDEMIA, GOAL TO BE DETERMINED 03/08/2009 Overview: Per Lipid Taxonomy. DDD (degenerative disc disease), cervical 2008 Degeneration [...] as of this encounter (statuses as of 12/04/2023) Resolved Problems Problem Noted Date Diagnosed Date [...] as of this encounter (statuses as of 12/04/2023) Immunizations Name Administration Dates Next Due COVID-19 mRNA, LNP-s, No Pre serve, 2-Dose Series (Moderna) 01/17/2021,05/23/2020,04/17/2020 COVID-19, mRNA, LNP-s, PF, B ooster, 100mcg/0.5mg [...] Care Team (Late st Contact Info) Description 12/09/2023 10:00 AM EDT Home Visit [facility] [place] [address] [place] [address] Oriana Isaacs PA-C [address] [place] [address] 12/22/2023 1:40 PM EDT Office Visit Family [facility] [address] [place] [address] Keagan Sanchez MD [address] [place] [address] 12/29/2023 12:30 PM EDT Home Visit [facility] [place] [address] [place] [address] Nika Guevara RN [address] [facility] [place] [address] 01/08/2024 1:00 PM EDT Office Visit Gastroenterology, [facility] [address] [place] [address] Rachael Tavarez CRNP [address] [facility] [place] [address] 06/07/2024 11:00 AM EDT Office Visit Cardiology [address] [place] [address] Angela Littlejohn CRNP [address] [place] [address] 08/09/2024 10:00 AM EDT Office Visit [facility] [address] [place] [address] Sami Angelo DO [address] [place] [address] 10/07/2024 2:40 PM EDT Office Visit Dermatology [facility] [address] [place] [phone] Alden Ann PA-C [address] [facility] [place] [address] 11/25/2024 11:00 AM EDT Office Visit Neurology [facility] [place] [address] [place] [address] Kelly Waddell PA-C [address] [place] [address] Pending Results Name Type Priority Associated Diagnoses Date /Time MRI L SPINE WO CONTRAST Medical Imaging Routine Postlaminectomy syndrome, lumbar Acute left-sided low back pain with left-sided sciatica 12/03/2023 8:21 AM EDT Scheduled Procedures Name Priority Associated [...] FOR OSTEOPOROSIS (REFER TO SMARTSET #1146) 07/23/2023 COVID-19 Vaccine ( season) 2023 12/24/2021, 07/11/2021, 01/17/2021, Additional history exists DXA Scan 01/02/2024 01/01/2022, 02/22, 12/09/2011, Additional [...] D LEVEL ONCE IN A LIFETIME-USE SMARTSET# 88997 Completed 01/28/2022, 02/21/2015, 12/30/2011 RETIRED - COLONOSCOPY-EVERY [...] this encounter Medical Devices Implanted Type Area Flare Worker Device Identifier Shelf Expiration Date Model / Serial / Lot Medtronic-05/27/2023 Implanted: (Quantity not on file) Neurostimulator [employer] : NEUROLOGIC PAIN 05/26/2049 [id number] / / [id number] Screw Jami Lacie 3 Ti Set - [id number] Implanted:Qt y: 6 on 03/10/2012 at [facility] Bilateral : Spine Lumbar LEVON : SPINE [id number] / / Screw Lacie Pa Ti 6.5x50mm - [id number] Implanted:Qt y: 4 on 03/10/2012 at [facility] Bilateral : Spine Lumbar LEVON : SPINE [id number] / / [place] Xia3 7.0 X 40mm Screws Implanted:Qt y: 2 on 03/10/2012 at [facility] Bilateral : Spine Lumbar [id number] / / Shaun Lacie 3 Ti 6x70mm - [id number] Implanted:Qt y: 1 on 03/10/2012 at [facility] N/A: Spine Lumbar LEVON : SPINE [id number] / / Shaun Lacie 3 Ti Max 6x80mm - [id number] Implanted:Qt y: 1 on 03/10/2012 at [facility] N/A: Spine Lumbar LEVON : SPINE [id number] / / 9 X 25 X 4 - 8 Avs Wedge Nose Cage Implanted:Qt y: 1 on 03/10/2012 at [facility] N/A: Spine Lumbar [id number] / / Stent Synergy Xd Mr 2.40y37zr - [id number] Implanted:Qt y: 1 on 09/20/2020 at [facility] [employer] [id number] 04/18/2022 [id number] / / [id number] Stent Synergy Xd Mr 2.18i43ok - [id number] Implanted:Qt y: 1 on 09/20/2020 at [facility] [employer] [id number] 04/25/2022 [id number] / / [id number] Screw Locking 4.5mm 15mm - [id number] Implanted:Qt y: 1 on 07/11/2022 by Sami Angelo DO at [facility] Right: Shoulder [employer] 11/22/2025 [id number] / / [id number] Bseplate Jasmeet Cmntlss W Scrw - [id number] Implanted:Qt y: 1 on 07/11/2022 by Sami Angelo DO at [facility] Right: Shoulder [employer] 03/24/2027 105-0029 / / [id number] Glenosphere Rev Thee W Scrw - [id number] Implanted:Qt y: 1 on 07/11/2022 by Sami Angelo DO at [facility] Right: Shoulder [employer] 04/24/2027 [id number] / / [id number] Screw Locking 4.5mm 15mm - [id number] Implanted:Qt y: 1 on 07/11/2022 by Sami Angelo DO at [facility] Right: Shoulder [employer] 03/24/2027 108-4515 / / [id number] Screw Locking 4.5mm 20mm - [id number] Implanted:Qt y: 1 on 07/11/2022 by Sami Angelo DO at [facility] Right: Shoulder [employer] 03/24/2027 [id number] / / [id number] Humelock Ii Stem Ta6v Size 12 Cementless Implanted:Qt y: 1 on 07/11/2022 by Sami Angelo DO at [facility] Right: Shoulder [employer] 10/22/2026 [id number] / / [id number] Cortical Screw Ta6v, 5mm, L. 24mm Implanted:Qt y: 1 on 07/11/2022 by Sami Angelo DO at [facility] Right: Shoulder [employer] 09/22/2023 107-4524 / / [id number] Humeral Cup 135/145 Degree, Standard, 36/+6 Implanted:Qt y: 1 on 07/11/2022 by Sami Angelo DO at [facility] Right: Shoulder 02/21/2025 [id number] / / [id number] Screw Locking 4.5mm 20mm - [id number] Implanted:Qt y: 1 on 07/11/2022 by Sami Angelo DO at [facility] Right: Shoulder [employer] 03/24/2027 108-4520 / / [id number] documented as of this encounter Procedures Procedure Name Priority Date/Time Associated Diagnosis Comments MRI L SPINE WO CONTRAST Routine 12/03/2023 8:21 AM EDT Postlaminectomy syndrome, lumbar Acute left-sided low back pain with left-sided sciatica Procedure Note - Uday Pineda IV, MD / Naeem Renee MD - 12/03/2023 8:21 AM EDTThis note is in progress. EXAM: MRI LUMBAR SPINE WITHOUT CONTRAST - 12/03/2023 HISTORY: 63 y/o F with acute on chronic low back pain radiating to the lowerextremity. COMPARISON: MRI lumbar spine 06/13/2021 and 04/25/2019; CT abdomen/pelvis 11/21/2019 TECHNIQUE: Multiplanar multisequence magnetic resonance imaging of the lumbar spinewas performed without contrast. FINDINGS: There are 5 lumbar-type vertebral bodies and S1 is incorporated into thesacrum. Grade 1 retrolisthesis of L5 on S1. Mild levoconvex curvaturethe spine. Patient is status post L3-L5 laminectomy, L4-L5 discectomy and interbodyfusion, and L4-S1 instrumented posterior lumbar fusion. Chronic fluidcollection at L5 likely, unchanged. Susceptibility artifact from thesurgical hardware in the patient's cord stimulator somewhat limitsevaluation. There is no acute fracture deformity or traumatic subluxation. Vertebral body heights are maintained. Progressive disc height loss atL3-L4. L3 vertebral body edema has decreased in extent compared to06/13/2021. L5 vertebral body edema has resolved. No destructiveosteolytic processes are seen. The conus medullaris terminates normally at L1. Thickening and clumpingthe cauda equina nerve roots suggesting chronic arachnoiditis. Multilevel degenerative changes are present throughout spine as detailedbelow: L1-L2: Facet arthropathy and ligamentum flavum hypertrophy withoutsignificant spinal canal stenosis or neural foraminal narrowing. L2-L3: Diffuse disc bulge, facet arthropathy, and ligamentum flavumhypertrophy resulting in mild spinal canal stenosis without significantneural foraminal narrowing. L3-L4: Chronic pars defect on the right and likely pars defect on theleft. There is bilateral articular pillar ankylosis. Left parsinterarticularis pseudoarthrosis at L3 with surrounding edema. Softtissue from pseudoarthrosis, left lateral disc bulge, facet arthropathycontribute to severe left and moderate right neural foraminal narrowing. L4-L5: Facet arthropathy without significant spinal canal stenosis orneural foraminal narrowing. L5-S1: Facet arthropathy results in moderate bilateral neural foraminalnarrowing. No spinal canal stenosis. Denervation atrophy/edema of the paraspinous muscles. IMPRESSION: 1. Progressive degenerative disc disease at L3-L4 with severe left andmoderate right neural foraminal narrowing. 2. Left pars interarticularis pseudoarthrosis at L3 with surroundingedema. 3. Thickening and clumping of the cauda equina nerve roots suggestingchronic arachnoiditis. documented in this encounter Visit Diagnoses Diagnosis Postlaminectomy syndrome, lumbar Postlaminectomy syndrome, lumbar region Acute left-sided low back pain with left-sided sciatica documented in this encounter Advance Directives * [...] Agents on File Name Relationship Healthcare Agent [facility] p Communication Donny Pace Spouse Health Care Agent Care Teams Security Incident Handler Relationship Specialty Start Date End Date Keagan Sanchez MD [address] [place] [id number] PCP - General Family Medicine 10/07/23 documented as of this encounter
--- OUTSIDE RECORDS SUMMARY | 2024-03-06 12:33 | External Medical Summary | Summary of Care ---
Author Name Unknown Organization [facility] Address [address] [place] [address] Phone [phone] Care Team Providers Care Social Professionals Name Role Phone Keagan Jalloh MD Primary Care Provider [phone] Reason for Visit * Reason Onset Date Comments Medication Refill 12/17/2023 Encounter Details Date Type Department Care Team ([facility] st Contact Info) Description 12/17/[address] [address] Keagan Jalloh MD [address] [place] [address] [phone] Postlaminectomy syndrome, lumbar Allergies Active Allergy Reactions Criticality Noted Date Comments Adhesive Tape 03/31/2023 Other Reaction(s): Tape- redness, paper tape/coban "ok", [id number] TAPE OK OR COBAN Clarithromycin High 03/31/2023 [...] BEFORE MEALS 270 Tablet 09/26/2023 5 Active Gabapentin 800 MG Oral Tablet (Neurontin)Indica tions:DDD (degenerative disc disease), cervical Take 1 Tablet [...] Oral Tablet (Zetia)Indication s: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 90 Tablet 12/19/2023 Active traMADol HCl 50 MG Oral Tablet (Ultram)Indicatio ns:Postlaminectom y syndrome, lumbar Take 2 Tablets by mouth every 6 hours as needed for Pain, Moderate. 90 Tablet 12/03/2023 Discontinue d(Refill) documented as of this encounter [...] hypothyroidism 04/12/2021 Coronary artery disease invo lving craig coronary artery of craig heart without angina pectoris 09/27/2020 Last Assessment & Plan: Has 3 stents (2 in LAD one in diagonal), placed at [facility] [address] Womack Followed by [facility] cardiology, Angela Littlejohn, next appt May 2024 [...] Telephone Encounter - Keagan Jalloh MD - 12/19/2023 9:53 AM EDTSigned Prescriptions: Disp Refills traMADol HCl 50 MG Oral Tablet (Ultram) 90 Tab*0 Sig: Take 2 Tablets by mouth every 6 hours as needed for Pain, Moderate.Authorizing Provider: KEAGAN JALLOH * Telephone Encounter - Keagan Jalloh MD - 12/19/2023 9:52 AM EDTSigned Prescriptions: Disp Refills traMADol HCl 50 MG Oral Tablet (Ultram) 90 Tab*0 Sig: Take 2 Tablets by mouth every 6 hours as needed for Pain, Moderate. Authorizing Provider: KEAGAN JALLOH * Telephone Encounter - Alyson Cleveland, nuclear scientist - 12/18/2023 4:31 PM EDT Pt is almost out of medication Please send by Friday Thank you for your assistance Alyson Cleveland Literary Writer II [facility] ([facility]) 12/18/2023,4:32 PM * Telephone Encounter - Alethea Dorantes [facility] - 12/18/2023 3:28 PM EDTPending Prescriptions: Disp Refills traMADol HCl 50 MG Oral Tablet (Ultram) 90 Tab*0 Sig: Take 2 Tablets by mouth every 6 hours as needed for Pain, Moderate. * Telephone Encounter - Alethea Dorantes [facility] - 12/18/2023 3:27 PM EDT I have reviewed the patients controlled substance dispensing history in the Prescription Drug Monitoring Program in compliance with the [facility] regulations before prescribing a controlled substance. PDMP checked on 12/18/2023. Pending Prescriptions: Disp Refills traMADol HCl 50 MG Oral Tablet (Ultram) 90 Tab*0 Sig: Take 2 Tablets by mouth every 6 hours as needed for Pain, Moderate. Last Visit: 11/20/2023 (in office), 10/31/2023 (telemedicine) Next Visit: 12/22/2023 Date medication was last filled: 12/03/23 Date medication is due for refill: 12/14/23 [facility]acy: [facility] [id number] Is this request for a controlled substance? Yes and Urine Drug Screen Not completed Toxicology results: Results for orders placed or performed in visit on 04/19/22 PAIN MANAGEMENT DRUG PANEL, URINE W/ INTERPRETATION Result Value Compliance Interpretation Based on the medication information provided: The presence of tramadol and o-desmethyltramadol is CONSISTENT with the reported use of prescribed tramadol. Amphetamines Screen, U Negative Benzodiazepines Screen, U Negative Cannabinoids Screen, U Negative Cocaine Metabolite Screen, U Negative Fentanyl Screen, U Negative Hydrocodone Screen, U Negative Methadone Metabolite Screen, U Negative Morphine/Codeine Screen, U Negative Oxycodone Screen, U Negative Valid Interpretation Normal Creatinine, U 24 Narrative Cutoff Concentrations: Drug Level Amphetamines 500 [...] results can be found in Results Review. Please approve if appropriate. Thanks, Alethea Dorantes, PharmD Clinical Pharmacist [facility] [phone] 12/18/2023 3:27 PM documented in this encounter Plan of Treatment Upcoming Encounters Date Type Department Care Team (Late st Contact Info) Description 12/19/2023 10:30 AM EDT Office Visit Orthopaedics Spine [facility], [place] [address] [place] [address] Kosta Thomas MD [address] [place] [address] 12/22/2023 1:40 PM EDT Office Visit [address] [address] Keagan Jalloh MD [address] [place] [address] 12/29/2023 12:30 PM EDT Home Visit [facility] [place] [facility] [address] [place] [address] Nika Guevara RN [address] [place] [address] 01/08/2024 1:00 PM EDT Office Visit Gastroenterology, [facility] [address] [place] [address] Rachael Tavarez CRNP [address] [facility] [address] 02/11/2024 10:30 AM EST Telemedicine [facility] [place] [facility] [address] [place] [address] Oriana Isaacs PA-C [address] [place] [address] Edith Garcia, Community Health Personnel Manager [address] [place] [address] 06/07/2024 11:00 AM EDT Office Visit Cardiology [facility] [address] [facility] [address] [place] [address] Angela Littlejohn CRNP [address] [place] [address] 08/09/2024 10:00 AM EDT Office Visit Orthopaedics [facility] [address] [place] [address] Sami Angelo DO [address] [place] [address] 10/07/2024 2:40 PM EDT Office Visit Dermatology [facility] [address] [place] [address] Alden Ann PA-C [address] [place] [address] 11/25/2024 11:00 AM EDT Office Visit Neurology [facility] [address] [place] [facility] [place] [address] Kelly Waddell PA-C [address] [facility] [address] [address] [place] [address] Scheduled Procedures Name Priority Associated Diagnoses Date/Ti [...] D LEVEL ONCE IN A LIFETIME-USE SMARTSET# 35740 Completed 01/28/2022, 02/21/2015, 12/30/2011 RETIRED - COLONOSCOPY-EVERY [...] this encounter Medical Devices Implanted Type Area Manufacturing Planner Device Identifier Shelf Expiration Date Model / Serial / Lot Medtronic-05/27/2023 Implanted: (Quantity not on file) Neurostimulator MEDTRONIC : NEUROLOGIC PAIN 05/26/2049 [id number] / / [id number] Screw Jami Lacie 3 Ti Set - [id number] Implanted:Qt y: 6 on 03/10/2012 at [facility] Bilateral : Spine Lumbar LEVON : SPINE [id number] / / Screw Lacie Pa Ti 6.5x50mm - [id number] Implanted:Qt y: 4 on 03/10/2012 at [facility] Bilateral : Spine Lumbar LEVON : SPINE [id number] / / Levon Xia3 7.0 X 40mm Screws Implanted:Qt y: 2 on 03/10/2012 at OR [facility] Bilateral : Spine Lumbar [id number] / / Shaun Lacie 3 Ti 6x70mm - [id number] Implanted:Qt y: 1 on 03/10/2012 at OR [facility] N/A: Spine Lumbar LEVON : SPINE [id number] / / Shaun Lacie 3 Ti Max 6x80mm - [id number] Implanted:Qt y: 1 on 03/10/2012 at OR [facility] N/A: Spine Lumbar LEVON : SPINE [id number] / / 9 X 25 X 4 - 8 Avs Wedge Nose Cage Implanted:Qt y: 1 on 03/10/2012 at OR [facility] N/A: Spine Lumbar [id number] / / Stent Synergy Xd Mr 2.83d07mh - [id number] Implanted:Qt y: 1 on 09/20/2020 at [facility] [employer] [id number] 04/18/2022 [id number] / / [id number] Stent Synergy Xd Mr 2.98f20un - [id number] Implanted:Qt y: 1 on 09/20/2020 at [facility] [employer] [id number] 04/25/2022 [id number] / / [id number] Screw Locking 4.5mm 15mm - [id number] Implanted:Qt y: 1 on 07/11/2022 by Sami Angelo DO OR [facility] Right: Shoulder [employer] 11/22/2025 108-4515 / / [id number] Bseplate Jasmeet Cmntlss W Scrw - [id number] Implanted:Qt y: 1 on 07/11/2022 by Sami Angelo DO OR [facility] Right: Shoulder [employer] 03/24/2027 105-0029 / / [id number] Glenosphere Rev Thee W Scrw - [id number] Implanted:Qt y: 1 on 07/11/2022 by Sami Angelo DO OR [facility] Right: Shoulder [employer] 04/24/2027 105-3610 / / [id number] Screw Locking 4.5mm 15mm - [id number] Implanted:Qt y: 1 on 07/11/2022 by Sami Angelo DO OR [facility] Right: Shoulder [employer] 03/24/2027 108-4515 / / [id number] Screw Locking 4.5mm 20mm - [id number] Implanted:Qt y: 1 on 07/11/2022 by Sami Angelo DO OR [facility] Right: Shoulder [employer] 03/24/2027 108-4520 / / [id number] Humelock Ii Stem Ta6v Size 12 Cementless Implanted:Qt y: 1 on 07/11/2022 by Sami Angelo DO OR [facility] Right: Shoulder [employer] 10/22/2026 [id number] / / [id number] Cortical Screw Ta6v, 5mm, L. 24mm Implanted:Qt y: 1 on 07/11/2022 by Sami Angelo DO at OR [facility] Right: Shoulder [employer] 09/22/2023 107-4524 / / [id number] Humeral Cup 135/145 Degree, Standard, 36/+6 Implanted:Qt y: 1 on 07/11/2022 by Sami Angelo DO at OR [facility] Right: Shoulder 02/21/2025 313-0706 / / [id number] Screw Locking 4.5mm 20mm - [id number] Implanted:Qt y: 1 on 07/11/2022 by Sami Angelo DO at OR [facility] Right: Shoulder [employer] 03/24/2027 108-4520 / / [id number] documented as of this encounter Visit Diagnoses Diagnosis Postlaminectomy syndrome, [...] Agents on File Name Relationship Healthcare Agent [facility] Communication Donny Pace Spouse Health Care Agent Care Teams Social Professionals Relationship Specialty Start Date End Date Keagan Jalloh MD [address] [place] [address] PCP - General Family Medicine 10/07/23 documented as of this encounter
--- OUTSIDE RECORDS SUMMARY | 2024-03-06 12:33 | External Medical Summary | Summary of Care ---
Author Name Unknown Organization [facility] Address [address] [place] [address] Phone [phone] Care Team Providers Care Vegetable Farm Manager Name Role Phone Keagan Jalloh MD Primary Care Provider [phone] Reason for Visit * Reason Onset Date Comments Medication Refill 12/01/2023 Encounter Details Date Type Department Care Team ([facility] st Contact Info) Description 12/01/[address] [address] Keagan Jalloh MD [address] [place] [address] [phone] Postlaminectomy syndrome, lumbar Allergies Active Allergy Reactions Criticality Noted Date Comments Adhesive Tape 03/31/2023 Other Reaction(s): Tape- redness, paper tape/coban "ok", [id number] TAPE OK OR COBAN Clarithromycin High 03/31/2023 Other Reaction(s): Rash, diarrhea, RASH,DIARRHEA Duloxetine Hcl Flushing,Nausea/vomi tin g High 10/20/2019 Erythromycin Base Rash 03/14/2004 Orlistat Low 03/31/2023 Other Reaction(s): GI UPSET Penicillins Rash 03/14/2004 Prednisone Other (Please comment) High 10/10/2023 pancreatitis Sulfa Antibiotics Rash 03/14/2004 documented as of this encounter (statuses as of 12/03/2023) Medications Medication Sig Dispensed Refills Start Date [...] BEDTIME 180 Tablet 3 07/25/2023 5 Active Torsemide 10 MG Oral Tablet (Demadex)Indicati ons:Shortness of breath Take 1 Tablet by mouth [...] Oral Tablet (Zetia)Indication s:Coronary artery disease involving [place] coronary artery of [place] heart with unstable angina pectoris (HCC) TAKE [...] for Pain, Moderate. 90 Tablet 12/03/2023 Active traMADol HCl 50 MG Oral Tablet (Ultram)Indicatio ns:Postlaminectom y syndrome, lumbar Take 2 Tablets by mouth every 6 hours as needed for Pain, Moderate. 90 Tablet 11/14/2023 Discontinue d(Refill) documented as of this encounter (statuses as of 12/03/2023) Active Problems Problem Noted Date Diagnosed Date [...] hypothyroidism 04/12/2021 Coronary artery disease invo lving [place] coronary artery of [place] heart without angina pectoris 09/27/2020 S/P angioplasty [...] as of this encounter (statuses as of 12/03/2023) Resolved Problems Problem Noted Date Diagnosed Date [...] as of this encounter (statuses as of 12/03/2023) Immunizations Name Administration Dates Next Due COVID-19 [...] Telephone Encounter - Pretty Bucio LPN - 12/03/2023 1:40 PM EDTSigned Prescriptions: Disp Refills traMADol HCl 50 MG Oral Tablet (Ultram) 90 Tab*0 Sig: Take 2 Tablets by mouth every 6 hours as needed for Pain, Moderate.Authorizing Provider: KEAGAN JALLOH * Telephone Encounter - Keagan Jalloh MD - 12/03/2023 11:50 AM EDTSigned Prescriptions: Disp Refills traMADol HCl 50 MG Oral Tablet (Ultram) 90 Tab*0 Sig: Take 2 Tablets by mouth every 6 hours as needed for Pain, Moderate. Authorizing Provider: KEAGAN JALLOH * Telephone Encounter - Vidal Jones, physical therapist assistant - 12/03/2023 9:48 AM EDT Pt calling to check on status of refill request. Caller can be reached at [phone]. Pt upset because she requested RX as Priority and its not filled! Thank You, Vidal Jones [facility] Air Conditioning Coil Assembler II [facility] 12/03/2023, 9:48 AM * Telephone Encounter - Hien Coles, [facility] - 12/02/2023 4:04 PM EDTPending Prescriptions: Disp Refills traMADol HCl 50 MG Oral Tablet (Ultram) 90 Tab*0 Sig: Take 2 Tablets by mouth every 6 hours as needed for Pain, Moderate. * Telephone Encounter - Gem Carver, [facility] - 12/02/2023 11:25 AM EDT Pending Prescriptions: Disp Refills traMADol HCl 50 MG Oral Tablet (Ultram) 90 Tab*0 Sig: Take 2 Tablets by mouth every 6 hours as needed for Pain, Moderate. * Telephone Encounter - Gem Carver RPh - 12/02/2023 11:24 AM EDT I have reviewed the patients controlled substance dispensing history in the Prescription Drug Monitoring Program in compliance with the [facility] regulations before prescribing a controlled substance. PDMP checked on 12/02/2023. Pending Prescriptions: Disp Refills traMADol HCl 50 MG Oral Tablet (Ultram) 90 Tab*0 Sig: Take 2 Tablets by mouth every 6 hours as needed for Pain, Moderate. Last Visit: 11/20/2023 (in office), 10/31/2023 (telemedicine) Next Visit: 12/22/2023 Date medication was last filled: 11/13 Date medication is due for refill: 11/24 [facility]acy: [facility] # [id number] Is this request for a controlled [...] Results Review. Please approve if appropriate. Thanks, Gem Carver PharmD Clinical Pharmacist [facility] ([facility]) [phone] 12/02/2023,11:24 AM * Telephone Encounter - Tabatha Yeung, physical therapist assistant - 12/02/2023 11:20 AM EDT Patient requesting high priority states she has 2 pills left Did you pend patient's preferred pharmacy and medication before forwarding?yes Pharmacy: [facility] [id number] Pending Prescriptions: Disp Refills traMADol HCl 50 MG Oral Tablet (Ultram) 90 Tab*0 Sig: Take 2 Tablets by mouth every 6 hours as needed for Pain, Moderate. Last Visit: 11/20/2023 (in office), 10/31/2023 (telemedicine) Next Visit: 12/22/2023 If no future appointments scheduled, and last appointment is greater than a year ago, please schedule patient for a follow-up appointment Last date the medication was ordered: 11/14/2023 Is this request for a controlled substance?Yes, What was the last refill date 11/14/2023 w/ [id number] and dosage 50 mg and Urine Drug Screen Not completed Urine Drug Screen: Results for orders placed [...] Labs: Lab Results Component Value Date/Time CREAT 0.7 11/21/2023 05:30 PM CREAT 1.0 02/26/2020 09:17 AM POTASSIUM 4.1 11/21/2023 05:30 PM POTASSIUM 3.9 02/26/2020 09:17 AM TSH 3.36 07/17/2023 09:07 AM TSH 2.74 10/20/2019 08:59 AM LDL 40 08/24/2023 12:22 AM LDL 120 10/20/2019 08:59 AM LDL NOT APPLICABLE 10/20/2019 08:59 AM ALT 91 (H) 11/21/2023 05:30 PM ALT 32 10/20/2019 08:59 AM HGBA1C 6.0 (H) 07/17/2023 09:07 AM HGBA1C 5.2 06/23/2014 09:27 AM documented in this encounter Plan of Treatment Upcoming Encounters Date Type Department Care Team (Late st Contact Info) Description 12/09/2023 10:00 AM EDT [facility] [place] [facility] [address] [place] [address] Oriana Isaacs PA-C [address] [place] [address] 12/22/2023 1:40 PM EDT Office Visit [address] [phone] Keagan Jalloh MD [address] [place] [address] 12/29/2023 12:30 PM EDT Home Visit [facility] [place] [facility] [address] [place] [address] Nika Guevara RN [address] [place] [address] 01/08/2024 1:00 PM EDT Office Visit Gastroenterology, [facility] [address] [place] [address] Rachael Tavarez CRNP [address] [facility] [place] [address] 06/07/2024 11:00 AM EDT Office Visit Cardiology [facility] [address] [facility] [address] [place] [address] Angela Littlejohn CRNP [address] [place] [address] 08/09/2024 10:00 AM EDT Office Visit Orthopaedics [place] [place] [address] [place] [address] Sami Angelo DO 16 [place] [address] 10/07/2024 2:40 PM EDT Office Visit Dermatology [facility] [address] [place] [address] Alden Ann PA-C [address] [place] [address] 11/25/2024 11:00 AM EDT Office Visit Neurology [facility] [address] [place] [facility] [place] [address] Kelly Waddell PA-C [facility] [place] [address] Scheduled Procedures Name Priority Associated Diagnoses Date/Ti [...] D LEVEL ONCE IN A LIFETIME-USE SMARTSET# 14479 Completed 01/28/2022, 02/21/2015, 12/30/2011 RETIRED - COLONOSCOPY-EVERY [...] this encounter Medical Devices Implanted Type Area Carpentry Specialist Device Identifier Shelf Expiration Date Model / Serial / Lot Medtronic-05/27/2023 Implanted: (Quantity not on file) Neurostimulator MED[employer] : NEUROLOGIC PAIN 05/26/2049 [id number] / / [id number] Screw Jami Lacie 3 Ti Set - [id number] Implanted:Qt y: 6 on 03/10/2012 at [place] [facility] Bilateral : Spine Lumbar LEVON : SPINE [id number] / / Screw Lacie Pa Ti 6.5x50mm - [id number] Implanted:Qt y: 4 on 03/10/2012 at [place] [facility] Bilateral : Spine Lumbar LEVON : SPINE [id number] / / [place] Xia3 7.0 X 40mm Screws Implanted:Qt y: 2 on 03/10/2012 at OR [facility] Bilateral : Spine Lumbar [id number] / / Shaun Lacie 3 Ti 6x70mm - [id number] Implanted:Qt y: 1 on 03/10/2012 at [facility] N/A: Spine Lumbar LEVON : SPINE [id number] / / Shaun Lacie 3 Ti Max 6x80mm - [id number] Implanted:Qt y: 1 on 03/10/2012 at [place] [facility] N/A: Spine Lumbar LEVON : SPINE [id number] / / 9 X 25 X 4 - 8 Avs Wedge Nose Cage Implanted:Qt y: 1 on 03/10/2012 at OR [facility] N/A: Spine Lumbar [id number] / / Stent Synergy Xd Mr 2.00w43ez - [id number] Implanted:Qt y: 1 on 09/20/2020 at [facility] [employer] [id number] 04/18/2022 [id number] / / [id number] Stent Synergy Xd Mr 2.13i59ws - [id number] Implanted:Qt y: 1 on 09/20/2020 at [facility] [employer] [id number] 04/25/2022 [id number] 2220 / / [id number] Screw Locking 4.5mm 15mm - [id number] Implanted:Qt y: 1 on 07/11/2022 by Sami Angelo DO at [facility] Right: Shoulder [employer] 11/22/2025 108-4515 / / [id number] Bseplate Jasmeet Cmntlss W Scrw - [id number] Implanted:Qt y: 1 on 07/11/2022 by Sami Angelo DO [facility] Right: Shoulder [employer] 03/24/2027 105-0029 / / [id number] Glen[employer] Rev Thee W Scrw - [id number] Implanted:Qt y: 1 on 07/11/2022 by Sami Angelo DO at [facility] Right: Shoulder [employer] 04/24/2027 105-3610 / / [id number] Screw Locking 4.5mm 15mm - [id number] Implanted:Qt y: 1 on 07/11/2022 by Sami Angelo DO [facility] Right: Shoulder [employer] 03/24/2027 108-4515 / / [id number] Screw Locking 4.5mm 20mm - [id number] Implanted:Qt y: 1 on 07/11/2022 by Sami Angelo DO [facility] [...] / [id number] Screw Locking 4.5mm 20mm - [id number] Implanted:Qt y: 1 on 07/11/2022 by Sami [...] Pace Spouse Health Care Agent Care Teams Vegetable Farm Manager Relationship Specialty Start Date End Date Keagan Jalloh MD [address] [place] [address] PCP - General Family Medicine 10/07/23 documented as of this encounter
--- OUTSIDE RECORDS SUMMARY | 2024-03-06 12:33 | External Medical Summary | Summary of Care ---
Author Name Unknown Organization [facility] Address [address] [place] [address] Phone [phone] Care Team Providers Care Scrap Carrier Name Role Phone Keagan Sanchez MD Primary Care Provider [phone] Encounter Details Date Type Department Care Team (Late st Contact Info) Description 12/09/2023 10:00 AM EDT [facility], [place] [address] [place] [address] Oriana Isaacs PA-C [address] [place] [address] Coronary artery disease involving mcgrath coronary artery of mcgrath heart without angina pectoris*; Atrial flutter, unspecified type (HCC); Drug-induced acute pancreatitis without infection or necrosis; Diverticulitis; DYSLIPIDEMIA, GOAL TO BE DETERMINED; Hypothyroidism, unspecified type; Gastro-esophageal reflux disease without esophagitis; Age-related osteoporosis without current pathological fracture; Degeneration of lumbosacral intervertebral disc; Adjustment disorder with depressed mood; Anxiety and depression; Prediabetes Allergies Active Allergy Reactions Criticality Noted Date Comments Adhesive Tape 03/31/2023 Other Reaction(s): Tape- redness, paper tape/coban "ok", [id number] TAPE OK OR COBAN Clarithromycin High 03/31/2023 Other Reaction(s): Rash, diarrhea, RASH,DIARRHEA Duloxetine Hcl Flushing,Nausea/vomi tin g High 10/20/2019 Erythromycin Base Rash 03/14/2004 Orlistat Low 03/31/2023 Other Reaction(s): GI UPSET Penicillins Rash 03/14/2004 Prednisone Other (Please comment) High 10/10/2023 pancreatitis Sulfa Antibiotics Rash 03/14/2004 documented as of this encounter (statuses as of 12/09/2023) Medications Medication Sig Dispensed Refills Start Date [...] Oral Tablet (Zetia)Indication s:Coronary artery disease involving mcgrath coronary artery of mcgrath heart with unstable angina pectoris (HCC) TAKE [...] for Pain, Moderate. 90 Tablet 12/03/2023 Active Torsemide 10 MG Oral Tablet (Demadex)Indicati ons:Shortness of breath Take 1 Tablet by mouth in the morning. 30 Tablet 1 08/14/2023 Discontinue d(Patient preference/ discontinua tion) documented as of this encounter (statuses as of 12/09/2023) Active Problems Problem Noted Date Diagnosed Date [...] hypothyroidism 04/12/2021 Coronary artery disease invo lving mcgrath coronary artery of mcgrath heart without angina pectoris 09/27/2020 Last Assessment [...] as of this encounter (statuses as of 12/09/2023) Resolved Problems Problem Noted Date Diagnosed Date [...] as of this encounter (statuses as of 12/09/2023) Immunizations Name Administration Dates Next Due COVID-19 [...] money to buy more. Never true 03/05/20 Within the past 12 months, t he [...] Sign Reading Time Taken Comments Blood Pressure 102/62 12/09/2023 11:05 AM EDT Pulse 61 12/09/2023 11:05 AM EDT Temperature - - Respiratory Rate - - Oxygen Saturation 94% 12/09/2023 11:05 AM EDT Inhaled Oxygen Concentration - - Weight - - Height - - Body Mass Index - - documented in this encounter Functional Status Functional [...] as of this encounter Progress Notes * Oriana Isaacs PA-C - 12/09/2023 7:28 AM EDT Images from the original note were not included. [facility] Provider Visit Date: 12/09/2023 Time: 7:28 AM Assessment and Plan #1 Coronary artery disease involving mcgrath coronary artery of mcgrath heart without angina pectoris(Primary) Assessment & Plan: Has 3 stents (2 in LAD one in diagonal), placed at [facility] [address] Womack Followed by [facility] cardiology, Angela Littlejohn, evelio appt May 2024 Has current NTG On Metoprolol 25mg daily, Lipitor 80mg daily and ASA 81mg #2 Atrial flutter, unspecified type (HCC) Assessment & Plan: Metoprolol 25mg daily #3 Drug-induced acute pancreatitis without infection or necrosis Assessment & Plan: Reglan 10mg daily TID #4 Diverticulitis Assessment & Plan: Has upcoming GI appt #5 DYSLIPIDEMIA, GOAL TO BE DETERMINED Overview: Per Lipid Taxonomy. Assessment & Plan: Lipitor 80mg daily #6 Hypothyroidism, unspecified type Assessment & Plan: Levothyroxine 112mcg daily #7 Gastro-esophageal reflux disease without esophagitis Assessment & Plan: Protonix 40mg daily Pepcid 20mg daily Carafate 1gm BID #8 Age-related osteoporosis without current pathological fracture Assessment & Plan: Cholecalciferol 1000mg daily #9 Degeneration of lumbosacral intervertebral disc #10 Adjustment disorder with depressed mood #11 Anxiety and depression Assessment & Plan: Sertraline 100mg daily Hydroxyzine 50mg TID prn anxiety #12 Prediabetes Overview: Per Prediabetes protocol Assessment & Plan: Metformin 500mg BID Checks BSG twice per week. Never experiences lows Additional Medical Decision Making: Continue with plan as above. Call [facility] with any emergent questions or concerns. Scheduled appointments in the next 60 days: Future Appointments-next 60 days Date/Time Provider Specialty Dept Phone 12/09/2023 10:00 AM Oriana Isaacs PA-C [facility] [phone] 12/22/2023 1:40 PM (Arrive by 1:25 PM) Keagan Sanchez MD Family Medicine [phone] 12/26/2023 10:00 AM Kosta Thomas MD Orthopedic Surgery [phone] 12/29/2023 12:30 PM Nika Guevara RN [facility] [phone] 01/08/2024 1:00 PM (Arrive by 12:45 PM) Rachael Tavarez CRNP Gastroenterology [phone] 06/07/2024 11:00 AM (Arrive by 10:45 AM) Angela Littlejohn CRNP Cardiology [phone] 08/09/2024 10:00 AM Sami Angelo DO Orthopedics [phone] 10/07/2024 2:40 PM (Arrive by 2:25 PM) Alden Ann PA-C Dermatology [phone] 11/25/2024 11:00 AM (Arrive by 10:45 AM) Kelly Waddell PA-C Neurology [phone] A total of 60 minutes was spent face to face (via video-based telemedicine if designated as a telemedicine visit) Subjective Subjective Is this a Telemedicine Visit? No, this is an Home Visit. Reason For [facility] Visit: Enrollment Current Concerns: Shalini Pace is a 63 year old female seen today for a new [facility] provider visit. Pt states that she was enrolled in [facility] in 2021 and subsequently graduated. She went to the ED Nov 20 for back pain, dark stools and abdominal pain. She had a CT scan of her abd/pelvis with no significant findings. She was discharged to home to follow up with her PCP. She had an MRI of her lumbar spine showing previous instrumentation, progressive disc degeneration at L3-L4 with severe left and moderate right neural foraminal narrowing associated with bilateral L3 pars defects, the left pars pseudoarthrosis with surrounding edema. 2. Thickening and clumping of the cauda equina nerve roots with empty sac sign consistent with chronic adhesive arachnoiditis. She states that she continues to have left hip and low back pain that radiates toward her groin. Xrays from 10/24 reviewed by me personally. Hip joint well preserved. AP pelvis shows narrowed SI jointsbilaterally with hardware in lumbar and sacrum as a result of fusion from 2011-. She has some constipation, drinks prune juice daily and Miralax every other day. She also takes a Senna every evening. She tells me that she doesn't have the sensation to push a BM out because she has numbness of her rectum due to cauda equina syndrome. She also has neuropathy of her feet and legs. Today she was having epigastric pain prior to my arrival. She tells me that Dr. Sanchez told her to try a NTG when pain started, which she did. Pain had subsided on my arrival. 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 Today's concerns are: Coronary artery disease involving mcgrath coronary artery of mcgrath heart without angina pectoris, atrial flutter, unspecified type, drug- induced acute pancreatitis without infection or necrosis, diverticulitis, dyslipidemia, hypothyroidism, unspecified type, gastro-esophageal reflux disease without esophagitis, age-related osteoporosis without current pathological fracture, degeneration of lumbosacral intervertebral disc, adjustment disorder with depressed mood, anxiety and depression Additional Review of Systems Eyes: Positive for photophobia (with migraines). Respiratory: Positive for shortness of breath ("only when I get epigastric pain"). Cardiovascular: Positive for chest pain ("from chronic pancreatitis"). Gastrointestinal: Positive for constipation and nausea. Musculoskeletal: Positive for arthralgias (right shoulder), back pain and gait problem. Neurological: Positive for dizziness (with migraines), light-headedness, numbness (legs and feet) and headaches. Psychiatric/Behavioral: The patient is nervous/anxious. All other systems reviewed and are negative. I have reviewed the following results: Current Outpatient Medications Medication Sig Dispense Refill amLODIPine Besylate 5 MG Oral Tablet (Norvasc) TAKE ONE TABLET BY MOUTH IN THE MORNING 90 Tablet 3 Aspirin 81 MG Oral Tablet Chewable Take 1 Tab by mouth daily. 30 Tab 11 Atorvastatin Calcium 80 MG Oral Tablet (Lipitor) TAKE ONE TABLET BY MOUTH EVERY EVENING 90 Tablet 3 Baclofen 20 MG Oral Tablet TAKE ONE TABLET BY MOUTH FOUR TIMES A DAY (MORNING, NOON, EVENING AND BEDTIME) 360 Tablet 0 Cholecalciferol (VITAMIN D) 1000 UNIT Capsule Take 1 Cap by mouth daily. 30 Cap 11 Ezetimibe 10 MG Oral Tablet (Zetia) TAKE ONE TABLET BY MOUTH EVERY MORNING 90 Tablet 3 Famotidine 20 MG Oral Tablet (Pepcid) Take 1 Tablet by mouth in the morning and 1 Tablet before bedtime. 60 Tablet 11 Gabapentin 800 MG Oral Tablet (Neurontin) Take 1 Tablet by mouth in the morning and 1 Tablet at noon and 1 Tablet before bedtime. 270 Tablet 1 hydrOXYzine HCl 50 MG Oral Tablet Take 1 Tablet by mouth 3 times a day as needed for Anxiety (hyperventilation). 30 Tablet 0 Lactulose 10 GM/15ML Oral Solution (Constulose) Take 15 mL by mouth 2 times a day as needed for Constipation. severe constipation (Patient not taking: Reported on 11/19/2023) 237 mL 1 Levalbuterol HCl 1.25 MG/3ML Inhalation Nebulization Solution (Xopenex) Inhale 1 Ampule via nebulizer every 4 hours as needed for Wheezing. 72 mL 12 Levalbuterol Tartrate 45 MCG/ACT Inhalation Aerosol (Xopenex HFA) Inhale 2 Puffs by mouth every 4 hours as needed for Wheezing. 15 g 12 Levothyroxine Sodium 112 MCG Oral Tablet (Levoxyl) TAKE 1 TABLET BY MOUTH DAILY AT LEAST 30 MINUTESPRIOR TO FIRST MEAL OF THE DAY OR OTHER MEDICATIONS 90 Tablet 1 metFORMIN HCl 500 MG Oral Tablet (Glucophage) Take 1 Tablet by mouth 2 times a day with morning andevening meals. 60 Tablet 4 Metoclopramide HCl 10 MG Oral Tablet (Reglan) TAKE ONE TABLET BY MOUTH THREE TIMES A DAY THIRTY MINUTES BEFORE MEALS 270 Tablet 0 Metoprolol Succinate ER 25 MG Oral Tablet Extended Release 24 Hour (toPROL XL) TAKE ONE TABLET BY MOUTH IN THE MORNING. 90 Tablet 3 Nitroglycerin 0.4 MG Sublingual Tablet Sublingual (Nitrostat) Place 1 Tablet under the tongue every5 minutes as needed for Pain, Chest. 25 Tablet 1 Pantoprazole Sodium 40 MG Oral Tablet Delayed Release (Protonix) TAKE ONE TABLET BY MOUTH EVERY DAY30 MNUTES PRIOR TO FIRST MEAL OF THE DAY, DO NOT CRUSH SPLIT OR CHEW TABLET 90 Tablet 3 Sennosides (SENNA) 8.6 MG Tablet TAKE 2 TABLETS BY MOUTH DAILY NEEDED FOR CONSTIPATION. 60 Tab 5 Sertraline HCl 100 MG Oral Tablet (Zoloft) Sucralfate 1 GM Oral Tablet (Carafate) TAKE ONE TABLET BY MOUTH IN THE MORNING AND TAKE ONE TABLET BEFORE BEDTIME 180 Tablet 3 Topiramate 25 MG Oral Tablet (topAMAX) Take 2 tablets by mouth nightly 180 Tablet 2 traMADol HCl 50 MG Oral Tablet (Ultram) Take 2 Tablets by mouth every 6 hours as needed for Pain, Moderate. 90 Tablet 0 No current facility-administered medications for this visit. Objective Objective Vitals: 12/09/23 1105 Pulse: 61 SpO2: 94% BP: 102/62 Last Weights: Wt Readings from Last 3 Encounters: 11/25/23 84.2 kg (185 lb 9.6 oz) 11/21/23 78.9 kg (174 lb) 11/20/23 81 kg (178 lb 9.6 oz) Last BPs: BP Readings from Last 4 Encounters: 12/09/23 102/62 11/25/23 92/58 11/21/23 123/56 11/20/23 110/64 Physical Exam Constitutional: General: She is not in acute distress. Appearance: Normal appearance. She is normal weight. She is not ill-appearing, toxic-appearing or diaphoretic. HENT: Head: Normocephalic and atraumatic. Right Ear: External ear normal. Left Ear: External ear normal. Nose: Nose normal. Mouth/Throat: Mouth: Mucous membranes are moist. Eyes: General: No scleral icterus. Right eye: No discharge. Left eye: No discharge. Extraocular Movements: Extraocular movements intact. Conjunctiva/sclera: Conjunctivae normal. Cardiovascular: Rate and Rhythm: Normal rate and regular rhythm. Pulses: Normal pulses. Heart sounds: Normal heart sounds. No murmur heard. No friction rub. No gallop. Pulmonary: Effort: Pulmonary effort is normal. No respiratory distress. Breath sounds: Normal breath sounds. No stridor. No wheezing, rhonchi or rales. Chest: Chest wall: No tenderness. Abdominal: General: Abdomen is flat. Bowel sounds are normal. There is no distension. Palpations: Abdomen is soft. There is no mass. Tenderness: There is no abdominal tenderness. There is no guarding. Musculoskeletal: General: No swelling, tenderness, deformity or signs of injury. Normal range of motion. Cervical back: Neck supple. Right lower leg: No edema. Left lower leg: No edema. Comments: Wearing back brace Skin: General: Skin is warm and dry. Capillary Refill: Capillary refill takes less than 2 seconds. Coloration: Skin is not jaundiced or pale. Findings: No bruising, erythema, lesion or rash. Neurological: Mental Status: She is alert and oriented to person, place, and time. Cranial Nerves: No cranial nerve deficit. Sensory: No sensory deficit. Motor: No weakness. Coordination: Coordination normal. Gait: Gait abnormal (occasionally uses cane or walker). Deep Tendon Reflexes: Reflexes normal. Psychiatric: Mood and Affect: Mood normal. Behavior: Behavior normal. Thought Content: Thought content normal. Judgment: Judgment normal. Oriana Isaacs PA-C 7:28 AM documented in this encounter Miscellaneous Notes * ACP (Advance Care Planning) - Oriana Isaacs PA-C - 12/09/2023 11:15 AM EDT Images from the original note were not included. Patient-centered Communication 12/09/2023 The patient/surrogate voluntarily agreed to participate in advance care planning discussion. They were advised that this is a separate service which may incur out of pocket cost in the form of copayment and/or deductibles. Location: Home Individual(s) present for conversation: Patient Decisions Additional Comments Discerning What Matters Most to the Patient: Synopsis SmartLink Most Recent Value Past ~10 years 04/05/2021 16:18 Discerning What Matters Most to the Patient Their current SYMPTOMS include: Pain 04/05/2021 Pain They say their illness has CHANGED THEIR LIFE by: Other (define below) 04/05/2021 Other (define below) Other, patient defines as: back surgeries; back pain, disabled her from worjking 04/05/2021 back surgeries; back pain, disabled her from worjking The patient defines LIVING WELL as: you choice what you want at your end of life stages 04/05/2021 you choice what you want at your end of life stages Source: Content from [employer] Program Aligning Care With What Matters Most: No data to display Rationale for Decisions Source: Content from [employer] Program 10 minutes spent in direct [id number] discussion maite, Oriana Isaacs PA-C * Assessment & Plan Note - Oriana Isaacs PA-C - 12/09/2023 11:03 AM EDTAssociated Problem(s): Prediabetes Metformin 500mg BID Checks BSG twice per week. Never experiences lows * Assessment & Plan Note - Oriana Isaacs PA-C - 12/09/2023 10:57 AM EDTAssociated Problem(s): Diverticulitis Has upcoming GI appt * Assessment & Plan Note - Oriana Isaacs PA-C - 12/09/2023 10:56 AM EDTAssociated Problem(s): Anxiety and depression Sertraline 100mg daily Hydroxyzine 50mg TID prn anxiety * Assessment & Plan Note - Oriana Isaacs PA-C - 12/09/2023 10:55 AM EDTAssociated Problem(s): Age-related osteoporosis without current pathological fracture Cholecalciferol 1000mg daily * Assessment & Plan Note - Oriana Isaacs PA-C - 12/09/2023 10:54 AM EDTAssociated Problem(s): Gastro-esophageal reflux disease without esophagitis Protonix 40mg daily Pepcid 20mg daily Carafate 1gm BID * Assessment & Plan Note - Oriana Isaacs PA-C - 12/09/2023 10:53 AM EDTAssociated Problem(s): Hypothyroidism Levothyroxine 112mcg daily * Assessment & Plan Note - Oriana Isaacs PA-C - 12/09/2023 10:52 AM EDTAssociated Problem(s): Dyslipidemia, goal to be determined Lipitor 80mg daily * Assessment & Plan Note - Oriana Isaacs PA-C - 12/09/2023 10:52 AM EDTAssociated Problem(s): Drug-induced acute pancreatitis without infection or necrosis Reglan 10mg daily TID * Assessment & Plan Note - Oriana Isaacs PA-C - 12/09/2023 10:51 AM EDTAssociated Problem(s): Atrial flutter (HCC) Metoprolol 25mg daily * Assessment & Plan Note - Oriana Isaacs PA-C - 12/09/2023 10:51 AM EDTAssociated Problem(s): Coronary artery disease involving mcgrath coronary artery of mcgrath heart without angina pectoris Has 3 stents (2 in LAD one in diagonal), placed at [facility] [place] [address] Womack Followed by [facility] cardiology, Angela Littlejohn, next appt May 2024 Has current NTG On Metoprolol 25mg daily, Lipitor 80mg daily and ASA 81mg documented in this encounter Plan of Treatment Upcoming Encounters Date Type Department Care Team (Late st Contact Info) Description 12/22/2023 1:40 PM EDT Office Visit [facility] [address] [place] [address] Keagan Sanchez MD [address] [place] [address] 12/26/2023 10:00 AM EDT Office Visit Orthopaedics Spine Surgery, [place] [address] [place] [id number] Kosta Thomas MD [address] [place] [address] 12/29/2023 12:30 PM EDT Home Visit [facility], [facility] [address] [place] [address] Nika Guevara RN [address] [place] [address] 01/08/2024 1:00 PM EDT Office Visit Gastroenterology, [facility] [address] [address] Rachael Tavarez CRNP [address] [facility] [address] 06/07/2024 11:00 AM EDT Office Visit Cardiology [facility] [address] [facility] [address] [place] [address] Angela Littlejohn CRNP [address] [place] [address] 08/09/2024 10:00 AM EDT Office Visit Orthopaedics [place], [place] [address] [place] [address] Sami Angelo DO [address] [place] [address] 10/07/2024 2:40 PM EDT Office Visit Dermatology [facility] [address] [place] [address] Alden Ann PA-C [address] [place] [address] 11/25/2024 11:00 AM EDT Office Visit Neurology [facility] [address] [place] [address] Kelly Waddell PA-C [address] [facility] [place] [address] Scheduled Procedures Name Priority Associated Diagnoses Date/Ti [...] D LEVEL ONCE IN A LIFETIME-USE SMARTSET# [id number] Completed 01/28/2022, 02/21/2015, 12/30/2011 RETIRED - COLONOSCOPY-EVERY [...] this encounter Medical Devices Implanted Type Area Analytics Intern Device Identifier Shelf Expiration Date Model / Serial / Lot Medtronic-05/27/2023 Implanted: (Quantity not on file) Neurostimulator [employer] : NEUROLOGIC PAIN 05/26/2049 [id number] / / [id number] Screw Jami Lacie 3 Ti Set - [id number] Implanted:Qt y: 6 on 03/10/2012 at OR [facility] Bilateral : Spine Lumbar LEVON : SPINE [id number] / / Screw Lacie Pa Ti 6.5x50mm - [id number] Implanted:Qt y: 4 on 03/10/2012 at OR [facility] Bilateral : Spine Lumbar LEVON : SPINE [id number] / / Reader Xia3 7.0 X 40mm Screws Implanted:Qt y: 2 on 03/10/2012 at OR [facility] Bilateral : Spine Lumbar [id number] / / Shaun Lacie 3 Ti 6x70mm - [id number] Implanted:Qt y: 1 on 03/10/2012 at OR [facility] N/A: Spine Lumbar LEVON : SPINE [id number] / / Shaun Lacie 3 Ti Max 6x80mm - [id number] Implanted:Qt y: 1 on 03/10/2012 at OR [facility] N/A: Spine Lumbar LEVON : SPINE [id number] / / 9 X 25 X 4 - 8 Avs Wedge Nose Cage Implanted:Qt y: 1 on 03/10/2012 at OR [facility] N/A: Spine Lumbar [id number] / / Stent Synergy Xd Mr 2.01t70ck - [id number] Implanted:Qt y: 1 on 09/20/2020 at CARDIAC LABS [facility] [employer] [id number] 04/18/2022 [id number] / / [id number] Stent Synergy Xd Mr 2.44k91gb - [id number] Implanted:Qt y: 1 on 09/20/2020 at [facility] [employer] [id number] 04/25/2022 [id number] / / [id number] Screw Locking 4.5mm 15mm - [id number] Implanted:Qt y: 1 on 07/11/2022 by Sami Angelo DO at OR [facility] Right: Shoulder [employer] 11/22/2025 [id number] / / [id number] Bseplate Jasmeet Cmntlss W Scrw - [id number] Implanted:Qt y: 1 on 07/11/2022 by Sami Angelo DO at OR [facility] Right: Shoulder [employer] 03/24/2027 [id number] / / [id number] [employer] Rev Thee W Scrw - [id number] Implanted:Qt y: 1 on 07/11/2022 by Sami Angelo DO at OR [facility] Right: Shoulder [employer] 04/24/2027 [id number] / / [id number] Screw Locking 4.5mm 15mm - [id number] Implanted:Qt y: 1 on 07/11/2022 by Sami Angelo DO at OR [facility] Right: Shoulder [employer] 03/24/2027 108-4515 / / [id number] Screw Locking 4.5mm 20mm - [id number] Implanted:Qt y: 1 on 07/11/2022 by Sami [...] / [id number] Screw Locking 4.5mm 20mm - [id number] Implanted:Qt y: 1 on 07/11/2022 by Sami Angelo DO at OR [facility] Right: Shoulder [employer] 03/24/2027 [id number] / / [id number] documented as of this encounter Visit Diagnoses Diagnosis Coronary artery disease involving mcgrath coronary artery of mcgrath heart without angina pectoris- Primary Atrial flutter, [...] depression Dysthymic disorder Prediabetes Other abnormal glucose documented in this encounter Advance Directives * [...] Pace Spouse Health Care Agent Care Teams Scrap Carrier Relationship Specialty Start Date End Date Keagan Sanchez MD [address] [place] [address] PCP - General Family Medicine 10/07/23 documented as of this encounter
--- OUTSIDE RECORDS SUMMARY | 2024-03-06 12:33 | External Medical Summary | Summary of Care ---
Author Name Unknown Organization [facility] Address [address] [place] [address] Phone [phone] Care Team Providers Care Wheel Blocker Name Role Phone Keagan Sanchez MD Primary Care Provider [phone] Reason for Referral * Evaluate & Treat - Unlimited Visits (Within 10 days (routine)) - Authorized Specialty Diagnoses / Procedures Referred By Lynn t Referred To Contact Neuro/Ortho Surgery - Spine. / Neurological Surgery Diagnoses Low back pain, unspecified back pain laterality, unspecified chronicity, unspecified whether sciatica present DDD (degenerative disc disease), lumbar Lumbar radiculopathy Failed back syndrome Kosta Thomas MD [address] [place] [address] Josesito Martinez MD [address] [place] [address] Referral ID Status Reason Start Date Expiration Date Visits Requested Visits Authorized [id number] Authorized Specialty Services Required 12/19/2023 999 999 [...] MRI, lumbar spine Jamarcus Carreno PA-C [address] [place] [address] Referral ID Status Reason Start Date Expiration Date Visits Requested Visits Authorized [id number] Authorized Specialty Services Required 12/05/2023 999 999 Encounter Details Date Type Department Care Team (Late st Contact Info) Description 12/19/2023 10:30 AM EDT Office Visit Orthopaedics Spine Surgery, [place] [address] [place] [address] Kosta Thomas MD [address], [place] [id number] Low back pain, unspecified back pain laterality, unspecified chronicity, unspecified whether sciatica present*; DDD (degenerative disc disease), lumbar; Lumbar radiculopathy; Failed back syndrome Allergies Active Allergy Reactions Criticality Noted Date Comments Adhesive Tape 03/31/2023 Other Reaction(s): Tape- redness, paper tape/coban "ok", [id number] TAPE OK OR COBAN Clarithromycin High 03/31/2023 [...] Oral Tablet (Zetia)Indications :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 [facility] Kosta Thomas MD 12/19/2023 11:18 AM documented in this encounter Plan of Treatment Upcoming Encounters Date Type Department Care Team (Late st Contact Info) Description 12/22/2023 1:40 PM EDT Office Visit [address] [address] Keagan Sanchez MD [address] [place] [address] 12/29/2023 12:30 PM EDT [facility] [address] [place] [address] Nika Guevara RN [address] [place] [address] 01/08/2024 1:00 PM EDT Office Visit Gastroenterology, [facility] [address] [place] [address] Rachael Tavarez CRNP [address] [facility] [place] [address] 02/11/2024 10:30 AM EST Telemedicine [facility], [facility] [address] [place] [address] Oriana Isaacs PA-C [address] [place] [address] Edith Garcia, Community Health Phlebotomy Instructor [address] [place] [address] 02/12/2024 2:45 PM EST Office Visit Neurosurgery, [place] [address] [place] [address] Josesito Martinez MD [address] [place] [address] 06/07/2024 11:00 AM EDT Office Visit Cardiology [address] [place] [address] Angela Littlejohn CRNP [address] [place] [address] 08/09/2024 10:00 AM EDT Office Visit Orthopaedics [facility] [address] [place] [address] Sami Angelo DO 16 [place] [address] 10/07/2024 2:40 PM EDT Office Visit Dermatology [facility] [address] [place] [address] Alden Ann PA-C [address] [place] [address] 11/25/2024 11:00 AM EDT Office Visit Neurology [facility] 200 [place] [address] Kelly Waddell PA-C [address] [place] [address] Scheduled Procedures Name Priority Associated Diagnoses Date/Ti [...] 09/20/2020, Additional history exists TSH 07/16/2024 07/17/2023, 11/2022, 09/10/2022, Additional history exists GFR 11/20/2024 11/21/2023, 11/2023, 08/25/2023, Additional history exists DTap/Tdap Vaccines (3 - Td or Tdap) 10/10/2026 10/10/2016, 10/26/2005 Colonoscopy 04/18/2027 04/18/2022, 03/25, 08/10/2013, Additional history exists Colorectal Cancer Screening 04/18/2027 VITAMIN D LEVEL ONCE IN A LIFETIME-USE SMARTSET# 63626 Completed 01/28/2022, 02/21/2015, 12/30/2011 RETIRED - COLONOSCOPY-EVERY [...] this encounter Medical Devices Implanted Type Area Epic Kaleidoscope Analyst Device Identifier Shelf Expiration Date Model / Serial / Lot Medtronic-05/27/2023 Implanted: (Quantity not on file) Neurostimulator MEDTRONIC : NEUROLOGIC PAIN 05/26/2049 [id number] / / [id number] Screw Jami Lacie 3 Ti Set - [id number] Implanted:Qt y: 6 on 03/10/2012 at [place] [facility] Bilateral : Spine Lumbar LEVON : SPINE [id number] / / Screw Lacie Pa Ti 6.5x50mm - [id number] Implanted:Qt y: 4 on 03/10/2012 at [place] [facility] Bilateral : Spine Lumbar LEVON : SPINE [id number] / / Holbrook Xia3 7.0 X 40mm Screws Implanted:Qt y: 2 on 03/10/2012 at [place] [facility] Bilateral : Spine Lumbar [id number] / / Shaun Lacie 3 Ti 6x70mm - [id number] Implanted:Qt y: 1 on 03/10/2012 at [place] [facility] N/A: Spine Lumbar LEVON : SPINE [id number] / / Shaun Lacie 3 Ti Max 6x80mm - [id number] Implanted:Qt y: 1 on 03/10/2012 at [place] [facility] N/A: Spine Lumbar LEVON : SPINE [id number] / / 9 X 25 X 4 - 8 Avs Wedge Nose Cage Implanted:Qt y: 1 on 03/10/2012 at [place] [facility] N/A: Spine Lumbar [id number] / / Stent Synergy Xd Mr 2.34r51td - [id number] Implanted:Qt y: 1 on 09/20/2020 at [facility] [employer] [id number] 04/18/2022 [id number] / / [id number] Stent Synergy Xd Mr 2.71f39ea - [id number] Implanted:Qt y: 1 on 09/20/2020 at [facility] [employer] [id number] 04/25/2022 [id number] 2220 / / [id number] Screw Locking 4.5mm 15mm - [id number] Implanted:Qt y: 1 on 07/11/2022 by Sami Angelo DO at [place] [facility] Right: Shoulder [employer] 11/22/2025 108-4515 / / [id number] Bseplate Jasmeet Cmntlss W Scrw - [id number] Implanted:Qt y: 1 on 07/11/2022 by Sami Angelo DO at [place] [facility] Right: Shoulder [employer] 03/24/2027 105-0029 / / [id number] Glenosphere Rev Thee W Scrw - [id number] Implanted:Qt y: 1 on 07/11/2022 by Sami Angelo DO at [place] [facility] Right: Shoulder [employer] 04/24/2027 105-3610 / / [id number] Screw Locking 4.5mm 15mm - [id number] Implanted:Qt y: 1 on 07/11/2022 by Sami Angelo DO at [place] [facility] Right: Shoulder [employer] 03/24/2027 108-4515 / / [id number] Screw Locking 4.5mm 20mm - [id number] Implanted:Qt y: 1 on 07/11/2022 by Sami [...] / [id number] Screw Locking 4.5mm 20mm - [id number] Implanted:Qt y: 1 on 07/11/2022 by Sami [...] Name Relationship [facility] Donny Pace Spouse Health Care Agent Care Teams Wheel Blocker Relationship Specialty Start Date End Date Keagan Sanchez MD [address] [place] [address] PCP - General Family Medicine 10/07/23 documented as of this encounter
--- OUTSIDE RECORDS SUMMARY | 2024-03-06 12:33 | External Medical Summary | Summary of Care ---
Author Name Unknown Organization [facility] Address [address] [place] [address] Phone [phone] Care Team Providers Care Sea Shell Gatherer Name Role Phone Keagan Sanchez MD Primary Care Provider [phone] Reason for Referral * Evaluate & Treat - Unlimited Visits (Within 3 days (urgent)) - Authorized Specialty Diagnoses / Procedures Referred By Lynn helton Referred To Contact Neuro/Ortho Surgery - Spine. / Neurological Surgery Diagnoses Postlaminectomy syndrome, lumbar Abnormal MRI, lumbar spine Jamarcus Carreno PA-C [address] [place] [address] Referral ID Status Reason Start Date Expiration Date Visits Requested Visits Authorized [id number] Authorized Specialty Services Required 12/05/2023 999 999 Question Answer Referral Priority Within 3 days (urgent) Where should this appointment be scheduled? [facility]: Back - Thoracic/Lumbar Do you have any recent complete loss of bladder or bowel function? No Reason for Visit * Reason Onset Date Comments FYI 12/05/2023 Encounter Details Date Type Department Care Team ([facility] Contact Info) Description 12/05/2023 Telephone [facility] [address] [place] [phone] Jamarcus Carreno PA-C [address] [place] [address] FYI Allergies Active Allergy Reactions Criticality Noted Date Comments Adhesive Tape 03/31/2023 Other Reaction(s): Tape- redness, paper tape/coban "ok", [id number] TAPE OK OR COBAN Clarithromycin High 03/31/2023 [...] Oral Tablet (Zetia)Indication s:Coronary artery disease involving sitka coronary artery of sitka heart with unstable angina pectoris (HCC) TAKE ONE TABLET BY MOUTH EVERY MORNING 90 Tablet 3 11/07/2023 5 Active Levothyroxine Sodium 112 MCG Oral Tablet (Levoxyl) TAKE 1 TABLET BY MOUTH DAILY AT LEAST 30 MINUTES PRIOR TO FIRST MEAL OF THE DAY OR OTHER MEDICATIONS 90 Tablet 1 11/21/2023 Active Topiramate 25 MG Oral Tablet (topAMAX) [...] in the morning. 30 Tablet 1 08/14/2023 4 Discontinue d(Patient preference/ discontinua tion) documented as [...] hypothyroidism 04/12/2021 Coronary artery disease invo lving sitka coronary artery of sitka heart without angina pectoris 09/27/2020 Last Assessment & Plan: Has 3 stents (2 in LAD one in diagonal), placed at [facility] [place] [address] Woamck Followed by [facility] [...] encounter Miscellaneous Notes * Telephone Encounter - Estela Narayanan LPN - 12/09/2023 1:30 PM EDT Spoke with pt and made aware of message below * Telephone Encounter - Jamarcus Carreno PA-C - 12/06/2023 8:03 AM EDT Nerve compression and inflammatory changes, also noted on prior MRI. See spine surgery as scheduled. * Telephone Encounter - Brenda Gabriel LPN - 12/05/2023 10:19 AM EDT Pt calling she would like clarification on MRI results. 2. Thickening and clumping of the cauda equina nerve roots with empty sac sign consistent with chronic adhesive arachnoiditis. Please advise. * Telephone Encounter - Amanda Escobar OSA - 12/05/2023 10:15 AM EDT Reason for patient's call: Shalini has questions about her MRI. Caller was transferred to Sera at the nurse line. * Telephone Encounter - Jamarcus Carreno PA-C - 12/05/2023 8:20 AM EDT Schedule with spine surgery for consult, referral placed. documented in this encounter Plan of Treatment Upcoming Encounters Date Type Department Care Team (Late st Contact Info) Description 12/22/2023 1:40 PM EDT Office Visit [address] [address] Keagan Sanchez MD [address] [place] [address] 12/26/2023 10:00 AM EDT Office Visit Orthopaedics Spine Surgery, [place] [address] [place] [address] Kosta Thomas MD [address] [place] [address] 12/29/2023 12:30 PM EDT [facility], [place] [address] [place] [address] Nika Guevara RN [address] [place] [address] 01/08/2024 1:00 PM EDT Office Visit Gastroenterology, [facility] [address] [facility] [place] [address] Rachael Tavarez CRNP [address] [place] [address] 02/11/2024 10:30 AM EST Telemedicine [facility] [place] [address] [place] [address] Oriana Isaacs PA-C [address] [place] [address] Edith Garcia, Community Health Real Estate Listing Consultant [address] [place] [address] 06/07/2024 11:00 AM EDT Office Visit Cardiology [facility] 68 [facility] [address] [place] [address] Angela Littlejohn CRNP [address] [place] [address] 08/09/2024 10:00 AM EDT Office Visit Orthopaedics [facility] [address] [place] [address] Sami Angelo DO 16 [place] [address] 10/07/2024 2:40 PM EDT Office Visit Dermatology [facility] [address] [place] [address] Alden Ann PA-C [address] [place] [address] 11/25/2024 11:00 AM EDT Office Visit Neurology [facility] [place] [address] [place] [address] Kelly Waddell PA-C [address] [place] [address] Scheduled Procedures Name Priority Associated Diagnoses Date/Ti me COLONOSCOPY FLEXIBLE PROXIMA L DIAGNOSTIC Recall Family history of colonic polyps Scheduled Referrals Name Type Priority Associated Diagnoses Orde r Schedule SPINE SURGERY REFERRAL OP Referral Within 3 days (urgent) Postlaminectomy syndrome, lumbar Abnormal MRI, lumbar spine Ordered: 12/05/2023 Health Maintenance Due Date Last Done Comments [...] D LEVEL ONCE IN A LIFETIME-USE SMARTSET# 48222 Completed 01/28/2022, 02/21/2015, 12/30/2011 RETIRED - COLONOSCOPY-EVERY [...] this encounter Medical Devices Implanted Type Area Cutlet Maker Pork Device Identifier Shelf Expiration Date Model / Serial / Lot Medtronic-05/27/2023 Implanted: (Quantity not on file) Neurostimulator MEDTRONIC : NEUROLOGIC PAIN 05/26/2049 60545 / / [id number] Screw Jami Lacie 3 Ti Set - [id number] Implanted:Qt y: 6 on 03/10/2012 at OR [facility] Bilateral : Spine Lumbar LEVON : SPINE [id number] / / Screw Lacie Pa Ti 6.5x50mm - [id number] Implanted:Qt y: 4 on 03/10/2012 at OR [facility] Bilateral : Spine Lumbar LEVON : SPINE [id number] / / Levon Xia3 7.0 X 40mm Screws Implanted:Qt y: 2 on 03/10/2012 at OR [facility] Bilateral : Spine Lumbar [id number] / / Shaun Lacie 3 Ti 6x70mm - [id number] Implanted:Qt y: 1 on 03/10/2012 at OR [facility] N/A: Spine Lumbar LEVON : SPINE [id number] / / Shaun Lacie 3 Ti Max 6x80mm - [id number] Implanted:Qt y: 1 on 03/10/2012 at OR [facility] N/A: Spine Lumbar LEVON : SPINE [id number] / / 9 X 25 X 4 - 8 Avs Wedge Nose Cage Implanted:Qt y: 1 on 03/10/2012 at OR [facility] N/A: Spine Lumbar [id number] / / Stent Synergy Xd Mr 2.63z78go - [id number] Implanted:Qt y: 1 on 09/20/2020 at [facility]ARDIAC LABS [facility] Ketto [id number] 04/18/2022 [id number] 6220 / / [id number] Stent Synergy Xd Mr 2.45d76yk - [id number] Implanted:Qt y: 1 on 09/20/2020 at [facility] Ketto [id number] 04/25/2022 [id number] 2220 / / [id number] Screw Locking 4.5mm 15mm - [id number] Implanted:Qt y: 1 on 07/11/2022 by Sami Angelo DO at OR [facility] Right: Shoulder [employer] 11/22/2025 108-4515 / / [id number] Bseplate Jasmeet Cmntlss W Scrw - [id number] Implanted:Qt y: 1 on 07/11/2022 by Sami Angelo DO OR [facility] Right: Shoulder [employer] 03/24/2027 105-0029 / / [id number] Glenosphere Rev Thee W Scrw - [id number] Implanted:Qt y: 1 on 07/11/2022 by Sami Angelo DO OR [facility] Right: Shoulder [employer] 04/24/2027 105-3610 / / [id number] Screw Locking 4.5mm 15mm - [id number] Implanted:Qt y: 1 on 07/11/2022 by Sami Angelo DO OR [facility] Right: Shoulder [employer] 03/24/2027 108-4515 / / [id number] Screw Locking 4.5mm 20mm - [id number] Implanted:Qt y: 1 on 07/11/2022 by Sami [...] on 07/11/2022 by Sami Angelo, at OR [facility] Right: Shoulder 02/21/2025 313-0706 / / [id number] Screw Locking 4.5mm 20mm - [id number] Implanted:Qt y: 1 on 07/11/2022 by Sami Angelo, DO at OR [facility] Right: Shoulder [employer] 03/24/2027 108-4520 / / [id number] documented as of this encounter Visit Diagnoses Diagnosis Postlaminectomy syndrome, lumbar- Primary Postlaminectomy syndrome, lumbar region Abnormal MRI, lumbar spine Nonspecific (abnormal) findings on radiological and other examination of musculoskeletal system documented in this encounter Advance Directives * [...] Pace Spouse Health Care Agent Care Teams Sea Shell Gatherer Relationship Specialty Start Date End Date Keagan Sanchez MD [address] [place] [address] PCP - General Family Medicine 10/07/23 documented as of this encounter
--- OUTSIDE RECORDS SUMMARY | 2024-03-06 12:33 | External Medical Summary | Summary of Care ---
Author Name Unknown Organization [facility] Address [address] [place] [address] Phone [phone] Care Team Providers Care Process Machine Operator Name Role Phone Keagan Sanchez MD Primary Care Provider [phone] Reason for Visit * Reason Onset Date Comments [facility]: Engagement 12/09/2023 Encounter Details Date Type Department Care Team (Late st Contact Info) Description 12/09/2023 Telephone [facility] [place] [address] [place] [address] Services, Scheduling [address] [place] [address] [facility]: Engagement Allergies Active Allergy Reactions Criticality Noted Date Comments Adhesive Tape 03/31/2023 Other Reaction(s): Tape- redness, paper tape/coban "ok", [id number] TAPE OK OR COBAN Clarithromycin High 03/31/2023 [...] Oral Tablet (Zetia)Indications :Coronary artery disease involving qawalangin coronary artery of qawalangin heart with unstable angina pectoris (HCC) TAKE [...] hypothyroidism 04/12/2021 Coronary artery disease invo lving qawalangin coronary artery of qawalangin heart without angina pectoris 09/27/2020 Last Assessment & Plan: Has 3 stents (2 in LAD one in diagonal), placed at [facility] [place] [address] Womack Followed by [facility] cardiology, Angela Littlejohn, next [...] encounter Miscellaneous Notes * Telephone Encounter - Kenya Bernal OSA - 12/09/2023 1:31 PM EDT Shital request a 2 mon vid ret, appt set for 02/10, reminder senf documented in this encounter Plan of Treatment Upcoming Encounters Date Type Department Care Team (Late st Contact Info) Description 12/22/2023 1:40 PM EDT Office Visit [facility] [address] [place] [address] Keagan Sanchez MD [address] [place] [address] 12/26/2023 10:00 AM EDT Office Visit Orthopaedics Spine Surgery, [place] [address] [place] [phone] Kosta Thomas MD [address] [place] [address] 12/29/2023 12:30 PM EDT [facility] [address] [place] [address] Nika Guevara RN [address] [place] [address] 01/08/2024 1:00 PM EDT Office Visit Gastroenterology, [facility] [address] [place] [address] Rachael Tavarez CRNP [address] [place] [address] 02/11/2024 10:30 AM EST Telemedicine [facility], [facility] [address] [place] [address] Oriana Isaacs PA-C [address] [place] [address] Edith Garcia, Community Health Leather Grainer [address] [place] [address] 06/07/2024 11:00 AM EDT Office Visit Cardiology [facility] 68 [facility] [address] [place] [address] Angela Littlejohn CRNP [address] [place] [address] 08/09/2024 10:00 AM EDT Office Visit Orthopaedics [facility] 16 [place] [address] Sami Angelo DO 16 [place], [place] [address] 10/07/2024 2:40 PM EDT Office Visit Dermatology [facility] [address] [place] [address] Alden Ann PA-C [address] [place] [address] 11/25/2024 11:00 AM EDT Office Visit Neurology [facility] 200 [facility] [place] [address] Kelly Waddell PA-C [address] [place], [place] [phone] Scheduled Procedures Name Priority Associated Diagnoses Date/Ti [...] D LEVEL ONCE IN A LIFETIME-USE SMARTSET# 63157 Completed 01/28/2022, 02/21/2015, 12/30/2011 RETIRED - COLONOSCOPY-EVERY [...] this encounter Medical Devices Implanted Type Area Fresh Foods Cake Decorator Device Identifier Shelf Expiration Date Model / Serial / Lot Medtronic-05/27/2023 Implanted: (Quantity not on file) Neurostimulator MED[employer] : NEUROLOGIC PAIN 05/26/2049 23649 / / [id number] Screw Jami Lacie 3 Ti Set - [id number] Implanted:Qt y: 6 on 03/10/2012 at [place] [facility] Bilateral : Spine Lumbar LEVON : SPINE [id number] / / Screw Lacie Pa Ti 6.5x50mm - [id number] Implanted:Qt y: 4 on 03/10/2012 at OR [facility] Bilateral : Spine Lumbar LEVON : SPINE [id number] / / Levon Xia3 7.0 X 40mm Screws Implanted:Qt y: 2 on 03/10/2012 at OR [facility] Bilateral : Spine Lumbar [id number] / / Shaun Lacie 3 Ti 6x70mm - [id number] Implanted:Qt y: 1 on 03/10/2012 at OR [facility] N/A: Spine Lumbar LEVON : SPINE [id number] / / Shaun Lacie 3 Ti Max 6x80mm - [id number] Implanted:Qt y: 1 on 03/10/2012 at OR [facility] N/A: Spine Lumbar LEVON : SPINE [id number] / / 9 X 25 X 4 - 8 Avs Wedge Nose Cage Implanted:Qt y: 1 on 03/10/2012 at OR [facility] N/A: Spine Lumbar [id number] / / Stent Synergy Xd Mr 2.53a29of - [id number] Implanted:Qt y: 1 on 09/20/2020 at [facility] Startpack [id number] 04/18/2022 [id number] 6220 / / [id number] Stent Synergy Xd Mr 2.00l20xd - [id number] Implanted:Qt y: 1 on 09/20/2020 at [facility] Startpack [id number] 04/25/2022 [id number] 2220 / / [id number] Screw Locking 4.5mm 15mm - [id number] Implanted:Qt y: 1 on 07/11/2022 by Sami Angelo DO at OR [facility] Right: Shoulder [employer] 11/22/2025 108-4515 / / [id number] Bseplate Jasmeet Cmntlss W Scrw - [id number] Implanted:Qt y: 1 on 07/11/2022 by Sami Angelo DO at OR [facility] Right: Shoulder [employer] 03/24/2027 105-0029 / / [id number] Glenosphere Rev Thee W Scrw - [id number] Implanted:Qt y: 1 on 07/11/2022 by Sami Angelo DO at OR [facility] Right: Shoulder [employer] 04/24/2027 105-3610 / / [id number] Screw Locking 4.5mm 15mm - [id number] Implanted:Qt y: 1 on 07/11/2022 by Sami Angelo DO at OR [facility] Right: Shoulder [employer] 03/24/2027 108-4515 / / [id number] Screw Locking 4.5mm 20mm - [id number] Implanted:Qt y: 1 on 07/11/2022 by Sami Angelo DO at OR [facility] Right: Shoulder [employer] 03/24/2027 108-4520 / / [id number] Humelock Ii Stem Ta6v Size 12 Cementless Implanted:Qt y: 1 on 07/11/2022 by Sami Angelo DO at OR [facility] Right: Shoulder [employer] 10/22/2026 311-0212 / / [id number] Cortical Screw Ta6v, 5mm, L. 24mm Implanted:Qt y: 1 on 07/11/2022 by Sami Angelo DO at OR [facility] Right: Shoulder [employer] 09/22/2023 107-4524 / / [id number] Humeral Cup 135/145 Degree, Standard, 36/+6 Implanted:Qt y: 1 on 07/11/2022 by Sami Angelo DO at OR [facility] Right: Shoulder 02/21/2025 313-0706 / / [id number] Screw Locking 4.5mm 20mm - [id number] Implanted:Qt y: 1 on 07/11/2022 by Sami Angelo DO at [place] [facility] Right: Shoulder [employer] SOLUTIONS [...] on File Name [facility] Communication Donny Pace Spouse Health Care Agent [phone] (Mobile) Care Teams Process Machine Operator Relationship Specialty Start Date End Date Keagan Sanchez MD [address] [place] [address] PCP - General Family Medicine 10/07/23 documented as of this encounter
--- OUTSIDE RECORDS SUMMARY | 2024-03-06 12:34 | External Medical Summary | Summary of Care ---
Author Name Unknown Organization [facility] Address [address] [facility] [place] [address] Phone [phone] Care Team Providers Care Picker / Packer Name Role Phone Keagan Sanchez MD Primary Care Provider [phone] Reason for Visit * Reason Onset Date Comments [facility]: Acute 11/18/2023 Encounter Details Date Type Department Care Team (Late st Contact Info) Description 11/18/2023 Telephone [facility], [facility] [address] [facility] [place] [id number] Rachna Gama RN [address] [place] [facility] [place] [address] [facility]: Acute Allergies Active Allergy Reactions Criticality Noted Date Comments Adhesive Tape 03/31/2023 Other Reaction(s): Tape- redness, paper tape/coban "ok", [id number] TAPE OK OR COBAN Clarithromycin High 03/31/2023 Other Reaction(s): Rash, diarrhea, RASH,DIARRHEA Duloxetine Hcl Flushing,Nausea/vomi tin g High 10/20/2019 Erythromycin Base Rash 03/14/2004 Orlistat Low 03/31/2023 Other Reaction(s): GI UPSET Penicillins Rash 03/14/2004 Prednisone Other (Please comment) High 10/10/2023 pancreatitis Sulfa Antibiotics Rash 03/14/2004 documented as of this encounter (statuses as of 11/26/2023) Medications Medication Sig Dispensed Refills Start Date [...] Pain, Chest. 25 Tablet 1 4 Active amLODIPine Besylate 5 MG Oral Tablet (Norvasc) TAKE ONE TABLET BY MOUTH IN THE MORNING 90 Tablet 3 4 05/26/19 25 Active Sucralfate 1 GM Oral Tablet (Carafate) TAKE ONE TABLET BY MOUTH IN THE MORNING AND TAKE ONE TABLET BEFORE BEDTIME 180 Tablet 3 4 07/25/19 25 Active Torsemide 10 MG Oral Tablet (Demadex)Indicat ions:Shortness of breath Take 1 Tablet by mouth in the morning. 30 Tablet 1 4 Active Levalbuterol HCl 1.25 MG/3ML Inhalation Nebulization [...] MEALS 270 Tablet 4 09/26/19 25 Active Gabapentin 800 MG Oral Tablet (Neurontin)Indic ations:DDD (degenerative disc disease), cervical Take 1 Tablet by mouth in the morning and 1 Tablet at noon and 1 Tablet before bedtime. 270 Tablet 1 4 Active Sertraline HCl 100 MG Oral [...] severe constipation 237 mL 1 4 Active Additional Information Patient not taking.Reported on 11/19/2023 metFORMIN HCl 500 MG Oral Tablet (Glucophage) Take 1 Tablet by mouth 2 times a day with morning and evening meals. 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 90 Tablet 4 Active Topiramate 25 MG Oral Tablet (topAMAX) TAKE TWO TABLETS BY MOUTH AT BEDTIME 180 Tablet 5 3 11/20/19 24 Discontinued(Re fill) Levothyroxine Sodium 112 MCG Oral Tablet (Levoxyl) TAKE 1 TABLET BY MOUTH DAILY AT LEAST 30 MINUTES PRIOR TO FIRST MEAL OF THE DAY OR OTHER MEDICATIONS 90 Tablet 1 4 11/21/19 24 Discontinued(Re fill) LORazepam 0.5 MG Oral Tablet (Ativan) 4 11/25/19 24 Discontinued documented as of this encounter (statuses as of 11/26/2023) Active Problems Problem Noted Date Diagnosed Date [...] hypothyroidism 04/12/2021 Coronary artery disease invo lving tulalip coronary artery of tulalip heart without angina pectoris 09/27/2020 S/P angioplasty [...] as of this encounter (statuses as of 11/26/2023) Resolved Problems Problem Noted Date Diagnosed Date [...] as of this encounter (statuses as of 11/26/2023) Immunizations Name Administration Dates Next Due COVID-19 [...] encounter Miscellaneous Notes * Telephone Encounter - Tracee Raya LPN - 11/26/2023 12:03 PM EDT Had appt * Telephone Encounter - Keagan Sanchez MD - 11/19/2023 3:30 PM EDT Please schedule to be seen by any provider in clinic * Telephone Encounter - Rachna Gama RN - 11/18/2023 5:04 PM EDT PC received from pt, asking for follow up of her earlier PC. Instructed her to f/u with PCP and [facility] team will need to review the situation. FCC scheduled for tomorrow. Pt is discourtaged that no PC received back today. Instructd her to call Dr Sanchez tomorrow to f/u. Rachna Gama RN [facility] Intake [phone] * Telephone Encounter - Dmitry Haley DO - 11/18/2023 3:57 PM EDT [facility] Quick[facility] Subprogram: Short-Term Management (less than 3 months) Recommendations: I would defer to the care team for recommendations on how to best manage this acute on chronic painfrom longstanding back issues. In the [facility] role would not recommend advanced imaging and defer to the appropriate specialist. Orders: No orders of the defined types were placed in this encounter. To Do: Please see below for follow up items to be completed and correspondence: See above Dmitry Haley DO [facility] Medical [facility] - [facility] 11/18/2023 Scheduled appointments in the next 60 days: Future Appointments-next 60 days Date/Time Provider Specialty Dept Phone 11/19/2023 10:00 AM (Arrive by 9:45 AM) Anai Schultz PA-C Gastroenterology [phone] 11/19/2023 2:30 PM Coordinator, [facility] [phone] 11/20/2023 9:45 AM Coordinator, [facility] [phone] 12/09/2023 10:00 AM Oriana Isaacs PA-C [facility] [phone] 12/22/2023 1:40 PM (Arrive by 1:25 PM) Keagan Sanchez MD Family Medicine [phone] 12/29/2023 12:30 PM Nika Guevara RN [facility] [phone] 06/07/2024 11:00 AM (Arrive by 10:45 AM) Angela Littlejohn CRNP Cardiology [phone] 08/09/2024 10:00 AM Sami Angelo DO Orthopedics [phone] 10/07/2024 2:40 PM (Arrive by 2:25 PM) Alden Ann PA-C Dermatology [phone] * Telephone Encounter - Rachna Gama RN - 11/18/2023 2:02 PM EDT [facility] transportation security officer Acute Call Date: 11/18/2023 Time: 2:02 PM Name: Shalini Pace : 1960 Caller: Patient HPI: Shalini Pace is a 63 year old old female that is calling [facility] to report: She is calling as she was instructed by Nika RAY [facility]. She was instructed to call [facility] for worsening back pain. Seen by RNCM yesterday. Low back pain getting progressively worse. Now has burning feeling down her LLE. Feels best in supine position. Pain increases when standing and walking w/walker. Pt is taking Baclofen, Tramodol and Gabapentin for pain. She has hx of thoracic and L-S spine neuritis, DDD-cervical, Degenerative L-S intravrtebral disc. Lumbosacrol spondylosis and lumbar lami She feels meds are not helping and reports she cannot take Steroids. She rates pain as 10+ on 1-10 pain scale. She is able to speak with me on the phone. Medications reviewed. She does not need any refills or is not asking for pain meds. She is unsure how to get relief from the pain radiating down her leg. Sounds like nerve is impinged. Had xray of hips 11/05/23: FINDINGS Visualized pelvic bones appear intact on single frontal view. Sacrum is partially obscured by bowelgas. Sacroiliac joints are intact. Lower lumbar spine fusion hardware is partially visualized. Right hip: No acute fracture or dislocation. Cartilage space is maintained. Left hip: No acute fracture or dislocation. Cartilage space is maintained. IMPRESSION IMPRESSION No acute fracture or dislocation of bilateral hips. Bilateral hip cartilage space is preserved. Nursing Assessment: Patient's chief complaint for this call: Other, describe Back Pain. Pain Has pain Pain level: 10 Location: Left lower back radiating into groin and down LLE. Quality of Pain: sharp when standing. Stabbing pain also. Feels like her back wants to "give out," Does the pain radiate: Yes Location(s) pain is radiating to: Down LLE. Also has burning. Baseline Assessment Able to performing ADLs at baseline (walking, daily tasks, etc.): No Chief Complaint is related to a chronic condition: Yes Chronic Condition: Pain and Nerve pain since end of 2023. Chief Complaint is a change in baseline: Yes, Increase in pain Patient prescribed oxygen? No Patient has been ordered DME equipment (assistive devices, respiratory equipment, etc.): Yes Describe DME devices: Cane and R/W, Nebulizer Patient is using DME device as directed: Yes Using walker Medication Reconciliation: (See medication list) Received flu shot this season: Unknown Taking medication as ordered: Yes Medications ordered/taking to treat reason for call: No Heart failure symptoms: No COPD exacerbation symptoms: No Reinforcement Education: You need to stand and ambulate with R/W frequently as tolerated. Cannot stay supine all day. Apply ice or heat -whatever feels better to you, x 20 min on/off QID prn. May need to see neurologist julissa. Continue meds as prescribed. Try Salon pas patched to low back for local relief of pain. Call [facility] for worsening sxs Prone to falls- use walker at al times for ambulation. May need further diagnostics. Will call back with recommendations. Treatment/Plan: (need to report) Level of call: Acute Appointment scheduled for same day: No Routing to [facility] and Team for further recommednations. Will include Keagan Sanchez MD. PC's scheduled. Rachna Gama RN [facility] Intake [phone] documented in this encounter Plan of Treatment Upcoming Encounters Date Type Department Care Team (Late st Contact Info) Description 12/03/2023 8:30 AM EDT Appointment Radiology, [place] [address] 12/09/2023 10:00 AM EDT Home Visit [facility], [place] [address] [place] [address] Oriana Isaacs PA-C [address] [place] [address] 12/22/2023 1:40 PM EDT Office Visit Family Practice [facility] [address] [place] [phone] Keagan Sanchez MD [address] [place] [address] 12/29/2023 12:30 PM EDT Home Visit [facility], [facility] [address] [place] [address] Nika Guevraa RN [address] [place] [address] 06/07/2024 11:00 AM EDT Office Visit Cardiology [facility] [address] [facility] [address] [place] [phone] Angela Littlejohn CRNP [address] [place] [address] 08/09/2024 10:00 AM EDT Office Visit Orthopaedics [facility] [address] [place] [address] Sami Angelo DO [address] [place] [address] 10/07/2024 2:40 PM EDT Office Visit Dermatology [facility] [address] [place] [address] Alden Ann PA-C [address] [place] [address] 11/25/2024 11:00 AM EDT Office Visit [facility] [place] [address] [facility] [address] Kelly Waddell PA-C [address] [place] [address] Scheduled Procedures Name Priority Associated Diagnoses Date/Ti [...] D LEVEL ONCE IN A LIFETIME-USE SMARTSET# 51268 Completed 01/28/2022, 02/21/2015, 12/30/2011 RETIRED - COLONOSCOPY-EVERY [...] encounter Medical Devices Implanted Type Area Director Orange Device Identifier Shelf Expiration Date Model / Serial / Lot Medtronic-05/27/2023 Implanted: (Quantity not on file) Neurostimulator MEDTRONIC : NEUROLOGIC PAIN 05/26/2049 [id number] / / [id number] Screw Jami Lacie 3 Ti Set - [id number] Implanted:Qt y: 6 on 03/10/2012 at OR [facility] Bilateral : Spine Lumbar LEVON : SPINE [id number] / / Screw Lacie Pa Ti 6.5x50mm - [id number] Implanted:Qt y: 4 on 03/10/2012 at OR [facility] Bilateral : Spine Lumbar LEVON : SPINE [id number] / / Bradford Xia3 7.0 X 40mm Screws Implanted:Qt y: 2 on 03/10/2012 at OR [facility] Bilateral : Spine Lumbar [id number] / / Shaun Lacie 3 Ti 6x70mm - [id number] Implanted:Qt y: 1 on 03/10/2012 at OR [facility] N/A: Spine Lumbar LEVON : SPINE [id number] / / Shaun Lacie 3 Ti Max 6x80mm - [id number] Implanted:Qt y: 1 on 03/10/2012 at OR [facility] N/A: Spine Lumbar LEVON : SPINE [id number] / / 9 X 25 X 4 - 8 Avs Wedge Nose Cage Implanted:Qt y: 1 on 03/10/2012 at OR [facility] N/A: Spine Lumbar [id number] / / Stent Synergy Xd Mr 2.13w36zo - [id number] Implanted:Qt y: 1 on 09/20/2020 at [facility]S [facility] [employer] [id number] 04/18/2022 [id number] / / [id number] Stent Synergy Xd Mr 2.11q12ov - [id number] Implanted:Qt y: 1 on 09/20/2020 at [facility] [employer] [id number] 04/25/2022 [id number] / / [id number] Screw Locking 4.5mm 15mm - [id number] Implanted:Qt y: 1 on 07/11/2022 by Sami Angelo DO at OR [facility] Right: Shoulder [employer] 11/22/2025 108-4515 / / [id number] Bseplate Jasmeet Cmntlss W Scrw - [id number] Implanted:Qt y: 1 on 07/11/2022 by Sami Angelo DO OR [facility] Right: Shoulder [employer] 03/24/2027 105-0029 / / [id number] Glenosphere Rev Thee W Scrw - [id number] Implanted:Qt y: 1 on 07/11/2022 by Sami Angelo DO OR [facility] Right: Shoulder [employer] 04/24/2027 105-3610 / / [id number] Screw Locking 4.5mm 15mm - [id number] Implanted:Qt y: 1 on 07/11/2022 by Sami Angelo DO OR [facility] Right: Shoulder [employer] 03/24/2027 108-4515 / / [id number] Screw Locking 4.5mm 20mm - [id number] Implanted:Qt y: 1 on 07/11/2022 by Sami Angelo DO OR [facility] Right: Shoulder [employer] 03/24/2027 108-4520 / / [id number] Humelock Ii Stem Ta6v Size 12 Cementless Implanted:Qt y: 1 on 07/11/2022 by Sami Angelo DO at OR [facility] Right: Shoulder [employer] 10/22/2026 311-0212 / / [id number] Cortical Screw Ta6v, 5mm, L. 24mm Implanted:Qt y: 1 on 07/11/2022 by Sami Angelo, DO at OR [facility] Right: Shoulder [employer] 09/22/2023 107-4524 / / [id number] Humeral Cup 135/145 Degree, Standard, 36/+6 Implanted:Qt y: 1 on 07/11/2022 by Sami Angelo, DO at OR [facility] Right: Shoulder 02/21/2025 313-0706 / / [id number] Screw Locking 4.5mm 20mm - [id number] Implanted:Qt y: 1 on 07/11/2022 by Sami Angelo, DO at OR [facility] Right: Shoulder [employer] 03/24/2027 108-4520 [...] Agents on File Name Relationship Healthcare Agent [facility] p Communication Donny Pace Spouse Health Care Agent Care Teams Picker / Packer Relationship Specialty Start Date End Date Keagan Sanchez MD [address] [place] [id number] PCP - General Family Medicine 10/07/23 documented as of this encounter
--- OUTSIDE RECORDS SUMMARY | 2024-03-06 12:34 | External Medical Summary | Summary of Care ---
Author Name Unknown Organization [facility] Address [address] [facility] [place] [address] Phone [phone] Care Team Providers Care Rehabilitation Coordinator Name Role Phone Keagan Sanchez MD Primary Care Provider [phone] Encounter Details Date Type Department Care Team (Late st Contact Info) Description 11/24/2023 Population Health External Data Unspecified Department Allergies Active Allergy Reactions Criticality Noted Date Comments Adhesive Tape 03/31/2023 Other Reaction(s): Tape- redness, paper tape/coban "ok", [id number] TAPE OK OR COBAN Clarithromycin High 03/31/2023 Other Reaction(s): Rash, diarrhea, RASH,DIARRHEA Duloxetine Hcl Flushing,Nausea/vomi tin g High 10/20/2019 Erythromycin Base Rash 03/14/2004 Orlistat Low 03/31/2023 Other Reaction(s): GI UPSET Penicillins Rash 03/14/2004 Prednisone Other (Please comment) High 10/10/2023 pancreatitis Sulfa Antibiotics Rash 03/14/2004 documented as of this encounter (statuses as of 11/24/2023) Medications Medication Sig Dispensed Refills Start Date End Date Status Cholecalciferol (VITAMIN D) 1000 UNIT Capsule Take 1 Cap by mouth daily. 30 Cap 11 03/09/2015 Active Sennosides (SENNA) 8.6 MG Tablet TAKE 2 TABLETS BY MOUTH DAILY NEEDED FOR CONSTIPATION. 60 Tab 5 02/13/2016 Active Aspirin 81 MG Oral Tablet Chewable Take 1 Tab by mouth daily. 30 Tab 11 02/27/2020 Active Topiramate 25 MG Oral Tablet (topAMAX) TAKE TWO TABLETS BY MOUTH AT BEDTIME 180 Tablet 5 09/09/2022 Active Additional Information Patient taking differently: 50 mg Oral HS, Take 2 tablets (50mg total) by mouth at bed time, Reported on 10/28/2022 Pantoprazole Sodium 40 MG Oral Tablet Delayed [...] 100 MG Oral Tablet (Zoloft) 09/23/2023 Active LORazepam 0.5 MG Oral Tablet (Ativan) 08/26/2023 Active Famotidine 20 MG Oral Tablet (Pepcid)Indication [...] Oral Tablet (Zetia)Indications :Coronary artery disease involving selawik coronary artery of selawik heart with unstable angina pectoris (HCC) TAKE ONE TABLET BY MOUTH EVERY MORNING 90 Tablet 3 11/07/2023 11/06/2024 Active traMADol HCl 50 MG Oral Tablet (Ultram)Indication s:Postlaminectomy syndrome, lumbar Take 2 Tablets by mouth every 6 hours as needed for Pain, Moderate. 90 Tablet 11/14/2023 Active Levothyroxine Sodium 112 MCG Oral Tablet (Levoxyl) TAKE 1 TABLET BY MOUTH DAILY AT LEAST 30 MINUTES PRIOR TO FIRST MEAL OF THE DAY OR OTHER MEDICATIONS 90 Tablet 1 11/21/2023 11/20/2024 Active documented as of this encounter (statuses as of 11/24/2023) Active Problems Problem Noted Date Diagnosed Date [...] hypothyroidism 04/12/2021 Coronary artery disease invo lving selawik coronary artery of selawik heart without angina pectoris 09/27/2020 S/P angioplasty [...] as of this encounter (statuses as of 11/24/2023) Resolved Problems Problem Noted Date Diagnosed Date [...] as of this encounter (statuses as of 11/24/2023) Immunizations Name Administration Dates Next Due COVID-19 [...] Mdck 12/05/2016 Seasonal Influenza, Trivalen t, (IIV3), with Preserv, [...] Care Team (Late st Contact Info) Description 11/25/2023 8:00 AM EDT Office Visit Neurology [facility] [place] [address] [place] [address] Kelly Waddell PA-C [address] [facility] [place] [address] 12/03/2023 8:30 AM EDT Appointment Radiology, [facility] [address] [place] [address] 12/09/2023 10:00 AM EDT [facility] [address] [place] [address] Oriana Isaacs PA-C [address] [place] [address] 12/22/2023 1:40 PM EDT Office Visit Family [facility] [address] [place] [address] Keagan Sanchez MD [address] [place] [address] 12/29/2023 12:30 PM EDT [facility] Visit [facility] [place], [facility] [address] [place] [address] Nika Guevara, RN [address] [place] [address] 06/07/2024 11:00 AM EDT Office Visit Cardiology [facility] [address] [facility] [address] [place] [phone] Angela Littlejohn CRNP [address] [place] [address] 08/09/2024 10:00 AM EDT Office Visit Orthopaedics [facility] [address] [place] [address] Sami Angelo DO [address] [place] [address] 10/07/2024 2:40 PM EDT Office Visit Dermatology [facility] [address] [place] [phone] Alden Ann PA-C [address] [place] [address] Scheduled Procedures Name Priority Associated Diagnoses Date/Ti [...] 2023 12/24/2021, 07/11/2021, 01/17/2021, Additional history exists Influenza Vaccine (FLU shot) (#1) 2023 01/21/2023, 12/03/2021, 12/15/2020, Additional history exists DXA Scan 01/02/2024 01/01/2022, [...] D LEVEL ONCE IN A LIFETIME-USE SMARTSET# 28596 Completed 01/28/2022, 02/21/2015, 12/30/2011 RETIRED - COLONOSCOPY-EVERY 5 YRS AGES 18-100 Discontinued 04/18/2022, 04/18/2022, 08/10/2013, Additional history exists HPV (Gardasil) Vaccine Aged [...] this encounter Medical Devices Implanted Type Area Apparatus Engineering Technologist Device Identifier Shelf Expiration Date Model / Serial / Lot Medtronic-05/27/2023 Implanted: (Quantity not on file) Neurostimulator MEDTRONIC : NEUROLOGIC PAIN 05/26/2049 11837 / / [id number] Screw Jami Lacie 3 Ti Set - [id number] Implanted:Qt y: 6 on 03/10/2012 at OR [facility] [place] Bilateral : Spine Lumbar LEVON : SPINE [id number] / / Screw Lacie Pa Ti 6.5x50mm - [id number] Implanted:Qt y: 4 on 03/10/2012 at OR [facility] [place] Bilateral : Spine Lumbar LEVON : SPINE [id number] / / Grindstone Xia3 7.0 X 40mm Screws Implanted:Qt y: 2 on 03/10/2012 at OR [facility] [place] Bilateral : Spine Lumbar [id number] / / Shaun Lacie 3 Ti 6x70mm - [id number] Implanted:Qt y: 1 on 03/10/2012 at OR [facility] [place] N/A: Spine Lumbar LEVON : SPINE [id number] / / Shaun Lacie 3 Ti Max 6x80mm - [id number] Implanted:Qt y: 1 on 03/10/2012 at OR [facility] [place] N/A: Spine Lumbar LEVON : SPINE [id number] / / 9 X 25 X 4 - 8 Avs Wedge Nose Cage Implanted:Qt y: 1 on 03/10/2012 at OR [facility] [place] N/A: Spine Lumbar [id number] / / Stent Synergy Xd Mr 2.97c48ap - [id number] Implanted:Qt y: 1 on 09/20/2020 at [facility] [place] [employer] [id number] 04/18/2022 [id number] 6220 / / [id number] Stent Synergy Xd Mr 2.51y59ig - [id number] Implanted:Qt y: 1 on 09/20/2020 at [facility] [place] [employer] [id number] 04/25/2022 [id number] 2220 / / [id number] Screw Locking 4.5mm 15mm - [id number] Implanted:Qt y: 1 on 07/11/2022 by Sami Angelo DO at OR [facility] [place] Right: Shoulder [employer] 11/22/2025 108-4515 / / [id number] Bseplate Jasmeet Cmntlss W Scrw - [id number] Implanted:Qt y: 1 on 07/11/2022 by Sami Angelo DO at OR [facility] [place] Right: Shoulder [employer] 03/24/2027 105-0029 / / [id number] Glenosphere Rev Thee W Scrw - [id number] Implanted:Qt y: 1 on 07/11/2022 by Sami Angelo DO at OR [facility] [place] Right: Shoulder [employer] 04/24/2027 105-3610 / / [id number] Screw Locking 4.5mm 15mm - [id number] Implanted:Qt y: 1 on 07/11/2022 by Sami Angelo DO at OR [facility] [place] Right: Shoulder [employer] 03/24/2027 108-4515 / / [id number] Screw Locking 4.5mm 20mm - [id number] Implanted:Qt y: 1 on 07/11/2022 by Sami Angelo DO at OR [facility] [place] Right: Shoulder [employer] 03/24/2027 108-4520 / / [id number] Humelock Ii Stem Ta6v Size 12 Cementless Implanted:Qt y: 1 on 07/11/2022 by Sami Angelo DO at OR [facility] [place] Right: Shoulder [employer] 10/22/2026 311-0212 / / [id number] Cortical Screw Ta6v, 5mm, L. 24mm Implanted:Qt y: 1 on 07/11/2022 by Sami Angelo DO at OR [facility] [place] Right: Shoulder [employer] 09/22/2023 107-4524 / / [id number] Humeral Cup 135/145 Degree, Standard, 36/+6 Implanted:Qt y: 1 on 07/11/2022 by Sami Angelo DO at OR [facility] [place] Right: Shoulder 02/21/2025 313-0706 / / [id number] Screw Locking 4.5mm 20mm - [id number] Implanted:Qt y: 1 on 07/11/2022 by Sami Angelo DO at OR [facility] [place] Right: Shoulder FX SOLUTIONS [...] File Name [facility] p Communication Donny Pace Spouse Health Care Agent Care Teams Rehabilitation Coordinator Relationship Specialty Start Date End Date Keagan Sanchez MD [address] [place] [address] PCP - General Family Medicine 10/07/23 documented as of this encounter
--- OUTSIDE RECORDS SUMMARY | 2024-03-06 12:34 | External Medical Summary | Summary of Care ---
Author Name Unknown Organization [facility] Address [address] [facility] [place] [address] Phone [phone] Care Team Providers Care Cabinet Installer Name Role Phone Keagan Sanchez MD Primary Care Provider [phone] Reason for Visit * Reason Onset Date Comments Follow Up Medication Administration 11/25/2023 Flu an d/or Pneumo Inj Encounter Details Date Type Department Care Team (Late st Contact Info) Description 11/25/2023 8:00 AM EDT Office Visit Neurology [facility] [address] [place] [address] Kelly Waddell PA-C [address] [facility] [place] [address] Migraine without aura and without status migrainosus, not intractable*; Need for prophylactic vaccination and inoculation against influenza Allergies Active Allergy Reactions Criticality Noted Date Comments Adhesive Tape 03/31/2023 Other Reaction(s): Tape- redness, paper tape/coban "ok", ARON-FOWPSEH-ACAKZ TAPE OK OR COBAN Clarithromycin High 03/31/2023 Other Reaction(s): Rash, diarrhea, RASH,DIARRHEA Duloxetine Hcl Flushing,Nausea/vomi tin g High 10/20/2019 Erythromycin Base Rash 03/14/2004 Orlistat Low 03/31/2023 Other Reaction(s): GI UPSET Penicillins Rash 03/14/2004 Prednisone Other (Please comment) High 10/10/2023 pancreatitis Sulfa Antibiotics Rash 03/14/2004 documented as of this encounter (statuses as of 11/25/2023) Medications Medication Sig Dispensed Refills Start Date [...] for Pain, Moderate. 90 Tablet 4 Active Levothyroxine Sodium 112 MCG Oral Tablet (Levoxyl) TAKE 1 TABLET BY MOUTH DAILY AT LEAST 30 MINUTES PRIOR TO FIRST MEAL OF THE DAY OR OTHER MEDICATIONS 90 Tablet 1 4 11/21/19 25 Active Topiramate 25 MG Oral Tablet (topAMAX) Take 2 tablets nightly 180 Tablet 2 4 Active LORazepam 0.5 MG Oral Tablet (Ativan) 4 11/25/19 24 Discontinued Topiramate 25 MG Oral Tablet (topAMAX) TAKE TWO TABLETS BY MOUTH AT BEDTIME 180 Tablet 1 4 11/25/19 24 Discontinued(Re fill) documented as of this encounter (statuses as of 11/25/2023) Active Problems Problem Noted Date Diagnosed Date [...] of [place] heart without angina pectoris 09/27/2020 S/P angioplasty [...] as of this encounter (statuses as of 11/25/2023) Resolved Problems Problem Noted Date Diagnosed Date [...] as of this encounter (statuses as of 11/25/2023) Immunizations Name Administration Dates Next Due COVID-19 [...] Sign Reading Time Taken Comments Blood Pressure 92/58 11/25/2023 7:56 AM EDT Pulse 62 11/25/2023 7:56 AM EDT Temperature 35.8 C (96.5 F) 11/25/2023 7:56 AM ED T Respiratory Rate 18 11/25/2023 7:56 AM EDT Oxygen Saturation 95% 11/25/2023 7:56 AM EDT Inhaled Oxygen Concentration - - Weight 84.2 kg (185 lb 9.6 oz) 11/25/2023 7:56 A M EDT Height - - Body Mass Index 31.86 11/19/2023 9:59 AM EDT documented in this encounter Functional [...] this encounter Patient Instructions * Patient Instructions* Elinor Hernandez LPN - 11/25/2023 8:35 AM EDT ~~PATIENT INSTRUCTIONS FOR FLU SHOT~~ Possible side effects of influenza vaccine, (flu shot), are usually mild and include: 1. Soreness or redness at injection site 2. Low grade fever 3. Body aches You may use Tylenol/Acetaminophen as needed for these symptoms. LET YOUR DOCTOR KNOW IMMEDIATELY IF YOU HAVE DIFFICULTY BREATHING OR SWALLOWING, EXPERIENCE ITCHINGOF FEET OR HANDS, HAVE SWELLING OF EYES, FACE OR INSIDE OF NOSE. documented in this encounter Progress Notes * Elinor Hernandez LPN - 11/25/2023 8:32 AM EDT PRE - ADMINISTRATION DOCUMENTATION Are you experiencing any cold symptoms or fever? No Have you had Guillain-Moca Syndrome (an illness that causes paralysis) within the last 6 weeks? No Have you had the flu shot in the past? YES Have you ever had a reaction to the flu shot? No Elinor Hernandez LPN, 11/25/2023 8:32 AM Immunization Administration Documentation Time Out Procedure Performed: Yes Patient Identified (Ask Name/Date of ): Yes Does the patient have a fever greater than 101 degrees today? No Patient allergic to latex? No VFC Stock: No Immunization(s) verified: Yes, Immunization Name: Flu, VIS Sheet(s) given: Yes Verified Side and Site: Yes Verified Shot(s) with Parent(s)/Patient: Yes * Kelly Waddell PA-C - 11/25/2023 8:00 AM EDT HISTORY & PHYSICAL EXAMINATION - NEUROLOGY Name: Shalini Pace Date: 11/25/2023 Time: 6:42 AM Chief Complaint Patient presents with Follow Up SUBJECTIVE: Shalini Pace is a 63 year old female who returns today for evaluation. PMH includes HLD, prediabetes, hypothyroidism, CAD s/p stent, HTN, degenerative disc disease, anxiety and depression. Takes daily ASA 81mg. She was last seen by Dr. Sibley in November 2019 for migraine headaches. Presents today with her . States she has 1-2 migraines monthly. Migraine typically starts atright base of head, then wraps around behind her right eye. Pressure/throbbing in nature. Vision may become blurry/ tunnel vision. Associated with nausea and photophobia. Lays down in a dark room. Typically takes Tylenol for rescue. Occasionally uses Tramadol, which she is prescribed for back pain. Takes gabapentin 800mg TID for chronic low back pain. Prior to Topamax, was having migraine 1-2x/ week. Denies difficulty concentrating, and kidney stones. Drinks 2 cups iced coffee daily, Pepsi, and occasional iced tea. MRI brain w/wo contrast 11/02/19: Chronic microvascular ischemic disease, tiny lacunar infarct right cerebellar hemisphere, lacunar infarct right frontoparietal periventricular white matter Prior Medications: Amitriptyline, mag ox/riboflavin Allergies: Clarithromycin, Duloxetine hcl, Prednisone, Adhesive tape, Erythromycin base, Penicillins, Sulfa antibiotics, and Orlistat Problem list: Patient Active Problem List Diagnosis Migraine with aura and without status migrainosus, not intractable Adjustment disorder with depressed mood Anxiety states Gastroparesis Other specified gastritis without mention of hemorrhage DDD (degenerative disc disease), cervical Degeneration of lumbosacral intervertebral disc Thoracic and lumbosacral neuritis Lumbosacral spondylosis Displacement of lumbar intervertebral disc without myelopathy DYSLIPIDEMIA, GOAL TO BE DETERMINED Postlaminectomy syndrome, lumbar Hypotonic bladder Chronic superficial gastritis without bleeding MEDICATION USE AGREEMENT Lumbar radiculopathy Spinal stenosis of lumbar region Gastro-esophageal reflux disease without esophagitis Mixed hyperlipidemia Major depressive disorder, single episode, unspecified Status post insertion of drug-eluting stent into left anterior descending (LAD) artery Coronary artery disease involving [place] coronary artery of [place] heart without angina pectoris S/P angioplasty with stent Other specified hypothyroidism History of 2019 novel coronavirus disease (COVID-19) Personal history of fall Age-related osteoporosis without current pathological fracture S/P reverse total shoulder arthroplasty, right Abdominal pain Diverticulitis Hypokalemia Urinary retention Prediabetes Essential (primary) hypertension Hypothyroidism Neurostimulator device in situ Drug-induced acute pancreatitis without infection or necrosis Anxiety and depression Coronary artery disease due to lipid rich plaque Past Medical History: Past Medical History: Diagnosis Date Acute viral [...] Vertebral fracture, pathological 08/30/2009 No longer current Current Outpatient Medications: Current Outpatient Medications Medication Sig Dispense Refill Cholecalciferol (VITAMIN D) 1000 UNIT Capsule Take 1 Cap by mouth daily. 30 Cap 11 Sennosides (SENNA) 8.6 MG Tablet TAKE 2 TABLETS BY MOUTH DAILY NEEDED FOR CONSTIPATION. 60 Tab 5 Aspirin 81 MG Oral Tablet Chewable Take 1 Tab by mouth daily. 30 Tab 11 Pantoprazole Sodium 40 MG Oral Tablet Delayed Release (Protonix) TAKE ONE TABLET BY MOUTH EVERY DAY30 MNUTES PRIOR TO FIRST MEAL OF THE DAY, DO NOT CRUSH SPLIT OR CHEW TABLET 90 Tablet 3 Atorvastatin Calcium 80 MG Oral Tablet (Lipitor) TAKE ONE TABLET BY MOUTH EVERY EVENING 90 Tablet 3 Nitroglycerin 0.4 MG Sublingual Tablet Sublingual (Nitrostat) Place 1 Tablet under the tongue every5 minutes as needed for Pain, Chest. 25 Tablet 1 amLODIPine Besylate 5 MG Oral Tablet (Norvasc) TAKE ONE TABLET BY MOUTH IN THE MORNING 90 Tablet 3 Sucralfate 1 GM Oral Tablet (Carafate) TAKE ONE TABLET BY MOUTH IN THE MORNING AND TAKE ONE TABLET BEFORE BEDTIME 180 Tablet 3 Torsemide 10 MG Oral Tablet (Demadex) Take 1 Tablet by mouth in the morning. 30 Tablet 1 Levalbuterol HCl 1.25 MG/3ML Inhalation Nebulization Solution (Xopenex) Inhale 1 Ampule via nebulizer every 4 hours as needed for Wheezing. 72 mL 12 Metoprolol Succinate ER 25 MG Oral Tablet Extended Release 24 Hour (toPROL XL) TAKE ONE TABLET BY MOUTH IN THE MORNING. 90 Tablet 3 Levalbuterol Tartrate 45 MCG/ACT Inhalation Aerosol (Xopenex HFA) Inhale 2 Puffs by mouth every 4 hours as needed for Wheezing. 15 g 12 hydrOXYzine HCl 50 MG Oral Tablet Take 1 Tablet by mouth 3 times a day as needed for Anxiety (hyperventilation). 30 Tablet 0 Baclofen 20 MG Oral Tablet TAKE ONE TABLET BY MOUTH FOUR TIMES A DAY (MORNING, NOON, EVENING AND BEDTIME) 360 Tablet 0 Metoclopramide HCl 10 MG Oral Tablet (Reglan) TAKE ONE TABLET BY MOUTH THREE TIMES A DAY THIRTY MINUTES BEFORE MEALS 270 Tablet 0 Gabapentin 800 MG Oral Tablet (Neurontin) Take 1 Tablet by mouth in the morning and 1 Tablet at noon and 1 Tablet before bedtime. 270 Tablet 1 Sertraline HCl 100 MG Oral Tablet (Zoloft) LORazepam 0.5 MG Oral Tablet (Ativan) Famotidine 20 MG Oral Tablet (Pepcid) Take 1 Tablet by mouth in the morning and 1 Tablet before bedtime. 60 Tablet 11 metFORMIN HCl 500 MG Oral Tablet (Glucophage) Take 1 Tablet by mouth 2 times a day with morning andevening meals. 60 Tablet 4 Ezetimibe 10 MG Oral Tablet (Zetia) TAKE ONE TABLET BY MOUTH EVERY MORNING 90 Tablet 3 traMADol HCl 50 MG Oral Tablet (Ultram) Take 2 Tablets by mouth every 6 hours as needed for Pain, Moderate. 90 Tablet 0 Topiramate 25 MG Oral Tablet (topAMAX) TAKE TWO TABLETS BY MOUTH AT BEDTIME 180 Tablet 1 Levothyroxine Sodium 112 MCG Oral Tablet (Levoxyl) TAKE 1 TABLET BY MOUTH DAILY AT LEAST 30 MINUTESPRIOR TO FIRST MEAL OF THE DAY OR OTHER MEDICATIONS 90 Tablet 1 Lactulose 10 GM/15ML Oral Solution (Constulose) Take 15 mL by mouth 2 times a day as needed for Constipation. severe constipation (Patient not taking: Reported on 11/19/2023) 237 mL 1 No current facility-administered medications for this visit. Family History: Family History Problem Relation Name Age of Onset Heart Disorder Father [place]--triple bipass SOCIAL HISTORY: Social History Tobacco Use Smoking status: Never Smokeless tobacco: Never Vaping Use Vaping status: Never Used Substance Use Topics Alcohol use: No Drug use: Never REVIEW OF SYSTEMS: As above OBJECTIVE: Physical Examination: BP 92/58 (BP Site: Right Arm, BP Position: Sitting, BP Cuff Size: Regular) | Pulse 62 | Temp 35.8 C (96.5 F) (Tympanic) | Resp 18 | Wt 84.2 kg (185 lb 9.6 oz) | SpO2 95% | BMI 31.86 kg/m | BSA 1.95 m General appearance: healthy, alert, no distress Physical Exam: Constitutional: Appearance normally developed,well nourished,no deformities,well groomed Head and face: normocephalic,atraumatic Respiratory: normal effort,clear to auscultation Cardiovascular: normal heart sounds and regular rhythm Psychiatric: normal judgement and insight,normal mood,normal affect NEUROLOGIC EXAMINATION: Mental Status Exam: alert,oriented to time, place, person,normal recent memory,normal remote memory,normal attention span,normal concentration,normal language,normal fund of knowledge Cranial Nerves: CN 2,3 - PERRL CN 3, 4, 6 - Extra-ocular Movements Intact,no nystagmus CN 5 - Facial sensation intact and equal bilaterally CN 7 - no facial assymetry CN 8 - hearing grossly intact Coordination: normal to [id number] Gait/station: Orthopedic gait 2/2 back pain Muscle exam: Arm Right Left Leg Right Left Deltoid 5/5 5/5 Iliopsoas 5/5 5/5 Biceps 5/5 5/5 Triceps 5/5 5/5 Reflexes: Biceps BR Patellar Achilles Right 2+ 2+ 1 1 Left 2+ 2+ 1 1 Sensation: Intact light touch LABORATORY: Results for orders placed or performed during the hospital encounter of 11/21/23 CBC Result Value Ref Range WBC 3.68 (L) 4.00 - 10.80 K/uL RBC 4.19 3.85 - 5.15 M/uL HGB 11.6 (L) 12.0 - 15.3 g/dL HCT 35.3 (L) 36.0 - 45.2 % MCV 84.2 81.5 - 97.5 fL MCH 27.7 27.0 - 34.0 pg MCHC 32.9 32.0 - 36.0 g/dL RDW 14.1 11.5 - 15.5 % PLT 168 140 - 400 K/uL MPV 9.5 6.6 - 11.1 fL Results for orders placed or performed during the hospital encounter of 10/31/23 BASIC METABOLIC PANEL Result Value Ref Range BUN 10 6 - 20 mg/dL Creatinine 0.9 0.5 - 1.0 mg/dL Estimated Glomerular Filtration Rate 77 >=60 mL/min Sodium 133 (L) 135 - 146 mmol/L Potassium 3.9 3.5 - 5.1 mmol/L Chloride 99 98 - 107 mmol/L CO2 21 (L) 22 - 32 mmol/L Anion Gap 13 7 - 15 mmol/L Glucose 74 70 - 120 mg/dL Calcium 9.0 8.4 - 10.2 mg/dL Results for orders placed or performed during the hospital encounter of 08/23/23 LIPID PANEL WITH DIRECT LDL IF TG IS HIGH Result Value Ref Range Triglycerides 77 <=174 mg/dL Cholesterol 98 <200 mg/dL HDL Cholesterol 43 (L) >49 mg/dL Non-HDL Cholesterol 55 <=159 mg/dL LDL Cholesterol 40 <=129 mg/dL Lab Results Component Value Date/Time HEMOGLOBIN A1C - [facility] 6.0 (H) 07/17/2023 09:07 AM HEMOGLOBIN A1C - [facility] 6.0 (H) 02/12/2023 08:52 AM HEMOGLOBIN A1C - [facility] 5.1 09/20/2020 06:05 AM HEMOGLOBIN A1C - [facility] 5.2 06/23/2014 09:27 AM HEMOGLOBIN A1C - [facility] 5.5 04/04/2008 12:14 PM Lab Results Component Value Date/Time TSH - [facility] 3.36 07/17/2023 09:07 AM TSH - [facility] 2.19 10/30/2022 05:22 PM TSH - [facility] 2.37 09/10/2022 09:42 AM TSH - [facility] 2.74 10/20/2019 08:59 AM TSH - [facility] 3.86 03/01/2019 02:10 PM TSH - [facility] 3.92 09/23/2017 02:41 PM Review of prior Studies: MRI Brain 11/02/19 IMPRESSION As compared to 2012: Progressive frontoparietal subcortical, deep and periventricular white matter T2/FLAIR hyperintensities, which are nonspecific however most commonly associated with chronic microvascular ischemic disease. New tiny chronic lacunar infarct in the right cerebellar hemisphere Tiny focus of susceptibility artifact in the right frontoparietal periventricular white matter is likely a lacunar infarct related microhemorrhage, also new. ASSESSMENT/PLAN: Shalini Pace is a 63 year old female with hx 2 lacunar infarcts on daily ASA, and migraine without aura. - Continue Topamax 50mg HS monitoring for cognitive slowing and kidney stones - Tylenol PRN for rescue; limit Tramadol use Follow up in 12 months or sooner if needed. I spent a total of 30 minutes on the date of service inpreparation, delivery, and documentation of the care provided to Shalini Pace. Rafal Ziegler DO available for direct consultation. Kelly Waddell PA-C, Neurology [facility] [place] [place] [address] [facility] [place] [address] 11/25/2023 8:44 AM documented in this encounter Nursing Notes * Elinor Hernandez LPN - 11/25/2023 7:56 AM EDT Patient verified identity by spelling of last name and date. Chief Complaint Patient presents with Follow Up documented in this encounter Miscellaneous Notes * Addendum Note - Elinor Hernandez LPN - 11/25/2023 8:49 AM EDTAddended by: ELINOR HERNANDEZ on: 11/25/2023 08:49 AM Modules accepted: Orders documented in this encounter Plan of Treatment Upcoming Encounters Date Type Department Care Team (Late st Contact Info) Description 12/03/2023 8:30 AM EDT Appointment Radiology, [place] [place] [address] [place] [address] 12/09/2023 10:00 AM EDT Home Visit [facility] [address] [place] [address] Oriana Isaacs PA-C [address] [place] [address] 12/22/2023 1:40 PM EDT Office Visit [address] [phone] Keagan Sanchez MD [address] [place] [address] 12/29/2023 12:30 PM EDT Home Visit [facility] [address] [place] [address] Nika Guevara RN [address] [place] [address] 06/07/2024 11:00 AM EDT Office Visit Cardiology [facility] [address] [facility] [address] [place] [address] Angela Littlejohn CRNP [address] [place] [address] 08/09/2024 10:00 AM EDT Office [facility] [place] [address] [place] [address] Sami Angelo DO [address] [place] [address] 10/07/2024 2:40 PM EDT Office Visit Dermatology [facility] [address] [place] [address] Alden Ann PA-C [address] [place] [address] 11/25/2024 11:00 AM EDT Office Visit Neurology [facility] [address] [facility] [place] [address] Kelly Waddell PA-C [address] [place] [address] Scheduled Procedures Name Priority Associated Diagnoses Date/Ti me COLONOSCOPY FLEXIBLE PROXIMA L DIAGNOSTIC Recall Family history of colonic polyps Health Maintenance Due Date Last Done Comments HIV Screening 1976 Albumin/Creatinine Ratio 10/15/1979 Cologuard 2006 Sigmoidoscopy 2006 Zoster Vaccines (1 of 2) 10/15/2011 Fecal Occult Blood Test 08/03/2014 08/03/2013, 10/16 /2013 Depression Monitoring 03/05/2023 03/05/2022 *BISPHONATE OR OTHER [...] D LEVEL ONCE IN A LIFETIME-USE SMARTSET# [id number] Completed 01/28/2022, 02/21/2015, 12/30/2011 RETIRED - COLONOSCOPY-EVERY [...] this encounter Medical Devices Implanted Type Area Farm Equipment Mechanic Apprentice Device Identifier Shelf Expiration Date Model / Serial / Lot Medtronic-05/27/2023 Implanted: (Quantity not on file) Neurostimulator MEDTR[employer]IC : NEUROLOGIC PAIN 05/26/2049 [id number] / / [id number] Screw Jami Lacie 3 Ti Set - [id number] Implanted:Qt y: 6 on 03[place]10[place]2012 [place] [facility] : Spine Lumbar LEVON : SPINE [id number] / / Screw Lacie Pa Ti 6.5x50mm - [id number] Implanted:Qt y: 4 on 03/10/2012 at [facility] Bilateral : Spine Lumbar LEVON : SPINE [id number] / / Levon Xia3 7.0 X 40mm Screws Implanted:Qt y: 2 on 03/10/2012 at [facility] Bilateral : Spine Lumbar [id number] / / Shaun Lacie 3 Ti 6x70mm - [id number] Implanted:Qt y: 1 on 03/10/2012 [place] [facility]A: Spine Lumbar LEVON : SPINE [id number] / / Shaun Lacie 3 Ti Max 6x80mm - [id number] Implanted:Qt y: 1 on 03/10/2012 [place] [facility] [place]/A: Spine Lumbar LEVON : SPINE [id number] / / 9 X 25 X 4 - 8 Avs Wedge Nose Cage Implanted:Qt y: 1 on 03/10/2012 at [place] [facility] N/A: Spine Lumbar [id number] / / Stent Synergy Xd Mr 2.18q46dz - [id number] Implanted:Qt y: 1 on 09/20/2020 at [facility] [place] It Is [id number] 04/18/2022 [id number] / / [id number] Stent Synergy Xd Mr 2.53g29eu - [id number] Implanted:Qt y: 1 on 09/20/2020 at [facility] [place] It Is [id number] 04/25/2022 [id number] / / [id number] Screw Locking 4.5mm 15mm - [id number] Implanted:Qt y: 1 on 07/11/2022 by Sami Angelo DO [place] [facility] Right: Shoulder [employer] 11/22/2025 [id number] / / [id number] Bseplate Jasmeet Cmntlss W Scrw - [id number] Implanted:Qt y: 1 on 07/11/2022 by Sami Angelo DO [place] [facility] [place]: Shoulder [employer] 03/24/2027 105-0029 / / [id number] Glenosphere Rev Thee W Scrw - [id number] Implanted:Qt y: 1 on 07/11/2022 by Sami Angelo DO [place] [facility] [place]: Shoulder [employer] 04/24/2027 [id number] / / [id number] Screw Locking 4.5mm 15mm - [id number] Implanted:Qt y: 1 on 07/11/2022 by Sami Angelo DO at [place] [facility] [place]: Shoulder [employer] 03/24/2027 108-4515 / / [id number] Screw Locking 4.5mm 20mm - [id number] Implanted:Qt y: 1 on 07/11/2022 by Sami Angelo DO at [place] [facility] [place]: Shoulder [employer] 03/24/2027 [id number] / / [id number] Humelock Ii Stem Ta6v Size 12 Cementless Implanted:Qt y: 1 on 07/11/2022 by Sami Angelo DO at [place] [facility] [place]: Shoulder [employer] 10/22/2026 [id number] / / [id number] Cortical Screw Ta6v, 5mm, L. 24mm Implanted:Qt y: 1 on 07/11/2022 by Sami Angelo DO at [place] [facility] [place]: Shoulder [employer] 09/22/2023 107-4524 / / [id number] Humeral Cup 135/145 Degree, Standard, 36/+6 Implanted:Qt y: 1 on 07/11/2022 by Sami Angelo DO at [place] [facility] [place]: Shoulder 02/21/2025 [id number] / / [id number] Screw Locking 4.5mm 20mm - [id number] Implanted:Qt y: 1 on 07/11/2022 by Sami Angelo DO at [place] [facility] [place]: Shoulder [employer] 03/24/2027 108-4520 / / [id number] documented as of this encounter Visit Diagnoses Diagnosis Migraine without aura and without status migrainosus, not intractable- Primary Migraine without aura, without mention of intractable migraine without mention of status migrainosus Need for prophylactic vaccination and inoculation against influenza documented in this encounter Advance Directives * [...] Care Agent [phone] (Mobile) Care Teams Cabinet Installer Relationship Specialty Start Date End Date Keagan Sanchez MD [address] [place] [phone] PCP - General Family Medicine 10/07/23 documented as of this encounter
--- OUTSIDE RECORDS SUMMARY | 2024-03-06 12:34 | External Medical Summary | Summary of Care ---
Author Name Unknown Organization [facility] Address [address] [facility] [place] [address] Phone [phone] Care Team Providers Care Group Leader [employer] Testing Name Role Phone Keagan Sanchez MD Primary Care Provider [phone] Reason for Visit * Reason Onset Date Comments Follow Up Medication Administration 11/25/2023 Flu an d/or Pneumo Inj Encounter Details Date Type Department Care Team (Late st Contact Info) Description 11/25/2023 8:00 AM EDT Office Visit Neurology [facility] [address] [place] [address] Kelly Waddell PA-C 21 [facility] [place] [address] Migraine without aura and without status migrainosus, not intractable*; Need for prophylactic vaccination and inoculation against influenza Allergies Active Allergy Reactions Criticality Noted Date Comments Adhesive Tape 03/31/2023 Other Reaction(s): Tape- redness, paper tape/coban "ok", [id number] TAPE OK OR COBAN Clarithromycin High 03/31/2023 [...] Oral Tablet (Zetia)Indicatio ns:Coronary artery disease involving [place] coronary artery of [place] heart with unstable angina pectoris (HCC) TAKE [...] hypothyroidism 04/12/2021 Coronary artery disease invo lving tonkawa coronary artery of tonkawa heart without angina pectoris 09/27/2020 S/P angioplasty [...] symptoms or fever? No Have you had Guillain-[place] Syndrome (an illness that causes paralysis) within [...] descending (LAD) artery Coronary artery disease involving [place] coronary artery of [place] heart without angina pectoris S/P angioplasty with [...] Name Age of Onset Heart Disorder Father MO--triple bipass SOCIAL HISTORY: Social History Tobacco Use [...] - hearing grossly intact Coordination: normal to gamwni-txal-rqyzjv Gait/station: Orthopedic gait 2/2 back pain Muscle [...] for direct consultation. Kelly Waddell PA-C, Neurology [facility] [place] [address] [facility] [place] [address] 11/25/2023 8:44 AM documented in this encounter [...] 12/03/2023 8:30 AM EDT Appointment Radiology, [facility] [address] [place] [address] 12/09/2023 10:00 AM EDT Home Visit [facility] [address] [place] [address] Oriana Isaacs PA-C [address] [place] [address] 12/22/2023 1:40 PM EDT Office Visit [address] [phone] Keagan Sanchez MD [address] [place] [address] 12/29/2023 12:30 PM EDT Home Visit [facility] [address] [place] [address] Nika Guevara RN [address] [place] [address] 06/07/2024 11:00 AM EDT Office Visit Cardiology [facility] [address] [facility] [address] [place] [address] Angela Littlejohn CRNP [address] [place] [address] 08/09/2024 10:00 AM EDT Office Visit [facility] [place] 16 [place] [address] Sami Angelo DO 16 [place] [address] 10/07/2024 2:40 PM EDT Office Visit Dermatology [facility] 68 [place] [address] Alden Ann PA-C 68 [place] [address] 11/25/2024 11:00 AM EDT Office Visit Neurology [facility] 200 [facility] [place] [address] Kelly Waddell PA-C 21 [place] [address] Scheduled Procedures Name Priority Associated Diagnoses Date/Ti [...] D LEVEL ONCE IN A LIFETIME-USE SMARTSET# 46196 Completed 01/28/2022, 02/21/2015, 12/30/2011 RETIRED - COLONOSCOPY-EVERY [...] this encounter Medical Devices Implanted Type Area Electrician Wiring Device Identifier Shelf Expiration Date Model / Serial / Lot Medtronic-05/27/2023 Implanted: (Quantity not on file) Neurostimulator MEDTRONIC : NEUROLOGIC PAIN 05/26/2049 [id number] / / [id number] Screw Jami Lacie 3 Ti Set - [id number] Implanted:Qt y: 6 on 03/10/2012 at [facility] Bilateral : Spine Lumbar LEVON : SPINE [id number] / / Screw Lacie Pa Ti 6.5x50mm - [id number] Implanted:Qt y: 4 on 03/10/2012 at [facility] Bilateral : Spine Lumbar LEVON : SPINE [id number] / / Levon Xia3 7.0 X 40mm Screws Implanted:Qt y: 2 on 03/10/2012 at [facility] Bilateral : Spine Lumbar [id number] / / Shaun Lacie 3 Ti 6x70mm - [id number] Implanted:Qt y: 1 on 03/10/2012 at OR [facility] N/A: Spine Lumbar LEVON : SPINE [id number] / / Shaun Lacie 3 Ti Max 6x80mm - [id number] Implanted:Qt y: 1 on 03/10/2012 at OR [facility] N/A: Spine Lumbar LEVON : SPINE [id number] / / 9 X 25 X 4 - 8 Avs Wedge Nose Cage Implanted:Qt y: 1 on 03/10/2012 at OR [facility] N/A: Spine Lumbar [id number] / / Stent Synergy Xd Mr 2.17d97ul - [id number] Implanted:Qt y: 1 on 09/20/2020 at [facility] katena [id number] 04/18/2022 [id number] / / [id number] Stent Synergy Xd Mr 2.58k39bx - [id number] Implanted:Qt y: 1 on 09/20/2020 at [facility] katena [id number] 04/25/2022 [id number] 2220 / / [id number] Screw Locking 4.5mm 15mm - [id number] Implanted:Qt y: 1 on 07/11/2022 by Sami Angelo DO at OR [facility] Right: Shoulder [employer] SOL[employer]IONS SAS 11/22/2025 108-4515 / / [id number] Bseplate Jasmeet Cmntlss W Scrw - [id number] Implanted:Qt y: 1 on 07/11/2022 by Sami Angelo DO at OR [facility] Right: Shoulder [employer] 03/24/2027 105-0029 / / [id number] Glenosphere Rev Thee W Scrw - [id number] Implanted:Qt y: 1 on 07/11/2022 by Sami Angelo DO at OR [facility] Right: Shoulder [employer] 04/24/2027 105-3610 / / [id number] Screw Locking 4.5mm 15mm - [id number] Implanted:Qt y: 1 on 07/11/2022 by Sami Angelo DO at OR [facility] Right: Shoulder [employer] 03/24/2027 108-4515 / / [id number] Screw Locking 4.5mm 20mm - [id number] Implanted:Qt y: 1 on 07/11/2022 by Sami [...] / [id number] Screw Locking 4.5mm 20mm - [id number] Implanted:Qt y: 1 on 07/11/2022 by Sami [...] Care Agent [phone] (Mobile) Care Teams Group Leader [employer] Testing Relationship Specialty Start Date End Date Keagan Sanchez MD [address] [place] [address] PCP - General Family Medicine 10/07/23 documented as of this encounter
--- OUTSIDE RECORDS SUMMARY | 2024-03-06 12:34 | External Medical Summary | Summary of Care ---
Author Name Unknown Organization [facility] Address [address] [facility] [place] [address] Phone [phone] Care Team Providers Care Bow Rehairer Name Role Phone Keagan Sanchez MD Primary Care Provider [phone] Reason for Visit * Reason Onset Date Comments [facility]: Maintenance 11/21/2023 Encounter Details Date Type Department Care Team (Late st Contact Info) Description 11/21/2023 11:15 AM EDT Scheduled Telephone [facility] [place] [facility] [address] [place] [address] Coordinator, [facility] 240[address] [place] [address] Allergies Active Allergy Reactions Criticality Noted Date Comments Adhesive Tape 03/31/2023 Other Reaction(s): Tape- redness, paper tape/coban "ok", [id number] TAPE OK OR COBAN Clarithromycin High 03/31/2023 [...] 08/26/2023 Active Famotidine 20 MG Oral Tablet (Pepcid)Indicatio [...] Oral Tablet (Zetia)Indication s:Coronary artery disease involving little shell tribe coronary artery of little shell tribe heart with unstable angina pectoris (HCC) TAKE ONE TABLET BY MOUTH EVERY MORNING 90 Tablet 3 11/07/2023 5 Active traMADol HCl 50 MG Oral Tablet (Ultram)Indicatio ns:Postlaminectom y syndrome, lumbar Take 2 Tablets by mouth every 6 hours as needed for Pain, Moderate. 90 Tablet 11/14/2023 Active Levothyroxine Sodium 112 MCG Oral Tablet (Levoxyl) TAKE 1 TABLET BY MOUTH DAILY AT LEAST 30 MINUTES PRIOR TO FIRST MEAL OF THE DAY OR OTHER MEDICATIONS 90 Tablet 1 06/03/2023 Discontinue d(Refill) documented as of this encounter [...] hypothyroidism 04/12/2021 Coronary artery disease invo lving little shell tribe coronary artery of little shell tribe heart without angina pectoris 09/27/2020 S/P angioplasty [...] encounter Miscellaneous Notes * Telephone Encounter - Mami Rodriguez OSA - 11/21/2023 4:23 PM EDT Pt calling to advise that she is going to go to the ED as directed; requested if her PCP could callahead and advise them accordingly. Thank you * Telephone Encounter - Keagan Sanchez MD - 11/21/2023 2:17 PM EDT I called and spoke with patient. There are 2 separate issues going on here: 1-lower left back pain radiating down to left thigh-pain score 8/10 without tramadol and then 4/10 with tramadol.Xrays reviewed-formal report awaited MRI L spine awaited She is able to stand on her own,can weight bear without support but using walker to mobilize No incontinence Patient will increase tramadol 50 mg to 2 pills every 4-6 hours and take tylenol 325 mg -take 2 pills every 6 hours max 2 gram/day Plan as per MRI If pain worsens call back SHERRY/911/ED 2-left lower abdomen pain-stools have been loose-feels pressure left lower abdomen-they also have been glen-dark green/? Black H/o diverticulosis-reviewed last colonoscopy [address] abdomen and pelvis 3 weeks ago and EGD 06/26/23 She says pain comes and goes no fever,cough vomiting diarrhea,rash,neck stiffness,chest pain,pnd,orthopnea,pedal edema,shortnessof breath,dysuria,hematuria or melena Advised evaluation via ED-patient declined and will go to ED if pain worsens Patient was thankful for the call back * Telephone Encounter - Dmitry Haley DO - 11/21/2023 1:52 PM EDT [facility] Subprogram: Short-Term Management (less than 3 months) Recommendations: Reviewed images - DDD of both L-Spine and T-Spine, however I'm NOT a radiologist so any additional findings we'll need to wait for the official reading. I would defer to the PCP for next steps for the back only because they saw the patient and have thebest understanding of the presentation and next steps. Orders: No orders of the defined types were placed in this encounter. To Do: Please see below for follow up items to be completed and correspondence: DEMETRIUSI to [facility] Care Team drawer liner Pool please work on the following: contact the caller with advice and orders as above Dmitry Haley DO [facility] - [facility] 11/21/2023 Scheduled appointments in the next 60 days: Future Appointments-next 60 days Date/Time Provider Specialty Dept Phone 11/22/2023 12:00 PM [facility], Nurse [facility] [phone] 11/25/2023 8:00 AM (Arrive by 7:45 AM) Kelly Waddell PA-C Neurology [phone] 12/03/2023 8:30 AM (Arrive by 8:00 AM) [facility] Radiology [phone] 12/09/2023 10:00 AM Oriana Isaacs PA-C [facility] [phone] 12/22/2023 1:40 PM (Arrive by 1:25 PM) Keagan Sanchez MD Family Medicine [phone] 12/29/2023 12:30 PM Nika Guevara RN [facility] [phone] 06/07/2024 11:00 AM (Arrive by 10:45 AM) Angela Littlejohn CRNP Cardiology [phone] 08/09/2024 10:00 AM Sami Angelo DO Orthopedics [phone] 10/07/2024 2:40 PM (Arrive by 2:25 PM) Alden Ann PA-C Dermatology [phone] * Telephone Encounter - Diana Valentin RN - 11/21/2023 12:36 PM EDT Patient returned call to [facility] , she stated she is still having a lot of back pain , pain level is 7/10 today. She is taking Tramadol and Tylenol as needed for the back pain. MRI is scheduled but not until 12/02 at [facility]. Patient then stated she had "a sharp pain in her upper stomach/ epigastric region last night ". She has a hx of Pancreatitis , "almost thought she had Pancreatitis again but she had a dose of Mylanta , along with her usual does of Pepcid and Carafate last evening and the medications helped ." No epigastric pain today , "just a little bloating, abdomen not hard but a little firm in areas." Denies any nausea , vomiting or diarrhea. Patient then said she was having trouble having a bowel movement yesterday so she had Prune Juice and Miralax. She did have a small bowel movement last night ," stool was soft, but black in color." Another bowel movement today was also dark/ black in color. No bright red blood noted with bowel movements. No recent hx of any Gastric ulcers, patient stated she takes Protonix, Pepcid and Carafate for her Gastroparesis condition. Patient asking for results of xray's she had yesterday following PCP office appointment, informed patient results are not in her chart yet, she will call PCP office for results. Informed patient I will call her back with any recommendations. Diana Valentin RN [facility] Registered Nurse Navigator Triage * Telephone Encounter - Diana Valentin RN - 11/21/2023 10:30 AM EDT [facility] Telephonic Nurse Follow-Up Call [facility] Subprogram: Short-Term Management (less than 3 months) Follow Up Call Type: Routine follow up call / Status Check Acute issue requiring follow-up call: Other: follow up on Back pain, was MRI scheduled? Objective: 11/20/2023 10:23 AM 11/19/2023 9:59 AM 11/17/2023 2:15 PM 10/31/2023 5:00 PM 10/31/2023 4:45 PM VITALS ACROSS ENCOUNTERS BP 110/64 112/62 110/62 122/67 119/70 Pulse 66 61 68 62 59 Weight 81 kg 80.4 kg 79.4 kg BMI 30.4 BMI 30.66 kg/m2 30.42 kg/m2 30.04 kg/m2 Remote Patient Monitoring: NONE Oxygen Needs: NO supplemental oxygen needs identified DME Needs: NO DME needs identified Medications: No medication or dose adjustments made during acute episode Subjective: Condition Status: unable to contact Current Concerns: Called patient, no answer, left message,to return call to [facility] Disposition: Weekend call scheduled, may cancel if patient returns call today Future Visits Scheduled: Future Appointments-next 60 days Date/Time Provider Specialty Dept Phone 11/21/2023 11:15 AM Coordinator, [facility] [phone] 12/03/2023 8:30 AM (Arrive by 8:00 AM) [facility] Radiology [phone] 12/09/2023 10:00 AM Oriana Isaacs PA-C [facility] [phone] 12/22/2023 1:40 PM (Arrive by 1:25 PM) Keagan Sanchez MD Family Medicine [phone] 12/29/2023 12:30 PM Nika Guevara RN [facility] [phone] 06/07/2024 11:00 AM (Arrive by 10:45 AM) Angela Littlejohn CRNP Cardiology [phone] 08/09/2024 10:00 AM Sami Angelo DO Orthopedics [phone] 10/07/2024 2:40 PM (Arrive by 2:25 PM) Alden Ann PA-C Dermatology [phone] Diana Valentin RN [facility] Registered Nurse Navigator Triage documented in this encounter Plan of Treatment Upcoming Encounters Date Type Department Care Team (Late st Contact Info) Description 11/25/2023 8:00 AM EDT Office Visit Neurology [facility] [address] [place] [address] Kelly Waddell PA-C 21 [facility] [place] [address] 12/03/2023 8:30 AM EDT Appointment Radiology, [facility] 10[address] [place] [address] 12/09/2023 10:00 AM EDT Home Visit [facility] [place] [facility] [address] [place] [address] Oriana Isaacs PA-C [address] [place] [address] 12/22/2023 1:40 PM EDT Office Visit [address] [phone] Keagan Sanchez MD [address] [place] [id number] 12/29/2023 12:30 PM EDT Home Visit [facility] [address] [place] [address] Nika Guevara RN [address] [place] [address] 06/07/2024 11:00 AM EDT Office Visit Cardiology [facility] [address] [facility] [address] [place] [address] Angela Littlejohn CRNP [address] [place] [address] 08/09/2024 10:00 AM EDT Office Visit Orthopaedics [facility] [address] [place] [address] Sami Angelo DO 16 [place] [address] 10/07/2024 2:40 PM EDT Office Visit Dermatology [facility] 68 [place] [address] Alden Ann PA-C 68 [place] [address] Scheduled Procedures Name Priority Associated Diagnoses Date/Ti [...] 12/09/2011, Additional history exists Mammogram 04/24/2024 04/24/2023, 020 [...] D LEVEL ONCE IN A LIFETIME-USE SMARTSET# [id number] Completed 01/28/2022, 02/21/2015, 12/30/2011 RETIRED - COLONOSCOPY-EVERY [...] this encounter Medical Devices Implanted Type Area Implementation Engineer Device Identifier Shelf Expiration Date Model / Serial / Lot Medtronic-05/27/2023 Implanted: (Quantity not on file) Neurostimulator MEDTRONIC : NEUROLOGIC PAIN 05/26/2049 [id number] / / [id number] Screw Jami Lacie 3 Ti Set - [id number] Implanted:Qt y: 6 on 03/10/2012 at [facility] Bilateral : Spine Lumbar LEVON : SPINE [id number] / / Screw Lacie Pa Ti 6.5x50mm - [id number] Implanted:Qt y: 4 on 03/10/2012 at OR [facility] Bilateral : Spine Lumbar LEVON : SPINE [id number] / / [place] Xia3 7.0 X 40mm Screws Implanted:Qt y: 2 on 03/10/2012 at OR [facility] Bilateral : Spine Lumbar [id number] / / Shaun Lacie 3 Ti 6x70mm - [id number] Implanted:Qt y: 1 on 03/10/2012 at OR [facility] N/A: Spine Lumbar LEVON : SPINE [id number] / / Shaun Lacie 3 Ti Max 6x80mm - [id number] Implanted:Qt y: 1 on 03/10/2012 at OR [facility] N/A: Spine Lumbar LEVON : SPINE [id number] / / 9 X 25 X 4 - 8 Avs Wedge Nose Cage Implanted:Qt y: 1 on 03/10/2012 at OR [facility] N/A: Spine Lumbar [id number] / / Stent Synergy Xd Mr 2.29c83hu - [id number] Implanted:Qt y: 1 on 09/20/2020 at [facility] LensAR [id number] 04/18/2022 [id number] 6220 / / [id number] Stent Synergy Xd Mr 2.55m22kd - [id number] Implanted:Qt y: 1 on 09/20/2020 at [facility] LensAR [id number] 04/25/2022 [id number] 2220 / / [id number] Screw Locking 4.5mm 15mm - [id number] Implanted:Qt y: 1 on 07/11/2022 by Sami Angelo DO at OR [facility] Right: Shoulder [employer] 11/22/2025 108-4515 / / [id number] Bseplate Jasmeet Cmntlss W Scrw - [id number] Implanted:Qt y: 1 on 07/11/2022 by Sami Angelo DO at OR [facility] Right: Shoulder [employer] 03/24/2027 105-0029 / / [id number] Glenosphere Rev Thee W Scrw - [id number] Implanted:Qt y: 1 on 07/11/2022 by Sami Angelo DO at OR [facility] Right: Shoulder [employer] 04/24/2027 105-3610 / / [id number] Screw Locking 4.5mm 15mm - [id number] Implanted:Qt y: 1 on 07/11/2022 by Sami Angelo DO at OR [facility] Right: Shoulder [employer] 03/24/2027 108-4515 / / [id number] Screw Locking 4.5mm 20mm - [id number] Implanted:Qt y: 1 on 07/11/2022 by Sami Angelo DO at OR [facility] Right: Shoulder [employer] 03/24/2027 108-4520 / / [id number] [place] Ii Stem Ta6v Size 12 Cementless Implanted:Qt y: 1 on 07/11/2022 by Sami Angelo DO at OR [facility] Right: Shoulder [employer] 10/22/2026 311-0212 / / [id number] Cortical Screw Ta6v, 5mm, L. 24mm Implanted:Qt y: 1 on 07/11/2022 by Sami Angelo DO at OR [facility] Right: Shoulder [employer] 09/22/2023 107-4524 / / [id number] Humeral Cup 135/145 Degree, Standard, 36/+6 Implanted:Qt y: 1 on 07/11/2022 by Sami Angelo DO at OR [facility] Right: Shoulder 02/21/2025 313-0706 / / [id number] Screw Locking 4.5mm 20mm - [id number] Implanted:Qt y: 1 on 07/11/2022 by Sami Angelo DO at OR [facility] Right: Shoulder [employer] 03/24/2027 108-4520 [...] File Name Relationship Healthcare [facility] Donny Pace Spouse Health Care Agent Care Teams Bow Rehairer Relationship Specialty Start Date End Date Keagan Sanchez MD [address] [place] [address] PCP - General Family Medicine 10/07/23 documented as of this encounter
--- OUTSIDE RECORDS SUMMARY | 2024-03-06 12:34 | External Medical Summary | Summary of Care ---
Author Name Unknown Organization [facility] Address [address] [facility] [place] [address] Phone [phone] Care Team Providers Care Video Player Mechanic Name Role Phone Keagan Sanchez MD Primary Care Provider [phone] Reason for Visit * Reason Comments Medication Refill Encounter Details Date Type Department Care Team (Late st Contact Info) Description 11/20/2023 Refill Neurology [facility] [place] [address] [place] [id number] Radhames Iglesias MD [address] [place] [facility] [place] [address] Allergies Active Allergy Reactions Criticality Noted Date Comments Adhesive Tape 03/31/2023 Other Reaction(s): Tape- redness, paper tape/coban "ok", [id number] TAPE OK OR COBAN Clarithromycin High 03/31/2023 [...] Oral Tablet (Zetia)Indication s: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 90 Tablet 11/14/2023 Active Topiramate 25 MG Oral Tablet (topAMAX) TAKE TWO TABLETS BY MOUTH AT BEDTIME 180 Tablet 1 11/24/2023 Active Topiramate 25 MG Oral Tablet (topAMAX) TAKE TWO TABLETS BY MOUTH AT BEDTIME 180 Tablet 5 09/09/2022 4 Discontinue d(Refill) Levothyroxine Sodium 112 MCG Oral Tablet (Levoxyl) TAKE 1 TABLET BY MOUTH DAILY AT LEAST 30 MINUTES PRIOR TO FIRST MEAL OF THE DAY OR OTHER MEDICATIONS 90 Tablet 1 06/03/2023 4 Discontinue d(Refill) documented as of this encounter [...] osteoporosis wit rehan current pathological fracture 03/05/2022 Personal history of [...] hypothyroidism 04/12/2021 Coronary artery disease invo lving manchester coronary artery of manchester heart without angina pectoris 09/27/2020 S/P angioplasty [...] encounter Miscellaneous Notes * Telephone Encounter - Radhames Iglesias MD - 11/24/2023 5:11 PM EDTSigned Prescriptions: Disp Refills Topiramate 25 MG Oral Tablet (topAMAX) 180 Ta*1 Sig: TAKE TWO TABLETS BY MOUTH AT BEDTIME Authorizing Provider: RADHAMES IGLESIAS * Telephone Encounter - Ofe Caro LPN - 11/21/2023 1:37 PM EDTPending Prescriptions: Disp Refills Topiramate 25 MG Oral Tablet (topAMAX) 180 Ta*1 Sig: TAKE TWO TABLETS BY MOUTH AT BEDTIME * Telephone Encounter - Vega Galan, sourcing coordinator - 11/21/2023 12:46 PM EDTPending Prescriptions: Disp Refills Topiramate 25 MG Oral Tablet (topAMAX) 180 Ta*5 Sig: TAKE TWO TABLETS BY MOUTH AT BEDTIME * Telephone Encounter - Vega Galan, sourcing coordinator - 11/21/2023 12:45 PM EDT Received message from [facility] regarding patient needing an appointment. Call Placed, Left message on voicemail to call back and schedule appointment. Thank you, Vega Galan [employer] trudy [facility] 11/21/2023, 12:45 PM * Telephone Encounter - Dmitry Blas [facility] - 11/21/2023 9:16 AM EDT Pending Prescriptions: Disp Refills Topiramate 25 MG Oral Tablet (topAMAX) 180 Ta*5 Sig: TAKE TWO TABLETS BY MOUTH AT BEDTIME * Telephone Encounter - Dmitry Blas [facility] - 11/21/2023 9:11 AM EDT Please contact patient so that an appointment can be scheduled with her NEUROLOGY provider before this refill can be authorized. After contacting patient, please forward request to the provider they schedule with (if unable to reach, use Neurology [facility] Nurse [place]). Last Visit: 12/01/2019 (in office), Visit date not found (telemedicine) Next Visit: Visit date not found Dmitry Souza, PharmD Clinical Pharmacist [facility] [phone] 11/21/2023, 9:15 AM documented in this encounter Plan of Treatment Upcoming Encounters Date Type Department Care Team (Late st Contact Info) Description 11/25/2023 8:00 AM EDT Office Visit Neurology [facility] [address] [place] [address] Kelly Waddell PA-C [address] [place] [address] 12/03/2023 8:30 AM EDT Appointment Radiology, [facility] [address] [place] [address] 12/09/2023 10:00 AM EDT [facility] [place] [address] [place] [address] Oriana Isaacs PA-C [address] [place] [address] 12/22/2023 1:40 PM EDT Office Visit [address] [phone] Keagan Sanchez MD [address] [place] [address] 12/29/2023 12:30 PM EDT Home Visit [facility] [place], [facility] [address] [place] [address] Nika Guevara RN [address] [place] [address] 06/07/2024 11:00 AM EDT Office Visit Cardiology [facility] [address] [facility] [address] [place] [address] Angela Littlejohn CRNP [address] [place] [address] 08/09/2024 10:00 AM EDT Office Visit Orthopaedics [facility] [address] [place] [address] Sami Angelo DO 16 [place] [address] 10/07/2024 2:40 PM EDT Office Visit Dermatology [facility] [address] [place] [address] Alden Ann PA-C [address] [place] [address] Scheduled Procedures Name Priority Associated Diagnoses Date/Ti [...] D LEVEL ONCE IN A LIFETIME-USE SMARTSET# 29540 Completed 01/28/2022, 02/21/2015, 12/30/2011 RETIRED - COLONOSCOPY-EVERY [...] this encounter Medical Devices Implanted Type Area Contractor General Building Device Identifier Shelf Expiration Date Model / Serial / Lot Medtronic-05/27/2023 Implanted: (Quantity not on file) Neurostimulator MEDTRONIC : NEUROLOGIC PAIN 05/26/2049 [id number] / / [id number] Screw Jami Lacie 3 Ti Set - [id number] Implanted:Qt y: 6 [place] [facility] [place] : Spine Lumbar LEVON : SPINE [id number] / / Screw Lacie Pa Ti 6.5x50mm - [id number] Implanted:Qt y: 4 on 03/10/2012 at [facility] Bilateral : Spine Lumbar LEVON : SPINE [id number] / / Levon Xia3 7.0 X 40mm Screws Implanted:Qt y: 2 on 03/10/2012 at [facility] Bilateral : Spine Lumbar [id number] / / Shaun Lacie 3 Ti 6x70mm - [id number] Implanted:Qt y: 1 on 03/10/2012 [place] [facility] [place]A: Spine Lumbar LEVON : SPINE [id number] / / Shaun Lacie 3 Ti Max 6x80mm - [id number] Implanted:Qt y: 1 on 03/10/2012 [place] [facility] [place]A: Spine Lumbar LEVON : SPINE [id number] / / 9 X 25 X 4 - 8 Avs Wedge Nose Cage Implanted:Qt y: 1 on 03/10/2012 [place] [facility] [place]/A: Spine Lumbar [id number] / / Stent Synergy Xd Mr 2.80j13fq - [id number] Implanted:Qt y: 1 on 09/20/2020 [place] [facility] [facility] [place] [employer] [id number] 04/18/2022 [id number] / / [id number] Stent Synergy Xd Mr 2.00s55ig - [id number] Implanted:Qt y: 1 on 09/20/2020 at [facility] [place] [facility] [place] [employer] [id number] 04/25/2022 [id number] 2220 / / [id number] Screw Locking 4.5mm 15mm - [id number] Implanted:Qt y: 1 on 07/11/2022 by Sami Angelo DO [place] [facility] [place] Right: Shoulder [employer] 11/22/2025 108-4515 / / [id number] Bseplate Jasmeet Cmntlss W Scrw - [id number] Implanted:Qt y: 1 on 07/11/2022 by Sami Angelo DO [place] [facility] [place] Right: Shoulder [employer] 03/24/2027 105-0029 / / [id number] Glenosphere Rev Thee W Scrw - [id number] Implanted:Qt y: 1 on 07/11/2022 by Sami Angelo DO [place] [facility] [place]: Shoulder [employer] 04/24/2027 105-3610 / / [id number] Screw Locking 4.5mm 15mm - [id number] Implanted:Qt y: 1 on 07/11/2022 by Sami Angelo DO [place] [facility] [place]: Shoulder [employer] 03/24/2027 108-4515 / / [id number] Screw Locking 4.5mm 20mm - [id number] Implanted:Qt y: 1 on 07/11/2022 by Sami Angelo DO [place] [facility] [place]: Shoulder [employer] 03/24/2027 108-4520 / / [id number] Humelock Ii Stem Ta6v Size 12 Cementless Implanted:Qt y: 1 on 07/11/2022 by Sami Angelo DO [place] [facility] [place]: Shoulder [employer] 10/22/2026 311-0212 / / [id number] Cortical Screw Ta6v, 5mm, L. 24mm Implanted:Qt y: 1 on 07/11/2022 by Sami Angelo DO [place] [facility] [place]: Shoulder [employer] 09/22/2023 107-4524 / / [id number] Humeral Cup 135/145 Degree, Standard, 36/+6 Implanted:Qt y: 1 on 07/11/2022 by Sami Angelo DO [place] [facility] [place] Right: Shoulder 02/21/2025 313-0706 / / [id number] Screw Locking 4.5mm 20mm - [id number] Implanted:Qt y: 1 on 07/11/2022 by Sami Angelo DO [place] [facility] [place]: Shoulder FX SOLUTIONS [...] Agents on File Name Relationship Healthcare Agent [facility] Communication Donny Pace Spouse Health Care Agent Care Teams Video Player Mechanic Relationship Specialty Start Date End Date Keagan Sanchez MD [address] [place] [phone] PCP - General Family Medicine 10/07/23 documented as of this encounter
--- OUTSIDE RECORDS SUMMARY | 2024-03-06 12:34 | External Medical Summary | Summary of Care ---
Author Name Unknown Organization [facility] Address [address] [place] [address] Phone [phone] Care Team Providers Care Bladder Blower Name Role Phone Keagan Jalloh MD Primary Care Provider [phone] Reason for Visit * Reason Onset Date Comments Medication Refill 12/01/2023 Encounter Details Date Type Department Care Team ([facility] st Contact Info) Description 12/01/[address] [phone] Keagan Jalloh MD [address] [place] [id number] Postlaminectomy syndrome, lumbar Allergies Active Allergy Reactions Criticality Noted Date Comments Adhesive Tape 03/31/2023 Other Reaction(s): Tape- redness, paper tape/coban "ok", [id number] TAPE OK OR COBAN Clarithromycin High 03/31/2023 [...] Oral Tablet (Zetia)Indication s:Coronary artery disease involving [place]hoe coronary artery of [place]hoe heart with unstable angina pectoris (HCC) TAKE [...] hypothyroidism 04/12/2021 Coronary artery disease invo lving [place] coronary artery of [place]hoe heart without angina pectoris 09/27/2020 S/P angioplasty [...] JALLOH * Telephone Encounter - Vidal Jones, goat driver - 12/03/2023 9:48 AM EDT Pt calling to check on status of refill request. Caller can be reached at [phone]. Pt upset because she requested RX as Priority and its not filled! Thank You, Vidal Jones [facility] Chief Building Inspector II [facility] 12/03/2023, 9:48 AM * Telephone Encounter - Hien Coles, [facility] - 12/02/2023 4:04 PM EDTPending Prescriptions: Disp Refills traMADol HCl 50 MG Oral Tablet (Ultram) 90 Tab*0 Sig: Take 2 Tablets by mouth every 6 hours as needed for Pain, Moderate. * Telephone Encounter - Gem Carver [facility] - 12/02/2023 11:25 AM EDT Pending Prescriptions: Disp Refills traMADol HCl 50 MG Oral Tablet (Ultram) 90 Tab*0 Sig: Take 2 Tablets by mouth every 6 hours as needed for Pain, Moderate. * Telephone Encounter - Gem Carver [facility] - 12/02/2023 11:24 AM EDT I have reviewed the patients controlled substance dispensing history in the Prescription Drug Monitoring Program in compliance with the [facility] regulations before prescribing a controlled substance. PDMP checked on 12/02/2023. Pending Prescriptions: Disp Refills traMADol HCl 50 MG Oral Tablet (Ultram) 90 Tab*0 Sig: Take 2 Tablets by mouth every 6 hours as needed for Pain, Moderate. Last Visit: 11/20/2023 (in office), 10/31/2023 (telemedicine) Next Visit: 12/22/2023 Date medication was last filled: 11/13 Date medication is due for refill: 11/24 Pharmacy: [id number] [place] [address] [facility] Is this request for a controlled substance? [...] in Results Review. Please approve if appropriate. Gem Souza PharmD Clinical Pharmacist [facility] ([facility]) [phone] 12/02/2023,11:24 AM * Telephone Encounter - Tabatha Yeung, goat driver - 12/02/2023 11:20 AM EDT Patient requesting high priority states she has 2 pills left Did you pend patient's preferred pharmacy and medication before forwarding?yes Pharmacy: [id number] [place] [address] [facility] Pending Prescriptions: Disp Refills traMADol HCl 50 [...] was the last refill date 11/14/2023 w/ [id number] and dosage 50 mg and Urine Drug [...] Description 12/09/2023 10:00 AM EDT [facility] [address] [place] [address] Oriana Isaacs PA-C [address] [facility] [place] [address] 12/22/2023 1:40 PM EDT Office Visit [facility] [address] [place] [phone] Keagan Jalloh MD [address] [place] [address] 12/29/2023 12:30 PM EDT [facility] Visit [facility] [address] [place] [address] Nika Guevara RN [address] [facility] [address] 01/08/2024 1:00 PM EDT Office Visit Gastroenterology, [facility] [address] [place] [address] Rachael Tavarez CRNP [address] [place] [address] 06/07/2024 11:00 AM EDT Office Visit Cardiology [facility] [address] [facility] [address] [place] [address] Angela Littlejohn CRNP [address] [place] [address] 08/09/2024 10:00 AM EDT Office Visit [facility] [address] [place] [phone] Sami Angelo DO 16 [place] [address] 10/07/2024 2:40 PM EDT Office Visit Dermatology [facility] [address] [place] [address] Alden Ann PA-C [address] [place] [address] 11/25/2024 11:00 AM EDT Office Visit Neurology [facility] [address] [place] [address] Kelly Waddell PA-C [address] [place] [address] Scheduled Procedures Name Priority Associated Diagnoses Date/Ti [...] 09/10/2022, Additional history exists GFR 11/20/2024 11/21/2023, 080 11/2023, 08/25/2023, Additional history exists DTap/Tdap Vaccines (3 - Td or Tdap) 10/10/2026 10/10/2016, 10/26/2005 Colonoscopy 04/18/2027 04/18/2022, 03/25, 08/10/2013, Additional history exists Colorectal Cancer Screening 04/18/2027 VITAMIN D LEVEL ONCE IN A LIFETIME-USE SMARTSET# 95631 Completed 01/28/2022, 02/21/2015, 12/30/2011 RETIRED - COLONOSCOPY-EVERY [...] this encounter Medical Devices Implanted Type Area Manager Sharepoint Device Identifier Shelf Expiration Date Model / Serial / Lot Medtronic-05/27/2023 Implanted: (Quantity not on file) Neurostimulator [employer] : NEUROLOGIC PAIN 05/26/2049 [id number] / / [id number] Screw Jami Lacie 3 Ti Set - [id number] Implanted:Qt y: 6 on 03/10/2012 [place] [facility] [place] : Spine Lumbar LEVON : SPINE [id number] / / Screw Lacie Pa Ti 6.5x50mm - [id number] Implanted:Qt y: 4 on 03/10/2012 [place] [facility] [place] Bilateral : Spine Lumbar LEVON : SPINE [id number] / / Elvon Xia3 7.0 X 40mm Screws Implanted:Qt y: 2 on 03/10/2012 [place] [facility] [place] Bilateral : Spine Lumbar [id number] / / Shaun Lacie 3 Ti 6x70mm - [id number] Implanted:Qt y: 1 on 03/10/2012 [place] [facility] [place] N/A: Spine Lumbar LEVON : SPINE [id number] / / Shaun Lacie 3 Ti Max 6x80mm - [id number] Implanted:Qt y: 1 on 03/10/2012 [place] [facility] [place] N/A: Spine Lumbar LEVON : SPINE [id number] / / 9 X 25 X 4 - 8 Avs Wedge Nose Cage Implanted:Qt y: 1 on 03/10/2012 [place] [facility] [place] N/A: Spine Lumbar [id number] / / Stent Synergy Xd Mr 2.65t91et - [id number] Implanted:Qt y: 1 on 09/20/2020 [place] [facility] [facility] [place] [employer] [id number] 04/18/2022 [id number] 6220 / / [id number] Stent Synergy Xd Mr 2.15s55tj - [id number] Implanted:Qt y: 1 on 09/20/2020 at [facility] [place] [employer] [id number] 04/25/2022 [id number] 2220 / / [id number] Screw Locking 4.5mm 15mm - [id number] Implanted:Qt y: 1 on 07/11/2022 by Sami Angelo DO [place] [facility] [place] Right: Shoulder [employer] 11/22/2025 108-4515 / / [id number] Bseplate Jasmeet Cmntlss W Scrw - [id number] Implanted:Qt y: 1 on 07/11/2022 by Sami Angelo DO [place] [facility] [place]: Shoulder [employer] 03/24/2027 105-0029 / / [id number] [employer] Rev Thee W Scrw - [id number] Implanted:Qt y: 1 on 07/11/2022 by Sami Angelo DO [place] [facility] [place] Right: Shoulder [employer] 04/24/2027 105-3610 / / [id number] Screw Locking 4.5mm 15mm - [id number] Implanted:Qt y: 1 on 07/11/2022 by Sami Angelo DO [place] [facility] [place] Right: Shoulder [employer] 03/24/2027 108-4515 / / [id number] Screw Locking 4.5mm 20mm - [id number] Implanted:Qt y: 1 on 07/11/2022 by Sami Angelo DO [place] [facility] [place] Right: Shoulder [employer] 03/24/2027 108-4520 / / [id number] Humelock Ii Stem Ta6v Size 12 Cementless Implanted:Qt y: 1 on 07/11/2022 by Sami Angelo DO [place] [facility] [place] Right: Shoulder [employer] 10/22/2026 311-0212 / / [id number] Cortical Screw Ta6v, 5mm, L. 24mm Implanted:Qt y: 1 on 07/11/2022 by Sami Angelo DO [place] [facility] [place]: Shoulder [employer] 09/22/2023 107-4524 / / [id number] Humeral Cup 135/145 Degree, Standard, 36/+6 Implanted:Qt y: 1 on 07/11/2022 by Sami Angelo DO [place] [facility] [place]: Shoulder 02/21/2025 313-0706 / / [id number] Screw Locking 4.5mm 20mm - [id number] Implanted:Qt y: 1 on 07/11/2022 by Sami Angelo DO [place] [facility] [place]: Shoulder [employer] 03/24/2027 108-4520 [...] Agents on File Name Relationship Healthcare Agent [facility] Communication Donny Pace Spouse Health Care Agent Care Teams Bladder Blower Relationship Specialty Start Date End Date Keagan Jalloh MD [address] [place] [address] PCP - General Family Medicine 10/07/23 documented as of this encounter
--- OUTSIDE RECORDS SUMMARY | 2024-03-06 12:35 | External Medical Summary | Summary of Care ---
Author Name Unknown Organization [facility] Address [address] [facility] [place] [address] Phone [phone] Care Team Providers Care Lopper Name Role Phone Keagan Sanchez MD Primary Care Provider [phone] Reason for Visit * Reason Onset Date Comments Acute Problem Follow Up 11/22/2023 Encounter Details Date Type Department Care Team (Late st Contact Info) Description 11/22/2023 12:00 PM EDT Scheduled Telephone [email or web address] [place], [facility] [address] [place] [address] [facility], Nurse [place] [id number] [place] [address] Allergies Active Allergy Reactions Criticality Noted Date Comments Adhesive Tape 03/31/2023 Other Reaction(s): Tape- redness, paper tape/coban "ok", [id number] TAPE OK OR COBAN Clarithromycin High 03/31/2023 Other Reaction(s): Rash, diarrhea, RASH,DIARRHEA Duloxetine Hcl Flushing,Nausea/vomi tin g High 10/20/2019 Erythromycin Base Rash 03/14/2004 Orlistat Low 03/31/2023 Other Reaction(s): GI UPSET Penicillins Rash 03/14/2004 Prednisone Other (Please comment) High 10/10/2023 pancreatitis Sulfa Antibiotics Rash 03/14/2004 documented as of this encounter (statuses as of 11/22/2023) Medications Medication Sig Dispensed Refills Start Date [...] Oral Tablet (Zetia)Indications :Coronary artery disease involving [place] coronary artery of [place] heart with unstable angina pectoris (HCC) TAKE [...] as of this encounter (statuses as of 11/22/2023) Active Problems Problem Noted Date Diagnosed Date [...] hypothyroidism 04/12/2021 Coronary artery disease invo lving [place] coronary artery of [place] heart without angina pectoris 09/27/2020 S/P angioplasty [...] as of this encounter (statuses as of 11/22/2023) Resolved Problems Problem Noted Date Diagnosed Date [...] as of this encounter (statuses as of 11/22/2023) Immunizations Name Administration Dates Next Due COVID-19 [...] encounter Miscellaneous Notes * Telephone Encounter - Carole Blevins EMT-P - 11/22/2023 1:00 PM EDT P PC close F/U. Spoke with patient. Went to ED last night. Abd pain and Low back pain. Patient's main complaint is continued ongoing low back pain. Currently on tramadol. Patient received recommendations from PCP to dose her tramadol QID for pain control. Patient doing ok pain is a 6/10 today. Patient doesn't desire visit today. Will call in if she needs anything acutely. Patient appreciates the call. documented in this encounter Plan of Treatment Upcoming Encounters Date Type Department Care Team (Late st Contact Info) Description 11/25/2023 8:00 AM EDT Office Visit Neurology [facility] [address] [place] [address] Kelly Waddell PA-C 21 [facility] [place] [address] 12/03/2023 8:30 AM EDT Appointment Radiology, [facility] [address] [place] [address] 12/09/2023 10:00 AM EDT [facility], [facility] [address] [place] [address] Oriana Isaacs PA-C [address] [place] [address] 12/22/2023 1:40 PM EDT Office Visit Family Practice [facility] [address] [place] [phone] Keagan Sanchez MD [address] [place] [address] 12/29/2023 12:30 PM EDT [facility] [address] [place] [address] Nika Guevara RN [address] [place] [address] 06/07/2024 11:00 AM EDT Office Visit Cardiology [facility] [address] [facility] [address] [place] [phone] Angela Littlejohn CRNP [address] [place] [address] 08/09/2024 10:00 AM EDT Office Visit Orthopaedics Andrez Alejandre 16 [place] [address] Sami Angelo DO 16 [place] [address] 10/07/2024 2:40 PM EDT Office Visit Dermatology [facility] [address] [place] [address] Alden Ann PA-C [address] [place] [address] Scheduled Procedures Name Priority Associated Diagnoses Date/Ti me COLONOSCOPY FLEXIBLE PROXIMA L DIAGNOSTIC Recall Family history of colonic polyps Health Maintenance Due Date Last Done Comments HIV Screening 1976 Albumin/Creatinine Ratio 10/15/1979 Cologuard 2006 Sigmoidoscopy 2006 Zoster Vaccines (1 of 2) 10/15/2011 Fecal Occult Blood Test 08/03/2014 08/03/2013, 01/06 COVID-19 Vaccine ( season) 2022 12/24/2021, 07/11/2021, 01/17/2021, Additional history exists Depression Monitoring 03/05/2023 03/05/2022 *BISPHONATE OR OTHER ACCEPTABLE MEDICATION NEEDED FOR OSTEOPOROSIS (REFER TO SMARTSET #1146) 07/23/2023 Influenza Vaccine (FLU shot) (#1) 2023 01/21/2023, [...] D LEVEL ONCE IN A LIFETIME-USE SMARTSET# 74526 Completed 01/28/2022, 02/21/2015, 12/30/2011 RETIRED - COLONOSCOPY-EVERY [...] this encounter Medical Devices Implanted Type Area Call Taker Device Identifier Shelf Expiration Date Model / Serial / Lot Medtronic-05/27/2023 Implanted: (Quantity not on file) Neurostimulator MEDTRONIC : NEUROLOGIC PAIN 05/26/2049 [id number] / / [id number] Screw Jami Lacie 3 Ti Set - [id number] Implanted:Qt y: 6 on 03/10/2012 at [place] [facility] [place] Bilateral : Spine Lumbar LEVON : SPINE [id number] / / Screw Lacie Pa Ti 6.5x50mm - [id number] Implanted:Qt y: 4 on 03/10/2012 at OR [facility] [place] Bilateral : Spine Lumbar LEVON : SPINE [id number] / / Warren Xia3 7.0 X 40mm Screws Implanted:Qt y: 2 on 03/10/2012 at OR [facility] [place] Bilateral : Spine Lumbar [id number] / / Shaun Lacie 3 Ti 6x70mm - [id number] Implanted:Qt y: 1 on 03/10/2012 at OR [facility] [place] N/A: Spine Lumbar LEVON : SPINE [id number] / / Shaun Lacie 3 Ti Max 6x80mm - [id number] Implanted:Qt y: 1 on 03/10/2012 at OR [facility] [place] N/A: Spine Lumbar LEVON : SPINE [id number] / / 9 X 25 X 4 - 8 Avs Wedge Nose Cage Implanted:Qt y: 1 on 03/10/2012 at OR [facility] [place] N/A: Spine Lumbar [id number] / / Stent Synergy Xd Mr 2.06h90li - [id number] Implanted:Qt y: 1 on 09/20/2020 at [facility] [place] EndoSphere [id number] 04/18/2022 [id number] / / [id number] Stent Synergy Xd Mr 2.84n54hy - [id number] Implanted:Qt y: 1 on 09/20/2020 at [facility] [place] Endo[employer]here [id number] 04/25/2022 [id number] 2220 / / [id number] Screw Locking 4.5mm 15mm - [id number] Implanted:Qt y: 1 on 07/11/2022 by Sami Angelo DO at OR [facility] [place] Right: Shoulder [employer] 11/22/2025 108-4515 / / [id number] Bseplate Jasmeet Cmntlss W Scrw - [id number] Implanted:Qt y: 1 on 07/11/2022 by Sami Angelo DO OR [facility] [place] Right: Shoulder [employer] 03/24/2027 105-0029 / / [id number] Glenosphere Rev Thee W Scrw - [id number] Implanted:Qt y: 1 on 07/11/2022 by Sami Angelo DO OR [facility] [place] Right: Shoulder [employer] 04/24/2027 105-3610 / / [id number] Screw Locking 4.5mm 15mm - [id number] Implanted:Qt y: 1 on 07/11/2022 by Sami Angelo DO at OR [facility] [place] Right: Shoulder [employer] 03/24/2027 108-4515 / / [id number] Screw Locking 4.5mm 20mm - [id number] Implanted:Qt y: 1 on 07/11/2022 by Sami Angelo DO at OR [facility] [place] Right: Shoulder [employer] 03/24/2027 108-4520 / / [id number] Humelock Ii Stem Ta6v Size 12 Cementless Implanted:Qt y: 1 on 07/11/2022 by Sami Angelo DO at OR [facility] [place] Right: Shoulder [employer] 10/22/2026 311-0212 / / [id number] Cortical Screw Ta6v, 5mm, L. 24mm Implanted:Qt y: 1 on 07/11/2022 by Sami Angelo, DO at OR [facility] [place] Right: Shoulder [employer] 09/22/2023 107-4524 / / [id number] Humeral Cup 135/145 Degree, Standard, 36/+6 Implanted:Qt y: 1 on 07/11/2022 by Sami Angelo, DO at OR [facility] [place] Right: Shoulder 02/21/2025 313-0706 / / [id number] Screw Locking 4.5mm 20mm - [id number] Implanted:Qt y: 1 on 07/11/2022 by Sami Angelo, DO at [place] [facility] [place] Right: Shoulder FX SOLUTIONS [...] Agents on File Name Relationship Healthcare Agent [facility] Communication Donny Pace Spouse Health Care Agent Care Teams Lopper Relationship Specialty Start Date End Date Keagan Sanchez MD [address] [place] [address] PCP - General Family Medicine 10/07/23 documented as of this encounter
--- OUTSIDE RECORDS SUMMARY | 2024-03-06 12:35 | External Medical Summary | Summary of Care ---
Author Name Unknown Organization [facility] Address [address] [facility] [address] Phone [phone] Care Team Providers Care Interlacer Name Role Phone Keagan Sanchez MD Primary Care Provider [phone] Reason for Visit * Reason Onset Date Comments Test Results 11/21/2023 Xray Encounter Details Date Type Department Care Team ([facility] Contact Info) Description 11/21/[address] [phone] Keagan Sanchez MD [address] [place] [phone] Test Results (Xray) Allergies Active Allergy Reactions Criticality Noted Date Comments Adhesive Tape 03/31/2023 Other Reaction(s): Tape- redness, paper tape/coban "ok", [id number] TAPE OK OR COBAN Clarithromycin High 03/31/2023 Other Reaction(s): Rash, diarrhea, RASH,DIARRHEA Duloxetine Hcl Flushing,Nausea/vomi tin g High 10/20/2019 Erythromycin Base Rash 03/14/2004 Orlistat Low 03/31/2023 Other Reaction(s): GI UPSET Penicillins Rash 03/14/2004 Prednisone Other (Please comment) High 10/10/2023 pancreatitis Sulfa Antibiotics Rash 03/14/2004 documented as of this encounter (statuses as of 11/21/2023) Medications Medication Sig Dispensed Refills Start Date [...] Oral Tablet (Zetia)Indications :Coronary artery disease involving [place] coronary artery of [place] heart with unstable angina pectoris (HCC) TAKE [...] as of this encounter (statuses as of 11/21/2023) Active Problems Problem Noted Date Diagnosed Date [...] 04/12/2021 Coronary artery disease invo lving [place] coronary artery of [place] heart without angina pectoris 09/27/2020 S/P angioplasty [...] as of this encounter (statuses as of 11/21/2023) Resolved Problems Problem Noted Date Diagnosed Date [...] as of this encounter (statuses as of 11/21/2023) Immunizations Name Administration Dates Next Due COVID-19 [...] Telephone Encounter - Pretty Bucio LPN - 11/21/2023 2:53 PM EDT Noted. * Telephone Encounter - Keagan Sanchez MD - 11/21/2023 2:30 PM EDT Answered via separate encounter * Telephone Encounter - Pretty Bucio LPN - 11/21/2023 2:26 PM EDT PCP and ordering provider out of the office. Is someone else able to interpret the results? * Telephone Encounter - Ilana Bermudez OSA - 11/21/2023 1:21 PM EDT Who is Requesting Test Results: patient, she is in pain Primary Care Provider : Keagan Sanchez MD Tests Results Requested : XR Date of Test : 11/20/2023 Location of Test: [facility] Ordering Provider: Jamarcus Carreno PA-C Patient has been made aware that the turnaround time for test results are typically as follows: Laboratory results = within 2-3 days ([facility]), 3-5 days (Non[facility], ie[facility]) Urine Cultures = within 2-3 days depending on growth within the culture Pathology results (biopsy results/PAP) = 1-2 weeks Radiology results = about 1 week Cologuard results = within 2 weeks from the shipment date COVID testing = about 24 hours documented in this encounter Plan of Treatment Upcoming Encounters Date Type Department Care Team ([facility] st Contact Info) Description 11/22/2023 12:00 PM EDT Scheduled Telephone [facility] [place], [facility] [address] [place] [address] [facility], Nurse [facility] [address] [place] [address] 11/25/2023 8:00 AM EDT Office Visit Neurology [facility] [address] [place] [address] Kelly Waddell [facility]-C [facility] [place] [address] 12/03/2023 8:30 AM EDT Appointment Radiology, [place] [address] [place] [address] 12/09/2023 10:00 AM EDT [facility] [address] [place] [address] Oriana Isaacs PA-C [address] [place] [address] 12/22/2023 1:40 PM EDT Office Visit Family Practice [facility] [address] [place] [address] Keagan Sanchez MD [address] [place] [address] 12/29/2023 12:30 PM EDT [facility] [place] [address] [place] [address] Nika Guevara RN [address] [facility] [place] [address] 06/07/2024 11:00 AM EDT Office Visit Cardiology [facility] [address] [facility] [address] [place] [address] Angela Littlejohn CRNP [address] [place] [address] 08/09/2024 10:00 AM EDT Office Visit [place] [address] [place] [address] Sami Angelo DO 16 [place] [address] 10/07/2024 2:40 PM EDT Office Visit Dermatology [facility] [address] [place] [address] Alden Ann PA-C [address] [place] [address] Scheduled Procedures Name Priority Associated Diagnoses Date/Ti [...] 08/0 11/2022, 09/10/2022, Additional history exists GFR 10/30/2024 10/31/2023, 06/0 05/2023, 08/23/2023, Additional history exists DTap/Tdap Vaccines (3 - Td or Tdap) 10/10/2026 10/10/2016, 10/26/2005 Colonoscopy 04/18/2027 04/18/2022, 03/25, 08/10/2013, Additional history exists Colorectal Cancer Screening 04/18/2027 VITAMIN D LEVEL ONCE IN A LIFETIME-USE SMARTSET# 06708 Completed 01/28/2022, 02/21/2015, 12/30/2011 RETIRED - COLONOSCOPY-EVERY [...] this encounter Medical Devices Implanted Type Area Fiber Optics Supervisor Device Identifier Shelf Expiration Date Model / Serial / Lot Medtronic-05/27/2023 Implanted: (Quantity not on file) Neurostimulator MEDTRONIC : NEUROLOGIC PAIN 05/26/2049 [id number] / / [id number] Screw Jami Lacie 3 Ti Set - [id number] Implanted:Qt y: 6 on 03/10/2012 at [place] [facility] [place] Bilateral : Spine Lumbar LEVON : SPINE [id number] / / Screw Lacie Pa Ti 6.5x50mm - [id number] Implanted:Qt y: 4 on 03/10/2012 at [place] [facility] [place] Bilateral : Spine Lumbar LEVON : SPINE [id number] / / [place] Xia3 7.0 X 40mm Screws Implanted:Qt y: 2 on 03/10/2012 at [place] [facility] [place] Bilateral : Spine Lumbar [id number] / / Shaun Lacie 3 Ti 6x70mm - [id number] Implanted:Qt y: 1 on 03/10/2012 at [place] [facility] [place] N/A: Spine Lumbar LEVON : SPINE [id number] / / Shaun Lacie 3 Ti Max 6x80mm - [id number] Implanted:Qt y: 1 on 03/10/2012 at [place] [facility] [place] N/A: Spine Lumbar LEVON : SPINE [id number] / / 9 X 25 X 4 - 8 Avs Wedge Nose Cage Implanted:Qt y: 1 on 03/10/2012 at [place] [facility] [place] N/A: Spine Lumbar [id number] / / Stent Synergy Xd Mr 2.88l61ek - [id number] Implanted:Qt y: 1 on 09/20/2020 at [facility] [place] Voucherlink [id number] 04/18/2022 [id number] 6220 / / [id number] Stent Synergy Xd Mr 2.41b36ro - [id number] Implanted:Qt y: 1 on 09/20/2020 at [facility] [place] [employer] [id number] 04/25/2022 [id number] 2220 / / [id number] Screw Locking 4.5mm 15mm - [id number] Implanted:Qt y: 1 on 07/11/2022 by Sami Angelo DO at [place] [facility] [place] Right: Shoulder [employer] 11/22/2025 108-4515 / / [id number] Bseplate Jasmeet Cmntlss W Scrw - [id number] Implanted:Qt y: 1 on 07/11/2022 by Sami Angelo DO at [place] [facility] [place] Right: Shoulder [employer] 03/24/2027 105-0029 / / [id number] Glenosphere Rev Thee W Scrw - [id number] Implanted:Qt y: 1 on 07/11/2022 by Sami Angelo DO at [place] [facility] [place] Right: Shoulder [employer] 04/24/2027 105-3610 / / [id number] Screw Locking 4.5mm 15mm - [id number] Implanted:Qt y: 1 on 07/11/2022 by Sami Angelo DO [place] [facility] [place] Right: Shoulder [employer] 03/24/2027 108-4515 / / [id number] Screw Locking 4.5mm 20mm - [id number] Implanted:Qt y: 1 on 07/11/2022 by Sami Angelo DO at [place] [facility] [place] Right: Shoulder [employer] 03/24/2027 108-4520 / / [id number] Humelock Ii Stem Ta6v Size 12 Cementless Implanted:Qt y: 1 on 07/11/2022 by Sami Angelo DO [place] [facility] [place] Right: Shoulder [employer] 10/22/2026 311-0212 / / [id number] Cortical Screw Ta6v, 5mm, L. 24mm Implanted:Qt y: 1 on 07/11/2022 by Sami Angelo DO at [place] [facility] [place] Right: Shoulder [employer] 09/22/2023 107-4524 / / [id number] Humeral Cup 135/145 Degree, Standard, 36/+6 Implanted:Qt y: 1 on 07/11/2022 by Sami Angelo DO at [place] [facility] [place] Right: Shoulder 02/21/2025 313-0706 / / [id number] Screw Locking 4.5mm 20mm - [id number] Implanted:Qt y: 1 on 07/11/2022 by Sami Angelo DO [place] [facility] [place] Right: Shoulder [employer] 03/24/2027 108-4520 [...] Pace Spouse Health Care Agent Care Teams Interlacer Relationship Specialty Start Date End Date Keagan Sanchez MD [address] [place] [address] PCP - General Family Medicine 10/07/23 documented as of this encounter
--- OUTSIDE RECORDS SUMMARY | 2024-03-06 12:35 | External Medical Summary | Summary of Care ---
Author Name Unknown Organization [facility] Address [address] [facility] [place] [address] Phone [phone] Care Team Providers Care Lead Web Developer Name Role Phone Keagan Sanchez MD Primary Care Provider [phone] Reason for Visit * Reason Onset Date Comments [facility]: Maintenance 11/21/2023 Encounter Details Date Type Department Care Team (Late st Contact Info) Description 11/21/2023 11:15 AM EDT Scheduled Telephone [facility], [place] [address] [place] [address] Coordinator, [facility] [address] [place] [address] Allergies Active Allergy Reactions Criticality Noted Date Comments Adhesive Tape 03/31/2023 Other Reaction(s): Tape- redness, paper tape/coban "ok", [id number] TAPE OK OR COBAN Clarithromycin High 03/31/2023 [...] MORNING 90 Tablet 3 05/26/2023 05/25/2024 Active Levothyroxine Sodium 112 MCG Oral Tablet (Levoxyl) TAKE 1 TABLET BY MOUTH DAILY AT LEAST 30 MINUTES PRIOR TO FIRST MEAL OF THE DAY OR OTHER MEDICATIONS 90 Tablet 1 06/03/2023 06/02/2024 Active Sucralfate 1 GM Oral Tablet (Carafate) [...] Oral Tablet (Zetia)Indications :Coronary artery disease involving huslia coronary artery of huslia heart with unstable angina pectoris (HCC) TAKE ONE TABLET BY MOUTH EVERY MORNING 90 Tablet 3 11/07/2023 11/06/2024 Active traMADol HCl 50 MG Oral Tablet (Ultram)Indication s:Postlaminectomy syndrome, lumbar Take 2 Tablets by mouth every 6 hours as needed for Pain, Moderate. 90 Tablet 11/14/2023 Active documented as of this encounter (statuses [...] hypothyroidism 04/12/2021 Coronary artery disease invo lving huslia coronary artery of huslia heart without angina pectoris 09/27/2020 S/P angioplasty [...] Miscellaneous Notes * Telephone Encounter - Keagan Sanchez MD [...] - 11/21/2023 1:52 PM EDT 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 Pool please work on the following: contact the caller with advice and orders as above Dmitry Haley DO [facility] - [facility] 11/21/2023 Scheduled appointments in the next 60 days: Future Appointments-next 60 days Date/Time Provider Specialty Dept Phone 11/22/2023 12:00 PM Region, Nurse [facility] [phone] 11/25/2023 8:00 AM (Arrive by 7:45 AM) Kelly Waddell PA-C Neurology [phone] 12/03/2023 8:30 AM (Arrive by 8:00 AM) MR1 [facility] Radiology [phone] 12/09/2023 10:00 AM Oriana Isaacs PA-C [facility] [phone] 12/22/2023 1:40 PM (Arrive by 1:25 PM) Keagan Sanchez MD Family Medicine [phone] 12/29/2023 12:30 PM Nika Guevara RN [facility] [phone] 06/07/2024 11:00 AM (Arrive by 10:45 AM) Angela Littlejohn CRNP Cardiology [phone] 08/09/2024 10:00 AM Sami Angelo DO Orthopedics [phone] 10/07/2024 2:40 PM (Arrive by 2:25 PM) Alden Ann PA-C Dermatology [phone] * Telephone Encounter - Diana Valentin RN - 11/21/2023 12:36 PM EDT Patient returned call to [facility] , she stated she is still having a lot of back pain , pain level is 7/10 today. She is taking Tramadol and Tylenol as needed for the back pain. MRI is scheduled but not until 12/02 at [facility]. Patient then stated she had "a [...] back with any recommendations. Diana Valentin RN [facility] Registered Nurse Navigator Triage * Telephone Encounter - Diana Valentin RN - 11/21/2023 10:30 AM EDT [facility] Telephonic Nurse Follow-Up Call [facility] Subprogram: Short-Term Management (less than 3 [...] no answer, left message,to return call to [facility] Disposition: Weekend call scheduled, may cancel if patient returns call today Future Visits Scheduled: Future Appointments-next 60 days Date/Time Provider Specialty Dept Phone 11/21/2023 11:15 AM Coordinator, [facility] [phone] 12/03/2023 8:30 AM (Arrive by 8:00 AM) MR1 [facility] Radiology [phone] 12/09/2023 10:00 AM Oriana Isaacs PA-C [facility] [phone] 12/22/2023 1:40 PM (Arrive by 1:25 PM) Keagan Sanchez MD Family Medicine [phone] 12/29/2023 12:30 PM Nika Guevara RN [facility] [phone] 06/07/2024 11:00 AM (Arrive by 10:45 AM) Angela Littlejohn CRNP Cardiology [phone] 08/09/2024 10:00 AM Sami Angelo, DO Orthopedics [phone] 10/07/2024 2:40 PM (Arrive by 2:25 PM) Alden Ann PA-C Dermatology [phone] Diana Valentin RN [facility] Registered Nurse Navigator Triage documented in this encounter Plan of Treatment Upcoming Encounters Date Type Department Care Team (Late st Contact Info) Description 11/22/2023 12:00 PM EDT Scheduled Telephone [facility], [facility] [address] [place] [address] [facility], Nurse [facility] [address] [facility] [place] [address] 11/25/2023 8:00 AM EDT Office Visit Neurology [facility] [address] [facility] [place] [address] Kelly Waddell PA-C [facility] [place] [place] [address] 12/03/2023 8:30 AM EDT Appointment Radiology, [facility] [address] [place] [address] 12/09/2023 10:00 AM EDT Home Visit [facility] [place], [facility] [address] [place] [address] Oriana Isaacs PA-C [address] [place] [address] 12/22/2023 1:40 PM EDT Office Visit [address] [phone] Keagan Sanchez MD [address] [place] [address] 12/29/2023 12:30 PM EDT Home Visit [facility], [place] [address] [place] [address] Nika Guevara RN [address] [place] [address] 06/07/2024 11:00 AM EDT Office Visit Cardiology [facility] [address] [facility] [address] [place] [address] Angela Littlejohn CRNP [address] [place] [address] 08/09/2024 10:00 AM EDT Office Visit Orthopaedics [facility] [address] [place] [address] Sami Angelo DO 16 [place] [address] 10/07/2024 2:40 PM EDT Office Visit Dermatology [facility] [address] [place] [address] Alden Ann PA-C [address] [place] [address] Scheduled Procedures Name Priority Associated Diagnoses Date/Ti [...] 09/10/2022, Additional history exists GFR 10/30/2024 10/31/2023, 0 05/2023, 08/23/2023, Additional history exists DTap/Tdap Vaccines (3 - Td or Tdap) 10/10/2026 10/10/2016, 10/26/2005 Colonoscopy 04/18/2027 04/18/2022, 03/25, 08/10/2013, Additional history exists Colorectal Cancer Screening 04/18/2027 VITAMIN D LEVEL ONCE IN A LIFETIME-USE SMARTSET# 85723 Completed 01/28/2022, 02/21/2015, 12/30/2011 RETIRED - COLONOSCOPY-EVERY [...] this encounter Medical Devices Implanted Type Area Ethics Officer Device Identifier Shelf Expiration Date Model / Serial / Lot Medtronic-05/27/2023 Implanted: (Quantity not on file) Neurostimulator MEDTRONIC : NEUROLOGIC PAIN 05/26/2049 [id number] / / [id number] Screw Jami Lacie 3 Ti Set - [id number] Implanted:Qt y: 6 on 03/10/2012 at [place] [facility] Bilateral : Spine Lumbar LEVON : SPINE [id number] / / Screw Lacie Pa Ti 6.5x50mm - [id number] Implanted:Qt y: 4 on 03/10/2012 at [facility] Bilateral : Spine Lumbar LEVON : SPINE [id number] / / Easton Xia3 7.0 X 40mm Screws Implanted:Qt y: 2 on 03/10/2012 at [place] [facility] Bilateral : Spine Lumbar [id number] / / Shaun Lacie 3 Ti 6x70mm - [id number] Implanted:Qt y: 1 on 03/10/2012 at OR [facility] N/A: Spine Lumbar LEVON : SPINE [id number] / / Shaun Lacie 3 Ti Max 6x80mm - [id number] Implanted:Qt y: 1 on 03/10/2012 at OR [facility] N/A: Spine Lumbar LEVON : SPINE [id number] / / 9 X 25 X 4 - 8 Avs Wedge Nose Cage Implanted:Qt y: 1 on 03/10/2012 at OR [facility] N/A: Spine Lumbar [id number] / / Stent Synergy Xd Mr 2.40e15xy - [id number] Implanted:Qt y: 1 on 09/20/2020 at [facility] [employer] [id number] 04/18/2022 [id number] / / [id number] Stent Synergy Xd Mr 2.00o28mi - [id number] Implanted:Qt y: 1 on 09/20/2020 at [facility] [employer] [id number] 04/25/2022 [id number] 2220 / / [id number] Screw Locking 4.5mm 15mm - [id number] Implanted:Qt y: 1 on 07/11/2022 by Sami Angelo DO at [facility] Right: Shoulder [employer] 11/22/2025 108-4515 / / [id number] Bseplate Jasmeet Cmntlss W Scrw - [id number] Implanted:Qt y: 1 on 07/11/2022 by Sami Angelo DO at [facility] Right: Shoulder [employer] 03/24/2027 105-0029 / / [id number] Glenosphere Rev Thee W Scrw - [id number] Implanted:Qt y: 1 on 07/11/2022 by Sami Angelo DO at [facility] Right: Shoulder [employer] 04/24/2027 105-3610 / / [id number] Screw Locking 4.5mm 15mm - [id number] Implanted:Qt y: 1 on 07/11/2022 by Sami Angelo DO at [facility] Right: Shoulder [employer] 03/24/2027 108-4515 / / [id number] Screw Locking 4.5mm 20mm - [id number] Implanted:Qt y: 1 on 07/11/2022 by Sami Angelo DO [facility] Right: Shoulder [employer] 03/24/2027 108-4520 / / [id number] Humelock Ii Stem Ta6v Size 12 Cementless Implanted:Qt y: 1 on 07/11/2022 by Sami Angelo DO [facility] Right: [...] / [id number] Screw Locking 4.5mm 20mm - [id number] Implanted:Qt y: 1 on 07/11/2022 by Sami [...] on File Name Relationship Healthcare Agent [facility] Communication Donny Pace Spouse Health Care Agent Care Teams Lead Web Developer Relationship Specialty Start Date End Date Keagan Sanchez MD [address] [place] [address] PCP - General Family Medicine 10/07/23 documented as of this encounter
--- OUTSIDE RECORDS SUMMARY | 2024-03-06 12:35 | External Medical Summary | Summary of Care ---
Author Name Unknown Organization [facility] Address [address] [facility] [place] [address] Phone [phone] Care Team Providers Care Steam Clean Machine Operator Name Role Phone Keagan Sanchez MD Primary Care Provider [phone] Reason for Visit * Reason Onset Date Comments [facility]: Maintenance 11/21/2023 Encounter Details Date Type Department Care Team (Late st Contact Info) Description 11/21/2023 11:15 AM EDT Scheduled Telephone [facility], [place] [address] [place] [address] Coordinator, [facility] [address] [place] [address] Allergies Active Allergy Reactions Criticality Noted Date Comments Adhesive Tape 03/31/2023 Other Reaction(s): Tape- redness, paper tape/coban "ok", EUDY-PEXSMMD-[id number] TAPE OK OR COBAN Clarithromycin High 03/31/2023 [...] Oral Tablet (Zetia)Indications :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 (HCC) [...] hypothyroidism 04/12/2021 Coronary artery disease invo lving siletz tribe coronary artery of siletz tribe heart without angina pectoris 09/27/2020 S/P [...] encounter Miscellaneous Notes * Telephone Encounter - Dmitry Haley DO - 11/21/2023 1:52 PM EDT [facility] Roberto Shaffer Subprogram: Short-Term Management (less than 3 months) [...] up items to be completed and correspondence: FYI to [facility]ini[facility] Care Team diesel power shovel operator Pool please work on the following: contact the caller with advice and orders as above Dmitry Haley DO [facility] 11/21/2023 Scheduled appointments in the next 60 days: Future Appointments-next 60 days Date/Time Provider Specialty Dept Phone 11/22/2023 12:00 PM [facility] Nurse [facility] [phone] 11/25/2023 8:00 AM (Arrive by 7:45 AM) Kelly Waddell PA-C Neurology [phone] 12/03/2023 8:30 AM (Arrive by 8:00 AM) MARY G-JS Radiology [phone] 12/09/2023 10:00 AM Oriana Isaacs PA-C [facility] [phone] 12/22/2023 1:40 PM (Arrive by 1:25 PM) Keagan Sanchez MD Family Medicine [phone] 12/29/2023 12:30 PM Nika Guevara RN [facility] [phone] 06/07/2024 11:00 AM (Arrive by 10:45 AM) Angela Littlejohn CRNP Cardiology [phone] 08/09/2024 10:00 AM Sami Angelo DO Orthopedics [phone] 10/07/2024 2:40 PM (Arrive by 2:25 PM) Alden Ann PA-C Dermatology [phone] * Telephone Encounter - Diana Valentin, FLOR - 11/21/2023 12:36 PM EDT Patient returned call to [facility] , she stated she is still having a lot of back pain , pain level is 7/10 today. She is taking Tramadol and Tylenol as needed for the back pain. MRI is scheduled but not until 12/02 at [facility]. Patient then stated she had "a sharp [...] back with any recommendations. Diana Valentin RN [facility] Registered Nurse Navigator Triage * Telephone Encounter - Diana Valentin RN - 11/21/2023 10:30 AM EDT [facility] Telephonic Nurse Follow-Up Call [facility] Subprogram: Short-Term Management (less than 3 [...] no answer, left message,to return call to [facility] Disposition: Weekend call scheduled, may cancel if patient returns call today Future Visits Scheduled: Future Appointments-next 60 days Date/Time Provider Specialty Dept Phone 11/21/2023 11:15 AM Coordinator, [facility] [phone] 12/03/2023 8:30 AM (Arrive by 8:00 AM) MR1 G-[facility] Radiology [phone] 12/09/2023 10:00 AM Oriana Isaacs PA-C [facility] [phone] 12/22/2023 1:40 PM (Arrive by 1:25 PM) Keagan Sanchez MD Family Medicine [phone] 12/29/2023 12:30 PM Nika Guevara RN [facility] [phone] 06/07/2024 11:00 AM (Arrive by 10:45 AM) Angela Littlejohn CRNP Cardiology [phone] 08/09/2024 10:00 AM Sami Angelo DO Orthopedics [phone] 10/07/2024 2:40 PM (Arrive by 2:25 PM) Alden Ann PA-C Dermatology [phone] Diana Valentin RN [facility] Registered Nurse Navigator Triage documented in this encounter Plan of Treatment Upcoming Encounters Date Type Department Care Team (Late st Contact Info) Description 11/22/2023 12:00 PM EDT Scheduled Telephone [facility], [facility] [address] [place] [address] [place], Nurse [facility] [address] [facility] [address] 11/25/2023 8:00 AM EDT Office Visit [facility] [address] [facility] [address] Kelly Waddell PA-C [address] [place] [address] 12/03/2023 8:30 AM EDT Appointment Radiology, [facility] [address] [facility] [address] 12/09/2023 10:00 AM EDT Home Visit [facility], [facility] [address] [place] [address] Oriana Isaacs PA-C [address] [place] [address] 12/22/2023 1:40 PM EDT Office Visit Family Practice [facility] [address] [place] [address] Keagan Sanchez MD [address] [place] [address] 12/29/2023 12:30 PM EDT Home Visit [facility], [facility] [address] [place] [address] Nika Guevara RN [address] [place] [address] 06/07/2024 11:00 AM EDT Office Visit Cardiology [facility] [address] [facility] [address] [place] [address] Angela Littlejohn CRNP [address] [place] [address] 08/09/2024 10:00 AM EDT Office Visit [facility]opaedics [facility] [address] [place] [address] Sami Angelo DO [address] [place] [address] 10/07/2024 2:40 PM EDT Office Visit Dermatology [facility] [address] [place] [address] Alden Ann PA-C [address] [place] [address] Scheduled Procedures Name Priority Associated Diagnoses Date/Ti [...] D LEVEL ONCE IN A LIFETIME-USE SMARTSET# 09941 Completed 01/28/2022, 02/21/2015, 12/30/2011 RETIRED - COLONOSCOPY-EVERY [...] this encounter Medical Devices Implanted Type Area Type Casting Machine Operator Device Identifier Shelf Expiration Date Model / Serial / Lot Medtronic-05/27/2023 Implanted: (Quantity not on file) Neurostimulator MED[employer] : NEUROLOGIC PAIN 05/26/2049 [id number] / / [id number] Screw Jami Lacie 3 Ti Set - [id number] Implanted:Qt y: 6 on 03/10/2012 at [place] [facility] Bilateral : Spine Lumbar LEVON : SPINE [id number] / / Screw Lacie Pa Ti 6.5x50mm - [id number] Implanted:Qt y: 4 on 03/10/2012 at [facility] Bilateral : Spine Lumbar LEVON : SPINE [id number] / / [place] Xia3 7.0 X 40mm Screws Implanted:Qt y: 2 on 03/10/2012 at [place] [facility] Bilateral : Spine Lumbar [id number] / / Shaun Lacie 3 Ti 6x70mm - [id number] Implanted:Qt y: 1 on 03/10/2012 at [place] [facility] N/A: Spine Lumbar LEVON : SPINE [id number] / / Shaun Lacie 3 Ti Max 6x80mm - [id number] Implanted:Qt y: 1 on 03/10/2012 at [place] [facility] N/A: Spine Lumbar LEVON : SPINE [id number] / / 9 X 25 X 4 - 8 Avs Wedge Nose Cage Implanted:Qt y: 1 on 03/10/2012 at [place] [facility] N/A: Spine Lumbar [id number] / / Stent Synergy Xd Mr 2.95e68rx - [id number] Implanted:Qt y: 1 on 09/20/2020 at [facility] [employer] [id number] 04/18/2022 [id number] 6220 / / [id number] Stent Synergy Xd Mr 2.87k55zm - [id number] Implanted:Qt y: 1 on 09/20/2020 at [facility] [employer] [id number] 04/25/2022 [id number] 2220 / / [id number] Screw Locking 4.5mm 15mm - [id number] Implanted:Qt y: 1 on 07/11/2022 by Sami Angelo DO at [place] [facility] Right: Shoulder [employer] 11/22/2025 108-4515 / / [id number] Bseplate Jasmeet Cmntlss W Scrw - [id number] Implanted:Qt y: 1 on 07/11/2022 by Sami Angelo DO at [place] [facility] Right: Shoulder [employer] 03/24/2027 105-0029 / / [id number] Glenosphere Rev Thee W Scrw - [id number] Implanted:Qt y: 1 on 07/11/2022 by Sami Angelo DO at [place] [facility] Right: Shoulder [employer] 04/24/2027 105-3610 / / [id number] Screw Locking 4.5mm 15mm - [id number] Implanted:Qt y: 1 on 07/11/2022 by Sami Angelo DO at [place] [facility] Right: Shoulder [employer] 03/24/2027 108-4515 / / [id number] Screw Locking 4.5mm 20mm - [id number] Implanted:Qt y: 1 on 07/11/2022 by Sami Angelo DO at [place] [facility] Right: Shoulder [employer] 03/24/2027 108-4520 / / [id number] Humelock Ii Stem Ta6v Size 12 Cementless Implanted:Qt y: 1 on 07/11/2022 by Sami Angelo DO at [place] [facility] Right: Shoulder [employer] 10/22/2026 [id number] / / [id number] Cortical Screw Ta6v, 5mm, L. 24mm Implanted:Qt y: 1 on 07/11/2022 by Sami Angelo DO at [place] [facility] Right: Shoulder [employer] 09/22/2023 107-4524 / / [id number] Humeral Cup 135/145 Degree, Standard, 36/+6 Implanted:Qt y: 1 on 07/11/2022 by Sami Angelo, DO at [place] [facility] Right: Shoulder 02/21/2025 313-0706 / / [id number] Screw Locking 4.5mm 20mm - [id number] Implanted:Qt y: 1 on 07/11/2022 by Sami Angelo, at [place] [facility] Right: Shoulder [employer] 03/24/2027 108-4520 [...] Pace Spouse Health Care Agent Care Teams Steam Clean Machine Operator Relationship Specialty Start Date End Date Keagan Sanchez MD [address] [place] [address] [id number] PCP - General Family Medicine 10/07/23 documented as of this encounter
--- OUTSIDE RECORDS SUMMARY | 2024-03-06 12:35 | External Medical Summary | Summary of Care ---
Author Name Unknown Organization [facility] Address [address] [facility] [place] [address] Phone [phone] Care Team Providers Care Aircraft Structural Repairer Name Role Phone Keagan Jalloh MD Primary Care Provider [phone] Reason for Visit * Reason Comments Medication Refill Encounter Details Date Type Department Care Team ([facility] Contact Info) Description 11/21/[address] [phone] Keagan Jalloh MD [address] [place] [address] Allergies Active Allergy Reactions Criticality Noted Date Comments Adhesive Tape 03/31/2023 Other Reaction(s): Tape- redness, paper tape/coban "ok", [id number] TAPE OK OR COBAN Clarithromycin High 03/31/2023 [...] MEDICATIONS 90 Tablet 1 11/21/2023 5 Active Levothyroxine Sodium 112 MCG Oral [...] [place] heart without angina pectoris 09/27/2020 S/P angioplasty [...] encounter Miscellaneous Notes * Telephone Encounter - Morgan Beebe [facility] - 11/21/2023 2:40 PM EDTSigned Prescriptions: Disp Refills Levothyroxine Sodium 112 MCG Oral Tablet (*90 Tab*1 Sig: TAKE 1 TABLET BY MOUTH DAILY AT LEAST 30 MINUTES PRIOR TO FIRST MEAL OF THE DAY OR OTHER MEDICATIONSAuthorizing Provider: Amirah JALLOH User: MORGAN BEEBE * Telephone Encounter - Morgan Beebe [facility] - 11/21/2023 2:40 PM EDTSigned Prescriptions: Disp Refills Levothyroxine Sodium 112 MCG Oral Tablet (*90 Tab*1 Sig: TAKE 1 TABLET BY MOUTH DAILY AT LEAST 30 MINUTES PRIOR TO FIRST MEAL OF THE DAY OR OTHER MEDICATIONS Authorizing Provider: KEAGAN JALLOH Ordering User: MORGAN BEEBE * Telephone Encounter - Alva Rivero PHARM Tech - 11/21/2023 1:42 PM EDT Pharmacy is requesting a 90-day supply, pre-edited RXs as such. Please review and approve if appropriate. Pending Prescriptions: Disp Refills Levothyroxine Sodium 112 MCG Oral Tablet *90 Tab*1 Sig: TAKE 1 TABLET BY MOUTH DAILY AT LEAST 30 MINUTES PRIOR TO FIRST MEAL OF THE DAY OR OTHER MEDICATIONS Last Visit: 11/20/2023 (in office), 10/31/2023 (telemedicine) 12/22/2023 If no future appointments scheduled, and last appointment is greater than a year ago, please schedule patient for an appointment Last date the medication was ordered: 06/03/2023 Patient Phone Numbers Labs: Lab Results Component Value Date/Time CREAT 0.9 10/31/2023 04:14 PM CREAT 1.0 02/26/2020 09:17 AM POTASSIUM 3.9 10/31/2023 04:14 PM POTASSIUM 3.9 02/26/2020 09:17 AM TSH 3.36 07/17/2023 09:07 AM TSH 2.74 10/20/2019 08:59 AM LDL 40 08/24/2023 12:22 AM LDL 120 10/20/2019 08:59 AM LDL NOT APPLICABLE 10/20/2019 08:59 AM ALT 74 (H) 10/31/2023 04:14 PM ALT 32 10/20/2019 08:59 AM HGBA1C 6.0 (H) 07/17/2023 09:07 AM HGBA1C 5.2 06/23/2014 09:27 AM documented in this encounter Plan of Treatment Upcoming Encounters Date Type Department Care Team (Late st Contact Info) Description 11/22/2023 12:00 PM EDT Scheduled Telephone [facility] [address] [place] [address] [facility], Nurse [facility] [address] [facility] [address] 11/25/2023 8:00 AM EDT Office Visit Neurology [facility] [address] [place] [address] Kelly Waddell PA-C [address] [facility] [place] [address] 12/03/2023 8:30 AM EDT Appointment Radiology, [facility] [address] [place] [address] 12/09/2023 10:00 AM EDT Home Visit [facility], [facility] [address] [place] [address] Oriana Isaacs PA-C [address] [place] [address] 12/22/2023 1:40 PM EDT Office Visit Family [address] [phone] Keagan Jalloh MD [address] [place] [address] 12/29/2023 12:30 PM EDT Home Visit [facility], [facility] [address] [place] [address] Nika Guevara RN [address] [facility] [address] 06/07/2024 11:00 AM EDT Office Visit Cardiology [facility] [address] [facility] [address] [place] [phone] Angela Littlejohn CRNP [address] [place] [address] 08/09/2024 10:00 AM EDT Office Visit Orthopaedics [facility] [place] [address] [place] [address] Sami Angelo DO 16 [place] [address] 10/07/2024 2:40 PM EDT Office Visit Dermatology [facility] 68 [place] [phone] Alden Ann PA-C 68 [place] [address] Scheduled Procedures Name Priority Associated Diagnoses Date/Ti [...] 09/20/2020, Additional history exists TSH 07/16/2024 07/17/2023, 0 11/2022, 09/10/2022, Additional history exists GFR 10/30/2024 10/31/2023, 05/2023, 08/23/2023, Additional history exists DTap/Tdap Vaccines (3 - Td or Tdap) 10/10/2026 10/10/2016, 10/26/2005 Colonoscopy 04/18/2027 04/18/2022, 03/25, 08/10/2013, Additional history exists Colorectal Cancer Screening 04/18/2027 VITAMIN D LEVEL ONCE IN A LIFETIME-USE SMARTSET# [id number] Completed 01/28/2022, 02/21/2015, 12/30/2011 RETIRED - COLONOSCOPY-EVERY [...] this encounter Medical Devices Implanted Type Area Physician Office Rep Device Identifier Shelf Expiration Date Model / Serial / Lot Medtronic-05/27/2023 Implanted: (Quantity not on file) Neurostimulator MEDTRONIC : NEUROLOGIC PAIN 05/26/2049 [id number] / / [id number] Screw Jami Lacie 3 Ti Set - [id number] Implanted:Qt y: 6 on 03/10/2012 at [place] [facility] [place] Bilateral : Spine Lumbar LEVON : SPINE [id number] / / Screw Lacie Pa Ti 6.5x50mm - [id number] Implanted:Qt y: 4 on 03/10/2012 at OR [facility] [place] Bilateral : Spine Lumbar LEVON : SPINE [id number] / / Levon Xia3 7.0 X 40mm Screws Implanted:Qt y: 2 on 03/10/2012 at OR [facility] [place] Bilateral : Spine Lumbar [id number] / / Shaun Lacie 3 Ti 6x70mm - [id number] Implanted:Qt y: 1 on 03/10/2012 at OR [facility] [place] N/A: Spine Lumbar LEVON : SPINE [id number] / / Shaun Lacie 3 Ti Max 6x80mm - [id number] Implanted:Qt y: 1 on 03/10/2012 at OR [facility] [place] N/A: Spine Lumbar LEVON : SPINE [id number] / / 9 X 25 X 4 - 8 Avs Wedge Nose Cage Implanted:Qt y: 1 on 03/10/2012 at OR [facility] [place] N/A: Spine Lumbar [id number] / / Stent Synergy Xd Mr 2.50b28qz - [id number] Implanted:Qt y: 1 on 09/20/2020 at [facility] [place] Perosphere [id number] 04/18/2022 [id number] 6220 / / [id number] Stent Synergy Xd Mr 2.42h65br - [id number] Implanted:Qt y: 1 on 09/20/2020 at [facility] [place] Perosphere [id number] 04/25/2022 [id number] 2220 / / [id number] Screw Locking 4.5mm 15mm - [id number] Implanted:Qt y: 1 on 07/11/2022 by Sami Angelo DO at OR [facility] [place] Right: Shoulder [employer] 11/22/2025 108-4515 / / [id number] Bseplate Jasmeet Cmntlss W Scrw - [id number] Implanted:Qt y: 1 on 07/11/2022 by Sami Angelo DO at OR [facility] [place] Right: Shoulder [employer] 03/24/2027 105-0029 / / [id number] Glenosphere Rev Thee W Scrw - [id number] Implanted:Qt y: 1 on 07/11/2022 by Sami Angelo DO at [facility] Right: Shoulder [employer] 04/24/2027 105-3610 / / [id number] Screw Locking 4.5mm 15mm - [id number] Implanted:Qt y: 1 on 07/11/2022 by Sami Angelo DO at [place] [facility] [place] Right: Shoulder [employer] 03/24/2027 108-4515 / / [id number] Screw Locking 4.5mm 20mm - [id number] Implanted:Qt y: 1 on 07/11/2022 by Sami [...] / [id number] Screw Locking 4.5mm 20mm - [id number] Implanted:Qt y: 1 on 07/11/2022 by Sami [...] Pace Spouse Health Care Agent Care Teams Aircraft Structural Repairer Relationship Specialty Start Date End Date Keagan Jalloh MD [address] [place] [address] PCP - General Family Medicine 10/07/23 documented as of this encounter
--- OUTSIDE RECORDS SUMMARY | 2024-03-06 12:35 | External Medical Summary | Summary of Care ---
Author Name Unknown Organization [facility] Address [address] [facility] [place] [address] Phone [phone] Care Team Providers Care Manager Concrete Name Role Phone Keagan Sanchez MD Primary Care Provider Reason for Visit * Reason Onset Date Comments [facility]: Maintenance 11/21/2023 Encounter Details Date Type Department Care Team (Late st Contact Info) Description 11/21/2023 Telephone [facility], [facility] [address] [facility] [place] [address] Brenda Smith, [place] [address] [facility] [phone] [facility]: Maintenance Allergies Active Allergy Reactions Criticality Noted Date Comments Adhesive Tape 03/31/2023 Other Reaction(s): Tape- redness, paper tape/coban "ok", [id number] TAPE OK OR COBAN Clarithromycin High 03/31/2023 [...] Oral Tablet (Zetia)Indications :Coronary artery disease involving [place] coronary artery of [place] heart with unstable angina pectoris (HCC) TAKE [...] hypothyroidism 04/12/2021 Coronary artery disease invo lving [place] coronary artery of [place] heart without angina pectoris 09/27/2020 S/P angioplasty [...] Telephone Encounter - Brenda Smith RN - 11/21/2023 4:41 PM EDT Pt calling to notify [facility] she will be going to the [facility] this evening after discussing black stools and abd pain with PCP, wanted to let RASHAWN know. Pt on schedule for f/u call tomorrow. documented in this encounter Plan of Treatment Upcoming Encounters Date Type Department Care Team (Late st Contact Info) Description 11/22/2023 12:00 PM EDT Scheduled Telephone [facility], [facility] [address] [place] [address] [facility], Nurse [facility] [address] [place] [address] 11/25/2023 8:00 AM EDT Office Visit Neurology [facility] [place] [address] [facility] [place] [address] Kelly Waddell PA-C [address] [place] [address] 12/03/2023 8:30 AM EDT Appointment Radiology, [facility] [address] [place] [address] 12/09/2023 10:00 AM EDT Home Visit [facility], [facility] [address] [place] [address] Oriana Isaacs PA-C [address] [place] [address] 12/22/2023 1:40 PM EDT Office Visit Family [facility] 68 [place] [phone] Keagan Sanchez MD 68 [place] [address] 12/29/2023 12:30 PM EDT Home Visit [facility], [facility] [address] [place] [address] Nika Guevara RN 2407 [place] [address] 06/07/2024 11:00 AM EDT Office Visit Cardiology [address] [place] [phone] Angela Littlejohn CRNP [address] [place] [address] 08/09/2024 10:00 AM EDT Office Visit Orthopaedics Andrez Alejandre 16 [place] [phone] Sami Angelo DO 16 [place] [address] 10/07/2024 2:40 PM EDT Office Visit Dermatology [facility] 68 [place] [address] Alden Ann PA-C 68 [place] [address] Scheduled Procedures Name Priority Associated Diagnoses Date/Ti [...] D LEVEL ONCE IN A LIFETIME-USE SMARTSET# 86517 Completed 01/28/2022, 02/21/2015, 12/30/2011 RETIRED - COLONOSCOPY-EVERY [...] this encounter Medical Devices Implanted Type Area Supervisor Vendor Quality Device Identifier Shelf Expiration Date Model / Serial / Lot Medtronic-05/27/2023 Implanted: (Quantity not on file) Neurostimulator MEDTRONIC : NEUROLOGIC PAIN 05/26/2049 84560 / / [id number] Screw Jami Lacie 3 Ti Set - [id number] Implanted:Qt y: 6 on 03/10/2012 at OR [facility] Bilateral : Spine Lumbar LEVON : SPINE [id number] / / Screw Lacie Pa Ti 6.5x50mm - [id number] Implanted:Qt y: 4 on 03/10/2012 at OR [facility] Bilateral : Spine Lumbar LEVON : SPINE [id number] / / Levon Xia3 7.0 X 40mm Screws Implanted:Qt y: 2 on 03/10/2012 at OR [facility] Bilateral : Spine Lumbar [id number] / / Shaun Lacie 3 Ti 6x70mm - [id number] Implanted:Qt y: 1 on 03/10/2012 at OR [facility] N/A: Spine Lumbar LEVON : SPINE [id number] / / Shaun Lacie 3 Ti Max 6x80mm - [id number] Implanted:Qt y: 1 on 03/10/2012 at OR [facility] N/A: Spine Lumbar LEVON : SPINE [id number] / / 9 X 25 X 4 - 8 Avs Wedge Nose Cage Implanted:Qt y: 1 on 03/10/2012 at OR [facility] N/A: Spine Lumbar [id number] / / Stent Synergy Xd Mr 2.51j28uo - [id number] Implanted:Qt y: 1 on 09/20/2020 at [facility] [employer] [id number] 04/18/2022 [id number] 6220 / / [id number] Stent Synergy Xd Mr 2.64i99wd - [id number] Implanted:Qt y: 1 on 09/20/2020 at [facility] [employer] [id number] 04/25/2022 [id number] 2220 / / [id number] Screw Locking 4.5mm 15mm - [id number] Implanted:Qt y: 1 on 07/11/2022 by Sami Angelo DO at OR [facility] Right: Shoulder [employer] 11/22/2025 108-4515 / / [id number] Bseplate Jasmeet Cmntlss W Scrw - [id number] Implanted:Qt y: 1 on 07/11/2022 by Sami Angelo DO at OR [facility] Right: Shoulder [employer] 03/24/2027 105-0029 / / [id number] Glenosphere Rev Thee W Scrw - [id number] Implanted:Qt y: 1 on 07/11/2022 by Sami Angelo DO OR [facility] Right: Shoulder [employer] 04/24/2027 105-3610 / / T1980 Screw Locking 4.5mm 15mm - [id number] Implanted:Qt y: 1 on 07/11/2022 by Sami Angelo DO at OR [facility] Right: Shoulder [employer] 03/24/2027 108-4515 / / [id number] Screw Locking 4.5mm 20mm - [id number] Implanted:Qt y: 1 on 07/11/2022 by Sami Angelo DO at OR [facility] Right: Shoulder [employer] 03/24/2027 108-4520 / / [id number] Humelock Ii Stem Ta6v Size 12 Cementless Implanted:Qt y: 1 on 07/11/2022 by Sami Angelo DO at OR [facility] Right: Shoulder [employer] 10/22/2026 311-0212 / / [id number] Cortical Screw Ta6v, 5mm, L. 24mm Implanted:Qt y: 1 on 07/11/2022 by aSmi Angelo DO at OR [facility] Right: Shoulder [employer] 09/22/2023 107-4524 / / [id number] Humeral Cup 135/145 Degree, Standard, 36/+6 Implanted:Qt y: 1 on 07/11/2022 by Sami Angelo DO at OR [facility] Right: Shoulder 02/21/2025 313-0706 / / N0222 Screw Locking 4.5mm 20mm - [id number] Implanted:Qt y: 1 on 07/11/2022 by Sami Angelo DO at OR [facility] Right: Shoulder [employer] 03/24/2027 108-4520 [...] Agents on File Name Relationship Healthcare Agent Relationsoh p Communication Donny Pace Spouse Health Care Agent Care Teams Manager Concrete Relationship Specialty Start Date End Date Keagan Sanchez MD [address] [place] [address] PCP - General Family Medicine 10/07/23 documented as of this encounter
--- OUTSIDE RECORDS SUMMARY | 2024-03-06 12:35 | External Medical Summary ---
Author Name Unknown Address Unknown Organization K1G:[facility] - [address] [place] [id number] Laboratory Report Ordering Provider Test Date Status FLIP SESAY 11/21/2023 18:43:56 Final Observation Date Value Abnormality Reference (Units ) Status Troponin T 11/21/2023 18:43:56 8 <=14 (ng/ L) Final Performing Location [facility] [address]
--- OUTSIDE RECORDS SUMMARY | 2024-03-06 12:35 | External Medical Summary | Summary of Care ---
Author Name Unknown Organization [facility] Address [address] [facility] [place] [address] Phone [phone] Care Team Providers Care Muleser Name Role Phone Keagan Sanchez MD Primary Care Provider [phone] Reason for Visit * Reason Onset Date Comments [facility]: Maintenance 11/21/2023 Encounter Details Date Type Department Care Team (Late st Contact Info) Description 11/21/2023 11:15 AM EDT Scheduled Telephone [facility], [place] [facility] [address] [place] [address] Coordinator, [facility] [address] [place] [address] Allergies Active Allergy Reactions Criticality Noted Date Comments Adhesive Tape 03/31/2023 Other Reaction(s): Tape- redness, paper tape/coban "ok", [id number] TAPE OK OR COBAN Clarithromycin High 03/31/2023 [...] Oral Tablet (Zetia)Indication s:Coronary artery disease involving [place] coronary artery of [place] heart with unstable angina pectoris (HCC) TAKE [...] hypothyroidism 04/12/2021 Coronary artery disease invo lving [place] coronary artery of [place] heart without angina pectoris 09/27/2020 S/P angioplasty [...] - 11/21/2023 1:52 PM EDT [facility] Subprogram: Short-Term Management (less than 3 [...] and correspondence: DEMETRIUSI to [facility] Care Team vascular tech Pool please work on the following: contact the caller with advice and orders as above Dmitry Haley DO [facility] - [facility] 11/21/2023 Scheduled appointments in the next 60 days: Future Appointments-next 60 days Date/Time Provider Specialty Dept Phone 11/22/2023 12:00 PM [facility], Nurse [facility] [phone] 11/25/2023 8:00 AM (Arrive by 7:45 AM) Kelly Waddell PA-C Neurology [phone] 12/03/2023 8:30 AM (Arrive by 8:00 AM) [facility] Radiology [phone] 12/09/2023 10:00 AM Oriana Isaacs PA-C [facility] [phone] 12/22/2023 1:40 PM (Arrive by 1:25 PM) Keagan Sanchez MD Family Medicine [phone] 12/29/2023 12:30 PM Nika Guevara RN [facility] [phone] 06/07/2024 11:00 AM (Arrive by 10:45 AM) Angela Littlejohn CRNP Cardiology [phone] 08/09/2024 10:00 AM Sami Angelo DO Orthopedics [phone] 10/07/2024 2:40 PM (Arrive by 2:25 PM) Alden Ann PA-C Dermatology [phone] * Telephone Encounter - Diana Valentin RN - 11/21/2023 12:36 PM EDT Patient returned call to [facility] , she stated she is still having a lot of back pain , pain level is 7/10 today. She is taking Tramadol and Tylenol as needed for the back pain. MRI is scheduled but not until 12/02 at [facility]. Patient then stated she had "a [...] back with any recommendations. Diana Valentin RN [facility] Registered Nurse Navigator Triage * Telephone Encounter - Diana Valentin RN - 11/21/2023 10:30 AM EDT [facility] Telephonic Nurse Follow-Up Call [facility] Subprogram: Short-Term Management (less than 3 [...] no answer, left message,to return call to [facility] Disposition: Weekend call scheduled, may cancel if patient returns call today Future Visits Scheduled: Future Appointments-next 60 days Date/Time Provider Specialty Dept Phone 11/21/2023 11:15 AM Coordinator, [facility] [phone] 12/03/2023 8:30 AM (Arrive by 8:00 AM) [facility] Radiology [phone] 12/09/2023 10:00 AM Oriana Isaacs PA-C [facility] [phone] 12/22/2023 1:40 PM (Arrive by 1:25 PM) Keagan Sanchez MD Family Medicine [phone] 12/29/2023 12:30 PM Nika Guevara RN [facility] [phone] 06/07/2024 11:00 AM (Arrive by 10:45 AM) Angela Littlejohn CRNP Cardiology [phone] 08/09/2024 10:00 AM Sami Angelo DO Orthopedics [phone] 10/07/2024 2:40 PM (Arrive by 2:25 PM) Alden Ann PA-C Dermatology [phone] Diana Valentin RN [facility] Registered Nurse Navigator Triage documented in this encounter Plan of Treatment Upcoming Encounters Date Type Department Care Team (Late st Contact Info) Description 11/22/2023 12:00 PM EDT Scheduled Telephone [facility], [facility] [address] [place] [address] Region, Nurse [facility] [address] [place] [address] 11/25/2023 8:00 AM EDT Office Visit Neurology [facility] [address] [place] [address] Kelly Waddell PA-C [address] [facility] [place] [address] 12/03/2023 8:30 AM EDT Appointment Radiology, [place] [address] [place] [address] 12/09/2023 10:00 AM EDT Home Visit [facility], [facility] [address] [place] [address] Oriana Isaacs PA-C [address] [place] [address] 12/22/2023 1:40 PM EDT Office Visit Family Practice [facility] 68 [place] [address] Keagan Sanchez MD [address] [place] [address] 12/29/2023 12:30 PM EDT Home Visit [facility], [place] [facility] [address] [place] [address] Nika Guevara RN [address] [facility] [place] [address] 06/07/2024 11:00 AM EDT Office Visit Cardiology [facility] [address] [facility] [address] [place] [address] Angela Littlejohn CRNP [facility] [place] [address] 08/09/2024 10:00 AM EDT Office Visit Orthopaedics [facility] [place] [address] [place] [address] Sami Angelo 16 [place] [address] 10/07/2024 2:40 PM EDT Office Visit Dermatology [facility] 68 [place] [address] Alden Ann PA-C [address] [place] [address] Scheduled Procedures Name Priority Associated Diagnoses Date/Ti [...] D LEVEL ONCE IN A LIFETIME-USE SMARTSET# 10709 Completed 01/28/2022, 02/21/2015, 12/30/2011 RETIRED - COLONOSCOPY-EVERY [...] this encounter Medical Devices Implanted Type Area Print Support Specialist Device Identifier Shelf Expiration Date Model / Serial / Lot Medtronic-05/27/2023 Implanted: (Quantity not on file) Neurostimulator MEDTRONIC : NEUROLOGIC PAIN 05/26/2049 32817 / / [id number] Screw Jami Lacie 3 Ti Set - [id number] Implanted:Qt y: 6 on 03/10/2012 at [place] [facility] Bilateral : Spine Lumbar LEVON : SPINE [id number] / / Screw Lacie Pa Ti 6.5x50mm - [id number] Implanted:Qt y: 4 on 03/10/2012 at [facility] Bilateral : Spine Lumbar LEVON : SPINE [id number] / / Levon Xia3 7.0 X 40mm Screws Implanted:Qt y: 2 on 03/10/2012 at [place] [facility] Bilateral : Spine Lumbar [id number] / / Shaun Lacie 3 Ti 6x70mm - [id number] Implanted:Qt y: 1 on 03/10/2012 at [place] [facility] N/A: Spine Lumbar LEVON : SPINE [id number] / / Shaun Lacie 3 Ti Max 6x80mm - [id number] Implanted:Qt y: 1 on 03/10/2012 at [place] [facility] N/A: Spine Lumbar LEVON : SPINE [id number] / / 9 X 25 X 4 - 8 Avs Wedge Nose Cage Implanted:Qt y: 1 on 03/10/2012 at [place] [facility] N/A: Spine Lumbar [id number] / / Stent Synergy Xd Mr 2.75g97op - [id number] Implanted:Qt y: 1 on 09/20/2020 at [facility] [employer] [id number] 04/18/2022 [id number] 6220 / / [id number] Stent Synergy Xd Mr 2.22u20px - [id number] Implanted:Qt y: 1 on 09/20/2020 at [facility] [employer] [id number] 04/25/2022 [id number] 2220 / / [id number] Screw Locking 4.5mm 15mm - [id number] Implanted:Qt y: 1 on 07/11/2022 by Sami Angelo DO at [place] [facility] Right: Shoulder [employer] 11/22/2025 108-4515 / / [id number] Bseplate Jasmeet Cmntlss W Scrw - [id number] Implanted:Qt y: 1 on 07/11/2022 by Sami Angelo DO at [place] [facility] Right: Shoulder [employer] 03/24/2027 105-0029 / / [id number] Glenosphere Rev Thee W Scrw - [id number] Implanted:Qt y: 1 on 07/11/2022 by Sami Angelo DO at [place] [facility] Right: Shoulder [employer] 04/24/2027 105-3610 / / [id number] Screw Locking 4.5mm 15mm - [id number] Implanted:Qt y: 1 on 07/11/2022 by Sami Angelo DO at [place] [facility] Right: Shoulder [employer] 03/24/2027 108-4515 / / [id number] Screw Locking 4.5mm 20mm - [id number] Implanted:Qt y: 1 on 07/11/2022 by Sami [...] / [id number] Screw Locking 4.5mm 20mm - [id number] Implanted:Qt y: 1 on 07/11/2022 by Sami [...] Agents on File Name Relationship Healthcare Agent [facility] p Communication Donny Pace Spouse Health Care Agent Care Teams Muleser Relationship Specialty Start Date End Date Keagan Sanchez MD [address] [place] [address] PCP - General Family Medicine 10/07/23 documented as of this encounter
--- OUTSIDE RECORDS SUMMARY | 2024-03-06 12:35 | External Medical Summary | Summary of Care ---
Author Name Unknown Organization [facility] Address [address] [place] [address] Phone [phone] Care Team Providers Care Stove Carriage Operator Name Role Phone Keagan Sanchez MD Primary Care Provider [phone] Reason for Visit * Reason Comments Back Pain Abdominal Pain * Auth/Cert Specialty Diagnoses / Procedures Referred By Lynn helton Referred To Contact [facility] [address] [place] [address] Phone: [phone] Emergency Medicine [facility] [address] [place] [address] Referral ID Status Reason Start Date Expiration Date Visits Re quested Visits Authorized [id number] Encounter Details Date Type Department Care Team (Late st Contact Info) Description 11/21/2023 5:05 PM EDT - 11/21/2023 7:28 PM EDT Emergency [facility] Emergency Department ([facility]) [address] [place] [address] Shukri Azul MD [address] [place] [address] Epigastric pain (Primary Dx); Chest pain; Chronic left-sided low back pain with left-sided sciatica Discharge Disposition: Home - Self Care Allergies Active Allergy Reactions Criticality Noted Date Comments Adhesive Tape 03/31/2023 Other Reaction(s): Tape- redness, paper tape/coban "ok", FHQG-[id number]-AMOZF TAPE OK OR COBAN Clarithromycin High 03/31/2023 [...] Oral Tablet (Zetia)Indications :Coronary artery disease involving picayune coronary artery of picayune heart with unstable angina pectoris (HCC) TAKE [...] hypothyroidism 04/12/2021 Coronary artery disease invo lving picayune coronary artery of picayune heart without angina pectoris 09/27/2020 S/P angioplasty [...] Sign Reading Time Taken Comments Blood Pressure 123/56 11/21/2023 7:00 PM EDT Pulse 53 11/21/2023 7:00 PM EDT Temperature 36 C (96.8 F) 11/21/2023 5:06 PM EDT Respiratory Rate 28 11/21/2023 7:00 PM EDT Oxygen Saturation 97% 11/21/2023 7:00 PM EDT Inhaled Oxygen Concentration - - Weight 78.9 kg (174 lb) 11/21/2023 5:06 PM EDT Height - - Body Mass Index 29.87 11/19/2023 9:59 AM EDT documented in this [...] this encounter Discharge Instructions * Discharge Instructions* Josesito Basurto DO - 11/21/2023 7:23 PM EDT Please follow with your radiophone operator as an outpatient for recheck as we discussed. documented in this encounter ED Notes * Josesito Basurto DO - 11/21/2023 6:58 PM EDT Emergency Medicine Note [facility] [address] [facility] [address] Name: Shalini Pace Date and Time Patient was Seen: 11/21/23 1713 ED Addendum: Patient received in sign-out from Dr. Azul. The case and plan were discussed in detail. Shortly after receiving this patient in sign out the patient's EKG was performed that was found to be unremarkable for ischemic changes. Subsequent labs were resulted that showed normal troponin. Patient re- evaluated and continued to have benign exam. Patient advised of further symptomatic care to continue at home and reasons to return to the emergency department. Patient remained stable while under my care. ED Course as of 11/21/232313Nov 21, 2023 1720 Vitals reviewed, age-appropriate [GS] 1745 CBC with WBC Differential(!) Mild leukopenia, normocytic anemia have baseline [GS] 1745 Lactate, Whole Blood Within normal limits [GS] 1758 Lipase wnl [GS] 1808 Comprehensive Metabolic Panel(!) Mild elevation transaminases, moderate hyponatremia [GS] 1829 CT Abd/Pelvis with IV contrast - without oral contrast IMPRESSION: 1. No evidence of acute intrabdominal pathology. 2. Non-emergent findings, as above. [GS] 1836 Patient re-evaluated. Discussed her labs and imaging at which time she reports that she was having chest discomfort. Describes as sharp and stabbing and aching and burning pain. Will trial medications for GERD but also workup again with EKG and plan troponin to evaluate for ACS that overall low suspicion. If reassuring workup for ACS can plan discharge home with plan for follow-up with PCP to continue evaluating her lower back pain in her recurrent hyponatremia. [GS] 1838 Anticipate sign out to overnight dark pending cardiac workup. If reassuring can plan dischargehome [GS] 1857 EKG shows sinus bradycardia with otherwise normal intervals and left axis deviation. No acute signs of ischemia noted by my interpretation. [DM] 192 Troponin T, High Sensitivity: 8 [DM] ED Course User Index [DM] Josesito Basurto DO [GS] Shukri Azul MD DIAGNOSIS: Chest pain Epigastric pain Chronic left-sided low back pain with left-sided sciatica DISPOSITION: Discharged. See patient discharge instructions for additional information. * Shukri Azul MD - 11/21/2023 5:23 PM EDT HISTORY OF PRESENT ILLNESS Shalini Pace is a 63 year old female who presents to the ED for evaluation of Back Pain and Abdominal Pain. The patient was seen at 11/21/23 171. 63-year-old female with past medical history of low back pain secondary to spinal stenosis, CAD status post PCI, recurrent pancreatitis presents with back and abdominal pain. Patient reports left lower back pain with radiation down her left lower extremity has some associated numbness. This is a chronic complaint and she reports she was seen her PCP. She recently had x-rays that were reassuring but is working on scheduling an MRI for follow-up. She reports she takes tramadol with some improvement, takes the edge off of the pain. Patient also notes new abdominal discomfort starting yesterday. Pain is primarily across her epigastrium. She also reports associated dark bowel movements. She provides a picture and which she was who is dark/green stool but no black or tarry stool. She denies any lightheadedness or shortness of breath. No fever or chills. She is tolerating p.o.. The patient's allergies, past history, and medications were reviewed. PHYSICAL EXAM Initial Vitals (see all): BP 121/68 | Pulse 64 | Resp 18 | Temp 96.8 | O2 97 %, Room Air, None | Weight 78.93 kg | Height 162.6 cm | BMI 29.87 kg/m2 Initial Pain Assessment (see all): 8 (severe pain)/10, Stabbing , Sharp, location: Back/Abdomen ([facility] Adult Scale 0-10) Physical Exam Vitals and nursing note reviewed. Constitutional: General: She is not in acute distress. Appearance: She is well-developed. She is not diaphoretic. HENT: Head: Normocephalic. Nose: Nose normal. Eyes: Extraocular Movements: Extraocular movements intact. Pupils: Pupils are equal, round, and reactive to light. Cardiovascular: Rate and Rhythm: Normal rate and regular rhythm. Heart sounds: Normal heart sounds. No friction rub. Pulmonary: Effort: Pulmonary effort is normal. Breath sounds: Normal breath sounds. No rales. Abdominal: General: Abdomen is flat. Bowel sounds are normal. Palpations: Abdomen is soft. Tenderness: There is abdominal tenderness in the epigastric area. There is no guarding. Negative signs include Wilkes's sign. Musculoskeletal: Cervical back: Normal range of motion and neck supple. Skin: General: Skin is warm. Capillary Refill: Capillary refill takes less than 2 seconds. Neurological: General: No focal deficit present. Mental Status: She is alert and oriented to person, place, and time. Psychiatric: Mood and Affect: Mood normal. PROCEDURES AND TREATMENTS ED Orders | ED Results MEDICAL DECISION MAKING Nursing notes and vital signs were reviewed. ED Course as of 11/22/23 0703 FriNov 21, 2023 1720 Vitals reviewed, age-appropriate [GS] 1745 CBC with WBC Differential(!) Mild leukopenia, normocytic anemia have baseline [GS] 1745 Lactate, Whole Blood Within normal limits [GS] 1758 Lipase wnl [GS] 1808 Comprehensive Metabolic Panel(!) Mild elevation transaminases, moderate hyponatremia [GS] 1829 CT Abd/Pelvis with IV contrast - without oral contrast IMPRESSION: 1. No evidence of acute intrabdominal pathology. 2. Non-emergent findings, as above. [GS] 1836 Patient re-evaluated. Discussed her labs and imaging at which time she reports that she was having chest discomfort. Describes as sharp and stabbing and aching and burning pain. Will trial medications for GERD but also workup again with EKG and plan troponin to evaluate for ACS that overall low suspicion. If reassuring workup for ACS can plan discharge home with plan for follow-up with PCP to continue evaluating her lower back pain in her recurrent hyponatremia. [GS] 1838 Anticipate sign out to overnight dark pending cardiac workup. If reassuring can plan dischargehome [GS] 1857 EKG shows sinus bradycardia with otherwise normal intervals and left axis deviation. No acute signs of ischemia noted by my interpretation. [DM] 192 Troponin T, High Sensitivity: 8 [DM] ED Course User Index [DM] Josesito Basurto DO [GS] Shukri Azul MD Differential Diagnoses Based on my history, physical exam, and evaluation, the differential includes, but is not limited, to the following diagnoses: Gastritis, GI bleed, radiculopathy, musculoskeletal back pain, diverticulitis. Problems Addressed: Chronic left-sided low back pain with left-sided sciatica: chronic illness or injury Epigastric pain: acute illness or injury Amount and/or Complexity of Data Reviewed Labs: ordered. Decision-making details documented in ED Course. Radiology: ordered. Decision-making details documented in ED Course. ECG/medicine tests: ordered. Risk Prescription drug management. Clinical Impressions Chest pain Epigastric pain Chronic left-sided low back pain with left-sided sciatica Disposition No disposition documented. Shukri Azul documented in this encounter Miscellaneous Notes * Pt Handout (on AVS) - Josesito Basurto DO - 11/21/2023 7:23 PM EDT Images from the original note were not included. [id number] Epigastric Pain (Uncertain Cause) Epigastric pain is pain in the upper abdomen. It can be a sign of disease. Common causes include: Acid reflux (stomach acid flowing up into the esophagus) Gastritis (irritation of the stomach lining). Most often this is from aspirin or NSAIDs (nonsteroidal anti-inflammatory drugs) such as ibuprofen, bacteria called H. pylori, or frequent alcohol use. Peptic ulcer disease Inflammation of the pancreas (pancreatitis) Gallstone Inflammation in the gallbladder (cholecystitis) Pain may be dull or burning. It may spread upward to the chest or to the back. There may be other symptoms such as belching, bloating, cramps, or hunger pains. There may be weight loss or poor appetite, nausea, or vomiting. Since the cause of your pain is not certain yet, you may need more tests. Sometimes your healthcareprovider will treat you for the most likely condition to see if there is improvement before doing more tests. Talk with your provider about what is best for you. Home care Medicines Antacids help neutralize the normal acids in your stomach. If you don?t like the liquid, you cantry a chewable one. You may find one works better than another for you. Overuse can cause diarrhea or constipation. Call your provider if you have questions about your medicines or concerns about side effects. Acid blockers (H2 blockers) decrease acid production. Examples are cimetidine and famotidine. Acid inhibitors (PPIs) decrease acid production in a different way than blockers. You may find they work better but can take a little longer to take effect. Examples are omeprazole, lansoprazole, pantoprazole, rabeprazole, and esomeprazole. Many of these are available [id number] or as generics. Take an antacid 30 to 60 minutes after eating and at bedtime, but not at the same time as an acid jami. Try not to take NSAIDs such as ibuprofen. Aspirin may also cause problems, but if you are takingit for your heart or other medical reasons, talk to your healthcare provider before stopping it. Diet If certain foods seem to cause your pain, try not to eat them. Certain foods can worsen symptomsof gastritis. Limit or avoid fatty, fried, and spicy foods, as well as coffee, chocolate, mint, andfoods with high acid content such as tomatoes and citrus fruit and juices (orange, grapefruit, lemon). Eat slowly and chew food well before swallowing. Don't drink alcohol. It can irritate the stomach. If you have trouble giving up alcohol, ask your provider for treatment resources. Don't consume caffeine or use tobacco. These can delay healing and worsen your problem. Try eating smaller meals with snacks in between. Don't eat large meals before bedtime. Keep an empty stomach for 2 to 3 hours before lying down. Prop the head of the bed up if you have overnight symptoms. This helps acid clear from your esophagus. Follow-up care Follow up with your healthcare provider or as advised. When to seek medical advice Call your healthcare provider right away if any of the following occur: Stomach pain worsens or moves to the right lower part of the abdomen Frequent vomiting (can?t keep down liquids) Blood in the stool or vomit (red or black color) Fever of 100.4F (38C) or higher, or as directed by your healthcare provider Abdominal swelling Worsening symptoms or new symptoms Call 911 Call 911 if any of these occur: Chest pain appears, or if pain worsens or spreads to the back, neck, shoulder, or arm Feeling weak or dizzy, fainting, or having trouble breathing Last Reviewed Date: 02/21/202219992038-1270 [employer]. All rights reserved. This information is not intended as a substitute for professional medical care. Always follow your healthcare professional's instructions. * ED Marine Drafter Note - Jayesh Talavera RN - 11/21/2023 5:14 PM EDT Patient arrives to the ED with complaints of back pain, abdominal pain, and black stool starting about a week ago. PCP advised patient to come to ED. documented in this encounter Plan of Treatment Upcoming Encounters Date Type Department Care Team (Late st Contact Info) Description 11/22/2023 12:00 PM EDT Scheduled Telephone [facility] [place], [facility] [address] [place] [address] [facility], Nurse [facility] [address] [address] 11/25/2023 8:00 AM EDT Office Visit Neurology [facility] [address] [place] [address] Kelly Waddell [facility]-C [address] [facility] [place] [address] 12/03/2023 8:30 AM EDT Appointment Radiology, [facility] [place] [address] [place] [address] 12/09/2023 10:00 AM EDT Home Visit [facility] [place], [facility] [address] [place] [address] Oriana Isaacs PA-C [address] [place] [address] 12/22/2023 1:40 PM EDT Office Visit Family Practice [facility] [address] [place] [address] Keagan Sanchez MD [address] [place] [address] 12/29/2023 12:30 PM EDT Home Visit [facility], [facility] [address] [place] [address] Nika Guevara RN [address] [place] [address] 06/07/2024 11:00 AM EDT Office Visit Cardiology [facility] [address] [facility] [address] [place] [phone] Angela Littlejohn CRNP [address] [place] [address] 08/09/2024 10:00 AM EDT Office Visit Orthopaedics [facility] [address] [place] [address] Sami Angelo DO [address] [place] [address] 10/07/2024 2:40 PM EDT Office Visit Dermatology [facility] [address] [place] [address] Alden Ann PA-C [address] [place] [address] Scheduled Orders Name Type Priority Associated Diagnoses Orde r Schedule EKG EKG STAT Chest pain One Time for 1 Occurrences starting 11/21/2023 until 11/21/2023 Scheduled Procedures Name Priority Associated Diagnoses Date/Ti [...] D LEVEL ONCE IN A LIFETIME-USE SMARTSET# [id number] Completed 01/28/2022, 02/21/2015, 12/30/2011 RETIRED - COLONOSCOPY-EVERY [...] this encounter Medical Devices Implanted Type Area Disc Pad Knockout Worker Device Identifier Shelf Expiration Date Model / Serial / Lot Medtronic-05/27/2023 Implanted: (Quantity not on file) Neurostimulator [employer] : NEUROLOGIC PAIN 05/26/2049 [id number] / / [id number] Screw Jami Lacie 3 Ti Set - [id number] Implanted:Qt y: 6 on 03/10/2012 at OR [facility] Bilateral : Spine Lumbar LEVON : SPINE [id number] / / Screw Lacie Pa Ti 6.5x50mm - [id number] Implanted:Qt y: 4 on 03/10/2012 at [facility] Bilateral : Spine Lumbar LEVON : SPINE [id number] / / [place] Xia3 7.0 X 40mm Screws Implanted:Qt y: 2 on 03/10/2012 at OR [facility] Bilateral : Spine Lumbar [id number] / / Shaun Lacie 3 Ti 6x70mm - [id number] Implanted:Qt y: 1 on 03/10/2012 at OR [facility] N/A: Spine Lumbar LEVON : SPINE [id number] / / Shaun Lacie 3 Ti Max 6x80mm - [id number] Implanted:Qt y: 1 on 03/10/2012 at OR [facility] N/A: Spine Lumbar LEVON : SPINE [id number] / / 9 X 25 X 4 - 8 Avs Wedge Nose Cage Implanted:Qt y: 1 on 03/10/2012 at OR [facility] N/A: Spine Lumbar [id number] / / Stent Synergy Xd Mr 2.92x29kq - [id number] Implanted:Qt y: 1 on 09/20/2020 at [facility] [employer]Media [id number] 04/18/2022 [id number] / / [id number] Stent Synergy Xd Mr 2.59t40be - [id number] Implanted:Qt y: 1 on 09/20/2020 at [facility] [employer] [id number] 04/25/2022 [id number] / / [id number] Screw Locking 4.5mm 15mm - [id number] Implanted:Qt y: 1 on 07/11/2022 by Sami Angelo DO at OR [facility] Right: Shoulder [employer] 11/22/2025 108-4515 / / [id number] Bseplate Jasmeet Cmntlss W Scrw - [id number] Implanted:Qt y: 1 on 07/11/2022 by Sami Angelo DO OR [facility] Right: Shoulder [employer] 03/24/2027 105-0029 / / [id number] Glenosphere Rev Thee W Scrw - [id number] Implanted:Qt y: 1 on 07/11/2022 by Sami Angelo DO OR [facility] Right: Shoulder [employer] 04/24/2027 105-3610 / / [id number] Screw Locking 4.5mm 15mm - [id number] Implanted:Qt y: 1 on 07/11/2022 by Sami Angelo DO OR [facility] Right: Shoulder [employer] 03/24/2027 108-4515 / / [id number] Screw Locking 4.5mm 20mm - [id number] Implanted:Qt y: 1 on 07/11/2022 by Sami Angelo DO OR [facility] Right: Shoulder [employer] 03/24/2027 108-4520 / / [id number] Humelock Ii Stem Ta6v Size 12 Cementless Implanted:Qt y: 1 on 07/11/2022 by Sami Angelo DO OR [facility] Right: Shoulder [employer] 10/22/2026 [id number] / / [id number] Cortical Screw Ta6v, 5mm, L. 24mm Implanted:Qt y: 1 on 07/11/2022 by Sami Angelo DO at OR [facility] Right: Shoulder [employer] 09/22/2023 107-4524 / / [id number] Humeral Cup 135/145 Degree, Standard, 36/+6 Implanted:Qt y: 1 on 07/11/2022 by Sami Angelo DO at OR [facility] Right: Shoulder 02/21/2025 [id number] / / [id number] Screw Locking 4.5mm 20mm - [id number] Implanted:Qt y: 1 on 07/11/2022 by Sami Angelo DO at OR [facility] Right: Shoulder [employer] 03/24/2027 108-4520 / / [id number] documented as of this encounter Procedures Procedure Name Priority Date/Time Associated Diagnosis Comments TROPONIN T, HIGH SENSITIVITY STAT 11/21/2023 6:[address] ABD/PELVIS W IV CONTRAST - WO ORAL CONTRAST STAT 11/21/2023 5:52 PM EDT DIFFERENTIAL, AUTOMATED STAT 11/21/2023 5:30 PM EDT COMPREHENSIVE METABOLIC PANEL STAT 11/21/2023 5:30 PM EDT TYPE AND SCREEN STAT 11/21/2023 5:30 PM EDT CBC STAT 11/21/2023 5:30 PM EDT LIPASE STAT 11/21/2023 5:30 PM EDT LACTATE,WHOLE BLOOD STAT 11/21/2023 5 :30 PM EDT CBC STAT 11/21/2023 5:30 PM EDT documented in this encounter Results * TROPONIN T, HIGH SENSITIVITY (11/21/2023 6:43 PM EDT) Troponin T, High Sensitivity 8 <=14 ng/L 11/21/2023 7:06 PM EDT LABORATORY [facility] Blood Venous blood specimen / Unknown Venipuncture / Unknown 11/21/2023 6:43 PM EDT 11/21/2023 6:47 PM EDT Shukri Azul MD LAB BLOOD ORDERABLE S [facility] [place] [id number] [place] [address] * CT ABD/PELVIS W IV CONTRAST - WO ORAL CONTRAST (11/21/2023 5:52 PM EDT) Anatomical Region Laterality Modality Body, Abdomen, Pelvis Computed T omography 11/21/2023 5:45 PM EDT Impressions 11/21/2023 6:28 PM EDT IMPRESSION: 1. No evidence of acute intrabdominal pathology. 2. Non-emergent findings, as above. THIS DOCUMENT HAS BEEN ELECTRONICALLY SIGNED BY RANGEL COBOS MD Narrative 11/21/2023 6:28 PM EDT PROCEDURE INFORMATION: Exam: CT Abdomen And Pelvis With Contrast Exam date and time: 11/21/2023 5:45 PM Age: 63 years old Clinical indication: Abdominal pain; Generalized; TECHNIQUE: Imaging protocol: Computed tomography of the abdomen and pelvis with contrast. Radiation optimization: All CT scans at this facility use at least one of these dose optimization techniques: automated exposure control; mA and/or kV adjustment per patient size (includes targeted exams where dose is matched to clinical indication); or iterative reconstruction. Contrast material: ISOVUE 370; Contrast volume: 80 ml; Contrast route: INTRAVENOUS (IV); COMPARISON: CT ABD/PELVIS W IV CONTRAST - WO ORAL CONTRAST 10/31/2023 4:18 PM FINDINGS: Liver: Fatty infiltration. Gallbladder and biliary ducts: Cholecystectomy. Pancreas: Unremarkable. Spleen: Unremarkable. Adrenal glands: Normal. No mass. Kidneys and ureters: No hydronephrosis. Stomach and bowel: No obstruction. Fecal loading. Appendix: No evidence of appendicitis. Intraperitoneal space: No free air. No abscess. No ascites. Trace free fluid. Vasculature: Unremarkable. Lymph nodes: No significant adenopathy. Urinary bladder: Unremarkable as visualized. Reproductive: Hysterectomy. Bones/joints: No acute fracture. Lumbar fusion. Spinal stimulator. Mild scoliosis. Soft tissues: Unremarkable. Procedure Note Rangel Cobos MD - 11/21/2023 PROCEDURE INFORMATION: Exam: CT Abdomen And Pelvis With Contrast Exam date and time: 11/21/2023 5:45 PM Age: 63 years old Clinical indication: Abdominal pain; Generalized; TECHNIQUE: Imaging protocol: Computed tomography of the abdomen and pelvis withcontrast. Radiation optimization: All CT scans at this facility use at least one ofthese dose optimization techniques: automated exposure control; mA and/or kV adjustment per patient size (includes targeted exams where dose is matchedto clinical indication); or iterative reconstruction. Contrast material: ISOVUE 370; Contrast volume: 80 ml; Contrast route: INTRAVENOUS (IV); COMPARISON: CT ABD/PELVIS W IV CONTRAST - WO ORAL CONTRAST 10/31/2023 4:18 PM FINDINGS: Liver: Fatty infiltration. Gallbladder and biliary ducts: Cholecystectomy. Pancreas: Unremarkable. Spleen: Unremarkable. Adrenal glands: Normal. No mass. Kidneys and ureters: No hydronephrosis. Stomach and bowel: No obstruction. Fecal loading. Appendix: No evidence of appendicitis. Intraperitoneal space: No free air. No abscess. No ascites. Trace freefluid. Vasculature: Unremarkable. Lymph nodes: No significant adenopathy. Urinary bladder: Unremarkable as visualized. Reproductive: Hysterectomy. Bones/joints: No acute fracture. Lumbar fusion. Spinal stimulator. Mild scoliosis. Soft tissues: Unremarkable. IMPRESSION IMPRESSION: 1. No evidence of acute intrabdominal pathology. 2. Non-emergent findings, as above. THIS DOCUMENT HAS BEEN ELECTRONICALLY SIGNED BY RANGEL COBOS MD Shukri Azul MD RAD CT * (ABNORMAL) DIFFERENTIAL, AUTOMATED (11/21/2023 5:30 PM EDT) WBC 3.68(L) 4.00 - 10.80 K/uL 11/21/2023 5:41 PM EDT LAB[facility]AT[facility] Neutrophils % 52.2 40.0 - 75.0 % 11/21/2023 5:41 PM EDT [facility] Lymphocytes % 38.3 18.0 - 42.0 % 11/21/2023 5:41 PM EDT [facility] Monocytes % 8.7 1.0 - 11.0 % 11/21/2023 5:41 PM EDT [facility] Eosinophils % 0.5 0.0 - 6.0 % 11/21/2023 5:41 PM EDT LAB[facility]ATORY [facility] Basophils % 0.3 0.0 - 2.0 % 11/21/2023 5:41 PM EDT LABORATORY [facility] Absolute Neutrophils 1.92 1.80 - 7.70 K/uL 11/21/2023 5:41 PM EDT LABORATORY [facility] Absolute Lymphocytes 1.41 1.00 - 4.80 K/ul 11/21/2023 5:41 PM EDT LABORATORY [facility] Absolute Monocytes 0.32 0.00 - 1.10 K/uL 11/21/2023 5:41 PM EDT LABORATORY [facility] Absolute Eosinophils 0.02 0.00 - 0.70 K/uL 11/21/2023 5:41 PM EDT LABORATORY [facility] Absolute Basophils 0.01 0.00 - 0.20 K/uL 11/21/2023 5:41 PM EDT LABORATORY [facility] Blood Venous blood specimen / Unknown Venipuncture / Unknown 11/21/2023 5:30 PM EDT 11/21/2023 5:38 PM EDT Shukri Azul MD LAB BLOOD ORDERABLE S LAB[facility]ATORY [id number] [place] [address] * (ABNORMAL) CBC (11/21/2023 5:30 PM EDT) WBC 3.68(L) 4.00 - 10.80 K/uL 11/21/2023 5:41 PM EDT LABORATORY [facility] RBC 4.19 3.85 - 5.15 M/uL 11/21/2023 5:41 PM EDT LABORATORY [facility] HGB 11.6(L) 12.0 - 15.3 g/dL 11/21/2023 5:41 PM EDT LABORATORY [facility] HCT 35.3(L) 36.0 - 45.2 % 11/21/2023 5:41 PM EDT LABORATORY [facility] MCV 84.2 81.5 - 97.5 fL 11/21/2023 5:41 PM EDT LABORATORY [facility] MCH 27.7 27.0 - 34.0 pg 11/21/2023 5:41 PM EDT LABORATORY [facility] MCHC 32.9 32.0 - 36.0 g/dL 11/21/2023 5:41 PM EDT LABORATORY [facility] RDW 14.1 11.5 - 15.5 % 11/21/2023 5:41 PM EDT LABORATORY [facility] PLT 168 140 - 400 K/uL 11/21/2023 5:41 PM EDT LABORATORY [facility] MPV 9.5 6.6 - 11.1 fL 11/21/2023 5:41 PM EDT LABORATORY [facility] Blood Venous blood specimen / Unknown Venipuncture / Unknown 11/21/2023 5:30 PM EDT 11/21/2023 5:38 PM EDT Shukri Azul MD LAB BLOOD ORDERABLE S [facility]AT[facility] [id number] [place] [address] * TYPE AND SCREEN (11/21/2023 5:30 PM EDT) ABO A 11/21/2023 11:51 PM EDT LABORATORY [facility] BLOOD [facility] Rh Positive 11/21/2023 11:51 PM EDT LABORATORY [facility] BLOOD [facility] Red Blood Cell Antibody Screen Negative 11/21/2023 11:51 PM EDT LABORATORY [facility] BLOOD [facility] Specimen Expiration Date 11/24/2023 23:59 11/21/2023 11:51 PM EDT LABORATORY [facility] BLOOD [facility] Blood Venous blood specimen / Unknown Venipuncture / Unknown 11/21/2023 5:30 PM EDT 11/21/2023 5:38 PM EDT Shukri Azul MD LAB BLOOD BANK TEST ORDERABLES LABORATORY [facility] BLOOD BANK [address] [place] [address] * LIPASE (11/21/2023 5:30 PM EDT) Lipase 56 13 - 60 U/L 11/21/2023 5:58 PM EDT LABORATORY [facility] Blood Venous blood specimen / Unknown Venipuncture / Unknown 11/21/2023 5:30 PM EDT 11/21/2023 5:38 PM EDT Shukri Azul MD LAB BLOOD ORDERABLE S Performing Organization Address [facility]/ZIP Co de Phone Number LABORATORY [address] [address] * LACTATE,WHOLE BLOOD (11/21/2023 5:30 PM EDT) Pathologist [facility] Lactate, Whole Blood 1.7 0.4 - 2.0 mmol/L 11/21/2023 5:41 PM EDT LABORATORY [facility] Blood Venous blood specimen / Unknown Venipuncture / Unknown 11/21/2023 5:30 PM EDT 11/21/2023 5:38 PM EDT Shukri Azul MD LAB BLOOD ORDERABLE S Performing Organization Address [facility] Co de Phone Number LABORATORY [address] [address] * (ABNORMAL) COMPREHENSIVE METABOLIC PANEL (11/21/2023 5:30 PM EDT) [facility] BUN 12 6 - 20 mg/dL 11/21/2023 6:07 PM EDT LABORATORY [facility] Creatinine 0.7 0.5 - 1.0 mg/dL 11/21/2023 6:07 PM EDT LABORATORY [facility] Estimated Glomerular Filtration Rate >90 >=60 mL/min 11/21/2023 6:07 PM EDT LABORATORY [facility] Comment:eGFR is calculated b ased on the CKD-EPI 2020 equation. Sodium 127(L) 135 - 146 mmol/L 11/21/2023 6:07 PM EDT LABORATORY [facility] Potassium 4.1 3.5 - 5.1 mmol/L 11/21/2023 6:07 PM EDT LABORATORY [facility] Chloride 93(L) 98 - 107 mmol/L 11/21/2023 6:07 PM EDT LABORATORY [facility] CO2 22 22 - 32 mmol/L 11/21/2023 6:07 PM EDT LABORATORY [facility] Anion Gap 12 7 - 15 mmol/L 11/21/2023 6:07 PM EDT LABORATORY [facility] Glucose 105 70 - 120 mg/dL 11/21/2023 6:07 PM EDT LABORATORY [facility] Albumin 4.2 3.8 - 5.0 g/dL 11/21/2023 6:07 PM EDT LABORATORY [facility] AST 72(H) 10 - 35 U/L 11/21/2023 6:07 PM EDT LABORATORY [facility] Alkaline Phosphatase 61 35 - 130 U/L 11/21/2023 6:07 PM EDT LABORATORY [facility] Bilirubin, Total 0.3 <=1.2 mg/dL 11/21/2023 6:07 PM EDT LABORATORY [facility] Calcium 9.2 8.4 - 10.2 mg/dL 11/21/2023 6:07 PM EDT LABORATORY [facility] Protein 6.8 6.0 - 8.3 g/dL 11/21/2023 6:07 PM EDT LABORATORY [facility] ALT 91(H) 10 - 35 U/L 11/21/2023 6:07 PM EDT LABORATORY [facility] Blood Venous blood specimen / Unknown Venipuncture / Unknown 11/21/2023 5:30 PM EDT 11/21/2023 5:38 PM EDT Shukri Azul MD LAB BLOOD ORDERABLE S Performing Organization Address City/State/[facility] Co de Phone Number LABORATORY [id number] [place] [address] documented in this encounter Visit Diagnoses Diagnosis Epigastric pain- Primary Abdominal pain, epigastric Chest pain Chest pain, unspecified Chronic left-sided low back pain with left-sided sciatica documented in this encounter Administered Medications Inactive Administered Medications - up to 3 most recent administrations Medication Order MAR Action Action Date Dose Rate Site Famotidine (Pepcid) tab 20 mg 20 mg, Oral, ONCE, On Fri11/21/23 at 191, For 1 dose Given 11/21/2023 6:42 PM EDT 20 mg hydrOXYzine HCl tab 25 mg 25 mg, Oral, ONCE, On Fri11/21/23 at 191, For 1 dose Given 11/21/2023 6:42 PM EDT 25 mg Iopamidol (Isovue 370) inj 80 mL 80 mL, Intravenous, ONCE, On Fri11/21/23 at 1830, For 1 dose, Radiology Medication Routing (Non-IR) Given 11/21/2023 5:52 PM EDT 80 mL keTORolac (Toradol) 15 MG/ML inj 15 mg 15 mg, IV Push, ONCE, On Fri11/21/23 at 2000, For 1 dose Given 11/21/2023 7:28 PM EDT 15 mg Morphine Sulfate (PF) inj 4 mg 4 mg, Intramuscular, ONCE, On Fri11/21/23 at 1830, For 1 dose Given 11/21/2023 6:03 PM EDT 4 mg Arm Left Upper ondansetron (Zofran) inj 4 mg 4 mg, IV Push, ONCE, On Fri11/21/23 at 1830, For 1 dose Given 11/21/2023 6:03 PM EDT 4 mg Sucralfate (Carafate) susp 1,000 mg 1,000 mg (1 g), Oral, ONCE, On Fri11/21/23 at 1915, For 1 dose, Shake well! Given 11/21/2023 6:42 PM EDT 1,000 mg documented in this encounter Active and Recently Administered Medications Times are shown in EDT. Scheduled Medication Order 11/19/2023 11/20/2023 11/21/2023 Famotidine (Pepcid) tab 20 mg (COMPLETED) 20 mg, Oral, ONCE, On Fri11/21/23 at 1915, For 1 dose 1841 (Given - Provid er: Jayesh Talavera RN) hydrOXYzine HCl tab 25 mg (COMPLETED) 25 mg, Oral, ONCE, On Fri11/21/23 at 1915, For 1 dose 1841 (Given - Provid er: Jayesh Talavera RN) Iopamidol (Isovue 370) inj 80 mL (COMPLETED) 80 mL, Intravenous, ONCE, On Fri11/21/23 at 1830, For 1 dose, Radiology Medication Routing (Non-IR) 1751 (Given - Provid er: Radha Sharma, RT) keTORolac (Toradol) 15 MG/ML inj 15 mg (COMPLETED) 15 mg, IV Push, ONCE, On Fri11/21/23 at 2000, For 1 dose 1927 (Given - Provid er: John Stein RN) Morphine Sulfate (PF) inj 4 mg (COMPLETED) 4 mg, Intramuscular, ONCE, On Fri11/21/23 at 1830, For 1 dose 1802 (Given - Provid er: Jayesh Talavera RN) ondansetron (Zofran) inj 4 mg (COMPLETED) 4 mg, IV Push, ONCE, On Fri11/21/23 at 1830, For 1 dose 1802 (Given - Provid er: Jayesh Talavera RN) Sucralfate (Carafate) susp 1,000 mg (COMPLETED) 1,000 mg (1 g), Oral, ONCE, On Fri11/21/23 at 1915, For 1 dose, Shake well! 1841 (Given - Provid er: Jayesh Talavera RN) documented in this encounter Advance Directives [...] Care Agent [phone] (Mobile) Care Teams Stove Carriage Operator Relationship Specialty Start Date End Date Keagan Sanchez MD [address] [place] [id number] PCP - General Family Medicine 10/07/23 documented as of this encounter
--- OUTSIDE RECORDS SUMMARY | 2024-03-06 12:36 | External Medical Summary ---
Author Name Unknown Address Unknown Organization K1G:LABORATORY [facility] - [address] [place] [id number] Laboratory Report Ordering Provider Test Date Status FLIP SESAY 11/21/2023 17:30:34 Final Observation Date Value Abnormality Reference (Units ) Status BUN 11/21/2023 17:30:34 12 6-20 (mg/dL) Final Creatinine 11/21/2023 17:30:34 0.7 0.5-1.0 (mg/dL) Final Glomerular filtration rate/1.73 sq M.predicted [Volume Rate/Area] in Serum, Plasma or Blood by Creatinine-based formula (CKD-EPI) 11/21/2023 17:30:34 >90 >=60 (mL/min) Final eGFR is calculated based on the CKD-EPI 2020 equation. Sodium 11/21/2023 17:30:34 127 Below low normal 135 -146 (mmol/L) Final Potassium 11/21/2023 17:30:34 4.1 3.5-5.1 (m mol/L) Final Cl 11/21/2023 17:30:34 93 Below low normal 98- 107 (mmol/L) Final CO2 11/21/2023 17:30:34 22 22-32 (mmo l/L) Final Anion gap 11/21/2023 17:30:34 12 7-15 (mmol /L) Final Glucose 11/21/2023 17:30:34 105 70-120 (mg /dL) Final Albumin 11/21/2023 17:30:34 4.2 3.8-5.0 (g /dL) Final AST (Aspartate aminotransferase) 11/21/2023 17:30:34 72 Above high normal 10-35 (U/L) Final Alk Phos 11/21/2023 17:30:34 61 35-130 (U/ L) Final Bilirubin, Total 11/21/2023 17:30:34 0.3 <=1 .2 (mg/dL) Final Calcium 11/21/2023 17:30:34 9.2 8.4-10.2 ( mg/dL) Final Protein 11/21/2023 17:30:34 6.8 6.0-8.3 (g /dL) Final ALT (Alanine aminotransferase) 11/21/2023 17:30:34 91 Above high normal 10-35 (U/L) Final Performing Location LABORATORY [facility] - [facility] [address]
--- OUTSIDE RECORDS SUMMARY | 2024-03-06 12:36 | External Medical Summary ---
Author Name Unknown Address Unknown Organization K1G:LABORATORY [facility] - [address] [place] [id number] Laboratory Report Ordering Provider Test Date Status FLIP SESAY 11/21/2023 17:30:34 Final Observation Date Value Abnormality Reference (Units ) Status WBC, Total 11/21/2023 17:30:34 3.68 Below low normal 4. 00-10.80 (K/uL) Final RBC 11/21/2023 17:30:34 4.19 3.85-5.15 (M/uL) Final Hemoglobin 11/21/2023 17:30:34 11.6 Below low normal 12 .0-15.3 (g/dL) Final HCT 11/21/2023 17:30:34 35.3 Below low normal 36. 0-45.2 (%) Final MCV 11/21/2023 17:30:34 84.2 81.5-97.5 (fL) Final MCH 11/21/2023 17:30:34 27.7 27.0-34.0 (pg) Final MCHC 11/21/2023 17:30:34 32.9 32.0-36.0 (g/dL) Final RDW 11/21/2023 17:30:34 14.1 11.5-15.5 (%) Final Platelets 11/21/2023 17:30:34 168 140-400 (K /uL) Final MPV 11/21/2023 17:30:34 9.5 6.6-11.1 ( fL) Final Performing Location LABORATORY [facility] - [address] [place] [phone]
--- OUTSIDE RECORDS SUMMARY | 2024-03-06 12:36 | External Medical Summary | Summary of Care ---
Author Name Unknown Organization [facility] Address [address] [facility] [place] [address] Phone [phone] Care Team Providers Care Enamel Pulverizer Name Role Phone Keagan Sanchez MD Primary Care Provider [phone] Reason for Visit * Reason Onset Date Comments [facility]: Maintenance 11/21/2023 Encounter Details Date Type Department Care Team (Late st Contact Info) Description 11/21/2023 11:15 AM EDT Scheduled Telephone [facility], [place] [address] [place] [address] Coordinator, [facility] [address] [place] [address] Allergies Active Allergy Reactions Criticality Noted Date Comments Adhesive Tape 03/31/2023 Other Reaction(s): Tape- redness, paper tape/coban "ok", [id number] TAPE OK OR COBAN Clarithromycin High 03/31/2023 [...] Oral Tablet (Zetia)Indications :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 She is taking Tramadol and Tylenol as needed for the back pain. MRI is scheduled but not until 12/02 at [facility]. Patient then stated she had "a [...] back with any recommendations. Diana Valentin RN [facility] Registered Nurse Navigator Triage * Telephone Encounter - Diana Valentin RN - 11/21/2023 10:30 AM EDT [facility] Telephonic Nurse Follow-Up Call Health system Subprogram: Short-Term Management (less than 3 months) [...] no answer, left message,to return call to [facility] Disposition: Weekend call scheduled, may cancel if patient returns call today Future Visits Scheduled: Future Appointments-next 60 days Date/Time Provider Specialty Dept Phone 11/21/2023 11:15 AM Coordinator, [facility] [phone] 12/03/2023 8:30 AM (Arrive by 8:00 AM) [facility] Radiology [phone] 12/09/2023 10:00 AM Oriana Isaacs PA-C [facility] [phone] 12/22/2023 1:40 PM (Arrive by 1:25 PM) Keagan Sanchez MD Family Medicine [phone] 12/29/2023 12:30 PM Nika Guevara RN [facility] [phone] 06/07/2024 11:00 AM (Arrive by 10:45 AM) Angela Littlejohn CRNP Cardiology [phone] 08/09/2024 10:00 AM Sami Angelo DO Orthopedics [phone] 10/07/2024 2:40 PM (Arrive by 2:25 PM) Alden Ann PA-C Dermatology [phone] Diana Valentin RN [facility] Registered Nurse Navigator Triage documented in this encounter Plan of Treatment Upcoming Encounters Date Type Department Care Team (Late st Contact Info) Description 11/22/2023 12:00 PM EDT Scheduled Telephone [facility], [facility] [address] [place] [address] [facility], Nurse [facility] [address] [place] [address] 12/03/2023 8:30 AM EDT Appointment Radiology, [place] [address] [place] [address] 12/09/2023 10:00 AM EDT Home Visit [facility], [facility] [address] [place] [address] Oriana Isaacs PA-C [address] [place] [address] 12/22/2023 1:40 PM EDT Office Visit [address] [phone] Keagan Sanchez MD [address] [place] [address] 12/29/2023 12:30 PM EDT Home Visit [facility] [place] [address] [place] [address] Nika Guevara RN [address] [place] [address] 01/26/2024 9:20 AM EST Office Visit Neurology [facility] [address] [place] [address] Kurt Sibley MD [address] [place] [address] 06/07/2024 11:00 AM EDT Office Visit Cardiology [facility] [address] [facility] [address] [place] [address] Angela Littlejohn CRNP [address] [place] [address] 08/09/2024 10:00 AM EDT Office Visit Orthopaedics [facility] [address] [place] [address] Sami Angelo DO [address] [place] [address] 10/07/2024 2:40 PM EDT Office Visit Dermatology [facility] [address] [place] [phone] Alden Ann PA-C [address] [place] [address] Scheduled Procedures Name Priority Associated Diagnoses Date/Ti [...] D LEVEL ONCE IN A LIFETIME-USE SMARTSET# 35219 Completed 01/28/2022, 02/21/2015, 12/30/2011 RETIRED - COLONOSCOPY-EVERY [...] this encounter Medical Devices Implanted Type Area Head Of Commission Department Device Identifier Shelf Expiration Date Model / Serial / Lot Medtronic-05/27/2023 Implanted: (Quantity not on file) Neurostimulator [employer] : NEUROLOGIC PAIN 05/26/2049 14575 / / [id number] Screw Jami Lacie 3 Ti Set - [id number] Implanted:Qt y: 6 on 03/10/2012 at [place] [facility] Bilateral : Spine Lumbar LEVON : SPINE [id number] / / Screw Lacie Pa Ti 6.5x50mm - [id number] Implanted:Qt y: 4 on 03/10/2012 at [facility] Bilateral : Spine Lumbar LEVON : SPINE [id number] / / Levon Xia3 7.0 X 40mm Screws Implanted:Qt y: 2 on 03/10/2012 at [facility] Bilateral : Spine Lumbar [id number] / / Shaun Lacie 3 Ti 6x70mm - [id number] Implanted:Qt y: 1 on 03/10/2012 at [place] [facility] N/A: Spine Lumbar LEVON : SPINE [id number] / / Shaun Lacie 3 Ti Max 6x80mm - [id number] Implanted:Qt y: 1 on 03/10/2012 at OR [facility] N/A: Spine Lumbar LEVON : SPINE [id number] / / 9 X 25 X 4 - 8 Avs Wedge Nose Cage Implanted:Qt y: 1 on 03/10/2012 at [facility] N/A: Spine Lumbar [id number] / / Stent Synergy Xd Mr 2.98i02an - [id number] Implanted:Qt y: 1 on 09/20/2020 at [facility] Touch[employer]ent [id number] 04/18/2022 [id number] / / [id number] Stent Synergy Xd Mr 2.82e40tg - [id number] Implanted:Qt y: 1 on 09/20/2020 at [facility] [employer] [id number] 04/25/2022 [id number] / / [id number] Screw Locking 4.5mm 15mm - [id number] Implanted:Qt y: 1 on 07/11/2022 by Sami Angelo DO at [place] [facility] Right: Shoulder [employer] 11/22/2025 108-4515 / / [id number] Bseplate Jasmeet Cmntlss W Scrw - [id number] Implanted:Qt y: 1 on 07/11/2022 by Sami Angelo DO at [place] [facility] Right: Shoulder [employer] 03/24/2027 105-0029 / / [id number] Glenosphere Rev Thee W Scrw - [id number] Implanted:Qt y: 1 on 07/11/2022 by Sami Angelo DO at [place] [facility] Right: Shoulder [employer] 04/24/2027 105-3610 / / [id number] Screw Locking 4.5mm 15mm - [id number] Implanted:Qt y: 1 on 07/11/2022 by Sami Angelo DO at [place] [facility] Right: Shoulder [employer] 03/24/2027 108-4515 / / [id number] Screw Locking 4.5mm 20mm - [id number] Implanted:Qt y: 1 on 07/11/2022 by Sami Angelo DO at OR [facility] Right: Shoulder [employer] 03/24/2027 108-4520 / / [id number] Humelock Ii Stem Ta6v Size 12 Cementless Implanted:Qt y: 1 on 07/11/2022 by Sami Angelo DO at OR [facility] Right: Shoulder [employer] 10/22/2026 [id number] / / [id number] Cortical Screw Ta6v, 5mm, L. 24mm Implanted:Qt y: 1 on 07/11/2022 by Sami Angelo DO at [facility] Right: Shoulder [employer] 09/22/2023 107-4524 / / [id number] Humeral Cup 135/145 Degree, Standard, 36/+6 Implanted:Qt y: 1 on 07/11/2022 by Sami Angelo DO at OR [facility] Right: Shoulder 02/21/2025 [id number] / / [id number] Screw Locking 4.5mm 20mm - [id number] Implanted:Qt y: 1 on 07/11/2022 by Sami Angelo, at [place] [facility] Right: Shoulder [employer]IONS [...] Pace Spouse Health Care Agent Care Teams Enamel Pulverizer Relationship Specialty Start Date End Date Keagan Sanchez MD [address] [place] [phone] PCP - General Family Medicine 10/07/23 documented as of this encounter
--- OUTSIDE RECORDS SUMMARY | 2024-03-06 12:36 | External Medical Summary | Summary of Care ---
Author Name Unknown Organization [facility] Address [address] [facility] [place] [address] Phone [phone] Care Team Providers Care Coal Wheeler Name Role Phone Keagan Sanchez MD Primary Care Provider [phone] Reason for Visit * Reason Onset Date Comments [facility]: Acute 11/18/2023 Encounter Details Date Type Department Care Team (Late st Contact Info) Description 11/18/2023 Telephone [facility], [facility] [address] [facility] [place] [id number] Rachna Gama RN [address] [place] [address] [facility]: Acute Allergies Active Allergy Reactions Criticality Noted Date Comments Adhesive Tape 03/31/2023 Other Reaction(s): Tape- redness, paper tape/coban "ok", [id number] TAPE OK OR COBAN Clarithromycin High 03/31/2023 Other Reaction(s): Rash, diarrhea, RASH,DIARRHEA Duloxetine Hcl Flushing,Nausea/vomi tin g High 10/20/2019 Erythromycin Base Rash 03/14/2004 Orlistat Low 03/31/2023 Other Reaction(s): GI UPSET Penicillins Rash 03/14/2004 Prednisone Other (Please comment) High 10/10/2023 pancreatitis Sulfa Antibiotics Rash 03/14/2004 documented as of this encounter (statuses as of 11/19/2023) Medications Medication Sig Dispensed Refills Start Date [...] Oral Tablet (Zetia)Indications :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 90 Tablet 11/14/2023 Active documented as of this encounter (statuses as of 11/19/2023) Active Problems Problem Noted Date Diagnosed Date [...] hypothyroidism 04/12/2021 Coronary artery disease invo lving sycuan coronary artery of sycuan heart without angina pectoris 09/27/2020 S/P angioplasty [...] as of this encounter (statuses as of 11/19/2023) Resolved Problems Problem Noted Date Diagnosed Date [...] as of this encounter (statuses as of 11/19/2023) Immunizations Name Administration Dates Next Due COVID-19 mRNA, LNP-s, No Pre serve, 2-Dose Series (Moderna) 01/17/2021,05/23/2020,04/17/2020 COVID-19, mRNA, LNP-s, PF, B ooster, 100mcg/0.5mg (Moderna) 07/11/2021 Covid-19, Mrna, Lnp-s, Pf, Bivalent, 50 Mcg, IM, 12 yrs and above (Moderna) 12/24/2021 Season Influenza, Cell Cultu re, 18+ Yrs, With Preserv (Flucelvax) 01/14/2014 Seasonal Influenza, PF, 6 M & above, IM , (FluLaval or Fluzone) 01/21/2023,12/03/2021,12/15/2020, 0 20,12/17/2018,04/28/2018 Seasonal Influenza, Quadriva lent, No Preserve, IM 12/18/2015 Seasonal Influenza, Quadriva lent, No Preserve, Mdck 12/05/2016 Seasonal Influenza, Split, I IV3, With Preserve, Inj 12/08/2014,01/12/2013,11/26/2011, 0 11 TDAP (age 10 and [...] Instructed her to f/u with PCP and [facility] team will need to review the situation. [facility] scheduled for tomorrow. Pt is discourtaged that no PC received back today. Instructd her to call Dr Sanchez tomorrow to f/u. Rachna Gama RN [facility] Intake [phone] * Telephone Encounter - Dmitry Haley DO - 11/18/2023 3:57 PM EDT [facility] Remote Medical Command [facility] Subprogram: Short-Term Management (less than 3 months) Recommendations: I would defer to the care team for recommendations on how to best manage this acute on chronic painfrom longstanding back issues. In the [facility] role would not recommend advanced imaging and [...] by 9:45 AM) Anai Schultz PA-C Gastroenterology [phone] 11/19/2023 2:30 PM Coordinator, [facility] [phone] 11/20/2023 9:45 AM Coordinator, [facility] [phone] 12/09/2023 10:00 AM Oriana Isaacs PA-C [facility] [phone] 12/22/2023 1:40 PM (Arrive by 1:25 PM) Keagan Sanchez MD Family Medicine [phone] 12/29/2023 12:30 PM Nika Guevara RN [facility] [phone] 06/07/2024 11:00 AM (Arrive by 10:45 AM) Angela Littlejohn CRNP Cardiology [phone] 08/09/2024 10:00 AM Sami Angelo DO Orthopedics [phone] 10/07/2024 2:40 PM (Arrive by 2:25 PM) Alden Ann PA-C Dermatology [phone] * Telephone Encounter - Rachna Gama RN - 11/18/2023 2:02 PM EDT [facility] dairy bacteriologist Acute Call Date: 11/18/2023 Time: 2:02 PM Name: Shalini Pace : 1960 Caller: Patient HPI: Shalini Pace is a 63 year old old female that is calling [facility] to report: She is calling as she was instructed by Nika [facility]AY [facility]. She was instructed to call [facility] for worsening back pain. Seen by RNCM [...] back for local relief of pain. Call [facility] for worsening sxs Prone to falls- use walker at al times for ambulation. May need further diagnostics. Will call back with recommendations. Treatment/Plan: (need to report) Level of call: Acute Appointment scheduled for same day: No Routing to [facility] and Team for further recommednations. Will include Keagan Sanchez MD. PC's scheduled. Rachna Gama RN [facility] Intake [phone] documented in this encounter Plan of Treatment Upcoming Encounters Date Type Department Care Team ([facility] Contact Info) Description 11/20/2023 9:45 AM EDT Scheduled Telephone [facility], [place] [address] [place] [address] Coordinator, [facility] [place] [address] [place] [address] 11/20/2023 10:20 AM EDT Office Visit [facility] [address] [place] [phone] Jamarcus Carreno PA-C [address] [place] [phone] 12/09/2023 10:00 AM EDT Home Visit [facility], [place] [facility] [address] [place] [address] Oriana Isaacs PA-C [address] [place] [address] 12/22/2023 1:40 PM EDT Office Visit Family Practice [facility] [address] [place] [address] Keagan Sanchez MD [address] [place] [address] 12/29/2023 12:30 PM EDT Home Visit [facility], [facility] [address] [place] [address] Nika Guevara RN [address] [place] [address] 06/07/2024 11:00 AM EDT Office Visit Cardiology [address] [place] [phone] Angela Littlejohn CRNP [address] [place] [address] 08/09/2024 10:00 AM EDT Office Visit Orthopaedics Andrez Alejandre [address] [place] [address] Sami Angelo DO [address] [place] [address] 10/07/2024 2:40 PM EDT Office Visit Dermatology [facility] [address] [place] [address] Alden Ann PA-C [address] [place] [phone] Scheduled Procedures Name Priority Associated Diagnoses Date/Ti [...] D LEVEL ONCE IN A LIFETIME-USE SMARTSET# [id number] Completed 01/28/2022, 02/21/2015, 12/30/2011 RETIRED - COLONOSCOPY-EVERY [...] this encounter Medical Devices Implanted Type Area Culinary Worker Device Identifier Shelf Expiration Date Model / Serial / Lot Screw Jami Lacie 3 Ti Set - [id number] Implanted:Qty: 6 on 03/10/2012 at [facility] Bilateral: Spine Lumbar LEVON : SPINE [id number] / / Screw Lacie Pa Ti 6.5x50mm - [id number] Implanted:Qty: 4 on 03/10/2012 at [facility] Bilateral: Spine Lumbar LEVON : SPINE [id number] / / Levon Xia3 7.0 X 40mm Screws Implanted:Qty: 2 on 03/10/2012 at [facility] Bilateral: Spine Lumbar [id number] / / Shaun Lacie 3 Ti 6x70mm - [id number] Implanted:Qty: 1 on 03/10/2012 at [facility] N/A: Spine Lumbar LEVON : SPINE [id number] / / Shaun Lacie 3 Ti Max 6x80mm - [id number] Implanted:Qty: 1 on 03/10/2012 at [facility] N/A: Spine Lumbar LEVON : SPINE [id number] / / 9 X 25 X 4 - 8 Avs Wedge Nose Cage Implanted:Qty: 1 on 03/10/2012 at [facility] N/A: Spine Lumbar [id number] / / Stent Synergy Xd Mr 2.77x89hg - [id number] Implanted:Qty: 1 on 09/20/2020 at [facility] Apse [id number] 04/18/2022 [id number] 220 / / [id number] Stent Synergy Xd Mr 2.63m59vo - [id number] Implanted:Qty: 1 on 09/20/2020 at [facility] Apse [id number] 04/25/2022 [id number] 220 / / [id number] Screw Locking 4.5mm 15mm - [id number] Implanted:Qty: 1 on 07/11/2022 by Sami Angelo DO at [facility] Right: Shoulder [employer] 11/22/2025 108-4515 / / [id number] Bseplate Jasmeet Cmntlss W Scrw - [id number] Implanted:Qty: 1 on 07/11/2022 by Sami Angelo DO at [facility] Right: Shoulder [employer] 03/24/2027 105-0029 / / [id number] Glenosphere Rev Thee W Scrw - [id number] Implanted:Qty: 1 on 07/11/2022 by Sami Angelo DO at [facility] Right: Shoulder [employer] 04/24/2027 105-3610 / / [id number] Screw Locking 4.5mm 15mm - [id number] Implanted:Qty: 1 on 07/11/2022 by Sami Angelo DO at [facility] Right: Shoulder [employer] 03/24/2027 108-4515 / / [id number] Screw Locking 4.5mm 20mm - [id number] Implanted:Qty: 1 on 07/11/2022 by Sami Angelo DO at [facility] Right: Shoulder [employer] 03/24/2027 108-4520 / / [id number] Humelock Ii Stem Ta6v Size 12 Cementless Implanted:Qty: 1 on 07/11/2022 by Sami Angelo DO at [facility] Right: Shoulder [employer] 10/22/2026 [id number] / / [id number] Cortical Screw Ta6v, 5mm, L. 24mm Implanted:Qty: 1 on 07/11/2022 by Sami Angelo DO at [facility] Right: Shoulder [employer] 09/22/2023 107-4524 / / [id number] Humeral Cup 135/145 Degree, Standard, 36/+6 Implanted:Qty: 1 on 07/11/2022 by Sami Angelo DO at [facility] Right: Shoulder 02/21/2025 313-0706 / / [id number] Screw Locking 4.5mm 20mm - [id number] Implanted:Qty: 1 on 07/11/2022 by Sami Angelo DO at [facility] Right: Shoulder FX [...] Name Relationship Healthcare Agent Relationshi p Communication oDnny Pace Spouse Health Care Agent Care Teams Coal Wheeler Relationship Specialty Start Date End Date Keagan Sanchez MD [address] [place] [address] PCP - General Family Medicine 10/07/23 documented as of this encounter
--- OUTSIDE RECORDS SUMMARY | 2024-03-06 12:36 | External Medical Summary ---
Author Name Unknown Address Unknown Organization [id number]:[facility] - [address] [place] [id number] Laboratory Report Ordering Provider Test Date Status FLIP SESAY 11/21/2023 17:30:34 Final Observation Date Value Abnormality Reference (Units ) Status SYNC LEUKOCYTES IN BLOOD BY AUTOMATED COUNT 11/21/2023 17:30:34 3.68 Below low normal 4.00-10.80 (K/uL) Final Segs 11/21/2023 17:30:34 52.2 40.0-75.0 (%) Final Lymphs % 11/21/2023 17:30:34 38.3 18.0-42.0 (%) Final Monos 11/21/2023 17:30:34 8.7 1.0-11.0 (%) Final Eosinophils 11/21/2023 17:30:34 0.5 0.0-6.0 (%) Final Basos 11/21/2023 17:30:34 0.3 0.0-2.0 (%) Final Absolute Segs 11/21/2023 17:30:34 1.92 1.80-7.70 (K/uL) Final Lymphs, absolute 11/21/2023 17:30:34 1.41 1.00-4.80 (K/ul) Final Monos, Abs 11/21/2023 17:30:34 0.32 0.00-1.10 (K/uL) Final Eos, Abs 11/21/2023 17:30:34 0.02 0.00-0.70 (K/uL) Final Basos, Abs 11/21/2023 17:30:34 0.01 0.00-0.20 (K/uL) Final Performing Location [facility] - [address] [facility] [address]
--- OUTSIDE RECORDS SUMMARY | 2024-03-06 12:36 | External Medical Summary ---
Author Name Unknown Address Unknown Organization K01:[facility] - [address] [id number] Laboratory Report Ordering Provider Test Date Status LÁZAROFLIP 11/21/2023 17:30:34 Final Observation Date Value Abnormality Reference (Units ) Status ABO 11/21/2023 17:30:34 A Final RH 11/21/2023 17:30:34 Positive Final RED BLOOD CELL ANTIBODY SCREEN 11/21/2023 17:30:34 Negative Final SPECIMEN EXPIRATION DATE 11/21/2023 17:30:34 11/24/2023 23:59 Final Performing Location [facility] - [address] [id number]
--- OUTSIDE RECORDS SUMMARY | 2024-03-06 12:36 | External Medical Summary ---
Author Name Unknown Address Unknown Organization [id number]:[facility] - [address] [place] [id number] Laboratory Report Ordering Provider Test Date Status FLIP SESAY 11/21/2023 17:30:34 Final Observation Date Value Abnormality Reference (Units ) Status Lactic Acid, Whole Blood 11/21/2023 17:30:34 1.7 0.4-2.0 (mmol/L) Final Performing Location [facility] - [address] [place] [phone]
--- OUTSIDE RECORDS SUMMARY | 2024-03-06 12:36 | External Medical Summary | Summary of Care ---
Author Name Unknown Organization [facility] Address [address] [facility] [place] [address] Phone [phone] Care Team Providers Care Ski Molder Name Role Phone Keagan Sanchez MD Primary Care Provider [phone] Reason for Referral * Precert (Within 10 days (routine)) - Pending Review Specialty Diagnoses / Procedures Referred By Lynn helton Referred To Contact Radiology Diagnoses Postlaminectomy syndrome, lumbar Acute left-sided low back pain with left-sided sciatica Procedures MRI L SPINE WO CONTRAST Jamarcus Carreno PA-C [address] [place] [address] Referral ID Status Reason Start Date Expiration Date V isits Requested Visits Authorized [id number] Pending Review 11/20/2023 999 999 Reason for Visit * Reason Comments Acute Patient is here toda y with about lower back pain.Pain radiates into her left groin and down her leg into her foot. Patient rates pain 10/31. Encounter Details Date Type Department Care Team ([facility] Contact Info) Description 11/20/2023 10:20 AM EDT Office Visit [address] [phone] Jamarcus Carreno PA-C [address] [place] [address] Acute left-sided low back pain with left-sided sciatica*; Acute thoracic back pain, unspecified back pain laterality; Postlaminectomy syndrome, lumbar Allergies Active Allergy Reactions Criticality Noted Date Comments Adhesive Tape 03/31/2023 Other Reaction(s): Tape- redness, paper tape/coban "ok", [id number] TAPE OK OR COBAN Clarithromycin High 03/31/2023 Other Reaction(s): Rash, diarrhea, RASH,DIARRHEA Duloxetine Hcl Flushing,Nausea/vomi tin g High 10/20/2019 Erythromycin Base Rash 03/14/2004 Orlistat Low 03/31/2023 Other Reaction(s): GI UPSET Penicillins Rash 03/14/2004 Prednisone Other (Please comment) High 10/10/2023 pancreatitis Sulfa Antibiotics Rash 03/14/2004 documented as of this encounter (statuses as of 11/20/2023) Medications Medication Sig Dispensed Refills Start Date [...] Oral Tablet (Zetia)Indications :Coronary artery disease involving [place] coronary artery of [place] heart with unstable angina pectoris (HCC) TAKE ONE TABLET BY MOUTH EVERY MORNING 90 Tablet 3 11/07/2023 11/06/2024 Active traMADol HCl 50 MG Oral Tablet (Ultram)Indication s:Postlaminectomy syndrome, lumbar Take 2 Tablets by mouth every 6 hours as needed for Pain, Moderate. 90 Tablet 11/14/2023 Active Hospital, Clinic, or Other Facility Administered Medication Ordered Dose Route Frequency Start Date End Date Status keTORolac (Toradol) 60 MG/2ML IM inj 60 mgIndications:Acute left-sided low back pain with left-sided sciatica,Acute thoracic back pain, unspecified back pain laterality,Postlaminectomy syndrome, lumbar 60 mg IM ONCE 11/20/2023 11/20/2023 Ended documented as of this encounter (statuses as of 11/20/2023) Active Problems Problem Noted Date Diagnosed Date [...] hypothyroidism 04/12/2021 Coronary artery disease invo lving [place] coronary artery of [place] heart without angina pectoris 09/27/2020 S/P angioplasty [...] as of this encounter (statuses as of 11/20/2023) Resolved Problems Problem Noted Date Diagnosed Date [...] as of this encounter (statuses as of 11/20/2023) Immunizations Name Administration Dates Next Due COVID-19 [...] Sign Reading Time Taken Comments Blood Pressure 110/64 11/20/2023 10:23 AM EDT Pulse 66 11/20/2023 10:23 AM EDT Temperature 37 C (98.6 F) 11/20/2023 10:23 AM EDT Respiratory Rate 20 11/20/2023 10:23 AM EDT Oxygen Saturation 96% 11/20/2023 10:23 AM EDT Inhaled Oxygen Concentration - - Weight 81 kg (178 lb 9.6 oz) 11/20/2023 10:23 AM EDT Height - - Body Mass Index 30.66 11/19/2023 9:59 AM EDT documented in this [...] as of this encounter Progress Notes * Jamarcus Carreno PA-C - 11/20/2023 10:34 AM EDT Images from the original note were not included. History of Present Illness Shalini Pace is a 63 year old female that presents for Acute (Patient is here today with about lower back pain./Pain radiates into her left groin and down her leg into her foot. /Patient rates pain 10/31. ) Acute on chronic low back pain L>R, radiating down left leg. +left inguinal pain, left thigh pain. Burning sensation behind knee. Sharp pain down into left foot at times. Pain is similar as in the past, but more intense. Feels urine is "slow" attributed to neurogenic bladder, no acute change. Bowels moving slower, constipation alleviated with Miralax. Last L-spine MRI 2021. On gabapentin, Baclofen, tramadol chronically. Physical Exam Vitals: 11/20/23 1023 Temp: 37 C (98.6 F) Pulse: 66 Resp: 20 SpO2: 96% BP: 110/64 Wt Readings from Last 3 Encounters: 11/20/23 81 kg (178 lb 9.6 oz) 11/19/23 80.4 kg (177 lb 3.2 oz) 11/17/23 79.4 kg (175 lb) Physical Exam Vitals and nursing note reviewed. Constitutional: Comments: Ambulates with use of cane. HENT: Head: Normocephalic and atraumatic. Pulmonary: Effort: Pulmonary effort is normal. Musculoskeletal: General: No swelling. Thoracic back: Decreased range of motion. Lumbar back: Tenderness present. Decreased range of motion. Positive left straight leg raise test. Negative right straight leg raise test. Comments: Diffuse lower thoracic and lumbar tenderness L>R, diminished light touch diffusely LLE, strength 4/5. Skin: General: Skin is warm and dry. Neurological: Mental Status: She is alert and oriented to person, place, and time. Assessment and Plan Acute left-sided low back pain with left-sided sciatica (Primary) - XR L SPINE AP AND LATERAL - MRI L SPINE WO CONTRAST; Future; Expected date: 11/20/2023 - keTORolac (Toradol) 60 MG/2ML IM inj 60 mg Acute thoracic back pain, unspecified back pain laterality - XR T SPINE AP AND LATERAL - keTORolac (Toradol) 60 MG/2ML IM inj 60 mg Postlaminectomy syndrome, lumbar - XR L SPINE AP AND LATERAL - MRI L SPINE WO CONTRAST; Future; Expected date: 11/20/2023 - keTORolac (Toradol) 60 MG/2ML IM inj 60 mg Wrap-Up Follow Up: Return for Xray today. | For: Xray today | Check-out note: Schedule MRI once insurance approves. 12/22/2023 as scheduled. Time: I spent a total of 20-29 minutes (exact time 25 mins) on the date of service in preparation, delivery, and documentation of the care provided to Shalini Pace excluding any time spent in the performance of separately billed services. documented in this encounter Nursing Notes * Pretty Bucio LPN - 11/20/2023 11:10 AM EDT Pre-Administration Time Out Procedure Performed: Yes Patient Identified (Ask Name/Date of ): Yes Does the patient have a fever greater than 101 degrees today? No Patient allergic to latex? No Has the patient ever fainted after receiving an injection? No VFC Stock: No Injection(s) verified: Yes, Injection Name: Toradol 60 mg Verified Side and Site: Yes Verified Shot(s) with Parent(s)/Patient: Yes * Pretty Bucio LPN - 11/20/2023 10:25 AM EDT The patient has been properly identified by confirmation of name and date of . Chief Complaint Patient presents with Acute Patient is here today with about lower back pain. Pain radiates into her left groin and down her leg into her foot. Patient rates pain 8/10. documented in this encounter Plan of Treatment Upcoming Encounters Date Type Department Care Team ([facility] st Contact Info) Description 12/09/2023 10:00 AM EDT Home Visit ising at [place], [facility] [address] [place] [address] Oriana Isaacs PA-C [address] [place] [address] 12/22/2023 1:40 PM EDT Office Visit Family [address] [phone] Keagan Sanchez MD [address] [place] [address] 12/29/2023 12:30 PM EDT Home Visit [facility] [address] [place] [address] Nika Guevara RN [address] [place] [address] 06/07/2024 11:00 AM EDT Office Visit Cardiology [address] [place] [phone] Angela Littlejohn CRNP [address] [place] [address] 08/09/2024 10:00 AM EDT Office Visit Orthopaedics Andrez Alejandre [address] [place] [address] Sami Angelo [address] [place] [address] 10/07/2024 2:40 PM EDT Office Visit Dermatology [facility] [address] [place] [phone] Alden Ann PA-C [address] [place] [address] Pending Results Name Type Priority Associated Diagnoses Date /Time XR T SPINE AP AND LATERAL Medical Imaging Routine Acute thoracic back pain, unspecified back pain laterality 11/20/2023 11:24 AM EDT XR L SPINE AP AND LATERAL Medical Imaging Routine Postlaminectomy syndrome, lumbar Acute left-sided low back pain with left-sided sciatica 11/20/2023 11:24 AM EDT Scheduled Orders Name Type Priority Associated Diagnoses Orde r Schedule MRI L SPINE WO CONTRAST Medical Imaging Routine Postlaminectomy syndrome, lumbar Acute left-sided low back pain with left-sided sciatica Expected: 11/20/2023, Expires: 12/20/2024 Scheduled Procedures Name Priority Associated Diagnoses Date/Ti [...] D LEVEL ONCE IN A LIFETIME-USE SMARTSET# 76605 Completed 01/28/2022, 02/21/2015, 12/30/2011 RETIRED - COLONOSCOPY-EVERY [...] this encounter Medical Devices Implanted Type Area Crew Trainer Device Identifier Shelf Expiration Date Model / Serial / Lot Screw Jami Lacie 3 Ti Set - [id number] Implanted:Qty: 6 on 03/10/2012 [place] [facility] [place]ilateral: Spine Lumbar LEVON : SPINE [id number] / / Screw Lacie Pa Ti 6.5x50mm - [id number] Implanted:Qty: 4 on 03/10/2012 at [place] [facility] [place] Bilateral: Spine Lumbar LEVON : SPINE [id number] / / [place] Xia3 7.0 X 40mm Screws Implanted:Qty: 2 on 03/10/2012 at [place] [facility] [place] Bilateral: Spine Lumbar [id number] / / Shaun Lacie 3 Ti 6x70mm - [id number] Implanted:Qty: 1 on 03/10/2012 at [place] [facility] [place] N/A: Spine Lumbar LEVON : SPINE [id number] / / Shaun Lacie 3 Ti Max 6x80mm - [id number] Implanted:Qty: 1 on 03/10/2012 at [place] [facility] [place] N/A: Spine Lumbar LEVON : SPINE [id number] / / 9 X 25 X 4 - 8 Avs Wedge Nose Cage Implanted:Qty: 1 on 03/10/2012 at [place] [facility] [place] N/A: Spine Lumbar [id number] / / Stent Synergy Xd Mr 2.90z01mo - [id number] Implanted:Qty: 1 on 09/20/2020 at [facility] [place] Lettuce [id number] 04/18/2022 [id number] 220 / / [id number] Stent Synergy Xd Mr 2.06w44rx - [id number] Implanted:Qty: 1 on 09/20/2020 at [facility] [place] Lettuce [id number] 04/25/2022 [id number] 220 / / [id number] Screw Locking 4.5mm 15mm - [id number] Implanted:Qty: 1 on 07/11/2022 by Sami Angelo DO at [place] [facility] [place] Right: Shoulder [employer] 11/22/2025 108-4515 / / [id number] Bseplate Jasmeet Cmntlss W Scrw - [id number] Implanted:Qty: 1 on 07/11/2022 by Sami Angelo DO at [place] [facility] [place] Right: Shoulder [employer] 03/24/2027 105-0029 / / [id number] Glenosphere Rev Thee W Scrw - [id number] Implanted:Qty: 1 on 07/11/2022 by Sami Angelo DO at [place] [facility] [place] Right: Shoulder [employer] 04/24/2027 105-3610 / / [id number] Screw Locking 4.5mm 15mm - [id number] Implanted:Qty: 1 on 07/11/2022 by Sami Angelo DO at [place] [facility] Right: Shoulder [employer] 03/24/2027 108-4515 / / [id number] Screw Locking 4.5mm 20mm - [id number] Implanted:Qty: 1 on 07/11/2022 by Sami Angelo DO at [place] [facility] Right: Shoulder [employer] 03/24/2027 108-4520 / / [id number] Humelock Ii Stem Ta6v Size 12 Cementless Implanted:Qty: 1 on 07/11/2022 by Sami Angelo DO at [place] [facility] Right: Shoulder [employer] 10/22/2026 311-0212 / / [id number] Cortical Screw Ta6v, 5mm, L. 24mm Implanted:Qty: 1 on 07/11/2022 by Sami Angelo DO at [place] [facility] Right: Shoulder [employer] 09/22/2023 107-4524 / / [id number] Humeral Cup 135/145 Degree, Standard, 36/+6 Implanted:Qty: 1 on 07/11/2022 by Sami Angelo DO at [place] [facility] Right: Shoulder 02/21/2025 313-0706 / / [id number] Screw Locking 4.5mm 20mm - [id number] Implanted:Qty: 1 on 07/11/2022 by Sami Angelo DO at [place] [facility] Right: Shoulder [employer] 03/24/2027 108-4520 / / [id number] documented as of this encounter Visit Diagnoses Diagnosis Acute left-sided low back pain with left-sided sciatica- Primary Acute thoracic back pain, unspecified back pain laterality Postlaminectomy syndrome, lumbar Postlaminectomy syndrome, lumbar region documented in this encounter Administered Medications Inactive Administered Medications - up to 3 most recent administrations Medication Order MAR Action Action Date Dose Rate Site keTORolac (Toradol) 60 MG/2ML IM inj 60 mg 60 mg, Intramuscular, ONCE, On Lashaun 11/20/23 at 1130, For 1 dose Given 11/20/2023 11:07 AM EDT 60 mg Dorsogluteal Left documented in this encounter Advance Directives * [...] Agents on File Name Relationship Healthcare Agent [facility] p Communication Donny Pace Spouse Health Care Agent Care Teams Ski Molder Relationship Specialty Start Date End Date Keagan Sanchez MD [address] [place] [address] PCP - General Family Medicine 7/16/24 documented as of this encounter
--- OUTSIDE RECORDS SUMMARY | 2024-03-06 12:36 | External Medical Summary | Summary of Care ---
Author Name Unknown Organization [facility] Address [address] [facility] [place] [address] Phone [phone] Care Team Providers Care Utilization Coordinator Name Role Phone Keagan Sanchez MD Primary Care Provider [phone] Reason for Visit * Reason Onset Date Comments [facility]: Maintenance 11/20/2023 Encounter Details Date Type Department Care Team (Late st Contact Info) Description 11/20/2023 9:45 AM EDT Scheduled Telephone [facility] [place] [address] [place] [address] Coordinator, [facility] [address] [place] [address] Allergies Active Allergy Reactions Criticality Noted Date Comments Adhesive Tape 03/31/2023 Other Reaction(s): Tape- redness, paper tape/coban "ok", [id number] TAPE OK OR COBAN Clarithromycin High 03/31/2023 [...] Oral Tablet (Zetia)Indications :Coronary artery disease involving [place] coronary artery of [place] heart with unstable angina pectoris (HCC) TAKE [...] hypothyroidism 04/12/2021 Coronary artery disease invo lving [place] coronary artery of [place] heart without angina pectoris 09/27/2020 S/P angioplasty [...] Telephone Encounter - Berta Gurrola RN - 11/20/2023 11:46 AM EDT Pt is scheduled for a FCC today. Noted that the pt had an appt with her PCP this morning and x-rays ordered. Will call the pt in a few hours. Berta RAPP, RN [facility] Intake Nurse Navigator Triage documented in this encounter Plan of Treatment Upcoming Encounters Date Type Department Care Team ([facility] st Contact Info) Description 12/09/2023 10:00 AM EDT Home Visit [facility] at [place], [place] [address] [place] [address] Oriana Isaacs PA-C [address] [place] [address] 12/22/2023 1:40 PM EDT Office Visit [address] [phone] Keagan Sanchez MD [address] [place] [address] 12/29/2023 12:30 PM EDT Home Visit [facility] [place] [address] [place] [address] Nika Guevara RN [address] [place] [address] 06/07/2024 11:00 AM EDT Office Visit Cardiology [facility] [address] [facility] [address] [place] [address] Angela Littlejohn CRNP [address] [place] [address] 08/09/2024 10:00 AM EDT [place] [place] [address] [place] [phone] Sami Angelo DO [address] [place] [address] 10/07/2024 2:40 PM EDT Office Visit Dermatology [facility] [address] [place] [phone] Alden Ann PA-C [address] [place] [address] Scheduled Procedures Name Priority Associated Diagnoses Date/Ti [...] D LEVEL ONCE IN A LIFETIME-USE SMARTSET# 62437 Completed 01/28/2022, 02/21/2015, 12/30/2011 RETIRED - COLONOSCOPY-EVERY [...] this encounter Medical Devices Implanted Type Area Field Service Rep Device Identifier Shelf Expiration Date Model / Serial / Lot Screw Jami Lacie 3 Ti Set - [id number] Implanted:Qty: 6 on 03/10/2012 [place] [facility] [place] Bilateral: Spine Lumbar LEVON : SPINE [id number] / / Screw Lacie Pa Ti 6.5x50mm - [id number] Implanted:Qty: 4 on 03/10/2012 at [place] [facility] [place] Bilateral: Spine Lumbar LEVON : SPINE [id number] / / [place] Xia3 7.0 X 40mm Screws Implanted:Qty: 2 on 03/10/2012 at [place] [facility] [place] Bilateral: Spine Lumbar [id number] / / Shaun Lacie 3 Ti 6x70mm - [id number] Implanted:Qty: 1 on 03/10/2012 at [place] [facility] [place] N/A: Spine Lumbar LEVON : SPINE [id number] / / Shaun Lacie 3 Ti Max 6x80mm - [id number] Implanted:Qty: 1 on 03/10/2012 at [place] [facility] [place] N/A: Spine Lumbar LEVON : SPINE [id number] / / 9 X 25 X 4 - 8 Avs Wedge Nose Cage Implanted:Qty: 1 on 03/10/2012 at [place] [facility] [place] N/A: Spine Lumbar [id number] / / Stent Synergy Xd Mr 2.35m23bi - [id number] Implanted:Qty: 1 on 09/20/2020 at [facility] [place] [employer] [id number] 04/18/2022 [id number] 220 / / [id number] Stent Synergy Xd Mr 2.20r51mt - [id number] Implanted:Qty: 1 on 09/20/2020 at [facility] [place] [employer] [id number] 04/25/2022 [id number] 220 / / [id number] Screw Locking 4.5mm 15mm - [id number] Implanted:Qty: 1 on 07/11/2022 by Sami Angelo DO at [place] [facility] [place] Right: Shoulder [employer] 11/22/2025 108-4515 / / [id number] Bseplate Jasmeet Cmntlss W Scrw - [id number] Implanted:Qty: 1 on 07/11/2022 by Sami Angelo DO at [place] [facility] [place] Right: Shoulder [employer] 03/24/2027 105-0029 / / [id number] Glenosphere Rev Thee W Scrw - [id number] Implanted:Qty: 1 on 07/11/2022 by Sami Angelo DO at [place] [facility] [place] Right: Shoulder [employer] 04/24/2027 105-3610 / / [id number] Screw Locking 4.5mm 15mm - [id number] Implanted:Qty: 1 on 07/11/2022 by Sami Angelo DO at [place] [facility] [place] Right: Shoulder [employer] 03/24/2027 108-4515 / / [id number] Screw Locking 4.5mm 20mm - [id number] Implanted:Qty: 1 on 07/11/2022 by Sami Angelo DO at [place] [facility] Right: Shoulder [employer] 03/24/2027 108-4520 / / [id number] Humelock Ii Stem Ta6v Size 12 Cementless Implanted:Qty: 1 on 07/11/2022 by Sami Angelo DO at [place] [facility] [place] Right: Shoulder [employer] 10/22/2026 311-0212 / / [id number] Cortical Screw Ta6v, 5mm, L. 24mm Implanted:Qty: 1 on 07/11/2022 by Sami Angelo DO at [place] [facility] [place] Right: Shoulder [employer] 09/22/2023 107-4524 / / [id number] Humeral Cup 135/145 Degree, Standard, 36/+6 Implanted:Qty: 1 on 07/11/2022 by Sami Angelo DO at [place] [facility] [place] Right: Shoulder 02/21/2025 313-0706 / / [id number] Screw Locking 4.5mm 20mm - [id number] Implanted:Qty: 1 on 07/11/2022 by Sami Angelo DO at [place] [facility] Right: Shoulder FX SOLUTIONS [...] Agents on File Name Relationship Healthcare Agent [facility] Communication Donny Pace Spouse Health Care Agent Care Teams Utilization Coordinator Relationship Specialty Start Date End Date Keagan Sanchez MD [address] [place] [address] PCP - General Family Medicine 10/07/23 documented as of this encounter
--- OUTSIDE RECORDS SUMMARY | 2024-03-06 12:36 | External Medical Summary | Summary of Care ---
Author Name Unknown Organization [facility] Address [address] [facility] [place] [address] Phone [phone] Care Team Providers Care Senior Qa Engineer Name Role Phone Keagan Sanchez MD Primary Care Provider [phone] Reason for Visit * Reason Onset Date Comments [facility]: Maintenance 11/20/2023 Encounter Details Date Type Department Care Team (Late st Contact Info) Description 11/20/2023 9:45 AM EDT Scheduled Telephone [facility], [place] [address] [place] [address] Coordinator, [facility] [address] [place] [address] Allergies Active Allergy Reactions Criticality Noted Date Comments Adhesive Tape 03/31/2023 Other Reaction(s): Tape- redness, paper tape/coban "ok", [id number] TAPE OK OR COBAN Clarithromycin High 03/31/2023 [...] Oral Tablet (Zetia)Indications :Coronary artery disease involving winnebago coronary artery of winnebago heart with unstable angina pectoris (HCC) TAKE [...] hypothyroidism 04/12/2021 Coronary artery disease invo lving winnebago coronary artery of winnebago heart without angina pectoris 09/27/2020 S/P angioplasty [...] Encounter - Berta Gurrola RN - 11/20/2023 2:27 PM EDT [facility] Telephonic Nurse Follow-Up Call [facility] Subprogram: Short-Term Management (less than 3 months) Follow Up Call Type: 48 hour follow up Acute issue requiring follow-up call: Other: f/u Back pain 10 out of 10 Objective: 11/20/2023 10:23 AM 11/19/2023 9:59 AM 11/17/2023 2:15 PM 10/31/2023 5:00 PM 10/31/2023 4:45 PM VITALS ACROSS ENCOUNTERS BP 110/64 112/62 110/62 122/67 119/70 Pulse 66 61 68 62 59 Weight 81 kg 80.4 kg 79.4 kg BMI 30.4 BMI 30.66 kg/m2 30.42 kg/m2 30.04 kg/m2 Remote Patient Monitoring: NONE Oxygen Needs: NO supplemental oxygen needs identified DME Needs: Walker or other assistive device (specify: cane) Medications: New medication(s) added: the pt received one dose of IM Toradol today at her PCP appt Subjective: Condition Status: No change in symptoms Current Concerns: Spoke with pt who did have a PCP appt today and x-rays. [facility] She states that she is "still in a lot of discomfort". She rates her pain 8/10 at this time, she did also take Tramadol since she got home. States it "takes the edge off". She states that sheneeds an MRI, to be done at [facility] and she is waiting to hear about it being scheduled. The pain is in her lumbar spine and radiates to her left leg and foot, left groin. She gets sharp shooting pain which is also stabbing into her vagina. She has numbness and tingling down LLE. She walks with a limpdue to pain and is using her assistive device. She has used heat which did not seem to help. She is wearing her back brace and has turned up her neuro stimulator. Disposition: Follow up call scheduled for tomorrow with [employer] Blacksmith Apprentice Future Visits Scheduled: Future Appointments-next 60 days Date/Time Provider Specialty Dept Phone 12/09/2023 10:00 AM Oriana Isaacs PA-C [facility] [phone] 12/22/2023 1:40 PM (Arrive by 1:25 PM) Keagan Sanchez MD Family Medicine [phone] 12/29/2023 12:30 PM Nika Guevara RN [facility] [phone] 06/07/2024 11:00 AM (Arrive by 10:45 AM) Angela Littlejohn CRNP Cardiology [phone] 08/09/2024 10:00 AM Sami Angelo DO Orthopedics [phone] 10/07/2024 2:40 PM (Arrive by 2:25 PM) Alden Ann PA-C Dermatology [phone] Berta Gurrola RN * Telephone Encounter - Berta Gurrola RN - 11/20/2023 11:46 AM EDT Pt is scheduled for a FCC today. Noted that the pt had an appt with her PCP this morning and x-rays ordered. Will call the pt in a few hours. Berta RAPP, RN [facility] Intake Nurse Navigator Triage documented in this encounter Plan of Treatment Upcoming Encounters Date Type Department Care Team (Late st Contact Info) Description 12/09/2023 10:00 AM EDT Home Visit [facility] [place], [facility] [address] [place] [address] Oriana Isaacs PA-C [address] [place] [address] 12/22/2023 1:40 PM EDT Office Visit Family [facility] [address] [place] [phone] Keagan Sanchez MD [address] [place] [address] 12/29/2023 12:30 PM EDT Home Visit [facility] [place], [facility] [address] [place] [address] Nika Guevara RN [address] [place] [address] 06/07/2024 11:00 AM EDT Office Visit Cardiology [address] [place] [phone] Angela Littlejohn CRNP [address] [place] [address] 08/09/2024 10:00 AM EDT Office Visit Orthopaedics Andrez Alejandre [address] [place] [address] [place] [phone] Sami Angelo DO [address] [place] [address] 10/07/2024 2:40 PM EDT Office Visit Dermatology [facility] [address] [place] [address] Alden Ann PA-C [address] [place] [address] [phone] Scheduled Procedures Name Priority Associated Diagnoses Date/Ti [...] 07/17/2023, 11/2022, 09/10/2022, Additional history exists GFR 10/30/2024 10/31/2023, 05/2023, 08/23/2023, Additional history exists DTap/Tdap Vaccines (3 - Td or Tdap) 10/10/2026 10/10/2016, 10/26/2005 Colonoscopy 04/18/2027 04/18/2022, 03/25, 08/10/2013, Additional history exists Colorectal Cancer Screening 04/18/2027 VITAMIN D LEVEL ONCE IN A LIFETIME-USE SMARTSET# 14770 Completed 01/28/2022, 02/21/2015, 12/30/2011 RETIRED - COLONOSCOPY-EVERY [...] this encounter Medical Devices Implanted Type Area Marble Machine Tender Device Identifier Shelf Expiration Date Model / Serial / Lot Screw Jami Lacie 3 Ti Set - [id number] Implanted:Qty: 6 on 03/10/2012 at OR [facility] Bilateral: Spine Lumbar LEVON : SPINE [id number] / / Screw Lacie Pa Ti 6.5x50mm - [id number] Implanted:Qty: 4 on 03/10/2012 at OR [facility] Bilateral: Spine Lumbar LEVON : SPINE [id number] / / Levon Xia3 7.0 X 40mm Screws Implanted:Qty: 2 on 03/10/2012 at OR [facility] Bilateral: Spine Lumbar [id number] / / Shaun Lacie 3 Ti 6x70mm - [id number] Implanted:Qty: 1 on 03/10/2012 at OR [facility] N/A: Spine Lumbar LEVON : SPINE [id number] / / Shaun Lacie 3 Ti Max 6x80mm - [id number] Implanted:Qty: 1 on 03/10/2012 at OR [facility] N/A: Spine Lumbar LEVON : SPINE [id number] / / 9 X 25 X 4 - 8 Avs Wedge Nose Cage Implanted:Qty: 1 on 03/10/2012 at OR [facility] N/A: Spine Lumbar [id number] / / Stent Synergy Xd Mr 2.04m12qk - [id number] Implanted:Qty: 1 on 09/20/2020 at [facility] [employer] [id number] 04/18/2022 [id number] 220 / / [id number] Stent Synergy Xd Mr 2.84m17kr - [id number] Implanted:Qty: 1 on 09/20/2020 at [facility] [employer] [id number] 04/25/2022 [id number] 220 / / [id number] Screw Locking 4.5mm 15mm - [id number] Implanted:Qty: 1 on 07/11/2022 by Sami Angelo DO at OR [facility] Right: Shoulder [employer] 11/22/2025 108-4515 / / [id number] Bseplate Jasmeet Cmntlss W Scrw - [id number] Implanted:Qty: 1 on 07/11/2022 by Sami Angelo DO at OR [facility] Right: Shoulder [employer] 03/24/2027 105-0029 / / [id number] Glenosphere Rev Thee W Scrw - [id number] Implanted:Qty: 1 on 07/11/2022 by Sami Angelo DO at OR [facility] Right: Shoulder [employer] 04/24/2027 105-3610 / / [id number] Screw Locking 4.5mm 15mm - [id number] Implanted:Qty: 1 on 07/11/2022 by Sami Angelo DO at OR [facility] Right: Shoulder [employer] 03/24/2027 108-4515 / / [id number] Screw Locking 4.5mm 20mm - [id number] Implanted:Qty: 1 on 07/11/2022 by Sami Angelo [...] / [id number] Screw Locking 4.5mm 20mm - [id number] Implanted:Qty: 1 on 07/11/2022 by Sami Angelo DO at OR [facility] Right: Shoulder [employer] 03/24/2027 108-9520 / / [id number] documented as of this [...] Pace Spouse Health Care Agent Care Teams Senior Qa Engineer Relationship Specialty Start Date End Date Keagan Sanchez MD [address] [place] [id number] PCP - General Family Medicine 10/07/23 documented as of this encounter
--- OUTSIDE RECORDS SUMMARY | 2024-03-06 12:36 | External Medical Summary | Summary of Care ---
Author Name Unknown Organization [facility] Address [address] [facility] [place] [address] Phone [phone] Care Team Providers Care Vice President Education Name Role Phone Keagan Sanchez MD Primary Care Provider [phone] Reason for Visit * Reason Onset Date Comments [facility]: Maintenance 11/21/2023 Encounter Details Date Type Department Care Team (Late st Contact Info) Description 11/21/2023 11:15 AM EDT Scheduled Telephone [facility], [place] [address] [place] [address] Coordinator, [facility] [address] [place] [address] Allergies Active Allergy Reactions Criticality Noted Date Comments Adhesive Tape 03/31/2023 Other Reaction(s): Tape- redness, paper tape/coban "ok", [id number] TAPE OK OR COBAN Clarithromycin High 03/31/2023 [...] Oral Tablet (Zetia)Indications :Coronary artery disease involving kashia coronary artery of kashia heart with unstable angina pectoris (HCC) TAKE [...] hypothyroidism 04/12/2021 Coronary artery disease invo lving kashia coronary artery of kashia heart without angina pectoris 09/27/2020 S/P angioplasty [...] [facility] Telephonic Nurse Follow-Up Call [facility] Subprogram: Short-Term Management (less than 3 [...] no answer, left message,to return call to [facility] Disposition: Weekend call scheduled, may cancel if patient returns call today Future Visits Scheduled: Future Appointments-next 60 days Date/Time Provider Specialty Dept Phone 11/21/2023 11:15 AM Coordinator, [facility] [phone] 12/03/2023 8:30 AM (Arrive by 8:00 AM) 1 [facility] Radiology [phone] 12/09/2023 10:00 AM Oriana Isaacs PA-C [facility] [phone] 12/22/2023 1:40 PM (Arrive by 1:25 PM) Keagan Sanchez MD Family Medicine [phone] 12/29/2023 12:30 PM Nika Guevara RN [facility] [phone] 06/07/2024 11:00 AM (Arrive by 10:45 AM) Angela Littlejohn CRNP Cardiology [phone] 08/09/2024 10:00 AM Sami Angelo, DO Orthopedics [phone] 10/07/2024 2:40 PM (Arrive by 2:25 PM) Alden Ann PA-C Dermatology [phone] Diana Valentin RN [facility] Registered Nurse Navigator Triage documented in this encounter Plan of Treatment Upcoming Encounters Date Type Department Care Team (Late st Contact Info) Description 11/22/2023 12:00 PM EDT Scheduled Telephone [facility] [place], [facility] [address] [place] [address] Region, Nurse [facility] [address] [facility] [place] [address] 12/03/2023 8:30 AM EDT Appointment Radiology, [phone] [place] [address] 12/09/2023 10:00 AM EDT Home Visit [facility], [facility] [address] [place] [address] Oriana Isaacs PA-C [address] [place] [address] 12/22/2023 1:40 PM EDT Office Visit Family [facility] [address] [place] [phone] Keagan Sanchez MD [address] [place] [address] 12/29/2023 12:30 PM EDT Home Visit [facility], [facility] [address] [place] [address] Nika Guevara RN [address] [place] [address] 06/07/2024 11:00 AM EDT Office Visit Cardiology [facility] [address] [facility] [address] [place] [phone] Angela Littlejohn CRNP [address] [place] [address] 08/09/2024 10:00 AM EDT Office Visit Orthopaedics [facility] [address] [place] [address] Sami Angelo DO [address] [place] [address] 10/07/2024 2:40 PM EDT Office Visit Dermatology [facility] [address] [place] [phone] Alden Ann PA-C [address] [place] [address] Scheduled Procedures Name Priority Associated Diagnoses Date/Ti [...] D LEVEL ONCE IN A LIFETIME-USE SMARTSET# 53325 Completed 01/28/2022, 02/21/2015, 12/30/2011 RETIRED - COLONOSCOPY-EVERY [...] this encounter Medical Devices Implanted Type Area Ncr Operator Device Identifier Shelf Expiration Date Model / Serial / Lot Medtronic-05/27/2023 Implanted: (Quantity not on file) Neurostimulator [employer] : NEUROLOGIC PAIN 05/26/2049 [id number] / / [id number] Screw Jami Lacie 3 Ti Set - [id number] Implanted:Qt y: 6 on 03/10/2012 at [place] [facility] Bilateral : Spine Lumbar LEVON : SPINE [id number] / / Screw Lacie Pa Ti 6.5x50mm - [id number] Implanted:Qt y: 4 on 03/10/2012 at OR [facility] Bilateral : Spine Lumbar LEVON : SPINE [id number] / / Levon Xia3 7.0 X 40mm Screws Implanted:Qt y: 2 on 03/10/2012 at OR [facility] Bilateral : Spine Lumbar [id number] / / Shaun Lacie 3 Ti 6x70mm - [id number] Implanted:Qt y: 1 on 03/10/2012 at OR [facility] N/A: Spine Lumbar LEVON : SPINE [id number] / / Shaun Lacie 3 Ti Max 6x80mm - [id number] Implanted:Qt y: 1 on 03/10/2012 at OR [facility] N/A: Spine Lumbar LEVON : SPINE [id number] / / 9 X 25 X 4 - 8 Avs Wedge Nose Cage Implanted:Qt y: 1 on 03/10/2012 at OR [facility] N/A: Spine Lumbar [id number] / / Stent Synergy Xd Mr 2.13m93pv - [id number] Implanted:Qt y: 1 on 09/20/2020 at [facility] [employer] [id number] 04/18/2022 [id number] / / [id number] Stent Synergy Xd Mr 2.03n53lo - [id number] Implanted:Qt y: 1 on 09/20/2020 at [facility] [employer] [id number] 04/25/2022 [id number] / / [id number] Screw Locking 4.5mm 15mm - [id number] Implanted:Qt y: 1 on 07/11/2022 by Sami Angelo DO at OR [facility] Right: Shoulder [employer] 11/22/2025 108-4515 / / [id number] Bseplate Jasmeet Cmntlss W Scrw - [id number] Implanted:Qt y: 1 on 07/11/2022 by Sami Angelo DO at OR [facility] Right: Shoulder [employer] 03/24/2027 105-0029 / / [id number] Glenosphere Rev Thee W Scrw - [id number] Implanted:Qt y: 1 on 07/11/2022 by Sami Angelo DO at OR [facility] Right: Shoulder [employer] 04/24/2027 105-3610 / / [id number] Screw Locking 4.5mm 15mm - [id number] Implanted:Qt y: 1 on 07/11/2022 by Sami Angelo DO at OR [facility] Right: Shoulder [employer] 03/24/2027 108-4515 / / [id number] Screw Locking 4.5mm 20mm - [id number] Implanted:Qt y: 1 on 07/11/2022 by Sami Angelo DO at OR [facility] Right: Shoulder [employer] 03/24/2027 108-4520 / / [id number] Humelock Ii Stem Ta6v Size 12 Cementless Implanted:Qt y: 1 on 07/11/2022 by Sami Angelo DO at OR [facility] Right: Shoulder [employer] 10/22/2026 [id number] / / [id number] Cortical Screw Ta6v, 5mm, L. 24mm Implanted:Qt y: 1 on 07/11/2022 by Sami Angelo DO at OR [facility] Right: Shoulder [employer] 09/22/2023 107-4524 / / [id number] Humeral Cup 135/145 Degree, Standard, 36/+6 Implanted:Qt y: 1 on 07/11/2022 by Sami Angelo, DO at OR C Right: Shoulder 02/21/2025 313-0706 / / [id number] Screw Locking 4.5mm 20mm - [id number] Implanted:Qt y: 1 on 07/11/2022 by Sami [...] Relationship Healthcare Agent [facility] Communication Donny Wensel Spouse Health Care Agent Care Teams Vice President Education Relationship Specialty Start Date End Date Keagan Sanchez MD [address] [place] [address] [place] [address] PCP - General Family Medicine 10/07/23 documented as of this encounter
--- OUTSIDE RECORDS SUMMARY | 2024-03-06 12:36 | External Medical Summary | Summary of Care ---
Author Name Unknown Organization [facility] Address [address] [facility] [place] [address] Phone [phone] Care Team Providers Care City Auditor Name Role Phone Keagan Sanchez MD Primary Care Provider [phone] Reason for Visit * Reason Onset Date Comments [facility]: Maintenance 11/21/2023 Encounter Details Date Type Department Care Team (Late st Contact Info) Description 11/21/2023 11:15 AM EDT Scheduled Telephone [facility], [place] [facility] [address] [place] [address] Coordinator, [facility] [address] [place] [address] Allergies Active Allergy Reactions Criticality Noted Date Comments Adhesive Tape 03/31/2023 Other Reaction(s): Tape- redness, paper tape/coban "ok", [id number] TAPE OK OR COBAN Clarithromycin High 03/31/2023 [...] Oral Tablet (Zetia)Indications :Coronary artery disease involving [place] coronary artery of [place] heart with unstable angina pectoris (HCC) TAKE [...] hypothyroidism 04/12/2021 Coronary artery disease invo lving [place] coronary artery of [place] heart without angina pectoris 09/27/2020 S/P angioplasty [...] Haley DO - 11/21/2023 1:52 PM EDT [facility] Roberto Shaffer Subprogram: Short-Term [...] and correspondence: FYI to Shalini[facility] Care Team cake wrapper Pool please work on the following: contact the caller with advice and orders as above Dmitry Haley DO [facility] - [facility] 11/21/2023 Scheduled appointments in the next 60 days: Future Appointments-next 60 days Date/Time Provider Specialty Dept Phone 11/22/2023 12:00 PM [facility] Nurse [facility] [phone] 11/25/2023 8:00 AM (Arrive by 7:45 AM) Kelly Waddell PA-C Neurology [phone] 12/03/2023 8:30 AM (Arrive by 8:00 AM) MARY G-JS Radiology [phone] 12/09/2023 10:00 AM Oriana Isaacs PA-C [facility] [phone] 12/22/2023 1:40 PM (Arrive by 1:25 PM) Keagan Sanchez MD Family Medicine [phone] 12/29/2023 12:30 PM Nika Guevara RN [facility] [phone] 06/07/2024 11:00 AM (Arrive by 10:45 AM) Angela Littlejohn CRNP Cardiology [phone] 08/09/2024 10:00 AM Sami Angelo DO Orthopedics [phone] 10/07/2024 2:40 PM (Arrive by 2:25 PM) Alden Ann PA-C Dermatology [phone] * Telephone Encounter - Diana Valentin, FLOR - 11/21/2023 12:36 PM EDT Patient returned call to [facility] , she stated she is still having a lot of back pain , pain level is 7/10 today. She is taking Tramadol and Tylenol as needed for the back pain. MRI is scheduled but not until 12/02 at [facility]. Patient then stated she had "a [...] back with any recommendations. Diana Valentin RN [facility] Registered Nurse Navigator Triage * Telephone Encounter - Diana Valentin RN - 11/21/2023 10:30 AM EDT [facility] Telephonic Nurse Follow-Up Call [facility] Subprogram: Short-Term Management (less than 3 [...] no answer, left message,to return call to [facility] Disposition: Weekend call scheduled, may cancel if patient returns call today Future Visits Scheduled: Future Appointments-next 60 days Date/Time Provider Specialty Dept Phone 11/21/2023 11:15 AM Coordinator, [facility] [phone] 12/03/2023 8:30 AM (Arrive by 8:00 AM) MR1 G-JS Radiology [phone] 12/09/2023 10:00 AM Oriana Isaacs PA-C [facility] [phone] 12/22/2023 1:40 PM (Arrive by 1:25 PM) Keagan Sanchez MD Family Medicine [phone] 12/29/2023 12:30 PM Nika Guevara RN [facility] [phone] 06/07/2024 11:00 AM (Arrive by 10:45 AM) Angela Littlejohn CRNP Cardiology [phone] 08/09/2024 10:00 AM Sami Angelo DO Orthopedics [phone] 10/07/2024 2:40 PM (Arrive by 2:25 PM) Alden Ann PA-C Dermatology [phone] Diana Valentin RN [facility] Registered Nurse Navigator Triage documented in this encounter Plan of Treatment Upcoming Encounters Date Type Department Care Team (Late st Contact Info) Description 11/22/2023 12:00 PM EDT Scheduled Telephone [facility], [facility] [address] [place] [address] [place], Nurse [facility] [address] [facility] [address] 11/25/2023 8:00 AM EDT Office Visit Neurology [facility] [place] [address] [facility] [address] Kelly Waddell PA-C [address] [place] [address] 12/03/2023 8:30 AM EDT Appointment Radiology, [facility] [address] [facility] [address] 12/09/2023 10:00 AM EDT Home Visit [facility], [facility] [address] [place] [address] Oriana Isaacs PA-C [address] [place] [address] 12/22/2023 1:40 PM EDT Office Visit Family Practice [facility] [address] [place] [address] Keagan Sanchez MD [address] [place] [address] 12/29/2023 12:30 PM EDT Home Visit [facility] [address] [place] [address] Nika Guevara RN [address] [place] [address] 06/07/2024 11:00 AM EDT Office Visit Cardiology [facility] [address] [facility] [address] [place] [phone] Angela Littlejohn CRNP [address] [place] [address] 08/09/2024 10:00 AM EDT Office [facility] [place] [facility] [address] [place] [phone] Sami Angelo DO [address] [place] [address] 10/07/2024 2:40 PM EDT Office Visit Dermatology [facility] [address] [place] [phone] Alden Ann PA-C [address] [place] [address] Scheduled Procedures Name Priority Associated Diagnoses Date/Ti [...] D LEVEL ONCE IN A LIFETIME-USE SMARTSET# 88943 Completed 01/28/2022, 02/21/2015, 12/30/2011 RETIRED - COLONOSCOPY-EVERY [...] this encounter Medical Devices Implanted Type Area Community Facilitator Device Identifier Shelf Expiration Date Model / Serial / Lot Medtronic-05/27/2023 Implanted: (Quantity not on file) Neurostimulator [employer] : NEUROLOGIC PAIN 05/26/2049 [id number] / / [id number] Screw Jami Lacie 3 Ti Set - [id number] Implanted:Qt y: 6 on 03/10/2012 [place] [facility] [place]ilateral : Spine Lumbar LEVON : SPINE [id number] / / Screw Lacie Pa Ti 6.5x50mm - [id number] Implanted:Qt y: 4 on 03/10/2012 at [facility] Bilateral : Spine Lumbar LEVON : SPINE [id number] / / Quincy Xia3 7.0 X 40mm Screws Implanted:Qt y: 2 on 03/10/2012 at [place] [facility] [place] Bilateral : Spine Lumbar [id number] / / Shaun Lacie 3 Ti 6x70mm - [id number] Implanted:Qt y: 1 on 03/10/2012 at [place] [facility] N/A: Spine Lumbar LEVON : SPINE [id number] / / Shaun Lacie 3 Ti Max 6x80mm - [id number] Implanted:Qt y: 1 on 03/10/2012 at [place] [facility] N/A: Spine Lumbar LEVON : SPINE [id number] / / 9 X 25 X 4 - 8 Avs Wedge Nose Cage Implanted:Qt y: 1 on 03/10/2012 at [place] [facility] [place] N/A: Spine Lumbar [id number] / / Stent Synergy Xd Mr 2.47n29uk - [id number] Implanted:Qt y: 1 on 09/20/2020 at [facility] [employer] [id number] 04/18/2022 [id number] / / [id number] Stent Synergy Xd Mr 2.07q01cn - [id number] Implanted:Qt y: 1 on 09/20/2020 at [facility] [employer] [id number] 04/25/2022 [id number] 2220 / / [id number] Screw Locking 4.5mm 15mm - [id number] Implanted:Qt y: 1 on 07/11/2022 by Sami Angelo DO at [place] [facility] Right: Shoulder [employer] 11/22/2025 108-4515 / / [id number] Bseplate Jasmeet Cmntlss W Scrw - [id number] Implanted:Qt y: 1 on 07/11/2022 by Sami Angelo DO at [place] [facility] Right: Shoulder [employer] 03/24/2027 105-0029 / / [id number] [employer] Rev Thee W Scrw - [id number] Implanted:Qt y: 1 on 07/11/2022 by Sami Angelo DO at [place] [facility] Right: Shoulder [employer] 04/24/2027 105-3610 / / [id number] Screw Locking 4.5mm 15mm - [id number] Implanted:Qt y: 1 on 07/11/2022 by Sami Angelo DO at [place] [facility] Right: Shoulder [employer] 03/24/2027 108-4515 / / [id number] Screw Locking 4.5mm 20mm - [id number] Implanted:Qt y: 1 on 07/11/2022 by Sami [...] 07/11/2022 by Sami Angelo, DO at [place] [facility] Right: Shoulder 02/21/2025 313-0706 / / [id number] Screw Locking 4.5mm 20mm - [id number] Implanted:Qt y: 1 on 07/11/2022 by Sami Angelo, at [facility] [...] Pace Spouse Health Care Agent Care Teams City Auditor Relationship Specialty Start Date End Date Keagan Sanchez MD [address] [place] [phone] PCP - General Family Medicine 10/07/23 documented as of this encounter
--- OUTSIDE RECORDS SUMMARY | 2024-03-06 12:37 | External Medical Summary | Summary of Care ---
Author Name Unknown Organization [facility] Address [address] [facility] [place] [address] Phone [phone] Care Team Providers Care Online Marketing Coordinator Name Role Phone Keagan Sanchez MD Primary Care Provider [phone] Encounter Details Date Type Department Care Team (Late st Contact Info) Description 11/13/2023 Population Health External Data Unspecified Department Allergies Active Allergy Reactions Criticality Noted Date Comments Adhesive Tape 03/31/2023 Other Reaction(s): Tape- redness, paper tape/coban "ok", [id number] TAPE OK OR COBAN Clarithromycin High 03/31/2023 Other Reaction(s): Rash, diarrhea, RASH,DIARRHEA Duloxetine Hcl Flushing,Nausea/vomi tin g High 10/20/2019 Erythromycin Base Rash 03/14/2004 Orlistat Low 03/31/2023 Other Reaction(s): GI UPSET Penicillins Rash 03/14/2004 Prednisone Other (Please comment) High 10/10/2023 pancreatitis Sulfa Antibiotics Rash 03/14/2004 documented as of this encounter (statuses as of 11/13/2023) Medications Medication Sig Dispensed Refills Start Date [...] the morning. 30 Tablet 1 08/14/2023 Active Additional Information Patient not taking.Reported on 10/10/2023 Levalbuterol HCl 1.25 MG/3ML Inhalation Nebulization Solution [...] before bedtime. 60 Tablet 11 10/10/2023 Active traMADol HCl 50 MG Oral Tablet (Ultram)Indication s:Postlaminectomy syndrome, lumbar Take 2 Tablets by mouth every 6 hours as needed for Pain, Moderate. 90 Tablet 10/23/2023 Active Lactulose 10 GM/15ML Oral Solution (Constulose) [...] MORNING 90 Tablet 3 11/07/2023 11/06/2024 Active documented as of this encounter (statuses as of 11/13/2023) Active Problems Problem Noted Date Diagnosed Date [...] as of this encounter (statuses as of 11/13/2023) Resolved Problems Problem Noted Date Diagnosed Date [...] as of this encounter (statuses as of 11/13/2023) Immunizations Name Administration Dates Next Due COVID-19 [...] Care Team (Late st Contact Info) Description 11/17/2023 2:00 PM EDT [facility] Visit [facility] [address] [place] [address] Nika Guevara RN [address] [place] [address] 11/19/2023 10:00 AM EDT Office Visit Nutrition & Weight Management, [facility] [address] [place] [address] Anai Schultz PA-C [address] [place] [address] 12/09/2023 10:00 AM EDT Home Visit [facility], [facility] [address] [place] [address] Oriana Isaacs PA-C [address] [facility] [address] 12/22/2023 1:40 PM EDT Office Visit [address] [phone] Keagan Sanchez MD [address] [place] [address] 06/07/2024 11:00 AM EDT Office Visit Cardiology [facility] [address] [facility] [address] [place] [address] Angela Littlejohn CRNP [address] [place] [address] 08/09/2024 10:00 AM EDT Office Visit Orthopaedics [place] [address] [place] [address] Sami Angelo DO [address] [place] [address] 10/07/2024 2:40 PM EDT Office Visit Dermatology [facility] [address] [place] [address] Alden Ann PA-C [address] [place] [address] Scheduled Procedures Name Priority Associated Diagnoses Date/Ti [...] 10/31/2023, 0 05/2023, 08/23/2023, Additional history exists DTaP,Tdap,and Td Vaccines (3 - Td or Tdap) 10/10/2026 10/10/2016, 10/26/2005 Colonoscopy 04/18/2027 04/18/2022, 03/25, 08/10/2013, Additional history exists Colorectal Cancer Screening 04/18/2027 VITAMIN D LEVEL ONCE IN A LIFETIME-USE SMARTSET# 48545 Completed 01/28/2022, 02/21/2015, 12/30/2011 RETIRED - COLONOSCOPY-EVERY [...] this encounter Medical Devices Implanted Type Area Vice President Quality Assurance Device Identifier Shelf Expiration Date Model / Serial / Lot Screw Jami Lacie 3 Ti Set - [id number] Implanted:Qty: 6 on 03[place]10[place] [facility] [place]: Spine Lumbar LEVON : SPINE [id number] / / Screw Lacie Pa Ti 6.5x50mm - [id number] Implanted:Qty: 4 on 03/10/2012 [place] [facility] Bilateral: Spine Lumbar LEVON : SPINE [id number] / / Levon Xia3 7.0 X 40mm Screws Implanted:Qty: 2 on 03/10/2012 [place] [facility] Bilateral: Spine Lumbar [id number] / / Shaun Lacie 3 Ti 6x70mm - [id number] Implanted:Qty: 1 on 03/10/2012 [place] [facility] N/A: Spine Lumbar LEVON : SPINE [id number] / / Shaun Lacie 3 Ti Max 6x80mm - [id number] Implanted:Qty: 1 on 03/10/2012 [place] [facility] N/A: Spine Lumbar LEVON : SPINE [id number] / / 9 X 25 X 4 - 8 Avs Wedge Nose Cage Implanted:Qty: 1 on 03/10/2012 [place] [facility] N/A: Spine Lumbar [id number] / / Stent Synergy Xd Mr 2.39p60wz - [id number] Implanted:Qty: 1 on 09/20/2020 at [facility] [employer] [id number] 04/18/2022 [id number] / / [id number] Stent Synergy Xd Mr 2.75j65as - [id number] Implanted:Qty: 1 on 09/20/2020 at [facility] [employer] [id number] 04/25/2022 [id number] 220 / / [id number] Screw Locking 4.5mm 15mm - [id number] Implanted:Qty: 1 on 07/11/2022 by Sami Angelo DO [place] [facility] Right: Shoulder [employer] 11/22/2025 108-4515 / / [id number] Bseplate Jasmeet Cmntlss W Scrw - [id number] Implanted:Qty: 1 on 07/11/2022 by Sami Angelo DO [place] [facility] Right: Shoulder [employer] 03/24/2027 105-0029 / / [id number] [employer] Rev Thee W Scrw - [id number] Implanted:Qty: 1 on 07/11/2022 by Sami Angelo DO [place] [facility] Right: Shoulder [employer] 04/24/2027 105-3610 / / [id number] Screw Locking 4.5mm 15mm - [id number] Implanted:Qty: 1 on 07/11/2022 by Sami Angelo DO [place] [facility] Right: Shoulder [employer] 03/24/2027 108-4515 / / [id number] Screw Locking 4.5mm 20mm - [id number] Implanted:Qty: 1 on 07/11/2022 by Sami Angelo DO [place] [facility] Right: Shoulder [employer] 03/24/2027 108-4520 / / [id number] Humelock Ii Stem Ta6v Size 12 Cementless Implanted:Qty: 1 on 07/11/2022 by Sami Angelo DO [place] [facility] Right: Shoulder [employer] 10/22/2026 311-0212 / / [id number] Cortical Screw Ta6v, 5mm, L. 24mm Implanted:Qty: 1 on 07/11/2022 by Sami Angelo DO [place] [facility] Right: Shoulder [employer] 09/22/2023 107-4524 / / [id number] Humeral Cup 135/145 Degree, Standard, 36/+6 Implanted:Qty: 1 on 07/11/2022 by Sami Angelo DO at [place] [facility] Right: Shoulder 02/21/2025 313-0706 / / [id number] Screw Locking 4.5mm 20mm - [id number] Implanted:Qty: 1 on 07/11/2022 by Sami Angelo DO [place] [facility] Right: Shoulder [employer] 03/24/2027 108-4520 [...] Agents on File Name Relationship Healthcare Agent [facility] Donny Pace Spouse Health Care Agent Care Teams Online Marketing Coordinator Relationship Specialty Start Date End Date Keagan Sanchez MD [address] [place] [address] PCP - General Family Medicine 10/07/23 documented as of this encounter
--- OUTSIDE RECORDS SUMMARY | 2024-03-06 12:37 | External Medical Summary | Summary of Care ---
Author Name Unknown Organization [facility] Address [address] [facility] [place] [address] Phone [phone] Care Team Providers Care Information Systems Auditor Name Role Phone Keagan Sanchez MD Primary Care Provider [phone] Reason for Visit * Reason Comments Weight Management The pt stated she is here to follow up with weight management Encounter Details Date Type Department Care Team (Late st Contact Info) Description 11/19/2023 10:00 AM EDT Office Visit Nutrition & Weight Management, [facility] [address] [place] [address] Anai Schultz PA-C [address] [place] [address] Class 1 obesity due to excess calories with serious comorbidity in adult, unspecified BMI*; Abnormal weight gain; Anxiety states; Other specified hypothyroidism; Prediabetes; Mixed hyperlipidemia; S/P angioplasty with stent; Gastroparesis Allergies Active Allergy Reactions Criticality Noted Date Comments Adhesive Tape 03/31/2023 Other Reaction(s): Tape- redness, paper tape/coban "ok", [id number] TAPE OK OR COBAN Clarithromycin High 03/31/2023 [...] Oral Tablet (Zetia)Indications :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 (HCC) TAKE [...] hypothyroidism 04/12/2021 Coronary artery disease invo lving soboba coronary artery of soboba heart without angina pectoris 09/27/2020 S/P angioplasty [...] Sign Reading Time Taken Comments Blood Pressure 112/62 11/19/2023 9:59 AM EDT Pulse 61 11/19/2023 9:59 AM EDT Temperature 36.5 C (97.7 F) 11/19/2023 9:59 AM ED T Respiratory Rate - - Oxygen Saturation 96% 11/19/2023 9:59 AM EDT Inhaled Oxygen Concentration - - Weight 80.4 kg (177 lb 3.2 oz) 11/19/2023 9:59 A M EDT Height 162.6 cm (5' 4") 11/19/2023 9:59 AM EDT Body Mass Index 30.42 11/19/2023 9:59 AM EDT documented in this [...] as of this encounter Progress Notes * Anai Schultz PA-C - 11/19/2023 10:01 AM EDT [facility] Note Follow up Nursing Notes: Trever Wade HerbANDRA 11/19/23 1000 Signed Chief Complaint Patient presents with Weight Management The pt stated she is here to follow up with weight management HPI Shalini Pace presents in follow up to the comprehensive weight management clinic. The patient is a 62 year old female Patient is receiving ongoing education regarding dietary and physical modifications for weight loss. Weight history - Initial clinic visit 02/11/2023 Weight 190 lbs Height 64" Body mass index is 32.72 kg/m. Today's weight: 177 pounds Total weight loss of -13 pounds since initial weight in clinic The patient's weight has +3 pounds since the last visit on 05/15/23 Wt Readings from Last 6 Encounters: 11/19/23 80.4 kg (177 lb 3.2 oz) 11/17/23 79.4 kg (175 lb) 10/31/23 78 kg (172 lb) 10/28/23 80.1 kg (176 lb 9.6 oz) 10/10/23 81.2 kg (179 lb) 10/03/23 81.2 kg (179 lb) 11/19/2023 -in clinic follow up -diet has been off during the summer-- she hasn't been tracking - 05/15/2023 -tolerating metformin Has really been trying to restrict calories Protein is about 30g-40g per day average Visit 02/11/23 The patient suffers from Class I obesity Patient is interested in the following treatment options for obesity: possible medication use. Previous Weight Management Interventions: The patient has tried weight loss in the past without significant salvage determiner success. Previous interventions: Self-directed. Watching what she ate Limited activity due to shoulder surgery and chronic back pain Hope to improve back pain Does have gastroparesis Weight watchers Tried hydroxycut The patient denies any past pharmacotherapy for weight loss . [id number] Current diet: Describes typical diet history/24 hr recall Breakfast: yogurt andorran, tea, banana, toast Snacks: cheese stick Lunch: protein shake, leftovers Snacks: apple, protein shake Dinner: lasagna Snacks: peanut butter sandwich Drinks: water, peach tea (alyssa 1 bottle) , flavored water Restaurant meals: twice a week Past Medical History Patient Active Problem List Diagnosis Migraine with [...] descending (LAD) artery Coronary artery disease involving soboba coronary artery of soboba heart without angina pectoris S/P angioplasty with [...] artery disease due to lipid rich plaque Current Medications: Current Outpatient Medications Medication Sig Dispense Refill Cholecalciferol (VITAMIN D) 1000 UNIT Capsule Take 1 Cap by mouth daily. 30 Cap 11 Sennosides (SENNA) 8.6 MG Tablet TAKE 2 TABLETS BY MOUTH DAILY NEEDED FOR CONSTIPATION. 60 Tab 5 Aspirin 81 MG Oral Tablet Chewable Take 1 Tab by mouth daily. 30 Tab 11 Topiramate 25 MG Oral Tablet (topAMAX) TAKE TWO TABLETS BY MOUTH AT BEDTIME (Patient taking differently: Take 2 Tablets by mouth at bedtime. Take 2 tablets (50mg total) by mouth at bed time) 180 Tablet 5 Pantoprazole Sodium 40 MG Oral Tablet Delayed [...] MOUTH IN THE MORNING 90 Tablet 3 Levothyroxine Sodium 112 MCG Oral Tablet (Levoxyl) TAKE 1 TABLET BY MOUTH DAILY AT LEAST 30 MINUTESPRIOR TO FIRST MEAL OF THE DAY OR OTHER MEDICATIONS 90 Tablet 1 Sucralfate 1 GM Oral Tablet (Carafate) TAKE [...] needed for Pain, Moderate. 90 Tablet 0 Lactulose 10 GM/15ML Oral Solution (Constulose) Take 15 mL by mouth 2 times a day as needed for Constipation. severe constipation (Patient not taking: Reported on 11/19/2023) 237 mL 1 No current facility-administered medications for this visit. Review of Systems: Review of Systems Gastrointestinal: Negative for abdominal pain, diarrhea, nausea and vomiting. Psychiatric/Behavioral: Negative for dysphoric mood. The patient is not nervous/anxious. PHYSICAL EXAMINATION: BP 112/62 | Pulse 61 | Temp 36.5 C (97.7 F) | Ht 1.626 m (5' 4") | Wt 80.4 kg (177 lb 3.2 oz) |SpO2 96% | BMI 30.42 kg/m | BSA 1.91 m Physical Exam Vitals and nursing note reviewed. Constitutional: Appearance: Normal appearance. HENT: Head: Normocephalic and atraumatic. Cardiovascular: Normal rate. Pulmonary: Effort: Pulmonary effort is normal. No respiratory distress. Neurological: Mental Status: Alert and oriented to person, place, and time. Psychiatric: Mood and Affect: Mood normal. Assessment and Plan: Abnormal weight gain / Body mass index is 30.42 kg/m. / Overweight: - Barriers are consistency, - Motivators are feeling better overall, avoiding/reducing co-morbid conditions, - The patient was encouraged to to avoid all fruit juices and regular sodas, consume at least 64 ounces of water per day, keep food logs and get weighed on a weekly basis. They were encouraged to increase physical activity as prescribed. - Handouts regarding nutrition and physical activity were provided, as appropriate. GOALS Get back to tracking-- does really well when tracking Keep up the good protein intake (60g+ per day) Continue metformin per PCP Anti obesity Medication Indications: BMI >30 or BMI >27 with obesity related comorbidity & no apparent contraindications Goal is to lose ~5% wt loss in 3 mo Wegovy/Saxenda/Zepbound: avoid-- h/o idiopathic pancreatitis Ozempic, Victoza, Trulicity, Mounjaro: contraindicated Wellbutrin: could consider-- but would rather not take more medication Naltrexone: Topamax: already taking for migraines Phentermine: contraindicated Xenical: Metformin: already taking for pre diabetes Class 1 obesity due to excess calories with serious comorbidity in adult, unspecified BMI Goals as above -avoid GLP-1; h/o idiopathic pancreatitis and gastroparesis -avoid phentermine-- h/o DE and stent -already on topamax -could consider wellbutrin/naltrexone-- caution mood changes Abnormal weight gain Anxiety states Reports well controlled DDD (degenerative disc disease), cervical Limits activity Back pain has been worse recently-- she will see the doctor tomorrow Gastroparesis Avoid GLP-1 Other specified hypothyroidism Continue levothyroxine Mixed hyperlipidemia S/P angioplasty with stent Avoid phentermine Prediabetes Continue metformin Unfortunately GLP-1 is contraindicated for her Hemoglobin A1C last 3 results: Lab Results Component Value Date/Time HEMATOCRIT POCT - [facility] 28 (L) 03/10/2012 02:40 PM HEMOGLOBIN A1C - [facility] 6.0 (H) 07/17/2023 09:07 AM HEMOGLOBIN A1C - [facility] 6.0 (H) 02/12/2023 08:52 AM HEMOGLOBIN A1C - [facility] 5.1 09/20/2020 06:05 AM HEMOGLOBIN A1C - [facility] 5.2 06/23/2014 09:27 AM HEMOGLOBIN A1C - [facility] 5.5 04/04/2008 12:14 PM HEMOGLOBIN I-STAT POCT - [facility] 9.5 (L) 03/10/2012 02:40 PM The patient agreed to try the plan as discussed and return in 3-6 months. They were encouraged to call or send a patient portal message in the meantime with any questions or concerns prior to their next clinic visit. I spent a total of 26 minutes on the date of service in preparation, delivery, and documentation ofthe care provided to Shalini Pace excluding any time spent in the performance of separately billed services. This included but was no limited to providing counseling about the benefits of weight loss, about their nutritional status, detailed explanations about calorie count, types of nutrients to choose, and composition of the meals. Motivational interview provided in order to prepare the patient to achieve future goals. Anai Schultz PA-C, [facility] documented in this encounter Nursing Notes * Trever Wade LPN - 11/19/2023 9:58 AM EDT Chief Complaint Patient presents with Weight Management The pt stated she is here to follow up with weight management documented in this encounter Plan of Treatment Upcoming Encounters Date Type Department Care Team ([facility] st Contact Info) Description 11/20/2023 9:45 AM EDT Scheduled Telephone [facility] [address] [place] [address] Coordinator, [facility] [address] [place] [address] 11/20/2023 10:20 AM EDT Office Visit [address] [phone] Jamarcus Carreno PA-C [address] [place] [address] 12/09/2023 10:00 AM EDT Home Visit [facility] [address] [place] [address] Oriana Isaacs PA-C [address] [place] [address] 12/22/2023 1:40 PM EDT Office Visit [address] [phone] Keagan Sanchez MD [address] [place] [address] 12/29/2023 12:30 PM EDT Home Visit [facility] [address] [place] [address] Nika Guevara RN [address] [place] [address] 06/07/2024 11:00 AM EDT Office Visit Cardiology [address] [place] [phone] Angela Littlejohn CRNP [address] [place] [address] 08/09/2024 10:00 AM EDT Office Visit Orthopaedics Andrez Alejandre [address] [place] [address] Sami Angelo BenjamínkristaDO [address] [place] [address] 10/07/2024 2:40 PM EDT Office Visit Dermatology [facility] [address] [place] [address] Alden Ann PA-C [address] [place] [address] Scheduled Procedures Name Priority Associated Diagnoses Date/Ti [...] D LEVEL ONCE IN A LIFETIME-USE SMARTSET# 61332 Completed 01/28/2022, 02/21/2015, 12/30/2011 RETIRED - COLONOSCOPY-EVERY [...] this encounter Medical Devices Implanted Type Area Saw Maker Device Identifier Shelf Expiration Date Model / Serial / Lot Screw Jami Lacie 3 Ti Set - [id number] Implanted:Qty: 6 on 03/10/2012 at [facility] Bilateral: Spine Lumbar LEVON : SPINE [id number] / / Screw Lacie Pa Ti 6.5x50mm - [id number] Implanted:Qty: 4 on 03/10/2012 at OR [facility] Bilateral: Spine Lumbar LEVON : SPINE [id number] / / Levon Xia3 7.0 X 40mm Screws Implanted:Qty: 2 on 03/10/2012 at [facility] Bilateral: Spine Lumbar [id number] / / Shaun Lacie 3 Ti 6x70mm - [id number] Implanted:Qty: 1 on 03/10/2012 at OR [facility] N/A: Spine Lumbar LEVON : SPINE [id number] / / Shaun Lacie 3 Ti Max 6x80mm - [id number] Implanted:Qty: 1 on 03/10/2012 at OR [facility] N/A: Spine Lumbar LEVON : SPINE [id number] / / 9 X 25 X 4 - 8 Avs Wedge Nose Cage Implanted:Qty: 1 on 03/10/2012 at [facility] N/A: Spine Lumbar [id number] / / Stent Synergy Xd Mr 2.13z79sx - [id number] Implanted:Qty: 1 on 09/20/2020 at [facility] Stantum [id number] 04/18/2022 [id number] 220 / / [id number] Stent Synergy Xd Mr 2.52p05si - [id number] Implanted:Qty: 1 on 09/20/2020 at [facility] [employer] [id number] 04/25/2022 [id number] 220 / / [id number] Screw Locking 4.5mm 15mm - [id number] Implanted:Qty: 1 on 07/11/2022 by Sami Angelo DO at OR [facility] Right: Shoulder [employer] 11/22/2025 108-4515 / / [id number] Bseplate Jasmeet Cmntlss W Scrw - [id number] Implanted:Qty: 1 on 07/11/2022 by Sami Angelo DO at OR [facility] Right: Shoulder [employer] 03/24/2027 105-0029 / / [id number] Glenosphere Rev Thee W Scrw - [id number] Implanted:Qty: 1 on 07/11/2022 by Sami Angelo DO at OR [facility] Right: Shoulder [employer] 04/24/2027 105-3610 / / [id number] Screw Locking 4.5mm 15mm - [id number] Implanted:Qty: 1 on 07/11/2022 by Sami Angelo DO at OR [facility] Right: Shoulder [employer] 03/24/2027 108-4515 / / [id number] Screw Locking 4.5mm 20mm - [id number] Implanted:Qty: 1 on 07/11/2022 by Sami Angelo DO at OR [facility] Right: Shoulder [employer] 03/24/2027 108-4520 / / [id number] Humelock Ii Stem Ta6v Size 12 Cementless Implanted:Qty: 1 on 07/11/2022 by Sami Angelo DO at OR [facility] Right: Shoulder [employer] 10/22/2026 [id number] / / [id number] Cortical Screw Ta6v, 5mm, L. 24mm Implanted:Qty: 1 on 07/11/2022 by Sami Angelo DO at OR [facility] Right: Shoulder [employer] 09/22/2023 107-4524 / / [id number] Humeral Cup 135/145 Degree, Standard, 36/+6 Implanted:Qty: 1 on 07/11/2022 by Sami Angelo DO at OR [facility] Right: Shoulder 02/21/2025 [id number] / / [id number] Screw Locking 4.5mm 20mm - [id number] Implanted:Qty: 1 on 07/11/2022 by Sami Angelo DO at OR [facility] Right: Shoulder [employer] 03/24/2027 108-4520 / / [id number] documented as of this encounter Visit Diagnoses Diagnosis Class 1 obesity due to excess calories with serious comorbidity in adult, unspecified BMI- Primary Abnormal weight gain Anxiety states Anxiety state, unspecified Other specified hypothyroidism Prediabetes Other abnormal glucose Mixed hyperlipidemia S/P angioplasty with stent Postsurgical percutaneous transluminal coronary angioplasty status Gastroparesis documented in this encounter Advance Directives * [...] Agents on File Name Relationship Healthcare Agent [facility] p Communication Donny Pace Spouse Health Care Agent Care Teams Information Systems Auditor Relationship Specialty Start Date End Date Keagan Sanchez MD [address] [place] [address] PCP - General Family Medicine 10/07/23 documented as of this encounter
--- OUTSIDE RECORDS SUMMARY | 2024-03-06 12:37 | External Medical Summary | Summary of Care ---
Author Name Unknown Organization [facility] Address [address] [facility] [place] [address] Phone [phone] Care Team Providers Care Jack Spooler Tender Name Role Phone Keagan Jalloh MD Primary Care Provider [phone] Reason for Referral * Medication Prior Authorization - Closed Specialty Diagnoses / Procedures Referred By Lynn t Referred To Contact Diagnoses Postlaminectomy syndrome, lumbar Keagan Jalloh MD [address] [place] [address] Referral ID Status Reason Start Date Expiration Date Visits Re quested Visits Authorized [id number] Closed [phone] Reason for Visit * Reason Onset Date Comments Medication Refill 11/13/2023 Encounter Details Date Type Department Care Team ([facility] Contact Info) Description 11/13/2023 Refill Family [address] [phone] Keagan Jalloh MD [address] [place] [address] Postlaminectomy syndrome, lumbar Allergies Active Allergy Reactions Criticality Noted Date Comments Adhesive Tape 03/31/2023 Other Reaction(s): Tape- redness, paper tape/coban "ok", [id number] TAPE OK OR COBAN Clarithromycin High 03/31/2023 Other Reaction(s): Rash, diarrhea, RASH,DIARRHEA Duloxetine Hcl Flushing,Nausea/vomi tin g High 10/20/2019 Erythromycin Base Rash 03/14/2004 Orlistat Low 03/31/2023 Other Reaction(s): GI UPSET Penicillins Rash 03/14/2004 Prednisone Other (Please comment) High 10/10/2023 pancreatitis Sulfa Antibiotics Rash 03/14/2004 documented as of this encounter (statuses as of 11/14/2023) Medications Medication Sig Dispensed Refills Start Date [...] MORNING 90 Tablet 3 05/26/2023 5 Active Levothyroxine Sodium 112 MCG Oral Tablet (Levoxyl) TAKE 1 TABLET BY MOUTH DAILY AT LEAST 30 MINUTES PRIOR TO FIRST MEAL OF THE DAY OR OTHER MEDICATIONS 90 Tablet 1 06/03/2023 5 Active Sucralfate 1 GM Oral Tablet [...] Oral Tablet (Zetia)Indication s: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 90 Tablet 11/14/2023 Active traMADol HCl 50 MG Oral Tablet (Ultram)Indicatio ns:Postlaminectom y syndrome, lumbar Take 2 Tablets by mouth every 6 hours as needed for Pain, Moderate. 90 Tablet 10/23/2023 4 Discontinue d(Refill) documented as of this encounter (statuses as of 11/14/2023) Active Problems Problem Noted Date Diagnosed Date [...] hypothyroidism 04/12/2021 Coronary artery disease invo lving nondalton coronary artery of nondalton heart without angina pectoris 09/27/2020 S/P angioplasty [...] as of this encounter (statuses as of 11/14/2023) Resolved Problems Problem Noted Date Diagnosed Date [...] as of this encounter (statuses as of 11/14/2023) Immunizations Name Administration Dates Next Due COVID-19 [...] Telephone Encounter - Keagan Jalloh MD - 11/14/2023 1:54 PM EDTSigned Prescriptions: Disp Refills traMADol HCl 50 MG Oral Tablet (Ultram) 90 Tab*0 Sig: Take 2 Tablets by mouth every 6 hours as needed for Pain, Moderate. Authorizing Provider: KEAGAN JALLOH * [facility] 1[facility]21 PM EDT Pending Prescriptions: Disp Refills traMADol HCl 50 MG Oral Tablet (Ultram) 90 Tab*0 Sig: Take 2 Tablets by mouth every 6 hours as needed for Pain, Moderate. * Telephone Encounter - Lisa Gamble [facility] - 11/14/2023 1:03 PM EDTPending Prescriptions: Disp Refills traMADol HCl 50 MG Oral Tablet (Ultram) 90 Tab*0 Sig: Take 2 Tablets by mouth every 6 hours as needed for Pain, Moderate. * Telephone Encounter - Lisa Gamble [facility] - 11/14/2023 1:00 PM EDT I have reviewed the patients controlled substance dispensing history in the Prescription Drug Monitoring Program in compliance with the [facility] regulations before prescribing a controlled substance. PDMP checked on 11/14/2023. Pending Prescriptions: Disp Refills traMADol HCl 50 MG Oral Tablet (Ultram) 90 Tab*0 Sig: Take 2 Tablets by mouth every 6 hours as needed for Pain, Moderate. Last Visit: 10/28/2023 (in office), 10/31/2023 (telemedicine) Next Visit: 12/22/2023 Date medication was last filled: 10/23/23 Date medication is due for refill: 11/04/23 Pharmacy: [facility] [id number] Is this request for a controlled [...] Results Review. Please approve if appropriate. Thanks, Lisa Gamble, PharmD Clinical Pharmacist [facility] ([facility]) 11/14/2023, 1:00 PM * Telephone Encounter - Shalini Jacobs CPhT - 11/14/2023 12:51 PM EDT Pt is in severe pain in her back and around her side. Pt hoping to get refill authorized today. Please advise. Thank you, Shalini Jacobs CPhT Farm Tractor Mechanic II [facility] ([facility]) 11/14/2023,12:53 PM * Telephone Encounter - Gaviota Crowder PHARM Tech - 11/14/2023 12:49 PM EDT Patient calling to check on status of tramadol. Caller can be reached at [phone]. Transferred caller to [facility] to discuss. Thank you, Gaviota Crowder Assembler Corncob Pipes I [facility] ([facility]) 11/14/2023,12:49 PM * Telephone Encounter - Abigail Montoya PHARM Tech - 11/13/2023 12:18 PM EDT Did you pend patient's preferred pharmacy and medication before forwarding?yes Pharmacy: [facility] # [id number] Pending Prescriptions: Disp Refills traMADol HCl 50 MG Oral Tablet (Ultram) 90 Tab*0 Sig: Take 2 Tablets by mouth every 6 hours as needed for Pain, Moderate. Last Visit: 10/28/2023 (in office), 10/31/2023 (telemedicine) Next Visit: 12/22/2023 If no future appointments scheduled, and last appointment is greater than a year ago, please schedule patient for a follow-up appointment Last date the medication was ordered: 10/23/2023 Is this request for a controlled substance?Yes, What was the last refill date 10/23/2023 w/ quantity 90 and dosage 50 and Urine Drug Screen was completed Urine Drug Screen: Results for orders [...] 09:07 AM TSH 2.74 10/20/2019 08:59 AM LDLCALC 40 08/24/2023 12:22 AM LDLCALC 120 10/20/2019 08:59 AM LDLDIRECT 63 09/10/2022 09:42 AM LDLDIRECT NOT APPLICABLE 10/20/2019 08:59 AM LDLDIRECT 171 (H) 05/16/2008 11:11 AM ALT 74 (H) 10/31/2023 04:14 PM ALT 32 10/20/2019 08:59 AM HGBA1C 6.0 (H) 07/17/2023 09:07 AM HGBA1C 5.2 06/23/2014 09:27 AM documented in this encounter Plan of Treatment Upcoming Encounters Date Type Department Care Team (Late st Contact Info) Description 11/17/2023 2:00 PM EDT [facility] Visit [facility] [address] [place] [address] Nika Guevara RN [address] [place] [address] 11/19/2023 10:00 AM EDT Office Visit Nutrition & Weight Management, [facility] [address] [facility] [place] [address] Anai Schultz PA-C [address] [facility] [place] [address] 12/09/2023 10:00 AM EDT Home Visit [facility] [address] [place] [address] Oriana Isaacs PA-C [address] [place] [address] 12/22/2023 1:40 PM EDT Office Visit Family Practice [facility] [address] [place] [phone] Keagan Jalloh MD [address] [place] [address] 06/07/2024 11:00 AM EDT Office Visit Cardiology [facility] [address] [facility] [address] [place] [address] Angela Littlejohn CRNP [address] [place] [address] 08/09/2024 10:00 AM EDT Office Visit [facility] [address] [place] [address] Sami Angelo DO 16 [place] [address] 10/07/2024 2:40 PM EDT Office Visit Dermatology [facility] [address] [place] [phone] Alden Ann PA-C [address] [place] [address] Scheduled Procedures Name Priority Associated Diagnoses Date/Ti [...] 10/31/2023, 06/0 05/2023, 08/23/2023, Additional history exists DTaP,Tdap,and Td Vaccines (3 - Td or Tdap) 10/10/2026 10/10/2016, 10/26/2005 Colonoscopy 04/18/2027 04/18/2022, 03/25, 08/10/2013, Additional history exists Colorectal Cancer Screening 04/18/2027 VITAMIN D LEVEL ONCE IN A LIFETIME-USE SMARTSET# 08627 Completed 01/28/2022, 02/21/2015, 12/30/2011 RETIRED - COLONOSCOPY-EVERY [...] this encounter Medical Devices Implanted Type Area Verification Clerk Device Identifier Shelf Expiration Date Model / Serial / Lot Screw Jami Lacie 3 Ti Set - [id number] Implanted:Qty: 6 on 03/10/2012 at [place] [facility] Bilateral: Spine Lumbar LEVON : SPINE [id number] / / Screw Lacie Pa Ti 6.5x50mm - [id number] Implanted:Qty: 4 on 03/10/2012 at OR [facility] Bilateral: Spine Lumbar LEVON : SPINE [id number] / / [place] Xia3 7.0 X 40mm Screws Implanted:Qty: 2 on 03/10/2012 at OR [facility] Bilateral: Spine Lumbar [id number] / / Shaun Lacie 3 Ti 6x70mm - [id number] Implanted:Qty: 1 on 03/10/2012 at OR [facility] N/A: Spine Lumbar LEVON : SPINE [id number] / / Shaun Lacie 3 Ti Max 6x80mm - [id number] Implanted:Qty: 1 on 03/10/2012 at OR [facility] N/A: Spine Lumbar LEVON : SPINE [id number] / / 9 X 25 X 4 - 8 Avs Wedge Nose Cage Implanted:Qty: 1 on 03/10/2012 at OR [facility] N/A: Spine Lumbar [id number] / / Stent Synergy Xd Mr 2.60x50lz - [id number] Implanted:Qty: 1 on 09/20/2020 at [facility] Hyperformix [id number] 04/18/2022 [id number] 220 / / [id number] Stent Synergy Xd Mr 2.93l34ey - [id number] Implanted:Qty: 1 on 09/20/2020 at [facility] Hyper[employer] [id number] 04/25/2022 [id number] 220 / / [id number] Screw Locking 4.5mm 15mm - [id number] Implanted:Qty: 1 on 07/11/2022 by Sami Angelo DO at OR [facility] Right: Shoulder [employer] 11/22/2025 108-4515 / / [id number] Bseplate Jasmeet Cmntlss W Scrw - [id number] Implanted:Qty: 1 on 07/11/2022 by Sami Angelo DO at OR [facility] Right: Shoulder [employer] 03/24/2027 105-0029 / / [id number] Glenosphere Rev Thee W Scrw - [id number] Implanted:Qty: 1 on 07/11/2022 by Sami Angelo DO at OR [facility] Right: Shoulder [employer] 04/24/2027 105-3610 / / [id number] Screw Locking 4.5mm 15mm - [id number] Implanted:Qty: 1 on 07/11/2022 by Sami Angelo DO at OR [facility] Right: Shoulder [employer] 03/24/2027 108-4515 / / [id number] Screw Locking 4.5mm 20mm - [id number] Implanted:Qty: 1 on 07/11/2022 by Sami Angelo DO at OR [facility] Right: Shoulder [employer] 03/24/2027 108-4520 / / [id number] [place] Ii Stem Ta6v Size 12 Cementless Implanted:Qty: 1 on 07/11/2022 by Sami Angelo DO at OR [facility] Right: Shoulder [employer] 10/22/2026 [id number] / / [id number] Cortical Screw Ta6v, 5mm, L. 24mm Implanted:Qty: 1 on 07/11/2022 by Sami Angelo DO at OR [facility] Right: Shoulder [employer] 09/22/2023 107-4524 / / [id number] Humeral Cup 135/145 Degree, Standard, 36/+6 Implanted:Qty: 1 on 07/11/2022 by Sami Angelo DO at OR [facility] Right: Shoulder 02/21/2025 [id number] / / [id number] Screw Locking 4.5mm 20mm - [id number] Implanted:Qty: 1 on 07/11/2022 by Sami Angelo DO at OR [facility] Right: Shoulder [employer] 03/24/2027 108-4520 [...] Pace Spouse Health Care Agent Care Teams Jack Spooler Tender Relationship Specialty Start Date End Date Keagan Jalloh MD [address] [place] [address] PCP - General Family Medicine 10/07/23 documented as of this encounter
--- OUTSIDE RECORDS SUMMARY | 2024-03-06 12:37 | External Medical Summary | Summary of Care ---
Author Name Unknown Organization [facility] Address [address] [facility] [place] [address] Phone [phone] Care Team Providers Care Belting And Webbing Inspector Name Role Phone Keagan Sanchez MD Primary Care Provider [phone] Reason for Visit * Reason Comments [facility]: Enrollment Encounter Details Date Type Department Care Team (Late st Contact Info) Description 11/17/2023 2:00 PM EDT Home Visit [facility] [address] [place] [address] Nika Guevara RN [address] [place] [address] Allergies Active Allergy Reactions Criticality Noted Date Comments Adhesive Tape 03/31/2023 Other Reaction(s): Tape- redness, paper tape/coban "ok", [id number] TAPE OK OR COBAN Clarithromycin High 03/31/2023 Other Reaction(s): Rash, diarrhea, RASH,DIARRHEA Duloxetine Hcl Flushing,Nausea/vomi tin g High 10/20/2019 Erythromycin Base Rash 03/14/2004 Orlistat Low 03/31/2023 Other Reaction(s): GI UPSET Penicillins Rash 03/14/2004 Prednisone Other (Please comment) High 10/10/2023 pancreatitis Sulfa Antibiotics Rash 03/14/2004 documented as of this encounter (statuses as of 11/18/2023) Medications Medication Sig Dispensed Refills Start Date [...] as of this encounter (statuses as of 11/18/2023) Active Problems Problem Noted Date Diagnosed Date [...] as of this encounter (statuses as of 11/18/2023) Resolved Problems Problem Noted Date Diagnosed Date [...] as of this encounter (statuses as of 11/18/2023) Immunizations Name Administration Dates Next Due COVID-19 [...] Sign Reading Time Taken Comments Blood Pressure 110/62 11/17/2023 2:15 PM EDT Pulse 68 11/17/2023 2:15 PM EDT Temperature 36.6 C (97.9 F) 11/17/2023 2:15 PM ED T Respiratory Rate - - Oxygen Saturation 96% 11/17/2023 2:15 PM EDT room air Inhaled Oxygen Concentration - - Weight 79.4 kg (175 lb) 11/17/2023 2:15 PM EDT Height - - Body Mass Index 30.04 10/03/2023 8:38 AM EDT documented in this encounter Functional [...] Progress Notes * Nika Guevara RN - 11/17/2023 2:15 PM EDT [facility] Monthly Visit Date: 11/17/2023 Time: 2:15 PM Name: Shalini Pace : 1960 Current Concerns: Shalini is a 60 yo female being seen in her home for a new [facility] re-enrollment [facility] visit. She is pleasant, oriented, & a good historian. Weighs daily. Ambulates during visit without difficulty. She was previously enrolled in [facility] back in 2021. She is familiar with [facility] program She reports complains pain left back & radiated around to her groin & down her leg. She describes pain as sharp burning pain. If she moves or twist quickly & feels like a shocking pain. She has had XRAY on hip & CT of pelvis. Physical Exam: BP 110/62 (BP Site: Right Arm, BP Position: Sitting) | Pulse 68 | Temp 36.6 C (97.9 F) (Tympanic) | Wt 79.4 kg (175 lb) | SpO2 96% Comment: room air | BMI 30.04 kg/m | BSA 1.89 m Pain 8 Physical Exam Constitutional: General: She is awake. Appearance: Normal appearance. HENT: Nose: No congestion. Mouth/Throat: Mouth: Mucous membranes are moist. Neck: Vascular: No hepatojugular reflux or JVD. Cardiovascular: Rate and Rhythm: Normal rate. Pulmonary: Effort: Pulmonary effort is normal. Breath sounds: Normal breath sounds. Comments: unlabored Abdominal: General: Bowel sounds are normal. Palpations: Abdomen is soft. Musculoskeletal: General: Tenderness (pain on touch to left lower back) present. Normal range of motion. Cervical back: [...] is 5. GCS motor subscore is 6. Motor: No weakness. Psychiatric: Attention and Perception: Attention and perception normal. Mood and Affect: Mood and affect normal. Speech: Speech normal. Behavior: Behavior normal. Behavior is cooperative. Thought Content: Thought content normal. Cognition and Memory: Cognition normal. Judgment: Judgment normal. Problems/Symptoms: Review of Systems HENT: Positive for postnasal drip (at night - chronic). Eyes: Wears glasses Respiratory: Room air Gastrointestinal: Negative for constipation (chronic). Does not tolerate sauces or greasy foods irritate her pancreatitis & gastritis. LBM today 09/2023 - seen provider in PCP office & then to hospital in 10/2023- she was told she has constipation & uritis. She reports she has been taking prune juice every day. Miralax every other daily. Genitourinary: Urinating without issues Musculoskeletal: Positive for back pain (Complained pain back & radiated around to her groin & down her leg. reports this has been going on since september - she thinks it happened when she lifteda basket of tomatoes. she reports she was told before September her discs are bad.). Avoiding lifting & twisting Taking tramadol every 6 hours. Neuro stimulator implanted in right back above hip follows up with pain management Dr. Esteves & Dr. Daly [facility]. Skin: Negative. Neurological: Positive for headaches. Medication Reconciliation: (See medication list) Does patient take medications as ordered: Yes Patient Well Being: PHQ2/9: No questionnaires available. Lives with spouse. One story home. Spouse drives herself post of the time. She is able to drive but typically doesn't r/t neuropathy & drop foot. No food insecurities Is able to prepare meals [facility] Completed this Visit: Yes. [facility]: Reason Completed: Enrollment [facility] Interventions: DME ordered: walker & cane occasionally Confirmed current care and supervision in home: lives with spouse Advanced Care Planning: No documentation, not discussed today. Patient's Goals of Care: Improve pain Get back to her normal activities Reinforcement/Education: Educated on home safety: Create a fall proof home Clear floors of clutter, loose wires, throw rugs, and cords. Make sure halls, stairways, and entrances are well lit. Install a nightlight in your bedroom, hallway and bathroom. Install grab bars or handrails in the bathroom and on stairs. Use a non-skid tub/shower mat. Avoid climbing on a chair; instead use a step stool with a high handrail. Keep sidewalks and steps in good repair Keep steps and sidewalks free of snow and ice. Using aids to support and prevent falls If you have poor balance or have fallen in the past, consider additional support such as a cane or walker. Use a cane with good support and that is the proper length for you. Use a walker if a cane doesnt provide enough support. Avoid medications that increase the risk of falling by causing dizziness, change in sensation or slowed reflexes. Certain medicines may cause falls - blood pressure pills, heart medicines, water pills, or sleepingpills. Be sure to understand each medicine that you are taking and any side effects that may occur. Improve your balance and flexibility with muscle strengthening exercises. Ask your health care provider for some exercises that will be right for you. Reinforced safety education and fall prevention. and Reinforced medication regimen. Timing., Dosing., and Purspose. Treatment/Plan: Left lower back, groin, & leg pain Spoke to Oriana Isaacs PA-C -she will review imaging - f/u 12.09.23 -rotate warm & cold compresses to lower back / left hip Reviewed [facility] role. Pt has [facility] magnet. Home Interventions Provided: Consulted PCP/Specialist Reinforced current Plan of Care, including self-management and medication regimen Updated Exacerbation Plan Patient's 'Red Flags': SOB, green sputum, chest tightness No BM in 3 or more days, n/v/d fevers Patient Needs to Remember: Call [facility] or PCP with needs or medical changes Referrals Needed: Other none Follow Up: Is there cellular connectivity/connectivity in the home? Yes Does the patient have internet in the home? Yes Patient encouraged to call the intake phone number for all urgent but not emergent issues. Is the patient new [facility] within the last 30 days? Yes, Is this a Transitions of Care visit? Yes, this is the 1st visit. Provider is in agreement with Plan of Care: Yes Scheduled to follow up with patient in ~4-6 weeks. Nika Guevara RN 11/17/2023 2:15 PM documented in this encounter Plan of Treatment Upcoming Encounters Date Type Department Care Team (Late st Contact Info) Description 11/19/2023 10:00 AM EDT Office Visit Nutrition & Weight Management, [facility] [address] [address] Anai Schultz PA-C [address] [place] [address] 12/09/2023 10:00 AM EDT [facility] [address] [place] [address] Oriana Isaacs PA-C [address] [place] [address] 12/22/2023 1:40 PM EDT Office Visit [facility] [address] [place] [address] Keagan Sanchez MD [address] [place] [address] 12/29/2023 12:30 PM EDT [facility] Visit [facility] [address] [place] [address] Nika Guevara RN [address] [place] [address] 06/07/2024 11:00 AM EDT Office Visit Cardiology [facility] [address] [facility] [address] [place] [address] Angela Littlejohn CRNP [address] [place] [address] 08/09/2024 10:00 AM EDT Office Visit Orthopaedics [facility] [address] [place] [address] Sami Angelo DO [address] [place] [address] 10/07/2024 2:40 PM EDT Office Visit Dermatology [facility] [address] [place] [address] Alden Ann PA-C [address] [place] [address] Scheduled Procedures Name Priority Associated Diagnoses Date/Ti [...] D LEVEL ONCE IN A LIFETIME-USE SMARTSET# 15590 Completed 01/28/2022, 02/21/2015, 12/30/2011 RETIRED - COLONOSCOPY-EVERY [...] this encounter Medical Devices Implanted Type Area Deep Fryer Assembler Device Identifier Shelf Expiration Date Model / Serial / Lot Screw Jami Lacie 3 Ti Set - [id number] Implanted:Qty: 6 on 03/10/2012 [place] [facility] Bilateral: Spine Lumbar LEVON : SPINE [id number] / / Screw Lacie Pa Ti 6.5x50mm - [id number] Implanted:Qty: 4 on 03/10/2012 at [facility] Bilateral: Spine Lumbar LEVON : SPINE [id number] / / [place] Xia3 7.0 X 40mm Screws Implanted:Qty: 2 on 03/10/2012 at [place] [facility] Bilateral: Spine Lumbar [id number] / / Shaun Lacie 3 Ti 6x70mm - [id number] Implanted:Qty: 1 on 03/10/2012 at [place] [facility] N/A: Spine Lumbar LEVON : SPINE [id number] / / Shaun Lacie 3 Ti Max 6x80mm - [id number] Implanted:Qty: 1 on 03/10/2012 at [place] [facility] N/A: Spine Lumbar LEVON : SPINE [id number] / / 9 X 25 X 4 - 8 Avs Wedge Nose Cage Implanted:Qty: 1 on 03/10/2012 at [place] [facility] N/A: Spine Lumbar [id number] / / Stent Synergy Xd Mr 2.23t16tt - [id number] Implanted:Qty: 1 on 09/20/2020 at [facility] [employer]ix [id number] 04/18/2022 [id number] 220 / / [id number] Stent Synergy Xd Mr 2.22m41wc - [id number] Implanted:Qty: 1 on 09/20/2020 at [facility] [employer] [id number] 04/25/2022 [id number] 220 / / [id number] Screw Locking 4.5mm 15mm - [id number] Implanted:Qty: 1 on 07/11/2022 by Sami Angelo DO at [place] [facility] Right: Shoulder [employer] 11/22/2025 108-4515 / / [id number] Bseplate Jasmeet Cmntlss W Scrw - [id number] Implanted:Qty: 1 on 07/11/2022 by Sami Angelo DO at [place] [facility] Right: Shoulder [employer] 03/24/2027 105-0029 / / [id number] Glenosphere Rev Thee W Scrw - [id number] Implanted:Qty: 1 on 07/11/2022 by Sami Angelo DO at [place] [facility] Right: Shoulder [employer] 04/24/2027 105-3610 / / [id number] Screw Locking 4.5mm 15mm - [id number] Implanted:Qty: 1 on 07/11/2022 by Sami Angelo DO at [place] [facility] Right: Shoulder [employer] 03/24/2027 108-4515 / / [id number] Screw Locking 4.5mm 20mm - [id number] Implanted:Qty: 1 on 07/11/2022 by Sami Angelo [...] / [id number] Screw Locking 4.5mm 20mm - [id number] Implanted:Qty: 1 on 07/11/2022 by Sami Angelo [...] Pace Spouse Health Care Agent Care Teams Belting And Webbing Inspector Relationship Specialty Start Date End Date Keagan Sanchez MD [address] [place] [address] PCP - General Family Medicine 10/07/23 documented as of this encounter
--- OUTSIDE RECORDS SUMMARY | 2024-03-06 12:37 | External Medical Summary | Summary of Care ---
Author Name Unknown Organization [facility] Address [address] [facility] [place] [address] Phone [phone] Care Team Providers Care Mgmt Analyst Name Role Phone Keagan Sanchez MD Primary Care Provider [phone] Reason for Visit * Reason Onset Date Comments [facility]: Maintenance 11/12/2023 Encounter Details Date Type Department Care Team (Late st Contact Info) Description 11/12/2023 Telephone [facility] [address] [place] [address] Services, Scheduling [address] [place] [address] [facility]: Maintenance Allergies Active Allergy Reactions Criticality Noted Date Comments Adhesive Tape 03/31/2023 Other Reaction(s): Tape- redness, paper tape/coban "ok", [id number] TAPE OK OR COBAN Clarithromycin High 03/31/2023 Other Reaction(s): Rash, diarrhea, RASH,DIARRHEA Duloxetine Hcl Flushing,Nausea/vomi tin g High 10/20/2019 Erythromycin Base Rash 03/14/2004 Orlistat Low 03/31/2023 Other Reaction(s): GI UPSET Penicillins Rash 03/14/2004 Prednisone Other (Please comment) High 10/10/2023 pancreatitis Sulfa Antibiotics Rash 03/14/2004 documented as of this encounter (statuses as of 11/12/2023) Medications Medication Sig Dispensed Refills Start Date [...] Oral Tablet (Zetia)Indications :Coronary artery disease involving [place] coronary artery of [place] heart with unstable angina pectoris (HCC) TAKE ONE TABLET BY MOUTH EVERY MORNING 90 Tablet 3 11/07/2023 11/06/2024 Active documented as of this encounter (statuses as of 11/12/2023) Active Problems Problem Noted Date Diagnosed Date [...] hypothyroidism 04/12/2021 Coronary artery disease invo lving k[place] coronary artery of [place] heart without angina pectoris 09/27/2020 S/P angioplasty [...] as of this encounter (statuses as of 11/12/2023) Resolved Problems Problem Noted Date Diagnosed Date [...] as of this encounter (statuses as of 11/12/2023) Immunizations Name Administration Dates Next Due COVID-19 [...] encounter Miscellaneous Notes * Telephone Encounter - Nola Stout OSA - 11/12/2023 9:50 AM EDT Incoming call from pt to confirm that appt on 11/16 works for her. documented in this encounter Plan of Treatment Upcoming Encounters Date Type Department Care Team (Late st Contact Info) Description 11/17/2023 2:00 PM EDT Home Visit [facility] [place] [address] [place] [address] Nika Guevara RN [address] [place] [address] 11/19/2023 10:00 AM EDT Office Visit Nutrition & Weight Management, [facility] [place] [address] [address] Anai Schultz PA-C [address] [address] 12/09/2023 10:00 AM EDT Home Visit [facility] [address] [place] [address] Oriana Isaacs PA-C [address] [place] [address] 12/22/2023 1:40 PM EDT Office Visit Family Practice [facility] [address] [place] [address] Keagan Sanchez MD [address] [place] [address] 06/07/2024 11:00 AM EDT Office Visit Cardiology [facility] [address] [phone] Angela Littlejohn CRNP [address] [place] [address] 08/09/2024 10:00 AM EDT Office Visit Orth[facility]edics [facility] [address] [place] [phone] Sami Angelo DO [address] [place] [address] 10/07/2024 2:40 PM EDT Office Visit Dermatology [facility] [address] [place] [address] Alden Ann PA-C [address] [place] [address] Scheduled Procedures Name Priority Associated Diagnoses Date/Ti me COLONOSCOPY FLEXIBLE PROXIMA L DIAGNOSTIC Recall Family history of colonic polyps Health Maintenance Due Date Last Done Comments HIV Screening 1976 Albumin/Creatinine Ratio 10/15/1979 Cologuard 2006 Sigmoidoscopy 2006 Zoster Vaccines (1 of 2) 10/15/2011 Fecal Occult Blood Test 08/03/2014 08/03/2013, 10/16 /2013 COVID-19 Vaccine ( season) 2022 12/24/2021, 07/11/2021, [...] D LEVEL ONCE IN A LIFETIME-USE SMARTSET# [id number] Completed 01/28/2022, 02/21/2015, 12/30/2011 RETIRED - COLONOSCOPY-EVERY [...] this encounter Medical Devices Implanted Type Area Plastic Card Grader Cardroom Device Identifier Shelf Expiration Date Model / Serial / Lot Screw Jami Lacie 3 Ti Set - [id number] Implanted:Qty: 6 on 03/10/2012 at [facility] Bilateral: Spine Lumbar LEVON : SPINE [id number] / / Screw Lacie Pa Ti 6.5x50mm - [id number] Implanted:Qty: 4 on 03/10/2012 at [facility] Bilateral: Spine Lumbar LEVON : SPINE [id number] / / [place] Xia3 7.0 X 40mm Screws Implanted:Qty: 2 on 03/10/2012 at [facility] Bilateral: Spine Lumbar [id number] / / Shaun Lacie 3 Ti 6x70mm - [id number] Implanted:Qty: 1 on 03/10/2012 at OR [facility] N/A: Spine Lumbar LEVON : SPINE [id number] / / Shaun Lacie 3 Ti Max 6x80mm - [id number] Implanted:Qty: 1 on 03/10/2012 at OR [facility] N/A: Spine Lumbar LEVON : SPINE [id number] / / 9 X 25 X 4 - 8 Avs Wedge Nose Cage Implanted:Qty: 1 on 03/10/2012 at OR [facility] N/A: Spine Lumbar [id number] / / Stent Synergy Xd Mr 2.72g44gi - [id number] Implanted:Qty: 1 on 09/20/2020 at [facility] Plibber [id number] 04/18/2022 [id number] 220 / / [id number] Stent Synergy Xd Mr 2.93d73ja - [id number] Implanted:Qty: 1 on 09/20/2020 at [facility] Plibber [id number] 04/25/2022 [id number] 220 / / [id number] Screw Locking 4.5mm 15mm - [id number] Implanted:Qty: 1 on 07/11/2022 by Sami Angelo DO at OR [facility] Right: Shoulder [employer] 11/22/2025 108-4515 / / [id number] Bseplate Jasmeet Cmntlss W Scrw - [id number] Implanted:Qty: 1 on 07/11/2022 by Sami Angelo DO at OR [facility] Right: Shoulder [employer] 03/24/2027 105-0029 / / [id number] Glenosphere Rev Thee W Scrw - [id number] Implanted:Qty: 1 on 07/11/2022 by Sami Angelo DO at OR [facility] Right: Shoulder [employer] 04/24/2027 105-3610 / / [id number] Screw Locking 4.5mm 15mm - [id number] Implanted:Qty: 1 on 07/11/2022 by Sami Angelo DO at OR [facility] Right: Shoulder [employer] 03/24/2027 108-4515 / / [id number] Screw Locking 4.5mm 20mm - [id number] Implanted:Qty: 1 on 07/11/2022 by Sami Angelo DO at OR [facility] Right: Shoulder [employer] 03/24/2027 108-4520 / / [id number] Humelock Ii Stem Ta6v Size 12 Cementless Implanted:Qty: 1 on 07/11/2022 by Sami Angelo DO at OR [facility] Right: Shoulder [employer] 10/22/2026 311-0212 / / [id number] Cortical Screw Ta6v, 5mm, L. 24mm Implanted:Qty: 1 on 07/11/2022 by Sami Angelo DO at OR [facility] Right: Shoulder [employer] 09/22/2023 107-4524 / / [id number] Humeral Cup 135/145 Degree, Standard, 36/+6 Implanted:Qty: 1 on 07/11/2022 by Sami Angelo DO at OR [facility] Right: Shoulder 02/21/2025 313-0706 / / [id number] Screw Locking 4.5mm 20mm - [id number] Implanted:Qty: 1 on 07/11/2022 by Sami Angelo DO at OR [facility] Right: Shoulder [employer] 03/24/2027 108-4520 [...] Agents on File Name Relationship Healthcare Agent [facility] p Communication Donny Pace Spouse Health Care Agent [id number] (Mobile) Care Teams Mgmt Analyst Relationship Specialty Start Date End Date Keagan Sanchez MD [address] [place] [phone] PCP - General Family Medicine 10/07/23 documented as of this encounter
--- OUTSIDE RECORDS SUMMARY | 2024-03-06 12:37 | External Medical Summary | Summary of Care ---
Author Name Unknown Organization [facility] Address [address] [facility] [place] [place] [address] Phone [phone] Care Team Providers Care Chip Machine Operator Name Role Phone Keagan Sanchez MD Primary Care Provider [phone] Reason for Visit * Reason Onset Date Comments [facility]: Acute 11/18/2023 Encounter Details Date Type Department Care Team (Late st Contact Info) Description 11/18/2023 Telephone [facility] [address] [facility] [place] [id number] Rachna Gama RN [address] [place] [facility] [place] [address] [facility]: Acute Allergies Active Allergy Reactions Criticality Noted Date Comments Adhesive Tape 03/31/2023 Other Reaction(s): Tape- redness, paper tape/coban "ok", [id number] TAPE OK OR COBAN Clarithromycin High 03/31/2023 [...] Oral Tablet (Zetia)Indications :Coronary artery disease involving [place] coronary artery of [place] heart with unstable angina pectoris (HCC) TAKE [...] hypothyroidism 04/12/2021 Coronary artery disease invo lving [place] coronary artery of [place] heart without angina pectoris 09/27/2020 S/P angioplasty [...] EDT [facility] Subprogram: Short-Term Management (less than 3 months) Recommendations: I would defer to the care team for recommendations on how to best manage this acute on chronic painfrom longstanding back issues. [place] [facility] role would not recommend advanced imaging and [...] by 9:45 AM) Anai Schultz PA-C Gastroenterology [phone] 11/19/2023 2:30 PM Coordinator, [facility] [phone] 11/20/2023 9:45 AM Coordinator, [facility] [phone] 12/09/2023 10:00 AM Oriana Isaacs PA-C [facility] [phone] 12/22/2023 1:40 PM (Arrive by 1:25 PM) Keagan Sanchez MD Family Medicine [phone] 12/29/2023 12:30 PM Nika Guevara RN [facility] [phone] 06/07/2024 11:00 AM (Arrive by 10:45 AM) Angela Littlejohn CRNP Cardiology [phone] 08/09/2024 10:00 AM Sami Angelo DO Orthopedics [phone] 10/07/2024 2:40 PM (Arrive by 2:25 PM) Alden Ann PA-C Dermatology [phone] * Telephone Encounter - Rachna Gama RN - 11/18/2023 2:02 PM EDT [facility] Acute Call Date: 11/18/2023 Time: 2:02 PM Name: Shalini Pace : 1960 Caller: Patient HPI: Shalini Pace is a 63 year old old female that is calling [facility] to report: She is calling as she was instructed by Nika RAY [facility]. She was instructed to call [facility] for worsening back pain. Seen by RNCM [...] back for local relief of pain. Call [facility] for worsening sxs Prone to falls- use walker at al times for ambulation. May need further diagnostics. Will call back with recommendations. Treatment/Plan: (need to report) Level of call: Acute Appointment scheduled for same day: No Routing to [facility] and Team for further recommednations. Will include Keagan Sanchez MD. PC's scheduled. Rachna Gama RN [facility] Intake [phone] documented in this encounter Plan of Treatment Upcoming Encounters Date Type Department Care Team ([facility] st Contact Info) Description 11/19/2023 10:00 AM EDT Office Visit Nutrition & Weight Management, [facility] [address] [address] Anai Schultz PA-C [address] [place] [address] 11/19/2023 2:30 PM EDT Scheduled Telephone [facility], [facility] [address] [place] [address] Coordinator, [facility] [address] [place] [address] 11/20/2023 9:45 AM EDT Scheduled Telephone [facility] [address] [place] [address] Coordinator, [facility] [address] [place] [address] 12/09/2023 10:00 AM EDT Home Visit [facility] [address] [place] [address] Oriana Isaacs PA-C [address] [place] [address] 12/22/2023 1:40 PM EDT Office Visit [address] [address] Keagan Sanchez MD [address] [place] [address] 12/29/2023 12:30 PM EDT Home Visit [facility] [address] [place] [address] Nika Guevara RN [address] [place] [address] 06/07/2024 11:00 AM EDT Office Visit Cardiology [facility] [address] [facility] [address] [place] [address] Angela Littlejohn CRNP [address] [place] [address] 08/09/2024 10:00 AM EDT Office Visit Orthopaedics [facility] [address] [place] [address] Sami Angelo DO 16 [place] [address] 10/07/2024 2:40 PM EDT Office Visit Dermatology [facility] [address] [place] [address] Alden Ann PA-C [address] [place] [address] Scheduled Procedures Name Priority Associated Diagnoses Date/Ti [...] D LEVEL ONCE IN A LIFETIME-USE SMARTSET# 11169 Completed 01/28/2022, 02/21/2015, 12/30/2011 RETIRED - COLONOSCOPY-EVERY [...] this encounter Medical Devices Implanted Type Area Hardening Machine Operator Helper Device Identifier Shelf Expiration Date Model / Serial / Lot Screw Jami Lacie 3 Ti Set - [id number] Implanted:Qty: 6 on 03/10/2012 [place] [facility] [place]ilateral: Spine Lumbar LEVON : SPINE [id number] / / Screw Lacie Pa Ti 6.5x50mm - [id number] Implanted:Qty: 4 on 03/10/2012 at [facility] Bilateral: Spine Lumbar LEVON : SPINE [id number] / / [place] Xia3 7.0 X 40mm Screws Implanted:Qty: 2 on 03/10/2012 at [facility] Bilateral: Spine Lumbar [id number] / / Shaun Lacie 3 Ti 6x70mm - [id number] Implanted:Qty: 1 on 03/10/2012 at [place] [facility] N/A: Spine Lumbar LEVON : SPINE [id number] / / Shaun Lacie 3 Ti Max 6x80mm - [id number] Implanted:Qty: 1 on 03/10/2012 at [place] [facility] N/A: Spine Lumbar LEVON : SPINE [id number] / / 9 X 25 X 4 - 8 Avs Wedge Nose Cage Implanted:Qty: 1 on 03/10/2012 at [place] [facility] N/A: Spine Lumbar [id number] / / Stent Synergy Xd Mr 2.33c20rm - [id number] Implanted:Qty: 1 on 09/20/2020 at [facility] Cubikal [id number] 04/18/2022 [id number] 220 / / [id number] Stent Synergy Xd Mr 2.01h82xi - [id number] Implanted:Qty: 1 on 09/20/2020 at [facility] Cub[employer] [id number] 04/25/2022 [id number] 220 / / [id number] Screw Locking 4.5mm 15mm - [id number] Implanted:Qty: 1 on 07/11/2022 by Sami Angelo DO at [facility] Right: Shoulder [employer] 11/22/2025 108-4515 / / [id number] Bseplate Jasmeet Cmntlss W Scrw - [id number] Implanted:Qty: 1 on 07/11/2022 by Sami Angelo DO at [facility] Right: Shoulder [employer] 03/24/2027 105-0029 / / [id number] Glenosphere Rev Thee W Scrw - [id number] Implanted:Qty: 1 on 07/11/2022 by Sami Angelo DO at [facility] Right: Shoulder [employer] 04/24/2027 105-3610 / / T1980 Screw Locking 4.5mm 15mm - [id number] Implanted:Qty: 1 on 07/11/2022 by Sami Angelo DO at [place] [facility] Right: Shoulder [employer] 03/24/2027 108-4515 / / [id number] Screw Locking 4.5mm 20mm - [id number] Implanted:Qty: 1 on 07/11/2022 by Sami Angelo DO at [facility] Right: Shoulder [employer] 03/24/2027 108-4520 / / [id number] Humelock Ii Stem Ta6v Size 12 Cementless Implanted:Qty: 1 on 07/11/2022 by Sami Angelo DO at [place] [facility] Right: Shoulder [employer] 10/22/2026 311-0212 / / [id number] Cortical Screw Ta6v, 5mm, L. 24mm Implanted:Qty: 1 on 07/11/2022 by Sami Angelo DO at [place] [facility] Right: Shoulder [employer] 09/22/2023 107-4524 / / [id number] Humeral Cup 135/145 Degree, Standard, 36/+6 Implanted:Qty: 1 on 07/11/2022 by Sami Angelo DO at [place] [facility] Right: Shoulder 02/21/2025 313-0706 / / [id number] Screw Locking 4.5mm 20mm - [id number] Implanted:Qty: 1 on 07/11/2022 by Sami Angelo DO at [place] [facility] Right: Shoulder [employer] 03/24/2027 108-4520 [...] Agents on File Name Relationship Healthcare Agent [facility] p Communication Donny Pace Spouse Health Care Agent Care Teams Chip Machine Operator Relationship Specialty Start Date End Date Keagan Sanchez MD [address] [place] [phone] PCP - General Family Medicine 10/07/23 documented as of this encounter
--- OUTSIDE RECORDS SUMMARY | 2024-03-06 12:37 | External Medical Summary | Summary of Care ---
Author Name Unknown Organization [facility] Address [address] [facility] [place] [address] Phone [phone] Care Team Providers Care Mid Wife Name Role Phone Keagan Sanchez MD Primary Care Provider [phone] Reason for Visit * Reason Onset Date Comments [facility]: Acute 11/18/2023 Encounter Details Date Type Department Care Team (Late st Contact Info) Description 11/18/2023 Telephone [facility], [facility] [address] [facility] [place] [id number] Rachna Gama RN [address] [place] [facility] [place] [address] [facility]: Acute Allergies Active Allergy Reactions Criticality Noted Date Comments Adhesive Tape 03/31/2023 Other Reaction(s): Tape- redness, paper tape/coban "ok", [id number] TAPE OK OR COBAN Clarithromycin High 03/31/2023 [...] Oral Tablet (Zetia)Indications :Coronary artery disease involving [place] coronary artery of [place] heart with unstable angina pectoris (HCC) TAKE [...] hypothyroidism 04/12/2021 Coronary artery disease invo lving [place] coronary artery of [place] heart without angina pectoris 09/27/2020 S/P angioplasty [...] Instructed her to f/u with PCP and [facility] team will need to review the situation. FCC scheduled for tomorrow. Pt is discourtaged that no PC received back today. Instructd her to call Dr Sanchez tomorrow to f/u. Rachna Gama RN [facility] Intake [phone] * Telephone Encounter - Dmitry Haley DO - 11/18/2023 3:57 PM EDT [facility] Remote Medical Command Roberto Shaffer Subprogram: Short-Term Management (less than 3 months) Recommendations: I would defer to the care team for recommendations on how to best manage this acute on chronic painfrom longstanding back issues. In the [facility] role would not recommend advanced imaging and [...] by 9:45 AM) Anai Schultz PA-C Gastroenterology [phone] 11/19/2023 2:30 PM Coordinator, [facility] [phone] 11/20/2023 9:45 AM Coordinator, [facility] [phone] 12/09/2023 10:00 AM Oriana Isaacs PA-C [facility] [phone] 12/22/2023 1:40 PM (Arrive by 1:25 PM) Keagan Sanchez MD Family Medicine [phone] 12/29/2023 12:30 PM Nkia Guevara RN [facility] [phone] 06/07/2024 11:00 AM (Arrive by 10:45 AM) Angela Littlejohn CRNP Cardiology [phone] 08/09/2024 10:00 AM Sami Angelo DO Orthopedics [phone] 10/07/2024 2:40 PM (Arrive by 2:25 PM) Alden Ann PA-C Dermatology [phone] * Telephone Encounter - Rachna Gama RN - 11/18/2023 2:02 PM EDT [facility] senior web services developer Acute Call Date: 11/18/2023 Time: 2:02 PM Name: Shalini Pace : 1960 Caller: Patient HPI: Shalini Pace is a 63 year old old female that is calling [facility] to report: She is calling as she was instructed by Nika RAY [facility]. She was instructed to call [facility] for worsening back pain. Seen by PARVIN yesterday. Low back pain getting progressively worse. [...] back for local relief of pain. Call [facility] for worsening sxs Prone to falls- use walker at al times for ambulation. May need further diagnostics. Will call back with recommendations. Treatment/Plan: (need to report) Level of call: Acute Appointment scheduled for same day: No Routing to [facility] and Team for further recommednations. Will include Keagan Sanchez MD. PC's scheduled. Rachna Gama RN [facility] Intake [phone] documented in this encounter Plan of Treatment Upcoming Encounters Date Type Department Care Team (Late st Contact Info) Description 11/19/2023 10:00 AM EDT Office Visit Nutrition & Weight Management, [facility] [address] [facility] [place] [address] Anai Schultz PA-C [address] [facility] [place] [address] 11/19/2023 2:30 PM EDT Scheduled Telephone [facility], [facility] [address] [place] [address] Coordinator, [facility] [address] [place] [address] 11/20/2023 9:45 AM EDT Scheduled Telephone [facility], [place] [facility] [address] [place] [address] [address], [facility] [place] [address] [place] [address] 12/09/2023 10:00 AM EDT Home Visit [facility], [facility] [address] [place] [address] Oriana Isaacs PA-C [address] [place] [address] 12/22/2023 1:40 PM EDT Office Visit Family Practice [facility] [address] [place] [address] Keagan Sanchez MD [address] [place] [address] 12/29/2023 12:30 PM EDT Home Visit [facility], [facility] [address] [place] [address] Nika Guevara RN [address] [place] [address] 06/07/2024 11:00 AM EDT Office Visit Cardiology [address] [place] [address] Angela Littlejohn CRNP [address] [place] [address] 08/09/2024 10:00 AM EDT Office Visit Orthopaedics Andrez Alejandre 16 [place] [address] Sami Angelo DO 16 [place] [address] 10/07/2024 2:40 PM EDT Office Visit Dermatology [facility] [address] [place] [address] Alden Ann PA-C [address] [place] [phone] Scheduled Procedures Name Priority Associated Diagnoses Date/Ti [...] D LEVEL ONCE IN A LIFETIME-USE SMARTSET# 72366 Completed 01/28/2022, 02/21/2015, 12/30/2011 RETIRED - COLONOSCOPY-EVERY [...] this encounter Medical Devices Implanted Type Area Health Policy Manager Device Identifier Shelf Expiration Date Model / Serial / Lot Screw Jami Lacie 3 Ti Set - [id number] Implanted:Qty: 6 on 03/10/2012 [place] [facility] Bilateral: Spine Lumbar LEVON : SPINE [id number] / / Screw Lacie Pa Ti 6.5x50mm - [id number] Implanted:Qty: 4 on 03/10/2012 at [place] [facility] Bilateral: Spine Lumbar LEVON : SPINE [id number] / / Elderton Xia3 7.0 X 40mm Screws Implanted:Qty: 2 on 03/10/2012 at [place] [facility] Bilateral: Spine Lumbar [id number] / / Shaun Lacie 3 Ti 6x70mm - [id number] Implanted:Qty: 1 on 03/10/2012 at [place] [facility] N/A: Spine Lumbar LEVON : SPINE [id number] / / Shaun Lacie 3 Ti Max 6x80mm - [id number] Implanted:Qty: 1 on 03/10/2012 at [place] [facility] N/A: Spine Lumbar LEVON : SPINE [id number] / / 9 X 25 X 4 - 8 Avs Wedge Nose Cage Implanted:Qty: 1 on 03/10/2012 at [place] [facility] [place] N/A: Spine Lumbar [id number] / / Stent Synergy Xd Mr 2.43v20pp - [id number] Implanted:Qty: 1 on 09/20/2020 at [facility] [place] [employer] [id number] 04/18/2022 [id number] 220 / / [id number] Stent Synergy Xd Mr 2.21y28dw - [id number] Implanted:Qty: 1 on 09/20/2020 at [facility] [place] [employer] [id number] 04/25/2022 [id number] 220 / / [id number] Screw Locking 4.5mm 15mm - [id number] Implanted:Qty: 1 on 07/11/2022 by Sami Angelo DO at [place] [facility] Right: Shoulder [employer] 11/22/2025 108-4515 / / [id number] Bseplate Jasmeet Cmntlss W Scrw - [id number] Implanted:Qty: 1 on 07/11/2022 by Sami Angelo DO at [place] [facility] [place] Right: Shoulder [employer] 03/24/2027 105-0029 / / [id number] Glenosphere Rev Thee W Scrw - [id number] Implanted:Qty: 1 on 07/11/2022 by Sami Angelo DO at [place] [facility] [place] Right: Shoulder [employer] 04/24/2027 105-3610 / / [id number] Screw Locking 4.5mm 15mm - [id number] Implanted:Qty: 1 on 07/11/2022 by Sami Angelo DO at [place] [facility] Right: Shoulder [employer] 03/24/2027 108-4515 / / [id number] Screw Locking 4.5mm 20mm - [id number] Implanted:Qty: 1 on 07/11/2022 by Sami Angelo DO at [place] [facility] Right: Shoulder [employer] 03/24/2027 108-4520 / / [id number] Humelock Ii Stem Ta6v Size 12 Cementless Implanted:Qty: 1 on 07/11/2022 by Sami Angelo DO at [place] [facility] Right: Shoulder [employer] 10/22/2026 311-0212 / / [id number] Cortical Screw Ta6v, 5mm, L. 24mm Implanted:Qty: 1 on 07/11/2022 by Sami Angelo DO at [place] [facility] Right: Shoulder [employer] 09/22/2023 107-4524 / / [id number] Humeral Cup 135/145 Degree, Standard, 36/+6 Implanted:Qty: 1 on 07/11/2022 by Sami Angelo, DO at [place] [facility] Right: Shoulder 02/21/2025 313-0706 / / [id number] Screw Locking 4.5mm 20mm - [id number] Implanted:Qty: 1 on 07/11/2022 by Sami Angelo, DO at [place] [facility] [place] Right: Shoulder [employer] 03/24/2027 108-4520 [...] Agents on File Name Relationship Healthcare Agent [facility] Communication Donny Ambrociosuzie Spouse Health Care Agent Care Teams Mid Wife Relationship Specialty Start Date End Date Keagan Sanchez MD [address] [place] [address] PCP - General Family Medicine 10/07/23 documented as of this encounter
--- OUTSIDE RECORDS SUMMARY | 2024-03-06 12:37 | External Medical Summary | Summary of Care ---
Author Name Unknown Organization [facility] Address [address] [facility] [place] [address] Phone [phone] Care Team Providers Care Digital Watch Assembler Name Role Phone Keagan Sanchez MD Primary Care Provider [phone] Reason for Visit * Reason Onset Date Comments [facility]: Acute 11/18/2023 Encounter Details Date Type Department Care Team (Late st Contact Info) Description 11/18/2023 Telephone [facility], [facility] [address] [facility] [place] [id number] Rachna Gama RN [address] [place] [facility] [place] [address] [facility]: Acute Allergies Active Allergy Reactions Criticality Noted Date Comments Adhesive Tape 03/31/2023 Other Reaction(s): Tape- redness, paper tape/coban "ok", [id number] TAPE OK OR COBAN Clarithromycin High 03/31/2023 [...] Oral Tablet (Zetia)Indications :Coronary artery disease involving [place] coronary artery of [place] heart with unstable angina pectoris (HCC) TAKE [...] hypothyroidism 04/12/2021 Coronary artery disease invo lving [place] coronary artery of [place] heart without angina pectoris 09/27/2020 S/P angioplasty [...] Gama RN - 11/18/2023 2:02 PM EDT [facility]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 She was instructed to call [facility] for worsening back pain. Seen by [...] for same day: No Routing to [facility] and Team for further recommednations. Will include Keagan Sanchez MD. PC's scheduled. Rachna Gama RN [facility] Intake [phone] documented in this encounter Plan of Treatment Upcoming Encounters Date Type Department Care Team (Late st Contact Info) Description 11/19/2023 10:00 AM EDT Office Visit Nutrition & Weight Management, [facility] [address] [place] [address] Anai Schultz PA-C [address] [place] [address] 11/19/2023 2:30 PM EDT Scheduled Telephone [facility], [facility] [address] [place] [address] Coordinator, [facility] [address] [place] [address] 11/20/2023 9:45 AM EDT Scheduled Telephone [facility], [facility] [address] [place] [address] Coordinator, [facility] [address] [facility] [address] 12/09/2023 10:00 AM EDT Home Visit [facility], [facility] [address] [place] [address] Oriana Isaacs PARalfC [address] [place] [address] 12/22/2023 1:40 PM EDT Office Visit [address] [phone] Keagan Sanchez MD 68 [place] [address] 12/29/2023 12:30 PM EDT Home Visit [facility], [facility] [address] [place] [address] Nika Guevara RN 240[address] [place] [address] 06/07/2024 11:00 AM EDT Office Visit Cardiology [facility] [address] [facility] [address] [place] [address] Angela Littlejohn CRNP 1020 [place] [address] 08/09/2024 10:00 AM EDT Office Visit Orthopaedics [facility] 16 [place] [address] Sami Angelo DO 16 [place] [address] 10/07/2024 2:40 PM EDT Office Visit Dermatology [facility] 68 [place] [address] Alden Ann PA-C 68 [place], [place] [phone] Scheduled Procedures Name Priority Associated Diagnoses Date/Ti [...] D LEVEL ONCE IN A LIFETIME-USE SMARTSET# 72622 Completed 01/28/2022, 02/21/2015, 12/30/2011 RETIRED - COLONOSCOPY-EVERY [...] this encounter Medical Devices Implanted Type Area Janitorial Maintenance Worker Device Identifier Shelf Expiration Date Model / Serial / Lot Screw Jami Lacie 3 Ti Set - [id number] Implanted:Qty: 6 on 03/10/2012 at [place] [facility] Bilateral: Spine Lumbar LEVON : SPINE [id number] / / Screw Lacie Pa Ti 6.5x50mm - [id number] Implanted:Qty: 4 on 03/10/2012 at [facility] Bilateral: Spine Lumbar LEVON : SPINE [id number] / / Levon Xia3 7.0 X 40mm Screws Implanted:Qty: 2 on 03/10/2012 at OR [facility] Bilateral: Spine Lumbar [id number] / / Shaun Lacie 3 Ti 6x70mm - [id number] Implanted:Qty: 1 on 03/10/2012 at OR [facility] N/A: Spine Lumbar LEVON : SPINE [id number] / / Shaun Lacie 3 Ti Max 6x80mm - [id number] Implanted:Qty: 1 on 03/10/2012 at OR [facility] N/A: Spine Lumbar LEVON : SPINE [id number] / / 9 X 25 X 4 - 8 Avs Wedge Nose Cage Implanted:Qty: 1 on 03/10/2012 at OR [facility] N/A: Spine Lumbar [id number] / / Stent Synergy Xd Mr 2.67m61xe - [id number] Implanted:Qty: 1 on 09/20/2020 at [facility] [employer] [id number] 04/18/2022 [id number] 220 / / [id number] Stent Synergy Xd Mr 2.45p25cv - [id number] Implanted:Qty: 1 on 09/20/2020 at [facility] [employer] [id number] 04/25/2022 [id number] 220 / / [id number] Screw Locking 4.5mm 15mm - [id number] Implanted:Qty: 1 on 07/11/2022 by Sami Angelo DO at OR [facility] Right: Shoulder [employer] 11/22/2025 108-4515 / / [id number] Bseplate Jasmeet Cmntlss W Scrw - [id number] Implanted:Qty: 1 on 07/11/2022 by Sami Angelo DO at [facility] Right: Shoulder [employer] 03/24/2027 105-0029 / / [id number] Glenosphere Rev Thee W Scrw - [id number] Implanted:Qty: 1 on 07/11/2022 by Sami Angelo DO at OR [facility] Right: Shoulder [employer] 04/24/2027 105-3610 / / T1980 Screw Locking 4.5mm 15mm - [id number] Implanted:Qty: 1 on 07/11/2022 by Sami Angelo DO at OR [facility] Right: Shoulder [employer] 03/24/2027 108-4515 / / [id number] Screw Locking 4.5mm 20mm - [id number] Implanted:Qty: 1 on 07/11/2022 by Sami Angelo DO at OR [facility] Right: Shoulder [employer] 03/24/2027 108-4520 / / [id number] Humelock Ii Stem Ta6v Size 12 Cementless Implanted:Qty: 1 on 07/11/2022 by Sami Angelo DO at OR [facility] Right: Shoulder [employer] 10/22/2026 311-0212 / / [id number] Cortical Screw Ta6v, 5mm, L. 24mm Implanted:Qty: 1 on 07/11/2022 by Sami Angelo DO at OR [facility] Right: Shoulder [employer] 09/22/2023 107-4524 / / [id number] Humeral Cup 135/145 Degree, Standard, 36/+6 Implanted:Qty: 1 on 07/11/2022 by Sami Angelo DO at OR [facility] Right: Shoulder 02/21/2025 313-0706 / / [id number] Screw Locking 4.5mm 20mm - [id number] Implanted:Qty: 1 on 07/11/2022 by Sami Angelo DO at OR [facility] Right: Shoulder [employer] 03/24/2027 108-4520 [...] Agents on File Name Relationship Healthcare Agent [facility] Communication Donny Pace Spouse Health Care Agent Care Teams Digital Watch Assembler Relationship Specialty Start Date End Date Keagan Sanchez MD [address] [place] [address] PCP - General Family Medicine 10/07/23 documented as of this encounter
--- OUTSIDE RECORDS SUMMARY | 2024-03-06 12:38 | External Medical Summary | Summary of Care ---
Author Name Unknown Organization [facility] Address [address] [facility] [address] Phone [phone] Care Team Providers Care Jammer Hooker Name Role Phone Keagan Sanchez MD Primary Care Provider [phone] Reason for Visit * Reason Comments Medication Refill Encounter Details Date Type Department Care Team ([facility] st Contact Info) Description 11/06/2023 Refill Cardiology [address] [place] [address] Eliel Ricci CRNP [address] [place] [address] Coronary artery disease involving mi'kmaq coronary artery of mi'kmaq heart with unstable angina pectoris (HCC)* Allergies Active Allergy Reactions Criticality Noted Date Comments Adhesive Tape 03/31/2023 Other Reaction(s): Tape- redness, paper tape/coban "ok", [id number] TAPE OK OR COBAN Clarithromycin High 03/31/2023 Other Reaction(s): Rash, diarrhea, RASH,DIARRHEA Duloxetine Hcl Flushing,Nausea/vomi tin g High 10/20/2019 Erythromycin Base Rash 03/14/2004 Orlistat Low 03/31/2023 Other Reaction(s): GI UPSET Penicillins Rash 03/14/2004 Prednisone Other (Please comment) High 10/10/2023 pancreatitis Sulfa Antibiotics Rash 03/14/2004 documented as of this encounter (statuses as of 11/07/2023) Medications Medication Sig Dispensed Refills Start Date [...] severe constipation 237 mL 1 11/03/2023 Active Ezetimibe 10 MG Oral Tablet (Zetia)Indication s:Coronary artery disease involving mi'kmaq coronary artery of mi'kmaq heart with unstable angina pectoris (HCC) TAKE ONE TABLET BY MOUTH EVERY MORNING 90 Tablet 3 11/07/2023 5 Active Ezetimibe 10 MG Oral Tablet (Zetia) TAKE ONE TABLET BY MOUTH EVERY MORNING 90 Tablet 3 11/07/2022 4 Discontinue d(Refill) documented as of this encounter (statuses as of 11/07/2023) Active Problems Problem Noted Date Diagnosed Date [...] hypothyroidism 04/12/2021 Coronary artery disease invo lving mi'kmaq coronary artery of mi'kmaq heart without angina pectoris 09/27/2020 S/P angioplasty [...] as of this encounter (statuses as of 11/07/2023) Resolved Problems Problem Noted Date Diagnosed Date [...] as of this encounter (statuses as of 11/07/2023) Immunizations Name Administration Dates Next Due COVID-19 [...] encounter Miscellaneous Notes * Telephone Encounter - Eliel Ricci CRNP - 11/07/2023 5:24 AM EDT Signed Prescriptions: Disp Refills Ezetimibe 10 MG Oral Tablet (Zetia) 90 Tab*3 Sig: TAKE ONE TABLET BY MOUTH EVERY MORNING Authorizing Provider: ELIEL RICCI * Telephone Encounter - Tanisha Blas LPN - 11/06/2023 10:22 AM EDTPending Prescriptions: Disp Refills Ezetimibe 10 MG Oral Tablet (Zetia) 90 Tab*3 Sig: TAKE ONE TABLET BY MOUTH EVERY MORNING documented in this encounter Plan of Treatment Upcoming Encounters Date Type Department Care Team (Late st Contact Info) Description 11/19/2023 10:00 AM EDT Office Visit Nutrition & Weight Management, [facility] [address] [place] [address] Anai Schultz PA-C [address] [place] [address] 12/22/2023 1:40 PM EDT Office Visit Family [address] [phone] Keagan Sanchez MD [address] [place] [address] 08/09/2024 10:00 AM EDT Office Visit Orthopaedics Andrez Alejandre 16 [place] [address] Sami Angelo DO 16 [place] [address] 10/07/2024 2:40 PM EDT Office Visit Dermatology [facility] 68 [place] [address] Alden Ann PA-C [address] [place] [address] Scheduled Procedures Name Priority Associated Diagnoses [...] D LEVEL ONCE IN A LIFETIME-USE SMARTSET# 91565 Completed 01/28/2022, 02/21/2015, 12/30/2011 RETIRED - COLONOSCOPY-EVERY [...] this encounter Medical Devices Implanted Type Area Pickle Maker Device Identifier Shelf Expiration Date Model / Serial / Lot Screw Jami Lacie 3 Ti Set - [id number] Implanted:Qty: 6 on 03/10/2012 at [place] [facility] Bilateral: Spine Lumbar LEVON : SPINE [id number] / / Screw Lacie Pa Ti 6.5x50mm - [id number] Implanted:Qty: 4 on 03/10/2012 at [facility] Bilateral: Spine Lumbar LEVON : SPINE [id number] / / Levon Xia3 7.0 X 40mm Screws Implanted:Qty: 2 on 03/10/2012 at [facility] Bilateral: Spine Lumbar [id number] / / Shaun Lacie 3 Ti 6x70mm - [id number] Implanted:Qty: 1 on 03/10/2012 at OR [facility] N/A: Spine Lumbar LEVON : SPINE [id number] / / Shaun Lacie 3 Ti Max 6x80mm - [id number] Implanted:Qty: 1 on 03/10/2012 at [place] [facility] N/A: Spine Lumbar LEVON : SPINE [id number] / / 9 X 25 X 4 - 8 Avs Wedge Nose Cage Implanted:Qty: 1 on 03/10/2012 at [facility] N/A: Spine Lumbar [id number] / / Stent Synergy Xd Mr 2.97l31uk - [id number] Implanted:Qty: 1 on 09/20/2020 at [facility] [employer] [id number] 04/18/2022 [id number] 220 / / [id number] Stent Synergy Xd Mr 2.46v51lx - [id number] Implanted:Qty: 1 on 09/20/2020 at [facility] [employer] [id number] 04/25/2022 [id number] 220 / / [id number] Screw Locking 4.5mm 15mm - [id number] Implanted:Qty: 1 on 07/11/2022 by Sami Angelo DO at [facility] Right: Shoulder [employer] 11/22/2025 108-4515 / / [id number] Bseplate Jasmeet Cmntlss W Scrw - [id number] Implanted:Qty: 1 on 07/11/2022 by Sami Angelo DO at OR [facility] Right: Shoulder [employer] 03/24/2027 105-0029 / / [id number] [employer] Rev Thee W Scrw - [id number] Implanted:Qty: 1 on 07/11/2022 by Sami Angelo DO at OR [facility] Right: Shoulder [employer] 04/24/2027 105-3610 / / [id number] Screw Locking 4.5mm 15mm - [id number] Implanted:Qty: 1 on 07/11/2022 by Sami Angelo DO at OR [facility] Right: Shoulder [employer] 03/24/2027 108-4515 / / [id number] Screw Locking 4.5mm 20mm - [id number] Implanted:Qty: 1 on 07/11/2022 by Sami Angelo [...] / [id number] Screw Locking 4.5mm 20mm - [id number] Implanted:Qty: 1 on 07/11/2022 by Sami Angelo DO at OR [facility] Right: Shoulder [employer] 03/24/2027 108-4520 / / [id number] documented as of this encounter Visit Diagnoses Diagnosis Coronary artery disease involving mi'kmaq coronary artery of mi'kmaq heart with unstable angina pectoris (HCC)- Primary documented in this encounter Advance Directives [...] Agents on File Name Relationship Healthcare Agent [facility] Communication Donny Pace Spouse Health Care Agent Care Teams Jammer Hooker Relationship Specialty Start Date End Date Keagan Sanchez MD [address] [place] [address] PCP - General Family Medicine 10/07/23 documented as of this encounter
--- OUTSIDE RECORDS SUMMARY | 2024-03-06 12:38 | External Medical Summary | Summary of Care ---
Author Name Unknown Organization [facility] Address [address] [place] [address] Phone [phone] Care Team Providers Care Peripheral Equipment Operator Name Role Phone Keagan Sanchez MD Primary Care Provider [phone] Reason for Visit * Reason Onset Date Comments Appointment 11/07/2023 Encounter Details Date Type Department Care Team (Late st Contact Info) Description 11/07/2023 Telephone [facility] [place] [address] [place] [address] Services, Scheduling [address] [place] [address] Appointment Allergies Active Allergy Reactions Criticality Noted Date Comments Adhesive Tape 03/31/2023 Other Reaction(s): Tape- redness, paper tape/coban "ok", [id number] TAPE OK OR COBAN Clarithromycin High 03/31/2023 Other Reaction(s): Rash, diarrhea, RASH,DIARRHEA Duloxetine Hcl Flushing,Nausea/vomi tin g High 10/20/2019 Erythromycin Base Rash 03/14/2004 Orlistat Low 03/31/2023 Other Reaction(s): GI UPSET Penicillins Rash 03/14/2004 Prednisone Other (Please comment) High 10/10/2023 pancreatitis Sulfa Antibiotics Rash 03/14/2004 documented as of this encounter (statuses as of 11/10/2023) Medications Medication Sig Dispensed Refills Start Date [...] Tablet (Zetia)Indications :Coronary artery disease involving [place] coronary artery of [place] heart with unstable angina pectoris (HCC) TAKE ONE TABLET BY MOUTH EVERY MORNING 90 Tablet 3 11/07/2023 11/06/2024 Active documented as of this encounter (statuses as of 11/10/2023) Active Problems Problem Noted Date Diagnosed Date [...] 04/12/2021 Coronary artery disease invo lving [place] coronary artery of [place] heart without angina pectoris 09/27/2020 S/P angioplasty [...] as of this encounter (statuses as of 11/10/2023) Resolved Problems Problem Noted Date Diagnosed Date [...] as of this encounter (statuses as of 11/10/2023) Immunizations Name Administration Dates Next Due COVID-19 [...] encounter Miscellaneous Notes * Telephone Encounter - Riri Roldan RN - 11/10/2023 10:23 AM EDT Patient returning call to [facility]. [facility] services thoroughly discussed. Patient previously had [facility] services and is agreeable to re-enrollment. Message sent to DEANA Stout to schedule new enrollment visits and notify patient of appt date/time. Riri RAPP, RN [facility] stone finisher Navigator * Telephone Encounter - Nola Stout OSA - 11/07/2023 3:52 PM EDT [facility] Engagement Attempt Engagement: Engagement Attempt 1: Unable to contact Engagement Attempt 2: No data was found Home Information: No data was found Advance Care Planning (ACP): No data was found Has Living Will or Advance Directive: No data was found Anticipated Sub-Program: Short-Term Management (less than 3 months) Confirmation of Sub-Program Type (by care team leader/research psychologist): No data was found Handoff Information: Current care team notified via: No data was found Current telemonitoring equipment: No data was found documented in this encounter Plan of Treatment Upcoming Encounters Date Type Department Care Team (Late st Contact Info) Description 11/19/2023 10:00 AM EDT Office Visit Nutrition & Weight Management, [facility] [address] [place] [address] Anai Schultz PA-C [address] [place] [address] 12/22/2023 1:40 PM EDT Office Visit Family Practice [facility] [address] [place] [address] Keagan Sanchez MD [address] [place] [address] 08/09/2024 10:00 AM EDT Office Visit Orthopaedics [place] [place] [address] [place] [address] Sami Angelo DO [address] [place] [address] 10/07/2024 2:40 PM EDT Office Visit Dermatology [facility] [address] [place] [address] lAden Ann PA-C [address] [place] [address] Scheduled Procedures Name Priority Associated [...] D LEVEL ONCE IN A LIFETIME-USE SMARTSET# 13333 Completed 01/28/2022, 02/21/2015, 12/30/2011 RETIRED - COLONOSCOPY-EVERY [...] this encounter Medical Devices Implanted Type Area 3D Designer Device Identifier Shelf Expiration Date Model / Serial / Lot Screw Jami Lacie 3 Ti Set - [id number] Implanted:Qty: 6 on 03/10/2012 at [place] [facility] Bilateral: Spine Lumbar LEVON : SPINE [id number] / / Screw Lacie Pa Ti 6.5x50mm - [id number] Implanted:Qty: 4 on 03/10/2012 at [place] [facility] Bilateral: Spine Lumbar LEVON : SPINE [id number] / / [place] Xia3 7.0 X 40mm Screws Implanted:Qty: 2 on 03/10/2012 at [facility] Bilateral: Spine Lumbar [id number] / / Shaun Lacie 3 Ti 6x70mm - [id number] Implanted:Qty: 1 on 03/10/2012 at OR [facility] N/A: Spine Lumbar LEOVN : SPINE [id number] / / Shaun Lacie 3 Ti Max 6x80mm - [id number] Implanted:Qty: 1 on 03/10/2012 at OR [facility] N/A: Spine Lumbar LEVON : SPINE [id number] / / 9 X 25 X 4 - 8 Avs Wedge Nose Cage Implanted:Qty: 1 on 03/10/2012 at OR [facility] N/A: Spine Lumbar [id number] / / Stent Synergy Xd Mr 2.16c47mh - [id number] Implanted:Qty: 1 on 09/20/2020 at [facility] Jamgo [id number] 04/18/2022 [id number] 220 / / [id number] Stent Synergy Xd Mr 2.10q72yk - [id number] Implanted:Qty: 1 on 09/20/2020 at [facility] Jamgo [id number] 04/25/2022 [id number] 220 / / [id number] Screw Locking 4.5mm 15mm - [id number] Implanted:Qty: 1 on 07/11/2022 by Sami Angelo DO at [facility] Right: Shoulder [employer] 11/22/2025 108-4515 / / [id number] Bseplate Jasmeet Cmntlss W Scrw - [id number] Implanted:Qty: 1 on 07/11/2022 by Sami Angelo DO at [facility] Right: Shoulder [employer] 03/24/2027 105-0029 / / [id number] [place] Rev Thee W Scrw - [id number] Implanted:Qty: 1 on 07/11/2022 by Sami Angelo DO at OR [facility] Right: Shoulder [employer] 04/24/2027 105-3610 / / [id number] Screw Locking 4.5mm 15mm - [id number] Implanted:Qty: 1 on 07/11/2022 by Sami Angelo DO at OR [facility] Right: Shoulder [employer] 03/24/2027 108-4515 / / [id number] Screw Locking 4.5mm 20mm - [id number] Implanted:Qty: 1 on 07/11/2022 by Sami Angelo DO at [place] [facility] Right: Shoulder [employer] 03/24/2027 108-4520 / / [id number] Humelock Ii Stem Ta6v Size 12 Cementless Implanted:Qty: 1 on 07/11/2022 by Sami Angelo DO at [place] [facility] Right: Shoulder [employer] 10/22/2026 311-0212 / / [id number] Cortical Screw Ta6v, 5mm, L. 24mm Implanted:Qty: 1 on 07/11/2022 by Sami Angelo DO at [place] [facility] Right: Shoulder [employer] 09/22/2023 107-4524 / / [id number] Humeral Cup 135/145 Degree, Standard, 36/+6 Implanted:Qty: 1 on 07/11/2022 by Sami Angelo DO at [place] [facility] Right: Shoulder 02/21/2025 313-0706 / / [id number] Screw Locking 4.5mm 20mm - [id number] Implanted:Qty: 1 on 07/11/2022 by Sami Angelo DO at [place] [facility] Right: Shoulder [employer] 03/24/2027 108-4520 [...] Agents on File Name Relationship Healthcare Agent [facility] p Communication Donny Pace Spouse Health Care Agent Care Teams Peripheral Equipment Operator Relationship Specialty Start Date End Date Keagan Sanchez MD [address] [place] [address] PCP - General Family Medicine 10/07/23 documented as of this encounter
--- OUTSIDE RECORDS SUMMARY | 2024-03-06 12:38 | External Medical Summary | Summary of Care ---
Author Name Unknown Organization [facility] Address [address] [place] [address] Phone [phone] Care Team Providers Care Marine Service Operator Name Role Phone Keagan Sanchez MD Primary Care Provider Reason for Visit * Reason Onset Date Comments Appointment 11/11/2023 Encounter Details Date Type Department Care Team (Late st Contact Info) Description 11/11/2023 Telephone [facility] [place] [address] [place] [address] Severo Forrester, JAILENE [address] [place] [address] Appointment Allergies Active Allergy Reactions Criticality Noted Date Comments Adhesive Tape 03/31/2023 Other Reaction(s): Tape- redness, paper tape/coban "ok", [id number] TAPE OK OR COBAN Clarithromycin High 03/31/2023 Other Reaction(s): Rash, diarrhea, RASH,DIARRHEA Duloxetine Hcl Flushing,Nausea/vomi tin g High 10/20/2019 Erythromycin Base Rash 03/14/2004 Orlistat Low 03/31/2023 Other Reaction(s): GI UPSET Penicillins Rash 03/14/2004 Prednisone Other (Please comment) High 10/10/2023 pancreatitis Sulfa Antibiotics Rash 03/14/2004 documented as of this encounter (statuses as of 11/11/2023) Medications Medication Sig Dispensed Refills Start Date [...] Oral Tablet (Zetia)Indications :Coronary artery disease involving [place] coronary artery of [place] heart with unstable angina pectoris (HCC) TAKE ONE TABLET BY MOUTH EVERY MORNING 90 Tablet 3 11/07/2023 11/06/2024 Active documented as of this encounter (statuses as of 11/11/2023) Active Problems Problem Noted Date Diagnosed Date [...] hypothyroidism 04/12/2021 Coronary artery disease invo lving [place] coronary artery of [place] heart without angina pectoris 09/27/2020 S/P angioplasty [...] as of this encounter (statuses as of 11/11/2023) Resolved Problems Problem Noted Date Diagnosed Date [...] as of this encounter (statuses as of 11/11/2023) Immunizations Name Administration Dates Next Due COVID-19 [...] encounter Miscellaneous Notes * Telephone Encounter - Severo Forrester OSA - 11/11/2023 2:59 PM EDT Request from Call Offs - rescheduled November 13 appointment with Nika Guevara to November 16 at 2 pm. Left a message for patient to call back to confirm appointment. documented in this encounter Plan of Treatment Upcoming Encounters Date Type Department Care Team (Late st Contact Info) Description 11/17/2023 2:00 PM EDT Home Visit [facility] [place] [address] [place] [address] Nika Guevara RN [address] [place] [address] 11/19/2023 10:00 AM EDT Office Visit Nutrition & Weight Management, [facility] [address] [place] [address] Anai Schultz PA-C [address] [place] [address] 12/09/2023 10:00 AM EDT Home Visit [facility] [place] [address] [place] [address] Oriana Isaacs PA-C [address] [place] [address] 12/22/2023 1:40 PM EDT Office Visit Family Practice [facility] [address] [place] [address] Keagan Sanchez MD [address] [place] [address] 06/07/2024 11:00 AM EDT Office Visit Cardiology [facility] [address] [facility] [address] [place] [address] Angela Littlejohn CRNP [address] [place] [address] 08/09/2024 10:00 AM EDT Office Visit [facility]ics [facility] [address] [place] [address] Sami Angelo DO [address] [place] [address] 10/07/2024 2:40 PM EDT Office Visit Dermatology [facility] [address] [place] [address] Alden Ann PA-C [address] [place] [address] Scheduled Procedures Name Priority Associated Diagnoses Date/Ti [...] D LEVEL ONCE IN A LIFETIME-USE SMARTSET# [id number] Completed 01/28/2022, 02/21/2015, 12/30/2011 RETIRED - COLONOSCOPY-EVERY [...] this encounter Medical Devices Implanted Type Area Telephone Services Sales Representative Device Identifier Shelf Expiration Date Model / Serial / Lot Screw Jami Lacie 3 Ti Set - [id number] Implanted:Qty: 6 on 03/10/2012 at OR [facility] Bilateral: Spine Lumbar LEVON : SPINE [id number] / / Screw Lacie Pa Ti 6.5x50mm - [id number] Implanted:Qty: 4 on 03/10/2012 at [facility] Bilateral: Spine Lumbar LEVON : SPINE [id number] / / Levon Xia3 7.0 X 40mm Screws Implanted:Qty: 2 on 03/10/2012 at [facility] Bilateral: Spine Lumbar [id number] / / Shaun Lacie 3 Ti 6x70mm - [id number] Implanted:Qty: 1 on 03/10/2012 at OR [facility] N/A: Spine Lumbar LEVON : SPINE [id number] / / Shaun Lacie 3 Ti Max 6x80mm - [id number] Implanted:Qty: 1 on 03/10/2012 at OR [facility] N/A: Spine Lumbar LEVON : SPINE [id number] / / 9 X 25 X 4 - 8 Avs Wedge Nose Cage Implanted:Qty: 1 on 03/10/2012 at [facility] N/A: Spine Lumbar [id number] / / Stent Synergy Xd Mr 2.37r63ye - [id number] Implanted:Qty: 1 on 09/20/2020 at [facility] Minteos [id number] 04/18/2022 [id number] 220 / / [id number] Stent Synergy Xd Mr 2.35z55mu - [id number] Implanted:Qty: 1 on 09/20/2020 at [facility] Minteos [id number] 04/25/2022 [id number] 220 / / [id number] Screw Locking 4.5mm 15mm - [id number] Implanted:Qty: 1 on 07/11/2022 by Sami Angelo DO at [facility] Right: Shoulder [employer] 11/22/2025 108-4515 / / [id number] Bseplate Jasmeet Cmntlss W Scrw - [id number] Implanted:Qty: 1 on 07/11/2022 by Sami Angelo DO at OR [facility] Right: Shoulder [employer] 03/24/2027 105-0029 / / [id number] [place] Rev Thee W Scrw - [id number] Implanted:Qty: 1 on 07/11/2022 by Sami Angelo DO at OR [facility] Right: Shoulder [employer] 04/24/2027 105-3610 / / [id number] Screw Locking 4.5mm 15mm - [id number] Implanted:Qty: 1 on 07/11/2022 by Sami Angelo DO at OR [facility] Right: Shoulder [employer] 03/24/2027 108-4515 / / [id number] Screw Locking 4.5mm 20mm - [id number] Implanted:Qty: 1 on 07/11/2022 by Sami Angelo DO at OR [facility] Right: Shoulder [employer] 03/24/2027 108-4520 / / [id number] Humelock Ii Stem Ta6v Size 12 Cementless Implanted:Qty: 1 on 07/11/2022 by Sami Angelo DO at OR [facility] Right: Shoulder [employer] 10/22/2026 311-0212 / / [id number] Cortical Screw Ta6v, 5mm, L. 24mm Implanted:Qty: 1 on 07/11/2022 by Sami Angelo DO at OR [facility] Right: Shoulder [employer] 09/22/2023 107-4524 / / [id number] Humeral Cup 135/145 Degree, Standard, 36/+6 Implanted:Qty: 1 on 07/11/2022 by Sami Angelo DO at OR [facility] Right: Shoulder 02/21/2025 313-0706 / / [id number] Screw Locking 4.5mm 20mm - [id number] Implanted:Qty: 1 on 07/11/2022 by Sami Angelo DO at OR [facility] Right: Shoulder [employer] [...] Pace Spouse Health Care Agent Care Teams Marine Service Operator Relationship Specialty Start Date End Date Keagan Sanchez MD [address] [place] [phone] PCP - General Family Medicine 10/07/23 documented as of this encounter
--- OUTSIDE RECORDS SUMMARY | 2024-03-06 12:38 | External Medical Summary | Summary of Care ---
Author Name Unknown Organization [facility] Address [address] [place] [address] Phone [phone] Care Team Providers Care Rehab Nurse Name Role Phone Keagan Sanchez MD Primary Care Provider [phone] Reason for Visit * Reason Onset Date Comments Appointment 11/07/2023 Encounter Details Date Type Department Care Team (Late st Contact Info) Description 11/07/2023 Telephone [facility] [place] [address] [place] [address] Services, Scheduling [address] [place] [address] Appointment Allergies Active Allergy Reactions Criticality Noted Date Comments Adhesive Tape 03/31/2023 Other Reaction(s): Tape- redness, paper tape/coban "ok", [id number] TAPE OK OR COBAN Clarithromycin High 03/31/2023 [...] Oral Tablet (Zetia)Indications :Coronary artery disease involving [place] coronary artery of [place] heart with unstable angina pectoris (HCC) TAKE [...] hypothyroidism 04/12/2021 Coronary artery disease invo lving [place] coronary artery of [place] heart without angina pectoris 09/27/2020 S/P angioplasty [...] Stout OSA - 11/07/2023 3:52 PM EDT [facility] Engagement Attempt Engagement: Engagement Attempt 1: Unable to contact Engagement Attempt 2: No data was found Home Information: No data was found Advance Care Planning (ACP): No data was found Has Living Will or Advance Directive: No data was found Anticipated Sub-Program: Short-Term Management (less than 3 months) Confirmation of Sub-Program Type (by care steam brush operator): No data was found Handoff Information: Current care team notified via: No data was found Current telemonitoring equipment: No data was found documented in this encounter Plan of Treatment Upcoming Encounters Date Type Department Care Team (Late st Contact Info) Description 11/19/2023 10:00 AM EDT Office Visit Nutrition & Weight Management, [facility] [address] [place] [address] Anai Schultz PA-C [address] [place] [address] 12/22/2023 1:40 PM EDT Office Visit Family Practice [facility] [address] [place] [address] Keagan Sanchez MD [address] [place] [address] 08/09/2024 10:00 AM EDT Office Visit Orthopaedics [facility] [address] [place] [address] Sami Angelo DO [address] [place] [address] 10/07/2024 2:40 PM EDT Office Visit Dermatology [facility] [address] [place] [address] Alden Ann PA-C [address] [place] [phone] Scheduled Procedures Name Priority Associated Diagnoses Date/Ti [...] Additional history exists DXA Scan 01/02/2024 01/01/2022, 1203/2016, 12/09/2011, Additional [...] D LEVEL ONCE IN A LIFETIME-USE SMARTSET# [id number] Completed 01/28/2022, 02/21/2015, 12/30/2011 RETIRED - COLONOSCOPY-EVERY [...] this encounter Medical Devices Implanted Type Area Hand Cigar Making Supervisor Device Identifier Shelf Expiration Date Model / Serial / Lot Screw Jami Lacie 3 Ti Set - [id number] Implanted:Qty: 6 on 03/10/2012 at [place] [facility] Bilateral: Spine Lumbar LEVON : SPINE [id number] / / Screw Lacie Pa Ti 6.5x50mm - [id number] Implanted:Qty: 4 on 03/10/2012 at [place] [facility] Bilateral: Spine Lumbar LEVON : SPINE [id number] / / [place] Xia3 7.0 X 40mm Screws Implanted:Qty: 2 on 03/10/2012 at [place] [facility] Bilateral: Spine Lumbar [id number] / / Shaun Lacie 3 Ti 6x70mm - [id number] Implanted:Qty: 1 on 03/10/2012 at [place] [facility] N/A: Spine Lumbar LEVON : SPINE [id number] / / Shaun Lacie 3 Ti Max 6x80mm - [id number] Implanted:Qty: 1 on 03/10/2012 at [place] [facility] N/A: Spine Lumbar LEVON : SPINE [id number] / / 9 X 25 X 4 - 8 Avs Wedge Nose Cage Implanted:Qty: 1 on 03/10/2012 at [place] [facility] N/A: Spine Lumbar [id number] / / Stent Synergy Xd Mr 2.49n80ws - [id number] Implanted:Qty: 1 on 09/20/2020 at [facility] Wiren Board [id number] 04/18/2022 [id number] 220 / / [id number] Stent Synergy Xd Mr 2.72l34yt - [id number] Implanted:Qty: 1 on 09/20/2020 at [facility] Wiren Board [id number] 04/25/2022 [id number] 220 / / [id number] Screw Locking 4.5mm 15mm - [id number] Implanted:Qty: 1 on 07/11/2022 by Sami Angelo DO at [place] [facility] Right: Shoulder [employer] 11/22/2025 108-4515 / / [id number] Bseplate Jasmeet Cmntlss W Scrw - [id number] Implanted:Qty: 1 on 07/11/2022 by Sami Angelo DO at [place] [facility] Right: Shoulder [employer] 03/24/2027 105-0029 / / [id number] [place] Rev Thee W Scrw - [id number] Implanted:Qty: 1 on 07/11/2022 by Sami Angelo DO at [place] [facility] Right: Shoulder [employer] 04/24/2027 105-3610 / / [id number] Screw Locking 4.5mm 15mm - [id number] Implanted:Qty: 1 on 07/11/2022 by Sami Angelo DO at [place] [facility] Right: Shoulder [employer] 03/24/2027 108-4515 / / [id number] Screw Locking 4.5mm 20mm - [id number] Implanted:Qty: 1 on 07/11/2022 by Sami Angelo [...] / [id number] Screw Locking 4.5mm 20mm - [id number] Implanted:Qty: 1 on 07/11/2022 by Sami Angelo [...] Pace Spouse Health Care Agent Care Teams Rehab Nurse Relationship Specialty Start Date End Date Keagan Sanchez MD [address] [place] [address] PCP - General Family Medicine 10/07/23 documented as of this encounter
--- OUTSIDE RECORDS SUMMARY | 2024-03-06 12:38 | External Medical Summary | Summary of Care ---
Author Name Unknown Organization [facility] Address [address] [place] [address] Phone [phone] Care Team Providers Care Physical Science Professor Name Role Phone Keagan Sanchez MD Primary Care Provider [phone] Reason for Visit * Reason Onset Date Comments Appointment 11/07/2023 Encounter Details Date Type Department Care Team (Late st Contact Info) Description 11/07/2023 Telephone [facility] [place] [address] [place] [address] Services, Scheduling [address] [place] [address] Appointment Allergies Active Allergy Reactions Criticality Noted Date Comments Adhesive Tape 03/31/2023 Other Reaction(s): Tape- redness, paper tape/coban "ok", ILHI-[id number] TAPE OK OR COBAN Clarithromycin High 03/31/2023 [...] Oral Tablet (Zetia)Indications :Coronary artery disease involving [place] coronary artery of [place] heart with unstable angina pectoris (HCC) [...] hypothyroidism 04/12/2021 Coronary artery disease invo lving [place] coronary artery of [place] heart without angina pectoris 09/27/2020 S/P angioplasty [...] 10:23 AM EDT Patient returning call to [facility]. [facility] services thoroughly discussed. Patient previously had [facility] services and is agreeable to re-enrollment. Message sent to DEANA Stout to schedule new enrollment visits. Riri RAPP, RN [facility] supervisor insulation Navigator * Telephone Encounter - Nola Stout OSA - 11/07/2023 3:52 PM EDT [facility] Engagement Attempt Engagement: Engagement Attempt 1: Unable to contact Engagement Attempt 2: No data was found Home Information: No data was found Advance Care Planning (ACP): No data was found Has Living Will or Advance Directive: No data was found Anticipated Sub-Program: Short-Term Management (less than 3 months) Confirmation of Sub-Program Type (by care java development team lead): No data was found Handoff Information: Current care team notified via: No data was found Current telemonitoring equipment: No data was found documented in this encounter Plan of Treatment Upcoming Encounters Date Type Department Care Team ([facility] st Contact Info) Description 11/19/2023 10:00 AM EDT Office Visit Nutrition & Weight Management, [facility] [address] [place] [address] Anai Schultz PA-C [address] [place] [address] 12/22/2023 1:40 PM EDT Office Visit Family Practice [facility] [address] [place] [phone] Keagan Sanchez MD [address] [place] [address] 08/09/2024 10:00 AM EDT Office Visit Orthopaedics [facility] [address] [place] [address] Sami Angelo DO [address] [place] [address] 10/07/2024 2:40 PM EDT Office Visit Dermatology [facility] [address] [place] [address] Alden Ann PA-C [address] [place] [address] Scheduled Procedures Name Priority Associated Diagnoses [...] 080 11/2022, 09/10/2022, Additional history exists GFR 10/30/2024 10/31/2023, 0 05/2023, 08/23/2023, Additional history exists DTaP,Tdap,and Td Vaccines (3 - Td or Tdap) 10/10/2026 10/10/2016, 10/26/2005 Colonoscopy 04/18/2027 04/18/2022, 03/25, 08/10/2013, Additional history exists Colorectal Cancer Screening 04/18/2027 VITAMIN D LEVEL ONCE IN A LIFETIME-USE SMARTSET# 04726 Completed 01/28/2022, 02/21/2015, 12/30/2011 RETIRED - COLONOSCOPY-EVERY [...] this encounter Medical Devices Implanted Type Area [employer] Librarian Device Identifier Shelf Expiration Date Model / Serial / Lot Screw Jami Lacie 3 Ti Set - [id number] Implanted:Qty: 6 on 03/10/2012 at [place] [facility] Bilateral: Spine Lumbar LEVON : SPINE [id number] / / Screw Lacie Pa Ti 6.5x50mm - [id number] Implanted:Qty: 4 on 03/10/2012 at [facility] Bilateral: Spine Lumbar LEVON : SPINE [id number] / / Levon Xia3 7.0 X 40mm Screws Implanted:Qty: 2 on 03/10/2012 at OR [facility] Bilateral: Spine Lumbar [id number] / / Shaun Lacie 3 Ti 6x70mm - [id number] Implanted:Qty: 1 on 03/10/2012 at OR [facility] N/A: Spine Lumbar LEVON : SPINE [id number] / / Shaun Lacie 3 Ti Max 6x80mm - [id number] Implanted:Qty: 1 on 03/10/2012 at OR [facility] N/A: Spine Lumbar LEVON : SPINE [id number] / / 9 X 25 X 4 - 8 Avs Wedge Nose Cage Implanted:Qty: 1 on 03/10/2012 at OR [facility] N/A: Spine Lumbar [id number] / / Stent Synergy Xd Mr 2.57c46dc - [id number] Implanted:Qty: 1 on 09/20/2020 at [facility] [employer] [id number] 04/18/2022 [id number] 220 / / [id number] Stent Synergy Xd Mr 2.78q45xt - [id number] Implanted:Qty: 1 on 09/20/2020 at [facility] [employer] [id number] 04/25/2022 [id number] 220 / / [id number] Screw Locking 4.5mm 15mm - [id number] Implanted:Qty: 1 on 07/11/2022 by Sami Angelo DO at OR [facility] Right: Shoulder [employer] 11/22/2025 108-4515 / / [id number] Bseplate Jasmeet Cmntlss W Scrw - [id number] Implanted:Qty: 1 on 07/11/2022 by Sami Angelo DO at OR [facility] Right: Shoulder [employer] 03/24/2027 105-0029 / / [id number] Glenosphere Rev Thee W Scrw - [id number] Implanted:Qty: 1 on 07/11/2022 by Sami Angelo DO at OR [facility] Right: Shoulder [employer] 04/24/2027 105-3610 / / [id number] Screw Locking 4.5mm 15mm - [id number] Implanted:Qty: 1 on 07/11/2022 by Sami Angelo DO at OR [facility] Right: Shoulder [employer] 03/24/2027 108-4515 / / [id number] Screw Locking 4.5mm 20mm - [id number] Implanted:Qty: 1 on 07/11/2022 by Sami Angelo [...] / [id number] Screw Locking 4.5mm 20mm - [id number] Implanted:Qty: 1 on 07/11/2022 by Sami Angelo [...] Pace Spouse Health Care Agent Care Teams Physical Science Professor Relationship Specialty Start Date End Date Keagan Sanchez MD [address] [place] [address] PCP - General Family Medicine 10/07/23 documented as of this encounter
--- OUTSIDE RECORDS SUMMARY | 2024-03-06 12:38 | External Medical Summary | Summary of Care ---
Author Name Unknown Organization [facility] Address [address] [facility] [place] [address] Phone [phone] Care Team Providers Care Rn Sane Name Role Phone Keagan Sanchez MD Primary Care Provider [phone] Reason for Visit * Reason Onset Date Comments Advice 10/30/2023 LMOM 11/05/2023 s ent My G 11/06 Encounter Details Date Type Department Care Team ([facility] Contact Info) Description 10/30/[address] [address] Keagan Sanchez MD [address] [place] [address] Advice (LMOM 11/05/2023 sent My G 11/06) Allergies Active Allergy Reactions Criticality Noted Date Comments Adhesive Tape 03/31/2023 Other Reaction(s): Tape- redness, paper tape/coban "ok", FZAB-MZRUADS-QLOON TAPE OK OR COBAN Clarithromycin High 03/31/2023 [...] 11/03/2023 Active Ezetimibe 10 MG Oral Tablet (Zetia) TAKE ONE TABLET BY MOUTH EVERY MORNING 90 Tablet 3 11/07/2022 4 Discontinue d(Refill) metFORMIN HCl 500 MG Oral Tablet (Glucophage) Take 1 Tablet by mouth 2 times a day with morning and evening meals. 60 Tablet 4 05/15/2023 4 Discontinue d(Refill) documented as of this [...] hypothyroidism 04/12/2021 Coronary artery disease invo lving [place] coronary artery of [place] heart without angina pectoris 09/27/2020 S/P angioplasty [...] Encounter - Bekah Concepcion MED ASSIST - 11/07/2023 2:30 PM EDT Sent pt My G. * Telephone Encounter - Marbella Wilkes CCMA - 11/05/2023 2:39 PM EDT Attempted to call pt and make aware of below. Unable to reach. LMOM If pt calls back please make aware of below. * Telephone Encounter - Shane Morales PA-C - 11/03/2023 9:34 AM EDT Pharmacy [facility]: [facility] [id number] Medication Orders Placed This Encounter Medications Lactulose 10 GM/15ML Oral Solution (Constulose) Sig: Take 15 mL by mouth 2 times a day as needed for Constipation. severe constipation Dispense: 237 mL Refill: 1 I sent this in, but if it is not helping in a day or 2 or the pain gets worse, she needs to get back in here. Alexis * Telephone Encounter - Joon Perez LPN - 10/31/2023 1:42 PM EDT Please advise message below regarding pain. Tx 10/28/2023 (in office), Visit date not found (telemedicine) 12/22/2023 * Telephone Encounter - Sheri Boo OSA - 10/30/2023 4:03 PM EDT Pt advised she saw Alexis Morales on Friday, and he advised pt to take miralax which helped but when shegets up and does anything she's still in a lot of pain. Please call pt back and advise what she else can do. Thank you documented in this encounter Plan of Treatment Upcoming Encounters Date Type Department Care Team (Late st Contact Info) Description 11/19/2023 10:00 AM EDT Office Visit Nutrition & Weight Management, [facility] [address] [facility] [place] [address] Anai Schultz PA-C [address] [place] [address] 12/22/2023 1:40 PM EDT Office [address] [place] [phone] Keagan Sanchez MD [address] [place], [place] [address] [place] [address] 08/09/2024 10:00 AM EDT Office Visit Orthopaedics [facility] [address] [place] [address] Sami Angelo DO [address] [place], [place] [address] 10/07/2024 2:40 PM EDT Office Visit Dermatology [facility] [address] [place] [address] Alden Ann PA-C [address] [place] [address] Scheduled Procedures Name Priority Associated Diagnoses Date/Ti [...] 09/20/2020, Additional history exists TSH 07/16/2024 07/17/2023, /11/2022, 09/10/2022, Additional history exists GFR 10/30/2024 10/31/2023, 0605/2023, 08/23/2023, Additional history exists DTaP,Tdap,and Td Vaccines (3 - Td or Tdap) 10/10/2026 10/10/2016, 10/26/2005 Colonoscopy 04/18/2027 04/18/2022, 03/25, 08/10/2013, Additional history exists Colorectal Cancer Screening 04/18/2027 VITAMIN D LEVEL ONCE IN A LIFETIME-USE SMARTSET# 03055 Completed 01/28/2022, 02/21/2015, 12/30/2011 RETIRED - COLONOSCOPY-EVERY [...] this encounter Medical Devices Implanted Type Area Lab Asst Device Identifier Shelf Expiration Date Model / Serial / Lot Screw Jami Lacie 3 Ti Set - [id number] Implanted:Qty: 6 on 03/10/2012 at [place] [facility] Bilateral: Spine Lumbar LEVON : SPINE [id number] / / Screw Lacie Pa Ti 6.5x50mm - [id number] Implanted:Qty: 4 on 03/10/2012 at OR [facility] Bilateral: Spine Lumbar LEVON : SPINE [id number] / / Levon Xia3 7.0 X 40mm Screws Implanted:Qty: 2 on 03/10/2012 at OR [facility] Bilateral: Spine Lumbar [id number] / / Shaun Lacie 3 Ti 6x70mm - [id number] Implanted:Qty: 1 on 03/10/2012 at OR [facility] N/A: Spine Lumbar LEVON : SPINE [id number] / / Shaun Lacie 3 Ti Max 6x80mm - [id number] Implanted:Qty: 1 on 03/10/2012 at OR [facility] N/A: Spine Lumbar LEVON : SPINE [id number] / / 9 X 25 X 4 - 8 Avs Wedge Nose Cage Implanted:Qty: 1 on 03/10/2012 at OR [facility] N/A: Spine Lumbar [id number] / / Stent Synergy Xd Mr 2.74o08fb - [id number] Implanted:Qty: 1 on 09/20/2020 at [facility] [employer] [id number] 04/18/2022 [id number] 220 / / [id number] Stent Synergy Xd Mr 2.48z59dt - [id number] Implanted:Qty: 1 on 09/20/2020 at [facility] [employer] [id number] 04/25/2022 [id number] 220 / / [id number] Screw Locking 4.5mm 15mm - [id number] Implanted:Qty: 1 on 07/11/2022 by Sami Angelo DO at OR [facility] Right: Shoulder [employer] 11/22/2025 108-4515 / / [id number] Bseplate Jasmeet Cmntlss W Scrw - [id number] Implanted:Qty: 1 on 07/11/2022 by Sami Angelo DO at OR [facility] Right: Shoulder [employer] 03/24/2027 105-0029 / / [id number] Glenosphere Rev Thee W Scrw - [id number] Implanted:Qty: 1 on 07/11/2022 by Sami Angelo DO at OR [facility] Right: Shoulder [employer] 04/24/2027 105-3610 / / [id number] Screw Locking 4.5mm 15mm - [id number] Implanted:Qty: 1 on 07/11/2022 by Sami Angelo DO at OR [facility] Right: Shoulder [employer] 03/24/2027 108-4515 / / [id number] Screw Locking 4.5mm 20mm - [id number] Implanted:Qty: 1 on 07/11/2022 by Sami Angelo DO at OR [facility] Right: Shoulder [employer] 03/24/2027 108-4520 / / [id number] Humelock Ii Stem Ta6v Size 12 Cementless Implanted:Qty: 1 on 07/11/2022 by Sami Angelo, DO at OR [facility] Right: Shoulder [employer] 10/22/2026 311-0212 / / [id number] Cortical Screw Ta6v, 5mm, L. 24mm Implanted:Qty: 1 on 07/11/2022 by Sami Angelo, at [place] [facility] Right: Shoulder [employer] 09/22/2023 107-4524 / / [id number] Humeral Cup 135/145 Degree, Standard, 36/+6 Implanted:Qty: 1 on 07/11/2022 by Sami Angelo, at OR [facility] Right: Shoulder 02/21/2025 313-0706 / / [id number] Screw Locking 4.5mm 20mm - [id number] Implanted:Qty: 1 on 07/11/2022 by Sami Angelo, at [...] Agents on File Name Relationship Healthcare Agent [facility] Communication Donny Pace Spouse Health Care Agent Care Teams Rn Sane Relationship Specialty Start Date End Date Keagan Sanchez MD [address] [place] [address] PCP - General Family Medicine 10/07/23 documented as of this encounter
--- OUTSIDE RECORDS SUMMARY | 2024-03-06 12:38 | External Medical Summary | Summary of Care ---
Author Name Unknown Organization [facility] Address [address] [facility] [place] [address] Phone [phone] Care Team Providers Care Palliative Senior Np Name Role Phone Keagan Sanchez MD Primary Care Provider [phone] Reason for Visit * Reason Onset Date Comments Advice 10/30/2023 LMOM 11/05/2023 s ent My G 11/06 Encounter Details Date Type Department Care Team ([facility] Contact Info) Description 10/30/[address] [address] Keagan Sanchez MD [address] [place] [address] Advice (LMOM 11/05/2023 sent My G 11/06) Allergies Active Allergy Reactions Criticality Noted Date Comments Adhesive Tape 03/31/2023 Other Reaction(s): Tape- redness, paper tape/coban "ok", NDUY-WEJTQTC-BSNIG TAPE OK OR COBAN Clarithromycin High 03/31/2023 [...] artery disease invo lving [place] coronary artery of [place] heart without angina pectoris 09/27/2020 S/P angioplasty [...] encounter Miscellaneous Notes * Telephone Encounter - Marbella Wilkes CCMA - 11/10/2023 8:54 AM EDT MYG message read * Telephone Encounter - Bekah Concepcion MED [...] EDT [facility]acy [facility]: [id number] [facility] Medication Orders Placed This Encounter Medications Lactulose [...] EDT Office Visit Nutrition & Weight Management, [facility] [address] [place] [address] Anai Schultz PA-C [address] [place] [address] 12/22/2023 1:40 PM EDT [address] [phone] Keagan Sanchez MD [address] [place] [address] 08/09/2024 10:00 AM EDT Office Visit Orthopaedics [facility] [address] [place] [address] Sami Angelo DO 16 [place], [place] [phone] 10/07/2024 2:40 PM EDT Office Visit Dermatology [facility] [address] [place] [address] Alden Ann PA-C [address] [place], [place] [phone] Scheduled Procedures Name Priority Associated Diagnoses Date/Ti [...] 10/30/2024 10/31/2023, 05/2023, 08/23/2023, Additional history exists DTaP,Tdap,and Td Vaccines (3 - Td or Tdap) 10/10/2026 10/10/2016, 10/26/2005 Colonoscopy 04/18/2027 04/18/2022, 03/25, 08/10/2013, Additional history exists Colorectal Cancer Screening 04/18/2027 VITAMIN D LEVEL ONCE IN A LIFETIME-USE SMARTSET# 26459 Completed 01/28/2022, 02/21/2015, 12/30/2011 RETIRED - COLONOSCOPY-EVERY [...] this encounter Medical Devices Implanted Type Area Pulmonary Fellow Device Identifier Shelf Expiration Date Model / Serial / Lot Screw Jami Lacie 3 Ti Set - [id number] Implanted:Qty: 6 on 03/10/2012 at [place] [facility] Bilateral: Spine Lumbar LEVON : SPINE [id number] / / Screw Lacie Pa Ti 6.5x50mm - [id number] Implanted:Qty: 4 on 03/10/2012 at [place] [facility] Bilateral: Spine Lumbar LEVON : SPINE [id number] / / Mcgrew Xia3 7.0 X 40mm Screws Implanted:Qty: 2 on 03/10/2012 at [place] [facility] Bilateral: Spine Lumbar [id number] / / Shaun Lacie 3 Ti 6x70mm - [id number] Implanted:Qty: 1 on 03/10/2012 at [place] [facility] N/A: Spine Lumbar LEVON : SPINE [id number] / / Shaun Lacie 3 Ti Max 6x80mm - [id number] Implanted:Qty: 1 on 03/10/2012 at [place] [facility] N/A: Spine Lumbar LEVON : SPINE [id number] / / 9 X 25 X 4 - 8 Avs Wedge Nose Cage Implanted:Qty: 1 on 03/10/2012 at [place] [facility] N/A: Spine Lumbar [id number] / / Stent Synergy Xd Mr 2.95n17on - [id number] Implanted:Qty: 1 on 09/20/2020 at [facility] [employer] [id number] 04/18/2022 [id number] 220 / / [id number] Stent Synergy Xd Mr 2.04y35di - [id number] Implanted:Qty: 1 on 09/20/2020 at [facility] [employer] [id number] 04/25/2022 [id number] 220 / / [id number] Screw Locking 4.5mm 15mm - [id number] Implanted:Qty: 1 on 07/11/2022 by Sami Angelo DO at [place] [facility] Right: Shoulder [employer] 11/22/2025 108-4515 / / [id number] Bseplate Jasmeet Cmntlss W Scrw - [id number] Implanted:Qty: 1 on 07/11/2022 by Sami Angelo DO at [place] [facility] Right: Shoulder [employer] 03/24/2027 105-0029 / / [id number] Glenosphere Rev Thee W Scrw - [id number] Implanted:Qty: 1 on 07/11/2022 by Sami Angelo DO at [place] [facility] Right: Shoulder [employer] 04/24/2027 105-3610 / / T1980 Screw Locking 4.5mm 15mm - [id number] Implanted:Qty: 1 on 07/11/2022 by Sami Angelo DO at [place] [facility] Right: Shoulder [employer] 03/24/2027 108-4515 / / [id number] Screw Locking 4.5mm 20mm - [id number] Implanted:Qty: 1 on 07/11/2022 by Sami Angelo, DO at [place] [facility] Right: Shoulder [employer] 03/24/2027 108-4520 / / [id number] Humelock Ii Stem Ta6v Size 12 Cementless Implanted:Qty: 1 on 07/11/2022 by Sami Angelo, DO at [place] [facility] Right: Shoulder [employer] 10/22/2026 311-0212 / / [id number] Cortical Screw Ta6v, 5mm, L. 24mm Implanted:Qty: 1 on 07/11/2022 by Sami Angelo, at [place] [facility] Right: Shoulder [employer] 09/22/2023 107-4524 / / [id number] Humeral Cup 135/145 Degree, Standard, 36/+6 Implanted:Qty: 1 on 07/11/2022 by Sami Angelo, at [place] [facility] Right: Shoulder 02/21/2025 313-0706 / / [id number] Screw Locking 4.5mm 20mm - [id number] Implanted:Qty: 1 on 07/11/2022 by Sami Angelo, at [place] [facility] Right: Shoulder [employer] [...] [facility] p Communication Donny Pace Spouse Health Care Agent Care Teams Palliative Senior Np Relationship Specialty Start Date End Date Keagan Sanchez MD [address] [place] [address] PCP - General Family Medicine 10/07/23 documented as of this encounter
--- OUTSIDE RECORDS SUMMARY | 2024-03-06 12:38 | External Medical Summary | Summary of Care ---
Author Name Unknown Organization [facility] Address [address] [place] [address] Phone [phone] Care Team Providers Care Fulfillment Specialist Name Role Phone Keagan Sanchez MD Primary Care Provider [phone] Reason for Visit * Reason Onset Date Comments [facility]: Enrollment 11/10/2023 Encounter Details Date Type Department Care Team (Late st Contact Info) Description 11/10/2023 Telephone [facility] [place] [address] [place] [address] Services, Scheduling [address] [place] [address] [facility]: Enrollment Allergies Active Allergy Reactions Criticality Noted Date Comments Adhesive Tape 03/31/2023 Other Reaction(s): Tape- redness, paper tape/coban "ok", [id number]-[id number]-CSTIE TAPE OK OR COBAN Clarithromycin High 03/31/2023 [...] Oral Tablet (Zetia)Indications :Coronary artery disease involving [place] coronary artery of [place] heart with unstable angina pectoris (HCC) TAKE [...] hypothyroidism 04/12/2021 Coronary artery disease invo lving [place] coronary artery of [place] heart without angina pectoris 09/27/2020 S/P angioplasty [...] Telephone Encounter - Nola Stout OSA - 11/10/2023 10:55 AM EDT [facility] Engagement Attempt Engagement: Engagement Attempt 1: Unable to contact Engagement Attempt 2: Contacted - Agreed to home-based services Scheduled appointment information: scheduled pt to see nurse on 11/13 at 12:30 and AP on 12/08 at 10 am Home Information: No data was found Advance Care Planning (ACP): No data was found Has Living Will or Advance Directive: No data was found Anticipated Sub-Program: Short-Term Management (less than 3 months) Confirmation of Sub-Program Type (by care team cdl driver): No data was found Handoff Information: Current care team notified via: No data was found Current telemonitoring equipment: No data was found documented in this encounter Plan of Treatment Upcoming Encounters Date Type Department Care Team (Late st Contact Info) Description 11/14/2023 12:30 PM EDT [facility] Visit [facility] [place] [place] [address] [place] [address] Nika Guevara RN [address] [place] [address] 11/19/2023 10:00 AM EDT Office Visit Nutrition & [facility] Management, [facility] [place] [address] Anai Schultz PA-C [address] [place] [address] 12/09/2023 10:00 AM EDT Home Visit [facility] [place] [address] [place] [address] Oriana Isaacs PA-C [address] [place] [address] 12/22/2023 1:40 PM EDT Office Visit Family Practice [facility] [address] [place] [phone] Keagan Sanchez MD [address] [place] [address] 08/09/2024 10:00 AM EDT [facility] [place] [address] [place] [phone] Sami Angelo DO [address] [place] [address] 10/07/2024 2:40 PM EDT Office Visit Dermatology [facility] [address] [place] [phone] Alden Ann PA-C [address] [place] [address] Scheduled Procedures Name Priority Associated Diagnoses Date/Ti [...] D LEVEL ONCE IN A LIFETIME-USE SMARTSET# 89369 Completed 01/28/2022, 02/21/2015, 12/30/2011 RETIRED - COLONOSCOPY-EVERY [...] this encounter Medical Devices Implanted Type Area Writer Device Identifier Shelf Expiration Date Model / Serial / Lot Screw Jami Lacie 3 Ti Set - [id number] Implanted:Qty: 6 on 03/10/2012 at [place] [facility] Bilateral: Spine Lumbar LEVON : SPINE [id number] / / Screw Lacie Pa Ti 6.5x50mm - [id number] Implanted:Qty: 4 on 03/10/2012 at [facility] Bilateral: Spine Lumbar LEVON : SPINE [id number] / / [place] Xia3 7.0 X 40mm Screws Implanted:Qty: 2 on 03/10/2012 at [facility] Bilateral: Spine Lumbar [id number] / / Shaun Lacie 3 Ti 6x70mm - [id number] Implanted:Qty: 1 on 03/10/2012 at OR [facility] N/A: Spine Lumbar LEVON : SPINE [id number] / / Shaun Lacie 3 Ti Max 6x80mm - [id number] Implanted:Qty: 1 on 03/10/2012 at OR [facility] N/A: Spine Lumbar LEVON : SPINE [id number] / / 9 X 25 X 4 - 8 Avs Wedge Nose Cage Implanted:Qty: 1 on 03/10/2012 at OR [facility] N/A: Spine Lumbar [id number] / / Stent Synergy Xd Mr 2.66d41eq - [id number] Implanted:Qty: 1 on 09/20/2020 at [facility] [employer] [id number] 04/18/2022 [id number] 220 / / [id number] Stent Synergy Xd Mr 2.55i16bc - [id number] Implanted:Qty: 1 on 09/20/2020 at [facility] [employer] [id number] 04/25/2022 [id number] 220 / / [id number] Screw Locking 4.5mm 15mm - [id number] Implanted:Qty: 1 on 07/11/2022 by Sami Angelo DO at OR [facility] Right: Shoulder [employer] 11/22/2025 108-4515 / / [id number] Bseplate Jasmeet Cmntlss W Scrw - [id number] Implanted:Qty: 1 on 07/11/2022 by Sami Angelo DO at OR [facility] Right: Shoulder [employer] 03/24/2027 105-0029 / / [id number] Glenosphere Rev Thee W Scrw - [id number] Implanted:Qty: 1 on 07/11/2022 by Sami Angelo DO at OR [facility] Right: Shoulder [employer] 04/24/2027 105-3610 / / [id number] Screw Locking 4.5mm 15mm - [id number] Implanted:Qty: 1 on 07/11/2022 by Sami Angelo DO at OR [facility] Right: Shoulder [employer] 03/24/2027 108-4515 / / [id number] Screw Locking 4.5mm 20mm - [id number] Implanted:Qty: 1 on 07/11/2022 by Sami Angelo [...] / [id number] Screw Locking 4.5mm 20mm - [id number] Implanted:Qty: 1 on 07/11/2022 by Sami Angelo [...] Pace Spouse Health Care Agent Care Teams Fulfillment Specialist Relationship Specialty Start Date End Date Keagan Sanchez MD [address] [place] [address] PCP - General Family Medicine 10/07/23 documented as of this encounter
--- OUTSIDE RECORDS SUMMARY | 2024-03-06 12:39 | External Medical Summary | Summary of Care ---
Author Name Unknown Organization [facility] Address [address] [facility] [place] [address] Phone [phone] Care Team Providers Care Senior Corporate Recruiter Name Role Phone Keagan Sanchez MD Primary Care Provider [phone] Reason for Visit * Reason Comments Acute Encounter Details Date Type Department Care Team ([facility] Contact Info) Description 10/31/2023 2:40 PM EDT Telemedicine [address] [phone] Kosta Monge MD [address] [place] [phone] Constipation, unspecified constipation type*; LLQ pain Allergies Active Allergy Reactions Criticality Noted Date Comments Adhesive Tape 03/31/2023 Other Reaction(s): Tape- redness, paper tape/coban "ok", VAKJ-UXFSGIQ-TEQOL TAPE OK OR COBAN Clarithromycin High 03/31/2023 Other Reaction(s): Rash, diarrhea, RASH,DIARRHEA Duloxetine Hcl Flushing,Nausea/vomi tin g High 10/20/2019 Erythromycin Base Rash 03/14/2004 Orlistat Low 03/31/2023 Other Reaction(s): GI UPSET Penicillins Rash 03/14/2004 Prednisone Other (Please comment) High 10/10/2023 pancreatitis Sulfa Antibiotics Rash 03/14/2004 documented as of this encounter (statuses as of 10/31/2023) Medications Medication Sig Dispensed Refills Start Date [...] mouth at bed time, Reported on 10/28/2022 Ezetimibe 10 MG Oral Tablet (Zetia) TAKE ONE TABLET BY MOUTH EVERY MORNING 90 Tablet 3 11/07/2022 11/11/2023 Active Pantoprazole Sodium 40 MG Oral Tablet [...] Pain, Chest. 25 Tablet 1 03/27/2023 Active metFORMIN HCl 500 MG Oral Tablet (Glucophage) Take 1 Tablet by mouth 2 times a day with morning and evening meals. 60 Tablet 4 05/15/2023 Active amLODIPine Besylate 5 MG Oral Tablet [...] 07/24/2024 Active Torsemide 10 MG Oral Tablet (Demadex)Indication s:Shortness of breath Take 1 Tablet by mouth in the morning. 30 Tablet 1 08/14/2023 Active Additional Information Patient not taking.Reported on 10/10/2023 Levalbuterol HCl 1.25 MG/3ML Inhalation Nebulization Solution (Xopenex)Indication s:Acute cough,Shortness of breath,Bronchitis Inhale 1 Ampule via nebulizer every 4 hours as needed for Wheezing. 72 mL 12 08/15/2023 Active Metoprolol Succinate ER 25 MG Oral Tablet Extended Release 24 Hour (toPROL XL)Indications:Atri al flutter, unspecified type (HCC) TAKE ONE TABLET BY MOUTH IN THE MORNING. 90 Tablet 3 08/28/2023 08/27/2024 Active Levalbuterol Tartrate 45 MCG/ACT Inhalation Aerosol (Xopenex HFA)Indications:[place] rtness of breath,Bronchitis, complicated Inhale 2 Puffs by [...] 09/25/2024 Active Gabapentin 800 MG Oral Tablet (Neurontin)Indicati ons:DDD (degenerative disc disease), cervical Take 1 Tablet by mouth in the morning and 1 Tablet at noon and 1 Tablet before bedtime. 270 Tablet 1 10/07/2023 Active Sertraline HCl 100 MG Oral Tablet (Zoloft) 09/23/2023 Active LORazepam 0.5 MG Oral Tablet (Ativan) 08/26/2023 Active Famotidine 20 MG Oral Tablet (Pepcid)Indications :Abdominal pain, epigastric,Chronic superficial gastritis without bleeding Take 1 Tablet by mouth in the morning and 1 Tablet before bedtime. 60 Tablet 11 10/10/2023 Active traMADol HCl 50 MG Oral Tablet (Ultram)Indications :Postlaminectomy syndrome, lumbar Take 2 Tablets by mouth every 6 hours as needed for Pain, Moderate. 90 Tablet 10/23/2023 Active documented as of this encounter (statuses as of 10/31/2023) Active Problems Problem Noted Date Diagnosed Date [...] hypothyroidism 04/12/2021 Coronary artery disease invo lving [place] coronary artery of [place] heart without angina pectoris 09/27/2020 S/P angioplasty [...] as of this encounter (statuses as of 10/31/2023) Resolved Problems Problem Noted Date Diagnosed Date [...] as of this encounter (statuses as of 10/31/2023) Immunizations Name Administration Dates Next Due COVID-19 [...] of this encounter Progress Notes * Kosta Monge MD - 10/31/2023 2:28 PM EDT Images from the original note were not included. History of Present Illness Shalini Pace is a 63 year old female that presents for Acute AB pain, constipation since Friday Seen on Friday XR Started on bowel regimen--miralax, 3 doses and enemas Daily loose stooling x3/4, but not passing formed stool LUQ/LLQ tenderness, nausea with palpation, decreased appetite and fatigue Describes a h/o diverticulitis Denies fevers or chills History of diverticulitis Describes a new lump in her left upper quadrant Physical Exam There were no vitals filed for this visit. BP Readings from Last 3 Encounters: 10/28/23 118/60 10/10/23 114/70 10/03/23 118/60 Wt Readings from Last 3 Encounters: 10/28/23 80.1 kg (176 lb 9.6 oz) 10/10/23 81.2 kg (179 lb) 10/03/23 81.2 kg (179 lb) BMI Readings from Last 3 Encounters: 10/28/23 30.31 kg/m 10/10/23 30.73 kg/m 10/03/23 30.73 kg/m Ht Readings from Last 3 Encounters: 10/03/23 1.626 m (5' 4") 08/24/23 1.626 m (5' 4") 08/11/23 1.626 m (5' 4") General; Normal cephalic, atraumatic Neuro/psych; CN grossly intact, normal gait, answering questions appropriately, normal mood/affect I have reviewed the following results: None Assessment and Plan Constipation, unspecified constipation type (Primary) LLQ pain Encounter limited by telehealth, able to give my recommendation to the ED for inperson evaluation/testing, called [facility] ED to give report Concern for fecal impaction, developing obstruction versus diverticulitis. Wrap-Up Time: I spent a total of 30-39 minutes (exact time 32 mins) on the date of service in preparation, delivery, and documentation of the care provided to Shalini Pace excluding any time spent in the performance of separately billed services. Telemedicine: Patient location: HOME. I was in a hospital or clinic location. After connecting through televideo,patient was verified with two unique identifiers. Patient (or authorized legal patient registration representative) was then informed that this was a Telemedicine visit and being conducted confidentially over secure lines. Methods to assure confidentiality were taken. Patient acknowledged consent and understanding of pr ivacy and security of the Telemedicine visit. The patient agreed to participate. documented in this encounter Plan of Treatment Upcoming Encounters Date Type Department Care Team (Late st Contact Info) Description 11/19/2023 10:00 AM EDT Office Visit Nutrition & Weight Management, [facility] [address] [facility] [place] [address] Anai Schultz PA-C [address] [facility] [place] [address] 12/22/2023 1:40 PM EDT Office Visit Family [address] [phone] Keagan Sanchez MD [address] [place] [address] 08/09/2024 10:00 AM EDT Office Visit Orthopaedics [address] [phone] Sami Angelo, 16 [place] [address] 10/07/2024 2:40 PM EDT Office Visit Dermatology [facility] [address] [place] [address] Alden Ann PA-C [address] [place] [address] Scheduled Procedures Name Priority Associated Diagnoses Date/Ti [...] 09/20/2020, Additional history exists TSH 07/16/2024 07/17/2023, 08/11/2022, 09/10/2022, Additional history exists GFR 08/24/2024 08/25/2023, 03/2023, 07/20/2023, Additional history exists DTaP,Tdap,and Td Vaccines (3 - Td or Tdap) 10/10/2026 10/10/2016, 10/26/2005 Colonoscopy 04/18/2027 04/18/2022, 03/25, 08/10/2013, Additional history exists Colorectal Cancer Screening 04/18/2027 VITAMIN D LEVEL ONCE IN A LIFETIME-USE SMARTSET# [id number] Completed 01/28/2022, 02/21/2015, 12/30/2011 RETIRED - COLONOSCOPY-EVERY [...] this encounter Medical Devices Implanted Type Area Software Integration Developer Device Identifier Shelf Expiration Date Model / Serial / Lot Screw Jami Lacie 3 Ti Set - [id number] [place]ed:Qty[place] 6 [place] 03[place]10[place] [facility] [place]ilateral: Spine Lumbar LEVON : SPINE [id number] / / Screw Lacie Pa Ti 6.5x50mm - [id number] Implanted:Qty: 4 on 03/10/2012 [place] [facility] [place] Bilateral: Spine Lumbar LEVON : SPINE [id number] / / [place] Xia3 7.0 X 40mm Screws Implanted:Qty: 2 on 03/10/2012 [place] [facility] Bilateral: Spine Lumbar [id number] / / Shaun Lacie 3 Ti 6x70mm - [id number] Implanted:Qty: 1 on 03/10/2012 [place] [facility] [place] N/A: Spine Lumbar LEVON : SPINE [id number] / / Shaun Lacie 3 Ti Max 6x80mm - [id number] Implanted:Qty: 1 on 03/10/2012 at [place] [facility] [place] N/A: Spine Lumbar LEVON : SPINE [id number] / / 9 X 25 X 4 - 8 Avs Wedge Nose Cage Implanted:Qty: 1 on 03/10/2012 at [place] [facility] [place] N/A: Spine Lumbar [id number] / / Stent Synergy Xd Mr 2.26c87zl - [id number] Implanted:Qty: 1 on 09/20/2020 at [facility] [place] [employer] [id number] 04/18/2022 [id number] 220 / / [id number] Stent Synergy Xd Mr 2.41t70wu - [id number] Implanted:Qty: 1 on 09/20/2020 at [facility] [employer] [id number] 04/25/2022 [id number] 220 / / [id number] Screw Locking 4.5mm 15mm - [id number] Implanted:Qty: 1 on 07/11/2022 by Sami Angelo DO [place] [facility] [place] Right: Shoulder [employer] 11/22/2025 108-4515 / / [id number] Bseplate Jasmeet Cmntlss W Scrw - [id number] Implanted:Qty: 1 on 07/11/2022 by Sami Angelo DO [place] [facility] [place] Right: Shoulder [employer] 03/24/2027 105-0029 / / [id number] [employer] Rev Thee W Scrw - [id number] Implanted:Qty: 1 on 07/11/2022 by Sami Angelo DO [place] [facility] [place] Right: Shoulder [employer] 04/24/2027 105-3610 / / [id number] Screw Locking 4.5mm 15mm - [id number] Implanted:Qty: 1 on 07/11/2022 by Sami Angelo DO at [place] [facility] [place] Right: Shoulder [employer] 03/24/2027 108-4515 / / [id number] Screw Locking 4.5mm 20mm - [id number] Implanted:Qty: 1 on 07/11/2022 by Sami Angelo [...] / [id number] Screw Locking 4.5mm 20mm - [id number] Implanted:Qty: 1 on 07/11/2022 by Sami Angelo DO [place] [facility] [place] Right: Shoulder [employer] 03/24/2027 108-4520 / / [id number] documented as of this encounter Visit Diagnoses Diagnosis Constipation, unspecified constipation type- Primary LLQ pain Abdominal pain, left lower quadrant documented in this encounter Advance Directives * [...] Agents on File Name Relationship Healthcare Agent [facility] Communication Donny Pace Spouse Health Care Agent Care Teams Senior Corporate Recruiter Relationship Specialty Start Date End Date Keagan Sanchez MD [address] [place] [address] PCP - General Family Medicine 10/07/23 documented as of this encounter
--- OUTSIDE RECORDS SUMMARY | 2024-03-06 12:39 | External Medical Summary | Summary of Care ---
Author Name Unknown Organization [facility] Address [address] [facility] [place] [address] Phone [phone] Care Team Providers Care Retail Account Representative Name Role Phone Keagan Sanchez MD Primary Care Provider [phone] Reason for Visit * Reason Onset Date Comments Advice 10/30/2023 LMOM 11/05/2023 Encounter Details Date Type Department Care Team ([facility] st Contact Info) Description 10/30/2023 Telephone Family [address] [phone] Keagan Sanchez MD [address] [place] [address] Advice (LMOM 11/05/2023) Allergies Active Allergy Reactions Criticality Noted Date Comments Adhesive Tape 03/31/2023 Other Reaction(s): Tape- redness, paper tape/coban "ok", JTUM-LTIIAFZ-GGAHS TAPE OK OR COBAN Clarithromycin High 03/31/2023 Other Reaction(s): Rash, diarrhea, RASH,DIARRHEA Duloxetine Hcl Flushing,Nausea/vomi tin g High 10/20/2019 Erythromycin Base Rash 03/14/2004 Orlistat Low 03/31/2023 Other Reaction(s): GI UPSET Penicillins Rash 03/14/2004 Prednisone Other (Please comment) High 10/10/2023 pancreatitis Sulfa Antibiotics Rash 03/14/2004 documented as of this encounter (statuses as of 11/05/2023) Medications Medication Sig Dispensed Refills Start Date [...] severe constipation 237 mL 1 11/03/2023 Active documented as of this encounter (statuses as of 11/05/2023) Active Problems Problem Noted Date Diagnosed Date [...] hypothyroidism 04/12/2021 Coronary artery disease invo lving [place] coronary artery of [place] heart without angina pectoris 09/27/2020 S/P angioplasty [...] as of this encounter (statuses as of 11/05/2023) Resolved Problems Problem Noted Date Diagnosed Date [...] as of this encounter (statuses as of 11/05/2023) Immunizations Name Administration Dates Next Due COVID-19 [...] 11/03/2023 9:34 AM EDT Pharmacy Selected: [facility] [id number] Medication Orders Placed This Encounter Medications [...] EDT Office Visit Nutrition & Weight Management, [facility] [address] [place] [address] Anai Schultz PA-C [address] [place] [address] 12/22/2023 1:40 PM EDT Office Visit Family [facility] [address] [place] [address] Keagan Sanchez MD [address] [place] [address] 08/09/2024 10:00 AM EDT Office Visit Orthopaedics [facility] [address] [facility] [place] [address] Sami Angelo DO [address] [place] [address] 10/07/2024 2:40 PM EDT Office Visit Dermatology [facility] [address] [place] [address] Alden Ann PA-C [address] [place] [address] Scheduled Procedures Name Priority Associated Diagnoses Date/Ti [...] 09/10/2022, Additional history exists GFR 10/30/2024 10/31/2023, 060 05/2023, 08/23/2023, Additional history exists DTaP,Tdap,and Td Vaccines (3 - Td or Tdap) 10/10/2026 10/10/2016, 10/26/2005 Colonoscopy 04/18/2027 04/18/2022, 03/25, 08/10/2013, Additional history exists Colorectal Cancer Screening 04/18/2027 VITAMIN D LEVEL ONCE IN A LIFETIME-USE SMARTSET# 16498 Completed 01/28/2022, 02/21/2015, 12/30/2011 RETIRED - COLONOSCOPY-EVERY [...] this encounter Medical Devices Implanted Type Area Ginner Device Identifier Shelf Expiration Date Model / Serial / Lot Screw Jami Lacie 3 Ti Set - [id number] Implanted:Qty: 6 on 03/10/2012 [place] [facility] [place] Bilateral: Spine Lumbar LEVON : SPINE [id number] / / Screw Lacie Pa Ti 6.5x50mm - [id number] Implanted:Qty: 4 on 03/10/2012 at [place] [facility] [place] Bilateral: Spine Lumbar LEVON : SPINE [id number] / / [place] Xia3 7.0 X 40mm Screws Implanted:Qty: 2 on 03/10/2012 at [place] [facility] [place] Bilateral: Spine Lumbar [id number] / / Shaun Lacie 3 Ti 6x70mm - [id number] Implanted:Qty: 1 on 03/10/2012 at [place] [facility] [place] N/A: Spine Lumbar LEVON : SPINE [id number] / / Shaun Lacie 3 Ti Max 6x80mm - [id number] Implanted:Qty: 1 on 03/10/2012 at [place] [facility] [place] N/A: Spine Lumbar LEVON : SPINE [id number] / / 9 X 25 X 4 - 8 Avs Wedge Nose Cage Implanted:Qty: 1 on 03/10/2012 at [place] [facility] [place] N/A: Spine Lumbar [id number] / / Stent Synergy Xd Mr 2.59m53de - [id number] Implanted:Qty: 1 on 09/20/2020 at [facility] [place] [employer] [id number] 04/18/2022 [id number] / / [id number] Stent Synergy Xd Mr 2.71f72dq - [id number] Implanted:Qty: 1 on 09/20/2020 at [facility] [place] [employer] [id number] 04/25/2022 [id number] 220 / / [id number] Screw Locking 4.5mm 15mm - [id number] Implanted:Qty: 1 on 07/11/2022 by Sami Angelo DO at [place] [facility] [place] Right: Shoulder [employer] 11/22/2025 108-4515 / / [id number] Bseplate Jasmeet Cmntlss W Scrw - [id number] Implanted:Qty: 1 on 07/11/2022 by Sami Angelo DO at [place] [facility] [place] Right: Shoulder [employer] 03/24/2027 105-0029 / / [id number] [employer] Rev Thee W Scrw - [id number] Implanted:Qty: 1 on 07/11/2022 by Sami Angelo DO at [place] [facility] [place] Right: Shoulder [employer] 04/24/2027 105-3610 / / [id number] Screw Locking 4.5mm 15mm - [id number] Implanted:Qty: 1 on 07/11/2022 by Sami Angelo DO at [place] [facility] [place] Right: Shoulder [employer] 03/24/2027 108-4515 / / [id number] Screw Locking 4.5mm 20mm - [id number] Implanted:Qty: 1 on 07/11/2022 by Sami Angelo [...] / [id number] Screw Locking 4.5mm 20mm - [id number] Implanted:Qty: 1 on 07/11/2022 by Sami Angelo, [...] Pace Spouse Health Care Agent Care Teams Retail Account Representative Relationship Specialty Start Date End Date Keagan Sanchez MD [address] [place] [address] PCP - General Family Medicine 10/07/23 documented as of this encounter
--- OUTSIDE RECORDS SUMMARY | 2024-03-06 12:39 | External Medical Summary | Summary of Care ---
Author Name Unknown Organization [facility] Address [address] [place] [address] Phone [phone] Care Team Providers Care Chief Procurement Officer Name Role Phone Keagan Sanchez MD Primary Care Provider [phone] Reason for Visit * Reason Comments Abdominal Pain * Auth/Cert Specialty Diagnoses / Procedures Referred By Lynn t Referred To Contact Diagnoses constipation, r/o bowel obst [facility] [address] [place] [address] Phone: [phone] Emergency Medicine [facility] [address] [place] [address] Referral ID Status Reason Start Date Expiration Date Visits Re quested Visits Authorized [id number] Encounter Details Date Type Department Care Team (Late st Contact Info) Description 10/31/2023 3:43 PM EDT - 10/31/2023 5:46 PM EDT [facility] [address] [place] [address] Aly Castañeda DO [address] [facility] [address] Enteritis (Primary Dx) Discharge Disposition: Home - Self Care Allergies Active Allergy Reactions Criticality Noted Date Comments Adhesive Tape 03/31/2023 Other Reaction(s): Tape- redness, paper tape/coban "ok", [id number] TAPE OK OR COBAN Clarithromycin High 03/31/2023 Other Reaction(s): Rash, diarrhea, RASH,DIARRHEA Duloxetine Hcl Flushing,Nausea/vomi tin g High 10/20/2019 Erythromycin Base Rash 03/14/2004 Orlistat Low 03/31/2023 Other Reaction(s): GI UPSET Penicillins Rash 03/14/2004 Prednisone Other (Please comment) High 10/10/2023 pancreatitis Sulfa Antibiotics Rash 03/14/2004 documented as of this encounter (statuses as of 11/01/2023) Medications Medication Sig Dispensed Refills Start Date [...] MOUTH IN THE MORNING 90 Tablet 3 05/26/202305/25/2024 Active Levothyroxine Sodium 112 MCG Oral Tablet [...] as of this encounter (statuses as of 11/01/2023) Active Problems Problem Noted Date Diagnosed Date [...] hypothyroidism 04/12/2021 Coronary artery disease invo l[facility] coronary artery of [place] heart without angina pectoris 09/27/2020 S/P angioplasty [...] as of this encounter (statuses as of 11/01/2023) Resolved Problems Problem Noted Date Diagnosed Date [...] as of this encounter (statuses as of 11/01/2023) Immunizations Name Administration Dates Next Due COVID-19 [...] Sign Reading Time Taken Comments Blood Pressure 122/67 10/31/2023 5:00 PM EDT Pulse 62 10/31/2023 5:00 PM EDT Temperature 36.3 C (97.3 F) 10/31/2023 3:46 PM ED T Respiratory Rate 16 10/31/2023 5:00 PM EDT Oxygen Saturation 95% 10/31/2023 5:00 PM EDT Inhaled Oxygen Concentration - - Weight 78 kg (172 lb) 10/31/2023 3:46 PM EDT Height - - Body Mass Index 29.52 10/03/2023 8:38 AM EDT documented in this [...] this encounter Discharge Instructions * Discharge Instructions* Atrhur Hernandez PA-C - 10/31/2023 5:33 PM EDT You have been seen and evaluated in the Emergency Department of [facility]. Please readthe discharge instructions below regarding your care. Summary Of Today's Visit: You were seen today for abdominal discomfort, nausea, and diarrhea. Your CT scan and labs were overall reassuring against any dangerous findings. The CT did show mild enteritis which is an inflammation of your bowel but there was no acute diverticulitis or bowel obstruction discovered. New Prescriptions/Medication Changes: Please continue taking your zofran and tramadol as prescribed for nausea and pain control. You may also utilize Tylenol for your pain, please do not take more than 3000mg per day. Follow Up/Continuation Of Care: Follow up with your family doctor as needed. Other Important Information/Return Instructions: Return to the Emergency Department or seek medical attention if you notice or have worsening of anyof the following problems: severe headache , changes in your vision, feel like you may pass out, chest pain, chest pressure, chest tightness, difficulty breathing, or any worsening of your condition. Thank you for allowing us to care for you. Our goal is to provide you the best care. If you have any emergency needs in the future we will be glad to help you again. We are here to serve you! documented in this encounter ED Notes * Talia Álvarez RN - 10/31/2023 3:47 PM EDT Patient has had abd pain and constipation for several days, was seen at PCP and was given miralax, that has relieved her constipation, she is still having LLQ pain and nausea. Hx of diverticulitis. Eating and drinking fine. documented in this encounter Miscellaneous Notes * Pt Handout (on AVS) - Arthur Hernandez PA-C - 10/31/2023 5:30 PM EDT Images from the original note were not included. [id number] Viral Gastroenteritis (Adult) Gastroenteritis is often called the stomach flu. But it has nothing to do with influenza. It's mostoften caused by a virus that affects the stomach and intestinal tract. Most bouts last from 2 to 7 days. Common viruses causing gastroenteritis include norovirus, rotavirus, and hepatitis A. Nonviralcauses of gastroenteritis include bacteria, parasites, and toxins. The danger from repeated vomiting or diarrhea is dehydration. This is when the body loses too much fluid. When this occurs, you must replace the body fluids. Antibiotics aren't an effective treatment for this condition because it's caused by a virus. Symptoms of viral gastroenteritis may include: Watery, loose stools Stomach pain or belly (abdominal) cramps Fever and chills Nausea and vomiting Loss of bowel control Headache Home care Gastroenteritis is spread by contact with the stool or vomit of an infected person. This can occur from person to person or from contact with a contaminated surface. Follow these guidelines when caring for yourself at home: If symptoms are severe, rest at home for the next 24 hours or until you are feeling better. Wash your hands with soap and clean, running water or use alcohol-based link trainer operator to prevent thespread of infection. Wash your hands after touching anyone who is sick. Wash your hands or use alcohol-based link trainer operator after using the toilet and before meals. Clean the toilet after each use. Remember these tips when preparing food: People with diarrhea should not prepare or serve food to others. When preparing foods, wash yourhands before and after. Wash your hands after using cutting boards, counter tops, knives, or utensils that have been in contact with raw food. Dry your hands with a single-use disposable towel. Keep uncooked meats away from cooked and rscqw-nd-vvw foods. Medicine Use acetaminophen or nonsteroidal anti-inflammatory drugs (NSAID) such as ibuprofen or naproxen to control fever, unless another medicine was given. If you have chronic liver or kidney disease, talk with your healthcare provider before using these medicines. Also talk with your provider if you've had a stomach ulcer or gastrointestinal bleeding. Don't give aspirin to anyone under 18 years of age who is ill with a fever. It may result in a serious illness called Lucy syndrome that may cause severe liver damage or even . Don't use NSAIDS if you're already taking one for another condition (like arthritis) or are on aspirin (such as for heart disease or after a stroke). If medicines for vomiting or diarrhea are prescribed, take these only as directed. Nausea and diarrhea medicines are generally OK unless you have bleeding, fever, or severe abdominal pain. Diet Follow these guidelines for food: Water and liquids are important so you don't get dehydrated. Drink small amounts often or suck on ice chips as tolerated if you are vomiting. If you eat, stay away from fatty, greasy, spicy, or fried foods. Don't eat dairy if you have diarrhea. This can make diarrhea worse. Avoid tobacco, alcohol, and caffeine. These may worsen symptoms. During the first 24 hours (the first full day), follow the diet below: Beverages. Sip sports drinks, soft drinks without caffeine, michael elijah, mineral water (plain or flavored), decaffeinated tea and coffee. If you are very dehydrated, sports drinks aren't a good choice. They have too much sugar and not enough electrolytes. In this case, use products called oral rehydration solutions. You can buy these at pharmacies and grocery stores. Soups. Eat clear broth, consomm, and bouillon. Desserts. Eat gelatin, ice pops, and fruit juice bars. During the next 24 hours (the second day), you may add the following to the above: Hot cereal, plain toast, bread, rolls, and crackers Plain noodles, rice, mashed potatoes, chicken noodle or rice soup Unsweetened canned fruit (avoid pineapple), bananas Limit fat intake to less than 15 grams per day. Do this by avoiding margarine, butter, oils, mayonnaise, sauces, gravies, fried foods, peanut butter, meat, poultry, and fish. Limit fiber and avoid raw or cooked vegetables, fresh fruits (except bananas), and bran cereals. Limit caffeine and chocolate. Don't use spices or seasonings other than salt. Limit dairy products. Avoid alcohol. During the next 24 hours: Gradually resume a normal diet as you feel better and your symptoms improve. If at any time it starts getting worse again, go back to clear liquids until you feel better. Follow-up care Follow up with your healthcare provider, or as advised. Call your provider if you don't get better within 24 hours or if diarrhea lasts more than a few days. It's also important to follow up if you can't keep down liquids, which can lead to becoming dehydrated. If a stool (diarrhea) sample was taken, call as directed for the results. Call 911 Call 911 if any of these occur: Trouble breathing Chest pain Confused Severe drowsiness or trouble awakening Fainting or loss of consciousness Rapid heart rate Seizure Stiff neck When to get medical advice Call your healthcare provider right away if any of these occur: Abdominal pain that gets worse Continued vomiting (can't keep liquids down) Frequent diarrhea (more than 5 times a day) Blood in vomit or stool (black or red color) Dark urine, reduced urine output, or extreme thirst Weakness or dizziness Drowsiness Fever of 100.4F (38C) or higher, or as advised by your provider Bossman moctezuma Last Reviewed Date: 05/22/202119993040-5504 [email or web address]. All rights reserved. This information is not intended as a substitute for professional medical care. Always follow your healthcare professional's instructions. documented in this encounter Plan of Treatment Upcoming Encounters Date Type Department Care Team (Late st Contact Info) Description 11/19/2023 10:00 AM EDT Office Visit Nutrition & Weight Management, [facility] [address] [facility] [place] [address] Anai Schultz PA-C [address] [facility] [place] [address] 12/22/2023 1:40 PM EDT Office Visit Family Practice [address] [address] Keagan Sanchez MD [address] [place] [address] 08/09/2024 10:00 AM EDT Office Visit Orthopaedics Amie Alejandre [address] [place] [address] Sami Angelo DO [address] [place] [address] 10/07/2024 2:40 PM EDT Office Visit Dermatology [facility] [address] [place] [address] Alden Ann PA-C [address] [facility] [place] [address] Scheduled Procedures Name Priority Associated Diagnoses Date/Ti [...] D LEVEL ONCE IN A LIFETIME-USE SMARTSET# 29525 Completed 01/28/2022, 02/21/2015, 12/30/2011 RETIRED - COLONOSCOPY-EVERY [...] this encounter Medical Devices Implanted Type Area Sieve Grader Tender Device Identifier Shelf Expiration Date Model / Serial / Lot Screw Jami Lacie 3 Ti Set - [id number] Implanted:Qty: 6 on 03/10/2012 at [place] [facility] Bilateral: Spine Lumbar LEVON : SPINE [id number] / / Screw Lacie Pa Ti 6.5x50mm - [id number] Implanted:Qty: 4 on 03/10/2012 at [place] [facility] Bilateral: Spine Lumbar LEVON : SPINE [id number] / / Levon Xia3 7.0 X 40mm Screws Implanted:Qty: 2 on 03/10/2012 at [place] [facility] Bilateral: Spine Lumbar [id number] / / Shaun Lacie 3 Ti 6x70mm - [id number] Implanted:Qty: 1 on 03/10/2012 at [place] [facility] N/A: Spine Lumbar LEVON : SPINE [id number] / / Shaun Lacie 3 Ti Max 6x80mm - [id number] Implanted:Qty: 1 on 03/10/2012 at [place] [facility] N/A: Spine Lumbar LEVON : SPINE [id number] / / 9 X 25 X 4 - 8 Avs Wedge Nose Cage Implanted:Qty: 1 on 03/10/2012 at [place] [facility] N/A: Spine Lumbar [id number] / / Stent Synergy Xd Mr 2.30p42ip - [id number] Implanted:Qty: 1 on 09/20/2020 at [facility] [employer] [id number] 04/18/2022 [id number] 220 / / [id number] Stent Synergy Xd Mr 2.83b15rq - [id number] Implanted:Qty: 1 on 09/20/2020 at [facility] [employer] [id number] 04/25/2022 [id number] 220 / / [id number] Screw Locking 4.5mm 15mm - [id number] Implanted:Qty: 1 on 07/11/2022 by Sami Angelo DO at [place] [facility] Right: Shoulder [employer] 11/22/2025 [id number] / / [id number] Bseplate Jasmeet Cmntlss W Scrw - [id number] Implanted:Qty: 1 on 07/11/2022 by Sami Angelo DO at [place] [facility] Right: Shoulder [employer] 03/24/2027 105-0029 / / [id number] Glenosphere Rev Thee W Scrw - [id number] Implanted:Qty: 1 on 07/11/2022 by Sami Angelo DO at [place] [facility] Right: Shoulder [employer] 04/24/2027 105-3610 / / [id number] Screw Locking 4.5mm 15mm - [id number] Implanted:Qty: 1 on 07/11/2022 by Sami Angelo DO at [place] [facility] Right: Shoulder [employer] 03/24/2027 108-4515 / / [id number] Screw Locking 4.5mm 20mm - [id number] Implanted:Qty: 1 on 07/11/2022 by Sami Angelo DO at [place] [facility] Right: Shoulder [employer] 03/24/2027 108-4520 / / [id number] Humelock Ii Stem Ta6v Size 12 Cementless Implanted:Qty: 1 on 07/11/2022 by Sami Angelo DO at [place] [facility] Right: Shoulder [employer] 10/22/2026 [id number] / / [id number] Cortical Screw Ta6v, 5mm, L. 24mm Implanted:Qty: 1 on 07/11/2022 by Sami Angelo DO at [place] [facility] Right: Shoulder [employer] 09/22/2023 107-4524 / / [id number] Humeral Cup 135/145 Degree, Standard, 36/+6 Implanted:Qty: 1 on 07/11/2022 by Sami Angelo DO at [place] [facility] Right: Shoulder 02/21/2025 [id number] / / [id number] Screw Locking 4.5mm 20mm - [id number] Implanted:Qty: 1 on 07/11/2022 by Sami Angelo DO at [place] [facility] Right: Shoulder [employer] 03/24/2027 108-4520 / / [id number] documented as of this encounter Procedures Procedure Name Priority Date/Time Associated Diagnosis Comments LACTATE,WHOLE BLOOD Routine 10/31/2023 4 :[address] ABD/PELVIS W IV CONTRAST - WO ORAL CONTRAST STAT 10/31/2023 4:27 PM EDT DIFFERENTIAL, AUTOMATED STAT 10/31/2023 4:14 PM EDT HEPATIC FUNCTION PANEL STAT 10/31/2023 4:14 PM EDT BASIC METABOLIC PANEL STAT 10/31/2023 4:14 PM EDT CBC STAT 10/31/2023 4:14 PM EDT LIPASE STAT 10/31/2023 4:14 PM EDT CBC STAT 10/31/2023 4:14 PM EDT EXTRA GREEN TOP WITH GEL Routine 10/31/2023 4:13 PM EDT EXTRA TUBES Routine 10/31/2023 4:13 PM EDT documented in this encounter Results * LACTATE,WHOLE BLOOD (10/31/2023 4:35 PM EDT) Lactate, Whole Blood 1.4 0.4 - 2.0 mmol/L 10/31/2023 4:39 PM EDT [facility] Blood Venous blood specimen / Unknown 10/31/2023 4:35 PM EDT 10/31/2023 4:38 PM EDT Arthur Hernandez PA-C LAB BLO[facility] [place] [id number] [place] [address] * CT ABD/PELVIS W IV CONTRAST - WO ORAL CONTRAST (10/31/2023 4:27 PM EDT) Anatomical Region Laterality Modality Body, Abdomen, Pelvis Computed T omography 10/31/2023 4:18 PM EDT Impressions 10/31/2023 4:51 PM EDT IMPRESSION: 1. Small bowel wall thickening, most pronounced in the left upper abdomen, may represent mild enteritis. 2. Findings of hepatic steatosis. 3. Colonic diverticulosis without findings of active diverticulitis. THIS DOCUMENT HAS BEEN ELECTRONICALLY SIGNED BY EL GHOTRA MD Narrative 10/31/2023 4:51 PM EDT PROCEDURE INFORMATION: Exam: CT Abdomen And Pelvis With Contrast Exam date and time: 10/31/2023 4:18 PM Age: 63 years old Clinical indication: Abdominal pain; Generalized; Prior surgery; Surgery date: 6+ months; Surgery type: Bowel resection 2001; Additional info: History of diverticulitis, history of bowel resection, constipation, left lower quadrant pain/abdominal bloating TECHNIQUE: Imaging protocol: Computed tomography of the [...] W IV CONTRAST - WO ORAL CONTRAST 08/24/2023 12:55 AM FINDINGS: Tubes, catheters and devices: Spinal cord stimulator present with leads overlying the lower thoracic spine. Lungs: Lung bases are clear. Pleural spaces: No pleural effusions. Esophagus: The visualized esophagus has a normal appearance. Liver: The liver is mildly enlarged and has an overall low density appearance consistent with hepatic steatosis. Gallbladder and biliary ducts: There has been a cholecystectomy. Pancreas: Normal. No ductal dilation. Spleen: Normal. No splenomegaly. Adrenal glands: Normal. No mass. Kidneys and ureters: Normal. No hydronephrosis. Stomach and bowel: The stomach is normal. Small bowel wall thickening, most pronounced in the left upper abdomen, may represent mild enteritis. Operative changes of segmental sigmoid colon resection. Colonic diverticulosis without findings of active diverticulitis. Appendix: No evidence of appendicitis. Intraperitoneal space: Unremarkable. No free air. No significant fluid collection. Vasculature: Unremarkable. No abdominal aortic aneurysm. Lymph nodes: Unremarkable. No enlarged lymph nodes. Urinary bladder: Unremarkable as visualized. Reproductive: The patient is status post hysterectomy. No adenexal masses are seen. Bones/joints: Vertical rods and pedicle screws within the lumbar spine. Chronic L1 compression fracture. Soft tissues: Unremarkable. Procedure Note El Ghotra MD - 10/31/2023 PROCEDURE INFORMATION: Exam: CT Abdomen And Pelvis With Contrast Exam date and time: 10/31/2023 4:18 PM Age: 63 years old Clinical indication: Abdominal pain; Generalized; Prior surgery; Surgerydate: 6+ months; Surgery type: Bowel resection 2001; Additional info: History of diverticulitis, history of bowel resection, constipation, left lowerquadrant pain/abdominal bloating TECHNIQUE: Imaging protocol: Computed tomography of the [...] W IV CONTRAST - WO ORAL CONTRAST 08/24/2023 12:55 AM FINDINGS: Tubes, catheters and devices: Spinal cord stimulator present with leads overlying the lower thoracic spine. Lungs: Lung bases are clear. Pleural spaces: No pleural effusions. Esophagus: The visualized esophagus has a normal appearance. Liver: The liver is mildly enlarged and has an overall low densityappearance consistent with hepatic steatosis. Gallbladder and biliary ducts: There has been a cholecystectomy. Pancreas: Normal. No ductal dilation. Spleen: Normal. No splenomegaly. Adrenal glands: Normal. No mass. Kidneys and ureters: Normal. No hydronephrosis. Stomach and bowel: The stomach is normal. Small bowel wall thickening,most pronounced in the left upper abdomen, may represent mild enteritis.Operative changes of segmental sigmoid colon resection. Colonic diverticulosiswithout findings of active diverticulitis. Appendix: No evidence of appendicitis. Intraperitoneal space: Unremarkable. No free air. No significant fluid collection. Vasculature: Unremarkable. No abdominal aortic aneurysm. Lymph nodes: Unremarkable. No enlarged lymph nodes. Urinary bladder: Unremarkable as visualized. Reproductive: The patient is status post hysterectomy. No adenexal massesare seen. Bones/joints: Vertical rods and pedicle screws within the lumbar spine.Chronic L1 compression fracture. Soft tissues: Unremarkable. IMPRESSION IMPRESSION: 1. Small bowel wall thickening, most pronounced in the left upperabdomen, may represent mild enteritis. 2. Findings of hepatic steatosis. 3. Colonic diverticulosis without findings of active diverticulitis. THIS DOCUMENT HAS BEEN ELECTRONICALLY SIGNED BY EL GHOTRA MD Arthur Hernandez PA-C RAD CT * (ABNORMAL) DIFFERENTIAL, AUTOMATED (10/31/2023 4:14 PM EDT) WBC 4.63 4.00 - 10.80 K/uL 10/31/2023 4:28 PM EDT [facility] Neutrophils % 37.0(L) 40.0 - 75.0 % 10/31/2023 4:28 PM EDT [facility] Lymphocytes % 53.3(H) 18.0 - 42.0 % 10/31/2023 4:28 PM EDT [facility] Monocytes % 8.4 1.0 - 11.0 % 10/31/2023 4:28 PM EDT [facility] Eosinophils % 1.1 0.0 - 6.0 % 10/31/2023 4:28 PM EDT [facility] Basophils % 0.2 0.0 - 2.0 % 10/31/2023 4:28 PM EDT [facility] Absolute Neutrophils 1.71(L) 1.80 - 7.70 K/uL 10/31/2023 4:28 PM EDT [facility] Absolute Lymphocytes 2.47 1.00 - 4.80 K/ul 10/31/2023 4:28 PM EDT [facility] Absolute Monocytes 0.39 0.00 - 1.10 K/uL 10/31/2023 4:28 PM EDT [facility] Absolute Eosinophils 0.05 0.00 - 0.70 K/uL 10/31/2023 4:28 PM EDT [facility] Absolute Basophils 0.01 0.00 - 0.20 K/uL 10/31/2023 4:28 PM EDT [facility] Blood Venous blood specimen / Unknown Venipuncture / Unknown 10/31/2023 4:14 PM EDT 10/31/2023 4:24 PM EDT Arthur Hernandez PAJohn LAB BLOOD [facility] [address] [address] * (ABNORMAL) CBC (10/31/2023 4:14 PM EDT) WBC 4.63 4.00 - 10.80 K/uL 10/31/2023 4:28 PM EDT [facility] RBC 4.26 3.85 - 5.15 M/uL 10/31/2023 4:28 PM EDT [facility] HGB 11.8(L) 12.0 - 15.3 g/dL 10/31/2023 4:28 PM EDT [facility] HCT 36.7 36.0 - 45.2 % 10/31/2023 4:28 PM EDT [facility] MCV 86.2 81.5 - 97.5 fL 10/31/2023 4:28 PM EDT [facility] MCH 27.7 27.0 - 34.0 pg 10/31/2023 4:28 PM EDT [facility] MCHC 32.2 32.0 - 36.0 g/dL 10/31/2023 4:28 PM EDT [facility] RDW 14.4 11.5 - 15.5 % 10/31/2023 4:28 PM EDT [facility] PLT 182 140 - 400 K/uL 10/31/2023 4:28 PM EDT [facility] MPV 10.4 6.6 - 11.1 fL 10/31/2023 4:28 PM EDT [facility] Blood Venous blood specimen / Unknown Venipuncture / Unknown 10/31/2023 4:14 PM EDT 10/31/2023 4:24 PM EDT Arthur Kush Hernandez PA-C LAB BLOOD [facility] Performing Organization Address [facility] de Phone Number LABORATORY [address] [address] * LIPASE (10/31/2023 4:14 PM EDT) Lipase 49 13 - 60 U/L 10/31/2023 4:49 PM EDT [facility] Blood Venous blood specimen / Unknown Venipuncture / Unknown 10/31/2023 4:14 PM EDT 10/31/2023 4:24 PM EDT Arthur DUPREE-C LAB BLOOD [facility] Performing Organization Address [facility] de Phone Number LABORATORY [address] [address] * (ABNORMAL) HEPATIC FUNCTION PANEL (10/31/2023 4:14 PM EDT) Albumin 4.4 3.8 - 5.0 g/dL 10/31/2023 4:49 PM EDT [facility] AST 56(H) 10 - 35 U/L 10/31/2023 4:49 PM EDT [facility] Alkaline Phosphatase 60 35 - 130 U/L 10/31/2023 4:49 PM EDT [facility] ALT 74(H) 10 - 35 U/L 10/31/2023 4:49 PM EDT LAB[facility] Bilirubin, Total 0.2 <=1.2 mg/dL 10/31/2023 4:49 PM EDT [facility] Bilirubin, Direct <0.2 0.0 - 0.3 mg/dL 10/31/2023 4:49 PM EDT LABOR[facility]ORY [facility] Protein 6.9 6.0 - 8.3 g/dL 10/31/2023 4:49 PM EDT [facility] Blood Venous blood specimen / Unknown Venipuncture / Unknown 10/31/2023 4:14 PM EDT 10/31/2023 4:24 PM EDT Arthur Hernandez PA-C LAB BLOOD [facility] Performing Organization Address City/[facility]/ZIP Co de Phone Number LABORATORY [address] [address] * (ABNORMAL) BASIC METABOLIC PANEL (10/31/2023 4:14 PM EDT) Pathologist [facility] BUN 10 6 - 20 mg/dL 10/31/2023 4:49 PM EDT [facility] Creatinine 0.9 0.5 - 1.0 mg/dL 10/31/2023 4:49 PM EDT [facility] Estimated Glomerular Filtration Rate 77 >=60 mL/min 10/31/2023 4:49 PM EDT [facility] Comment:eGFR is calculated b ased on the CKD-EPI 2020 equation. Sodium 133(L) 135 - 146 mmol/L 10/31/2023 4:49 PM EDT [facility] Potassium 3.9 3.5 - 5.1 mmol/L 10/31/2023 4:49 PM EDT [facility] Chloride 99 98 - 107 mmol/L 10/31/2023 4:49 PM EDT [facility] CO2 21(L) 22 - 32 mmol/L 10/31/2023 4:49 PM EDT [facility] Anion Gap 13 7 - 15 mmol/L 10/31/2023 4:49 PM EDT [facility] Glucose 74 70 - 120 mg/dL 10/31/2023 4:49 PM EDT [facility] Calcium 9.0 8.4 - 10.2 mg/dL 10/31/2023 4:49 PM EDT [facility] Blood Venous blood specimen / Unknown Venipuncture / Unknown 10/31/2023 4:14 PM EDT 10/31/2023 4:24 PM EDT Arthur Hernandez PA-C LAB BLOOD ORDERA BLES Performing Organization Address City/[facility]/ZIP Co de Phone Number LABORATORY [address] [address] * EXTRA GREEN TOP WITH GEL (10/31/2023 4:13 PM EDT) Blood Venous blood specimen / Unknown 10/31/2023 4:13 PM EDT 10/31/2023 4:24 PM EDT Aly Castañeda DO LAB BLOOD ORDERABL ES [facility] [address] [place] [address] documented in this encounter Visit Diagnoses Diagnosis Enteritis- Primary Other and unspecified noninfectious gastroenteritis and colitis documented in this encounter Administered Medications Inactive Administered Medications - up to 3 most recent administrations Medication Order MAR Action Action Date Dose Rate Site Iopamidol (Isovue 370) inj 80 mL 80 mL, Intravenous, ONCE, On Fri10/31/23 at 1700, For 1 dose, Radiology Medication Routing (Non-IR) Given 10/31/2023 4:28 PM EDT 80 mL morphine sulfate inj 2 mg 2 mg, Intravenous, ONCE, On Fri10/31/23 at 1700, For 1 dose Given 10/31/2023 4:22 PM EDT 2 mg NSS 0.9% 1,000 mL bolus infusion Intravenous, at 1,000 mL/hr Administer over 60 Minutes, Administer entire volume within 60 minutes or less., ONCE, 1 dose, On Fri10/31/23 at 1645 New Bag 10/31/2023 4:17 PM EDT 1,000 mL 1000 mL/hr ondansetron (Zofran) inj 4 mg 4 mg, IV Push, ONCE, On Fri10/31/23 at 1645, For 1 dose Given 10/31/2023 4:17 PM EDT 4 mg documented in this encounter Active and Recently Administered Medications Times are shown in EDT. Scheduled Medication Order 10/29/2023 10/30/2023 10/31/2023 Iopamidol (Isovue 370) inj 80 mL (COMPLETED) 80 mL, Intravenous, ONCE, On Fri10/31/23 at 1700, For 1 dose, Radiology Medication Routing (Non-IR) 1628 (Given - Provid er: Radha Sharma, RT) morphine sulfate inj 2 mg (COMPLETED) 2 mg, Intravenous, ONCE, On Fri10/31/23 at 1700, For 1 dose 1622 (Given - Provid er: Talia Álvarez RN) NSS 0.9% 1,000 mL bolus infusion (COMPLETED) Intravenous, at 1,000 mL/hr Administer over 60 Minutes, Administer entire volume within 60 minutes or less., ONCE, 1 dose, On Fri10/31/23 at 1645 1617 (New Bag - Prov ider: Talia Álvarez RN)1737 (Stopped - Provider: Talia Álvarez RN) ondansetron (Zofran) inj 4 mg (COMPLETED) 4 mg, IV Push, ONCE, On Fri10/31/23 at 1645, For 1 dose 1617 (Given - Provid er: Talia Álvarez RN) documented in this encounter Advance Directives [...] Agents on File Name Relationship Healthcare Agent [facility] p Communication Donny Pace Spouse Health Care Agent [phone] (Mobile) Care Teams Chief Procurement Officer Relationship Specialty Start Date End Date Keagan Sanchez MD [address] [place] [address] PCP - General Family Medicine 10/07/23 documented as of this encounter
--- OUTSIDE RECORDS SUMMARY | 2024-03-06 12:39 | External Medical Summary ---
Author Name Unknown Address Unknown Organization K1G:LABORATORY [facility] - [address] [place] [id number] Laboratory Report Ordering Provider Test Date Status MERRILL ZARATE 10/31/2023 16:14:52 Final Observation Date Value Abnormality Reference (Units ) Status Lipase 10/31/2023 16:14:52 49 13-60 (U/L ) Final Performing Location LABORATORY [facility] - [address] [place] [phone]
--- OUTSIDE RECORDS SUMMARY | 2024-03-06 12:39 | External Medical Summary | Summary of Care ---
Author Name Unknown Organization [facility] Address [address] [facility] [place] [address] Phone [phone] Care Team Providers Care Patient Assessment Coordinator Name Role Phone Keagan Sanchez MD Primary Care Provider [phone] Reason for Visit * Reason Onset Date Comments Medication Refill 11/06/2023 Encounter Details Date Type Department Care Team ([facility] st Contact Info) Description 11/06/[address] [address] Keagan Sanchez MD [address] [place] [phone] Allergies Active Allergy Reactions Criticality Noted Date Comments Adhesive Tape 03/31/2023 Other Reaction(s): Tape- redness, paper tape/coban "ok", [id number] TAPE OK OR COBAN Clarithromycin High 03/31/2023 Other Reaction(s): Rash, diarrhea, RASH,DIARRHEA Duloxetine Hcl Flushing,Nausea/vomi tin g High 10/20/2019 Erythromycin Base Rash 03/14/2004 Orlistat Low 03/31/2023 Other Reaction(s): GI UPSET Penicillins Rash 03/14/2004 Prednisone Other (Please comment) High 10/10/2023 pancreatitis Sulfa Antibiotics Rash 03/14/2004 documented as of this encounter (statuses as of 11/06/2023) Medications Medication Sig Dispensed Refills Start Date [...] EVERY MORNING 90 Tablet 3 11/07/2022 4 Active Pantoprazole Sodium 40 MG Oral [...] evening meals. 60 Tablet 4 11/06/2023 Active metFORMIN HCl 500 MG Oral Tablet (Glucophage) Take 1 Tablet by mouth 2 times a day with morning and evening meals. 60 Tablet 4 05/15/2023 Discontinue d(Refill) documented as of this encounter (statuses as of 11/06/2023) Active Problems Problem Noted Date Diagnosed Date [...] hypothyroidism 04/12/2021 Coronary artery disease invo lving [place] coronary artery of [place] heart without angina pectoris 09/27/2020 S/P angioplasty [...] as of this encounter (statuses as of 11/06/2023) Resolved Problems Problem Noted Date Diagnosed Date [...] as of this encounter (statuses as of 11/06/2023) Immunizations Name Administration Dates Next Due COVID-19 [...] encounter Miscellaneous Notes * Telephone Encounter - Shane Trejo PA-C - 11/06/2023 2:24 PM EDTSigned Prescriptions: Disp Refills metFORMIN HCl 500 MG Oral Tablet (Glucopha*60 Tab*4 Sig: Take 1 Tablet by mouth 2 times a day with morning and evening meals.Authorizing Provider: SHANE TREJO-- * Telephone Encounter - Yi Rabago OSA - 11/06/2023 8:33 AM EDT Pending Prescriptions: Disp Refills metFORMIN HCl 500 MG Oral Tablet (Glucoph*60 Tab*4 Sig: Take 1 Tablet by mouth 2 times a day with morning and evening meals. Last Visit: 10/28/2023 (in office), 10/31/2023 (telemedicine) Next Visit: 12/22/2023 Last date the medication was ordered: 05/15/23 Patient Active Problem List Diagnosis Migraine with [...] descending (LAD) artery Coronary artery disease involving [place] coronary artery of [place] heart without angina pectoris S/P angioplasty with [...] artery disease due to lipid rich plaque Labs: Lab Results Component Value Date/Time CREAT GFR 1.04 06/07/2018 06:51 AM CREATININE - [facility] 0.9 10/31/2023 04:14 PM CREATININE - [facility] 1.0 02/26/2020 09:17 AM CREATININE SALONI - [facility] 24 04/19/2022 11:07 AM CREATININE-OUTSIDE LAB 0.93 08/18/2017 12:00 AM Lab Results Component Value Date/Time POTASSIUM - [facility] 3.9 10/31/2023 04:14 PM POTASSIUM - [facility] 3.9 02/26/2020 09:17 AM POTASSIUM POCT - [facility] 4.5 03/10/2012 02:40 PM POTASSIUM, WHOLE BLOOD - [facility] 4.8 03/10/2012 03:24 PM POTASSIUM-OUTSIDE LAB 4.1 08/18/2017 12:00 AM Lab Results Component Value Date/Time TSH - [facility] 3.36 07/17/2023 09:07 AM TSH - [facility] 2.74 10/20/2019 08:59 AM Lab Results Component Value Date/Time LDL (DIRECT MEASURE)-OUTSIDE LAB 158 (A) 07/18/2012 12:00 AM LDL CHOLESTEROL (CALCULATED) - [facility] 40 08/24/2023 12:22 AM LDL CHOLESTEROL (CALCULATED) - [facility] 47 07/17/2023 09:07 AM LDL CHOLESTEROL (CALCULATED) - [facility] 120 10/20/2019 08:59 AM LDL CHOLESTEROL (CALCULATED) - [facility] 76 06/07/2018 06:51 AM LDL CHOLESTEROL (DIRECT MEASURE) - [facility] 63 09/10/2022 09:42 AM LDL CHOLESTEROL (DIRECT MEASURE) - [facility] NOT APPLICABLE 10/20/2019 08:59 AM LDL CHOLESTEROL (DIRECT MEASURE) - [facility] NOT APPLICABLE 01/14/2014 03:42 PM LDL CHOLESTEROL (DIRECT MEASURE) - [facility] 171 (H) 05/16/2008 11:11 AM LDL CHOLESTEROL (DIRECT MEASURE) - [facility] 228 (H) 03/18/2008 01:00 PM Lab Results Component Value Date/Time ALT - [facility] 74 (H) 10/31/2023 04:14 PM ALT - [facility] 32 10/20/2019 08:59 AM ALT-OUTSIDE LAB 56 03/22/2016 12:00 AM Hemoglobin AIC Results: Lab Results Component Value Date/Time HEMOGLOBIN A1C - [facility] 6.0 (H) 07/17/2023 09:07 AM HEMOGLOBIN A1C - [facility] 6.0 (H) 02/12/2023 08:52 AM HEMOGLOBIN A1C - [facility] 5.1 09/20/2020 06:05 AM HEMOGLOBIN A1C - [facility] 5.2 06/23/2014 09:27 AM HEMOGLOBIN A1C - [facility] 5.5 04/04/2008 12:14 PM documented in this encounter Plan of Treatment Upcoming Encounters Date Type Department Care Team (Late st Contact Info) Description 11/19/2023 10:00 AM EDT Office Visit Nutrition & Weight Management, [address] [place] [phone] Anai Schultz PA-C [address] [facility] [place] [address] 12/22/2023 1:40 PM EDT Office Visit Family [facility] [address] [place] [phone] Keagan Sanchez MD [address] [place] [address] 08/09/2024 10:00 AM EDT Office Visit Orthopaedics [facility][1] [address] [place] [address] Sami Angelo DO [address] [place] [address] 10/07/2024 2:40 PM EDT Office Visit Dermatology [address] [phone] Alden Ann PA-C [address] [place] [address] [phone] Scheduled Procedures Name Priority Associated Diagnoses Date/Ti [...] D LEVEL ONCE IN A LIFETIME-USE SMARTSET# 00496 Completed 01/28/2022, 02/21/2015, 12/30/2011 RETIRED - COLONOSCOPY-EVERY [...] this encounter Medical Devices Implanted Type Area Tip Inserter Device Identifier Shelf Expiration Date Model / Serial / Lot Screw Jami Lacie 3 Ti Set - [id number] Implanted:Qty: 6 on 03/10/2012 at [facility] Bilateral: Spine Lumbar LEVON : SPINE [id number] / / Screw Lacie Pa Ti 6.5x50mm - [id number] Implanted:Qty: 4 on 03/10/2012 at [facility] Bilateral: Spine Lumbar LEVON : SPINE [id number] / / [place] Xia3 7.0 X 40mm Screws Implanted:Qty: 2 on 03/10/2012 at [facility] Bilateral: Spine Lumbar [id number] / / Shaun Lacie 3 Ti 6x70mm - [id number] Implanted:Qty: 1 on 03/10/2012 at [facility] N/A: Spine Lumbar LEVON : SPINE [id number] / / Shaun Lacie 3 Ti Max 6x80mm - [id number] Implanted:Qty: 1 on 03/10/2012 at [facility] N/A: Spine Lumbar LEVON : SPINE [id number] / / 9 X 25 X 4 - 8 Avs Wedge Nose Cage Implanted:Qty: 1 on 03/10/2012 at OR [facility] N/A: Spine Lumbar [id number] / / Stent Synergy Xd Mr 2.60t20pb - [id number] Implanted:Qty: 1 on 09/20/2020 at [facility] [employer] [id number] 04/18/2022 [id number] 220 / / [id number] Stent Synergy Xd Mr 2.22v73bd - [id number] Implanted:Qty: 1 on 09/20/2020 at [facility] [employer] [id number] 04/25/2022 [id number] 220 / / [id number] Screw Locking 4.5mm 15mm - [id number] Implanted:Qty: 1 on 07/11/2022 by Sami Angelo DO at [facility] Right: Shoulder [employer] 11/22/2025 108-4515 / / [id number] Bseplate Jasmeet Cmntlss W Scrw - [id number] Implanted:Qty: 1 on 07/11/2022 by Sami Angelo DO at [facility] Right: Shoulder [employer] 03/24/2027 105-0029 / / [id number] Glenosphere Rev Thee W Scrw - [id number] Implanted:Qty: 1 on 07/11/2022 by Sami Angelo DO at [facility] Right: Shoulder [employer] 04/24/2027 105-3610 / / [id number] Screw Locking 4.5mm 15mm - [id number] Implanted:Qty: 1 on 07/11/2022 by Sami Angelo DO at [facility] Right: Shoulder [employer] 03/24/2027 108-4515 / / [id number] Screw Locking 4.5mm 20mm - [id number] Implanted:Qty: 1 on 07/11/2022 by Sami Angelo [...] / [id number] Screw Locking 4.5mm 20mm - [id number] Implanted:Qty: 1 on 07/11/2022 by Sami Angelo [...] Spouse Health Care Agent Care Teams Patient Assessment Coordinator Relationship Specialty Start Date End Date Keagan Sanchez MD [address] [place] [phone] PCP - General Family Medicine 10/07/23 documented as of this encounter
--- OUTSIDE RECORDS SUMMARY | 2024-03-06 12:39 | External Medical Summary | Summary of Care ---
Author Name Unknown Organization [facility] Address [address] [facility] [place] [address] Phone [phone] Care Team Providers Care Wet Milling Wheel Operator Name Role Phone Keagan Sanchez MD Primary Care Provider [phone] Reason for Visit * Reason Comments Acute Pt is present today for back pain in lower back, vaginal area, sometimes when urinating, groin pain. Pt states she is getting shooting pains down legs and numbness. Pt has had it for a week off and on. Encounter Details Date Type Department Care Team ([facility] Contact Info) Description 10/28/2023 2:20 PM EDT Office Visit [address] [phone] Shane Morales PA-C [address] [place] [address] Constipation, unspecified constipation type*; Dysuria; Bilateral groin pain Allergies Active Allergy Reactions Criticality Noted Date Comments Adhesive Tape 03/31/2023 Other Reaction(s): Tape- redness, paper tape/coban "ok", [id number] TAPE OK OR COBAN Clarithromycin High 03/31/2023 Other Reaction(s): Rash, diarrhea, RASH,DIARRHEA Duloxetine Hcl Flushing,Nausea/vomi tin g High 10/20/2019 Erythromycin Base Rash 03/14/2004 Orlistat Low 03/31/2023 Other Reaction(s): GI UPSET Penicillins Rash 03/14/2004 Prednisone Other (Please comment) High 10/10/2023 pancreatitis Sulfa Antibiotics Rash 03/14/2004 documented as of this encounter (statuses as of 10/30/2023) Medications Medication Sig Dispensed Refills Start Date [...] as of this encounter (statuses as of 10/30/2023) Active Problems Problem Noted Date Diagnosed Date [...] hypothyroidism 04/12/2021 Coronary artery disease invo lving [place] coronary artery of [place] heart without angina pectoris 09/27/2020 S/P [...] as of this encounter (statuses as of 10/30/2023) Resolved Problems Problem Noted Date Diagnosed Date [...] as of this encounter (statuses as of 10/30/2023) Immunizations Name Administration Dates Next Due COVID-19 [...] Sign Reading Time Taken Comments Blood Pressure 118/60 10/28/2023 2:20 PM EDT Pulse 59 10/28/2023 2:20 PM EDT Temperature 36.5 C (97.7 F) 10/28/2023 2:20 PM ED T Respiratory Rate 18 10/28/2023 2:20 PM EDT Oxygen Saturation 96% 10/28/2023 2:20 PM EDT Inhaled Oxygen Concentration - - Weight 80.1 kg (176 lb 9.6 oz) 10/28/2023 2:20 P M EDT Height - - Body Mass Index 30.31 10/03/2023 8:38 AM EDT documented in this [...] as of this encounter Progress Notes * Shane Morales PA-C - 10/28/2023 2:35 PM EDT Images from the original note were not included. History of Present Illness Shalini Pace is a 63 year old female that presents for Acute (Pt is present today for back painin lower back, vaginal area, sometimes when urinating, groin pain. Pt states she is getting shooting pains down legs and numbness. Pt has had it for a week off and on. ) She tells me for the past few weeks, getting worse. The pain of the back and groin got a lot worse over the weekend. She denies any recent trauma or injury. She isn't very active, except a few continuing education dean. Walking and standing increase her pain, activity in general. She has been resting, triedheat, her tramadol. She adjusted her stimulator. Physical Exam Vitals: 10/28/23 1420 Temp: 36.5 C (97.7 F) Pulse: 59 Resp: 18 SpO2: 96% BP: 118/60 General: alert and no distress I have reviewed the following results: Urinalysis, POC Assessment and Plan Constipation, unspecified constipation type Upon viewing her x-rays, it was noted that she is full of stool. Miralax recommended. Dysuria - URINALYSIS, POINT OF CARE (ENTER/EDIT) Bilateral groin pain Hip joints look good for her age. - XR HIP BILAT 3-4 VIEWS INCLUDING AP OF PELVIS Wrap-Up Shane Morales PA-C documented in this encounter Plan of Treatment Upcoming Encounters Date Type Department Care Team (Late st Contact Info) Description 11/19/2023 10:00 AM EDT Office Visit Nutrition & Weight Management, [facility] [address] [facility] [place] [address] Anai Schultz PA-C [address] [facility] [place] [address] 12/22/2023 1:40 PM EDT Office Visit Family [address] [phone] Keagan Sanchez MD [address] [place] [address] 08/09/2024 10:00 AM EDT Office Visit Orthopaedics [address] [phone] Sami Angelo DO [address] [place] [address] 10/07/2024 2:40 PM EDT Office Visit Dermatology [facility] [address] [place] [address] Alden Ann PA-C [address] [place] [address] Pending Results Name Type Priority Associated Diagnoses Date /Time XR HIP BILAT 3-4 VIEWS INCLUDING AP OF PELVIS Medical Imaging Routine Bilateral groin pain 10/28/2023 2:55 PM EDT Scheduled Procedures Name Priority Associated [...] 08/0 11/2022, 09/10/2022, Additional history exists GFR 08/24/2024 08/25/2023, 0603/2023, 07/20/2023, Additional history exists DTaP,Tdap,and Td Vaccines (3 - Td or Tdap) 10/10/2026 10/10/2016, 10/26/2005 Colonoscopy 04/18/2027 04/18/2022, 03/25, 08/10/2013, Additional history exists Colorectal Cancer Screening 04/18/2027 VITAMIN D LEVEL ONCE IN A LIFETIME-USE SMARTSET# [id number] Completed 01/28/2022, 02/21/2015, 12/30/2011 RETIRED - COLONOSCOPY-EVERY [...] encounter Medical Devices Implanted Type Area Call Center Assistant Device Identifier Shelf Expiration Date Model / Serial / Lot Screw Jami Lacie 3 Ti Set - [id number] Implanted:Qty: 6 on 03/10/2012 at [facility] Bilateral: Spine Lumbar LEVON : SPINE [id number] / / Screw Lacie Pa Ti 6.5x50mm - [id number] Implanted:Qty: 4 on 03/10/2012 at [facility] Bilateral: Spine Lumbar LEVON : SPINE [id number] / / [place] Xia3 7.0 X 40mm Screws Implanted:Qty: 2 on 03/10/2012 at [facility] Bilateral: Spine Lumbar [id number] / / Shaun Lacie 3 Ti 6x70mm - [id number] Implanted:Qty: 1 on 03/10/2012 at [facility] N/A: Spine Lumbar LEVON : SPINE [id number] / / Shaun Lacie 3 Ti Max 6x80mm - [id number] Implanted:Qty: 1 on 03/10/2012 at [facility] N/A: Spine Lumbar LEVON : SPINE [id number] / / 9 X 25 X 4 - 8 Avs Wedge Nose Cage Implanted:Qty: 1 on 03/10/2012 at [facility] N/A: Spine Lumbar [id number] / / Stent Synergy Xd Mr 2.80x06uh - [id number] Implanted:Qty: 1 on 09/20/2020 at [facility] [employer] [id number] 04/18/2022 [id number] 220 / / [id number] Stent Synergy Xd Mr 2.04z96qs - [id number] Implanted:Qty: 1 on 09/20/2020 at [facility] [employer] [id number] 04/25/2022 [id number] 220 / / [id number] Screw Locking 4.5mm 15mm - [id number] Implanted:Qty: 1 on 07/11/2022 by Sami Angelo DO at [facility] Right: Shoulder [employer] 11/22/2025 108-4515 / / [id number] Bseplate Jasmeet Cmntlss W Scrw - [id number] Implanted:Qty: 1 on 07/11/2022 by Sami Angelo DO at [facility] Right: Shoulder [employer] 03/24/2027 105-0029 / / [id number] Glenosphere Rev Thee W Scrw - [id number] Implanted:Qty: 1 on 07/11/2022 by Sami Angelo DO at [facility] Right: Shoulder [employer] 04/24/2027 105-3610 / / [id number] Screw Locking 4.5mm 15mm - [id number] Implanted:Qty: 1 on 07/11/2022 by Sami Angelo DO at [facility] Right: Shoulder [employer] 03/24/2027 108-4515 / / [id number] Screw Locking 4.5mm 20mm - [id number] Implanted:Qty: 1 on 07/11/2022 by Sami Angelo DO at [facility] Right: Shoulder [employer] 03/24/2027 108-4520 / / [id number] [place] Ii Stem Ta6v Size 12 Cementless Implanted:Qty: 1 on 07/11/2022 by Sami Angelo DO at [facility] Right: Shoulder [employer] 10/22/2026 [id number] / / [id number] Cortical Screw Ta6v, 5mm, L. 24mm Implanted:Qty: 1 on 07/11/2022 by Sami Angelo DO at [facility] Right: Shoulder [employer] 09/22/2023 107-4524 / / [id number] Humeral Cup 135/145 Degree, Standard, 36/+6 Implanted:Qty: 1 on 07/11/2022 by Sami Angelo DO at [facility] Right: Shoulder 02/21/2025 313-0706 / / [id number] Screw Locking 4.5mm 20mm - [id number] Implanted:Qty: 1 on 07/11/2022 by Sami Angelo DO at [facility] Right: Shoulder [employer] 03/24/2027 108-4520 / / [id number] documented as of this encounter Procedures Procedure Name Priority Date/Time Associated Diagnosis Comments URINALYSIS, POINT OF CARE (ENTER/EDIT) Routine 10/28/2023 2:35 PM EDT Dysuria documented in this encounter Results * (ABNORMAL) URINALYSIS, POINT OF CARE (ENTER/EDIT) (10/28/2023 2:35 PM EDT) Color, Urine Yellow Yellow or Light Yellow Clarity, Urine Slightly Cloudy(A) Clear Glucose, Urine Negative Negative mg/dL Bilirubin, Urine Negative Negative Ketone, Urine Trace(A) Negative mg/dL Specific [place], Urine 1.015 1.003 - 1.030 Blood, Urine Negative Negative pH, Urine 6.5 5.0 - 7.5 units Protein, Urine Negative Negative mg/dL Urobilinogen, Urine 0.2 0.2 - 1.0 mg/dL Nitrite, Urine Negative Negative Esterase, Urine Small(A) Negative Urine 10/28/2023 2:35 PM EDT Shane Morales PA-C LAB POINT OF CARE T EST ENTER/EDIT ORDERABLES documented in this encounter Visit Diagnoses Diagnosis Constipation, unspecified constipation type- Primary Dysuria Bilateral groin pain Abdominal pain, unspecified site documented in this encounter Advance Directives * [...] Pace Spouse Health Care Agent Care Teams Wet Milling Wheel Operator Relationship Specialty Start Date End Date Keagan Sanchez MD [address] [place] [address] PCP - General Family Medicine 10/07/23 documented as of this encounter
--- OUTSIDE RECORDS SUMMARY | 2024-03-06 12:39 | External Medical Summary | Summary of Care ---
Author Name Unknown Organization [facility] Address [address] [facility] [place] [address] Phone [phone] Care Team Providers Care Typing Bookkeeper Name Role Phone Keagan Sanchez MD Primary Care Provider Reason for Visit * Reason Onset Date Comments [facility]: Screening 10/24/2023 Encounter Details Date Type Department Care Team (Late st Contact Info) Description 10/24/2023 Telephone [facility], [facility] [address] [place] [address] [facility], Nurse [facility] [address] [facility] [place] [phone] [facility]: Screening Allergies Active Allergy Reactions Criticality Noted Date Comments Adhesive Tape 03/31/2023 Other Reaction(s): Tape- redness, paper tape/coban "ok", [id number] TAPE OK OR COBAN Clarithromycin High 03/31/2023 Other Reaction(s): Rash, diarrhea, RASH,DIARRHEA Duloxetine Hcl Flushing,Nausea/vomi tin g High 10/20/2019 Erythromycin Base Rash 03/14/2004 Orlistat Low 03/31/2023 Other Reaction(s): GI UPSET Penicillins Rash 03/14/2004 Prednisone Other (Please comment) High 10/10/2023 pancreatitis Sulfa Antibiotics Rash 03/14/2004 documented as of this encounter (statuses as of 10/24/2023) Medications Medication Sig Dispensed Refills Start Date [...] as of this encounter (statuses as of 10/24/2023) Active Problems Problem Noted Date Diagnosed Date Drug-induced acute pancreati tis without infection or necrosis 08/24/2023 Anxiety and depression 08/24/2023 Dyslipidemia 08/24/2023 Coronary artery disease due to lipid [...] hypothyroidism 04/12/2021 Coronary artery disease invo lving [place] coronary artery of [place] heart without angina pectoris 09/27/2020 S/P angioplasty [...] as of this encounter (statuses as of 10/24/2023) Resolved Problems Problem Noted Date Diagnosed Date Resolved Date Recurrent major depressive disorder 12/15/2021 04/07/2023 Epigastric [...] as of this encounter (statuses as of 10/24/2023) Immunizations Name Administration Dates Next Due COVID-19 [...] encounter Miscellaneous Notes * Telephone Encounter - Dionna Carvajal LPN - 10/24/2023 3:52 PM EDT Shalini Pace was referred as a potential candidate for enrollment for [facility]. A review of this chart was completed and: Shalini meets criteria for [facility]. Jump to Initiation Referring care team was notified via : V[employer] communication documented in this encounter Plan of Treatment Upcoming Encounters Date Type Department Care Team (Late st Contact Info) Description 11/19/2023 10:00 AM EDT Office Visit Nutrition & Weight Management, [facility] [address] [facility] [place] [address] Anai Schultz PA-C [address] [facility] [place] [address] 12/22/2023 1:40 PM EDT Office Visit Family [facility] [address] [place] [phone] Keagan Sanchez MD [address] [place], [place] [phone] [id number] 08/09/2024 10:00 AM EDT Office Visit Orthopaedics Andrez Alejandre [address] [place] [address] [place] [phone] Sami Angelo, DO [address] [place] [address] 10/07/2024 2:40 PM EDT Office Visit Dermatology [facility] [address] [place] [address] Alden Ann PA-C [address] [place] [address] Scheduled Procedures Name Priority Associated Diagnoses Date/Ti [...] D LEVEL ONCE IN A LIFETIME-USE SMARTSET# 37100 Completed 01/28/2022, 02/21/2015, 12/30/2011 RETIRED - COLONOSCOPY-EVERY [...] this encounter Medical Devices Implanted Type Area Clinical Data Associate Device Identifier Shelf Expiration Date Model / Serial / Lot Screw Jami Lacie 3 Ti Set - [id number] Implanted:Qty: 6 on 03/10/2012 [place] [facility] [place] Bilateral: Spine Lumbar LEVON : SPINE [id number] / / Screw Lacie Pa Ti 6.5x50mm - [id number] Implanted:Qty: 4 on 03/10/2012 at [place] [facility] [place] Bilateral: Spine Lumbar LEVON : SPINE [id number] / / Levon Xia3 7.0 X 40mm Screws Implanted:Qty: 2 on 03/10/2012 at [place] [facility] [place] Bilateral: Spine Lumbar [id number] / / Shaun Lacie 3 Ti 6x70mm - [id number] Implanted:Qty: 1 on 03/10/2012 at [place] [facility] [place] N/A: Spine Lumbar LEVON : SPINE [id number] / / Shaun Lacie 3 Ti Max 6x80mm - [id number] Implanted:Qty: 1 on 03/10/2012 at [place] [facility] [place] N/A: Spine Lumbar LEVON : SPINE [id number] / / 9 X 25 X 4 - 8 Avs Wedge Nose Cage Implanted:Qty: 1 on 03/10/2012 at [place] [facility] [place] N/A: Spine Lumbar [id number] / / Stent Synergy Xd Mr 2.20t91ym - [id number] Implanted:Qty: 1 on 09/20/2020 at [facility] [employer] [id number] 04/18/2022 [id number] 220 / / [id number] Stent Synergy Xd Mr 2.05r73hx - [id number] Implanted:Qty: 1 on 09/20/2020 at [facility] [employer] [id number] 04/25/2022 [id number] 220 / / [id number] Screw Locking 4.5mm 15mm - [id number] Implanted:Qty: 1 on 07/11/2022 by Sami Angelo DO at [place] [facility] Right: Shoulder [employer] 11/22/2025 108-4515 / / [id number] Bseplate Jasmeet Cmntlss W Scrw - [id number] Implanted:Qty: 1 on 07/11/2022 by Sami Angelo DO at [place] [facility] Right: Shoulder [employer] 03/24/2027 105-0029 / / [id number] Glenosphere Rev Thee W Scrw - [id number] Implanted:Qty: 1 on 07/11/2022 by Sami Angelo DO at [place] [facility] Right: Shoulder [employer] 04/24/2027 105-3610 / / [id number] Screw Locking 4.5mm 15mm - [id number] Implanted:Qty: 1 on 07/11/2022 by Sami Angelo DO at [place] [facility] Right: Shoulder [employer] 03/24/2027 108-4515 / / [id number] Screw Locking 4.5mm 20mm - [id number] Implanted:Qty: 1 on 07/11/2022 by Sami Angelo DO at [place] [facility] Right: Shoulder [employer] 03/24/2027 108-4520 / / [id number] Humelock Ii Stem Ta6v Size 12 Cementless Implanted:Qty: 1 on 07/11/2022 by Sami Angelo DO at [place] [facility] Right: Shoulder [employer] 10/22/2026 311-0212 / / [id number] Cortical Screw Ta6v, 5mm, L. 24mm Implanted:Qty: 1 on 07/11/2022 by Sami Angelo, DO at [place] [facility] Right: Shoulder [employer] 09/22/2023 107-4524 / / [id number] Humeral Cup 135/145 Degree, Standard, 36/+6 Implanted:Qty: 1 on 07/11/2022 by Sami Angelo, DO at [place] [facility] Right: Shoulder 02/21/2025 313-0706 / / [id number] Screw Locking 4.5mm 20mm - [id number] Implanted:Qty: 1 on 07/11/2022 by Sami Aneglo, DO at [place] [facility] Right: Shoulder [employer] [...] Pace Spouse Health Care Agent Care Teams Typing Bookkeeper Relationship Specialty Start Date End Date Keagan Sanchez MD [address] [place] [address] PCP - General Family Medicine 10/07/23 documented as of this encounter
--- OUTSIDE RECORDS SUMMARY | 2024-03-06 12:39 | External Medical Summary ---
Author Name Unknown Address Unknown Organization K1G:LABORATORY [facility] - [address] [place] [id number] Laboratory Report Ordering Provider Test Date Status MERRILL ZARATE 10/31/2023 16:14:52 Final Observation Date Value Abnormality Reference (Units ) Status WBC, Total 10/31/2023 16:14:52 4.63 4.00-10.8 0 (K/uL) Final RBC 10/31/2023 16:14:52 4.26 3.85-5.15 (M/uL) Final Hemoglobin 10/31/2023 16:14:52 11.8 Below low normal 12 .0-15.3 (g/dL) Final HCT 10/31/2023 16:14:52 36.7 36.0-45.2 (%) Final MCV 10/31/2023 16:14:52 86.2 81.5-97.5 (fL) Final MCH 10/31/2023 16:14:52 27.7 27.0-34.0 (pg) Final MCHC 10/31/2023 16:14:52 32.2 32.0-36.0 (g/dL) Final RDW 10/31/2023 16:14:52 14.4 11.5-15.5 (%) Final Platelets 10/31/2023 16:14:52 182 140-400 (K /uL) Final MPV 10/31/2023 16:14:52 10.4 6.6-11.1 ( fL) Final Performing Location LABORATORY [facility] - [address] [place] [phone]
--- OUTSIDE RECORDS SUMMARY | 2024-03-06 12:39 | External Medical Summary ---
Author Name Unknown Address Unknown Organization K1G:LABORATORY [facility] - [address] [place] [id number] Laboratory Report Ordering Provider Test Date Status MERRILL ZARATE 10/31/2023 16:14:52 Final Observation Date Value Abnormality Reference (Units ) Status SYNC LEUKOCYTES IN BLOOD BY AUTOMATED COUNT 10/31/2023 16:14:52 4.63 4.00-10.80 (K/uL) Final Segs 10/31/2023 16:14:52 37.0 Below low normal 40.0-75.0 (%) Final Lymphs % 10/31/2023 16:14:52 53.3 Above high normal 18.0-42.0 (%) Final Monos 10/31/2023 16:14:52 8.4 1.0-11.0 (%) Final Eosinophils 10/31/2023 16:14:52 1.1 0.0-6.0 (%) Final Basos 10/31/2023 16:14:52 0.2 0.0-2.0 (%) Final Absolute Segs 10/31/2023 16:14:52 1.71 Below low normal 1.80-7.70 (K/uL) Final Lymphs, absolute 10/31/2023 16:14:52 2.47 1.00-4.80 (K/ul) Final Monos, Abs 10/31/2023 16:14:52 0.39 0.00-1.10 (K/uL) Final Eos, Abs 10/31/2023 16:14:52 0.05 0.00-0.70 (K/uL) Final Basos, Abs 10/31/2023 16:14:52 0.01 0.00-0.20 (K/uL) Final Performing Location LABORATORY [facility] - [address] [facility] [address]
--- OUTSIDE RECORDS SUMMARY | 2024-03-06 12:39 | External Medical Summary ---
Author Name Unknown Address Unknown Organization K1G:LABORATORY [facility] - [address] [place] [phone] Laboratory Report Ordering Provider Test Date Status MERRILL ZARATE 10/31/2023 16:14:52 Final Observation Date Value Abnormality Reference (Units ) Status BUN 10/31/2023 16:14:52 10 6-20 (mg/dL) Final Creatinine 10/31/2023 16:14:52 0.9 0.5-1.0 (mg/dL) Final Glomerular filtration rate/1.73 sq M.predicted [Volume Rate/Area] in Serum, Plasma or Blood by Creatinine-based formula (CKD-EPI) 10/31/2023 16:14:52 77 >=60 (mL/min) Final eGFR is calculated based on the CKD-EPI 2020 equation. Sodium 10/31/2023 16:14:52 133 Below low normal 135 -146 (mmol/L) Final Potassium 10/31/2023 16:14:52 3.9 3.5-5.1 (m mol/L) Final Cl 10/31/2023 16:14:52 99 98-107 (mm ol/L) Final CO2 10/31/2023 16:14:52 21 Below low normal 22- 32 (mmol/L) Final Anion gap 10/31/2023 16:14:52 13 7-15 (mmol /L) Final Glucose 10/31/2023 16:14:52 74 70-120 (mg /dL) Final Calcium 10/31/2023 16:14:52 9.0 8.4-10.2 ( mg/dL) Final Performing Location LABORATORY [facility] - [address] [facility] [address]
--- OUTSIDE RECORDS SUMMARY | 2024-03-06 12:39 | External Medical Summary | Summary of Care ---
Author Name Unknown Organization [facility] Address [address] [facility] [place] [address] Phone [phone] Care Team Providers Care Currency Exchange Specialist Name Role Phone Keagan Sanchez MD Primary Care Provider [phone] Encounter Details Date Type Department Care Team (Late st Contact Info) Description 11/03/2023 Population Health External Data Unspecified Department Allergies Active Allergy Reactions Criticality Noted Date Comments Adhesive Tape 03/31/2023 Other Reaction(s): Tape- redness, paper tape/coban "ok", [id number] TAPE OK OR COBAN Clarithromycin High 03/31/2023 Other Reaction(s): Rash, diarrhea, RASH,DIARRHEA Duloxetine Hcl Flushing,Nausea/vomi tin g High 10/20/2019 Erythromycin Base Rash 03/14/2004 Orlistat Low 03/31/2023 Other Reaction(s): GI UPSET Penicillins Rash 03/14/2004 Prednisone Other (Please comment) High 10/10/2023 pancreatitis Sulfa Antibiotics Rash 03/14/2004 documented as of this encounter (statuses as of 11/03/2023) Medications Medication Sig Dispensed Refills Start Date [...] as of this encounter (statuses as of 11/03/2023) Active Problems Problem Noted Date Diagnosed Date [...] as of this encounter (statuses as of 11/03/2023) Resolved Problems Problem Noted Date Diagnosed Date [...] as of this encounter (statuses as of 11/03/2023) Immunizations Name Administration Dates Next Due COVID-19 [...] Influenza, Split, I IV3, With Preserve, Inj 12/08/2014,01/12/2013,11/26/2011,10/19/2 0 11 TDAP (age 10 and older)(Boostrix) [...] EDT Office Visit Nutrition & Weight Management, [facility] [address] [place] [address] Anai Schultz PA-C [address] [place] [address] 12/22/2023 1:40 PM EDT Office Visit Family Practice [address] [phone] Keagan Sanchez MD [address] [place] [address] 08/09/2024 10:00 AM EDT Office Visit Orthopaedics Andrez Alejandre [address] [place] [phone] Sami Angelo DO [address] [place] [address] 10/07/2024 2:40 PM EDT Office Visit Dermatology [facility] [address] [place] [phone] Alden Ann PA-C [address] [place] [phone] Scheduled Procedures Name Priority Associated Diagnoses Date/Ti [...] D LEVEL ONCE IN A LIFETIME-USE SMARTSET# [id number] Completed 01/28/2022, 02/21/2015, 12/30/2011 RETIRED - COLONOSCOPY-EVERY [...] encounter Medical Devices Implanted Type Area Sales Stock Associate Device Identifier Shelf Expiration Date Model / Serial / Lot Screw Jami Lacie 3 Ti Set - [id number] Implanted:Qty: 6 on 03/10/2012 [place] [facility] [place] Bilateral: Spine Lumbar LEVON : SPINE [id number] / / Screw Lacie Pa Ti 6.5x50mm - [id number] Implanted:Qty: 4 on 03/10/2012 at [facility] Bilateral: Spine Lumbar LEVON : SPINE [id number] / / [place] Xia3 7.0 X 40mm Screws Implanted:Qty: 2 on 03/10/2012 at [facility] Bilateral: Spine Lumbar [id number] / / Shaun Lacie 3 Ti 6x70mm - [id number] Implanted:Qty: 1 on 03/10/2012 at [facility] N/A: Spine Lumbar LEVON : SPINE [id number] / / Shaun Lacie 3 Ti Max 6x80mm - [id number] Implanted:Qty: 1 on 03/10/2012 at [place] [facility] [place] N/A: Spine Lumbar LEVON : SPINE [id number] / / 9 X 25 X 4 - 8 Avs Wedge Nose Cage Implanted:Qty: 1 on 03/10/2012 at [facility] N/A: Spine Lumbar [id number] / / Stent Synergy Xd Mr 2.33l93hr - [id number] Implanted:Qty: 1 on 09/20/2020 at [facility] [place] [employer] [id number] 04/18/2022 [id number] 220 / / [id number] Stent Synergy Xd Mr 2.40d06jo - [id number] Implanted:Qty: 1 on 09/20/2020 at [facility] [place] [employer] [id number] 04/25/2022 [id number] 220 / / [id number] Screw Locking 4.5mm 15mm - [id number] Implanted:Qty: 1 on 07/11/2022 by Sami Angelo DO at [facility] Right: Shoulder [employer] 11/22/2025 108-4515 / / [id number] Bseplate Jasmeet Cmntlss W Scrw - [id number] Implanted:Qty: 1 on 07/11/2022 by Sami Angelo DO at [place] [facility] Right: Shoulder [employer] 03/24/2027 105-0029 / / [id number] Glenosphere Rev Thee W Scrw - [id number] Implanted:Qty: 1 on 07/11/2022 by Sami Angelo DO at [place] [facility] Right: Shoulder [employer] 04/24/2027 105-3610 / / [id number] Screw Locking 4.5mm 15mm - [id number] Implanted:Qty: 1 on 07/11/2022 by Sami Angelo DO at [place] [facility] Right: Shoulder [employer] 03/24/2027 108-4515 / / [id number] Screw Locking 4.5mm 20mm - [id number] Implanted:Qty: 1 on 07/11/2022 by Sami Angelo DO at [place] [facility] Right: Shoulder [employer] 03/24/2027 108-4520 / / [id number] Humelock Ii Stem Ta6v Size 12 Cementless Implanted:Qty: 1 on 07/11/2022 by Sami Angelo DO [place] [facility] Right: Shoulder [employer] 10/22/2026 311-0212 / / [id number] Cortical Screw Ta6v, 5mm, L. 24mm Implanted:Qty: 1 on 07/11/2022 by Sami Angelo DO at [place] [facility] Right: Shoulder [employer] 09/22/2023 107-4524 / / [id number] Humeral Cup 135/145 Degree, Standard, 36/+6 Implanted:Qty: 1 on 07/11/2022 by Sami Angelo DO at [place] [facility] Right: Shoulder 02/21/2025 313-0706 / / [id number] Screw Locking 4.5mm 20mm - [id number] Implanted:Qty: 1 on 07/11/2022 by Sami Angelo DO at [place] [facility] Right: Shoulder [employer] 03/24/2027 108-4520 [...] patient have Health Care Power of Attor toñiot? No * Full Code Date Activated Date [...] Pace Spouse Health Care Agent Care Teams Currency Exchange Specialist Relationship Specialty Start Date End Date Keagan Sanchez MD [address] [place] [phone] PCP - General Family Medicine 10/07/23 documented as of this encounter
--- OUTSIDE RECORDS SUMMARY | 2024-03-06 12:39 | External Medical Summary ---
Author Name Unknown Address Unknown Organization K1G:LABORATORY [facility] - [address] [place] [id number] Laboratory Report Ordering Provider Test Date Status MERRILL ZARATE 10/31/2023 16:14:52 Final Observation Date Value Abnormality Reference (Units ) Status Albumin 10/31/2023 16:14:52 4.4 3.8-5.0 (g/dL) Final AST (Aspartate aminotransferase) 10/31/2023 16:14:52 56 Above high normal 10-35 (U/L) Final Alk Phos 10/31/2023 16:14:52 60 35-130 (U/L) Final ALT (Alanine aminotransferase) 10/31/2023 16:14:52 74 Above high normal 10-35 (U/L) Final Bilirubin, Total 10/31/2023 16:14:52 0.2 <=1.2 (mg/dL) Final Bilirubin, Direct 10/31/2023 16:14:52 <0.2 0.0-0.3 (mg/dL) Final Protein 10/31/2023 16:14:52 6.9 6.0-8.3 (g/dL) Final Performing Location LABORATORY [facility] - [address] [facility] [phone]
--- OUTSIDE RECORDS SUMMARY | 2024-03-06 12:40 | External Medical Summary | Summary of Care ---
Author Name Unknown Organization [facility] Address [address] [facility] [place] [address] Phone [phone] Care Team Providers Care Application Dba Name Role Phone Keagan Sanchez MD Primary Care Provider [phone] Reason for Referral * Precert (Within 10 days (routine)) - Authorized Specialty Diagnoses / Procedures Referred By Contac t Referred To Contact Cardiac Studies Diagnoses Ascending aorta enlargement (HCC) Procedures ECHO, COMPLETE (2D), TRANS-THORACIC Keagan Sanchez MD [address] [place] [address] Referral ID Status Reason Start Date Expiration Date V isits Requested Visits Authorized [id number] Authorized Precert 10/06/2023 999 999 Reason for Visit * Reason Onset Date Comments Test Results 10/06/2023 LMOM 10/08/23 Encounter Details Date Type Department Care Team ([facility] st Contact Info) Description 10/06/2023 Telephone Family Practice [address] [phone] Keagan Sanchez MD [address] [place] [phone] Test Results (LMOM 10/08/23) Allergies Active Allergy Reactions Criticality Noted Date Comments Duloxetine Hcl Flushing,Nausea/vomi tin g High 10/20/2019 Erythromycin Base Rash 03/14/2004 Orlistat Low 03/31/2023 Other Reaction(s): GI UPSET Penicillins Rash 03/14/2004 Sulfa Antibiotics Rash 03/14/2004 documented as of this encounter (statuses as of 10/08/2023) Medications Medication Sig Dispensed Refills Start Date [...] BEFORE MEALS 270 Tablet 09/26/2023 09/25/2024 Active traMADol HCl 50 MG Oral Tablet (Ultram)Indications :Postlaminectomy syndrome, lumbar Take 2 Tablets by mouth every 6 hours as needed for Pain, Moderate. 90 Tablet 10/02/2023 Active documented as of this encounter (statuses as of 10/08/2023) Active Problems Problem Noted Date Diagnosed Date [...] hypothyroidism 04/12/2021 Coronary artery disease invo [place]ving [place] coronary artery of [place] heart without angina pectoris 09/27/2020 S/P angioplasty [...] as of this encounter (statuses as of 10/08/2023) Resolved Problems Problem Noted Date Diagnosed Date [...] as of this encounter (statuses as of 10/08/2023) Immunizations Name Administration Dates Next Due COVID-19 [...] years old or older) Yes-pt doesnt drive 06/02/20 24 Cognitive Status Response Date of Assessm ent Because of a physical, menta l, or emotional condition, do you have serious difficulty concentrating, remembering, or making decisions? (5 years old or older) No 08/24/2023 documented as of this encounter Miscellaneous Notes * Telephone Encounter - Hailey Bean LPN - 10/08/2023 3:11 PM EDT Patient aware and verbalized understanding, will comply * Telephone Encounter - Alyse Longo OSA - 10/08/2023 3:07 PM EDT Reason for patient's call: returning phone call about test results Caller was transferred to [facility] at the nurse line. * Telephone Encounter - Zhane Brcie CCMA - 10/08/2023 12:27 PM EDT Attempted to reach patient and give below results. No answer left message for a call back * Telephone Encounter - Neisha Guevara OSA - 10/06/2023 2:07 PM EDT Reason for patient's call: Patient called in because she got an email that another cardiac study was placed for her. She did not receive the results from this echocardiogram yet and would like to getthem now since they are available Unable to reach dedicated nurse after 2 mins Please call patient to relay the results to her [phone] * Telephone Encounter - Keagan Sanchez MD - 10/06/2023 8:04 AM EDT Inform patient No acute abnormalities on heart ECHO but I would like it repeated in 12 months because it shows mild enlargement of proximal ascending thoracic aorta. This will help us monitor this Schedule ECHO in 12 months-order in chart documented in this encounter Plan of Treatment Upcoming Encounters Date Type Department Care Team (Late st Contact Info) Description 11/19/2023 10:00 AM EDT Office Visit Nutrition & Weight Management, [facility] [address] [facility] [place] [address] Anai Schultz PA-C [address] [place] [address] 12/22/2023 1:40 PM EDT Office Visit Family [facility] [address] [place] [phone] Keagan Sanchez MD [address] [place] [address] 08/09/2024 10:00 AM EDT Office Visit Orthopaedics [facility] [address] [place] [phone] Sami Angelo DO [address] [place] [address] 10/07/2024 2:40 PM EDT Office Visit Dermatology [facility] [address] [place] [phone] Alden Ann PA-C [address] [place] [address] Scheduled Orders Name Type Priority Associated Diagnoses Orde r Schedule ECHO, COMPLETE (2D), TRANS-THORACIC Echocardiology Routine Ascending aorta enlargement (HCC) Expected: 10/06/2023 (Approximate), Expires: 10/05/2024 Scheduled Procedures Name Priority Associated Diagnoses Date/Ti [...] 09/10/2022, Additional history exists GFR 08/24/2024 08/25/2023, 06/0 03/2023, 07/20/2023, Additional history exists DTaP,Tdap,and Td Vaccines (3 - Td or Tdap) 10/10/2026 10/10/2016, 10/26/2005 Colonoscopy 04/18/2027 04/18/2022, 03/25, 08/10/2013, Additional history exists Colorectal Cancer Screening 04/18/2027 VITAMIN D LEVEL ONCE IN A LIFETIME-USE SMARTSET# 49724 Completed 01/28/2022, 02/21/2015, 12/30/2011 RETIRED - COLONOSCOPY-EVERY [...] this encounter Medical Devices Implanted Type Area Beef Cattle Farmer Device Identifier Shelf Expiration Date Model / Serial / Lot Screw Jami Lacie 3 Ti Set - [id number] Implanted:Qty: 6 on 03/10/2012 at [place] [facility] Bilateral: Spine Lumbar LEVON : SPINE [id number] / / Screw Lacie Pa Ti 6.5x50mm - [id number] Implanted:Qty: 4 on 03/10/2012 at OR [facility] Bilateral: Spine Lumbar LEVON : SPINE [id number] / / [place] Xia3 7.0 X 40mm Screws Implanted:Qty: 2 on 03/10/2012 at OR [facility] Bilateral: Spine Lumbar [id number] / / Shaun Lacie 3 Ti 6x70mm - [id number] Implanted:Qty: 1 on 03/10/2012 at OR [facility] N/A: Spine Lumbar LEVON : SPINE [id number] / / Shaun Lacie 3 Ti Max 6x80mm - [id number] Implanted:Qty: 1 on 03/10/2012 at OR [facility] N/A: Spine Lumbar LEVON : SPINE [id number] / / 9 X 25 X 4 - 8 Avs Wedge Nose Cage Implanted:Qty: 1 on 03/10/2012 at OR [facility] N/A: Spine Lumbar [id number] / / Stent Synergy Xd Mr 2.84w76sl - [id number] Implanted:Qty: 1 on 09/20/2020 at [facility] [place] [id number] 04/18/2022 [id number] 220 / / [id number] Stent Synergy Xd Mr 2.54b68xh - [id number] Implanted:Qty: 1 on 09/20/2020 at [facility] [place] [id number] 04/25/2022 [id number] 220 / / [id number] Screw Locking 4.5mm 15mm - [id number] Implanted:Qty: 1 on 07/11/2022 by Sami Angelo DO at OR [facility] Right: Shoulder [employer] 11/22/2025 108-4515 / / [id number] Bseplate Jasmeet Cmntlss W Scrw - [id number] Implanted:Qty: 1 on 07/11/2022 by Sami Angelo DO at OR [facility] Right: Shoulder [employer] 03/24/2027 105-0029 / / [id number] Glenosphere Rev Thee W Scrw - [id number] Implanted:Qty: 1 on 07/11/2022 by Sami Angelo DO at OR [facility] Right: Shoulder [employer] 04/24/2027 105-3610 / / [id number] Screw Locking 4.5mm 15mm - [id number] Implanted:Qty: 1 on 07/11/2022 by Sami Angelo DO at OR [facility] Right: Shoulder [employer] 03/24/2027 108-4515 / / [id number] Screw Locking 4.5mm 20mm - [id number] Implanted:Qty: 1 on 07/11/2022 by Sami Angelo DO at OR [facility] Right: Shoulder [employer] 03/24/2027 108-4520 / / [id number] [place] Ii Stem Ta6v Size 12 Cementless Implanted:Qty: 1 on 07/11/2022 by Sami Angelo DO at OR [facility] Right: Shoulder [employer] 10/22/2026 [id number] / / [id number] Cortical Screw Ta6v, 5mm, L. 24mm Implanted:Qty: 1 on 07/11/2022 by Sami Angelo DO at OR [facility] Right: Shoulder [employer] 09/22/2023 107-4524 / / [id number] Humeral Cup 135/145 Degree, Standard, 36/+6 Implanted:Qty: 1 on 07/11/2022 by Sami Angelo DO at OR [facility] Right: Shoulder 02/21/2025 313-0706 / / [id number] Screw Locking 4.5mm 20mm - [id number] Implanted:Qty: 1 on 07/11/2022 by Sami Angelo DO at OR [facility] Right: Shoulder [employer] 03/24/2027 108-4520 / / [id number] documented as of this encounter Visit Diagnoses Diagnosis Ascending aorta enlargement (HCC)- Primary Other specified disorders of arteries and arterioles documented in this encounter Advance Directives * [...] Agents on File Name Relationship Healthcare Agent [facility] p Communication Donny Pace Spouse Health Care Agent Care Teams Application Dba Relationship Specialty Start Date End Date Keagan Sanchez MD [address] [place] [address] PCP - General Family Medicine 10/07/23 documented as of this encounter
--- OUTSIDE RECORDS SUMMARY | 2024-03-06 12:40 | External Medical Summary | Summary of Care ---
Author Name Unknown Organization [facility] Address [address] [facility] [place] [address] Phone [phone] Care Team Providers Care [employer] Chair Name Role Phone Keagan Sanchez MD Primary Care Provider [phone] Reason for Referral * Precert (Within 10 days (routine)) - Authorized Specialty Diagnoses / Procedures Referred By Contac t Referred To Contact Cardiac Studies Diagnoses Ascending aorta enlargement (HCC) Procedures ECHO, COMPLETE (2D), TRANS-THORACIC Keagan Sanchez MD [address] [place] [address] Referral ID Status Reason Start Date Expiration Date V isits Requested Visits Authorized [id number] Authorized Precert 10/06/2023 999 999 Reason for Visit * Reason Onset Date Comments Test Results 10/06/2023 LMOM 10/08/23 Encounter Details Date Type Department Care Team ([facility] st Contact Info) Description 10/06/2023 Telephone Family Practice [address] [phone] Keagan Sanchez MD [address] [place] [phone] Test Results (LMOM 10/08/23) Allergies Active [...] hypothyroidism 04/12/2021 Coronary artery disease invo [place]ving [place] coronary artery of [place] heart without angina pectoris 09/27/2020 S/P angioplasty [...] encounter Miscellaneous Notes * Telephone Encounter - Jamarcus Carreno PA-C - 10/08/2023 3:32 PM EDT Echo findings do not explain her symptomatic concerns. Offer f/u in office to further discuss her concerns. * Telephone Encounter - Joon Perez LPN - 10/08/2023 3:28 PM EDT Please advise message. Would you like for her to be evaluated in the office. Tx * Telephone Encounter - Hailey Bean LPN - 10/08/2023 3:11 PM EDT Patient aware and verbalized understanding, will comply. Would like to know if this finding would be the reason she experiences pain to the middle/below diaphragm of chest that radiates below left breast at the top of abdomen? Reports that today she has swelling to the area as well as pressure. Abd is distended. Rates pain a 7/10 that went down to a 5/10 after taking Tramadol. Describes pain as sharp and occurs after she eats something. Did eat toast today that did not upset her stomach. Denies chest pain/pressure/heaviness and SOB. Got over having pancreatitis a couple of weeks ago. Had a diarrhea BM twice earlier today. Diarrhea just started today. Takes Senna every night and did have prune juice today, which is not something she usually drinks. Denies nausea, vomiting and fever. Called PCP office, spoke Michelle and made her aware. Please advise. * Telephone Encounter - Alyse Longo OSA - 10/08/2023 3:07 PM EDT Reason for patient's call: returning phone call about test results Caller was transferred to [facility] at the nurse line. * Telephone Encounter - Zhane Brice CCMA - 10/08/2023 12:27 PM EDT Attempted [...] patient to relay the results to her [phone] * Telephone Encounter - Keagan Sanchez MD [...] EDT Office Visit Nutrition & Weight Management, [facility] [address] [place] [address] Anai Schultz PA-C [address] [place] [address] 12/22/2023 1:40 PM EDT Office Visit Family Practice [facility] [address] [place] [phone] Keagan Sanchez MD [address] [place] [address] 08/09/2024 10:00 AM EDT Office Visit [facility]edics [facility] [address] [place] [phone] Sami Angelo DO [address] [place], [place] [phone] 10/07/2024 2:40 PM EDT Office Visit Dermatology [facility] [address] [place] [phone] Alden Ann PA-C [address] [place] [address] Scheduled Orders Name Type Priority Associated Diagnoses [...] 080 11/2022, 09/10/2022, Additional history exists GFR 08/24/2024 08/25/2023, 03/2023, 07/20/2023, Additional history exists DTaP,Tdap,and Td Vaccines (3 - Td or Tdap) 10/10/2026 10/10/2016, 10/26/2005 Colonoscopy 04/18/2027 04/18/2022, 03/25, 08/10/2013, Additional history exists Colorectal Cancer Screening 04/18/2027 VITAMIN D LEVEL ONCE IN A LIFETIME-USE SMARTSET# [id number] Completed 01/28/2022, 02/21/2015, 12/30/2011 RETIRED - COLONOSCOPY-EVERY [...] this encounter Medical Devices Implanted Type Area Cold Saw Operator Device Identifier Shelf Expiration Date Model / Serial / Lot Screw Jami Lacie 3 Ti Set - [id number] Implanted:Qty: 6 on 03/10/2012 [place] [facility] Bilateral: Spine Lumbar LEVON : SPINE [id number] / / Screw Lacie Pa Ti 6.5x50mm - [id number] Implanted:Qty: 4 on 03/10/2012 [place] [facility] Bilateral: Spine Lumbar LEVON : SPINE [id number] / / [place] Xia3 7.0 X 40mm Screws Implanted:Qty: 2 on 03/10/2012 at [facility] Bilateral: Spine Lumbar [id number] / / Shaun Lacie 3 Ti 6x70mm - [id number] Implanted:Qty: 1 on 03/10/2012 [place] [facility] N/A: Spine Lumbar LEVON : SPINE [id number] / / Shaun Lacie 3 Ti Max 6x80mm - [id number] Implanted:Qty: 1 on 03/10/2012 [place] [facility] N/A: Spine Lumbar LEVON : SPINE [id number] / / 9 X 25 X 4 - 8 Avs Wedge Nose Cage Implanted:Qty: 1 on 03/10/2012 at [place] [facility] N/A: Spine Lumbar [id number] / / Stent Synergy Xd Mr 2.95j72af - [id number] Implanted:Qty: 1 on 09/20/2020 at [facility] [employer] [id number] 04/18/2022 [id number] 220 / / [id number] Stent Synergy Xd Mr 2.43a08yn - [id number] Implanted:Qty: 1 on 09/20/2020 at [facility] [employer] [id number] 04/25/2022 [id number] 220 / / [id number] Screw Locking 4.5mm 15mm - [id number] Implanted:Qty: 1 on 07/11/2022 by Sami Angelo DO at [place] [facility] Right: Shoulder [employer] 11/22/2025 108-4515 / / [id number] Bseplate Jasmeet Cmntlss W Scrw - [id number] Implanted:Qty: 1 on 07/11/2022 by Sami Angelo DO at [facility] Right: Shoulder [employer] 03/24/2027 105-0029 / / [id number] [employer] Rev Thee W Scrw - [id number] Implanted:Qty: 1 on 07/11/2022 by Sami Angelo DO at [facility] Right: Shoulder [employer] 04/24/2027 105-3610 / / [id number] Screw Locking 4.5mm 15mm - [id number] Implanted:Qty: 1 on 07/11/2022 by Sami Angelo DO at [place] [facility] Right: Shoulder [employer] 03/24/2027 108-4515 / / [id number] Screw Locking 4.5mm 20mm - [id number] Implanted:Qty: 1 on 07/11/2022 by Sami Angelo [...] / [id number] Screw Locking 4.5mm 20mm - [id number] Implanted:Qty: 1 on 07/11/2022 by Sami Angelo [...] Agents on File Name [facility] Communication Donny Pace Spouse Health Care Agent Care Teams [employer] Chair Relationship Specialty Start Date End Date Keagan Sanchez MD [address] [place] [address] PCP - General Family Medicine 10/07/23 documented as of this encounter
--- OUTSIDE RECORDS SUMMARY | 2024-03-06 12:40 | External Medical Summary | Summary of Care ---
Author Name Unknown Organization [facility] Address [address] [facility] [place] [address] Phone [phone] Care Team Providers Care Refinery Pipeline Operator Name Role Phone Keagan Sanchez MD Primary Care Provider [phone] Reason for Visit * Reason Comments Acute Upper belly pain, pa in shoots over to her left side under her breast. She is also having lower back pain on the left side goes into her left groin area. Has been going on for about a week. Question if something is going on with her back since she had a fusion. Encounter Details Date Type Department Care Team ([facility] Contact Info) Description 10/10/2023 11:30 AM EDT Office Visit [address] [phone] Alex Alvarado MD [address] [place] [phone] Abdominal pain, epigastric*; Chronic superficial gastritis without bleeding; Coronary artery disease involving lower sioux coronary artery of lower sioux heart without angina pectoris; Diastolic dysfunction; Postlaminectomy syndrome, lumbar Allergies Active Allergy Reactions Criticality Noted Date Comments Adhesive Tape 03/31/2023 Other Reaction(s): Tape- redness, paper tape/coban "ok", [id number] TAPE OK OR COBAN Clarithromycin High 03/31/2023 Other Reaction(s): Rash, diarrhea, RASH,DIARRHEA Duloxetine Hcl Flushing,Nausea/vomi tin g High 10/20/2019 Erythromycin Base Rash 03/14/2004 Orlistat Low 03/31/2023 Other Reaction(s): GI UPSET Penicillins Rash 03/14/2004 Prednisone Other (Please comment) High 10/10/2023 pancreatitis Sulfa Antibiotics Rash 03/14/2004 documented as of this encounter (statuses as of 10/10/2023) Medications Medication Sig Dispensed Refills Start Date [...] for Pain, Moderate. 90 Tablet 10/02/2023 Active Gabapentin 800 MG Oral Tablet (Neurontin)Indicati [...] before bedtime. 60 Tablet 11 10/10/2023 Active documented as of this encounter (statuses as of 10/10/2023) Active Problems Problem Noted Date Diagnosed Date [...] hypothyroidism 04/12/2021 Coronary artery disease invo lving lower sioux coronary artery of lower sioux heart without angina pectoris 09/27/2020 S/P angioplasty [...] as of this encounter (statuses as of 10/10/2023) Resolved Problems Problem Noted Date Diagnosed Date [...] as of this encounter (statuses as of 10/10/2023) Immunizations Name Administration Dates Next Due COVID-19 [...] Sign Reading Time Taken Comments Blood Pressure 114/70 10/10/2023 11:34 AM EDT Pulse 57 10/10/2023 11:34 AM EDT Temperature 36 C (96.8 F) 10/10/2023 11:34 AM EDT Respiratory Rate 20 10/10/2023 11:34 AM EDT Oxygen Saturation 96% 10/10/2023 11:34 AM EDT Inhaled Oxygen Concentration - - Weight 81.2 kg (179 lb) 10/10/2023 11:34 AM EDT Height - - Body Mass Index 30.73 10/03/2023 8:38 AM EDT documented in this [...] as of this encounter Progress Notes * Alex Alvarado MD - 10/10/2023 11:47 AM EDT Images from the original note were not included. Subjective: Shalini Pace is a 62 year old female. Chief Complaint Patient presents with Acute Upper belly pain, pain shoots over to her left side under her breast. She is also having lower back pain on the left side goes into her left groin area. Has been going on for about a week. Question if something is going on with her back since she had a fusion. HPI: Patient comes to the office as an acute visit complaining of Upper abdominal pain for the last 2 weeks. Feels pressure and sharp pain that takes her breath away. Refers her pain radiates to the left side on her left breast. Pain intermittent. Happens at random. Pain is 10/10 and takes her breath away. Pain can last 5 min or longer. Lying down makes pain better. Has felt twinges on left chest. Hx CAD. She refers appetite is poor. Tramadol seem to help. Has some bloating and belching. Has nausea but denies vomiting. Had some constipation and in last 2days she is having diarrhea. Yesterday had a normal good BM's x3. Denies BRBPR or melena. Denies dysuria, urine slow. Recent EGD on June 2023 showed normal esophagus, gastritis and gastric polyps were removed (biopsies benign) and normal duodenum. Currently on sucralfate 1 g twice daily, pantoprazole 40 mg daily Reglan 10 mg 3 times daily Also complains of lower back pain in the left side that goes into the left groin and LLQ abdominal pain. The lower back pain has been happening for about 1 week. Pain comes and goes. She has history of lumbar fusion. Pain radiated to left mid thigh. Denies leg weakness. PMH: Patient Active Problem List Diagnosis Migraine with [...] descending (LAD) artery Coronary artery disease involving lower sioux coronary artery of lower sioux heart without angina pectoris S/P angioplasty with stent Other specified hypothyroidism History of 2019 novel coronavirus disease (COVID-19) Personal history of fall Age-related osteoporosis without current pathological fracture S/P reverse total shoulder arthroplasty, right Abdominal pain Diverticulitis Hypokalemia Urinary retention Prediabetes Essential (primary) hypertension Hypothyroidism Neurostimulator device in situ Drug-induced acute pancreatitis without infection or necrosis Anxiety and depression Dyslipidemia Coronary artery disease due to lipid rich plaque Current Outpatient Medications Medication Sig Dispense Refill [...] mouth at bed time) 180 Tablet 5 Ezetimibe 10 MG Oral Tablet (Zetia) TAKE ONE TABLET BY MOUTH EVERY MORNING 90 Tablet 3 Pantoprazole Sodium 40 MG Oral Tablet [...] needed for Pain, Chest. 25 Tablet 1 metFORMIN HCl 500 MG Oral Tablet (Glucophage) Take 1 Tablet by mouth 2 times a day with morning andevening meals. 60 Tablet 4 amLODIPine Besylate 5 MG Oral Tablet (Norvasc) [...] ONE TABLET BEFORE BEDTIME 180 Tablet 3 Levalbuterol HCl 1.25 MG/3ML Inhalation Nebulization [...] THIRTY MINUTES BEFORE MEALS 270 Tablet 0 traMADol HCl 50 MG Oral Tablet (Ultram) Take 2 Tablets by mouth every 6 hours as needed for Pain, Moderate. 90 Tablet 0 Gabapentin 800 MG Oral Tablet (Neurontin) Take 1 Tablet by mouth in the morning and 1 Tablet at noon and 1 Tablet before bedtime. 270 Tablet 1 Sertraline HCl 100 MG Oral Tablet (Zoloft) Famotidine 20 MG Oral Tablet (Pepcid) Take 1 Tablet by mouth in the morning and 1 Tablet before bedtime. 60 Tablet 11 Torsemide 10 MG Oral Tablet (Demadex) Take 1 Tablet by mouth in the morning. (Patient not taking: Reported on 10/10/2023) 30 Tablet 1 LORazepam 0.5 MG Oral Tablet (Ativan) (Patient not taking: Reported on 10/10/2023) No current facility-administered medications for this visit. [...] performed by Domenico Barraza DO at [facility] AUTOGRAFT, SPINE SURGERY, LOCAL 03/10/2012 OBTAIN BONE GRAFT FOR SPINE SURGERY LOCAL performed by Norm Billings DO at [facility] CHEMODENERVATION INTERNAL ANAL SPHINCTER N/A 10/20/2015 CHEMODENERVATION INTERNAL ANAL SPHINCTER performed by Domenico Barraza DO at [facility] COLONOSCOPY, DIAGNOSTIC (RECTUM) 01/19/2007 COLONOSCOPY, DIAGNOSTIC (RECTUM) 08/10/2013 normal, repeat 5 yrs/COLONOSCOPY FLEXIBLE PROXIMAL DIAGNOSTIC performed by Tete Cr DO at [facility] COLONOSCOPY, DIAGNOSTIC (RECTUM) 04/18/2022 end to end colo-colonic anastomosis, diverticulosis in sigmoid / no specimens collected / 5 year recall / COLONOSCOPY FLEXIBLE PROXIMAL DIAGNOSTIC performed by Tete Cr DO at ENDOSCOPY [facility] CORONARY ANGIOGRAPHY W/LEFT HEART CATH Left 02/25/2020 CORONARY ANGIOGRAPHY W/LEFT HEART CATH performed by Ilan Plascencia DO at [facility] CORONARY ANGIOGRAPHY W/LEFT HEART CATH Right 02/25/2020 CORONARY ANGIOGRAPHY W/LEFT HEART CATH performed by Jerrica Braboza MD at [facility] CORONARY ANGIOGRAPHY W/LEFT HEART CATH Right 09/20/2020 CORONARY ANGIOGRAPHY W/LEFT HEART CATH performed by Kelton Womack MD at [facility] EGD, FLEXIBLE, DIAGNOSTIC 07/21/2014 mild gastritis/ESOPHAGOGASTRODUODENOSCOPY (EGD), FLEXIBLE, TRANSORAL, DIAGNOSTIC performed by Lalitha Cr DO at ENDOSCOPY [facility] EGD, FLEXIBLE, DIAGNOSTIC 04/17/2021 fundic gastric polyp / ESOPHAGOGASTRODUODENOSCOPY (EGD), FLEXIBLE, TRANSORAL, DIAGNOSTIC performed by Rosario Pope DO at [facility] EGD, FLEXIBLE, DIAGNOSTIC N/A 06/26/2023 gastritis/multiple gastric polyps/biopsies show fundic polyps/EGD EGD, FLEXIBLE, DIAGNOSTIC 06/26/2023 ESOPHAGOGASTRODUODENOSCOPY (EGD), FLEXIBLE, TRANSORAL, DIAGNOSTIC performed by Rosario Pope DOat ENDOSCOPY [facility] EGD, FLEXIBLE, W/BIOPSY 03/29/2008 mod chronic gastritis EXCLUSION SM.BOWEL FROM PELVIS 03/24/2001 13 inches removed INFORMATION 10/15/2011 laparoscopic ventral hernia repair with mesh [facility] - Dr. Sourav Wood INJECT DX/THER SUBSTANCE INTERLAMINAR CERVICAL/THORACIC W IMAGE GUIDE 04/08/2022 INJECTION SPINE LUMBAR CERVICAL OR THORACIC performed by Anuj Pierce DO at [facility] LUMBAR HEMILAMINECTOMY 03/13/2009 LAMINOTOMY DECOMPRESSION NERVE ROOT LUMBAR performed by NORM BILLINGS at [facility] LUMBAR SPINE FUSION, POST INTERBODY 03/10/2012 ARTHRODESIS SPINE POSTERIOR INTERBODY WITH LAMINECTOMY LUMBAR performed by Norm Billings DO [facility] LUMBAR SPINE FUSION, POSTEROLATERAL 03/10/2012 ARTHRODESIS SPINE POSTERIOR LUMBAR performed by Norm Billings DO at [facility] MICROSURGERY ADD-ON 07/06/2012 MICROSURGICAL SURGERY REQUIRING MICROSCOPE LISTED SEPARATELY performed by Norm Billings DO at [facility] NM GASTRIC EMPTYING STUDY SOLID 03/31/2008 T 1/2= 103 minutes REMOVE ADDED SPINE LAMINA, 1 SEG 03/10/2012 LAMINECTOMY FACETECTOMY AND FORAMINOTOMY ADDITIONAL LEVELS performed by Norm Billings DO at [facility] REMOVE GALLBLADDER REMOVE LUMBAR SPINE LAMINA, 1 SEG 03/10/2012 LAMINECTOMY FACETECTOMY AND FORAMINOTOMY POSTERIOR LUMBAR performed by Norm Billings DO at [facility] REMOVE LUMBAR SPINE LAMINA, 1 SEG N/A 04/23/2019 LAMINECTOMY FACETECTOMY AND FORAMINOTOMY LUMBAR performed by Lm Valle MD at [facility] REPAIR SPINAL FLUID LEAK,W/LAMINECT 07/06/2012 REPAIR SPINAL CEREBROSPINAL FLUID LEAK WITH POSTERIOR LAMINECTOMY performed by Norm Billings DO at [facility] REVERSE TOTAL SHOULDER ARTHROPLASTY Right 07/11/2022 REVERSE TOTAL SHOULDER ARTHROPLASTY performed by Sami Angelo DO at [facility] REVISION OF ULNAR NERVE AT [place] SPINE FIXATION, POSTERIOR, (ELDER) 03/10/2012 POSTERIOR SPINE INSTRUMENTATION NON SEGMENTAL performed by Norm Billings DO at [facility] TOTAL HYSTERECTOMY 03/24/1981 Review of patient's allergies indicates: Allergen Reactions Clarithromycin Other Reaction(s): Rash, diarrhea, RASH,DIARRHEA Duloxetine Hcl Flushing and Nausea/vomiting Prednisone Other (Please comment) pancreatitis Adhesive Tape Other Reaction(s): Tape- redness, paper tape/coban "ok", [id number] TAPE OK OR COBAN Erythromycin Base Rash Penicillins Rash Sulfa Antibiotics Rash Orlistat Other Reaction(s): GI UPSET Family History Problem Relation Name Age of Onset Heart Disorder Father NC--triple bipass Family Status Relation Status Mo Alive Fa Alive Social History Socioeconomic History Marital status: Spouse name: Not on file Number of children: Not on file Years of education: Not on file Highest education level: Not on file Occupational History Not on file Tobacco Use Smoking status: Never Smokeless tobacco: Never Vaping Use Vaping status: Never Used Substance and Sexual Activity Alcohol use: No Drug use: Never Sexual activity: Not on file Other Topics Concern Service Not Asked Blood Transfusions Yes Caffeine Concern Not Asked Occupational Exposure Not Asked Hobby Hazards Not Asked Sleep Concern Not Asked Stress Concern Not Asked Weight Concern Not Asked Special Diet Not Asked Back Care Not Asked Exercise Not Asked Bike Helmet Not Asked Seat Belt Not Asked Self-Exams Not Asked Social History Narrative Not on file Social Determinants of Health Financial Resource Strain: Not on file Food Insecurity: No Food Insecurity (08/24/2023) Food Insecurity Do you need food for this week? (Adult - for ages 18 years and over): No Are you able to get enough food for your family? (Household - for ages 0-17 years): Not on file Does your family need food this week? (Household - for ages 0-17 years): Not on file Do you always have enough food for your family? (Household - for ages 0-17 years): Not on file Transportation Needs: No Transportation Needs (08/24/2023) Transportation Needs Do you have trouble getting a ride to medical visits or work? (Adult - for ages 18 years and over):Never True Does your family have a hard time getting a ride to doctors visits? (Household - for ages 0-17 years): Not on file Has lack of transportation kept you from medical appointments, meetings, work, or from getting things needed for daily living? Check all that apply. (Adult - for ages 18 years and over): Not on file Do you (or your family) have trouble finding or paying for a ride (transportation)? (Household - for ages 0-17 years): Not on file Social Connections: Unknown (09/09/2023) Social Connections How often do you feel lonely or isolated from those around you? (Adult - for ages 18 years and over): Not on file Housing Stability: Low Risk (08/24/2023) Housing Stability Do you currently live in a retirement or have no steady place to sleep at night? (Adult - for ages 18 years and over): Not on file Do you think you are at risk of becoming homeless? (Adult - for ages 18 years and over): No Does your family worry about paying for your home or becoming homeless? (Household - for ages 0-17 years): Not on file Are you homeless or worried that you might be in the future? (Adult - for ages 18 years and over): Not on file Are you (or your family) homeless or worried that you might be in the future? (Household - for ages0-17 years): Not on file Objective: BP 114/70 | Pulse 57 | Temp 36 C (96.8 F) (Tympanic) | Resp 20 | Wt 81.2 kg (179 lb) | SpO2 96%| BMI 30.73 kg/m | BSA 1.92 m Physical Exam Vitals and nursing note reviewed. Constitutional: Appearance: She is normal weight. She is not ill-appearing. HENT: Head: Normocephalic and atraumatic. Jaw: There is normal jaw occlusion. Right Ear: Tympanic membrane and ear canal normal. Left Ear: Tympanic membrane and ear canal normal. Nose: Nose normal. Mouth/Throat: Lips: [place]. Mouth: Mucous membranes are moist. Pharynx: Oropharynx is clear. No oropharyngeal exudate or posterior oropharyngeal erythema. Eyes: General: No scleral icterus. Conjunctiva/sclera: Conjunctivae normal. Pupils: Pupils are equal, round, and reactive to light. Cardiovascular: Rate and Rhythm: Normal rate and regular rhythm. Pulses: Normal pulses. Heart sounds: No murmur heard. Pulmonary: Effort: Pulmonary effort is normal. Breath sounds: Normal breath sounds. No wheezing, rhonchi or rales. Abdominal: General: Abdomen is flat. There is no distension. Palpations: Abdomen is soft. There is no fluid wave. Tenderness: There is abdominal tenderness in the epigastric area and left lower quadrant. There is no right CVA tenderness, left CVA tenderness, guarding or rebound. Hernia: No hernia is present. Musculoskeletal: General: No swelling. Cervical back: Normal range of motion and neck supple. No rigidity. No muscular tenderness. Lumbar back: Tenderness and bony tenderness present. No swelling or edema. Negative right straight leg raise test and negative left straight leg raise test. Back: Right lower leg: No edema. Left lower leg: No edema. Lymphadenopathy: Cervical: No cervical adenopathy. Skin: General: Skin is warm and dry. Capillary Refill: Capillary refill takes less than 2 seconds. Findings: No rash. Neurological: General: No focal deficit present. Mental Status: She is oriented to person, place, and time. Psychiatric: Mood and Affect: Mood normal. ASSESSMENT: Abdominal pain, epigastric (Primary) - Famotidine 20 MG Oral Tablet (Pepcid); Take 1 Tablet by mouth in the morning and 1 Tablet before bedtime. Chronic superficial gastritis without bleeding - Famotidine 20 MG Oral Tablet (Pepcid); Take 1 Tablet by mouth in the morning and 1 Tablet before bedtime. Coronary artery disease involving lower sioux coronary artery of lower sioux heart without angina pectoris Diastolic dysfunction Postlaminectomy syndrome, lumbar EKG could not be done today since patient did not bring device to deactivate her spinal stimulator. Epigastric abdominal pain likely related to esophageal spasms. Encouraged to start famotidine 20 mgtwice a day with meals and continue current dose of sucralfate and pantoprazole. Patient encouraged to try sublingual nitroglycerin if they sharp epigastric pain occur since it mayhelp with the esophageal spasms. Continue other medications. If abdominal pain oral contrast. worsens, consider CT scan of the abdomen and pelvis with and without IV contrast and with oral contrast. Follow Up: Return if symptoms worsen or fail to improve. Alex Gerardo MD documented in this encounter Nursing Notes * Bekah Concepcion MED ASSIST - 10/10/2023 11:39 AM EDT The patient has been properly identified by confirmation of name and date of . Chief Complaint Patient presents with Acute Upper belly pain, pain shoots over to her left side under her breast. She is also having lower back pain on the left side goes into her left groin area. Has been going on for about a week. Question if something is going on with her back since she had a fusion. documented in this encounter Plan of Treatment Upcoming Encounters Date Type Department Care Team (Late st Contact Info) Description 11/19/2023 10:00 AM EDT Office Visit Nutrition & Weight Management, [address] [place] [address] Anai Schultz PA-C [address] [place] [phone] 12/22/2023 1:40 PM EDT Office Visit Family Practice [facility] [address] [place] [phone] Keagan Sanchez MD [address] [place] [address] 08/09/2024 10:00 AM EDT Office Visit Orthopaedics [facility] [address] [place] [phone] Sami Angelo DO [address] [place] [address] 10/07/2024 2:40 PM EDT Office Visit Dermatology [facility] [address] [place] [phone] Alden Ann PA-C [address] [place] [id number] Scheduled Procedures Name Priority Associated Diagnoses Date/Ti [...] 09/10/2022, Additional history exists GFR 08/24/2024 08/25/2023, 060 03/2023, 07/20/2023, Additional history exists DTaP,Tdap,and Td Vaccines (3 - Td or Tdap) 10/10/2026 10/10/2016, 10/26/2005 Colonoscopy 04/18/2027 04/18/2022, 03/25, 08/10/2013, Additional history exists Colorectal Cancer Screening 04/18/2027 VITAMIN D LEVEL ONCE IN A LIFETIME-USE SMARTSET# [id number] Completed 01/28/2022, 02/21/2015, 12/30/2011 RETIRED - COLONOSCOPY-EVERY [...] this encounter Medical Devices Implanted Type Area Nursing Informatics Analyst Device Identifier Shelf Expiration Date Model / Serial / Lot Screw Jami Lacie 3 Ti Set - [id number] Implanted:Qty: 6 on 03/10/2012 at [facility] Bilateral: Spine Lumbar LEVON : SPINE [id number] / / Screw Lacie Pa Ti 6.5x50mm - [id number] Implanted:Qty: 4 on 03/10/2012 at [facility] Bilateral: Spine Lumbar LEVON : SPINE [id number] / / [employer] Xia3 7.0 X 40mm Screws Implanted:Qty: 2 on 03/10/2012 at [facility] Bilateral: Spine Lumbar [id number] / / Shaun Lacie 3 Ti 6x70mm - [id number] Implanted:Qty: 1 on 03/10/2012 at [facility] N/A: Spine Lumbar LEVON : SPINE [id number] / / Shaun Lacie 3 Ti Max 6x80mm - [id number] Implanted:Qty: 1 on 03/10/2012 at [facility] N/A: Spine Lumbar LEVON : SPINE [id number] / / 9 X 25 X 4 - 8 Avs Wedge Nose Cage Implanted:Qty: 1 on 03/10/2012 at [facility] N/A: Spine Lumbar [id number] / / Stent Synergy Xd Mr 2.40t57ub - [id number] Implanted:Qty: 1 on 09/20/2020 at [facility] [employer] [id number] 04/18/2022 [id number] / / [id number] Stent Synergy Xd Mr 2.86w24vu - [id number] Implanted:Qty: 1 on 09/20/2020 at [facility] [employer] [id number] 04/25/2022 [id number] 220 / / [id number] Screw Locking 4.5mm 15mm - [id number] Implanted:Qty: 1 on 07/11/2022 by Sami Angelo DO at [facility] Right: Shoulder [employer] 11/22/2025 [id number] / / [id number] Bseplate Jasmeet Cmntlss W Scrw - [id number] Implanted:Qty: 1 on 07/11/2022 by Sami Angelo DO at [facility] Right: Shoulder [employer] 03/24/2027 105-0029 / / [id number] [employer] Rev Thee W Scrw - [id number] Implanted:Qty: 1 on 07/11/2022 by Sami Angelo DO at [facility] Right: Shoulder [employer] 04/24/2027 105-3610 / / [id number] Screw Locking 4.5mm 15mm - [id number] Implanted:Qty: 1 on 07/11/2022 by Sami Angelo DO at [facility] Right: Shoulder [employer] 03/24/2027 108-4515 / / [id number] Screw Locking 4.5mm 20mm - [id number] Implanted:Qty: 1 on 07/11/2022 by Sami Angelo [...] / [id number] Screw Locking 4.5mm 20mm - [id number] Implanted:Qty: 1 on 07/11/2022 by Sami Angelo DO at [facility] Right: Shoulder [employer] 03/24/2027 [id number] / / [id number] documented as of this encounter Visit Diagnoses Diagnosis Abdominal pain, epigastric- Primary Chronic superficial gastritis without bleeding Atrophic gastritis without mention of hemorrhage Coronary artery disease involving lower sioux coronary artery of lower sioux heart without angina pectoris Diastolic dysfunction Heart disease, unspecified Postlaminectomy syndrome, lumbar Postlaminectomy syndrome, lumbar region [...] Pace Spouse Health Care Agent Care Teams Refinery Pipeline Operator Relationship Specialty Start Date End Date Keagan Sanchez MD [address] [place] [phone] PCP - General Family Medicine 10/07/23 documented as of this encounter
--- OUTSIDE RECORDS SUMMARY | 2024-03-06 12:40 | External Medical Summary | Summary of Care ---
Author Name Unknown Organization [facility] Address [address] [facility] [place] [address] Phone [phone] Care Team Providers Care Gas Plumbing Inspector Name Role Phone Keagan Sanchez MD Primary Care Provider [phone] Reason for Referral * Precert (Within 10 days (routine)) - Authorized Specialty Diagnoses / Procedures Referred By Contac t Referred To Contact Cardiac Studies Diagnoses Ascending aorta enlargement (HCC) Procedures ECHO, COMPLETE (2D), TRANS-THORACIC Keagan Sanchez MD [address] [place] [address] Referral ID Status Reason Start Date Expiration Date V isits Requested Visits Authorized [id number] Authorized Precert 10/06/2023 999 999 Reason for Visit * Reason Onset Date Comments Test Results 10/06/2023 LMOM 10/08/23 Encounter Details Date Type Department Care Team ([facility] st Contact Info) Description 10/06/2023 Telephone Family Practice [address] [phone] Keagan Sanchez MD [address] [place] [address] Test Results (LMOM 10/08/23) Allergies Active Allergy Reactions Criticality Noted Date Comments Duloxetine Hcl Flushing,Nausea/vomi tin g High 10/20/2019 Erythromycin Base Rash 03/14/2004 Orlistat Low 03/31/2023 Other Reaction(s): GI UPSET Penicillins Rash 03/14/2004 Sulfa Antibiotics Rash 03/14/2004 documented as of this encounter (statuses as of 10/09/2023) Medications Medication Sig Dispensed Refills Start Date [...] as of this encounter (statuses as of 10/09/2023) Active Problems Problem Noted Date Diagnosed Date [...] as of this encounter (statuses as of 10/09/2023) Resolved Problems Problem Noted Date Diagnosed Date [...] as of this encounter (statuses as of 10/09/2023) Immunizations Name Administration Dates Next Due COVID-19 [...] encounter Miscellaneous Notes * Telephone Encounter - Suzanne Harrison OSA - 10/09/2023 10:53 AM EDT Spoke with patient and scheduled * Telephone Encounter - Joon Perez LPN - 10/08/2023 4:02 PM EDT Please assist with scheduling an appointment per provider tx * Telephone Encounter - Jamarcus Carreno PA-C - 10/08/2023 3:32 PM EDT Echo findings do not explain her symptomatic concerns. Offer f/u in office to further discuss her concerns. * Telephone Encounter - Joon Perez LPN - 10/08/2023 3:28 PM EDT Please advise message. Would you like for her to be evaluated in the office. Tx * Telephone Encounter - Ming Bean LPN - 10/08/2023 3:11 PM EDT [...] about test results Caller was transferred to ming at the nurse line. * Telephone Encounter [...] patient to relay the results to her [phone] * Telephone Encounter - Keagan Sanchez MD [...] Upcoming Encounters Date Type Department Care Team ([facility] st Contact Info) Description 10/10/2023 11:30 AM EDT Office Visit [address] [phone] Alex Alvarado MD [address] [place] [address] 11/19/2023 10:00 AM EDT Office Visit Nutrition & Weight Management, [facility] [address] [facility] [place] [address] Anai Schultz PA-C [facility] [place] [address] 12/22/2023 1:40 PM EDT Office Visit [address] [phone] Keagan Sanchez MD [address] [place] [address] 08/09/2024 10:00 AM EDT Office Visit Orthopaedics [facility] 16 [place] [address] Sami Angelo DO 16 [place] [address] 10/07/2024 2:40 PM EDT Office Visit Dermatology [address] [phone] Alden Ann PA-C [address] [place] [address] Scheduled Orders Name Type Priority Associated Diagnoses [...] D LEVEL ONCE IN A LIFETIME-USE SMARTSET# 48859 Completed 01/28/2022, 02/21/2015, 12/30/2011 RETIRED - COLONOSCOPY-EVERY [...] this encounter Medical Devices Implanted Type Area Dental Treatment Coordinator Device Identifier Shelf Expiration Date Model / Serial / Lot Screw Jami Lacie 3 Ti Set - [id number] Implanted:Qty: 6 on 03/10/2012 at [place] [facility] Bilateral: Spine Lumbar LEVON : SPINE [id number] / / Screw Lacie Pa Ti 6.5x50mm - [id number] Implanted:Qty: 4 on 03/10/2012 at OR [facility] Bilateral: Spine Lumbar LEVON : SPINE [id number] / / Levon Xia3 7.0 X 40mm Screws Implanted:Qty: 2 on 03/10/2012 at OR [facility] Bilateral: Spine Lumbar [id number] / / Shaun Lacie 3 Ti 6x70mm - [id number] Implanted:Qty: 1 on 03/10/2012 at OR [facility] N/A: Spine Lumbar LEVON : SPINE [id number] / / Shaun Lacie 3 Ti Max 6x80mm - [id number] Implanted:Qty: 1 on 03/10/2012 at OR [facility] N/A: Spine Lumbar LEVON : SPINE [id number] / / 9 X 25 X 4 - 8 Avs Wedge Nose Cage Implanted:Qty: 1 on 03/10/2012 at OR [facility] N/A: Spine Lumbar [id number] / / Stent Synergy Xd Mr 2.19y86vy - [id number] Implanted:Qty: 1 on 09/20/2020 at [facility] MUJIN [id number] 04/18/2022 [id number] 220 / / [id number] Stent Synergy Xd Mr 2.17d46el - [id number] Implanted:Qty: 1 on 09/20/2020 at [facility] MUJIN [id number] 04/25/2022 [id number] 220 / / [id number] Screw Locking 4.5mm 15mm - [id number] Implanted:Qty: 1 on 07/11/2022 by Sami Angelo DO at [facility] Right: Shoulder [employer] 11/22/2025 108-4515 / / [id number] Bseplate Jasmeet Cmntlss W Scrw - [id number] Implanted:Qty: 1 on 07/11/2022 by Sami Angelo DO at OR [facility] Right: Shoulder [employer] SAS 03/24/2027 105-0029 / / [id number] Glenosphere Rev Thee W Scrw - [id number] Implanted:Qty: 1 on 07/11/2022 by Sami Angelo DO at OR [facility] Right: Shoulder [employer] SAS 04/24/2027 105-3610 / / [id number] Screw Locking 4.5mm 15mm - [id number] Implanted:Qty: 1 on 07/11/2022 by Sami Angelo DO at [facility] Right: Shoulder [employer] 03/24/2027 108-4515 / / [id number] Screw Locking 4.5mm 20mm - [id number] Implanted:Qty: 1 on 07/11/2022 by Sami Angelo DO at [facility] Right: Shoulder [employer] 03/24/2027 108-4520 / / [id number] Humelock Ii Stem Ta6v Size 12 Cementless Implanted:Qty: 1 on 07/11/2022 by Sami Angelo DO at [facility] Right: Shoulder [employer] SAS 10/22/2026 311-0212 / / [id number] Cortical Screw Ta6v, 5mm, L. 24mm Implanted:Qty: 1 on 07/11/2022 by Sami Angelo DO at [facility] Right: Shoulder [employer] 09/22/2023 107-4524 / / [id number] Humeral Cup 135/145 Degree, Standard, 36/+6 Implanted:Qty: 1 on 07/11/2022 by Sami Angelo DO at [facility] Right: Shoulder 02/21/2025 313-0706 / / [id number] Screw Locking 4.5mm 20mm - [id number] Implanted:Qty: 1 on 07/11/2022 by Sami Angelo, DO at OR [facility] Right: Shoulder [employer] 03/24/2027 108-4520 [...] Care Agent [id number] (Mobile) Care Teams Gas Plumbing Inspector Relationship Specialty Start Date End Date Keagan Sanchez MD [address] [place] [address] PCP - General Family Medicine 10/07/23 documented as of this encounter
--- OUTSIDE RECORDS SUMMARY | 2024-03-06 12:40 | External Medical Summary | Summary of Care ---
Author Name Unknown Organization [facility] Address [address] [facility] [place] [address] Phone [phone] Care Team Providers Care Senior Javascript Developer Name Role Phone Keagan Sanchez MD Primary Care Provider [phone] Reason for Referral * Precert (Within 10 days (routine)) - Authorized Specialty Diagnoses / Procedures Referred By Contac t Referred To Contact Cardiac Studies Diagnoses Ascending aorta enlargement (HCC) Procedures ECHO, COMPLETE (2D), TRANS-THORACIC Keagan Sanchez MD [address] [place] [address] Referral ID Status Reason Start Date Expiration Date V isits Requested Visits Authorized [id number] Authorized Precert 10/06/2023 999 999 Reason for Visit * Reason Onset Date Comments Test Results 10/06/2023 LMOM 10/08/23 Encounter Details Date Type Department Care Team ([facility] st Contact Info) Description 10/06/2023 Telephone Family Practice [address] [phone] Keagan Sanchez MD [address] [place] [phone] Test Results (LMOM 10/08/23) Allergies Active [...] hypothyroidism 04/12/2021 Coronary artery disease invo lving [place] coronary artery of [place] heart without angina pectoris 09/27/2020 S/P angioplasty [...] encounter Miscellaneous Notes * Telephone Encounter - Joon Perez LPN [...] patient to relay the results to her [phone] * Telephone Encounter - Keagan Sanchez MD [...] EDT Office Visit Nutrition & Weight Management, [facility] 132 [facility] [place] [address] Anai Schultz PA-C [address] [place] [address] 12/22/2023 1:40 PM EDT Office Visit [address] [phone] Keagan Sanchez MD [address] [place] [address] 08/09/2024 10:00 AM EDT Office Visit Orthopaedics [facility] Ale[facility]re 16 [place] [address] Sami Angelo DO 16 [place] [address] 10/07/2024 2:40 PM EDT Office Visit Dermatology [facility] 68 [place] [phone] Alden Ann PA-C [address] [place] [address] Scheduled Orders Name Type Priority Associated Diagnoses [...] 07/17/2023, 11/2022, 09/10/2022, Additional history exists GFR 08/24/2024 08/25/2023, 03/2023, 07/20/2023, Additional history exists DTaP,Tdap,and Td Vaccines (3 - Td or Tdap) 10/10/2026 10/10/2016, 10/26/2005 Colonoscopy 04/18/2027 04/18/2022, 03/25, 08/10/2013, Additional history exists Colorectal Cancer Screening 04/18/2027 VITAMIN D LEVEL ONCE IN A LIFETIME-USE SMARTSET# 79784 Completed 01/28/2022, 02/21/2015, 12/30/2011 RETIRED - COLONOSCOPY-EVERY [...] this encounter Medical Devices Implanted Type Area Electrical Equipment Assembler Device Identifier Shelf Expiration Date Model / Serial / Lot Screw Jami Lacie 3 Ti Set - [id number] Implanted:Qty: 6 on 03/10/2012 at OR [facility] Bilateral: Spine Lumbar LEVON : SPINE [id number] / / Screw Lacie Pa Ti 6.5x50mm - [id number] Implanted:Qty: 4 on 03/10/2012 at OR [facility] Bilateral: Spine Lumbar LEVON : SPINE [id number] / / [place] Xia3 7.0 X 40mm Screws Implanted:Qty: 2 on 03/10/2012 at OR [facility] Bilateral: Spine Lumbar [id number] / / Shaun Lacie 3 Ti 6x70mm - [id number] Implanted:Qty: 1 on 03/10/2012 at OR [facility] N/A: Spine Lumbar LEVON : SPINE [id number] / / Shaun Lacie 3 Ti Max 6x80mm - [id number] Implanted:Qty: 1 on 03/10/2012 at OR [facility] N/A: Spine Lumbar LEVON : SPINE [id number] / / 9 X 25 X 4 - 8 Avs Wedge Nose Cage Implanted:Qty: 1 on 03/10/2012 at OR [facility] N/A: Spine Lumbar [id number] / / Stent Synergy Xd Mr 2.99j20wh - [id number] Implanted:Qty: 1 on 09/20/2020 at [facility] [employer] [id number] 04/18/2022 [id number] 220 / / [id number] Stent Synergy Xd Mr 2.72d77kj - [id number] Implanted:Qty: 1 on 09/20/2020 at [facility] [employer] [id number] 04/25/2022 [id number] 220 / / [id number] Screw Locking 4.5mm 15mm - [id number] Implanted:Qty: 1 on 07/11/2022 by Sami Angelo DO at OR [facility] Right: Shoulder [employer] 11/22/2025 108-4515 / / [id number] Bseplate Jasmeet Cmntlss W Scrw - [id number] Implanted:Qty: 1 on 07/11/2022 by Sami Angelo DO at OR [facility] Right: Shoulder [employer] 03/24/2027 105-0029 / / T1484 Glenosphere Rev Thee W Scrw - [id number] Implanted:Qty: 1 on 07/11/2022 by Sami Angelo DO at OR [facility] Right: Shoulder [employer] 04/24/2027 105-3610 / / T1980 Screw Locking 4.5mm 15mm - [id number] Implanted:Qty: 1 on 07/11/2022 by Sami Angelo DO at OR [facility] Right: Shoulder [employer] 03/24/2027 108-4515 / / T2497 Screw Locking 4.5mm 20mm - [id number] Implanted:Qty: 1 on 07/11/2022 by Sami Angelo, at OR [facility] Right: Shoulder [employer] 03/24/2027 108-4520 / / T1780 Humelock Ii Stem Ta6v Size 12 Cementless Implanted:Qty: 1 on 07/11/2022 by Sami Angelo DO at OR [facility] Right: Shoulder [employer] 10/22/2026 311-0212 / / [id number] Cortical Screw Ta6v, 5mm, L. 24mm Implanted:Qty: 1 on 07/11/2022 by Sami Angelo DO at OR [facility] Right: Shoulder [employer] 09/22/2023 107-4524 / / N1623 Humeral Cup 135/145 Degree, Standard, 36/+6 Implanted:Qty: 1 on 07/11/2022 by Sami Angelo DO at OR [facility] Right: Shoulder 02/21/2025 313-0706 / / N0222 Screw Locking 4.5mm 20mm - [id number] Implanted:Qty: 1 on 07/11/2022 by Sami Angelo DO at OR [facility] Right: Shoulder [employer] 03/24/2027 108-4520 [...] Spouse Health Care Agent Care Teams Senior Javascript Developer Relationship Specialty Start Date End Date Keagan Sanchez MD [address] [place] [address] PCP - General Family Medicine 10/07/23 documented as of this encounter
--- OUTSIDE RECORDS SUMMARY | 2024-03-06 12:40 | External Medical Summary | Summary of Care ---
Author Name Unknown Organization [facility] Address [address] [facility] [place] [address] Phone [phone] Care Team Providers Care Motor Vehicle Compliance Analyst Name Role Phone Keagan Sanchez MD Primary Care Provider [phone] Reason for Visit * Reason Onset Date Comments [facility]: Screening 10/24/2023 Encounter Details Date Type Department Care Team (Late st Contact Info) Description 10/24/2023 Telephone [facility], [facility] [address] [facility] [place] [address] [facility], Nurse [facility] [address] [facility] [place] [phone] [facility]: Screening Allergies Active Allergy Reactions Criticality Noted Date Comments Adhesive Tape 03/31/2023 Other Reaction(s): Tape- redness, paper tape/coban "ok", PEOU-[id number] TAPE OK OR COBAN Clarithromycin High 03/31/2023 [...] hypothyroidism 04/12/2021 Coronary artery disease invo lving [place] coronary artery of [place] heart without angina pectoris 09/27/2020 S/P angioplasty [...] Referring care team was notified via : [employer] communication documented in this encounter Plan of Treatment Upcoming Encounters Date Type Department Care Team (Late st Contact Info) Description 11/19/2023 10:00 AM EDT Office Visit Nutrition & Weight Management, [facility] 132 [facility] [place] [address] Anai Schultz PA-C 132 [facility] [place] [address] 12/22/2023 1:40 PM EDT Office Visit Family [facility] 68 [place] [phone] Keagan Sanchez MD [address] [place], [place] [address] [address] 08/09/2024 10:00 AM EDT Office Visit Orthopaedics [facility] Alejandre [address] [place] [address] [place] [address] Sami Angelo, DO 16 [place] [address] 10/07/2024 2:40 PM EDT Office Visit Dermatology [facility] 68 [place] [address] Alden Ann PA-C [address] [place] [address] Scheduled Procedures Name Priority Associated Diagnoses Date/Ti [...] D LEVEL ONCE IN A LIFETIME-USE SMARTSET# 59972 Completed 01/28/2022, 02/21/2015, 12/30/2011 RETIRED - COLONOSCOPY-EVERY [...] this encounter Medical Devices Implanted Type Area Loan Services Professional Device Identifier Shelf Expiration Date Model / Serial / Lot Screw Jami Lacie 3 Ti Set - [id number] Implanted:Qty: 6 on 03/10/2012 at [place] [facility] Bilateral: Spine Lumbar LEVON : SPINE [id number] / / Screw Lacie Pa Ti 6.5x50mm - [id number] Implanted:Qty: 4 on 03/10/2012 at OR [facility] Bilateral: Spine Lumbar LEVON : SPINE [id number] / / [place] Xia3 7.0 X 40mm Screws Implanted:Qty: 2 on 03/10/2012 at OR [facility] Bilateral: Spine Lumbar [id number] / / Shaun Lacie 3 Ti 6x70mm - [id number] Implanted:Qty: 1 on 03/10/2012 at OR [facility] N/A: Spine Lumbar LEVON : SPINE [id number] / / Shaun Lacie 3 Ti Max 6x80mm - [id number] Implanted:Qty: 1 on 03/10/2012 at [place] [facility] N/A: Spine Lumbar LEVON : SPINE [id number] / / 9 X 25 X 4 - 8 Avs Wedge Nose Cage Implanted:Qty: 1 on 03/10/2012 at [place] [facility] N/A: Spine Lumbar [id number] / / Stent Synergy Xd Mr 2.87r58or - [id number] Implanted:Qty: 1 on 09/20/2020 at [facility] Cell[employer] [id number] 04/18/2022 [id number] 220 / / [id number] Stent Synergy Xd Mr 2.37o51gy - [id number] Implanted:Qty: 1 on 09/20/2020 at [facility] [employer] [id number] 04/25/2022 [id number] 220 / / [id number] Screw Locking 4.5mm 15mm - [id number] Implanted:Qty: 1 on 07/11/2022 by Sami Angelo DO at [facility] Right: Shoulder [employer] 11/22/2025 108-4515 / / S0731 Bseplate Jasmeet Cmntlss W Scrw - [id number] Implanted:Qty: 1 on 07/11/2022 by Sami Angelo DO at [facility] Right: Shoulder [employer] SAS 03/24/2027 105-0029 / / T1484 Glenosphere Rev Thee W Scrw - [id number] Implanted:Qty: 1 on 07/11/2022 by Sami Angelo DO at [facility] Right: Shoulder [employer] 04/24/2027 105-3610 / / T1980 Screw Locking 4.5mm 15mm - [id number] Implanted:Qty: 1 on 07/11/2022 by Sami Angelo DO at [facility] Right: Shoulder [employer] 03/24/2027 108-4515 / / T2497 Screw Locking 4.5mm 20mm - [id number] Implanted:Qty: 1 on 07/11/2022 by Sami Angelo DO at [facility] Right: Shoulder [employer] 03/24/2027 108-4520 / / T1780 Humelock Ii Stem Ta6v Size 12 Cementless Implanted:Qty: 1 on 07/11/2022 by Sami Angelo DO at [facility] Right: Shoulder [employer] 10/22/2026 311-0212 / / [id number] Cortical Screw Ta6v, 5mm, L. 24mm Implanted:Qty: 1 on 07/11/2022 by Sami Angelo, DO at OR [facility] Right: Shoulder [employer] 09/22/2023 107-4524 / / N1623 Humeral Cup 135/145 Degree, Standard, 36/+6 Implanted:Qty: 1 on 07/11/2022 by Sami Angelo, DO at [facility] Right: Shoulder 02/21/2025 313-0706 / / N0222 Screw Locking 4.5mm 20mm - [id number] Implanted:Qty: 1 on 07/11/2022 by Sami Angelo, DO at [facility] Right: Shoulder [employer] 03/24/2027 108-4520 [...] Pace Spouse Health Care Agent Care Teams Motor Vehicle Compliance Analyst Relationship Specialty Start Date End Date Keagan Sanchez MD [address] [place] [address] PCP - General Family Medicine 10/07/23 documented as of this encounter
--- OUTSIDE RECORDS SUMMARY | 2024-03-06 12:40 | External Medical Summary | Summary of Care ---
Author Name Unknown Organization [facility] Address [address] [facility] [place] [address] Phone [phone] Care Team Providers Care Electrical Parts Reconditioner Name Role Phone Keagan Sanchez MD Primary Care Provider [phone] Reason for Referral * Precert (Within 10 days (routine)) - Authorized Specialty Diagnoses / Procedures Referred By Contac t Referred To Contact Cardiac Studies Diagnoses Ascending aorta enlargement (HCC) Procedures ECHO, COMPLETE (2D), TRANS-THORACIC Keagan Sanchez MD [address] [place] [address] Referral ID Status Reason Start Date Expiration Date V isits Requested Visits Authorized [id number] Authorized Precert 10/06/2023 999 999 Reason for Visit * Reason Onset Date Comments Test Results 10/06/2023 LMOM 10/08/23 Encounter Details Date Type Department Care Team ([facility] st Contact Info) Description 10/06/2023 Telephone Family Practice [address] [phone] Keagan Sanchez MD [address] [place] [address] Test Results (LMOM 10/08/23) Allergies Active [...] hypothyroidism 04/12/2021 Coronary artery disease invo lving [place] coronary artery of [place] heart without angina pectoris 09/27/2020 S/P angioplasty [...] about test results Caller was transferred to [facility] at the nurse line. * Telephone [...] patient to relay the results to her [phone] * Telephone Encounter - Keagan Sanchez MD [...] EDT Office Visit Nutrition & Weight Management, [facility] [address] [place] [address] Anai Schultz PA-C [address] [place] [address] 12/22/2023 1:40 PM EDT Office Visit Family Practice [facility] 68 [place] [address] Keagan Sanchez MD 68 [place] [address] 08/09/2024 10:00 AM EDT Office Visit Orthopaedics [facility] 16 [place] [address] Saim Angelo DO 16 [place], [place] [address] 10/07/2024 2:40 PM EDT Office Visit Dermatology [facility] 68 [place] [address] Alden Ann PA-C [address] [place] [address] Scheduled Orders Name Type Priority Associated Diagnoses [...] D LEVEL ONCE IN A LIFETIME-USE SMARTSET# 31012 Completed 01/28/2022, 02/21/2015, 12/30/2011 RETIRED - COLONOSCOPY-EVERY [...] encounter Medical Devices Implanted Type Area Manager Metal Device Identifier Shelf Expiration Date Model / Serial / Lot Screw Jami Lacie 3 Ti Set - [id number] Implanted:Qty: 6 on 03/10/2012 at [place] [facility] Bilateral: Spine Lumbar LEVON : SPINE [id number] / / Screw Lacie Pa Ti 6.5x50mm - [id number] Implanted:Qty: 4 on 03/10/2012 at [place] [facility] Bilateral: Spine Lumbar LEVON : SPINE [id number] / / [place] Xia3 7.0 X 40mm Screws Implanted:Qty: 2 on 03/10/2012 at [place] [facility] Bilateral: Spine Lumbar [id number] / / Shaun Lacie 3 Ti 6x70mm - [id number] Implanted:Qty: 1 on 03/10/2012 at [place] [facility] N/A: Spine Lumbar LEVON : SPINE [id number] / / Shaun Lacie 3 Ti Max 6x80mm - [id number] Implanted:Qty: 1 on 03/10/2012 at [place] [facility] N/A: Spine Lumbar LEVON : SPINE [id number] / / 9 X 25 X 4 - 8 Avs Wedge Nose Cage Implanted:Qty: 1 on 03/10/2012 at [place] [facility] N/A: Spine Lumbar [id number] / / Stent Synergy Xd Mr 2.25d29mt - [id number] Implanted:Qty: 1 on 09/20/2020 at [facility] Peek@U [id number] 04/18/2022 [id number] 220 / / [id number] Stent Synergy Xd Mr 2.69x53hb - [id number] Implanted:Qty: 1 on 09/20/2020 at [facility] Peek@U [id number] 04/25/2022 [id number] 220 / / [id number] Screw Locking 4.5mm 15mm - [id number] Implanted:Qty: 1 on 07/11/2022 by Sami Angelo DO at [facility] Right: Shoulder [employer] 11/22/2025 108-4515 / / S0731 Bseplate Jasmeet Cmntlss W Scrw - [id number] Implanted:Qty: 1 on 07/11/2022 by Sami Angelo DO at [facility] Right: Shoulder [employer] 03/24/2027 105-0029 / / T1484 Glenosphere Rev Thee W Scrw - [id number] Implanted:Qty: 1 on 07/11/2022 by Sami Angelo DO at [facility] Right: Shoulder [employer] 04/24/2027 105-3610 / / T1980 Screw Locking 4.5mm 15mm - [id number] Implanted:Qty: 1 on 07/11/2022 by Sami Angelo DO at [place] [facility] Right: Shoulder [employer] 03/24/2027 108-4515 / / [id number] Screw Locking 4.5mm 20mm - [id number] Implanted:Qty: 1 on 07/11/2022 by Sami Angelo DO [facility] Right: Shoulder [employer] 03/24/2027 108-4520 [...] / N0222 Screw Locking 4.5mm 20mm - [id number] Implanted:Qty: 1 on 07/11/2022 by Sami Angelo [...] Pace Spouse Health Care Agent Care Teams Electrical Parts Reconditioner Relationship Specialty Start Date End Date Keagan Sanchez MD [address] [place] [address] PCP - General Family Medicine 10/07/23 documented as of this encounter
--- OUTSIDE RECORDS SUMMARY | 2024-03-06 12:40 | External Medical Summary | Summary of Care ---
Author Name Unknown Organization [facility] Address [address] [facility] [place] [address] Phone [phone] Care Team Providers Care Insurance Consultant Name Role Phone Keagan Sanchez MD Primary Care Provider [phone] Reason for Referral * Precert (Within 10 days (routine)) - Authorized Specialty Diagnoses / Procedures Referred By Contac t Referred To Contact Cardiac Studies Diagnoses Ascending aorta enlargement (HCC) Procedures ECHO, COMPLETE (2D), TRANS-THORACIC Keagan Sanchez MD [address] [place] [address] Referral ID Status Reason Start Date Expiration Date V isits Requested Visits Authorized [id number] Authorized Precert 10/06/2023 999 999 Reason for Visit * Reason Onset Date Comments Test Results 10/06/2023 LMOM 10/08/23 Encounter Details Date Type Department Care Team ([facility] st Contact Info) Description 10/06/2023 Telephone Family Practice [address] [phone] Keagan Sanchez MD [address] [place] [phone] Test Results (LMOM 10/08/23) Allergies Active [...] hypothyroidism 04/12/2021 Coronary artery disease invo lving [place] coronary artery of [place] heart without angina pectoris 09/27/2020 S/P angioplasty [...] patient to relay the results to her [phone] * Telephone Encounter - Keagan Sanchez MD [...] Weight Management, [facility] [address] [facility] [place] [address] Anai Schultz PA-C [address] [place] [address] 12/22/2023 1:40 PM EDT Office Visit [address] [phone] Keagan Sanchez MD [address] [place] [address] 08/09/2024 10:00 AM EDT Office Visit Orthopaedics Andrez Alejandre 16 [place] [address] Sami Angelo DO 16 [place] [address] 10/07/2024 2:40 PM EDT Office Visit Dermatology [facility] [address] [place] [phone] Alden Ann PA-C [address] [place] [address] Scheduled Orders Name Type Priority Associated Diagnoses [...] D LEVEL ONCE IN A LIFETIME-USE SMARTSET# 49742 Completed 01/28/2022, 02/21/2015, 12/30/2011 RETIRED - COLONOSCOPY-EVERY [...] this encounter Medical Devices Implanted Type Area Social Service Coordinator Device Identifier Shelf Expiration Date Model / Serial / Lot Screw Jami Lacie 3 Ti Set - [id number] [place]ed:Q[place] 6 [place] [facility] [place]: Spine Lumbar LEVON : SPINE [id number] / / Screw Lacie Pa Ti 6.5x50mm - [id number] Implanted:Qty: 4 on 03/10/2012 [place] [facility] [place]ilateral: Spine Lumbar LEVON : SPINE [id number] / / [place] Xia3 7.0 X 40mm Screws Implanted:Qty: 2 on 03/10/2012 [place] [facility] [place] Bilateral: Spine Lumbar [id number] / / Shaun Lacie 3 Ti 6x70mm - [id number] Implanted:Qty: 1 on 03/10/2012 [place] [facility] [place]A: Spine Lumbar LEVON : SPINE [id number] / / Shaun Lacie 3 Ti Max 6x80mm - [id number] Implanted:Qty: 1 on 03/10/2012 [place] [facility] [place]A: Spine Lumbar LEVON : SPINE [id number] / / 9 X 25 X 4 - 8 Avs Wedge Nose Cage Implanted:Qty: 1 on 03/10/2012 [place] [facility] [place]A: Spine Lumbar [id number] / / Stent Synergy Xd Mr 2.35k21ku - [id number] Implanted:Qty: 1 on 09/20/2020 [place] [facility] [facility] [place] [employer] Tech [id number] 04/18/2022 [id number] 220 / / [id number] Stent Synergy Xd Mr 2.42g21zt - [id number] Implanted:Qty: 1 on 09/20/2020 [place] [facility] [facility] [place] [employer] [id number] 04/25/2022 [id number] 220 / / [id number] Screw Locking 4.5mm 15mm - [id number] Implanted:Qty: 1 on 07/11/2022 by Sami Angelo DO [place] [facility] [place]: Shoulder [employer] 11/22/2025 108-4515 / / [id number] Bseplate Jasmeet Cmntlss W Scrw - [id number] Implanted:Qty: 1 on 07/11/2022 by Sami Angelo DO [place] [facility] [place]: Shoulder [employer] 03/24/2027 105-0029 / / [id number] Glenosphere Rev Thee W Scrw - [id number] Implanted:Qty: 1 on 07/11/2022 by Sami Angelo DO [place] [facility] [place]: Shoulder [employer] 04/24/2027 105-3610 / / [id number] Screw Locking 4.5mm 15mm - [id number] Implanted:Qty: 1 on 07/11/2022 by Sami Angelo DO [place] [facility] [place]: Shoulder [employer] 03/24/2027 108-4515 / / [id number] Screw Locking 4.5mm 20mm - [id number] Implanted:Qty: 1 on 07/11/2022 by Sami Angelo, at [place] [facility] [...] / [id number] Screw Locking 4.5mm 20mm - [id number] Implanted:Qty: 1 on 07/11/2022 by Sami Angelo [...] Pace Spouse Health Care Agent Care Teams Insurance Consultant Relationship Specialty Start Date End Date Keagan Sanchez MD [address] [place] [address] PCP - General Family Medicine 10/07/23 documented as of this encounter
--- OUTSIDE RECORDS SUMMARY | 2024-03-06 12:41 | External Medical Summary | Summary of Care ---
Author Name Unknown Organization [facility] Address [address] [facility] [place] [address] Phone [phone] Care Team Providers Care Cue Worker Name Role Phone Keagan Sanchez MD Primary Care Provider [phone] Reason for Visit * Reason Comments Medication Refill Encounter Details Date Type Department Care Team ([facility] Contact Info) Description 10/06/[address] [phone] Estela Canchola MD [address] [place] [address] DDD (degenerative disc disease), cervical Allergies Active Allergy Reactions Criticality Noted Date Comments Duloxetine Hcl Flushing,Nausea/vomi tin g High 10/20/2019 Erythromycin Base Rash 03/14/2004 Orlistat Low 03/31/2023 Other Reaction(s): GI UPSET Penicillins Rash 03/14/2004 Sulfa Antibiotics Rash 03/14/2004 documented as of this encounter (statuses as of 10/07/2023) Medications Medication Sig Dispensed Refills Start Date [...] 5 Active Torsemide 10 MG Oral Tablet (Demadex)Indicatio [...] needed for Anxiety (hyperventilatio n). 30 Tablet 09/12/2023 Active Baclofen 20 MG Oral Tablet TAKE ONE TABLET BY MOUTH FOUR TIMES A DAY (MORNING, NOON, EVENING AND BEDTIME) 360 Tablet 09/26/2023 Active Metoclopramide HCl 10 MG Oral Tablet (Reglan) TAKE ONE TABLET BY MOUTH THREE TIMES A DAY THIRTY MINUTES BEFORE MEALS 270 Tablet 09/26/2023 5 Active traMADol HCl 50 MG Oral Tablet (Ultram)Indication s:Postlaminectomy syndrome, lumbar Take 2 Tablets by mouth every 6 hours as needed for Pain, Moderate. 90 Tablet 10/02/2023 Active Gabapentin 800 MG Oral Tablet (Neurontin)Indicat ions:DDD (degenerative disc disease), cervical Take 1 Tablet by mouth in the morning and 1 Tablet at noon and 1 Tablet before bedtime. 270 Tablet 1 10/07/2023 Active Gabapentin 800 MG Oral Tablet (Neurontin)Indicat ions:DDD (degenerative disc disease), cervical TAKE ONE TABLET BY MOUTH THREE TIMES A DAY. DECREASE DOSE DIRECTED 270 Tablet 07/04/2023 4 Discontinue d(Refill) documented as of this encounter (statuses as of 10/07/2023) Active Problems Problem Noted Date Diagnosed Date [...] hypothyroidism 04/12/2021 Coronary artery disease invo lving [place] coronary artery of [place] heart without angina pectoris 09/27/2020 S/P angioplasty [...] as of this encounter (statuses as of 10/07/2023) Resolved Problems Problem Noted Date Diagnosed Date [...] as of this encounter (statuses as of 10/07/2023) Immunizations Name Administration Dates Next Due COVID-19 [...] encounter Miscellaneous Notes * Telephone Encounter - Mala Xavier PA-C - 10/07/2023 10:11 PM EDT Signed Prescriptions: Disp Refills Gabapentin 800 MG Oral Tablet (Neurontin) 270 Ta*1 Sig: Take 1 Tablet by mouth in the morning and 1 Tablet at noon and 1 Tablet before bedtime. Authorizing Provider: MALA XAVIER * Telephone Encounter - Mala Xavier PA-C - 10/07/2023 10:11 PM EDT Signed Prescriptions: Disp Refills Gabapentin 800 MG Oral Tablet (Neurontin) 270 Ta*1 Sig: Take 1 Tablet by mouth in the morning and 1 Tablet at noon and 1 Tablet before bedtime. Authorizing Provider: MALA XAVIER * Telephone Encounter - Janett Dougherty CPhT - 10/07/2023 4:11 PM EDT Did you pend patient's preferred pharmacy and medication before forwarding?yes Pharmacy: [facility] Pending Prescriptions: Disp Refills Gabapentin 800 MG Oral Tablet (Neurontin) 270 Ta*0 Sig: TAKE ONE TABLET BY MOUTH THREE TIMES A DAY. DECREASE DOSE DIRECTED Last Visit: 08/27/2023 (in office), Visit date not found (telemedicine) Next Visit: 12/22/2023 If no future appointments scheduled, and last appointment is greater than a year ago, please schedule patient for a follow-up appointment Last date the medication was ordered: 07/04/23 Is this request for a controlled substance?No [...] Labs: Lab Results Component Value Date/Time CREAT 0.6 08/25/2023 06:41 AM CREAT 1.0 02/26/2020 09:17 AM POTASSIUM 4.0 08/25/2023 06:41 AM POTASSIUM 3.9 02/26/2020 09:17 AM TSH 3.36 07/17/2023 09:07 AM TSH 2.74 10/20/2019 08:59 AM LDLCALC 40 08/24/2023 12:22 AM LDLCALC 120 10/20/2019 08:59 AM LDLDIRECT 63 09/10/2022 09:42 AM LDLDIRECT NOT APPLICABLE 10/20/2019 08:59 AM LDLDIRECT 171 (H) 05/16/2008 11:11 AM ALT 49 (H) 08/23/2023 11:30 PM ALT 32 10/20/2019 08:59 AM HGBA1C 6.0 (H) 07/17/2023 09:07 AM HGBA1C 5.2 06/23/2014 09:27 AM * Telephone Encounter - Alma Nixon - 10/07/2023 10:25 AM EDTPending Prescriptions: Disp Refills Gabapentin 800 MG Oral Tablet (Neurontin) 270 Ta*0 Sig: TAKE ONE TABLET BY MOUTH THREE TIMES A DAY. DECREASE DOSE DIRECTED documented in this encounter Plan of Treatment Upcoming Encounters Date Type Department Care Team (Late st Contact Info) Description 11/19/2023 10:00 AM EDT Office Visit [facility] [address] [facility] [place] [address] Anai Schultz PA-C [address] [facility] [place] [address] 12/22/2023 1:40 PM EDT Office Visit [facility] 68 [place] [phone] Keagan Sanchez MD [address] [place] [address] 08/09/2024 10:00 AM EDT Office Visit Orthopaedics Andrez Alejandre 16 [place] [phone] Sami Angelo DO 16 [place] [address] 10/07/2024 2:40 PM EDT Office Visit Dermatology [facility] 68 [place] [address] Alden Ann PA-C [address] [place] [address] Scheduled Procedures Name Priority Associated Diagnoses Date/Ti [...] D LEVEL ONCE IN A LIFETIME-USE SMARTSET# [id number] Completed 01/28/2022, 02/21/2015, 12/30/2011 RETIRED - COLONOSCOPY-EVERY [...] this encounter Medical Devices Implanted Type Area Nursery Supervisor Device Identifier Shelf Expiration Date Model / Serial / Lot Screw Jami Lacie 3 Ti Set - [id number] [place]ed:Qty: 6 [place] 03[place] [facility] [place] Spine Lumbar LEVON : SPINE [id number] / / Screw Lacie Pa Ti 6.5x50mm - [id number] Implanted:Qty: 4 on 03/10/2012 [place] [facility] [place]: Spine Lumbar LEVON : SPINE [id number] / / [place] Xia3 7.0 X 40mm Screws Implanted:Qty: 2 on 03/10/2012 [place] [facility] [place]: Spine Lumbar [id number] / / Shaun Lacie 3 Ti 6x70mm - [id number] Implanted:Qty: 1 on 03/10/2012 [place] [facility] [place]A: Spine Lumbar LEVON : SPINE [id number] / / Shaun Lacie 3 Ti Max 6x80mm - [id number] Implanted:Qty: 1 on 03/10/2012 [place] [facility] [place]A: Spine Lumbar LEVON : SPINE [id number] / / 9 X 25 X 4 - 8 Avs Wedge Nose Cage Implanted:Qty: 1 on 03/10/2012 [place] [facility] [place]A: Spine Lumbar [id number] / / Stent Synergy Xd Mr 2.10i78wi - [id number] Implanted:Qty: 1 on 09/20/2020 [place] [facility] [facility] [place] [employer] Tech [id number] 04/18/2022 [id number] 220 / / [id number] Stent Synergy Xd Mr 2.66o86zf - [id number] Implanted:Qty: 1 on 09/20/2020 [place] [facility] [place] [employer] Tech [id number] 04/25/2022 [id number] 220 / / [id number] Screw Locking 4.5mm 15mm - [id number] Implanted:Qty: 1 on 07/11/2022 by Sami [place] [facility] [place] Shoulder [employer] 11/22/2025 108-4515 / / [id number] Bseplate Jasmeet Cmntlss W Scrw - [id number] Implanted:Qty: 1 on 07/11/2022 by Sami [place] [facility] [place] Shoulder [employer] 03/24/2027 105-0029 / / [id number] Glen[employer] Rev Thee W Scrw - [id number] Implanted:Qty: 1 on 07/11/2022 by Sami [place] [facility] [place]: Shoulder [employer] 04/24/2027 105-3610 / / [id number] Screw Locking 4.5mm 15mm - [id number] Implanted:Qty: 1 on 07/11/2022 by Sami [place] DO [place] [facility] [place]: Shoulder [employer] 03/24/2027 108-4515 / / [id number] Screw Locking 4.5mm 20mm - [id number] Implanted:Qty: 1 on 07/11/2022 by Sami Angelo [...] / [id number] Screw Locking 4.5mm 20mm - [id number] Implanted:Qty: 1 on 07/11/2022 by Sami Angelo, [place] [facility] [place] Shoulder [employer] 03/24/2027 108-4520 / / [id number] documented as of this encounter Visit Diagnoses Diagnosis DDD (degenerative disc disease), cervical Degeneration of cervical intervertebral disc documented in this encounter Advance Directives * [...] Pace Spouse Health Care Agent Care Teams Cue Worker Relationship Specialty Start Date End Date Keagan Sanchez MD [address] [place] [address] PCP - General Family Medicine 10/07/23 documented as of this encounter
--- OUTSIDE RECORDS SUMMARY | 2024-03-06 12:41 | External Medical Summary | Summary of Care ---
Author Name Unknown Organization [facility] Address [address] [facility] [place] [address] Phone [phone] Care Team Providers Care Call Or Contact Centre Team Leader Name Role Phone Keagan Jalloh MD Primary Care Provider [phone] Reason for Visit * Reason Comments Medication Refill Encounter Details Date Type Department Care Team ([facility] st Contact Info) Description 09/25/[address] [address] Estela Canchola MD [address] [place] [address] Allergies Active Allergy Reactions Criticality Noted Date Comments Duloxetine Hcl Flushing,Nausea/vomi tin g High 10/20/2019 Erythromycin Base Rash 03/14/2004 Orlistat Low 03/31/2023 Other Reaction(s): GI UPSET Penicillins Rash 03/14/2004 Sulfa Antibiotics Rash 03/14/2004 documented as of this encounter (statuses as of 09/26/2023) Medications Medication Sig Dispensed Refills Start Date [...] MEDICATIONS 90 Tablet 1 06/03/2023 5 Active Gabapentin 800 MG Oral Tablet (Neurontin)Indicat ions:DDD (degenerative disc disease), cervical TAKE ONE TABLET BY MOUTH THREE TIMES A DAY. DECREASE DOSE DIRECTED 270 Tablet 07/04/2023 5 Active Sucralfate 1 GM Oral Tablet [...] Anxiety (hyperventilatio n). 30 Tablet 09/12/2023 Active traMADol HCl 50 MG Oral Tablet (Ultram)Indication s:Postlaminectomy syndrome, lumbar Take 2 Tablets by mouth every 6 hours as needed for Pain, Moderate. 90 Tablet 09/12/2023 Active Baclofen 20 MG Oral Tablet TAKE ONE TABLET BY MOUTH FOUR TIMES A DAY (MORNING, NOON, EVENING AND BEDTIME) 360 Tablet 09/26/2023 Active Metoclopramide HCl 10 MG Oral Tablet (Reglan) TAKE ONE TABLET BY MOUTH THREE TIMES A DAY THIRTY MINUTES BEFORE MEALS 270 Tablet 06/24/2023 4 Discontinue d(Refill) Baclofen 20 MG Oral Tablet TAKE ONE TABLET BY MOUTH FOUR TIMES A DAY (MORNING, NOON, EVENING AND BEDTIME) 360 Tablet 07/04/2023 4 Discontinue d(Refill) documented as of this encounter (statuses as of 09/26/2023) Active Problems Problem Noted Date Diagnosed Date [...] hypothyroidism 04/12/2021 Coronary artery disease invo lving [place] coronary artery of [place] heart without angina pectoris 09/27/2020 S/P angioplasty [...] as of this encounter (statuses as of 09/26/2023) Resolved Problems Problem Noted Date Diagnosed Date [...] as of this encounter (statuses as of 09/26/2023) Immunizations Name Administration Dates Next Due COVID-19 [...] Telephone Encounter - Keagan Jalloh MD - 09/26/2023 1:23 PM EDTSigned Prescriptions: Disp Refills Baclofen 20 MG Oral Tablet 360 Ta*0 Sig: TAKE ONE TABLET BY MOUTH FOUR TIMES A DAY (MORNING, NOON, EVENING AND BEDTIME) Authorizing Provider: KEAGAN JALLOH * Telephone Encounter - Fiordaliza Sheridan LPN - 09/26/2023 11:23 AM EDTPending Prescriptions: Disp Refills Baclofen 20 MG Oral Tablet 360 Ta*0 Sig: TAKE ONE TABLET BY MOUTH FOUR TIMES A DAY (MORNING, NOON, EVENING AND BEDTIME) * Telephone Encounter - Fiordaliza Sheridan LPN - 09/26/2023 11:22 AM EDT 08/27/2023 (in office), Visit date not found (telemedicine) Next appt: 12/22/2023 Pending Prescriptions: Disp Refills Baclofen 20 MG Oral Tablet 360 Ta*0 Sig: TAKE ONE TABLET BY MOUTH FOUR TIMES A DAY (MORNING, NOON, EVENING AND BEDTIME) * Telephone Encounter - Alma Nixon - 09/25/2023 10:23 PM EDTPending Prescriptions: Disp Refills Baclofen 20 MG Oral Tablet 360 Ta*0 Sig: TAKE ONE TABLET BY MOUTH FOUR TIMES A DAY (MORNING, NOON, EVENING AND BEDTIME) documented in this encounter Plan of Treatment Upcoming Encounters Date Type Department Care Team ([facility] Contact Info) Description 10/02/2023 2:40 PM EDT Office Visit Dermatology [facility] [address] [place] [phone] Alden Ann PA-C [address] [place] [address] 10/03/2023 8:30 AM EDT Appointment Cardiac Studies [facility] [address] [place] [address] 11/19/2023 10:00 AM EDT Office Visit Nutrition & Weight Management, [facility] [address] [facility] [place] [address] Anai Schultz PA-C [address] [facility] [place] [address] 12/22/2023 1:40 PM EDT Office Visit Family Practice [facility] [address] [place] [phone] Keagan Jalloh MD [address] [place] [address] 08/09/2024 10:00 AM EDT Office Visit Orthopaedics Andrez Alejandre [address] [place] [address] Sami Angelo DO [address] [place] [address] Scheduled Procedures Name Priority Associated Diagnoses Date/Ti [...] D LEVEL ONCE IN A LIFETIME-USE SMARTSET# 20003 Completed 01/28/2022, 02/21/2015, 12/30/2011 RETIRED - COLONOSCOPY-EVERY [...] this encounter Medical Devices Implanted Type Area Environmental Services Floor Tech Device Identifier Shelf Expiration Date Model / Serial / Lot Screw Jami Lacie 3 Ti Set - [id number] Implanted:Qty: 6 on 03/10/2012 at [place] [facility] [place] Bilateral: Spine Lumbar LEVON : SPINE [id number] / / Screw Lacie Pa Ti 6.5x50mm - [id number] Implanted:Qty: 4 on 03/10/2012 at [place] [facility] [place] Bilateral: Spine Lumbar LEVON : SPINE [id number] / / [place] Xia3 7.0 X 40mm Screws Implanted:Qty: 2 on 03/10/2012 at [place] [facility] [place] Bilateral: Spine Lumbar [id number] / / Shaun Lacie 3 Ti 6x70mm - [id number] Implanted:Qty: 1 on 03/10/2012 at [place] [facility] [place] N/A: Spine Lumbar LEVON : SPINE [id number] / / Shaun Lacie 3 Ti Max 6x80mm - [id number] Implanted:Qty: 1 on 03/10/2012 at [place] [facility] [place] N/A: Spine Lumbar LEVON : SPINE [id number] / / 9 X 25 X 4 - 8 Avs Wedge Nose Cage Implanted:Qty: 1 on 03/10/2012 at [place] [facility] [place] N/A: Spine Lumbar [id number] / / Stent Synergy Xd Mr 2.43x82qy - [id number] Implanted:Qty: 1 on 09/20/2020 at [facility] [employer] [id number] 04/18/2022 [id number] 220 / / [id number] Stent Synergy Xd Mr 2.93b58wa - [id number] Implanted:Qty: 1 on 09/20/2020 at [facility] [place] [employer] [id number] 04/25/2022 [id number] 220 / / [id number] Screw Locking 4.5mm 15mm - [id number] Implanted:Qty: 1 on 07/11/2022 by Sami Angelo DO at [place] [facility] Right: Shoulder [employer] 11/22/2025 108-4515 / / [id number] Bseplate Jasmeet Cmntlss W Scrw - [id number] Implanted:Qty: 1 on 07/11/2022 by Sami Angelo DO at [place] [facility] [place] Right: Shoulder [employer] 03/24/2027 105-0029 / / [id number] [employer] Rev Thee W Scrw - [id number] Implanted:Qty: 1 on 07/11/2022 by Sami Angelo DO at [place] [facility] Right: Shoulder [employer] 04/24/2027 105-3610 / / [id number] Screw Locking 4.5mm 15mm - [id number] Implanted:Qty: 1 on 07/11/2022 by Sami Angelo DO at [place] [facility] Right: Shoulder [employer] 03/24/2027 108-4515 / / [id number] Screw Locking 4.5mm 20mm - [id number] Implanted:Qty: 1 on 07/11/2022 by Sami Angelo DO at [place] [facility] [place] Right: Shoulder [employer] 03/24/2027 108-4520 / / [id number] [place] Ii Stem Ta6v Size 12 Cementless Implanted:Qty: 1 on 07/11/2022 by Sami Angelo DO at [place] [facility] Right: Shoulder [employer] 10/22/2026 311-0212 / / [id number] Cortical Screw Ta6v, 5mm, L. 24mm Implanted:Qty: 1 on 07/11/2022 by Sami Angelo DO at [place] [facility] Right: Shoulder [employer] 09/22/2023 107-4524 / / [id number] Humeral Cup 135/145 Degree, Standard, 36/+6 Implanted:Qty: 1 on 07/11/2022 by Sami Angelo, DO at [place] [facility] Right: Shoulder 02/21/2025 313-0706 / / [id number] Screw Locking 4.5mm 20mm - [id number] Implanted:Qty: 1 on 07/11/2022 by Sami Angelo, DO at [place] [facility] Right: Shoulder [employer] 03/24/2027 108-4520 [...] Agents on File Name Relationship Healthcare Agent [facility] p Communication Donny Wecristysloan Spouse Health Care Agent Care Teams Call Or Contact Centre Team Leader Relationship Specialty Start Date End Date Keagan Jalloh MD [address] [place] [phone] PCP - General Family Medicine 06/04/18 documented as of this encounter
--- OUTSIDE RECORDS SUMMARY | 2024-03-06 12:41 | External Medical Summary | Summary of Care ---
Author Name Unknown Organization [facility] Address [address] [facility] [place] [address] Phone [phone] Care Team Providers Care Basin Cleaner Name Role Phone Keagan Sanchez MD Primary Care Provider [phone] Reason for Referral * Precert (Within 10 days (routine)) - Authorized Specialty Diagnoses / Procedures Referred By Contac t Referred To Contact Cardiac Studies Diagnoses Ascending aorta enlargement (HCC) Procedures ECHO, COMPLETE (2D), TRANS-THORACIC Keagan Sanchez MD [address] [place] [address] Referral ID Status Reason Start Date Expiration Date V isits Requested Visits Authorized [id number] Authorized Precert 10/06/2023 999 999 Reason for Visit * Reason Onset Date Comments Test Results 10/06/2023 LMOM 10/08/23 Encounter Details Date Type Department Care Team ([facility] st Contact Info) Description 10/06/2023 Telephone Family Practice [address] [phone] Keagan Sanchez MD [address] [place] [phone] Test Results (LMOM 10/08/23) Allergies Active [...] hypothyroidism 04/12/2021 Coronary artery disease invo lving [place] coronary artery of [place] heart without angina pectoris 09/27/2020 S/P angioplasty [...] encounter Miscellaneous Notes * Telephone Encounter - Zhane Brice CCMA [...] patient to relay the results to her [phone] * Telephone Encounter - Keagan Sanchez MD [...] & Weight Management, [facility] [address] [place] [address] Anai Schultz PA-C [address] [place] [address] 12/22/2023 1:40 PM EDT Office Visit Family Practice [facility] [address] [place] [phone] Keagan Sanchez MD [address] [place] [address] 08/09/2024 10:00 AM EDT Office Visit Orthopaedics [facility] [address] [place] [address] Sami Angelo DO 16 [place] [address] 10/07/2024 2:40 PM EDT Office Visit Dermatology [facility] [address] [place] [phone] Alden Ann PA-C [address] [place], [place] [phone] Scheduled Orders Name Type Priority Associated Diagnoses [...] 12/09/2011, Additional history exists Mammogram 04/24/2024 04/24/2023, 0 03/2023, 04/24/2023, Additional history exists HbA1c 07/16/2024 07/17/2023, 01/23, 09/20/2020, Additional history exists TSH 07/16/2024 07/17/2023, 08/0 11/2022, 09/10/2022, Additional history exists GFR 08/24/2024 08/25/2023, 060 03/2023, 07/20/2023, Additional history exists DTaP,Tdap,and Td Vaccines (3 - Td or Tdap) 10/10/2026 10/10/2016, 10/26/2005 Colonoscopy 04/18/2027 04/18/2022, 03/25, 08/10/2013, Additional history exists Colorectal Cancer Screening 04/18/2027 VITAMIN D LEVEL ONCE IN A LIFETIME-USE SMARTSET# 11865 Completed 01/28/2022, 02/21/2015, 12/30/2011 RETIRED - COLONOSCOPY-EVERY [...] this encounter Medical Devices Implanted Type Area Favor Maker Device Identifier Shelf Expiration Date Model / Serial / Lot Screw Jami Lacie 3 Ti Set - [id number] Implanted:Qty: 6 on 03/10/2012 at OR [facility] Bilateral: Spine Lumbar LEVON : SPINE [id number] / / Screw Lacie Pa Ti 6.5x50mm - [id number] Implanted:Qty: 4 on 03/10/2012 at OR [facility] Bilateral: Spine Lumbar LEVON : SPINE [id number] / / Spur Xia3 7.0 X 40mm Screws Implanted:Qty: 2 on 03/10/2012 at [facility] Bilateral: Spine Lumbar [id number] / / Shaun Lacie 3 Ti 6x70mm - [id number] Implanted:Qty: 1 on 03/10/2012 at OR [facility] N/A: Spine Lumbar LEVON : SPINE [id number] / / Shaun Lacie 3 Ti Max 6x80mm - [id number] Implanted:Qty: 1 on 03/10/2012 at OR [facility] N/A: Spine Lumbar LEVON : SPINE [id number] / / 9 X 25 X 4 - 8 Avs Wedge Nose Cage Implanted:Qty: 1 on 03/10/2012 at OR [facility] N/A: Spine Lumbar [id number] / / Stent Synergy Xd Mr 2.69y49ja - [id number] Implanted:Qty: 1 on 09/20/2020 at [facility] [employer] [id number] 04/18/2022 [id number] 220 / / [id number] Stent Synergy Xd Mr 2.46m82ec - [id number] Implanted:Qty: 1 on 09/20/2020 at [facility] [employer] [id number] 04/25/2022 [id number] 220 / / [id number] Screw Locking 4.5mm 15mm - [id number] Implanted:Qty: 1 on 07/11/2022 by Sami Angelo DO at [facility] Right: Shoulder [employer] 11/22/2025 108-4515 / / [id number] Bseplate Jasmeet Cmntlss W Scrw - [id number] Implanted:Qty: 1 on 07/11/2022 by Sami Angelo DO at [facility] Right: Shoulder [employer] 03/24/2027 105-0029 / / [id number] Glenosphere Rev Thee W Scrw - [id number] Implanted:Qty: 1 on 07/11/2022 by Sami Angelo DO at [facility] Right: Shoulder [employer] 04/24/2027 105-3610 / / [id number] Screw Locking 4.5mm 15mm - [id number] Implanted:Qty: 1 on 07/11/2022 by Sami Angelo DO at OR [facility] Right: Shoulder [employer] 03/24/2027 108-4515 / / [id number] Screw Locking 4.5mm 20mm - [id number] Implanted:Qty: 1 on 07/11/2022 by Sami Angelo [...] / [id number] Screw Locking 4.5mm 20mm - [id number] Implanted:Qty: 1 on 07/11/2022 by Sami Angelo [...] Pace Spouse Health Care Agent Care Teams Basin Cleaner Relationship Specialty Start Date End Date Keagan Sanchez MD [address] [place] [address] PCP - General Family Medicine 10/07/23 documented as of this encounter
--- OUTSIDE RECORDS SUMMARY | 2024-03-06 12:41 | External Medical Summary | Summary of Care ---
Author Name Unknown Organization [facility] Address [address] [facility] [place] [address] Phone [phone] Care Team Providers Care Floorworker Distributor Name Role Phone Keagan Sanchez MD Primary Care Provider [phone] Encounter Details Date Type Department Care Team (Latest Contact Info) Description 10/02/2023 2:52 PM EDT - 10/02/2023 11:59 PM EDT Hospital Encounter Radiology Film File [address] [place] [address] Arrived Discharge Disposition: Home - Self Care Allergies Active Allergy Reactions Criticality Noted Date Comments Duloxetine Hcl Flushing,Nausea/vomi tin g High 10/20/2019 Erythromycin Base Rash 03/14/2004 Orlistat Low 03/31/2023 Other Reaction(s): GI UPSET Penicillins Rash 03/14/2004 Sulfa Antibiotics Rash 03/14/2004 documented as of this encounter (statuses as of 10/03/2023) Medications Medication Sig Dispensed Refills Start Date [...] MEDICATIONS 90 Tablet 1 06/03/2023 06/02/2024 Active Gabapentin 800 MG Oral Tablet (Neurontin)Indicati ons:DDD (degenerative disc disease), cervical TAKE ONE TABLET BY MOUTH THREE TIMES A DAY. DECREASE DOSE DIRECTED 270 Tablet 07/04/2023 07/03/2024 Active Sucralfate 1 GM Oral Tablet (Carafate) [...] as of this encounter (statuses as of 10/03/2023) Active Problems Problem Noted Date Diagnosed Date [...] 04/12/2021 Coronary artery disease invo lving [place] coronary artery of [place] heart without angina pectoris 09/27/2020 S/P angioplasty [...] as of this encounter (statuses as of 10/03/2023) Resolved Problems Problem Noted Date Diagnosed Date [...] as of this encounter (statuses as of 10/03/2023) Immunizations Name Administration Dates Next Due COVID-19 [...] Office Visit Nutrition & Weight Management, [facility] [address] [address] Anai Schultz PA-C [address] [place] [address] [address] 12/22/2023 1:40 PM EDT Office Visit Family Practice [address] [phone] Keagan Sanchez MD [address] [place] [address] 08/09/2024 10:00 AM EDT Office Visit Orthopaedics [facility] [address] [place] [address] Sami Angelo DO 16 [place] [address] 10/07/2024 2:40 PM EDT Office Visit Dermatology [address] [phone] Alden Ann PA-C [address] [place] [address] Scheduled Procedures Name Priority Associated Diagnoses Date/Ti [...] D LEVEL ONCE IN A LIFETIME-USE SMARTSET# 17936 Completed 01/28/2022, 02/21/2015, 12/30/2011 RETIRED - COLONOSCOPY-EVERY [...] this encounter Medical Devices Implanted Type Area Life Cycle Assessment Analyst Device Identifier Shelf Expiration Date Model / Serial / Lot Screw Jami Lacie 3 Ti Set - [id number] Implanted:Qty: 6 on 03/10/2012 at OR [facility] Bilateral: Spine Lumbar LEVON : SPINE [id number] / / Screw Lacie Pa Ti 6.5x50mm - [id number] Implanted:Qty: 4 on 03/10/2012 at OR [facility] Bilateral: Spine Lumbar LEVON : SPINE [id number] / / Levon Xia3 7.0 X 40mm Screws Implanted:Qty: 2 on 03/10/2012 at OR [facility] Bilateral: Spine Lumbar [id number] / / Shaun Lacie 3 Ti 6x70mm - [id number] Implanted:Qty: 1 on 03/10/2012 at OR [facility] N/A: Spine Lumbar LEVON : SPINE [id number] / / Shaun Lacie 3 Ti Max 6x80mm - [id number] Implanted:Qty: 1 on 03/10/2012 at OR [facility] N/A: Spine Lumbar LEVON : SPINE [id number] / / 9 X 25 X 4 - 8 Avs Wedge Nose Cage Implanted:Qty: 1 on 03/10/2012 at OR [facility] N/A: Spine Lumbar [id number] / / Stent Synergy Xd Mr 2.12f16sn - [id number] Implanted:Qty: 1 on 09/20/2020 at [facility] [employer] [id number] 04/18/2022 [id number] 220 / / [id number] Stent Synergy Xd Mr 2.95o51wi - [id number] Implanted:Qty: 1 on 09/20/2020 at [facility] [employer] [id number] 04/25/2022 [id number] 220 / / [id number] Screw Locking 4.5mm 15mm - [id number] Implanted:Qty: 1 on 07/11/2022 by Sami Angelo DO at OR [facility] Right: Shoulder [employer] 11/22/2025 108-4515 / / [id number] Bseplate Jasmeet Cmntlss W Scrw - [id number] Implanted:Qty: 1 on 07/11/2022 by Sami Angelo DO at OR [facility] Right: Shoulder [employer] 03/24/2027 105-0029 / / [id number] [employer] Rev Thee W Scrw - [id number] Implanted:Qty: 1 on 07/11/2022 by Sami Angelo DO at OR [facility] Right: Shoulder [employer] 04/24/2027 105-3610 / / [id number] Screw Locking 4.5mm 15mm - [id number] Implanted:Qty: 1 on 07/11/2022 by Sami Angelo DO at OR [facility] Right: Shoulder [employer] 03/24/2027 108-4515 / / [id number] Screw Locking 4.5mm 20mm - [id number] Implanted:Qty: 1 on 07/11/2022 by Sami Angelo [...] / [id number] Screw Locking 4.5mm 20mm - [id number] Implanted:Qty: 1 on 07/11/2022 by Sami Angelo DO at OR [facility] Right: Shoulder [employer] 03/24/2027 108-4520 / / [id number] documented as of this encounter Procedures Procedure Name Priority Date/Time Associated Diagnosis Comments DERM EXAM - DERM (IMAGES ONLY, NO REPORT) Routine 10/02/2023 2:52 PM EDT Screening for malignant neoplasm of skin documented in this encounter Results * DERM EXAM - DERM (IMAGES ONLY, NO REPORT) (10/02/2023 2:52 PM EDT) Narrative Scheduling, Silent - 10/02/2023 2:52 PM EDT This is an imaging study not interpreted or resulted by a [facility] radiologist. Alden Ann PA-C RADIOLOGY (RAD [facility]) documented in this encounter Advance Directives * [...] Pace Spouse Health Care Agent Care Teams Floorworker Distributor Relationship Specialty Start Date End Date Keagan Sanchez MD [address] [place] [phone] PCP - General Family Medicine 06/04/18 documented as of this encounter
--- OUTSIDE RECORDS SUMMARY | 2024-03-06 12:41 | External Medical Summary | Summary of Care ---
Author Name Unknown Organization [facility] Address [address] [facility] [place] [address] Phone [phone] Care Team Providers Care Utility Aircrewman Name Role Phone Keagan Jalloh MD Primary Care Provider [phone] Reason for Visit * Reason Comments Skin Check Annual skin check. N o areas of concern. Encounter Details Date Type Department Care Team ([facility] Contact Info) Description 10/02/2023 2:40 PM EDT Office Visit Dermatology [address] [phone] Alden Ann PA-C [address] [place] [address] Screening for malignant neoplasm of skin*; Skin neoplasm; Seborrheic keratosis; Stucco keratoses; Multiple nevi Allergies Active Allergy Reactions Criticality Noted Date Comments Duloxetine Hcl Flushing,Nausea/vomi tin g High 10/20/2019 Erythromycin Base Rash 03/14/2004 Orlistat Low 03/31/2023 Other Reaction(s): GI UPSET Penicillins Rash 03/14/2004 Sulfa Antibiotics Rash 03/14/2004 documented as of this encounter (statuses as of 10/02/2023) Medications Medication Sig Dispensed Refills Start Date [...] Anxiety (hyperventilation ). 30 Tablet 09/12/2023 Active traMADol HCl 50 [...] BEFORE MEALS 270 Tablet 09/26/2023 09/25/2024 Active documented as of this encounter (statuses as of 10/02/2023) Active Problems Problem Noted Date Diagnosed Date [...] 04/12/2021 Coronary artery disease invo lving [place] coronary artery of [place] heart without angina pectoris 09/27/2020 S/P angioplasty [...] as of this encounter (statuses as of 10/02/2023) Resolved Problems Problem Noted Date Diagnosed Date [...] as of this encounter (statuses as of 10/02/2023) Immunizations Name Administration Dates Next Due COVID-19 [...] as of this encounter Progress Notes * Alden Ann PA-C - 10/02/2023 2:51 PM EDT SUBJECTIVE: History of Present Illness: Shalini Pace is a 62 year old female seen today for follow up skin check. Patient has a new/bothersome lesion on the L upper ear she would like checked. Rubbing on her glasses. 10/01/2022 (in office) REVIEW OF SYSTEMS: SKIN: No other new or changing moles. HEME/LYMPH: No new or enlarging lumps or bumps. CONSTITUTIONAL: No nausea, vomiting, fevers, chills, diarrhea. No recent unintended weight loss, night sweats, appetite or malaise. SKIN CANCER HX: none MEDICA TIONS: Current Outpatient Medications Medication Sig Dispense Refill [...] DAY OR OTHER MEDICATIONS 90 Tablet 1 Gabapentin 800 MG Oral Tablet (Neurontin) TAKE ONE TABLET BY MOUTH THREE TIMES A DAY. DECREASE DOSEAS DIRECTED 270 Tablet 0 Sucralfate 1 GM Oral Tablet (Carafate) TAKE [...] needed for Anxiety (hyperventilation). 30 Tablet 0 traMADol HCl 50 MG Oral Tablet (Ultram) Take 2 Tablets by mouth every 6 hours as needed for Pain, Moderate. 90 Tablet 0 Baclofen 20 MG Oral Tablet TAKE ONE TABLET BY MOUTH FOUR TIMES A DAY (MORNING, NOON, EVENING AND BEDTIME) 360 Tablet 0 Metoclopramide HCl 10 MG Oral Tablet (Reglan) TAKE ONE TABLET BY MOUTH THREE TIMES A DAY THIRTY MINUTES BEFORE MEALS 270 Tablet 0 No current facility-administered medications for this visit. ALLERG IES: Duloxetine hcl, Erythromycin base, Penicillins, Sulfa antibiotics, and Orlistat OBJECT KELVIN: GEN: Healthy, alert, no distress, appears oriented, pleasant, and cooperative. SKIN: Detailed exam of hair, face including lids and lips, neck, chest, abdomen, back, bilateral upper ext. (arm, hand, fingers), and bilateral lower ext. (leg, foot, toes) completed and are normal except: A. L helix with a firm white papule B. Chest/trunk/arms/legs with scattered brown macules/patches and waxy papules ASSESS MENT/PLAN: A. Favor nevus v adnexal Tangential biopsy of the lesion noted above to establish and confirm diagnosis. The procedure, risks, benefits, alternatives and expected outcomes were discussed with the patient and consent was obtained. Time out called. Patient identified, procedure verified, site identified and verified. Patientand staff present in agreement. Area prepped with alcohol and anesthetized with using 0.5% lidocaine with epinephrine at 1:200,000 concentration. Biopsy of lesion performed. 20% AlCl and bandaging applied. Specimen sent to pathology. Patient instructed in routine post-op care. B. Seborrheic/stucco keratoses/LCA and benign appearing nevi- continue to appear stable. Reassurance provided and no treatment recommended for benign, stable, and asymptomatic growths. Encouraged to call if changing/becoming symptomatic -recommended periodic skin exams for new or changing lesions with instructions to contact us in such circumstances for re-evaluation. These changes include rapid enlargement, changes in color or shape or symptoms, bleeding, or other concerns. Use sun protection Follow-up: 1 year or sooner PRN Patient with her today. Photo(s) taken, pt verbally consented to having photo(s) taken. Contact patient via cell phone Ok to leave results on message: Yes Patient Phone Numbers Applicable photos (if any) and chart reviewed by Dr. Delbert New Presumed diagnoses, expected natural histories, and management options discussed with the patient at length. Questions were addressed and anticipatory guidance provided. They were instructed to contact me if additional questions, concerns, or problems develop in the interim. -There were no barriers to learning and no other pain was related to today's visit. The patient and/or person accompanying patient demonstrates understanding of the visit and treatment. Araseli Ann PA-C 10/02/2023 2:51 PM Ref: SELF[[id number]] NO STREET ADDRESS AVAILABLE None (office) None (fax) PCP: KEAGAN JALLOH [address] [place] [address] documented in this encounter Nursing Notes * Mala Romero LPN - 10/02/2023 2:47 PM EDT Patient identified by name and date. Chief Complaint Patient presents with Skin Check Annual skin check. No areas of concern. documented in this encounter Plan of Treatment Upcoming Encounters Date Type Department Care Team (Late st Contact Info) Description 10/03/2023 8:30 AM EDT Appointment Cardiac Studies 1st Fl, [facility] [address] [place] [address] 11/19/2023 10:00 AM EDT Office Visit Nutrition & Weight Management, [facility] [address] [place] [address] Anai Schultz PA-C [address] [place] [address] 12/22/2023 1:40 PM EDT Office Visit Family [address] [phone] Keagan Jalloh MD [address] [place] [address] 08/09/2024 10:00 AM EDT Office [facility] [address] [place] [phone] Sami Angelo DO [address] [place] [address] 10/07/2024 2:40 PM EDT Office Visit Dermatology [facility] [address] [place] [phone] Alden Ann PA-C [address] [place] [address] Pending Results Name Type Priority Associated Diagnoses Date /Time SURGICAL PATHOLOGY Pathology Routine Screening for malignant neoplasm of skin Skin neoplasm Seborrheic keratosis Stucco keratoses Multiple nevi 10/02/2023 3:22 PM EDT Scheduled Procedures Name Priority Associated [...] D LEVEL ONCE IN A LIFETIME-USE SMARTSET# [id number] Completed 01/28/2022, 02/21/2015, 12/30/2011 RETIRED - COLONOSCOPY-EVERY [...] this encounter Medical Devices Implanted Type Area Regional Refrigerated Cdl Truck Driver Device Identifier Shelf Expiration Date Model / Serial / Lot Screw Jami Lacie 3 Ti Set - [id number] [place]planted:Qty: 6 on 03[place]10/[place] [facility] [place]ilateral: Spine Lumbar LEVON : SPINE [id number] / / Screw Lacie Pa Ti 6.5x50mm - [id number] Implanted:Qty: 4 on 03/10/2012 at [facility] Bilateral: Spine Lumbar LEVON : SPINE [id number] / / Butler Xia3 7.0 X 40mm Screws Implanted:Qty: 2 on 03/10/2012 [place] [facility] Bilateral: Spine Lumbar [id number] / / Shaun Lacie 3 Ti 6x70mm - [id number] Implanted:Qty: 1 on 03/10/2012 [place] [facility] N/A: Spine Lumbar LEVON : SPINE [id number] / / Shaun Lacie 3 Ti Max 6x80mm - [id number] Implanted:Qty: 1 on 03/10/2012 [place] [facility] N/A: Spine Lumbar LEVON : SPINE [id number] / / 9 X 25 X 4 - 8 Avs Wedge Nose Cage Implanted:Qty: 1 on 03/10/2012 [place] [facility] N/A: Spine Lumbar [id number] / / Stent Synergy Xd Mr 2.08n25jr - [id number] Implanted:Qty: 1 on 09/20/2020 at [facility] [employer] [id number] 04/18/2022 [id number] 220 / / [id number] Stent Synergy Xd Mr 2.89h22hc - [id number] Implanted:Qty: 1 on 09/20/2020 [place] [facility] [employer] [id number] 04/25/2022 [id number] 220 / / [id number] Screw Locking 4.5mm 15mm - [id number] Implanted:Qty: 1 on 07/11/2022 by Sami Angelo DO [place] [facility] Right: Shoulder [employer] 11/22/2025 108-4515 / / [id number] Bseplate Jasmeet Cmntlss W Scrw - [id number] Implanted:Qty: 1 on 07/11/2022 by Sami Angelo DO [place] [facility] Right: Shoulder [employer] 03/24/2027 105-0029 / / [id number] [employer] Rev Thee W Scrw - [id number] Implanted:Qty: 1 on 07/11/2022 by Sami Angelo DO [place] [facility] Right: Shoulder [employer] 04/24/2027 105-3610 / / [id number] Screw Locking 4.5mm 15mm - [id number] Implanted:Qty: 1 on 07/11/2022 by Sami Angelo DO [place] [facility] Right: Shoulder [employer] 03/24/2027 108-4515 / / [id number] Screw Locking 4.5mm 20mm - [id number] Implanted:Qty: 1 on 07/11/2022 by Sami Angelo DO [place] [facility] Right: Shoulder [employer] 03/24/2027 108-4520 / / [id number] Humelock Ii Stem Ta6v Size 12 Cementless Implanted:Qty: 1 on 07/11/2022 by Sami Angelo DO [place] [facility] Right: Shoulder [employer] 10/22/2026 311-0212 / / [id number] Cortical Screw Ta6v, 5mm, L. 24mm Implanted:Qty: 1 on 07/11/2022 by Sami Angelo DO [place] [facility] Right: Shoulder [employer] 09/22/2023 107-4524 / / [id number] Humeral Cup 135/145 Degree, Standard, 36/+6 Implanted:Qty: 1 on 07/11/2022 by Sami Angelo DO [place] [facility] Right: Shoulder 02/21/2025 313-0706 / / [id number] Screw Locking 4.5mm 20mm - [id number] Implanted:Qty: 1 on 07/11/2022 by Sami Angelo DO [place] [facility] Right: Shoulder [employer] 03/24/2027 108-4520 [...] study not interpreted or resulted by a [employer] or [employer] contracted radiologist. Alden Ann PA-C RADIOLOGY (RAD [facility]) documented in this encounter Visit Diagnoses Diagnosis Screening for malignant neoplasm of skin- Primary Screening for malignant neoplasm of the skin Skin neoplasm Neoplasm of unspecified nature of bone, soft tissue, and skin Seborrheic keratosis Other seborrheic keratosis Stucco keratoses Multiple nevi Benign neoplasm of skin, site unspecified documented in this encounter Advance Directives * [...] Pace Spouse Health Care Agent Care Teams Utility Aircrewman Relationship Specialty Start Date End Date Keagan Jalloh MD [address] [place] [address] PCP - General Family Medicine 06/04/18 documented as of this encounter
--- OUTSIDE RECORDS SUMMARY | 2024-03-06 12:41 | External Medical Summary | Summary of Care ---
Author Name Unknown Organization [facility] Address [address] [facility] [place] [address] Phone [phone] Care Team Providers Care Glass Mold Repairer Name Role Phone Keagan Sanchez MD Primary Care Provider [phone] Reason for Referral * Precert (Within 10 days (routine)) - Authorized Specialty Diagnoses / Procedures Referred By Contac t Referred To Contact Cardiac Studies Diagnoses Ascending aorta enlargement (HCC) Procedures ECHO, COMPLETE (2D), TRANS-THORACIC Keagan Sanchez MD [address] [place] [address] Referral ID Status Reason Start Date Expiration Date V isits Requested Visits Authorized [id number] Authorized Precert 10/06/2023 999 999 Reason for Visit * Reason Onset Date Comments Test Results 10/06/2023 LMOM 10/08/23 Encounter Details Date Type Department Care Team ([facility] st Contact Info) Description 10/06/2023 Telephone Family Practice [address] [phone] Keagan Sanchez MD [address] [place] [phone] Test Results (LMOM 10/08/23) Allergies Active [...] hypothyroidism 04/12/2021 Coronary artery disease invo lving [place] coronary artery of [place] heart without angina pectoris 09/27/2020 S/P angioplasty [...] encounter Miscellaneous Notes * Telephone Encounter - Alyse Longo OSA - 10/08/2023 3:07 PM EDT Reason for patient's call: returning phone call about test results Caller was transferred to [facility] at the nurse line. * Telephone Encounter [...] patient to relay the results to her [phone] * Telephone Encounter - Keagan Sanchez MD [...] Weight Management, [facility] [address] [place] [address] Anai Schultz PA-C [address] [place] [address] 12/22/2023 1:40 PM EDT Office Visit Family Practice [facility] [address] [place] [phone] Keagan Sanchez MD 68 [place] [address] 08/09/2024 10:00 AM EDT Office Visit Orthopaedics [facility] [address] [place] [phone] Sami Angelo DO 16 [place] [address] 10/07/2024 2:40 PM EDT Office Visit Dermatology [facility] [address] [place] [phone] Alden Ann PA-C [address] [place] [address] Scheduled Orders Name Type Priority Associated Diagnoses [...] D LEVEL ONCE IN A LIFETIME-USE SMARTSET# 00084 Completed 01/28/2022, 02/21/2015, 12/30/2011 RETIRED - COLONOSCOPY-EVERY [...] this encounter Medical Devices Implanted Type Area Clerical Grader Device Identifier Shelf Expiration Date Model / Serial / Lot Screw Jami Lacie 3 Ti Set - [id number] Implanted:Qty: 6 on 03[place]10[place] [facility] [place]: Spine Lumbar LEVON : SPINE [id number] / / Screw Lacie Pa Ti 6.5x50mm - [id number] Implanted:Qty: 4 on 03/10/2012 [place] [facility] Bilateral: Spine Lumbar LEVON : SPINE [id number] / / Levon Xia3 7.0 X 40mm Screws Implanted:Qty: 2 on 03/10/2012 [place] [facility] Bilateral: Spine Lumbar [id number] / / Shaun Lacie 3 Ti 6x70mm - [id number] Implanted:Qty: 1 on 03/10/2012 [place] [facility] N/A: Spine Lumbar LEVON : SPINE [id number] / / Shaun Lacie 3 Ti Max 6x80mm - [id number] Implanted:Qty: 1 on 03/10/2012 [place] [facility] N/A: Spine Lumbar LEVON : SPINE [id number] / / 9 X 25 X 4 - 8 Avs Wedge Nose Cage Implanted:Qty: 1 on 03/10/2012 at [place] [facility] N/A: Spine Lumbar [id number] / / Stent Synergy Xd Mr 2.68t23yz - [id number] Implanted:Qty: 1 on 09/20/2020 at [facility] [employer] [id number] 04/18/2022 [id number] 220 / / [id number] Stent Synergy Xd Mr 2.92m28bg - [id number] Implanted:Qty: 1 on 09/20/2020 at [facility] [employer] [id number] 04/25/2022 [id number] 220 / / [id number] Screw Locking 4.5mm 15mm - [id number] Implanted:Qty: 1 on 07/11/2022 by Sami Angelo DO at [place] [facility] Right: Shoulder [employer] 11/22/2025 108-4515 / / [id number] Bseplate Jasmeet Cmntlss W Scrw - [id number] Implanted:Qty: 1 on 07/11/2022 by Sami Angelo DO at [place] [facility] Right: Shoulder [employer] 03/24/2027 105-0029 / / [id number] Glenosphere Rev Thee W Scrw - [id number] Implanted:Qty: 1 on 07/11/2022 by Sami Angelo DO at [place] [facility] Right: Shoulder [employer] 04/24/2027 105-3610 / / [id number] Screw Locking 4.5mm 15mm - [id number] Implanted:Qty: 1 on 07/11/2022 by Sami Angelo DO at [place] [facility] Right: Shoulder [employer] 03/24/2027 108-4515 / / [id number] Screw Locking 4.5mm 20mm - [id number] Implanted:Qty: 1 on 07/11/2022 by Sami Angelo DO at [place] [facility] Right: Shoulder [employer] 03/24/2027 108-4520 / / [id number] Humelock Ii Stem Ta6v Size 12 Cementless Implanted:Qty: 1 on 07/11/2022 by Sami Angelo DO at [place] [facility] Right: Shoulder [employer] 10/22/2026 311-0212 / / [id number] Cortical Screw Ta6v, 5mm, L. 24mm Implanted:Qty: 1 on 07/11/2022 by Sami Angelo DO at [place] [facility] Right: Shoulder [employer] 09/22/2023 107-4524 / / [id number] Humeral Cup 135/145 Degree, Standard, 36/+6 Implanted:Qty: 1 on 07/11/2022 by Sami Angelo DO at [place] [facility] Right: Shoulder 02/21/2025 313-0706 / / [id number] Screw Locking 4.5mm 20mm - [id number] Implanted:Qty: 1 on 07/11/2022 by Sami Angelo DO at [place] [facility] Right: Shoulder [employer] 03/24/2027 108-4520 [...] [facility] Donny Pace Spouse Health Care Agent Care Teams Glass Mold Repairer Relationship Specialty Start Date End Date Keagan Sanchez MD [address] [place] [address] PCP - General Family Medicine 10/07/23 documented as of this encounter
--- OUTSIDE RECORDS SUMMARY | 2024-03-06 12:41 | External Medical Summary | Summary of Care ---
Author Name Unknown Organization [facility] Address [address] [facility] [place] [address] Phone [phone] Care Team Providers Care Line Worker Name Role Phone Keagan Jalloh MD Primary Care Provider [phone] Reason for Visit * Reason Onset Date Comments Medication Refill 10/01/2023 Encounter Details Date Type Department Care Team ([facility] st Contact Info) Description 10/01/[address] [phone] Keagan Jalloh MD [address] [place] [phone] Postlaminectomy syndrome, lumbar Allergies Active Allergy Reactions [...] for Pain, Moderate. 90 Tablet 10/02/2023 Active traMADol HCl 50 MG Oral Tablet (Ultram)Indication s:Postlaminectomy syndrome, lumbar Take 2 Tablets by mouth every 6 hours as needed for Pain, Moderate. 90 Tablet 09/12/2023 4 Discontinue d(Refill) documented as of this [...] hypothyroidism 04/12/2021 Coronary artery disease invo lving [place] coronary artery of [place] heart without angina pectoris 09/27/2020 S/P angioplasty [...] Telephone Encounter - Keagan Jalloh MD - 10/02/2023 4:18 PM EDTSigned Prescriptions: Disp Refills traMADol HCl 50 MG Oral Tablet (Ultram) 90 Tab*0 Sig: Take 2 Tablets by mouth every 6 hours as needed for Pain, Moderate. Authorizing Provider: KEAGAN JALLOH * Telephone Encounter - Dionna Pappas [facility] - 10/02/2023 3:05 PM EDT Pending Prescriptions: Disp Refills traMADol HCl 50 MG Oral Tablet (Ultram) 90 Tab*0 Sig: Take 2 Tablets by mouth every 6 hours as needed for Pain, Moderate. * Telephone Encounter - Dionna Pappas [facility] - 10/02/2023 3:03 PM EDT I have reviewed the patients controlled substance dispensing history in the Prescription Drug Monitoring Program in compliance with the [facility] regulations before prescribing a controlled substance. PDMP checked on 10/02/2023. Pending Prescriptions: Disp Refills traMADol HCl 50 MG Oral Tablet (Ultram) 90 Tab*0 Sig: Take 2 Tablets by mouth every 6 hours as needed for Pain, Moderate. Last Visit: 08/27/2023 (in office), Visit date not found (telemedicine) Next Visit: 12/22/2023 Date medication was last filled: 09/12/23 Date medication is due for refill: 09/23/23 Pharmacy: [id number] Is this request for a controlled substance? [...] in Results Review. Please approve if appropriate. Thank You Diane RomanD Clinical Pharmacist [facility] ([facility]) [phone] / [phone] 10/02/2023, 3:04 PM documented in this encounter Plan of Treatment Upcoming Encounters Date Type Department Care Team (Late st Contact Info) Description 10/03/2023 8:30 AM EDT Appointment [facility] [place] [address] [place] [address] 11/19/2023 10:00 AM EDT Office Visit Nutrition & Weight Management, [address] [place] [address] Anai Schultz PA-C [address] [place] [address] 12/22/2023 1:40 PM EDT Office Visit Family [facility] [address] [place] [phone] Keagan Jalloh MD [address] [place], [place] [phone] 08/09/2024 10:00 AM EDT Office Visit Orthopaedics [facility] 16 [place] [address] Sami Angelo DO 16 [place] [address] 10/07/2024 2:40 PM EDT Office Visit Dermatology [address] [phone] Alden Ann PA-C [address] [place] [phone] Scheduled Procedures Name Priority Associated Diagnoses Date/Ti [...] D LEVEL ONCE IN A LIFETIME-USE SMARTSET# 32628 Completed 01/28/2022, 02/21/2015, 12/30/2011 RETIRED - COLONOSCOPY-EVERY [...] encounter Medical Devices Implanted Type Area Network Designer Device Identifier Shelf Expiration Date Model / Serial / Lot Screw Jami Lacie 3 Ti Set - [id number] Implanted:Qty: 6 on 03/10/2012 at [place] [facility] [place] Bilateral: Spine Lumbar LEVON : SPINE [id number] / / Screw Lacie Pa Ti 6.5x50mm - [id number] Implanted:Qty: 4 on 03/10/2012 at [place] [facility] Bilateral: Spine Lumbar LEVON : SPINE [id number] / / Levon Xia3 7.0 X 40mm Screws Implanted:Qty: 2 on 03/10/[address] [facility] Bilateral: Spine Lumbar [id number] / / Shaun Lacie 3 Ti 6x70mm - [id number] Implanted:Qty: 1 on 03/10/2012 at [place] [facility] N/A: Spine Lumbar LEVON : SPINE [id number] / / Shaun Lacie 3 Ti Max 6x80mm - [id number] Implanted:Qty: 1 on 03/10/2012 at [place] [facility] N/A: Spine Lumbar LEVON : SPINE [id number] / / 9 X 25 X 4 - 8 Avs Wedge Nose Cage Implanted:Qty: 1 on 03/10/2012 at [place] [facility] N/A: Spine Lumbar [id number] / / Stent Synergy Xd Mr 2.06z74sv - [id number] Implanted:Qty: 1 on 09/20/2020 at [facility] [employer] [id number] 04/18/2022 [id number] 220 / / [id number] Stent Synergy Xd Mr 2.97b94fk - [id number] Implanted:Qty: 1 on 09/20/2020 at [facility] [employer] [place] [id number] 04/25/2022 [id number] 220 / / [id number] Screw Locking 4.5mm 15mm - [id number] Implanted:Qty: 1 on 07/11/2022 by Sami Angelo DO at [place] [facility] Right: Shoulder [employer] 11/22/2025 108-4515 / / [id number] Bseplate Jasmeet Cmntlss W Scrw - [id number] Implanted:Qty: 1 on 07/11/2022 by Sami Angelo DO at [facility] Right: Shoulder [employer] 03/24/2027 105-0029 / / [id number] Glenosphere Rev Thee W Scrw - [id number] Implanted:Qty: 1 on 07/11/2022 by Sami Angelo DO at [facility] Right: Shoulder [employer] 04/24/2027 105-3610 / / [id number] Screw Locking 4.5mm 15mm - [id number] Implanted:Qty: 1 on 07/11/2022 by Sami Angelo DO at [place] [facility] Right: Shoulder [employer] 03/24/2027 108-4515 / / [id number] Screw Locking 4.5mm 20mm - [id number] Implanted:Qty: 1 on 07/11/2022 by Sami Angelo DO at [place] [facility] Right: Shoulder [employer] 03/24/2027 108-4520 / / [id number] Humelock Ii Stem Ta6v Size 12 Cementless Implanted:Qty: 1 on 07/11/2022 by Sami Angelo DO at [place] [facility] Right: Shoulder [employer] 10/22/2026 311-0212 / / [id number] Cortical Screw Ta6v, 5mm, L. 24mm Implanted:Qty: 1 on 07/11/2022 by Sami Angelo DO at [place] [facility] Right: Shoulder [employer] 09/22/2023 107-4524 / / [id number] Humeral Cup 135/145 Degree, Standard, 36/+6 Implanted:Qty: 1 on 07/11/2022 by Sami Angelo DO at [place] [facility] Right: Shoulder 02/21/2025 313-0706 / / [id number] Screw Locking 4.5mm 20mm - [id number] Implanted:Qty: 1 on 07/11/2022 by Sami Angelo DO at [place] [facility] Right: Shoulder [employer] [...] Agents on File Name Relationship [facility] Communication Donny Pace Spouse Health Care Agent Care Teams Line Worker Relationship Specialty Start Date End Date Keagan Jalloh MD [address] [place] [address] PCP - General Family Medicine 06/04/18 documented as of this encounter
--- OUTSIDE RECORDS SUMMARY | 2024-03-06 12:41 | External Medical Summary | Summary of Care ---
Author Name Unknown Organization [facility] Address [address] [facility] [place] [address] Phone [phone] Care Team Providers Care Radio Commentator Name Role Phone Keagan Sanchez MD Primary Care Provider [phone] Reason for Referral * Precert (Within 10 days (routine)) - Authorized Specialty Diagnoses / Procedures Referred By Lynn helton Referred To Contact Cardiac Studies Diagnoses SOB (shortness of breath) Procedures ECHO, COMPLETE (2D), TRANS-THORACIC Keagan Sanchez MD [address] [place] [address] Referral ID Status Reason Start Date Expiration Date V isits Requested Visits Authorized [id number] Authorized Precert 07/28/2023 999 999 Reason for Visit * Precert (Within 10 days (routine)) - Authorized Specialty Diagnoses / Procedures Referred By Lynn helton Referred To Contact Cardiac Studies Diagnoses SOB (shortness of breath) Procedures ECHO, COMPLETE (2D), TRANS-THORACIC Keagan Sanchez MD [address] [place] [address] Referral ID Status Reason Start Date Expiration Date V isits Requested Visits Authorized [id number] Authorized Precert 07/28/2023 999 999 Encounter Details Date Type Department Care Team (Latest Contact Info) Description 10/03/2023 8:12 AM EDT - 10/03/2023 11:59 PM EDT Hospital Encounter Cardiac Studies 1st Fl, [place] [address] [place] [address] Discharge Disposition: Home - Self Care Allergies Active Allergy Reactions Criticality Noted Date Comments Duloxetine Hcl Flushing,Nausea/vomi tin g High 10/20/2019 Erythromycin Base Rash 03/14/2004 Orlistat Low 03/31/2023 Other Reaction(s): GI UPSET Penicillins Rash 03/14/2004 Sulfa Antibiotics Rash 03/14/2004 documented as of this encounter (statuses as of 10/04/2023) Medications Medication Sig Dispensed Refills Start Date [...] as of this encounter (statuses as of 10/04/2023) Active Problems Problem Noted Date Diagnosed Date [...] hypothyroidism 04/12/2021 Coronary artery 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 09/27/2020 S/P [...] as of this encounter (statuses as of 10/04/2023) Resolved Problems Problem Noted Date Diagnosed Date [...] as of this encounter (statuses as of 10/04/2023) Immunizations Name Administration Dates Next Due COVID-19 [...] Reading Time Taken Comments Blood Pressure 118/60 10/03/2023 8:38 AM EDT Pulse - - Temperature - - Respiratory Rate - - Oxygen Saturation - - Inhaled Oxygen Concentration - - Weight 81.2 kg (179 lb) 10/03/2023 8:38 AM EDT Height 162.6 cm (5' 4") 10/03/2023 8:38 AM EDT Body Mass Index 30.73 10/03/2023 8:38 AM [...] EDT Office Visit Nutrition & Weight Management, [facility] [address] [facility] [place] [address] Anai Schultz PA-C [address] [facility] [place] [address] 12/22/2023 1:40 PM EDT Office Visit [address] [place] [phone] Keagan Sanchez MD [address] [place], [place] [address] [address] 08/09/2024 10:00 AM EDT Office Visit [facility] [address] [place] [address] Sami Angelo DO [address] [place] [address] 10/07/2024 2:40 PM EDT Office Visit Dermatology [facility] [address] [place] [address] Alden Ann PA-C [address] [place] [address] Scheduled Procedures Name Priority Associated Diagnoses Date/Ti [...] D LEVEL ONCE IN A LIFETIME-USE SMARTSET# 79609 Completed 01/28/2022, 02/21/2015, 12/30/2011 RETIRED - COLONOSCOPY-EVERY [...] encounter Medical Devices Implanted Type Area Manager Nc Device Identifier Shelf Expiration Date Model / Serial / Lot Screw Jami Lacie 3 Ti Set - [id number] Implanted:Qty: 6 on 03/10/2012 [place] [facility] Bilateral: Spine Lumbar LEVON : SPINE [id number] / / Screw Lacie Pa Ti 6.5x50mm - [id number] Implanted:Qty: 4 on 03/10/2012 at [place] [facility] Bilateral: Spine Lumbar LEVON : SPINE [id number] / / Levon Xia3 7.0 X 40mm Screws Implanted:Qty: 2 on 03/10/2012 at [place] [facility] Bilateral: Spine Lumbar [id number] / / Shaun Lacie 3 Ti 6x70mm - [id number] Implanted:Qty: 1 on 03/10/2012 at [place] [facility] N/A: Spine Lumbar LEVON : SPINE [id number] / / Shaun Lacie 3 Ti Max 6x80mm - [id number] Implanted:Qty: 1 on 03/10/2012 at [place] [facility] N/A: Spine Lumbar LEVON : SPINE [id number] / / 9 X 25 X 4 - 8 Avs Wedge Nose Cage Implanted:Qty: 1 on 03/10/2012 at [place] [facility] N/A: Spine Lumbar [id number] / / Stent Synergy Xd Mr 2.55l33ue - [id number] Implanted:Qty: 1 on 09/20/2020 at [facility] [employer] [id number] 04/18/2022 [id number] 220 / / [id number] Stent Synergy Xd Mr 2.95y30nu - [id number] Implanted:Qty: 1 on 09/20/2020 at [facility] [employer] [id number] 04/25/2022 [id number] / / [id number] Screw Locking 4.5mm 15mm - [id number] Implanted:Qty: 1 on 07/11/2022 by Sami Angelo DO at [place] [facility] Right: Shoulder [employer] 11/22/2025 108-4515 / / [id number] Bseplate Jasmeet Cmntlss W Scrw - [id number] Implanted:Qty: 1 on 07/11/2022 by Sami Angelo DO at [place] [facility] Right: Shoulder [employer] 03/24/2027 105-0029 / / [id number] [employer] Rev Thee W Scrw - [id number] Implanted:Qty: 1 on 07/11/2022 by Sami Angelo DO at [place] [facility] Right: Shoulder [employer] 04/24/2027 105-3610 / / [id number] Screw Locking 4.5mm 15mm - [id number] Implanted:Qty: 1 on 07/11/2022 by Sami Angelo DO at [place] [facility] Right: Shoulder [employer] 03/24/2027 108-4515 / / [id number] Screw Locking 4.5mm 20mm - [id number] Implanted:Qty: 1 on 07/11/2022 by Sami Angelo DO at [place] [facility] Right: Shoulder [employer] 03/24/2027 108-4520 / / [id number] Humelock Ii Stem Ta6v Size 12 Cementless Implanted:Qty: 1 on 07/11/2022 by Sami Angelo, DO at [facility] / [id number] Screw Locking 4.5mm 20mm - [id number] Implanted:Qty: 1 on 07/11/2022 by Sami Angelo, DO at [place] [facility] Right: Shoulder [employer] 03/24/2027 108-4520 / / [id number] documented as of this encounter Procedures Procedure Name Priority Date/Time Associated Diagnosis Comments ECHO, COMPLETE (2D), TRANS-THORACIC Routine 10/03/2023 9:14 AM EDT SOB (shortness of breath) documented in this encounter Results * ECHO, COMPLETE (2D), TRANS-THORACIC (10/03/2023 9:14 AM EDT) LEFT VENTRICULAR [facility]JECTION FRACTION 55 [facility] 10/03/2023 8:38 AM EDT Keagan Sanchez MD [facility] documented in this encounter Visit Diagnoses Diagnosis SOB (shortness of breath) Shortness of breath documented in this encounter [...] Pace Spouse Health Care Agent Care Teams Radio Commentator Relationship Specialty Start Date End Date Keagan Sanchez MD [address] [place] [address] PCP - General Family Medicine 06/04/18 documented as of this encounter
--- OUTSIDE RECORDS SUMMARY | 2024-03-06 12:41 | External Medical Summary | Summary of Care ---
Author Name Unknown Organization [facility] Address [address] [facility] [place] [address] Phone [phone] Care Team Providers Care Marketing Sales Supervisor Name Role Phone Keagan Jalloh MD Primary Care Provider Reason for Visit * Reason Comments Skin Check Annual skin check. N o areas of concern. Encounter Details Date Type Department Care Team ([facility] Contact Info) Description 10/02/2023 2:40 PM EDT Office Visit Dermatology [address] [phone] Alden Ann PA-C [address] [place] [address] Screening for malignant neoplasm of skin*; [...] hypothyroidism 04/12/2021 Coronary artery disease invo lving omaha coronary artery of [place]maha heart without angina pectoris 09/27/2020 S/P angioplasty [...] as of this encounter Progress Notes * Delbert New MD - 10/02/2023 4:34 PM EDT I have seen and examined via teledermatology review of chart note and photos the patient with Alden Ann PA-C. I have reviewed and agree with the assessment and plan. Delbert New MD * Alden Ann PA-C - 10/02/2023 2:51 [...] Araseli Ann PA-C 10/02/2023 2:51 PM Ref: SELF[[id number]] NO STREET ADDRESS AVAILABLE None (office) None (fax) PCP: KEAGAN JALLOH [address] [place] [address] [phone] documented in this encounter Nursing Notes * Mala Romero LPN - 10/02/2023 2:47 PM EDT Patient identified by name and date. Chief Complaint Patient presents with Skin Check Annual skin check. No areas of concern. documented in this encounter Plan of Treatment Upcoming Encounters Date Type Department Care Team ([facility] st Contact Info) Description 10/03/2023 8:30 AM EDT Appointment Cardiac Studies [address] [place] [address] [address] [place] [address] 11/19/2023 10:00 AM EDT Office Visit Nutrition & Weight Management, [facility] [address] [facility] [place] [address] Anai Schultz PA-C [address] [facility] [place] [address] 12/22/2023 1:40 PM EDT Office Visit Family Practice [address] [phone] Keagan Jalloh MD [address] [place] [address] 08/09/2024 10:00 AM EDT Office Visit Orthopaedics Andrez Alejandre [address] [place] [phone] Sami Angelo DO [address] [place] [address] 10/07/2024 2:40 PM EDT Office Visit Dermatology [facility] [address] [place] [address] Alden Ann PA-C [address] [place] [address] Pending Results Name Type Priority Associated Diagnoses [...] 09/20/2020, Additional history exists TSH 07/16/2024 07/17/2023, 0811/2022, 09/10/2022, Additional history exists GFR 08/24/2024 08/25/2023, 0603/2023, 07/20/2023, Additional history exists DTaP,Tdap,and Td Vaccines (3 - Td or Tdap) 10/10/2026 10/10/2016, 10/26/2005 Colonoscopy 04/18/2027 04/18/2022, 03/25, 08/10/2013, Additional history exists Colorectal Cancer Screening 04/18/2027 VITAMIN D LEVEL ONCE IN A LIFETIME-USE SMARTSET# 97573 Completed 01/28/2022, 02/21/2015, 12/30/2011 RETIRED - COLONOSCOPY-EVERY [...] encounter Medical Devices Implanted Type Area Supervisor Wall Mirror Department Device Identifier Shelf Expiration Date Model / Serial / Lot Screw Jami Lacie 3 Ti Set - [id number] Implanted:Qty: 6 on 03/10/2012 at OR [facility] Bilateral: Spine Lumbar LEVON : SPINE [id number] / / Screw Lacie Pa Ti 6.5x50mm - [id number] Implanted:Qty: 4 on 03/10/2012 at OR [facility] Bilateral: Spine Lumbar LEVON : SPINE [id number] / / [place] Xia3 7.0 X 40mm Screws Implanted:Qty: 2 on 03/10/2012 at OR [facility] Bilateral: Spine Lumbar [id number] / / Shaun Lacie 3 Ti 6x70mm - [id number] Implanted:Qty: 1 on 03/10/2012 at OR [facility] N/A: Spine Lumbar LEVON : SPINE [id number] / / Shaun Lacie 3 Ti Max 6x80mm - [id number] Implanted:Qty: 1 on 03/10/2012 at OR [facility] N/A: Spine Lumbar LEVON : SPINE [id number] / / 9 X 25 X 4 - 8 Avs Wedge Nose Cage Implanted:Qty: 1 on 03/10/2012 at OR [facility] N/A: Spine Lumbar [id number] / / Stent Synergy Xd Mr 2.75z92dc - [id number] Implanted:Qty: 1 on 09/20/2020 at [facility] [employer] [id number] 04/18/2022 [id number] 220 / / [id number] Stent Synergy Xd Mr 2.90d29ec - [id number] Implanted:Qty: 1 on 09/20/2020 at [facility] [employer] [id number] 04/25/2022 [id number] 220 / / [id number] Screw Locking 4.5mm 15mm - [id number] Implanted:Qty: 1 on 07/11/2022 by Sami Angelo DO at OR [facility] Right: Shoulder [employer] 11/22/2025 108-4515 / / [id number] Bseplate Jasmeet Cmntlss W Scrw - [id number] Implanted:Qty: 1 on 07/11/2022 by Sami Angelo DO at OR [facility] Right: Shoulder [employer] 03/24/2027 105-0029 / / [id number] Glenosphere Rev Thee W Scrw - [id number] Implanted:Qty: 1 on 07/11/2022 by Sami Angelo DO OR [facility] Right: Shoulder [employer] 04/24/2027 105-3610 / / [id number] Screw Locking 4.5mm 15mm - [id number] Implanted:Qty: 1 on 07/11/2022 by Sami Angelo DO at OR [facility] Right: Shoulder [employer] 03/24/2027 108-4515 / / [id number] Screw Locking 4.5mm 20mm - [id number] Implanted:Qty: 1 on 07/11/2022 by Sami Angelo DO at OR [facility] Right: Shoulder [employer] 03/24/2027 108-4520 / / [id number] Humelock Ii Stem Ta6v Size 12 Cementless Implanted:Qty: 1 on 07/11/2022 by Sami Angelo DO at OR [facility] Right: Shoulder [employer] 10/22/2026 311-0212 / / [id number] Cortical Screw Ta6v, 5mm, L. 24mm Implanted:Qty: 1 on 07/11/2022 by Sami Angelo DO at OR [facility] Right: Shoulder [employer] 09/22/2023 107-4524 / / [id number] Humeral Cup 135/145 Degree, Standard, 36/+6 Implanted:Qty: 1 on 07/11/2022 by Sami Angelo DO at OR [facility] Right: Shoulder 02/21/2025 313-0706 / / [id number] Screw Locking 4.5mm 20mm - [id number] Implanted:Qty: 1 on 07/11/2022 by Sami Angelo DO at OR [facility] Right: Shoulder [employer] 03/24/2027 108-4520 [...] study not interpreted or resulted by a [facility] or [facility] contracted radiologist. Alden Ann PA-C RADIOLOGY ([facility]) documented in this encounter Visit Diagnoses Diagnosis [...] Pace Spouse Health Care Agent Care Teams Marketing Sales Supervisor Relationship Specialty Start Date End Date Keagan Jalloh MD [address] [place] [address] PCP - General Family Medicine 06/04/18 documented as of this encounter
--- OUTSIDE RECORDS SUMMARY | 2024-03-06 12:42 | External Medical Summary | Summary of Care ---
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 Procedures CT CHEST WO CONTRAST Keagan Sanchez MD [address] [place] [address] Referral ID Status Reason Start Date Expiration Date V isits Requested Visits Authorized [id number] Pending Review 09/12/2023 999 999 Reason for Visit * Precert (Within 10 days (routine)) - Pending Review Specialty Diagnoses / Procedures Referred By Lynn helton Referred To Contact Radiology Diagnoses Shortness of breath 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 Procedures CT CHEST WO CONTRAST Keagan Sanchez MD [address] [place] [address] Referral ID Status Reason Start Date Expiration Date V isits Requested Visits Authorized [id number] Pending Review 09/12/[phone] Encounter Details Date Type Department Care Team (Latest Contact Info) Description 09/12/2023 9:38 AM EDT - 09/12/2023 11:59 PM EDT Hospital Encounter Radiology, [facility] [address] [place] [address] Arrived Discharge Disposition: Home - Self Care Allergies Active Allergy Reactions Criticality Noted Date Comments Duloxetine Hcl Flushing,Nausea/vomi tin g High 10/20/2019 Erythromycin Base Rash 03/14/2004 Orlistat Low 03/31/2023 Other Reaction(s): GI UPSET Penicillins Rash 03/14/2004 Sulfa Antibiotics Rash 03/14/2004 documented as of this encounter (statuses as of 09/13/2023) Medications Medication Sig Dispensed Refills Start Date [...] MEDICATIONS 90 Tablet 1 06/03/2023 06/02/2024 Active Metoclopramide HCl 10 MG Oral Tablet (Reglan) TAKE ONE TABLET BY MOUTH THREE TIMES A DAY THIRTY MINUTES BEFORE MEALS 270 Tablet 06/24/2023 06/23/2024 Active Gabapentin 800 MG Oral Tablet (Neurontin)Indicati ons:DDD (degenerative disc disease), cervical TAKE ONE TABLET BY MOUTH THREE TIMES A DAY. DECREASE DOSE DIRECTED 270 Tablet 07/04/2023 07/03/2024 Active Baclofen 20 MG Oral Tablet TAKE ONE TABLET BY MOUTH FOUR TIMES A DAY (MORNING, NOON, EVENING AND BEDTIME) 360 Tablet 07/04/2023 Active Sucralfate 1 GM Oral Tablet (Carafate) [...] for Pain, Moderate. 90 Tablet 09/12/2023 Active documented as of this encounter (statuses as of 09/13/2023) Active Problems Problem Noted Date Diagnosed Date [...] hypothyroidism 04/12/2021 Coronary artery disease invo lving augustine coronary artery of augustine heart without angina pectoris 09/27/2020 S/P angioplasty [...] as of this encounter (statuses as of 09/13/2023) Resolved Problems Problem Noted Date Diagnosed Date [...] as of this encounter (statuses as of 09/13/2023) Immunizations Name Administration Dates Next Due COVID-19 [...] Upcoming Encounters Date Type Department Care Team ([facility] Contact Info) Description 10/02/2023 2:40 PM EDT Office Visit Dermatology [address] [phone] Alden Ann PA-C [address] [place] [address] 10/03/2023 8:30 AM EDT Appointment Cardiac Studies [facility], [address] [address] 11/19/2023 10:00 AM EDT Office Visit Nutrition & Weight Management, [facility] [address] [facility] [place] [address] Anai Schultz PA-C [address] [place] [address] 12/22/2023 1:40 PM EDT Office Visit Family Practice [address] [phone] Keagan Sanchez MD [address] [place] [address] 08/09/2024 10:00 AM EDT Office Visit Orthopaedics Andrez Alejandre [address] [facility] 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 1 Occurrences starting 09/12/2023 until 09/12/2023 Scheduled Procedures Name Priority Associated Diagnoses Date/Ti [...] 09/10/2022, Additional history exists GFR 08/24/2024 08/25/2023, 06/03/2023, 07/20/2023, Additional history exists DTaP,Tdap,and Td Vaccines (3 - Td or Tdap) 10/10/2026 10/10/2016, 10/26/2005 Colonoscopy 04/18/2027 04/18/2022, 03/25, 08/10/2013, Additional history exists Colorectal Cancer Screening 04/18/2027 VITAMIN D LEVEL ONCE IN A LIFETIME-USE SMARTSET# [id number] Completed 01/28/2022, 02/21/2015, 12/30/2011 RETIRED - COLONOSCOPY-EVERY 5 YRS AGES 18-100 Discontinued 04/18/2022, 04/18/2022, 08/10/2013, Additional history exists Influenza Vaccine (FLU shot) Completed 01/21/2023, 12/03/2021, 12/15/2020, Additional history exists GARDASIL-HPV IMMUNIZATION SERIES Aged Out No longer eligible based on patient's age to complete this topic Hepatitis B Aged Out No longer eligi ble based on patient's age to complete this topic MENINGOCOCCAL (MENACTRA/MENVEO) Aged Out No longer eligible based on patient's age to complete this topic Pneumococcal Vaccine: Pediatrics (0 to 5 Years) and At-Risk Patients (6 to 64 Years) Aged Out No longer eligible based on patient's age to complete this topic documented as of this encounter Medical Devices Implanted Type Area Adjunct Phlebotomy Instructor Device Identifier Shelf Expiration Date Model / Serial / Lot Screw Jami Lacie 3 Ti Set - [id number] Implanted:Qty: 6 on 03/10/2012 at OR [facility] Bilateral: Spine Lumbar LEVON : SPINE [id number] / / Screw Lacie Pa Ti 6.5x50mm - [id number] Implanted:Qty: 4 on 03/10/2012 at OR [facility] Bilateral: Spine Lumbar LEVON : SPINE [id number] / / Levon Xia3 7.0 X 40mm Screws Implanted:Qty: 2 on 03/10/2012 at OR [facility] Bilateral: Spine Lumbar [id number] / / Shaun Lacie 3 Ti 6x70mm - [id number] Implanted:Qty: 1 on 03/10/2012 at OR [facility] N/A: Spine Lumbar LEVON : SPINE [id number] / / Shaun Lacie 3 Ti Max 6x80mm - [id number] Implanted:Qty: 1 on 03/10/2012 at OR [facility] N/A: Spine Lumbar LEVON : SPINE [id number] / / 9 X 25 X 4 - 8 Avs Wedge Nose Cage Implanted:Qty: 1 on 03/10/2012 at OR [facility] N/A: Spine Lumbar [id number] / / Stent Synergy Xd Mr 2.29l84dh - [id number] Implanted:Qty: 1 on 09/20/2020 at [facility] [employer] [id number] 04/18/2022 [id number] 220 / / [id number] Stent Synergy Xd Mr 2.16c14vm - [id number] Implanted:Qty: 1 on 09/20/2020 at [facility] [employer] [id number] 04/25/2022 [id number] 220 / / [id number] Screw Locking 4.5mm 15mm - [id number] Implanted:Qty: 1 on 07/11/2022 by Sami Angelo DO at OR [facility] Right: Shoulder [employer] 11/22/2025 108-4515 / / [id number] Bseplate Jasmeet Cmntlss W Scrw - [id number] Implanted:Qty: 1 on 07/11/2022 by Sami Angelo DO at OR [facility] Right: Shoulder [employer] 03/24/2027 105-0029 / / [id number] [employer] Rev Thee W Scrw - [id number] Implanted:Qty: 1 on 07/11/2022 by Sami Angelo DO at OR [facility] Right: Shoulder [employer] 04/24/2027 105-3610 / / [id number] Screw Locking 4.5mm 15mm - [id number] Implanted:Qty: 1 on 07/11/2022 by Sami Angelo DO at OR [facility] Right: Shoulder [employer] 03/24/2027 108-4515 / / [id number] Screw Locking 4.5mm 20mm - [id number] Implanted:Qty: 1 on 07/11/2022 by Sami Angelo DO at OR [facility] Right: Shoulder [employer] 03/24/2027 108-4520 / / [id number] Humelock Ii Stem Ta6v Size 12 Cementless Implanted:Qty: 1 on 07/11/2022 by Sami Angelo DO at OR [facility] Right: Shoulder [employer] 10/22/2026 311-0212 / / [id number] Cortical Screw Ta6v, 5mm, L. 24mm Implanted:Qty: 1 on 07/11/2022 by Sami Angelo DO at OR [facility] Right: Shoulder [employer] 09/22/2023 107-4524 / / [id number] Humeral Cup 135/145 Degree, Standard, 36/+6 Implanted:Qty: 1 on 07/11/2022 by Sami Angelo DO at OR [facility] Right: Shoulder 02/21/2025 313-0706 / / [id number] Screw Locking 4.5mm 20mm - [id number] Implanted:Qty: 1 on 07/11/2022 by Sami Angelo DO at OR [facility] Right: Shoulder [employer] 03/24/2027 108-4520 / / [id number] documented as of this encounter Visit Diagnoses Diagnosis Shortness of breath 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
--- OUTSIDE RECORDS SUMMARY | 2024-03-06 12:42 | External Medical Summary | Summary of Care ---
Author Name Unknown Organization [facility] Address [address] [facility] [place] [address] Phone [phone] Care Team Providers Care Taker Out Name Role Phone Keagan Jalloh MD Primary Care Provider [phone] Reason for Visit * Reason Onset Date Comments Medication Refill 09/10/2023 Encounter Details Date Type Department Care Team ([facility] st Contact Info) Description 09/10/[address] [phone] Keagan Jalloh MD [address] [place] [address] [phone] Allergies Active Allergy Reactions Criticality Noted Date Comments Duloxetine Hcl Flushing,Nausea/vomi tin g High 10/20/2019 Erythromycin Base Rash 03/14/2004 Orlistat Low 03/31/2023 Other Reaction(s): GI UPSET Penicillins Rash 03/14/2004 Sulfa Antibiotics Rash 03/14/2004 documented as of this encounter (statuses as of 09/12/2023) Medications Medication Sig Dispensed Refills Start Date [...] MEDICATIONS 90 Tablet 1 06/03/2023 5 Active Metoclopramide HCl 10 MG Oral Tablet (Reglan) TAKE ONE TABLET BY MOUTH THREE TIMES A DAY THIRTY MINUTES BEFORE MEALS 270 Tablet 06/24/2023 5 Active Gabapentin 800 MG Oral Tablet (Neurontin)Indicat ions:DDD (degenerative disc disease), cervical TAKE ONE TABLET BY MOUTH THREE TIMES A DAY. DECREASE DOSE DIRECTED 270 Tablet 07/04/2023 5 Active Baclofen 20 MG Oral Tablet TAKE [...] Anxiety (hyperventilatio n). 30 Tablet 09/12/2023 Active hydrOXYzine HCl 50 MG Oral Tablet Take 1 Tablet by mouth 3 times a day as needed for Anxiety (hyperventilatio n). 30 Tablet 08/19/2023 4 Discontinue d(Refill) traMADol HCl 50 MG Oral Tablet (Ultram)Indication s:Postlaminectomy syndrome, lumbar Take 2 Tablets by mouth every 6 hours as needed for Pain, Moderate. 90 Tablet 08/19/2023 4 Discontinue d(Refill) documented as of this encounter (statuses as of 09/12/2023) Active Problems Problem Noted Date Diagnosed Date [...] hypothyroidism 04/12/2021 Coronary artery disease invo lving citizen [place] coronary artery of [place] heart without angina pectoris 09/27/2020 S/P angioplasty [...] as of this encounter (statuses as of 09/12/2023) Resolved Problems Problem Noted Date Diagnosed Date [...] as of this encounter (statuses as of 09/12/2023) Immunizations Name Administration Dates Next Due COVID-19 [...] Telephone Encounter - Keagan Jalloh MD - 09/12/2023 9:44 AM EDTSigned Prescriptions: Disp Refills hydrOXYzine HCl 50 MG Oral Tablet 30 Tab*0 Sig: Take 1 Tablet by mouth 3 times a day as needed for Anxiety (hyperventilation). Authorizing Provider: KEAGAN JALLOH * Telephone Encounter - Mala Pineda RP - 09/11/2023 10:44 AM EDT Pending Prescriptions: Disp Refills hydrOXYzine HCl 50 MG Oral Tablet 30 Tab*0 Sig: Take 1 Tablet by mouth 3 times a day as needed for Anxiety (hyperventilation). * Telephone Encounter - Mala Pineda RPh - 09/11/2023 10:44 AM EDT Refill pharmacists currently not authorized to approve refills for this class of medication per refill protocol. Please approve if appropriate. Thank you, Mala Pineda, PharmD. Clinical Pharmacist Pharmacy Refill Call Center 09/11/2023, 10:44 AM documented in this encounter Plan of Treatment Upcoming Encounters Date Type Department Care Team (Late st Contact Info) Description 09/12/2023 9:38 AM EDT Hospital Encounter Radiology, [facility] [address] [place] [address] Arrived 10/02/2023 2:40 PM EDT Office Visit Dermatology [facility] [address] [place] [phone] Alden Ann PA-C [address] [place] [address] 10/03/2023 8:30 AM EDT Appointment Cardiac Studies 1st Fl, [facility] [address] [place] [address] 11/19/2023 10:00 AM EDT Office Visit Nutrition & Weight Management, [facility] [address] [place] [address] Anai Schultz PA-C [address] [place] [address] 12/22/2023 1:40 PM EDT Office Visit Family Practice [facility] [address] [place] [phone] Keagan Jalloh MD [address] [place] [address] 08/09/2024 10:00 AM EDT Office Visit Orthopaedics Andrez Alejandre [address] [place] [phone] Sami Angelo DO [address] [place] [address] Scheduled Procedures Name Priority Associated Diagnoses Date/Ti [...] D LEVEL ONCE IN A LIFETIME-USE SMARTSET# 26799 Completed 01/28/2022, 02/21/2015, 12/30/2011 RETIRED - COLONOSCOPY-EVERY [...] this encounter Medical Devices Implanted Type Area 7Th Grade Social Studies Teacher Device Identifier Shelf Expiration Date Model / Serial / Lot Screw Jami Lacie 3 Ti Set - [id number] Implanted:Qty: 6 on 03/10/2012 at [facility] Bilateral: Spine Lumbar LEVON : SPINE [id number] / / Screw Lacie Pa Ti 6.5x50mm - [id number] Implanted:Qty: 4 on 03/10/2012 at [facility] Bilateral: Spine Lumbar LEVON : SPINE [id number] / / [place] Xia3 7.0 X 40mm Screws Implanted:Qty: 2 on 03/10/2012 at [facility] Bilateral: Spine Lumbar [id number] / / Shaun Lacie 3 Ti 6x70mm - [id number] Implanted:Qty: 1 on 03/10/2012 at OR [facility] N/A: Spine Lumbar LEVON : SPINE [id number] / / Shaun Lacie 3 Ti Max 6x80mm - [id number] Implanted:Qty: 1 on 03/10/2012 at OR [facility] N/A: Spine Lumbar LEVON : SPINE [id number] / / 9 X 25 X 4 - 8 Avs Wedge Nose Cage Implanted:Qty: 1 on 03/10/2012 at OR [facility] N/A: Spine Lumbar [id number] / / Stent Synergy Xd Mr 2.98t96tp - [id number] Implanted:Qty: 1 on 09/20/2020 at [facility] [employer] [id number] 04/18/2022 [id number] 220 / / [id number] Stent Synergy Xd Mr 2.96m64nj - [id number] Implanted:Qty: 1 on 09/20/2020 at [facility] [employer] [id number] 04/25/2022 [id number] 220 / / [id number] Screw Locking 4.5mm 15mm - [id number] Implanted:Qty: 1 on 07/11/2022 by Sami Angelo DO at OR [facility] Right: Shoulder [employer] 11/22/2025 108-4525 / / [id number] Bseplate Jasmeet Cmntlss W Scrw - [id number] Implanted:Qty: 1 on 07/11/2022 by Sami Angelo DO at OR [facility] Right: Shoulder [employer] 03/24/2027 105-0029 / / [id number] Glenosphere Rev Thee W Scrw - [id number] Implanted:Qty: 1 on 07/11/2022 by Sami Angelo DO at OR [facility] Right: Shoulder [employer] 04/24/2027 105-3610 / / [id number] Screw Locking 4.5mm 15mm - [id number] Implanted:Qty: 1 on 07/11/2022 by Sami Angelo DO at OR [facility] Right: Shoulder [employer] 03/24/2027 108-4515 / / [id number] Screw Locking 4.5mm 20mm - [id number] Implanted:Qty: 1 on 07/11/2022 by Sami Angelo DO at OR [facility] Right: Shoulder [employer] 03/24/2027 108-4520 / / [id number] Humelock Ii Stem Ta6v Size 12 Cementless Implanted:Qty: 1 on 07/11/2022 by Sami Angelo DO at OR [facility] Right: Shoulder [employer] 10/22/2026 311-0212 / / [id number] Cortical Screw Ta6v, 5mm, L. 24mm Implanted:Qty: 1 on 07/11/2022 by Sami Angelo DO at OR [facility] Right: Shoulder [employer] 09/22/2023 107-4524 / / [id number] Humeral Cup 135/145 Degree, Standard, 36/+6 Implanted:Qty: 1 on 07/11/2022 by Sami Angelo DO at [facility] Right: Shoulder 02/21/2025 313-0706 / / [id number] Screw Locking 4.5mm 20mm - [id number] Implanted:Qty: 1 on 07/11/2022 by Sami Angelo DO at OR [facility] Right: Shoulder [employer] [...] Care Agent [phone] (Mobile) Care Teams Taker Out Relationship Specialty Start Date End Date Keagan Jalloh MD [address] [place] [phone] PCP - General Family Medicine 06/04/18 documented as of this encounter
--- OUTSIDE RECORDS SUMMARY | 2024-03-06 12:42 | External Medical Summary | Summary of Care ---
Author Name Unknown Organization [facility] Address [address] [facility] [place] [address] Phone [phone] Care Team Providers Care Special Library Librarian Name Role Phone Keagan Jalloh MD Primary Care Provider [phone] Reason for Visit * Reason Comments Medication Refill Encounter Details Date Type Department Care Team ([facility] st Contact Info) Description 09/25/[address] [phone] Keagan Jalloh MD [address] [place] [address] [phone] Allergies Active Allergy Reactions Criticality Noted Date [...] for Pain, Moderate. 90 Tablet 09/12/2023 Active Metoclopramide HCl 10 MG Oral Tablet (Reglan) TAKE ONE TABLET BY MOUTH THREE TIMES A DAY THIRTY MINUTES BEFORE MEALS 270 Tablet 09/26/2023 5 Active Metoclopramide HCl 10 MG Oral [...] hypothyroidism 04/12/2021 Coronary artery disease invo lving [place] coronary artery of [place] heart without angina pectoris 09/27/2020 S/P [...] 09/26/2023 1:23 PM EDTSigned Prescriptions: Disp Refills Metoclopramide HCl 10 MG Oral Tablet (Regl*270 Ta*0 Sig: TAKE ONE TABLET BY MOUTH THREE TIMES A DAY THIRTY MINUTES BEFORE MEALS Authorizing Provider: KEAGAN JALLOH * Telephone Encounter - Fiordaliza Sheridan LPN - 09/26/2023 10:52 AM EDTPending Prescriptions: Disp Refills Metoclopramide HCl 10 MG Oral Tablet (Regl*270 Ta*0 Sig: TAKE ONE TABLET BY MOUTH THREE TIMES A DAY THIRTY MINUTES BEFORE MEALS * Telephone Encounter - Fiordaliza Sheridan LPN - 09/26/2023 10:52 AM EDT 08/27/2023 (in office), Visit date not found (telemedicine) Next appt: 12/22/2023 Pending Prescriptions: Disp Refills Metoclopramide HCl 10 MG Oral Tablet (Reg*270 Ta*0 Sig: TAKE ONE TABLET BY MOUTH THREE TIMES A DAY THIRTY MINUTES BEFORE MEALS * Telephone Encounter - Alma Nixon - 09/25/2023 3:20 PM EDTPending Prescriptions: Disp Refills Metoclopramide HCl 10 MG Oral Tablet (Regl*270 Ta*0 Sig: TAKE ONE TABLET BY MOUTH THREE TIMES A DAY THIRTY MINUTES BEFORE MEALS documented in this encounter Plan of Treatment Upcoming Encounters Date Type Department Care Team ([facility] Contact Info) Description 10/02/2023 2:40 PM EDT Office Visit Dermatology [facility] [address] [place] [phone] Alden Ann PA-C [address] [place] [address] 10/03/2023 8:30 AM EDT Appointment Cardiac Studies [facility] [address] [place] [address] 11/19/2023 10:00 AM EDT Office Visit Nutrition & Weight Management, [facility] [address] [facility] [place] [address] Anai Schultz PA-C [address] [facility] [place] [address] 12/22/2023 1:40 PM EDT Office Visit Family Practice [facility] [address] [place] [phone] Keagan Jalloh MD [address] [place] [address] 08/09/2024 10:00 AM EDT Office Visit Orthopaedics Andrez Alejandre [address] [place] [address] Sami Angelo DO [address] [place] [address] Scheduled Procedures Name Priority Associated Diagnoses Date/Ti [...] D LEVEL ONCE IN A LIFETIME-USE SMARTSET# 95723 Completed 01/28/2022, 02/21/2015, 12/30/2011 RETIRED - COLONOSCOPY-EVERY [...] this encounter Medical Devices Implanted Type Area Computerized Machine Fabric Cutter Device Identifier Shelf Expiration Date Model / Serial / Lot Screw Jami Lacie 3 Ti Set - [id number] Implanted:Qty: 6 on 03/10/2012 at OR [facility] Bilateral: Spine Lumbar LEVON : SPINE [id number] / / Screw Lacie Pa Ti 6.5x50mm - [id number] Implanted:Qty: 4 on 03/10/2012 at OR [facility] Bilateral: Spine Lumbar LEVON : SPINE [id number] / / Motley Xia3 7.0 X 40mm Screws Implanted:Qty: 2 on 03/10/2012 at OR [facility] Bilateral: Spine Lumbar [id number] / / Shaun Lacie 3 Ti 6x70mm - [id number] Implanted:Qty: 1 on 03/10/2012 at OR [facility] N/A: Spine Lumbar LEVON : SPINE [id number] / / Shaun Lacie 3 Ti Max 6x80mm - [id number] Implanted:Qty: 1 on 03/10/2012 at OR [facility] N/A: Spine Lumbar LEVON : SPINE [id number] / / 9 X 25 X 4 - 8 Avs Wedge Nose Cage Implanted:Qty: 1 on 03/10/2012 at OR [facility] N/A: Spine Lumbar [id number] / / Stent Synergy Xd Mr 2.47s26ro - [id number] Implanted:Qty: 1 on 09/20/2020 at [facility] [employer] [id number] 04/18/2022 [id number] 220 / / [id number] Stent Synergy Xd Mr 2.14o22ab - [id number] Implanted:Qty: 1 on 09/20/2020 at [facility] [employer] [id number] 04/25/2022 [id number] 220 / / [id number] Screw Locking 4.5mm 15mm - [id number] Implanted:Qty: 1 on 07/11/2022 by Sami Angelo DO at OR [facility] Right: Shoulder [employer] 11/22/2025 108-4515 / / [id number] Bseplate Jasmeet Cmntlss W Scrw - [id number] Implanted:Qty: 1 on 07/11/2022 by Sami Angelo DO at OR [facility] Right: Shoulder [employer] 03/24/2027 105-0029 / / [id number] Glenosphere Rev Thee W Scrw - [id number] Implanted:Qty: 1 on 07/11/2022 by Sami Angelo DO at OR [facility] Right: Shoulder [employer] 04/24/2027 105-3610 / / [id number] Screw Locking 4.5mm 15mm - [id number] Implanted:Qty: 1 on 07/11/2022 by Sami Angelo DO at OR [facility] Right: Shoulder [employer] 03/24/2027 108-4515 / / [id number] Screw Locking 4.5mm 20mm - [id number] Implanted:Qty: 1 on 07/11/2022 by Sami Angelo DO at OR [facility] Right: Shoulder [employer] 03/24/2027 108-4520 / / [id number] Humelock Ii Stem Ta6v Size 12 Cementless Implanted:Qty: 1 on 07/11/2022 by Sami Angelo DO at OR [facility] Right: Shoulder [employer] 10/22/2026 311-0212 / / [id number] Cortical Screw Ta6v, 5mm, L. 24mm Implanted:Qty: 1 on 07/11/2022 by Sami Angelo DO at OR [facility] Right: Shoulder [employer] 09/22/2023 107-4524 / / [id number] Humeral Cup 135/145 Degree, Standard, 36/+6 Implanted:Qty: 1 on 07/11/2022 by Sami Angelo, DO at OR [facility] Right: Shoulder 02/21/2025 313-0706 / / [id number] Screw Locking 4.5mm 20mm - [id number] Implanted:Qty: 1 on 07/11/2022 by Sami Angelo, DO at OR [facility] Right: Shoulder [employer] 03/24/2027 108-4520 [...] Agents on File Name Relationship Healthcare Agent [facility] Communication Donny Wensel Spouse Health Care Agent Care Teams Special Library Librarian Relationship Specialty Start Date End Date Keagan Jalloh MD [address] [place] [address] [place] [address] PCP - General Family Medicine 06/04/18 documented as of this encounter
--- OUTSIDE RECORDS SUMMARY | 2024-03-06 12:42 | External Medical Summary | Summary of Care ---
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 Farmworker Name Role Phone Keagan Sanchez MD Primary Care Provider [phone] Reason for Visit * Reason Onset Date Comments Appointment 06/16/2023 Encounter Details Date Type Department Care Team ([facility] Contact Info) Description 06/16/[address] [address] Keagan Sanchez MD [address] [place] [address] Appointment Allergies Active Allergy Reactions Criticality Noted Date Comments Duloxetine Hcl Flushing,Nausea/vomi tin g High 10/20/2019 Erythromycin Base Rash 03/14/2004 Orlistat Low 03/31/2023 Other Reaction(s): GI UPSET Penicillins Rash 03/14/2004 Sulfa Antibiotics Rash 03/14/2004 documented as of this encounter (statuses as of 09/15/2023) Medications Medication Sig Dispensed Refills Start Date [...] MEDICATIONS 90 Tablet 1 06/03/2023 5 Active Sertraline HCl 100 MG Oral Tablet (Zoloft) Take 1.5 Tablets by mouth in the morning. 30 Tablet 5 09/09/2022 4 Discontinue d(Medicatio n List Clean Up) Metoprolol Succinate ER 25 MG Oral Tablet Extended Release 24 Hour (toPROL XL)Indications:Atr ial flutter, unspecified type (HCC) TAKE ONE TABLET BY MOUTH IN THE MORNING. 90 Tablet 3 09/09/2022 4 Discontinue d(Refill) Sucralfate 1 GM Oral Tablet (Carafate) TAKE ONE TABLET BY MOUTH IN THE MORNING AND TAKE ONE TABLET BEFORE BEDTIME 180 Tablet 3 07/05/2022 4 Discontinue d(Refill) Alendronate Sodium 70 MG Oral Tablet (Fosamax)Indicatio ns:Osteoporosis, unspecified osteoporosis type, unspecified pathological fracture presence Take 1 Tablet by mouth once a week. 12 Tablet 2 03/26/2023 4 Discontinue d(Medicatio n List Clean Up) Metoclopramide HCl 10 MG Oral Tablet (Reglan) TAKE ONE TABLET BY MOUTH THREE TIMES A DAY THIRTY MINUTES BEFORE MEALS 270 Tablet 03/28/2023 4 Discontinue d(Refill) Gabapentin 800 MG Oral Tablet (Neurontin)Indicat ions:DDD (degenerative disc disease), cervical TAKE ONE TABLET BY MOUTH THREE TIMES A DAY. DECREASE DOSE DIRECTED 270 Tablet 04/08/2023 4 Discontinue d(Refill) Baclofen 20 MG Oral Tablet TAKE ONE TABLET BY MOUTH FOUR TIMES A DAY (MORNING, NOON, EVENING AND BEDTIME) 360 Tablet 04/08/2023 4 Discontinue d(Refill) guaiFENesin-Codein e 100-10 MG/5ML Oral Syrup (Robitussin AC)Indications:Per sistent cough,Productive cough,Laryngitis Take 5 mL by mouth every 4 hours as needed for Cough. 120 mL 04/07/2023 Discontinue d(Patient preference/ discontinua tion) traMADol HCl 50 MG Oral Tablet (Ultram)Indication s:Postlaminectomy syndrome, lumbar Take 2 Tablets by mouth every 6 hours as needed for Pain, Moderate. 90 Tablet 05/27/2023 4 Discontinue d(Refill) documented as of this encounter (statuses as of 09/15/2023) Active Problems Problem Noted Date Diagnosed Date [...] as of this encounter (statuses as of 09/15/2023) Resolved Problems Problem Noted Date Diagnosed Date [...] as of this encounter (statuses as of 09/15/2023) Immunizations Name Administration Dates Next Due COVID-19 [...] deaf or do you have serious difficulty h earing? No 10/28/2022 Are you blind or do you have serious difficulty seeing, even when wearing glasses? No 10/28/2022 Do you have serious difficul ty walking or climbing stairs? (5 years old or older) No 10/28/2022 Do you have difficulty dress ing or bathing? (5 years old or older) No 10/28/2022 Because of a physical, menta l, or emotional condition, do you have difficulty doing errands alone such as visiting a doctor s office or shopping? (15 years old or older) No 10/29/19 Cognitive Status Response Date of Assessm ent Because of a physical, menta l, or emotional condition, do you have serious difficulty concentrating, remembering, or making decisions? (5 years old or older) No 10/28/2022 documented as of this encounter Miscellaneous Notes * Telephone Encounter - Yi Rabago OSA - 06/16/2023 3:12 PM EDT Please assist pt in scheduling a 3-day urgent EGD, thank you! documented in this encounter Plan of Treatment Upcoming Encounters Date Type Department Care Team ([facility] st Contact Info) Description 10/02/2023 2:40 PM EDT Office Visit Dermatology [facility] [address] [place] [phone] Alden Ann PA-C [address] [place] [address] 10/03/2023 8:30 AM EDT Appointment Cardiac Studies [facility], [facility] [address] [place] [address] 11/19/2023 10:00 AM EDT Office Visit Nutrition & Weight Management, [facility] [address] [place] [address] Anai Schultz PA-C [address] [place] [address] 12/22/2023 1:40 PM EDT Office Visit Family Practice [address] [phone] Keagan Sanchez MD [address] [place] [address] 08/09/2024 10:00 AM EDT Office Visit Orthopaedics Andrez Alejandre [address] [place] [address] Sami Angelo DO [address] [place] [address] Scheduled Procedures Name Priority Associated Diagnoses Date/Ti [...] D LEVEL ONCE IN A LIFETIME-USE SMARTSET# 22714 Completed 01/28/2022, 02/21/2015, 12/30/2011 RETIRED - COLONOSCOPY-EVERY [...] this encounter Medical Devices Implanted Type Area Diffuser Operator Device Identifier Shelf Expiration Date Model / Serial / Lot Screw Jami Lacie 3 Ti Set - [id number] Implanted:Qty: 6 on 03/10/2012 at [place] [facility] Bilateral: Spine Lumbar LEVON : SPINE [id number] / / Screw Lacie Pa Ti 6.5x50mm - [id number] Implanted:Qty: 4 on 03/10/2012 at OR [facility] Bilateral: Spine Lumbar LEVON : SPINE [id number] / / Levon Xia3 7.0 X 40mm Screws Implanted:Qty: 2 on 03/10/2012 at OR [facility] Bilateral: Spine Lumbar [id number] / / Shaun Lacie 3 Ti 6x70mm - [id number] Implanted:Qty: 1 on 03/10/2012 at [place] [facility] N/A: Spine Lumbar LEVON : SPINE [id number] / / Shaun Lacie 3 Ti Max 6x80mm - [id number] Implanted:Qty: 1 on 03/10/2012 at OR [facility] N/A: Spine Lumbar LEVON : SPINE [id number] / / 9 X 25 X 4 - 8 Avs Wedge Nose Cage Implanted:Qty: 1 on 03/10/2012 at OR [facility] N/A: Spine Lumbar [id number] / / Stent Synergy Xd Mr 2.55p96yn - [id number] Implanted:Qty: 1 on 09/20/2020 at [facility] [employer] [id number] 04/18/2022 [id number] 220 / / [id number] Stent Synergy Xd Mr 2.52u55vm - [id number] Implanted:Qty: 1 on 09/20/2020 at [facility] [employer] [id number] 04/25/2022 [id number] 220 / / [id number] Screw Locking 4.5mm 15mm - [id number] Implanted:Qty: 1 on 07/11/2022 by Sami Angelo DO at OR [facility] Right: Shoulder [employer] 11/22/2025 108-4515 / / [id number] Bseplate Jasmeet Cmntlss W Scrw - [id number] Implanted:Qty: 1 on 07/11/2022 by Sami Angelo DO at OR [facility] Right: Shoulder [employer] 03/24/2027 105-0029 / / [id number] [employer] Rev Thee W Scrw - [id number] Implanted:Qty: 1 on 07/11/2022 by Sami Angelo DO at OR [facility] Right: Shoulder [employer] 04/24/2027 105-3610 / / T1980 Screw Locking 4.5mm 15mm - [id number] Implanted:Qty: 1 on 07/11/2022 by Sami Angelo DO at [place] [facility] Right: Shoulder [employer] 03/24/2027 108-4515 / / [id number] Screw Locking 4.5mm 20mm - [id number] Implanted:Qty: 1 on 07/11/2022 by Sami Angelo DO at OR [facility] Right: Shoulder [employer] 03/24/2027 108-4520 / / [id number] Humelock Ii Stem Ta6v Size 12 Cementless Implanted:Qty: 1 on 07/11/2022 by Sami Angelo DO at [place] [facility] Right: Shoulder [employer] 10/22/2026 311-0212 / / [id number] Cortical Screw Ta6v, 5mm, L. 24mm Implanted:Qty: 1 on 07/11/2022 by Sami Angelo DO at [place] [facility] Right: Shoulder [employer] 09/22/2023 107-4524 / / [id number] Humeral Cup 135/145 Degree, Standard, 36/+6 Implanted:Qty: 1 on 07/11/2022 by Sami Angelo DO at [place] [facility] Right: Shoulder 02/21/2025 313-0706 / / [id number] Screw Locking 4.5mm 20mm - [id number] Implanted:Qty: 1 on 07/11/2022 by Sami Angelo, at [place] [facility] Right: Shoulder [employer] 03/24/2027 108-4520 / / [id number] documented as of this encounter Additional Health Concerns Infection Onset Date Last Indicated Resolved Time Respiratory Rule-Out 07/18/2023 07/18/2023 024 10:08 AM EDT COVID-19 Rule-Out 07/18/2023 07/18/2023 07/18/2023 10:08 AM EDT documented as of this encounter Advance Directives [...] Pace Spouse Health Care Agent Care Teams Crop Or Grain Farmworker Relationship Specialty Start Date End Date Keagan Sanchez MD [address] [place] [id number] PCP - General Family Medicine 06/04/18 documented as of this encounter
--- OUTSIDE RECORDS SUMMARY | 2024-03-06 12:42 | External Medical Summary | Summary of Care ---
Author Name Unknown Organization [facility] Address [address] [facility] [place] [address] Phone [phone] Care Team Providers Care Senior Net Architect Name Role Phone Keagan Jalloh MD Primary Care Provider [phone] Reason for Visit * Reason Onset Date Comments Medication Refill 09/10/2023 Encounter Details Date Type Department Care Team ([facility] st Contact Info) Description 09/10/[address] [phone] Keagan Jalloh MD [address] [place] [id number] Postlaminectomy syndrome, lumbar Allergies Active Allergy Reactions [...] for Pain, Moderate. 90 Tablet 09/12/2023 Active traMADol HCl 50 MG [...] hypothyroidism 04/12/2021 Coronary artery disease invo lving viejas coronary artery of viejas heart without angina pectoris 09/27/2020 S/P angioplasty [...] Encounter - Keagan Jalloh MD - 09/12/2023 9:45 AM EDTSigned Prescriptions: Disp Refills traMADol HCl 50 MG Oral Tablet (Ultram) 90 Tab*0 Sig: Take 2 Tablets by mouth every 6 hours as needed for Pain, Moderate. Authorizing Provider: KEAGAN JALLOH * Telephone Encounter - Mala Pineda [facility] - 09/11/2023 10:44 AM EDT Pending Prescriptions: Disp Refills traMADol HCl 50 MG Oral Tablet (Ultram) 90 Tab*0 Sig: Take 2 Tablets by mouth every 6 hours as needed for Pain, Moderate. * Telephone Encounter - Mala Pineda [facility] - 09/11/2023 10:44 AM EDT I have reviewed the patients controlled substance dispensing history in the Prescription Drug Monitoring Program in compliance with the [facility] regulations before prescribing a controlled substance. PDMP checked on 09/11/2023. Pending Prescriptions: Disp Refills traMADol HCl 50 MG Oral Tablet (Ultram) 90 Tab*0 Sig: Take 2 Tablets by mouth every 6 hours as needed for Pain, Moderate. Last Visit: 08/27/2023 (in office), Visit date not found (telemedicine) Next Visit: 12/22/2023 Date medication was last filled: 08/18 Date medication is due for refill: 08/30 Pharmacy: [id number] [facility] Is this request for a controlled [...] Results Review. Please approve if appropriate. Thank you, Diane SantiagoD. Clinical Pharmacist [facility] ([facility]) 09/11/2023, 10:44 AM documented in this encounter Plan of Treatment Upcoming Encounters Date Type Department Care Team (Late st Contact Info) Description 09/12/2023 9:38 AM EDT Hospital Encounter Radiology, [facility] [address] [place] [address] Arrived 10/02/2023 2:40 PM EDT Office Visit Dermatology [facility] [address] [place] [phone] Alden Ann PA-C [address] [place] [address] 10/03/2023 8:30 AM EDT Appointment Cardiac Studies 1st Fl, [facility] [address] [place] [address] 11/19/2023 10:00 AM EDT Office Visit Nutrition & Weight Management, [facility] [address] [place] [address] Anai Schultz PA-C [address] [place] [address] 12/22/2023 1:40 PM EDT Office Visit Family [facility] [address] [place] [phone] Keagan Jalloh MD [address] [place] [address] 08/09/2024 10:00 AM EDT Office Visit [facility]ed[facility] [address] [place] [address] Sami Angelo DO [address] [place] [address] Scheduled Procedures Name Priority Associated Diagnoses Date/Ti [...] D LEVEL ONCE IN A LIFETIME-USE SMARTSET# 55450 Completed 01/28/2022, 02/21/2015, 12/30/2011 RETIRED - COLONOSCOPY-EVERY [...] encounter Medical Devices Implanted Type Area Business Consult Device Identifier Shelf Expiration Date Model / Serial / Lot Screw Jami Lacie 3 Ti Set - [id number] [place]:Q[place] 6 [place]10[place] [facility] [place]: Spine Lumbar LEVON : SPINE [id number] / / Screw Lacie Pa Ti 6.5x50mm - [id number] Implanted:Qty: 4 on 03/10/2012 [place] [facility] [place]ilateral: Spine Lumbar LEVON : SPINE [id number] / / Levon Xia3 7.0 X 40mm Screws Implanted:Qty: 2 on 03/10/2012 at [facility] Bilateral: Spine Lumbar [id number] / / Shaun Lacie 3 Ti 6x70mm - [id number] Implanted:Qty: 1 on 03/10/2012 [place] [facility] [place]/A: Spine Lumbar LEVON : SPINE [id number] / / Shaun Lacie 3 Ti Max 6x80mm - [id number] Implanted:Qty: 1 on 03/10/2012 [place] [facility] [place]/A: Spine Lumbar LEVON : SPINE [id number] / / 9 X 25 X 4 - 8 Avs Wedge Nose Cage Implanted:Qty: 1 on 03/10/2012 [place] [facility] [place]/A: Spine Lumbar [id number] / / Stent Synergy Xd Mr 2.78k03sr - [id number] Implanted:Qty: 1 on 09/20/2020 at [facility] Candid io [id number] 04/18/2022 [id number] 220 / / [id number] Stent Synergy Xd Mr 2.16o81ju - [id number] Implanted:Qty: 1 on 09/20/2020 at [facility] Candid io [id number] 04/25/2022 [id number] 220 / / [id number] Screw Locking 4.5mm 15mm - [id number] Implanted:Qty: 1 on 07/11/2022 by Sami Angelo DO [place] [facility] Right: Shoulder [employer] 11/22/2025 108-4515 / / [id number] Bseplate Jasmeet Cmntlss W Scrw - [id number] Implanted:Qty: 1 on 07/11/2022 by Sami Angelo DO at [facility] Right: Shoulder [employer] 03/24/2027 105-0029 / / [id number] Glenosphere Rev Thee W Scrw - [id number] Implanted:Qty: 1 on 07/11/2022 by Sami Angelo DO [place] [facility] Right: Shoulder [employer] 04/24/2027 105-3610 / / [id number] Screw Locking 4.5mm 15mm - [id number] Implanted:Qty: 1 on 07/11/2022 by Sami Angelo DO at [place] [facility] Right: Shoulder [employer] 03/24/2027 108-4515 / / [id number] Screw Locking 4.5mm 20mm - [id number] Implanted:Qty: 1 on 07/11/2022 by Sami Angelo DO [place] [facility] [place]: Shoulder [employer] 03/24/2027 [id number] / / [id number] Humelock Ii Stem Ta6v Size 12 Cementless Implanted:Qty: 1 on 07/11/2022 by Sami Angelo DO [place] [facility]: Shoulder [employer] 10/22/2026 [id number] / / [id number] Cortical Screw Ta6v, 5mm, L. 24mm Implanted:Qty: 1 on 07/11/2022 by Sami Angelo DO at [place] [facility] Right: Shoulder [employer] 09/22/2023 107-4524 / / [id number] Humeral Cup 135/145 Degree, Standard, 36/+6 Implanted:Qty: 1 on 07/11/2022 by Sami Angelo DO [place] [facility]: Shoulder 02/21/2025 [id number] / / [id number] Screw Locking 4.5mm 20mm - [id number] Implanted:Qty: 1 on 07/11/2022 by Sami Angelo DO at [place] [facility] [place]: Shoulder [employer] 03/24/2027 108-4520 / / [id number] documented as of this encounter Visit Diagnoses Diagnosis Postlaminectomy syndrome, lumbar Postlaminectomy syndrome, lumbar region Shortness of breath Coronary artery disease involving viejas coronary artery of viejas heart without angina pectoris documented in this [...] Agents on File Name Relationship Healthcare Agent Counts [facility] Donny Pace Spouse Health Care Agent Care Teams Senior Net Architect Relationship Specialty Start Date End Date Keagan Jalloh MD [address] [place] [phone] PCP - General Family Medicine 06/04/18 documented as of this encounter
--- NOTE | 2024-03-06 14:28 | Hospitalist Progress Note ---
Date of Service March 06, 2024 Assessment & Plan (1) Fall: (2) Pathological fracture of right hip due to age-related osteoporosis: (3) Fracture of right olecranon process: (4) CAD (coronary artery disease): Plan 63 yr old F who has a significant PMH of CAD with hx of coronary stent, HTN, HLD, hx of atrial flutter, Pre DM, Hypothyroidism, Gastroparesis, chronic superficial gastritis, Gerd, Osteoporosis, Depression with anxiety, DDD, neurostimulator device in situ who presents to ED after sustaining a fall. Mechanical Fall Pathologic fx of R hip due to age related osteoporosis Fracture of R olecranon process Right elbow x-ray with avulsion fracture of olecranon process. Hip x-ray with right comminuted intertrochanteric fracture with displacement. Continue with pain management, bowel regimen. s/p Intermedullary Shaun for Trochanteric Fracture- Right 03/05 Orthopedics on board, appreciate recommendation. f/u ortho on dc Continue ASA and metoprolol. Lovenox for dvt px. Monitor HnH. CA, hx of LIZBETH x 3 HTN HLD follows [facility] Cards on asa, statin, metoprolol, amlodipine, statin no CP or SOB, admitting ecg reviewed w/o ischemic change Chronic Back pain/hx of lumbar surgery/neurostimulator device insitu: chronic pain management Pre DM: a1c 6.0, hold metformin, no indication for ISS at this time Hypothyroidism: continue levothyroxine Gastroparesis/Chronic superficial gastritis: continue PPI, sucralfate, reglan DVT ppx: lovenox. FULL CODE PCP: Dr. Keagan Snachez Dispo: admit to medical Admission and Anticipated Discharge Date Admission Date: March 04, 2024 Subjective Patient was seen and examined at bedside. Patient was lying in bed, on room air, reports pain at operative site, bearable w/ pain meds. Patient states eating ok, hasnot moved bowel. Patient denies any recent febrile illness or shortness of breath or chest pain or flulike illness. Physical Exam Physical Exam: General Appearance: Obese, mild distress secondary to pain Head: normocephalic, Atraumatic Eyes: normal inspection, EOMI Neck: supple, Trachea midline Respiratory/Chest: Normal breath sounds, CTA, No accessory muscle use Cardiovascular: S1, S2, No murmur Abdomen/GI:Soft, Non tender, Bowel sounds present Extremities/Musculoskeletal:normal inspection, Trace, edema, right hip dressing w/ no soakage. Neurologic/Psych:AAOX3, grossly no focal neurological deficits Skin: normal color, warm Results & Data Results & Data Vital Signs (Past 12 Hours) Vital Signs Temp Pulse Pulse Resp BP Pulse Ox O2 Del Method 03/06/24 12:03 36.9 C 82 16 100/62 97 Nasal Cannula 03/06/24 07:58 37.1 C 86 16 118/71 98 Nasal Cannula 03/06/24 03:03 36.6 C 76 16 107/69 97 Nasal Cannula O2 Flow Rate 03/06/24 12:03 2 03/06/24 07:58 2 03/06/24 03:03 2
--- NOTE | 2024-03-06 16:15 | Orthopedic Progress Note ---
Date of Service March 06, 2024 Assessment & Plan (1) Fracture, subtrochanteric, right femur, closed: Plan: PT/OT WBAT RLE For RUE, she can partial WB to use a walker DVT prophylaxis and pain medication per internal medicine Case management Follow-up 1 week after surgery in ortho clinic. Plan on transitioning her to a hinged elbow brace for the RUE at that time. (2) Fracture of olecranon process, right, closed: Admission and Anticipated Discharge Date Admission Date: March 04, 2024 Subjective Postop day 1 following right intramedullary nail for comminuted displaced intertrochanteric femur fracture and excision of right comminuted olecranon fracture with triceps tendon advancement And placement into a long-arm plaster cast. Patient reports she is uncomfortable with any kind of movement. Her spine stimulator cannot be charged because of positioning issues. However she reports her back pain is at her baseline. Denies numbness or tingling in her right upper or lower extremities. Physical Exam Physical Exam: Right lower extremity exam reveals her dressings to be clean dry and intact. Distally neurovascularly intact. Sensation intact to light touch over the dorsal and plantar aspects of the foot and toes are warm and well-perfused. Right upper extremity exam reveals the cast to be in place with her elbow held in extension. Exposed fingers are warm and well-perfused. She is sensory intact light touch median ulnar and radial nerve distributions. Results & Data Vital Signs (Past 12 Hours) Vital Signs Temp Pulse Resp BP Pulse Ox O2 Del Method O2 Flow Rate 03/06/24 16:00 37.7 C H 86 17 98/64 L 97 Nasal Cannula 1.5 03/06/24 12:03 36.9 C 82 16 100/62 97 Nasal Cannula 2 03/06/24 07:58 37.1 C 86 16 118/71 98 Nasal Cannula 2
[2024-03-06] MEDS: FAMOTIDINE 20 MG TAB PO PRN (20:11)
[2024-03-07 07:24] LABS: Hematocrit (blood only) 23.3 % (37.0-47.0); Hemoglobin 7.4 g/dl (12.0-16.0); Mean Corpuscular Hemoglobin 27.4 pg (25.0-34.0); Mean Corpuscular Hgb Conc 31.8 g/dL (32.0-36.0); Mean Corpuscular Volume 86.3 fL (80.0-100.0); Platelet Count 140 K/uL (130-400); RDW Coefficient of Variation 14.6 % (11.5-14.5); RDW Standard Deviation 45.5 fL (36.4-46.3); White Blood Count 5.53 K/ul (4.8-10.8)
[2024-03-07 07:43] LABS: BUN Creatinine Ratio 15.8 (10-20); Calcium 8.2 mg/dl (8.6-10.3); Creatinine Clr Calc Pharmacy 107.6 ml/min; Potassium 4.1 mmol/L (3.5-5.1)
[2024-03-07] MEDS ORDERED: SODIUM CHLORIDE 0.9% 100 ML IV PRN (08:38)
[2024-03-07] MEDS ORDERED: SODIUM CHLORIDE 0.9% 50 ML IV PRN (08:38)
[2024-03-07] MEDS: ACETAMINOPHEN 325 MG TAB PO SCH (10:35)
--- NOTE | 2024-03-07 11:35 | Hospitalist Progress Note ---
Date of Service March 07, 2024 Assessment & Plan (1) Fall: (2) Pathological fracture of right hip due to age-related osteoporosis: (3) Fracture of right olecranon process: (4) CAD (coronary artery disease): Plan 63 yr old F who has a significant PMH of CAD with hx of coronary stent, HTN, HLD, hx of atrial flutter, Pre DM, Hypothyroidism, Gastroparesis, chronic superficial gastritis, Gerd, Osteoporosis, Depression with anxiety, DDD, neurostimulator device in situ who presents to ED after sustaining a fall. Mechanical Fall Pathologic fx of R hip due to age related osteoporosis Fracture of R olecranon process Right elbow x-ray with avulsion fracture of olecranon process. Hip x-ray with right comminuted intertrochanteric fracture with displacement. Continue with pain management, bowel regimen. s/p Intermedullary Shaun for Trochanteric Fracture- Right 03/05 Right Excision Comminuted Olecranon Fracture, Triceps Tendon Advancement 03/05. RUE In cast. RUE - partial WB to use a walker Orthopedics on board, appreciate recommendation. f/u ortho on dc Continue ASA and metoprolol. Lovenox for dvt px. Acute blood loss anemia: Baseline hb around 12, blood loss 2/2 fracture and operative loss. HnH 7.4 today, will transfuse 1 unit prbc and f/u w/ HnH after transfusion is done. CA, hx of LIZBETH x 3 HTN HLD follows [facility] Cards on asa, statin, metoprolol, amlodipine, statin no CP or SOB, admitting ecg reviewed w/o ischemic change Chronic Back pain/hx of lumbar surgery/neurostimulator device insitu: chronic pain management Pre DM: a1c 6.0, hold metformin, no indication for ISS at this time Hypothyroidism: continue levothyroxine Gastroparesis/Chronic superficial gastritis: continue PPI, sucralfate, reglan DVT ppx: lovenox. FULL CODE PCP: Dr. Keagan Sanchez Dispo: admit to medical Admission and Anticipated Discharge Date Admission Date: March 04, 2024 Subjective Patient was seen and examined at bedside. Patient was lying in bed, on room air, reports pain at operative site, pain is slightly increased more, pt w/ multiple prn pain meds. Patient states eating ok, hasnot moved bowel. Patient denies any recent febrile illness or shortness of breath or chest pain or flulike illness. Physical Exam Physical Exam: General Appearance: Obese, mild distress secondary to pain Head: normocephalic, Atraumatic Eyes: normal inspection, EOMI Neck: supple, Trachea midline Respiratory/Chest: Normal breath sounds, CTA, No accessory muscle use Cardiovascular: S1, S2, No murmur Abdomen/GI:Soft, Non tender, Bowel sounds present Extremities/Musculoskeletal:normal inspection, Trace, edema, right hip dressing w/ no soakage. RUE in cast. Distal NV status wnl. Neurologic/Psych:AAOX3, grossly no focal neurological deficits Skin: normal color, warm Results & Data Results & Data Vital Signs (Past 12 Hours) Vital Signs Temp Pulse Pulse Resp BP BP Pulse Ox 03/07/24 10:43 37.2 C 80 16 113/69 98 03/07/24 10:14 36.8 C 78 16 109/71 98 03/07/24 09:59 37.3 C 80 16 108/70 97 03/07/24 09:44 37.2 C 81 16 118/75 98 03/07/24 07:10 37.1 C 89 17 113/72 97 O2 Del Method O2 Flow Rate 03/07/24 10:43 1.1 03/07/24 10:14 2 03/07/24 09:59 2 03/07/24 09:44 2 03/07/24 07:10 Nasal Cannula 1.1
[2024-03-07] MEDS: LACTULOSE SYRUP 20 GM/30 ML UDC PO ONE (11:50)
[2024-03-07 15:35] LABS: Hematocrit (blood only) 28.2 % (37.0-47.0); Hemoglobin 9.2 g/dl (12.0-16.0)
[2024-03-08 09:55] LABS: Hemoglobin 8.4 g/dl (12.0-16.0); Mean Corpuscular Hgb Conc 32.3 g/dL (32.0-36.0); Mean Corpuscular Volume 86.7 fL (80.0-100.0); Mean Platelet Volume 9.7 fL (9.4-12.4); Platelet Count 141 K/uL (130-400); RDW Coefficient of Variation 15.1 % (11.5-14.5); RDW Standard Deviation 47.5 fL (36.4-46.3); White Blood Count 4.56 K/ul (4.8-10.8)
--- NOTE | 2024-03-08 11:37 | Orthopedic Progress Note ---
Date of Service March 08, 2024 Assessment & Plan (1) Fracture, subtrochanteric, right femur, closed: Plan: PT/OT WBAT RLE with walker Elevate right upper and lower extremity For RUE, she can partial WB to use a walker DVT prophylaxis and pain medication per internal medicine Case management Follow-up 1 week after surgery in ortho clinic. Plan on transitioning her to a hinged elbow brace for the RUE at that time. (2) Fracture of olecranon process, right, closed: Admission and Anticipated Discharge Date Admission Date: March 04, 2024 Supervising Physician Co-Signing Physician Notes Agree with above note. Will get femur x-rays given her pain level. Subjective Pt seen and examined bedside. She says that she is having a lot of pain. She has been unable to get out of bed due to pain. Physical Exam Physical Exam: RUE: Pt is in plaster cast, fitting appropriately. She is able to wiggle all of her fingers. Sensation to light touch in tact. RLE: Patient is able to DF/PF her ankle and feel sensation to light touch. She is unable to bend her knee. She is unable to tolerate an movement of her hip. Dressings are C/D/I. Due to pts pain today dressings were left in place. Thigh and calf soft and compressible. Results & Data Vital Signs (Past 12 Hours) Vital Signs Temp Pulse Resp BP Pulse Ox O2 Del Method O2 Flow Rate 03/08/24 07:45 Nasal Cannula 2 03/08/24 05:35 36.6 C 75 16 117/75 97 Room Air
--- NOTE | 2024-03-08 12:07 | Hospitalist Progress Note ---
Date of Service March 08, 2024 Assessment & Plan (1) Fall: (2) Pathological fracture of right hip due to age-related osteoporosis: (3) Fracture of right olecranon process: (4) CAD (coronary artery disease): Plan 63 yr old F who has a significant PMH of CAD with hx of coronary stent, HTN, HLD, hx of atrial flutter, Pre DM, Hypothyroidism, Gastroparesis, chronic superficial gastritis, Gerd, Osteoporosis, Depression with anxiety, DDD, neurostimulator device in situ who presents to ED after sustaining a fall. Mechanical Fall Pathologic fx of R hip due to age related osteoporosis Fracture of R olecranon process Right elbow x-ray with avulsion fracture of olecranon process. Hip x-ray with right comminuted intertrochanteric fracture with displacement. Continue with aggressive pain management, bowel regimen. Pt reports operative site pain not effectively controlled, if not control despite multiple pain meds, consider pain Mx. s/p Intermedullary Shaun for Trochanteric Fracture- Right 03/05 Right Excision Comminuted Olecranon Fracture, Triceps Tendon Advancement 03/05. RUE In cast. RUE - partial WB to use a walker Orthopedics on board, appreciate recommendation. f/u ortho on dc Continue ASA and metoprolol. Lovenox for dvt px. Acute blood loss anemia: Baseline hb around 12, blood loss 2/2 fracture and operative loss. HnH 7.4 03/07, s/p 1 unit prbc on 03/07. Closely monitor HnH for transfusion needs. CA, hx of LIZBETH x 3 HTN HLD follows [facility] Cards on asa, statin, metoprolol, amlodipine, statin no CP or SOB, admitting ecg reviewed w/o ischemic change Chronic Back pain/hx of lumbar surgery/neurostimulator device insitu: chronic pain management Pre DM: a1c 6.0, hold metformin, no indication for ISS at this time Hypothyroidism: continue levothyroxine Gastroparesis/Chronic superficial gastritis: continue PPI, sucralfate, reglan DVT ppx: lovenox. FULL CODE PCP: Dr. Keagan Sanchez Dispo: admit to medical Admission and Anticipated Discharge Date Admission Date: March 04, 2024 Subjective Patient was seen and examined at bedside. Patient was lying in bed, on room air, reports pain at operative site, pain is slightly increased more, pt w/ multiple prn pain meds. continue pain Mx. Patient states eating ok, reports moving bm yesterday. Patient denies any recent febrile illness or shortness of breath or chest pain or flulike illness. Physical Exam Physical Exam: General Appearance: Obese, NAD on 2L NC O2 Head: normocephalic, Atraumatic Eyes: normal inspection, EOMI Neck: supple, Trachea midline Respiratory/Chest: Normal breath sounds, CTA, No accessory muscle use Cardiovascular: S1, S2, No murmur Abdomen/GI:Soft, Non tender, Bowel sounds present Extremities/Musculoskeletal:normal inspection, Trace, edema, right hip dressing w/ no soakage. RUE in cast. Distal NV status wnl. Neurologic/Psych:AAOX3, grossly no focal neurological deficits Skin: normal color, warm Results & Data Results & Data Vital Signs (Past 12 Hours) Vital Signs Temp Pulse Resp BP Pulse Ox O2 Del Method O2 Flow Rate 03/08/24 07:45 Nasal Cannula 2 03/08/24 05:35 36.6 C 75 16 117/75 97 Room Air
--- NOTE | 2024-03-08 14:12 | XRay Report ---
XR femur RT 2V routine HISTORY: 63 years-old Female s/p IM nail, patient having a lot of pain acute fracture of the right f emur COMPARISON: 03/04/2024 TECHNIQUE: 2 views of the right femur FINDINGS: Intertrochanteric nail with medullary jordan fixates the acute intertrochanteric fracture with lateral s kin brittanie. Expected postoperative soft tissue swelling with deep tissue air. IMPRESSION: Fluoroscopic assistance as above. ACT 112: Negative or not required by law. The above report was generated using voice recognition software. It may contain grammatical, syntax o r spelling errors. Electronically signed by: James Leonard M.D. 03/08/2024 2:11 PM
[2024-03-08] MEDS ORDERED: COUGH DROP (SUGAR FREE) LOZ 24 LOZ/1 BOX BUCCAL PRN (14:48)
[2024-03-08 21:37] LABS: Hematocrit (blood only) 26.1 % (37.0-47.0); Hemoglobin 8.6 g/dl (12.0-16.0)
[2024-03-09 08:05] LABS: Hematocrit (blood only) 25.1 % (37.0-47.0); Hemoglobin 8.3 g/dl (12.0-16.0); Mean Corpuscular Hemoglobin 28.7 pg (25.0-34.0); Mean Corpuscular Hgb Conc 33.1 g/dL (32.0-36.0); Mean Corpuscular Volume 86.9 fL (80.0-100.0); Mean Platelet Volume 9.5 fL (9.4-12.4); Platelet Count 163 K/uL (130-400); RDW Coefficient of Variation 14.4 % (11.5-14.5); Red Blood Count 2.89 M/uL (4.20-5.40); White Blood Count 4.43 K/ul (4.8-10.8)
[2024-03-09 08:25] LABS: BUN Creatinine Ratio 16.1 (10-20); Calcium 8.4 mg/dl (8.6-10.3); Creatinine Clr Calc Pharmacy 109.5 ml/min; Magnesium 1.9 mg/dl (1.7-2.4)
--- NOTE | 2024-03-09 10:21 | Orthopedic Progress Note ---
Date of Service March 09, 2024 Assessment & Plan (1) Fracture, subtrochanteric, right femur, closed: Plan: Postop day #4 status post intramedullary jordan for displaced, comminuted right intertrochanteric femur fracture with subtrochanteric extension. Dressing change performed today on all 3 incisions. Scant bloody drainage from the proximal aspect of the proximal incision but no dehiscence noted. Dressing changes can be performed as needed now. Patient seen by physical therapy and Occupational Therapy yesterday and snf/rehab was recommended. Agree with this given patient's discomfort. Repeat femur x-ray obtained yesterday demonstrating expected postoperative findings with no fracture or dislocation. Continue PT/OT. Weightbearing as tolerated with walker. DVT prophylaxis and pain medication per internal medicine. Case management. Follow-up appointment scheduled and listed in discharge tab (2) Fracture of olecranon process, right, closed: Plan: Postop day #4 status post excision of displaced, comminuted right olecranon fracture, triceps tendon advancement Neurovascularly intact. No significant pain appreciated in the right upper extremity. Can partial weight-bear using walker. Elevate and ice. Additional follow-up appointment scheduled for the olecranon fracture, in discharge tab. Will transition to a hinged elbow brace at that time. Admission and Anticipated Discharge Date Admission Date: March 04, 2024 Subjective Patient seen in bed this morning. She reports ongoing pain in the right hip. She had repeat x-rays of her femur yesterday. Denies any significant pain at the right upper extremity. She is able to wiggle her fingers and her toes and denies any numbness or tingling in either of these extremities. Physical Exam Constitutional: Resting comfortably in bed at rest. Some discomfort appreciated when moving the patient. Musculoskeletal: Right upper extremity: Plaster splint is in place, intact. Able to move all fingers including thumb Right lower extremity: 3 dressings are intact along the hip and lateral thigh. Minimal dried blood on the proximal dressing. Dressings removed shows intact incisions with brittanie in place and no surrounding erythema. Scant bloody drainage noted from the proximal aspect of the proximal incision however there is no dehiscence. Mild amount of soft tissue swelling in the proximal posterior thigh, nontender. Buttock is soft and not tender with no induration. Pain elicited in the hip with gentle passive range of motion. Moves all toes without difficulty. Ankle plantarflexion, dorsiflexion, inversion and eversion 5/5. Skin: [place], warm, dry Neurologic: Sensory deficits in right upper and right lower extremity to light touch Results & Data Vital Signs (Past 12 Hours) Vital Signs Temp Pulse Resp BP Pulse Ox O2 Del Method O2 Flow Rate 03/09/24 07:04 98.2 F 79 16 126/78 99 Nasal Cannula 2 Diagnostic Findings ADDENDUM Gui Shanel requested an addendum. IMPRESSION: Postoperative changes as above. Electronically signed by: James Leonard M.D. 03/09/2024 8:46 AM Femur X-Ray 03/08/24 12:12 XR femur RT 2V routine HISTORY: 63 years-old Female s/p IM nail, patient having a lot of pain acute fracture of the right femur COMPARISON: 03/04/2024 TECHNIQUE: 2 views of the right femur FINDINGS: Intertrochanteric nail with medullary jordan fixates the acute intertrochanteric fr acture with lateral skin brittanie. Expected postoperative soft tissue swelling with deep tissue air. IMPRESSION: Fluoroscopic assistance as above. ACT 112: Negative or not required by law. The above report was generated using voice recognition software. It may contain grammatical, syntax or spelling errors. Electronically signed by: James Leonard M.D. 03/08/2024 2:11 PM
--- NOTE | 2024-03-09 15:27 | Hospitalist Progress Note ---
Date of Service March 09, 2024 Assessment & Plan (1) Fall: (2) Pathological fracture of right hip due to age-related osteoporosis: (3) Fracture of right olecranon process: (4) CAD (coronary artery disease): Plan 63 yr old F who has a significant PMH of CAD with hx of coronary stent, HTN, HLD, hx of atrial flutter, Pre DM, Hypothyroidism, Gastroparesis, chronic superficial gastritis, Gerd, Osteoporosis, Depression with anxiety, DDD, neurostimulator device in situ who presents to ED after sustaining a fall. Mechanical Fall Pathologic fx of R hip due to age related osteoporosis Fracture of R olecranon process Right elbow x-ray with avulsion fracture of olecranon process. Hip x-ray with right comminuted intertrochanteric fracture with displacement. Continue with aggressive pain management, bowel regimen. Pt reports operative site pain still significant but appears it is improving gradually as appreciated on daily exam, if not control despite multiple pain meds, consider pain Mx. s/p Intermedullary Shaun for Trochanteric Fracture- Right 03/05 Right Excision Comminuted Olecranon Fracture, Triceps Tendon Advancement 03/05. RUE In cast. RUE - partial WB to use a walker Orthopedics on board, appreciate recommendation. f/u ortho on dc Continue ASA and metoprolol. Lovenox for dvt px. Acute blood loss anemia: Baseline hb around 12, blood loss 2/2 fracture and operative loss. HnH 7.4 03/07, s/p 1 unit prbc on 03/07. Closely monitor HnH for transfusion needs. currently HnH stable. CA, hx of LIZBETH x 3 HTN HLD follows [facility] Cards on asa, statin, metoprolol, amlodipine, statin no CP or SOB, admitting ecg reviewed w/o ischemic change Chronic Back pain/hx of lumbar surgery/neurostimulator device insitu: chronic pain management Pre DM: a1c 6.0, hold metformin, no indication for ISS at this time Hypothyroidism: continue levothyroxine Gastroparesis/Chronic superficial gastritis: continue PPI, sucralfate, reglan DVT ppx: lovenox. FULL CODE PCP: Dr. Keagan Sanchez Dispo: pt/ot, will need rehab. Admission and Anticipated Discharge Date Admission Date: March 04, 2024 Subjective Patient was seen and examined at bedside. Patient was lying in bed, on room air, reports pain at operative site, appears pain gradually better on a day to day basis, pt w/ multiple prn pain meds. continue pain Mx. Patient states eating ok, reports moving bm 2 d ago, c/w bowel regimen. Patient denies any recent febrile illness or shortness of breath or chest pain or flulike illness. Physical Exam Physical Exam: General Appearance: Obese, NAD on 2L NC O2 Head: normocephalic, Atraumatic Eyes: normal inspection, EOMI Neck: supple, Trachea midline Respiratory/Chest: Normal breath sounds, CTA, No accessory muscle use Cardiovascular: S1, S2, No murmur Abdomen/GI:Soft, Non tender, Bowel sounds present Extremities/Musculoskeletal:normal inspection, Trace, edema, right hip dressing w/ no soakage. RUE in cast. Distal NV status wnl. Neurologic/Psych:AAOX3, grossly no focal neurological deficits Skin: normal color, warm Results & Data Results & Data Vital Signs (Past 12 Hours) Vital Signs Temp Pulse Resp BP Pulse Ox O2 Del Method O2 Flow Rate 03/09/24 15:13 36.7 C 85 16 96/57 L 97 Nasal Cannula 2 03/09/24 07:30 Nasal Cannula 2 03/09/24 07:04 36.8 C 79 16 126/78 99 Nasal Cannula 2
[2024-03-10 04:31] LABS: Hematocrit (blood only) 25.4 % (37.0-47.0); Hemoglobin 8.3 g/dl (12.0-16.0); Mean Corpuscular Hemoglobin 28.4 pg (25.0-34.0); Mean Corpuscular Hgb Conc 32.7 g/dL (32.0-36.0); Mean Platelet Volume 9.6 fL (9.4-12.4); Platelet Count 189 K/uL (130-400); RDW Coefficient of Variation 14.4 % (11.5-14.5); RDW Standard Deviation 45.2 fL (36.4-46.3); Red Blood Count 2.92 M/uL (4.20-5.40); White Blood Count 4.91 K/ul (4.8-10.8)
--- NOTE | 2024-03-10 09:47 | Orthopedic Progress Note ---
Date of Service March 10, 2024 Assessment & Plan (1) Fracture, subtrochanteric, right femur, closed: Plan: Postop day #5 status post intramedullary jordan for displaced, comminuted right intertrochanteric femur fracture with subtrochanteric extension. Patient much improved today compared to yesterday. Participated with physical therapy, was out of bed and into the chair. Will be [facility] today or tomorrow. Dressings are clean and dry today. Left in place. These can be changed on an as-needed basis. Continue PT/OT. Weightbearing as tolerated with walker. DVT prophylaxis and pain medication per internal medicine. Reminded nursing staff SCDs should be in place. These were reapplied. Case management. Follow-up appointment scheduled and listed in discharge tab (2) Fracture of olecranon process, right, closed: Plan: Postop day #5 status post excision of displaced, comminuted right olecranon fracture, triceps tendon advancement Neurologically intact. No significant pain appreciated in the right upper extremity. Can partial weight-bear using walker. Elevate and ice. Additional follow-up appointment scheduled for the olecranon fracture, in discharge tab. Will transition to a hinged elbow brace at that time. Spoke with Dr. Perry about this. Once she is transitioned, she should be locked in extension when weightbearing with a walker. She can be unlocked to flex to 90 degrees at rest and with fine motor activity. Admission and Anticipated Discharge Date Admission Date: March 04, 2024 Subjective Patient seen in bed today eating breakfast. She is feeling better today from pain standpoint than she was yesterday. She managed to stand up with physical therapy and sit in the chair for period of time. She has some soreness in the hip but it was not excruciating. Mild soreness in the elbow but no real change from what it has been. She has been working on wiggling her fingers and her toes and ankle. She will [facility] either today or tomorrow. She denies any numbness or tingling in her fingers or toes. Physical Exam Constitutional: Resting comfortably in bed. Demeanor improved today compared to yesterday. Pleasant. Cardiovascular: Right DP pulse 1+ Musculoskeletal: Right upper extremity: Plaster cast in place. No pain with passive range of motion of the shoulder. Able to move all fingers including thumb with no pain Right lower extremity: Dressings on the lateral hip and thigh are dry. No surrounding erythema. No soft tissue induration. Minimal swelling in the proximal lateral thigh region. Strength 5/5 with ankle dorsiflexion, plantarflexion, inversion, and eversion. Moves all toes. No pain elicited with gentle passive range of motion of her knee. Mild discomfort elicited in the hip with passive logroll. No calf tenderness or swelling. Skin: Pain, warm, dry. Capillary refill less than 2 seconds in right fingers Neurologic: No sensory deficits in right fingers or right toes to light touch Results & Data Vital Signs (Past 12 Hours) Vital Signs Temp Pulse Resp BP Pulse Ox O2 Del Method O2 Flow Rate 03/10/24 08:45 80 18 119/73 93 Room Air 03/10/24 07:11 97.9 F 75 18 114/74 98 Room Air 03/10/24 03:22 Nasal Cannula 2 03/10/24 02:49 84 14 124/74 97 Nasal Cannula
[2024-03-10] MEDS ORDERED: ONDANSETRON INJ 2 MG/ML 2 ML VIAL IV PRN (11:12)
[2024-03-10] MEDS: POLYETHYLENE (MIRALAX) 17 GM PACK PO SCH (12:06)
--- NOTE | 2024-03-10 14:08 | Hospitalist Progress Note ---
Date of Service March 10, 2024 Assessment & Plan (1) Fall: (2) Pathological fracture of right hip due to age-related osteoporosis: (3) Fracture of right olecranon process: (4) CAD (coronary artery disease): Plan 63 yr old F who has a significant PMH of CAD with hx of coronary stent, HTN, HLD, hx of atrial flutter, Pre DM, Hypothyroidism, Gastroparesis, chronic superficial gastritis, Gerd, Osteoporosis, Depression with anxiety, DDD, neurostimulator device in situ who presents to ED after sustaining a fall. Mechanical Fall Pathologic fx of R hip due to age related osteoporosis Fracture of R olecranon process Presented with a mechanical fall Right elbow x-ray with avulsion fracture of olecranon process. Hip x-ray with right comminuted intertrochanteric fracture with displacement. Continue with aggressive pain management, bowel regimen. s/p Intermedullary Shaun for Trochanteric Fracture- Right 03/05 Right Excision Comminuted Olecranon Fracture, Triceps Tendon Advancement 03/05. RUE In cast. RUE - partial WB to use a walker Orthopedics on board, appreciate recommendation. Continue ASA and metoprolol. Lovenox for dvt px. Acute blood loss anemia: Baseline hb around 12, blood loss 2/2 fracture and operative loss. HnH 7.4 03/07, s/p 1 unit prbc on 03/07. Closely monitor HnH for transfusion needs. currently HnH stable. CA, hx of LIZBETH x 3 HTN HLD follows [facility] Cards on asa, statin, metoprolol, amlodipine, statin no CP or SOB, admitting ecg reviewed w/o ischemic change Chronic Back pain/hx of lumbar surgery/neurostimulator device insitu: chronic pa in management Pre DM: a1c 6.0, hold metformin, no indication for ISS at this time Hypothyroidism: continue levothyroxine Gastroparesis/Chronic superficial gastritis: continue PPI, sucralfate, reglan DVT ppx: lovenox. FULL CODE PCP: Dr. Keagan Sanchez Dispo: pt/ot, will need rehab. Please note the above document was generated using voice recognition software. It may contain grammatical, syntax or spelling errors. Any formal questions or concerns about the content, text or information contained within the body of this dictation should be directly addressed to the provider for clarification Admission and Anticipated Discharge Date Admission Date: March 04, 2024 Subjective Patient seen and examined at bedside. She is sitting up on chair at the side of the bed; not in distress She reports that the pain is well-controlled on current medication. Reports she had not had bowel movement in the last 2 days. Review of Systems Review of Systems: All systems reviewed & are unremarkable except as noted in Subjective Physical Exam Physical Exam: General Appearance: awake, AO X 3, not in any distress Respiratory/Chest: Normal breath sounds, CTA, No accessory muscle use Cardiovascular: S1, S2, No murmur Abdomen/GI:Soft, Non tender, Bowel sounds present Extremities/Musculoskeletal:normal inspection, Trace, edema, right hip dressing w/ no soakage. RUE in cast. Neurologic/Psych:AAOX3, grossly no focal neurological deficits Skin: normal color, warm Results & Data Results & Data Vital Signs (Past 12 Hours) Vital Signs Temp Pulse Resp BP Pulse Ox O2 Del Method O2 Flow Rate 03/10/24 13:00 80 18 118/73 95 Room Air 03/10/24 08:45 80 18 119/73 93 Room Air 03/10/24 07:50 Nasal Cannula 2 03/10/24 07:11 36.6 C 75 18 114/74 98 Room Air 03/10/24 03:22 Nasal Cannula 2 03/10/24 02:49 84 14 124/74 97 Nasal Cannula
[2024-03-10] MEDS: bisacodyL 10 MG SUPP PR STA (14:48)
[2024-03-11 07:56] LABS: Basophils # (auto) 0.01 K/uL (0.00-0.20); Basophils % (auto) 0.2 %; Eosinophils # (auto) 0.05 K/uL (0.00-0.50); Hematocrit (blood only) 26.8 % (37.0-47.0); Hemoglobin 8.7 g/dl (12.0-16.0); Immature Granulocytes # (auto) 0.03 K/uL (0.01-0.20); Immature Granulocytes % (auto) 0.6 %; Lymphocytes # (auto) 1.13 K/uL (1.20-3.40); Lymphocytes % (auto) 23.5 %; Mean Corpuscular Hemoglobin 28.2 pg (25.0-34.0); Mean Corpuscular Hgb Conc 32.5 g/dL (32.0-36.0); Mean Corpuscular Volume 86.7 fL (80.0-100.0); Mean Platelet Volume 9.4 fL (9.4-12.4); Monocytes % (auto) 10.4 %; Neutrophils # (auto) 3.09 K/uL (1.40-6.50); Neutrophils % (auto) 64.3 %; Nucleated RBC # (auto) 0.02 K/uL (0.00-0.12); Nucleated RBC % (auto) 0.4 %; Platelet Count 217 K/uL (130-400); RDW Coefficient of Variation 14.5 % (11.5-14.5); RDW Standard Deviation 44.6 fL (36.4-46.3); Red Blood Count 3.09 M/uL (4.20-5.40); White Blood Count 4.81 K/ul (4.8-10.8)
--- NOTE | 2024-03-11 11:09 | Orthopedic Progress Note ---
Date of Service March 11, 2024 Assessment & Plan (1) Fracture, subtrochanteric, right femur, closed: Plan: Postop day #6 status post intramedullary jordan for displaced, comminuted right intertrochanteric femur fracture with subtrochanteric extension. Patient is improved today compared to yesterday. Dressings are clean and dry today. Left in place. These can be changed on an as-needed basis. Continue PT/OT. Weightbearing as tolerated with walker. DVT prophylaxis and pain medication per internal medicine. Reminded nursing staff SCDs should be in place. Follow-up appointment scheduled and listed in discharge tab She will be seen in the office early next week for brace application on the right elbow. Admission and Anticipated Discharge Date Admission Date: March 04, 2024 Subjective This 63-year-old female is seen today in her room. She is 6 days status post ORIF of her right hip fracture. She states her pain is controlled today. She has ambulated from the bed to the bathroom. She has not walked in the poe. She states her leg is too weak. She is hoping to go to rehab or a senior living facility today. She denies any chest pain or increase shortness of breath. She is keeping her right arm cast clean and dry. No additional complaints. Physical Exam Constitutional: General: Well-developed, well-nourished, middle-aged female, in no acute distress. Sitting on the bed. Alert and oriented. Skin: Warm dry with good turgor. No rashes. No ecchymosis or erythema. Musculoskeletal: Right hip evaluation reveals intact and dry dressings. She has limited hip motion secondary to discomfort. She complains of pain with logrolling as well as flexion. There is intact motor function of the ankle and toes. She is able to extend her knee off of the pillow bump to perform knee extensions. She is unable to do a full straight leg raise. Right elbow remains cast. There is no motion. She does have intact motor function of her digits. Neurologic: Sensation is intact across the right leg by soft touch. Sensation is also intact across the digits of the right hand. Results & Data Vital Signs (Past 12 Hours) Vital Signs Temp Pulse Resp BP Pulse Ox O2 Del Method 03/11/24 07:13 36.6 C 81 16 120/73 92 Room Air Laboratory Results CBC obtained today shows a normal white count at 4.8. H&H are 8.7 and 26.8. Platelets 217,000.
--- NOTE | 2024-03-11 11:36 | Hospitalist Progress Note ---
Date of Service March 11, 2024 Assessment & Plan (1) Fall: (2) Pathological fracture of right hip due to age-related osteoporosis: (3) Fracture of right olecranon process: (4) CAD (coronary artery disease): Plan 63 yr old F who has a significant PMH of CAD with hx of coronary stent, HTN, HLD, hx of atrial flutter, Pre DM, Hypothyroidism, Gastroparesis, chronic superficial gastritis, Gerd, Osteoporosis, Depression with anxiety, DDD, neurostimulator device in situ who presents to ED after sustaining a fall. Mechanical Fall Pathologic fx of R hip due to age related osteoporosis Fracture of R olecranon process Presented with a mechanical fall Right elbow x-ray with avulsion fracture of olecranon process. Hip x-ray with right comminuted intertrochanteric fracture with displacement. Continue with aggressive pain management, bowel regimen. s/p Intermedullary Shaun for Trochanteric Fracture- Right 03/05 Right Excision Comminuted Olecranon Fracture, Triceps Tendon Advancement 03/05. RUE In cast. RUE - partial WB to use a walker Orthopedics on board, appreciate recommendation. Continue ASA and metoprolol. Lovenox for dvt px. Acute blood loss anemia: Baseline hb around 12, blood loss 2/2 fracture and operative loss. HnH 7.4 03/07, s/p 1 unit prbc on 03/07. Closely monitor HnH for transfusion needs. currently HnH stable. CA, hx of LIZBETH x 3 HTN HLD follows [facility] Cards on asa, statin, metoprolol, amlodipine, statin no CP or SOB, admitting ecg reviewed w/o ischemic change Chronic Back pain/hx of lumbar surgery/neurostimulator device insitu: chronic pa in management Pre DM: a1c 6.0, hold metformin, no indication for ISS at this time Hypothyroidism: continue levothyroxine Gastroparesis/Chronic superficial gastritis: continue PPI, sucralfate, reglan DVT ppx: lovenox. FULL CODE PCP: Dr. Keagan Sanchez Dispo: pt/ot, will need rehab. Awaiting bed Please note the above document was generated using voice recognition software. It may contain grammatical, syntax or spelling errors. Any formal questions or concerns about the content, text or information contained within the body of this dictation should be directly addressed to the provider for clarification Admission and Anticipated Discharge Date Admission Date: March 04, 2024 Subjective Appears comfortable had multiple BM worked with PT/OT Review of Systems Review of Systems: All systems reviewed & are unremarkable except as noted in Subjective Physical Exam Physical Exam: General Appearance: awake, AO X 3, not in any distress Respiratory/Chest: Normal breath sounds, CTA, No accessory muscle use Cardiovascular: S1, S2, No murmur Abdomen/GI:Soft, Non tender, Bowel sounds present Extremities/Musculoskeletal:normal inspection, Trace, edema, right hip dressing w/ no soakage. RUE in cast. Neurologic/Psych:AAOX3, grossly no focal neurological deficits Skin: normal color, warm Results & Data Results & Data Vital Signs (Past 12 Hours) Vital Signs Temp Pulse Resp BP Pulse Ox O2 Del Method 03/11/24 07:13 36.6 C 81 16 120/73 92 Room Air
[2024-03-11 16:11] VITALS: TEMP 97.9
[2024-03-11] MEDS: HYDROmorphone INJ 0.5 MG/0.5 ML SYR IV STA (22:01)
[2024-03-12] MEDS: ACETAMINOPHEN 1,000 MG/100 ML VIAL IV STA (03:06)
[2024-03-12 07:08] VITALS: BP 122/70; PULSE 76; RESP 18; O2SAT 96
[2024-03-12 07:43] LABS: Basophils # (auto) 0.02 K/uL (0.00-0.20); Basophils % (auto) 0.4 %; Eosinophils # (auto) 0.04 K/uL (0.00-0.50); Eosinophils % (auto) 0.8 %; Hemoglobin 8.2 g/dl (12.0-16.0); Immature Granulocytes # (auto) 0.06 K/uL (0.01-0.20); Immature Granulocytes % (auto) 1.1 %; Lymphocytes # (auto) 1.18 K/uL (1.20-3.40); Lymphocytes % (auto) 22.5 %; Mean Corpuscular Hemoglobin 28.3 pg (25.0-34.0); Mean Corpuscular Hgb Conc 32.8 g/dL (32.0-36.0); Mean Corpuscular Volume 86.2 fL (80.0-100.0); Mean Platelet Volume 9.6 fL (9.4-12.4); Monocytes # (auto) 0.58 K/uL (0.11-0.59); Monocytes % (auto) 11.1 %; Neutrophils # (auto) 3.36 K/uL (1.40-6.50); Neutrophils % (auto) 64.1 %; Nucleated RBC # (auto) 0.03 K/uL (0.00-0.12); Nucleated RBC % (auto) 0.6 %; Platelet Count 226 K/uL (130-400); RDW Coefficient of Variation 14.4 % (11.5-14.5); RDW Standard Deviation 44.6 fL (36.4-46.3); White Blood Count 5.24 K/ul (4.8-10.8)
[2024-03-12 08:02] LABS: BUN Creatinine Ratio 21.1 (10-20); Calcium 8.4 mg/dl (8.6-10.3); Creatinine Clr Calc Pharmacy 107.6 ml/min; Potassium 3.6 mmol/L (3.5-5.1)
--- NOTE | 2024-03-12 15:19 | Orthopedic Progress Note ---
Date of Service March 12, 2024 Assessment & Plan (1) Fracture, subtrochanteric, right femur, closed: Plan: Postop day #7 Dressings are clean and dry today. Left in place. These can be changed on an as-needed basis. Continue PT/OT. Weightbearing as tolerated with walker. DVT prophylaxis and pain medication per internal medicine. Reminded nursing staff SCDs should be in place. Follow-up appointment scheduled and listed in discharge tab Was discharged to [facility] for rehab this afternoon She will be seen in the office early next week for brace application on the right elbow. Admission and Anticipated Discharge Date Admission Date: March 04, 2024 Subjective 63-year-old female is 7 days status post Intramedullary Shaun for displaced, comminuted right intertrochanteric femur fracture with subtrochanteric extension & Excision of displaced, comminuted right olecranon fracture, Triceps Tendon Advancement. She states that the splint on her right arm is fairly comfortable but heavy. She states that she still has difficulty lifting her right leg. She states she has met with case management and plans on going to [facility] for rehab. She is under the understanding that she will be discharged there later today. Currently she denies chest pain, shortness of breath, fever, chills, sweats, nausea, vomiting, diarrhea or numbness or tingling in her right upper or lower extremities. Review of Systems Review of Systems: All systems reviewed & are unremarkable except as noted in Subjective Physical Exam Physical Exam: Right upper extremity: Cast is clean dry and intact left in place. Patient is able to move her digits and intact light sensation to touch over the pads of all digits. She is able to perform pincer grasp and thumb and index finger. She had no discomfort with resisted extension at the IP joint of the thumb. She was able to easily forward flex and AB duct her shoulder to 90 degrees without difficulty or discomfort. Right lower extremity: Patient was unable to perform right straight leg raise test. Her dressings were clean dry and intact and left in place. She was able to actively dorsi and plantarflex her foot and detect light sensation to touch over the pads of all digits. Her peripheral pulses were 1+. She tolerated logroll testing but passive hip flexion to approximately 70 degrees causes discomfort as well as very light passive internal and external hip rotation. Patient was neurovascularly intact in the right lower extremity. Results & Data Vital Signs (Past 12 Hours) Vital Signs Temp Pulse Resp BP Pulse Ox O2 Del Method 03/12/24 07:07 36.6 C 76 18 122/70 96 Room Air Diagnostic Findings Laboratory Results WBC 5.24 K/ul (4.8-10.8) 03/12/24 07:00 RBC 2.90 M/uL (4.20-5.40) L 03/12/24 07:00 Hgb 8.2 g/dl (12.0-16.0) L 03/12/24 07:00 Hct 25.0 % (37.0-47.0) L 03/12/24 07:00 MCV 86.2 fL (80.0-100.0) 03/12/24 07:00 MCH 28.3 pg (25.0-34.0) 03/12/24 07:00 MCHC 32.8 g/dL (32.0-36.0) 03/12/24 07:00 RDW Std Deviation 44.6 fL (36.4-46.3) 03/12/24 07:00 RDW Coeff of James 14.4 % (11.5-14.5) 03/12/24 07:00 Plt Count 226 K/uL (130-400) 03/12/24 07:00 MPV 9.6 fL (9.4-12.4) 03/12/24 07:00 Immature Gran % (Auto) 1.1 % 03/12/24 07:00 Neut % (Auto) 64.1 % 03/12/24 07:00 Lymph % (Auto) 22.5 % 03/12/24 07:00 [place] % (Auto) 11.1 % 03/12/24 07:00 Eos % (Auto) 0.8 % 03/12/24 07:00 Baso % (Auto) 0.4 % 03/12/24 07:00 Neut # (Auto) 3.36 K/uL (1.40-6.50) 03/12/24 07:00 Lymph # (Auto) 1.18 K/uL (1.20-3.40) L 03/12/24 07:00 [place] # (Auto) 0.58 K/uL (0.11-0.59) 03/12/24 07:00 Eos # (Auto) 0.04 K/uL (0.00-0.50) 03/12/24 07:00 Baso # (Auto) 0.02 K/uL (0.00-0.20) 03/12/24 07:00 Immature Gran # (Auto) 0.06 K/uL (0.01-0.20) 03/12/24 07:00 Absolute Nucleated RBC 0.03 K/uL (0.00-0.12) 03/12/24 07:00 Nucleated RBC % (auto) 0.6 % 03/12/24 07:00 PT 10.9 Seconds (9.0-12.0) 03/04/24 18:05 INR 1.0 (0.9-1.1) 03/04/24 18:05 APTT 24 Seconds (21-31) 03/04/24 18:05 PTT Ratio 0.9 03/04/24 18:05 Sodium 136 mmol/L (136-145) 03/12/24 07:00 Potassium 3.6 mmol/L (3.5-5.1) 03/12/24 07:00 Chloride 101 mmol/L (98-107) 03/12/24 07:00 Carbon Dioxide 28 mmol/L (21-32) 03/12/24 07:00 Anion Gap 7 (3-11) 03/12/24 07:00 BUN 12 mg/dl (6-23) 03/12/24 07:00 Creatinine 0.57 mg/dl (0.6-1.2) L 03/12/24 07:00 Est Cr Clr Drug Dosing 107.6 ml/min 03/12/24 07:00 eGFR 102.68 03/12/24 07:00 BUN/Creatinine Ratio 21.1 (10-20) H 03/12/24 07:00 Glucose 143 mg/dl (70-99(Fasting)) H 03/12/24 07:00 POC Glucose 186 mg/dl (70-99) H 03/10/24 10:38 Calcium 8.4 mg/dl (8.6-10.3) L 03/12/24 07:00 Phosphorus 4.7 mg/dl (2.5-4.9) 03/06/24 06:28 Magnesium 1.9 mg/dl (1.7-2.4) 03/09/24 07:45 Total Bilirubin 0.4 mg/dl (0.2-1.0) 03/04/24 18:05 AST 26 U/L (13-39) 03/04/24 18:05 ALT 25 U/L (7-52) 03/04/24 18:05 Alkaline Phosphatase 68 U/L (34-104) 03/04/24 18:05 Total Protein 6.7 gm/dl (6.0-8.3) 03/04/24 18:05 Albumin 4.6 gm/dl (3.4-5.0) 03/04/24 18:05 Globulin 2.1 gm/dl (2.5-4.0) L 03/04/24 18:05 Albumin/Globulin Ratio 2.2 (0.9-2) H 03/04/24 18:05 Lipase 37 U/L (11-82) 03/04/24 18:05 25-OH Vitamin D Total 55.7 ng/ml (30-100) 03/06/24 06:28 Nasal Screen MRSA (PCR) Negative (Negative) 03/05/24 00:00 Blood Type A Positive 03/04/24 21:34 Blood Type Recheck A Positive 03/07/24 06:40 Antibody Screen NEGATIVE 03/04/24 21:34 Crossmatch See Detail 03/04/24 21:[address] 03/04/24 17:47 EXAM: CT Cervical Spine Without Intravenous Contrast INDICATION: Trauma. TECHNIQUE: Axial computed tomography images of the cervical spine without intravenous contrast. Sagittal and coronal reformatted images were created and reviewed. This CT exam was performed using one or more of the following dose reduction techniques: automated exposure control, adjustment of the mA and/or kV according to patient size, and/or use of iterative reconstruction technique. COMPARISON: 11/01/2016 FINDINGS: Limitations: None. Vertebrae: There is stable mild diffuse facet arthrosis worse on the left. Stable partial anterior bridging C5-C6 and mild asymmetric left uncal spurring. No fracture or subluxation. Discs/spinal canal/neural foramina: Moderate to space narrowing C5-C6. Mild narrowing at other levels. No stenosis. Soft tissues: No significant abnormality noted. Lung apices: No significant abnormality noted. IMPRESSION: Stable mild multilevel degenerative changes without fracture. ACT 112: Negative or not required by law. Electronically signed by Janine Bolton 03-04-2024 6:17 PM Chest X-Ray 03/04/24 17:47 EXAM: Radiograph of the Chest 1 View INDICATION: Fall. TECHNIQUE: Frontal view of the chest. COMPARISON: 03/22/2016 FINDINGS: Lungs and pleural spaces: No consolidation or pulmonary edema. No pleural effusion or pneumothorax. Heart: Shape and configuration within normal limits allowing for technique. Mediastinum: Normal contour. Bones/joints: See below. Soft tissues: No abnormality noted. No radiopaque foreign body noted. Tubes, lines and devices: Stable dorsal column electrode terminating at the mid thoracic level. Visualized right reverse shoulder arthroplasty components well-seated. No acute fracture visible. Upper abdomen: Stable right diaphragmatic eventration and mild chronic interstitial scarring. IMPRESSION: No acute cardiopulmonary disease. ACT 112: Negative or not required by law. Electronically signed by Janine Bolton 03-04-2024 6:[address] 03/04/24 17:47 EXAM: CT Head Without Intravenous Contrast INDICATION: Trauma. TECHNIQUE: Axial computed tomography images of the head/brain without intravenous contrast. Sagittal and/or coronal reformats are provided. Sagittal and coronal reformatted images were created and reviewed. This CT exam was performed using one or more of the following dose reduction techniques: automated exposure control, adjustment of the mA and/or kV according to patient size, and/or use of iterative reconstruction technique. COMPARISON: 09/16/2016 FINDINGS: Limitations: None. Brain and extra-axial spaces: Stable bifrontal foci of encephalomalacia. Chronic appearing small looking noted in the right [place]. No acute territorial infarct. No extra-axial fluid collection or hydrocephalus. No hemorrhage. Bones/joints: No acute changes. Soft tissues: No significant abnormality noted. Vasculature: No acute abnormality noted. Sinuses: No layering fluid in the visualized portions of the paranasal sinuses. Mastoid air cells: No mastoid effusion. Orbits: No significant abnormality noted. IMPRESSION: Stable chronic changes. No acute disease. ACT 112: Negative or not required by law. Electronically signed by Janine Bolton 03-04-2024 6:13 PM Hip/Pelvis X-Ray 03/04/24 17:47 Study: Pelvis, 1 view, right hip, 2 views History: Pain Comparison: None Findings/ Impression: Right comminuted intertrochanteric fracture with displacement of the greater and lesser trochanters, and foreshortening. The femoral acetabular joint spaces appear intact. No additional acute bony abnormalities are definitely seen. The bones are osteopenic. Left hip appears intact. There are fixation changes of the lumbar spine. Electronically signed by Domenico Cain 03-04-2024 8:[address] 03/04/24 19:48 Exam(s): CT L SPINE EXAM: CT Lumbar Spine Without Intravenous Contrast CLINICAL HISTORY: Reason for exam: fall, pain. TECHNIQUE: Axial computed tomography images of the lumbar spine without intravenous contrast. CTDI is 39.37 mGy and DLP is 2127.36 mGy-cm. Automated exposure control was utilized for the study. A dose lowering technique was utilized adhering to the principles of ALARA. COMPARISON: Prior plain film images of the lumbar spine from May 26, 2018. FINDINGS: Vertebrae: Remote superior endplate fracture deformities of the L1 and S1 segments. Status post posterior decompression of L3. Status post posterior fusion of L4-S1 with transpedicular screws and connecting rods in place. Diffuse osteopenia throughout the visualized bones. No acute fracture. Discs/spinal canal/neural foramina: There is a cord stimulator electrodes extend into the dorsal epidural space at L1-L2. No acute findings. No spinal canal stenosis. Soft tissues: There is a cord stimulator battery pack in the left subcutaneous tissues at the level of L1 and L2. IMPRESSION: No evidence of acute lumbar spine pathology. Electronically signed by: Adriana Munguia MD 03/05/24 00:[address] 03/04/24 19:48 Exam(s): CT T SPINE EXAM: CT Thoracic Spine Without Intravenous Contrast CLINICAL HISTORY: Reason for exam: fall pain. TECHNIQUE: Axial computed tomography images of the thoracic spine without intravenous contrast. CTDI is 39.37 mGy and DLP is 2127.36 mGy-cm. Automated exposure control was utilized for the study. A dose lowering technique was utilized adhering to the principles of ALARA. COMPARISON: Prior plain film images of the thoracic spine from May 26, 2018. FINDINGS: Vertebrae: Unremarkable. No acute fracture. Diffuse osteopenia throughout the visualized bones. Discs/spinal canal/neural foramina: No acute findings. There is a spinal cord stimulator with distal electrode array in the dorsal epidural space extending from T6-T9. No spinal canal stenosis. Soft tissues: Unremarkable. IMPRESSION: No evidence of acute thoracic spine pathology. Electronically signed by: Adriana Munguia MD 03/04/24 23:57 PM Elbow X-Ray 03/05/24 12:00 FL elbow RT 2V CLINICAL HISTORY: ORIF RT ELBOW COMPARISON STUDY: Right elbow radiographs March 04, 2024. FLUOROSCOPY TIME: 5 seconds. Ka,r: 0.34 mGy FLUOROSCOPIC IMAGES: 2 FINDINGS: Fluoroscopy was provided during excision of the displaced right olecranon fracture with triceps tendon enhancement. There are no unexpected radiopaque foreign bodies. IMPRESSION: Fluoroscopy provided during fixation of the displaced right olecranon fracture with triceps tendon enhancement. ACT 112: Negative or not required by law. Electronically signed by: Jamey Last M.D. 03/06/2024 7:41 AM Hip X-Ray 03/05/24 12:00 FL hip RT 2-3V CLINICAL HISTORY: RT TROCH NAIL COMPARISON STUDY: Pelvis and right hip radiographs March 04, 2024. FLUOROSCOPY TIME: 2 minutes and 54 seconds. Ka,r: 34.80 mGy FLUOROSCOPIC IMAGES: 5 FINDINGS: Fluoroscopy was provided during open reduction and internal fixation of the intertrochanteric fracture of the right femur. Fracture alignment has significantly improved. There are no unexpected radiopaque foreign bodies. IMPRESSION: Fluoroscopy provided during open reduction and internal fixation of the intertrochanteric fracture of the right femur. ACT 112: Negative or not required by law. Electronically signed by: Jamey Last M.D. 03/06/2024 7:39 AM Femur X-Ray 03/08/24 12:12 XR femur RT 2V routine HISTORY: 63 years-old Female s/p IM nail, patient having a lot of pain acute fracture of the right femur COMPARISON: 03/04/2024 TECHNIQUE: 2 views of the right femur FINDINGS: Intertrochanteric nail with medullary shaun fixates the acute intertrochanteric fracture with lateral skin brittanie. Expected postoperative soft tissue swelling with deep tissue air. IMPRESSION: Fluoroscopic assistance as above. ACT 112: Negative or not required by law. The above report was generated using voice recognition software. It may contain grammatical, syntax or spelling errors. Electronically signed by: James Leonard M.D. 03/08/2024 2:11 PM
--- NOTE | 2024-03-12 15:28 | Discharge Summary ---
Date of Service March 12, 2024 Admission HPI Per Admitting Provider This is a 63 yr old F who has a significant PMH of CAD with hx of coronary stent, HTN, HLD, hx of atrial flutter, Pre DM, Hypothyroidism, Gastroparesis, chronic superficial gastritis, Gerd, Osteoporosis, Depression with anxiety, DDD, neurostimulator device in situ who presents to ED after sustaining a fall. Hx obtained from pt and outpt chart review. She was going into her sisters house and she has 2 concrete steps. She was trying to go up the steps when she lost footing and fell backwards.She reports hitting her head, back, Right elbow and R leg. She denies LOC or syncope. She reports significant pain to her R elbow, back and R hip. After she fell she instantly knew she broke something. She denies any f/c/s, chest pain, sob, n/v/d. Prior to todays events she denies any cardiopulmonary symptoms with exertion. She reports being able to do a flight of steps w/o chest pain or SOB. PT cardiac hx includes NSTEMI in 2019 resulting in CYBER INCIDENT ANALYST of pLAD with 1 LIZBETH. the L cs and RCA were found to have mild disease and PRESSER COTTON GINNING of ramus, LVEF 65%. August 2020 unstable angina with EKG showing new anterior T wave inversions and underwent cardiac cath. Angiography revealed 80% stenosis of ostial and mid segments of 1st diagonal branch that was treated with 2 LIZBETH. Her last echo was August which showed EF 60-64%, no WMA, and proximal ascending aorta enlarged at 4.0cm. Admission Exam Per Admitting Provider General Appearance: Obese, mild distress secondary to pain Head: normocephalic, Atraumatic Eyes: normal inspection, EOMI Neck: supple, Trachea midline Respiratory/Chest: Normal breath sounds, CTA, No accessory muscle use Cardiovascular: S1, S2, No murmur Abdomen/GI:Soft, Non tender, Bowel sounds present Extremities/Musculoskeletal:normal inspection, Trace, edema, right hip decreased ROM due to pain, tender, swelling, right elbow decreased ROM, swelling, tender Neurologic/Psych:AAOX3, grossly no focal neurological deficits Skin: normal color, warm Principal Diagnosis Mechanical Fall Pathologic fx of R hip due to age related osteoporosis Fracture of R olecranon process Discharge Exam General Appearance: awake, AO X 3, not in any distress Respiratory/Chest: Normal breath sounds, CTA, No accessory muscle use Cardiovascular: S1, S2, No murmur Abdomen/GI:Soft, Non tender, Bowel sounds present Extremities/Musculoskeletal:normal inspection, Trace, edema, right hip dressing w/ no soakage. RUE in cast. Neurologic/Psych:AAOX3, grossly no focal neurological deficits Skin: normal color, warm Discharge Data Allergies Allergy/AdvReac Type Severity Reaction Status Date / Time clarithromycin Allergy Intermediate Rash, Verified 06/10/23 14:04 diarrhea Sulfa (Sulfonamide Allergy Intermediate Rash Verified 06/10/23 14:04 Antibiotics) adhesive Allergy Unknown Tape- Verified 06/10/23 14:04 redness, paper tape/coban "ok" Penicillins Allergy Unknown Nose Verified 06/10/23 14:04 bleed, rash aspirin AdvReac Mild Nose bleed Verified 06/10/23 14:04 erythromycin base AdvReac Mild GI upset Verified 06/10/23 14:04 orlistat AdvReac Mild GI upset Verified 06/10/23 14:04 Consultations 03/04/24 18:32 ED Decision to Admit Stat 03/04/24 19:08 Consult Anesthesiology Routine Consult Orthopedic Surgery Routine Procedures Performed Operation Date: 03/05/24 11:05 Actual Procedures p Intermedullary Shaun for Trochanteric Fracture- Right(Right) - Chandu Perry MD s Right Excision Comminuted Olecranon Fracture, Triceps Tendon Advancement(Right) - Chandu Perry MD Ordered Studies 03/04/24 17:47 CT cervical spine wo con Stat CT head/brain wo con Stat 03/04/24 19:48 CT lumbar spine wo con Stat CT thoracic spine wo con Stat 03/05/24 12:00 FL elbow RT 2V Routine FL hip RT 2-3V Routine Hospital Course (1) Fall: (2) Pathological fracture of right hip due to age-related osteoporosis: (3) Fracture of right olecranon process: (4) CAD (coronary artery disease): Plan 63 yr old F who has a significant PMH of CAD with hx of coronary stent, HTN, HLD, hx of atrial flutter, Pre DM, Hypothyroidism, Gastroparesis, chronic superficial gastritis, Gerd, Osteoporosis, Depression with anxiety, DDD, neurostimulator device in situ who presents to ED after sustaining a fall. Mechanical Fall Pathologic fx of R hip due to age related osteoporosis Fracture of R olecranon process Presented with a mechanical fall Right elbow x-ray with avulsion fracture of olecranon process. Hip x-ray with right comminuted intertrochanteric fracture with displacement. s/p Intermedullary Shaun for Trochanteric Fracture- Right 03/05 Right Excision Comminuted Olecranon Fracture, Triceps Tendon Advancement 03/05. RUE In cast. RUE - partial WB to use a walker PT/OT evaluation was done after the surgery; patient was recommended acute rehab. Patient was treated with analgesics for pain control; also started on aggressive bowel regimen with improvement of constipation. Lovenox was prescribed for 4 more weeks for DVT prophylaxis Acute blood loss anemia: Baseline hb around 12, blood loss 2/2 fracture and operative loss. HnH 7.4 03/07, s/p 1 unit prbc on 03/07. Hemoglobin remained stable CA, hx of LIZBETH x 3 HTN HLD follows [facility] Cards on asa, statin, metoprolol, amlodipine, statin no CP or SOB, admitting ecg reviewed w/o ischemic change Discharge to acute rehab with instructions to follow-up with orthopedic after discharge. Please note the above document was generated using voice recognition software. It may contain grammatical, syntax or spelling errors. Any formal questions or concerns about the content, text or information contained within the body of this dictation should be directly addressed to the provider for clarification Total Time Total Time Spent Total Time Spent (In Minutes): 35 Total Time Includes: Examination of the Patient, Discharge Planning, Medication Reconciliation, Communication With Other Providers and Other Discharge Plan Discharge Items Patient Disposition: Transfer Inpatient Rehab Fac Reason For Visit: FALL, HIP FRACTURE Discharge Diagnosis: Fracture of right hip status post surgery Fracture of right olecranon process status post surgery Activity: Resume your previous activity Non-emergency contact: Primary Care Provider Call non-emergency contact if: you have any medication questions Follow-up/Referrals: Chandu Perry MD [Physician] - 03/19/24 9:45 am () Keagan Sanchez MD [Primary Care Provider] - Zhane Brown PA-C [Physician Workplace Relations Adviser] - 03/15/24 2:15 pm Diet: Regular Addtl Attending Provider Instructions: Please use DVT prophylaxis with Lovenox for 28 days. Please use MiraLAX for constipation twice a day. The dose can be decreased if you experience diarrhea. Follow-up with orthopedic as scheduled above. Addtl Dental Technician Instructor Provider Instructions: Orthopedic Discharge Instructions: WBAT right hand and right leg No hip precautions Long arm plaster cast RUE in extension, remain on until follow up, then will likely transition to hinged ROM elbow brace May WBAT with cast in place to use a walker OOB with assistance DVT prophylaxis per primary PT/OT - range of motion as tolerated with right hip Dressing change as needed per nursing Please call [phone] with any questions/concerns Pending Studies at Discharge: No Stand-Alone Forms: My [facility] [employer] Skilled Items Patient informed of condition?: Yes DNR: No Discharge Level of Care: Acute rehab Communicable Disease: No Discharge Prognosis: Stable Lines: None Urinary Catheter: No Medications and DC Order Prescriptions: New oxycodone 5 mg Tablet 5 mg PO QID PRN (Reason: pain) Qty: 10 0RF enoxaparin [Lovenox] 40 mg/0.4 mL syringe 40 mg subcut DAILY 28 Days Qty: 11.2 0RF polyethylene glycol 3350 [Miralax] 17 gram/dose powder 17 g PO BID Qty: 238 0RF Continued aspirin [Adult Aspirin Regimen] 81 mg tablet,delayed release (DR/EC) 81 mg PO QAM cholecalciferol (vitamin D3) 25 mcg (1,000 unit) capsule 25 mcg PO QAM ondansetron HCl [Zofran] 4 mg tablet 4 mg PO Q6H PRN (Reason: Nausea) sertraline [Zoloft] 100 mg tablet 150 mg PO QAM acetaminophen [Tylenol Extra Strength] 500 mg tablet 500 mg PO QID PRN (Reason: Pain) metoclopramide HCl [Reglan] 10 mg tablet 10 mg PO TID levothyroxine 112 mcg capsule 112 mcg PO QAM baclofen 20 mg tablet 20 mg PO QID metformin 500 mg tablet 500 mg PO BID gabapentin 600 mg tablet 1,200 mg PO TID famotidine 20 mg tablet 40 mg PO HS atorvastatin 80 mg Tablet 80 mg PO QPM sucralfate 1 gram Tablet 1 g PO BID amlodipine 5 mg Tablet 5 mg PO QAM topiramate 25 mg Capsule, Sprinkle 50 mg PO HS pantoprazole 40 mg Tablet,Delayed Release (Dr/Ec) 40 mg PO QAM metoprolol succinate 25 mg Tablet Extended Release 24 Hr 25 mg PO QAM ezetimibe 10 mg Tablet 10 mg PO QAM Discontinued tramadol 50 mg tablet 100 mg PO Q6H PRN (Reason: Moderate Pain (Scale Score 5-6)) Discharge Orders: Discharge Order (Routine); Ordered 03/12/24 Ordered By: Reji Vazquez/Other Patient Handouts: Leg or Arm Fracture, Common Types of Fractures Admission Data Admit Date/Time: 03/04/24 18:48 Attending Provider: Reji Franklin Admit Provider: Cesar Nails Primary Care Provider: Keagan Sanchez Other Providers: [id number]; [facility]; [place]; [facility]; Cesar Nails; Roger Bruce; Chandu Perry Other Interventions: Discharge Summary Assessment (RN) Last Done: 03/12/24 11:34
== END 2024-03-12 12:43 | DRG 481 ==
LOC: ED 17:40 → SUATTDRO 18:48 → 3W 18:48
DX: Z88.6 Allergy status to analgesic agent; Z79.84 Long term (current) use of oral hypoglycemic drugs; K31.84 Gastroparesis; Y92.018 Other place in single-family (private) house as the place of occurrence of the external cause; Z88.2 Allergy status to sulfonamides; Z95.5 Presence of coronary angioplasty implant and graft; E03.9 Hypothyroidism, unspecified; D62 Acute posthemorrhagic anemia; I25.2 Old myocardial infarction; Z96.82 Presence of neurostimulator; E78.5 Hyperlipidemia, unspecified; M80.031A Age-related osteoporosis with current pathological fracture, right forearm, initial encounter for fracture; K21.9 Gastro-esophageal reflux disease without esophagitis; I25.10 Atherosclerotic heart disease of native coronary artery without angina pectoris; R73.03 Prediabetes; Z79.890 Hormone replacement therapy; Z98.1 Arthrodesis status; K29.30 Chronic superficial gastritis without bleeding; W10.9XXA Fall (on) (from) unspecified stairs and steps, initial encounter; Z79.82 Long term (current) use of aspirin; F32.A Depression, unspecified; F41.9 Anxiety disorder, unspecified; M80.051A Age-related osteoporosis with current pathological fracture, right femur, initial encounter for fracture